=== PATIENT | female | born 1935 | race Caucasian/White ===

== ENCOUNTER → 2016-06-13 | Outpatient (CLI) | payer MEDICARE, OTHER ==
[2016-06-13 15:13] LABS: Basophils # (A) 0.1 k/uL (0-0.2); Basophils % (A) 1 %; CH 29.7; CHCM 33.7; Eosinophils # (A) 0.1 k/uL (0-0.7); Eosinophils % (A) 2 %; HCT 35.5 % (34.0-46.0); HDW 3.29; HGB 11.7 gm/dL (11.4-16.0); Luc # (Auto) 0.09; Luc % (Auto) 2; Lymphocytes # (A) 1.2 k/uL (1.0-4.8); Lymphocytes % (A) 20 %; MCH 29.1 pg (25.0-35.0); MCHC 32.9 g/dL (31.0-37.0); MCV 88.6 fL (80.0-100.0); Mean Platelet Volume 8.7; Monocytes # (A) 0.4 k/uL (0-1.0); Monocytes % (A) 6 %; Neutrophils % (A) 68 %; RBC 4.01 m/uL (3.80-5.40); RDW 15.2 % (11.5-15.5); WBC 5.9 k/uL (3.8-10.6); WBC (Perox) 6.29
== END | disposition home or self-care (01) ==
LOC: LABWHC1 14:34
PROVIDERS: ATTEND Physical Medicine & Rehabilitation
DX: M48.06 Spinal stenosis, lumbar region (principal); M51.17 Intervertebral disc disorders with radiculopathy, lumbosacral region; M47.817 Spondylosis without myelopathy or radiculopathy, lumbosacral region; M62.81 Muscle weakness (generalized); M54.5 Low back pain; E11.8 Type 2 diabetes mellitus with unspecified complications; R20.2 Paresthesia of skin; Z51.81 Encounter for therapeutic drug level monitoring; Z79.01 Long term (current) use of anticoagulants
CPT/HCPCS: 36415; 85025; 87040

== ENCOUNTER → 2016-07-01 | Outpatient (CLI) | payer MEDICARE, OTHER ==
[2016-07-01 10:41] LABS: INR 1.1 (<1.1); Partial Thromboplastin Time 25.4 sec (22.0-30.0); Prothrombin Time 11.2 sec (9.0-12.0)
[2016-07-01 10:49] LABS: ALT 25 U/L (9-52); AST 18 U/L (14-36); Cholesterol 144 mg/dL (<200); HDL Cholesterol 83 mg/dL (40-60); Triglycerides 120 mg/dL (<150)
== END | disposition home or self-care (01) ==
LOC: LABWHC1 09:42
PROVIDERS: ATTEND Internal Medicine Interventional Cardiology
DX: E87.2 Acidosis (principal); M54.5 Low back pain; E11.8 Type 2 diabetes mellitus with unspecified complications; M48.06 Spinal stenosis, lumbar region; M51.17 Intervertebral disc disorders with radiculopathy, lumbosacral region; M47.817 Spondylosis without myelopathy or radiculopathy, lumbosacral region; M62.81 Muscle weakness (generalized); R20.2 Paresthesia of skin; B96.5 Pseudomonas (aeruginosa) (mallei) (pseudomallei) as the cause of diseases classified elsewhere; Z79.01 Long term (current) use of anticoagulants
CPT/HCPCS: 36415; 80061; 84450; 84460; 85610; 85730

== ENCOUNTER → 2016-10-23 | Outpatient (CLI) | payer MEDICARE, OTHER ==
[2016-10-23 12:54] LABS: Basophils # (A) 0.1 k/uL (0-0.2); Basophils % (A) 1 %; CH 29.7; CHCM 33.5; Eosinophils # (A) 0.2 k/uL (0-0.7); Eosinophils % (A) 3 %; HCT 36.9 % (34.0-46.0); HDW 3.05; HGB 12.2 gm/dL (11.4-16.0); Luc # (Auto) 0.12; Luc % (Auto) 2; Lymphocytes # (A) 1.4 k/uL (1.0-4.8); Lymphocytes % (A) 22 %; MCH 29.5 pg (25.0-35.0); MCHC 33.1 g/dL (31.0-37.0); MCV 89.1 fL (80.0-100.0); Mean Platelet Volume 8.9; Monocytes # (A) 0.4 k/uL (0-1.0); Monocytes % (A) 6 %; Neutrophils # (A) 4.3 k/uL (1.3-7.7); Neutrophils % (A) 67 %; RBC 4.14 m/uL (3.80-5.40); WBC 6.4 k/uL (3.8-10.6); WBC (Perox) 6.48
[2016-10-23 13:02] LABS: ALT 28 U/L (9-52); AST 21 U/L (14-36); Alkaline Phosphatase 69 U/L (38-126); Anion Gap 9 mmol/L; Blood Urea Nitrogen 22 mg/dL (7-17); Calcium 9.8 mg/dL (8.4-10.2); Carbon Dioxide 29 mmol/L (22-30); Chloride 102 mmol/L (98-107); Cholesterol 172 mg/dL (<200); Glucose 88 mg/dL (74-99); HDL Cholesterol 92 mg/dL (40-60); Non-African American GFR(MDRD) >60 (>60 ml/min/1.73 sqM); Potassium 4.1 mmol/L (3.5-5.1); Sodium 140 mmol/L (137-145); Total Bilirubin 0.8 mg/dL (0.2-1.3); Total Protein 6.8 g/dL (6.3-8.2); Triglycerides 110 mg/dL (<150)
[2016-10-23 14:11] LABS: Hemoglobin A1C 5.6 % (4.2-6.1)
== END | disposition home or self-care (01) ==
LOC: LABWHC1 12:21
PROVIDERS: ATTEND Internal Medicine Critical Care Medicine
DX: I48.91 Unspecified atrial fibrillation (principal); E11.9 Type 2 diabetes mellitus without complications; Z79.899 Other long term (current) drug therapy
CPT/HCPCS: 36415; 80053; 80061; 82306; 83036; 84439; 84443; 85025

== ENCOUNTER → 2016-12-02 | Outpatient (CLI) | payer MEDICARE, OTHER ==
[2016-12-02 11:27] LABS: ALT 29 U/L (9-52); AST 20 U/L (14-36); Alkaline Phosphatase 67 U/L (38-126); Anion Gap 11 mmol/L; Blood Urea Nitrogen 20 mg/dL (7-17); Calcium 9.6 mg/dL (8.4-10.2); Carbon Dioxide 28 mmol/L (22-30); Chloride 102 mmol/L (98-107); Cholesterol 143 mg/dL (<200); Glucose 100 mg/dL (74-99); HDL Cholesterol 79 mg/dL (40-60); Non-African American GFR(MDRD) >60 (>60 ml/min/1.73 sqM); Potassium 4.1 mmol/L (3.5-5.1); Sodium 141 mmol/L (137-145); Total Bilirubin 0.8 mg/dL (0.2-1.3); Total Protein 6.7 g/dL (6.3-8.2); Triglycerides 83 mg/dL (<150)
[2016-12-02 12:02] LABS: Partial Thromboplastin Time 24.4 sec (22.0-30.0)
[2016-12-02 12:04] LABS: INR 1.1 (<1.1); Prothrombin Time 11.1 sec (9.0-12.0)
== END | disposition home or self-care (01) ==
LOC: LABMAIN 10:45
PROVIDERS: ATTEND Physical Medicine & Rehabilitation
DX: E78.2 Mixed hyperlipidemia (principal); M54.5 Low back pain; E11.8 Type 2 diabetes mellitus with unspecified complications; M48.06 Spinal stenosis, lumbar region; M51.17 Intervertebral disc disorders with radiculopathy, lumbosacral region; M47.817 Spondylosis without myelopathy or radiculopathy, lumbosacral region; M62.81 Muscle weakness (generalized); R20.2 Paresthesia of skin; Z79.01 Long term (current) use of anticoagulants
CPT/HCPCS: 36415; 80053; 80061; 85610; 85730

== ENCOUNTER 2017-11-24 14:11 | Emergency (ER) | payer MEDICARE, OTHER ==
[2017-11-24 14:22] VITALS: RESP 16
--- NOTE | 2017-11-24 15:00 | XR ---
EXAMINATION TYPE: XR ribs RT w pa chest xray DATE OF EXAM: 11/24/2017 COMPARISON: NONE HISTORY: Pain TECHNIQUE: Single view of the chest 4 views of the ribs are submitted. FINDINGS: Scattered senescent parenchymal changes are noted. No Evidence for pneumothorax. No eviden ce for focal contusion. Mediastinal structures are midline. Evaluation of the ribs fails to demonst rate evidence for displaced rib fracture or secondary sign of rib fracture. Severe degenerative quintanilla e right shoulder and to a lesser extent left shoulder. Loose bodies noted bilaterally. IMPRESSION: No evidence for pulmonary contusion, pneumothorax or displaced rib fracture.
--- NOTE | 2017-11-24 15:14 | XR ---
EXAMINATION TYPE: XR knee complete LT DATE OF EXAM: 11/24/2017 CLINICAL HISTORY: pain TECHNIQUE: Three views of the left knee are obtained. COMPARISON: None. FINDINGS: There is no acute fracture/dislocation. The tri-compartment joint spaces appear severely narrowed. The small patellar joint effusion. Overlying soft tissue appears unremarkable. IMPRESSION: There is no acute fracture or dislocation ICD 10 NO FRACTURE, INITIAL EVALUATION
--- NOTE | 2017-11-24 15:47 | ED ---
Fall HPI - General Chief Complaint: Fall Stated Complaint: fall/knee & side pain Time Seen by Provider: 11/24/17 14:27 Source: patient Mode of arrival: wheelchair - History of Present Illness Initial Comments: 82-year-old female patient presents the emergency department today for evaluation of right rib pain and left knee pain after experiencing a fall today. Patient states that around 10:30 this morning she was walking with her walker when she fell. States that she has been having some discomfort to her left knee when she bends it. States that she is having sharp pain in her right lateral ribs. States it hurts worse with taking deep breaths and with palpation of the area. She denies any shortness of breath or chest pain with this. She denies hitting her head or losing consciousness during the fall. Patient denies use of anticoagulants. Patient denies any headache, neck pain, back pain, chest pain, shortness of breath, dizziness, weakness, abdominal pain , nausea, vomiting, or difficulties with bowel movements or urination. - Related Data Home Medications Medication Instructions Recorded Confirmed Unable To Assess [Unable to Assess] 11/24/17 11/24/17 Allergies Allergy/AdvReac Type Severity Reaction Status Date / Time No Known Allergies Allergy Verified 11/24/17 14:28 Review of Systems ROS Statement: Those systems with pertinent positive or pertinent negative responses have been documented in the HPI. ROS Other: All systems not noted in ROS Statement are negative. Past Medical History Past Medical History: Atrial Fibrillation, Diabetes Mellitus, Hypertension Additional Past Medical History / Comment(s): skinny bones History of Any Multi-Drug Resistant Organisms: None Reported Past Surgical History: Cholecystectomy Additional Past Surgical History / Comment(s): knee surgery x 3 (right knee). Hammer toe Past Psychological History: No Psychological Hx Reported Smoking Status: Current every day smoker Past Alcohol Use History: None Reported, Occasional Past Drug Use History: None Reported General Exam Limitations: no limitations General appearance: alert, in no apparent distress, other (This is a well- developed, well-nourished elderly female patient in no acute distress. Vital signs upon presentation are temperature 97.4F, pulse 87, respiration 16, blood pressure 105/64, pulse ox 97% on room air.) Head exam: Present: atraumatic, normocephalic, normal inspection Eye exam: Present: normal appearance, PERRL, EOMI. Absent: scleral icterus, conjunctival injection, periorbital swelling ENT exam: Present: normal exam, mucous membranes moist Neck exam: Present: normal inspection, full ROM, other (Nontender, no step-off, no deformity to firm midline palpation of the posterior cervical spine. Full range of motion without pain or limitation.). Absent: tenderness, meningismus, lymphadenopathy Respiratory exam: Present: normal lung sounds bilaterally, chest wall tenderness (Right lateral rib tenderness over the midaxillary line. No evidence of ecchymosis or swelling. No bony step-off or bony deformity noted to palpation.), other (Respirations even and unlabored.). Absent: respiratory distress, wheezes, rales, rhonchi, stridor Cardiovascular Exam: Present: regular rate, normal rhythm, normal heart sounds. Absent: systolic murmur, diastolic murmur, rubs, gallop, clicks GI/Abdominal exam: Present: soft, normal bowel sounds. Absent: distended, tenderness, guarding, rebound, rigid Extremities exam: Present: full ROM, normal capillary refill, other (Patient has superficial abrasion noted to the left anterior knee. Some surrounding ecchymosis. Mild swelling. Patient has full range of motion but does report increased pain have full flexion. Skin to the lower extremities is pink, warm, and dry. Cap refills less than 3 seconds. Pedal and posttibial pulses are 2+ and equal bilaterally. Patient also has a linear strip of ecchymosis over the right hip. There is no hip tenderness. No pain with walking.). Absent: normal inspection, tenderness, pedal edema, joint swelling, calf tenderness Back exam: Present: normal inspection, other (Nontender, no step-off, no deformity to firm midline palpation of the thoracic and lumbar vertebrae. Full range of motion without pain or limitation.). Absent: vertebral tenderness Neurological exam: Present: alert, oriented X3, CN II-XII intact Psychiatric exam: Present: normal affect, normal mood Skin exam: Present: warm, dry, intact, normal color. Absent: rash Course Vital Signs 11/24/17 14:18 Temperature 97.4 F L Pulse Rate 87 Respiratory 16 Rate Blood Pressure 105/64 O2 Sat by Pulse 97 Oximetry Medical Decision Making - Medical Decision Making 82-year-old female patient presented to the emergency department today for evaluation of right rib pain and left knee pain after expressing a fall this morning at 10:30. Physical examination did reveal some tenderness to the right lateral ribs at the midaxillary line. Lungs are clear to auscultation with good air movement. Patient had ecchymosis noted to the right lateral hip with no hip tenderness or difficulty with ambulation. There is also evidence of left anterior knee abrasion with full range of motion and minimal bony tenderness. X-rays of the ribs and the knee showed no acute evidence of fracture. Did discuss findings with the patient. We did discuss coughing and deep breathing exercises for rib contusion. She does have tramadol at home, she is urged to take this for pain control. She is instructed to follow-up with her primary care physician for recheck in 1-2 days. Return parameters discussed in detail. She verbalizes understanding and agrees with this plan. - Radiology Data Radiology results: report reviewed, image reviewed 3 views of the left knee are obtained. There is no fracture nor dislocation. The tricompartment joint spaces appear severely narrowed. The small patellar joint effusion. Overlying soft tissue appears unremarkable. Impression by Dr. Blood shows no acute fracture dislocation noted. Single view of the chest and 4 views of the right ribs are submitted. Scattered senescent parenchymal changes are noted. No evidence for pneumothorax. No evidence for focal contusion. Mediastinal structures are midline. Evaluation of the ribs fails to demonstrate evidence for displaced rib fracture secondary sign of rib fracture. Severe degenerative change right shoulder and to a lesser extent left shoulder. Loose bodies noted bilaterally. Impression by Dr. Blood shows no evidence for pulmonary contusion, pneumothorax, or displaced rib fracture. Disposition Clinical Impression: Contusion of rib on right side, Contusion of left knee Disposition: HOME SELF-CARE Condition: Good Instructions: Fall Prevention for Older Adults (ED), Knee Pain (ED), Rib Contusion (ED) Additional Instructions: Continue taking home pain medication as needed. Perform coughing and deep breathing exercises to prevent pneumonia. Follow-up with your primary care physician for recheck in 1-2 days. Return here immediately for any new, worsening, or concerning symptoms. Is patient prescribed a controlled substance at d/c from ED?: No Referrals: George Quesada DO [Primary Care Provider] - 1-2 days Time of Disposition: 15:47
[2017-11-24 16:03] VITALS: BP 110/78; PULSE 81; TEMP 98.2
== END 2017-11-24 15:59 | disposition home or self-care (01) ==
LOC: EC 14:11
DX: S20.211A Contusion of right front wall of thorax, initial encounter (principal); S80.02XA Contusion of left knee, initial encounter; F17.200 Nicotine dependence, unspecified, uncomplicated; W19.XXXA Unspecified fall, initial encounter; Y92.009 Unspecified place in unspecified non-institutional (private) residence as the place of occurrence of the external cause
CPT/HCPCS: 99283

== ENCOUNTER → 2018-05-10 | Outpatient (CLI) | payer MEDICARE, OTHER ==
[2018-05-10 11:27] LABS: Basophils % (A) 1 %; Eosinophils # (A) 0.2 k/uL (0-0.7); Eosinophils % (A) 4 %; HCT 35.7 % (34.0-46.0); Lymphocytes # (A) 1.3 k/uL (1.0-4.8); Lymphocytes % (A) 21 %; MCH 30.5 pg (25.0-35.0); MCHC 33.7 g/dL (31.0-37.0); MCV 90.5 fL (80.0-100.0); Mean Platelet Volume 8.6; Monocytes # (A) 0.4 k/uL (0-1.0); Monocytes % (A) 7 %; Neutrophils # (A) 3.9 k/uL (1.3-7.7); Neutrophils % (A) 66 %; Platelet Count 128 k/uL (150-450); RBC 3.94 m/uL (3.80-5.40); RDW 14.7 % (11.5-15.5); WBC 5.9 k/uL (3.8-10.6)
[2018-05-10 17:20] LABS: Albumin 4.4 g/dL (3.80-4.90); Albumin/Globulin Ratio 2.44 (1.20-2.10); Anion Gap 6.1 mmol/L (4.00-12.00); Calcium 9.7 mg/dL (8.7-10.3); Carbon Dioxide 28.9 mmol/L (21.6-31.8); Globulin 1.8 g/dL (2.1-3.7); Potassium 4.2 mmol/L (3.5-5.5); Total Bilirubin 0.8 mg/dL (0.3-1.2); Total Protein 6.2 g/dL (6.2-8.2)
[2018-05-10 21:42] LABS: Hemoglobin A1C 5.3 % (4.0-6.0)
== END | disposition home or self-care (01) ==
LOC: LABWHC1 09:47
PROVIDERS: ATTEND Internal Medicine Interventional Cardiology
DX: E78.00 Pure hypercholesterolemia, unspecified (principal); G47.00 Insomnia, unspecified; I10 Essential (primary) hypertension; K21.9 Gastro-esophageal reflux disease without esophagitis; E11.9 Type 2 diabetes mellitus without complications; J44.9 Chronic obstructive pulmonary disease, unspecified; I25.10 Atherosclerotic heart disease of native coronary artery without angina pectoris; E78.2 Mixed hyperlipidemia
CPT/HCPCS: 36415; 80053; 80061; 82306; 83036; 84439; 84443; 85025

== ENCOUNTER 2018-10-10 20:17 | Emergency (ER) | payer MEDICARE, OTHER ==
[2018-10-10 20:28] VITALS: RESP 16; TEMP 98
[2018-10-10] MEDS ORDERED: DIPH,PERTUS(ACELL)TETVAC-LF 0.5 ML VIAL IM ONE (21:31)
[2018-10-10] MEDS ORDERED: LIDOCAINE 1% INJ 10MG/ML (20 ML MDV) SQ ONE (21:45)
--- NOTE | 2018-10-10 22:34 | ED ---
Wound/Laceration HPI - General Chief Complaint: Wound/Laceration Stated Complaint: Leg lac Time Seen by Provider: 10/10/18 20:43 Source: patient, family Mode of arrival: ambulatory Limitations: no limitations - History of Present Illness Initial Comments: The patient is an 83-year-old female who presents to the emergency department with complaint of laceration to her right hernandez. The patient was getting into the car when she scraped her leg against the edge of the door. She did sustain a laceration. The patient is on Eliquis for A. fib and did have significant bleeding from the site. Family did hold compression and brought the patient to the emergency room for evaluation. The patient does have chronic venous stasis of her lower extremities. She does have 4+ pitting edema which she states is chronic for her. Her PCP does recommend treatment with Lasix however the patient states she refuses to take any additional suggested amounts. she has seen her primary care physician as well as wound care. She admits that her lower extremity wounds are at their baseline and no worse than normal. No increased swelling, redness or pustular drainage. Bleeding was controlled upon arrival. She denies any other injuries. She is unsure of her last tetanus vaccination. She denies a crush injury to her lower extremity. She was able to ambulate without difficulty. There are no other alleviating, precipitating or modifying factors - Related Data Home Medications Medication Instructions Recorded Confirmed Apixaban [Eliquis] 2.5 mg PO BID 10/10/18 10/10/18 Ascorbic Acid [Vitamin C] 500 mg PO DAILY 10/10/18 10/10/18 Atorvastatin [Lipitor] 40 mg PO DAILY 10/10/18 10/10/18 Cetirizine HCl [Zyrtec] 10 mg PO DAILY 10/10/18 10/10/18 Cholecalciferol [Vitamin D3 (25 1,000 unit PO DAILY 10/10/18 10/10/18 Mcg = 1000 Iu)] Fosinopril/Hydrochlorothiazide 1 tab PO DAILY 10/10/18 10/10/18 [Monopril HCT 10-12.5 mg] Latanoprost/Pf [Latanoprost 0.005% 1 drop BOTH EYES HS 10/10/18 10/10/18 Eye Drop] Metoprolol Tartrate [Lopressor] 50 mg PO DAILY 10/10/18 10/10/18 Multivitamins, Thera [Multivitamin 1 tab PO DAILY 10/10/18 10/10/18 (formulary)] Timolol 0.5% Ophth Soln [Timoptic 1 drop LEFT EYE BID 10/10/18 10/10/18 0.5% Ophth Soln] metFORMIN HCL [metFORMIN HCL ER] 750 mg PO BID 10/10/18 10/10/18 traMADol HCL [Ultram] 50 mg PO Q6HR PRN 10/10/18 10/10/18 Allergies Allergy/AdvReac Type Severity Reaction Status Date / Time No Known Allergies Allergy Verified 10/10/18 21:00 Review of Systems ROS Statement: Those systems with pertinent positive or pertinent negative responses have been documented in the HPI. ROS Other: All systems not noted in ROS Statement are negative. Past Medical History Past Medical History: Atrial Fibrillation, Diabetes Mellitus, Hypertension Additional Past Medical History / Comment(s): skinny bones History of Any Multi-Drug Resistant Organisms: None Reported Past Surgical History: Cholecystectomy Additional Past Surgical History / Comment(s): knee surgery x 5 (right knee). Hammer toe Past Psychological History: No Psychological Hx Reported Smoking Status: Current every day smoker Past Alcohol Use History: Occasional Past Drug Use History: None Reported General Exam Limitations: no limitations Extremities exam: Present: normal inspection, normal capillary refill, pedal edema, other (The patient does have 4+ pitting edema to her bilateral lower extremities. She has chronic venous stasis with brawny edema. There is a red discoloration noted to the shins which is worse on the right hernandez. She states this is chronic for her. She has decreased extension with the right knee secondary to previous surgical repair. She states she does not have a patella on the right. She is ambulatory without difficulty.) Skin exam: Present: other (The patient has a 5 cm laceration noted over the anterior lateral aspect of her right hernandez. Bleeding is controlled at this time. Meticulous exploration in a bloodless field reveals no deep structure involvement. No tendon, vascular or nerve involvement. No underlying bony fracture or retained foreign bodies. The patient does have intact dorsalis pedis and posterior tibial pulses. Cap refill is less than 3 seconds) Course Vital Signs 10/10/18 10/10/18 20:25 22:56 Temperature 98 F Pulse Rate 84 72 Respiratory 16 16 Rate Blood Pressure 124/70 115/85 O2 Sat by Pulse 90 L 98 Oximetry Procedures - Laceration Laceration #1 Consent Obtained: verbal consent Indication: laceration Site: lower extremity Size (cm): 5 Description: linear Depth: simple, single layer Anesthetic Used: lidocaine 1%, without epi Anesthesia Technique: local infiltration Amount (mls): 15 Pre-repair: wound explored, irrigated extensively, deep structures intact Type of Sutures: nylon Size of Sutures: 4-0 Number of Sutures: 5 Technique: simple, interrupted Patient Tolerated Procedure: well, no complications Medical Decision Making - Medical Decision Making The patient was placed into room 11. I did update the patient's tetanus shot. The patient's wound was cleansed and explored. Suture repair was performed. Please see procedure note. Patient is to follow-up with her primary care physician within 2-4 days for evaluation of the wound. She must have her sutures removed in 7-10 days. If the patient has any new or worsening symptoms, she needs to return to the emergency Department immediately. She is educated on the warning signs of infection. The patient was discharged home ambulatory in stable condition - Differential Diagnosis skin laceration, blunt trauma, eliquis coagulopathy Disposition Clinical Impression: Laceration Disposition: HOME SELF-CARE Condition: Stable Instructions (If sedation given, give patient instructions): Care For Your Stitches (ED), Laceration (ED) Additional Instructions: Please follow-up with your doctor in 2-4 days for reevaluation. You will need your stitches out in 7-10 days. Return to the emergency department for any pustular drainage, increasing redness or swelling. Is patient prescribed a controlled substance at d/c from ED?: No Referrals: George Quesada DO [Primary Care Provider] - 1-2 days Time of Disposition: 22:33
[2018-10-10 22:56] VITALS: BP 115/85; PULSE 72
== END 2018-10-10 23:45 | disposition home or self-care (01) ==
LOC: EC 20:17
DX: S81.811A Laceration without foreign body, right lower leg, initial encounter (principal); I48.91 Unspecified atrial fibrillation; E11.9 Type 2 diabetes mellitus without complications; I10 Essential (primary) hypertension; F17.200 Nicotine dependence, unspecified, uncomplicated; Z23 Encounter for immunization; Z79.01 Long term (current) use of anticoagulants; Z79.84 Long term (current) use of oral hypoglycemic drugs; Z79.899 Other long term (current) drug therapy; W26.8XXA Contact with other sharp object(s), not elsewhere classified, initial encounter
CPT/HCPCS: 90715; 99282; 12002; 90471; J2001

== ENCOUNTER → 2019-07-12 | Outpatient (CLI) | payer MEDICARE, OTHER ==
[2019-07-12 13:02] LABS: Basophils % (A) 1 %; Eosinophils # (A) 0.2 k/uL (0-0.7); Eosinophils % (A) 4 %; HCT 34.1 % (34.0-46.0); HGB 10.7 gm/dL (11.4-16.0); Lymphocytes # (A) 0.9 k/uL (1.0-4.8); Lymphocytes % (A) 19 %; MCHC 31.5 g/dL (31.0-37.0); MCV 95.2 fL (80.0-100.0); Mean Platelet Volume 9.7; Monocytes # (A) 0.2 k/uL (0-1.0); Monocytes % (A) 5 %; Neutrophils # (A) 3.2 k/uL (1.3-7.7); Neutrophils % (A) 70 %; Platelet Count 114 k/uL (150-450); RBC 3.58 m/uL (3.80-5.40); RDW 13.8 % (11.5-15.5); WBC 4.6 k/uL (3.8-10.6)
[2019-07-12 18:46] LABS: African American GFR (CKD) 60.8 (60.0-200.0); Albumin 4.4 g/dL (3.80-4.90); Albumin/Globulin Ratio 2.44 (1.60-3.17); Anion Gap 5.3 mmol/L (4.00-12.00); Calcium 9.5 mg/dL (8.7-10.3); Carbon Dioxide 28.7 mmol/L (21.6-31.8); Chol/HDL Ratio 1.6; Globulin 1.8 g/dL (1.6-3.3); LDL Cholesterol,Calculated 41.4 mg/dL (0.0-131.0); Non-African American GFR(CKD) 52.4 (60.0-200.0); Potassium 4.5 mmol/L (3.5-5.5); Total Bilirubin 0.9 mg/dL (0.2-1.2); Total Protein 6.2 g/dL (6.2-8.2); VLDL Calculation 10.6 mg/dL (5.00-40.00)
[2019-07-12 18:53] LABS: T4, Free (Free Thyroxine) 1.1 ng/dL (0.80-1.80)
[2019-07-12 21:09] LABS: Hemoglobin A1C 5.4 % (4.0-6.0)
== END | disposition home or self-care (01) ==
LOC: LABWHC1 12:07
PROVIDERS: ATTEND Internal Medicine Critical Care Medicine
DX: I10 Essential (primary) hypertension (principal); H81.10 Benign paroxysmal vertigo, unspecified ear; E78.5 Hyperlipidemia, unspecified; E11.9 Type 2 diabetes mellitus without complications; I48.91 Unspecified atrial fibrillation; G47.09 Other insomnia
CPT/HCPCS: 36415; 80053; 80061; 82306; 83036; 84439; 84443; 85025

== ENCOUNTER → 2019-12-02 | Outpatient (CLI) | payer MEDICARE, OTHER ==
[2019-12-02 17:41] LABS: Albumin 4.1 g/dL (3.80-4.90); Albumin/Globulin Ratio 2.05 (1.60-3.17); Anion Gap 5.5 mmol/L (4.00-12.00); BUN/Creat Ratio 25.56 Ratio (12.00-20.00); Calcium 9.5 mg/dL (8.7-10.3); Carbon Dioxide 29.5 mmol/L (21.6-31.8); Chol/HDL Ratio 1.6; LDL Cholesterol,Calculated 36.2 mg/dL (0.0-131.0); Non-African American GFR(CKD) 59.5 (60.0-200.0); Potassium 4.3 mmol/L (3.5-5.5); Total Bilirubin 1.1 mg/dL (0.2-1.2); Total Protein 6.1 g/dL (6.2-8.2); VLDL Calculation 10.8 mg/dL (5.00-40.00)
== END | disposition home or self-care (01) ==
LOC: LABWHC1 11:07
PROVIDERS: ATTEND Internal Medicine Interventional Cardiology
DX: E78.2 Mixed hyperlipidemia (principal)
CPT/HCPCS: 36415; 80053; 80061

== ENCOUNTER → 2019-12-26 | Outpatient (CLI) | payer MEDICARE, OTHER ==
[2019-12-26 14:57] LABS: Basophils % (A) 1 %; Eosinophils # (A) 0.1 k/uL (0-0.7); Eosinophils % (A) 3 %; HCT 32.2 % (34.0-46.0); HGB 10.8 gm/dL (11.4-16.0); Lymphocytes # (A) 0.9 k/uL (1.0-4.8); Lymphocytes % (A) 18 %; MCH 30.9 pg (25.0-35.0); MCHC 33.4 g/dL (31.0-37.0); MCV 92.6 fL (80.0-100.0); Mean Platelet Volume 8.8; Monocytes # (A) 0.3 k/uL (0-1.0); Monocytes % (A) 6 %; Neutrophils # (A) 3.6 k/uL (1.3-7.7); Neutrophils % (A) 72 %; Platelet Count 100 k/uL (150-450); RBC 3.48 m/uL (3.80-5.40); RDW 14.1 % (11.5-15.5)
[2019-12-26 21:37] LABS: African American GFR (CKD) 60.8 (60.0-200.0); Albumin 4.3 g/dL (3.80-4.90); Albumin/Globulin Ratio 2.15 (1.60-3.17); Anion Gap 6.9 mmol/L (4.00-12.00); Calcium 9.4 mg/dL (8.7-10.3); Carbon Dioxide 27.1 mmol/L (21.6-31.8); Non-African American GFR(CKD) 52.4 (60.0-200.0); Potassium 4.6 mmol/L (3.5-5.5); Total Bilirubin 1.1 mg/dL (0.3-1.2); Total Protein 6.3 g/dL (6.2-8.2)
== END | disposition home or self-care (01) ==
LOC: LABWHC1 12:28
PROVIDERS: ATTEND Internal Medicine Critical Care Medicine
DX: D50.9 Iron deficiency anemia, unspecified (principal)
CPT/HCPCS: 36415; 80053; 85025

== ENCOUNTER → 2020-01-17 | Outpatient (CLI) | payer MEDICARE, OTHER ==
[2020-01-17 15:23] LABS: HCT 33.6 % (34.0-46.0); MCH 29.9 pg (25.0-35.0); MCHC 32.6 g/dL (31.0-37.0); MCV 91.5 fL (80.0-100.0); Mean Platelet Volume 9.1; Platelet Count 104 k/uL (150-450); RBC 3.67 m/uL (3.80-5.40); RDW 14.3 % (11.5-15.5); WBC 6.6 k/uL (3.8-10.6)
[2020-01-17 15:34] LABS: Potassium 4.7 mmol/L (3.5-5.1)
== END | disposition home or self-care (01) ==
LOC: LABPAT 13:53
PROVIDERS: ATTEND Internal Medicine Interventional Cardiology
DX: Z01.818 Encounter for other preprocedural examination (principal); E78.2 Mixed hyperlipidemia; I48.19 Other persistent atrial fibrillation
CPT/HCPCS: 36415; 80051; 82565; 82947; 84520; 85027

== ENCOUNTER 2020-01-24 09:28 | Day surgery (SDC) | payer MEDICARE, OTHER ==
[2020-01-17 13:08] VITALS: BMI 31.3
[~2020-01-24 09:28] MED LIST: ALPRAZolam 0.25 MG TAB PO PRN; ALPRAZolam 0.5 MG TAB PO PRN; ASPIRIN 325 MG TAB PO STA; ATORVASTATIN 80 MG TAB PO STA; NITROGLYCERIN SL TABS 0.4 MG TAB SUBLINGUAL PRN; SODIUM CHLORIDE 0.9% 1,000 ML in EMPTY BAG 1 BAG IV ONE
[2020-01-24 10:08] LABS: Glucose,Whole Blood 113 mg/dL (75-99)
[2020-01-24] MEDS ORDERED: fentaNYL (PF) 50 MCG/ML 2 ML AMP ONE ×2 (11:27)
[2020-01-24] MEDS ORDERED: BENZOCAINE SPRAY 1 CAN TOPICAL ONE ×2 (11:42→11:48)
[2020-01-24] MEDS ORDERED: MIDAZOLAM 2 MG/2 ML VIAL IV ONE (11:48)
[2020-01-24] MEDS ORDERED: fentaNYL (PF) 50 MCG/ML 2 ML AMP IV ONE (11:50)
--- NOTE | 2020-01-24 12:30 | ECHOT ---
TRANSESOPHAGEAL ECHOCARDIOGRAM TRANSESOPHAGEAL ECHOCARDIOGRAM: INDICATION: Evaluation of aortic valve. PROCEDURE: After explaining the procedure to the patient with risks and complication, blood pressure, heart rate, O2 saturation was monitored. The throat was sprayed with Cetacaine. She received 1 mg intravenous Versed, 50 mcg intravenous fentanyl the probe was introduced in the esophagus without difficulty. Images were obtained. Following that, the probe was removed. There was no immediate complication. Biatrial enlargement was noted. Left atrial appendage is normal. Left ventricular size and systolic function normal. The aortic valve is a tricuspid valve with severe fibrocalcific changes with reduced deduction of the opening. The biplanimetry valve area is between 0.5 and 0.6 cm2. The mitral anulus calcification was noted, tricuspid valve is normal. Descending thoracic aorta revealed mild to moderate atherosclerotic changes. No pericardial effusion was noted. Contrast bubble study revealed no evidence of shunting across the interatrial septum with Valsalva maneuver. Doppler pulse wave and color Doppler obtained revealed moderate mitral with moderate tricuspid regurgitation and mild to moderate aortic regurgitation. The peak gradient across the aortic valve was 75 mmHg with a mean of 51 mmHg. There was no shunting by color Doppler study. CONCLUSION: 1. Biatrial enlargement. 2. Normal appearance of left atrial appendage. 3. Normal left ventricular size and systolic function. 4. Severe aortic stenosis with a mean gradient of 51 mmHg and mild to moderate aortic regurgitation. 5. Moderate tricuspid regurgitation with mitral anulus calcification. 6. Moderate tricuspid regurgitation. 7. No pericardial effusion. 8. No shunting across the interatrial septum. MMODL / IJN: [id number] /
[2020-01-24] MEDS ORDERED: LIDOCAINE 1% INJ 10MG/ML (20 ML MDV) SQ ONE (12:38)
[2020-01-24] MEDS ORDERED: IOPAMIDOL-370 125ML BTL INJ ONE (13:02)
[2020-01-24 13:04] LABS: O2 Sat Blood Gas 99.2 %
[2020-01-24 13:06] LABS: O2 Sat Blood Gas 69.4 %
[2020-01-24] MEDS ORDERED: RX INFO: IV CONTRAST WAS GIVEN 1 EACH MISC MISCELLANE PRN (13:09)
[2020-01-24 13:11] LABS: O2 Sat Blood Gas 70.3 %
[2020-01-24] MEDS ORDERED: SODIUM CHLORIDE 0.9% 1,000 ML IV SCH (13:15)
[2020-01-24 14:16] VITALS: RESP 16; TEMP 98.1
--- NOTE | 2020-01-24 14:56 | CC ---
CARDIAC CATHETERIZATION REPORT Mrs. Miranda is an 84-year-old female with known history of aortic stenosis, history of diabetes, hypertension, who has been complaining of progressive dyspnea on exertion, was found to have severe aortic stenosis. A long discussion with her and her family regarding the options. Patient elected to proceed with further evaluation for possible TAVR. The procedures, risks, and complications were discussed with the patient, who is in full understanding and agreement. PROCEDURE: Patient was brought to labor relations consultant in a fasting semi-sedated state after receiving fentanyl and Benadryl and achieving moderate conscious sedated state. Using Xylocaine anesthesia and Seldinger technique, a 6-Cymro sheath was introduced in the right rate of right femoral artery and an 8-Cymro sheath in the right femoral vein. Right heart catheterization was performed using Willmar-Neetu catheter, multiple impressions and samples were obtained. Cardiac output by thermodilution was calculated. Following that, selective right and left coronary angiography were performed using 6- Cymro 4 bend, right and left Morris catheter,. multiple views of the coronary artery including hemiaxial views obtained. Following that, the right Morris was used to cross the aortic valve and pressures were calculated. Following that, catheter and sheath were removed. Hemostasis was obtained with compression of right groin. There was no immediate complication. Patient is returned to her room in stable condition. FINDINGS: HEMODYNAMICS: Pulmonary capillary wedge pressure of 28 with a mean of 60 mmHg, pulmonary artery systolic pressure of 40, diastolic of 16 with a mean of 25 mmHg. Right ventricle systolic pressure 42 mmHg with an end-diastolic of 10-12 mmHg, right atrial V- wave of 12 with a mean of 11 mmHg Left ventricular systolic pressure of 140 with an ascending aortic pressure of 89 with a peak gradient of 51 mmHg. Pulmonary artery saturation of 69.4 right atrium, 70% and femoral artery saturation 99%. Cardiac output by thermodilution was 5 L/minute and by Ema 4.1 L/minute. Aortic valve area 0.93 cm2. FLUOROSCOPY: Calcification of the coronary arteries was noted as well as calcification of the aortic valve. EFT MAIN: This is a large-sized vessel, bifurcating into left circumflex, left anterior descending artery. Left main coronary artery has no evidence of high- grade stenosis. LEFT ANTERIOR DESCENDING ARTERY: This is a large-sized vessel, reaching toward the apex giving rise to a large diagonal branch proximally at the takeoff of diagonal branch there is 20% to 30% plaque. The rest of the vessel has no high-grade stenosis. LEFT CIRCUMFLEX: This is a large dominant vessel giving rise to one obtuse marginal branch, distally PDA and PLV. The left circumflex has mild intimal disease in the distal segment, about 20% left circumflex. This is a codominant vessel giving rise to a right PDA. The right coronary artery has no evidence of high-grade stenosis. LEFT VENTRICULOGRAM: Left ventriculogram is not performed. CONCLUSION: 1. Calcified coronary artery with mild coronary artery disease. 2. Severe aortic stenosis. 3. Peripheral artery disease. RECOMMENDATION: In view of finding anatomy, I recommend proceeding with evaluation for aortic valve replacement. The rationale behind the procedure, its risks, as well as the findings were discussed with the patient and her family and they are in full understanding and agreement. Duration of sedation is 24 minutes. MMTANESHAL / RISHABHN: [id number] / [id number]
[2020-01-24 16:37] LABS: Glucose,Whole Blood 95 mg/dL (75-99)
[2020-01-24 17:22] VITALS: BP 112/63; PULSE 93
[2020-01-24] MEDS ORDERED: LATANOPROST 0.005% OPHTH DROPS 2.5 ML BTL RIGHT EYE SCH (21:00)
[2020-01-25] MEDS ORDERED: METOPROLOL TARTRATE 50 MG TAB PO SCH (09:00)
[2020-01-25] MEDS ORDERED: hydroCHLOROthiazide 12.5 MG CAP PO SCH (09:00)
[2020-01-25] MEDS ORDERED: lisinopriL 10 MG TAB PO SCH (09:00)
[2020-01-25] MEDS ORDERED: MULTIVITAMINS, THERA 1 EACH TAB PO SCH (09:00)
[2020-01-25] MEDS ORDERED: ASCORBIC ACID 500 MG TAB PO SCH (09:00)
[2020-01-26] MEDS ORDERED: ATORVASTATIN 40 MG TAB PO SCH (09:00)
== END 2020-01-24 19:30 | disposition home or self-care (01) ==
LOC: CATHCVL 09:28 → 3NCARDOBS 13:05 → CATHCVL 19:30
PROVIDERS: ATTEND Internal Medicine Interventional Cardiology
DX: I25.10 Atherosclerotic heart disease of native coronary artery without angina pectoris (principal); I08.3 Combined rheumatic disorders of mitral, aortic and tricuspid valves; I10 Essential (primary) hypertension; I48.19 Other persistent atrial fibrillation; I73.9 Peripheral vascular disease, unspecified; E78.2 Mixed hyperlipidemia; E11.9 Type 2 diabetes mellitus without complications; J44.9 Chronic obstructive pulmonary disease, unspecified; M19.90 Unspecified osteoarthritis, unspecified site; F17.210 Nicotine dependence, cigarettes, uncomplicated; Z79.01 Long term (current) use of anticoagulants; Z79.84 Long term (current) use of oral hypoglycemic drugs; Z79.899 Other long term (current) drug therapy; Z96.651 Presence of right artificial knee joint; Z90.49 Acquired absence of other specified parts of digestive tract
CPT/HCPCS: 93312; 93320; 93325; 93460; 85018; 82810; C1769 ×2; C1894 ×2; J2250; J2001; J3010; Q9967

== ENCOUNTER → 2020-03-08 | Outpatient (CLI) | payer MEDICARE, OTHER ==
[2020-03-08 12:05] LABS: HCT 34.1 % (34.0-46.0); HGB 11.1 gm/dL (11.4-16.0); Hypochromasia Slight; MCH 31.2 pg (25.0-35.0); MCHC 32.7 g/dL (31.0-37.0); MCV 95.5 fL (80.0-100.0); Mean Platelet Volume 8.7; Platelet Count 116 k/uL (150-450); RBC 3.57 m/uL (3.80-5.40); RDW 14.5 % (11.5-15.5); WBC 4.4 k/uL (3.8-10.6)
[2020-03-09 00:58] LABS: African American GFR (CKD) 60.3 (60.0-200.0); Albumin 4.5 g/dL (3.80-4.90); Albumin/Globulin Ratio 2.25 (1.60-3.17); Anion Gap 10.6 mmol/L (4.00-12.00); Calcium 9.6 mg/dL (8.7-10.3); Carbon Dioxide 25.4 mmol/L (21.6-31.8); Non-African American GFR(CKD) 52.1 (60.0-200.0); Potassium 4.5 mmol/L (3.5-5.5); Total Bilirubin 1.2 mg/dL (0.3-1.2); Total Protein 6.5 g/dL (6.2-8.2)
== END | disposition home or self-care (01) ==
LOC: LABWHC1 10:28
PROVIDERS: ATTEND Student in an Organized Health Care Education/Training Program
DX: I10 Essential (primary) hypertension (principal); R06.02 Shortness of breath
CPT/HCPCS: 36415; 80053; 83880; 85027

== ENCOUNTER → 2020-06-06 | Outpatient (CLI) | payer MEDICARE, OTHER ==
[2020-06-06 16:42] LABS: African American GFR (CKD) 53.8 (60.0-200.0); Albumin 4.4 g/dL (3.80-4.90); Albumin/Globulin Ratio 2.2 (1.60-3.17); Anion Gap 9.5 mmol/L (4.00-12.00); BUN/Creat Ratio 31.82 Ratio (12.00-20.00); Calcium 9.5 mg/dL (8.7-10.3); Carbon Dioxide 27.5 mmol/L (21.6-31.8); Chol/HDL Ratio 1.71; LDL Cholesterol,Calculated 43.8 mg/dL (0.0-131.0); Non-African American GFR(CKD) 46.4 (60.0-200.0); Potassium 4.3 mmol/L (3.5-5.5); Total Bilirubin 0.9 mg/dL (0.3-1.2); Total Protein 6.4 g/dL (6.2-8.2); VLDL Calculation 15.2 mg/dL (5.00-40.00)
== END | disposition home or self-care (01) ==
LOC: LABWHC1 09:58
PROVIDERS: ATTEND Internal Medicine Interventional Cardiology
DX: E78.2 Mixed hyperlipidemia (principal)
CPT/HCPCS: 36415; 80053; 80061

== ENCOUNTER → 2020-12-12 | Outpatient (CLI) | payer MEDICARE, OTHER ==
[2020-12-12 18:13] LABS: Basophils # (A) 0.05 X 10*3/uL (0.00-0.10); Basophils % (A) 0.9 %; Eosinophils # (A) 0.13 X 10*3/uL (0.04-0.35); Eosinophils % (A) 2.4 %; HCT 35.8 % (37.2-46.3); HGB 11.5 g/dL (12.0-15.0); Lymphocytes % (A) 20.6 %; MCH 29.9 pg (27.0-32.0); MCHC 32.1 g/dL (32.0-37.0); MCV 93.2 fL (80.0-97.0); Mean Platelet Volume 11.8 fL (9.5-12.2); Monocytes # (A) 0.49 X 10*3/uL (0.20-1.00); Monocytes % (A) 9.2 %; Neutrophils # (A) 3.54 X 10*3/uL (1.80-7.70); Neutrophils % (A) 66.5 %; Platelet Count 127 X 10*3/uL (140-440); RBC 3.84 X 10*6/uL (4.10-5.20); RDW 14.2 % (11.5-14.5); WBC 5.33 X 10*3/uL (4.50-10.00)
[2020-12-12 20:41] LABS: ALT 13 U/L (8-44); AST 20 U/L (13-35); African American GFR (CKD) 48.4 (60.0-200.0); Albumin/Globulin Ratio 1.83 (1.60-3.17); Alkaline Phosphatase 113 U/L (41-126); BUN/Creat Ratio 26.67 Ratio (12.00-20.00); Calcium 9.4 mg/dL (8.7-10.3); Carbon Dioxide 27.5 mmol/L (21.6-31.8); Chloride 103 mmol/L (96-109); Chol/HDL Ratio 1.77; Cholesterol 163 mg/dL (0-200); Globulin 2.4 g/dL (1.6-3.3); Glucose 85 mg/dL (70-110); LDL Cholesterol,Calculated 57.2 mg/dL (0.0-131.0); Non-African American GFR(CKD) 41.8 (60.0-200.0); Potassium 4.6 mmol/L (3.5-5.5); Sodium 138 mmol/L (135-145); Total Bilirubin 0.8 mg/dL (0.2-1.2); Total Protein 6.8 g/dL (6.2-8.2)
[2020-12-12 20:43] LABS: Hemoglobin A1C 5.5 % (4.0-6.0)
[2020-12-12 21:11] LABS: Folate, Serum >24.0 ng/mL
[2020-12-12 21:34] LABS: Vitamin B12 >4000.0 pg/mL (211-911)
== END | disposition home or self-care (01) ==
LOC: LABWHC1 12:12
PROVIDERS: ATTEND Internal Medicine Interventional Cardiology
DX: I35.0 Nonrheumatic aortic (valve) stenosis (principal); I48.91 Unspecified atrial fibrillation; I10 Essential (primary) hypertension; E11.9 Type 2 diabetes mellitus without complications; K21.9 Gastro-esophageal reflux disease without esophagitis; E78.5 Hyperlipidemia, unspecified
CPT/HCPCS: 36415; 80053; 80061; 82306; 82607; 82746; 83036; 84439; 84443; 84550; 85025

== ENCOUNTER → 2020-12-26 | Outpatient (CLI) | payer MEDICARE, OTHER ==
--- NOTE | 2020-12-26 12:46 | CT ---
EXAMINATION TYPE: CT soft tissue neck wo con DATE OF EXAM: 12/26/2020 COMPARISON: None HISTORY: Neck mass CT DLP: 287.[address] of the neck was performed from the skull base through the lung apices. The lack of cont rast limits evaluation. AIRWAY: The supraglottic, glottic, and subglottic portions of the airway appear patent and free of mass. SALIVARY GLANDS: Solid mass extending from the mid parotid gland to the extraparotid soft tissues cau dally. The mass measures approximately 5.2 cm in length by 2.5 cm in transverse dimension and may ref lect conglomerate adenopathy. Mass of other etiology or parotid origin mass is not excluded. There ar e also adjacent smaller lymph nodes identified within the left neck subcutaneously measuring 1. 3.3 c m respectively. There is a 1.4 cm soft tissue nodule overlying the lower pole of the right parotid gl and which may reflect adenopathy versus intraparotid lesion. The submandibular glands are free of mass or inflammatory process. THYROID GLAND: No nodules or masses seen. LUNG APICES: No nodule or mass is seen. OTHER: Vascular structures are patent. No significant degenerative change of the cervical spine. N o abscess seen. IMPRESSION: 1.solid mass extending from the mid parotid gland to the extraparotid soft tissues caudally. The mass measures approximately 5.2 cm in length by 2.5 cm in transverse dimension and may reflect conglomera te adenopathy. Mass of other etiology or parotid origin mass is not excluded. Additional adenopathy i s noted. Right periparotid lesion noted
== END | disposition home or self-care (01) ==
LOC: RADCTMAIN 10:31
PROVIDERS: ATTEND Internal Medicine Critical Care Medicine
DX: K11.8 Other diseases of salivary glands (principal); R59.0 Localized enlarged lymph nodes
CPT/HCPCS: 36415; 70490; 82565; 84520

== ENCOUNTER 2020-12-31 09:20 | Day surgery (SDC) | payer MEDICARE, OTHER ==
[2020-12-31 10:02] VITALS: RESP 16; TEMP 98
[2020-12-31] MEDS ORDERED: ALPRAZolam 0.25 MG TAB PO STA (10:09)
--- NOTE | 2020-12-31 11:06 | US ---
ULTRASOUND GUIDED CORE BIOPSY LEFT PAROTID MASS: CLINICAL HISTORY: Left parotid mass FINDINGS: The procedure was explained to the patient. The risks, complications, benefits and alternatives were discussed and any questions were answered. Informed consent was obtained. Patient was placed supin e on the ultrasound table and prepped and draped in the usual sterile fashion. Utilizing a 18 gauge needle, two passes were made into the requested left parotid mass. Patient was stable throughout the procedure. Pathology is pending. All elements of maximal barrier and sterile technique were utilized. IMPRESSION: 1. Successful ultrasound guided biopsy left parotid mass.
[2020-12-31 11:09] VITALS: BP 125/69; PULSE 70
== END 2020-12-31 11:40 | disposition home or self-care (01) ==
LOC: RADPROMAIN 09:20
PROVIDERS: ATTEND Internal Medicine Critical Care Medicine
DX: D11.0 Benign neoplasm of parotid gland (principal)
CPT/HCPCS: 42400; 76942; 82947; 88305

== ENCOUNTER → 2021-05-17 | Outpatient (CLI) | payer MEDICARE, OTHER ==
--- NOTE | 2021-05-18 05:19 | MR ---
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 There is a 5.6 x 2.9 x 1.8 cm mass involving the posterior aspect left parotid gland. Mass is not sig nificantly changed in size compared to old exam. Contrast images do not show any significant enhancem ent on the axial images but there is enhancement on the coronal images. There is oval-shaped 12 x 8 6 mm mass in the posterior right parotid gland is probably a lymph node. There is no evidence of phary ngeal mass. Cervical vertebra appear intact. IMPRESSION: Large left parotid mass not changed compared to old exam. Small posterior right parotid mass could be a lymph node and not changed.
== END | disposition home or self-care (01) ==
LOC: RADMRIMAIN 14:52
PROVIDERS: ATTEND Otolaryngology
DX: R22.1 Localized swelling, mass and lump, neck (principal)
CPT/HCPCS: 70543; A9585

== ENCOUNTER → 2021-05-29 | Outpatient (CLI) | payer MEDICARE, OTHER ==
[2021-05-29 19:12] LABS: ALT 12 U/L (8-44); AST 16 U/L (13-35); African American GFR (CKD) 48.1 (60.0-200.0); Albumin 4.2 g/dL (3.8-4.9); Albumin/Globulin Ratio 1.91 (1.60-3.17); Alkaline Phosphatase 78 U/L (41-126); BUN/Creat Ratio 29.58 Ratio (12.00-20.00); Blood Urea Nitrogen 35.5 mg/dL (9.0-27.0); Calcium 9.8 mg/dL (8.7-10.3); Carbon Dioxide 24.1 mmol/L (20.0-27.5); Chloride 105 mmol/L (96-109); Chol/HDL Ratio 1.65 Ratio; Globulin 2.2 g/dL (1.6-3.3); Glucose 87 mg/dL (70-110); LDL Cholesterol,Calculated 39.2 mg/dL (0.0-131.0); Non-African American GFR(CKD) 41.5 (60.0-200.0); Potassium 4.3 mmol/L (3.5-5.5); Sodium 141 mmol/L (135-145); Total Protein 6.4 g/dL (6.2-8.2); VLDL Calculation 11.38 mg/dL (5.00-40.00)
== END | disposition home or self-care (01) ==
LOC: LABWHC1 10:29
PROVIDERS: ATTEND Internal Medicine Interventional Cardiology
DX: E78.2 Mixed hyperlipidemia (principal)
CPT/HCPCS: 36415; 80053; 80061

== ENCOUNTER 2021-09-19 17:38 | Emergency (ER) | payer MEDICARE, OTHER ==
[2021-09-19 17:55] VITALS: TEMP 98.2
[2021-09-19 19:58] LABS: Basophils % (A) 1 %; Eosinophils # (A) 0.2 k/uL (0-0.7); Eosinophils % (A) 5 %; HCT 31.4 % (34.0-46.0); HGB 10.6 gm/dL (11.4-16.0); Lymphocytes % (A) 22 %; MCHC 33.7 g/dL (31.0-37.0); MCV 95.1 fL (80.0-100.0); Mean Platelet Volume 8.9; Monocytes # (A) 0.3 k/uL (0-1.0); Monocytes % (A) 6 %; Neutrophils # (A) 3.1 k/uL (1.3-7.7); Neutrophils % (A) 65 %; Platelet Count 109 k/uL (150-450); RDW 13.5 % (11.5-15.5); WBC 4.8 k/uL (3.8-10.6)
[2021-09-19 20:10] LABS: Albumin 4.2 g/dL (3.5-5.0); Calcium 9.4 mg/dL (8.4-10.2); Potassium 4.5 mmol/L (3.5-5.1); Total Bilirubin 0.6 mg/dL (0.2-1.3); Total Protein 7.1 g/dL (6.3-8.2)
--- NOTE | 2021-09-19 20:26 | ED ---
Skin/Abscess/FB HPI - General Chief complaint: Skin/Abscess/Foreign Body Stated complaint: Sore on R leg Time Seen by Provider: 09/19/21 18:44 Source: patient, RN notes reviewed Mode of arrival: ambulatory Limitations: no limitations - History of Present Illness Initial comments: This is a pleasant 86-year-old female presents with open wounds to the anterior aspect of her right lower leg. Patient states she has a history of previous surgery to the right lower leg, she has chronic edema and poor circulation. Patient states she occasionally will get blisters. However she states this time the blisters seem to break open and she inadvertently placed compression stockings over. She now notices some purulent drainage from the wounds. She denies any proms in the foot approximately. She is describing a burning sensation. No calf pain. Is able to evaluate. States she feels well otherwise. No headache, no fever or chills, no changes in vision or hearing, no sore throat or difficulty with speech, no neck pain, no chest pain or shortness of breath, no abdominal pain, no nausea or vomiting, no changes in urination or bowel movements, no numbness or tingling, - Related Data Home Medications Medication Instructions Recorded Confirmed Apixaban [Eliquis] 2.5 mg PO BID 10/10/18 12/31/20 Ascorbic Acid [Vitamin C] 1,000 mg PO DAILY 10/10/18 12/27/20 Atorvastatin [Lipitor] 40 mg PO Q48H 10/10/18 12/27/20 Cetirizine HCl [Zyrtec] 10 mg PO DAILY PRN 10/10/18 12/27/20 Cholecalciferol [Vitamin D3 (25 1,000 unit PO DAILY 10/10/18 12/27/20 Mcg = 1000 Iu)] Fosinopril/Hydrochlorothiazide 1 tab PO DAILY 10/10/18 12/27/20 [Monopril HCT 10-12.5 mg] Latanoprost/Pf [Latanoprost 0.005% 1 drop RIGHT EYE HS 10/10/18 12/27/20 Eye Drop] Metoprolol Tartrate [Lopressor] 50 mg PO DAILY 10/10/18 12/27/20 Multivitamins, Thera [Multivitamin 1 tab PO DAILY 10/10/18 12/27/20 (formulary)] metFORMIN HCL [metFORMIN HCL ER] 750 mg PO BID 10/10/18 12/27/20 traMADol HCL [Ultram] 50 mg PO Q6HR PRN 10/10/18 12/27/20 Calcium (Unknown Dose) 1 tab PO DAILY 01/17/20 12/27/20 Diphenoxylate HCl/Atropine 1 - 2 tab PO QID PRN 01/17/20 12/27/20 [Lomotil 2.5-0.025 mg Tablet] Ferrous Sulfate [Iron] 325 mg PO DAILY 01/17/20 12/27/20 Furosemide [Lasix] 20 mg PO DAILY PRN 01/17/20 12/27/20 Zolpidem [Ambien] 10 mg PO HS PRN 01/17/20 12/27/20 Donepezil [Aricept] 10 mg PO HS 12/27/20 12/27/20 Previous Rx's Medication Instructions Recorded Cephalexin [Keflex] 500 mg PO Q6HR #40 cap 09/19/21 Allergies Allergy/AdvReac Type Severity Reaction Status Date / Time Paper Tape Allergy Redness/Itc Uncoded 09/19/21 17:55 erick Review of Systems ROS Statement: Those systems with pertinent positive or pertinent negative responses have been documented in the HPI. ROS Other: All systems not noted in ROS Statement are negative. Past Medical History Past Medical History: Atrial Fibrillation, COPD, Diabetes Mellitus, Hyperlipidemia, Hypertension, Memory Impairment, Osteoarthritis (OA) Additional Past Medical History / Comment(s): possible Hiatal Hernia, left neck mass History of Any Multi-Drug Resistant Organisms: None Reported Past Surgical History: Cardiac Valve Replacement, Cholecystectomy, Orthopedic Surgery Additional Past Surgical History / Comment(s): Right knee surgery X5, Hammer Toe surgery, left knee arthroscopy Past Anesthesia/Blood Transfusion Reactions: Previous Problems w/ Anesthesia Additional Past Anesthesia/Blood Transfusion Reaction / Comment(s): Woke up during last knee surgery. Past Psychological History: No Psychological Hx Reported Smoking Status: Current every day smoker Past Alcohol Use History: Occasional Past Drug Use History: None Reported - Past Family History Father Family Medical History: Cancer Additional Family Medical History / Comment(s): Prostate Cancer. Brother(s) Additional Family Medical History / Comment(s): Blood clot from surgery. General Exam Limitations: no limitations General appearance: alert, in no apparent distress Head exam: Present: atraumatic, normocephalic, normal inspection Eye exam: Present: normal appearance, PERRL, EOMI. Absent: scleral icterus, conjunctival injection, periorbital swelling ENT exam: Present: normal exam, mucous membranes moist Neck exam: Present: normal inspection. Absent: tenderness, meningismus, lymphadenopathy Respiratory exam: Present: normal lung sounds bilaterally. Absent: respiratory distress, wheezes, rales, rhonchi, stridor Cardiovascular Exam: Present: regular rate, normal rhythm, normal heart sounds. Absent: systolic murmur, diastolic murmur, rubs, gallop, clicks GI/Abdominal exam: Present: soft, normal bowel sounds. Absent: distended, tenderness, guarding, rebound, rigid Extremities exam: Present: full ROM, normal capillary refill, other (Patient has chronic appearing skin changes to both lower extremities with chronic dustier erythema. No calor a purulent drainage noted from open ulcerations to the anterior aspect of the right lower leg. Good involvement, pulses are intact, capillary refill is less than 2 seconds.). Absent: tenderness, pedal edema, joint swelling, calf tenderness Back exam: Present: normal inspection Neurological exam: Present: alert, oriented X3, CN II-XII intact Psychiatric exam: Present: normal affect, normal mood Skin exam: Present: warm, dry, intact, normal color. Absent: rash Course Vital Signs 09/19/21 09/19/21 17:51 20:00 Temperature 98.2 F Pulse Rate 74 78 Respiratory 16 18 Rate Blood Pressure 125/53 125/61 O2 Sat by Pulse 96 98 Oximetry Medical Decision Making - Medical Decision Making We'll treat the patient with IV antibiotics and for Ancef. Initial laboratory work was ordered by the triage nurse. We'll add on a venous Doppler, however this does not appear to be classically consistent with a DVT. No evidence of arterial insufficiency. Full range of motion all joints. Does not appear to be consistent with Significant cellulitis. However early cellulitis is possible. The case was discussed in detail with ED attending physician. Presentation, findings, treatment plan discussed in detail. Dr. Holt Patient was told to return to the ER for any signs or symptoms worsen. Told to return immediately if any other problems arise. All questions answered. Treatment plan discussed. Patient in agreement Every effort has been made to ensure accuracy of this dictation. However, due to the limitations of electronic medical records and dictation devices, errors in charting still occur. - Lab Data Result diagrams: 09/19/21 19:44 09/19/21 19:44 Lab Results 09/19/21 09/19/21 09/19/21 Range/Units 19:44 19:44 19:44 WBC 4.8 (3.8-10.6) k/uL RBC 3.30 L (3.80-5.40) m/uL Hgb 10.6 L (11.4-16.0) gm/dL Hct 31.4 L (34.0-46.0) % MCV 95.1 (80.0-100.0) fL MCH 32.0 (25.0-35.0) pg MCHC 33.7 (31.0-37.0) g/dL RDW 13.5 (11.5-15.5) % Plt Count 109 L (150-450) k/uL MPV 8.9 Neutrophils % 65 % Lymphocytes % 22 % Monocytes % 6 % Eosinophils % 5 % Basophils % 1 % Neutrophils # 3.1 (1.3-7.7) k/uL Lymphocytes # 1.0 (1.0-4.8) k/uL Monocytes # 0.3 (0-1.0) k/uL Eosinophils # 0.2 (0-0.7) k/uL Basophils # 0.0 (0-0.2) k/uL Sodium 138 (137-145) mmol/L Potassium 4.5 (3.5-5.1) mmol/L Chloride 104 (98-107) mmol/L Carbon Dioxide 27 (22-30) mmol/L Anion Gap 7 mmol/L BUN 33 H (7-17) mg/dL Creatinine 1.24 H (0.52-1.04) mg/dL Est GFR (CKD-EPI)AfAm 46 (>60 ml/min/1.73 sqM) Est GFR (CKD-EPI)NonAf 40 (>60 ml/min/1.73 sqM) Glucose 119 H (74-99) mg/dL Plasma Lactic Acid Nino 1.0 (0.7-2.0) mmol/L Calcium 9.4 (8.4-10.2) mg/dL Total Bilirubin 0.6 (0.2-1.3) mg/dL AST 25 (14-36) U/L ALT 15 (4-34) U/L Alkaline Phosphatase 102 (38-126) U/L Total Protein 7.1 (6.3-8.2) g/dL Albumin 4.2 (3.5-5.0) g/dL Disposition Clinical Impression: Cellulitis of right lower extremity without foot Disposition: HOME SELF-CARE Condition: Stable Instructions (If sedation given, give patient instructions): Cellulitis (ED) Additional Instructions: Take the antibiotics as directed. Change the dressings daily. Wash with soap and water. Apply antibiotic ointment such as Neosporin or triple antibiotic ointment. Keep covered with sterile gauze. Follow-up with your regular doctor on Thursday. Follow-up with your regular physician as directed. Return to the ER immediately if any symptoms worsen, new symptoms arise, or any other problems develop. Is patient prescribed a controlled substance at d/c from ED?: No Referrals: George Quesada DO [Primary Care Provider] - 09/23/21 Time of Disposition: 21:42
--- NOTE | 2021-09-19 21:30 | US ---
EXAMINATION TYPE: US venous doppler duplex LE RT DATE OF EXAM: 09/19/2021 8:55 PM COMPARISON: NONE CLINICAL HISTORY: Right lower extremity redness/swelling. Right lower extremity blisters SIDE PERFORMED: Right TECHNIQUE: The lower extremity deep venous system is examined utilizing real time linear array sonog coco with graded compression, doppler sonography and color-flow sonography. VESSELS IMAGED: Common Femoral Vein Deep Femoral Vein Greater Saphenous Vein * Femoral Vein Popliteal Vein Small Saphenous Vein * Proximal Calf Veins (* superficial vessels) Right Leg: Negative for DVT. Edematous tissue noted. IMPRESSION: Grayscale, color doppler, spectral doppler imaging performed of the deep veins of the lo wer extremities. There is normal flow, compressibility, vascular waveforms.
[2021-09-19 21:36] VITALS: BP 125/61; PULSE 78; RESP 18
== END 2021-09-19 22:00 | disposition home or self-care (01) ==
LOC: EC 17:38
DX: M79.89 Other specified soft tissue disorders (principal); L03.115 Cellulitis of right lower limb; F17.200 Nicotine dependence, unspecified, uncomplicated; I10 Essential (primary) hypertension; I48.91 Unspecified atrial fibrillation; E11.9 Type 2 diabetes mellitus without complications; E78.5 Hyperlipidemia, unspecified; J44.9 Chronic obstructive pulmonary disease, unspecified; M19.90 Unspecified osteoarthritis, unspecified site; Z79.01 Long term (current) use of anticoagulants; Z91.09 Other allergy status, other than to drugs and biological substances; Z79.899 Other long term (current) drug therapy; Z79.84 Long term (current) use of oral hypoglycemic drugs
CPT/HCPCS: 99284 ×2; 96365 ×2; 36415; 80053; 83605; 85025; 87070; 87205; 87077; 87186; 93971; J0690

== ENCOUNTER → 2021-12-24 | Outpatient (CLI) | payer MEDICARE, OTHER ==
[2021-12-24 18:51] LABS: ALT 9 U/L (8-44); AST 18 U/L (13-35); African American GFR (CKD) 45.3 (60.0-200.0); Albumin 4.1 g/dL (3.8-4.9); Albumin/Globulin Ratio 1.48 (1.60-3.17); Alkaline Phosphatase 89 U/L (41-126); BUN/Creat Ratio 27.78 Ratio (12.00-20.00); Calcium 9.6 mg/dL (8.7-10.3); Carbon Dioxide 24.7 mmol/L (20.0-27.5); Chloride 103 mmol/L (96-109); Chol/HDL Ratio 1.99 Ratio; Globulin 2.8 g/dL (1.6-3.3); Glucose 84 mg/dL (70-110); LDL Cholesterol,Calculated 66.8 mg/dL (0.0-131.0); Non-African American GFR(CKD) 39.1 (60.0-200.0); Potassium 4.3 mmol/L (3.5-5.5); Sodium 141 mmol/L (135-145); Total Protein 6.9 g/dL (6.2-8.2); VLDL Calculation 12.76 mg/dL (5.00-40.00)
[2021-12-24 19:20] LABS: Basophils # (A) 0.04 X 10*3/uL (0.00-0.10); Basophils % (A) 0.7 %; Eosinophils # (A) 0.15 X 10*3/uL (0.04-0.35); Eosinophils % (A) 2.6 %; HGB 9.7 g/dL (12.0-15.0); Immature Grans, Automated 0.3 %; Lymphocytes # (A) 1.02 X 10*3/uL (0.90-5.00); Lymphocytes % (A) 17.6 %; MCH 29.4 pg (27.0-32.0); MCHC 31.3 g/dL (32.0-37.0); MCV 93.9 fL (80.0-97.0); Mean Platelet Volume 11.5 fL (9.5-12.2); Monocytes # (A) 0.59 X 10*3/uL (0.20-1.00); Monocytes % (A) 10.2 %; NRBC Per 100 WBC 0 /100 WBCS (0.0-0.0); Neutrophils # (A) 3.98 X 10*3/uL (1.80-7.70); Neutrophils % (A) 68.6 %; Platelet Count 115 X 10*3/uL (140-440); RDW 14.2 % (11.5-14.5)
== END | disposition home or self-care (01) ==
LOC: LABWHC1 11:01
PROVIDERS: ATTEND Internal Medicine Critical Care Medicine
DX: G47.00 Insomnia, unspecified (principal); E78.5 Hyperlipidemia, unspecified; E11.9 Type 2 diabetes mellitus without complications; R53.83 Other fatigue
CPT/HCPCS: 36415; 80053; 80061; 82306; 83036; 84439; 84443; 85025

== ENCOUNTER → 2022-02-22 | Outpatient (CLI) | payer MEDICARE, OTHER ==
--- NOTE | 2022-02-24 09:56 | MR ---
EXAMINATION TYPE: MR neck wo/w con DATE OF EXAM: 02/22/2022 COMPARISON: 05/17/2021 HISTORY: LEFT PAROTID MASS CONTRAST: Standard multiplanar, multisequence MRI departmental protocol images were obtained without contrast a nd with 9 mL intravenous Gadavist gadolinium contrast. FINDINGS: There is minimal interval enlargement of solid mass left parotid lobe posteriorly craniocaudal measur ement of 5.9 cm x 2.4 x 2.7 cm versus prior measurement of 5.6 x 2.9 x 1.8 cm. No additional left-floresita ed masses are seen. No evidence for inflammatory change. The right parotid gland demonstrates oval-shaped mass posteriorly measuring of 1.4 x 0.8 cm versus 1. 2 x 8 mm previously. And demonstrates minimal enlargement as well. This could reflect an additional m ass versus lymph node. No additional right-sided parotid lesions are seen. Submandibular gland on the left appear stable and unremarkable. Right-sided submandibular and appears to have been removed. IMPRESSION: 1. Slight enlargement and solid left-sided parotid mass. 2. Slight enlargement and solid lesion right parotid gland which could reflect a small lymph node.
== END | disposition home or self-care (01) ==
LOC: RADMRIMAIN 11:03
PROVIDERS: ATTEND Otolaryngology
DX: R22.1 Localized swelling, mass and lump, neck (principal)
CPT/HCPCS: 70543; A9585

== ENCOUNTER → 2022-04-10 | Outpatient (CLI) | payer MEDICARE, OTHER ==
[2022-04-10 22:32] LABS: Basophils # (A) 0.05 X 10*3/uL (0.00-0.10); Basophils % (A) 0.9 %; Eosinophils # (A) 0.13 X 10*3/uL (0.04-0.35); Eosinophils % (A) 2.4 %; HCT 29.4 % (37.2-46.3); HGB 9.1 g/dL (12.0-15.0); Immature Grans, Automated 0.4 %; Lymphocytes # (A) 0.97 X 10*3/uL (0.90-5.00); Lymphocytes % (A) 17.6 %; MCH 28.3 pg (27.0-32.0); MCV 91.6 fL (80.0-97.0); Mean Platelet Volume 11.3 fL (9.5-12.2); Monocytes # (A) 0.45 X 10*3/uL (0.20-1.00); Monocytes % (A) 8.2 %; NRBC Per 100 WBC 0 /100 WBCS (0.0-0.0); Neutrophils # (A) 3.88 X 10*3/uL (1.80-7.70); Neutrophils % (A) 70.5 %; Platelet Count 124 X 10*3/uL (140-440); RBC 3.21 X 10*6/uL (4.10-5.20); RDW 14.3 % (11.5-14.5)
== END | disposition home or self-care (01) ==
LOC: LABWHC1 14:54
PROVIDERS: ATTEND Internal Medicine Critical Care Medicine
DX: D64.9 Anemia, unspecified (principal)
CPT/HCPCS: 36415; 85025

== ENCOUNTER → 2022-10-02 | Outpatient (CLI) | payer MEDICARE | END | disposition home or self-care (01) | LOC: LABWHC1 15:50 | PROVIDERS: ATTEND Nurse Practitioner Family | DX: Z53.9 Procedure and treatment not carried out, unspecified reason (principal) ==

== ENCOUNTER → 2022-10-15 | Outpatient (CLI) | payer MEDICARE ==
--- NOTE | 2022-10-15 15:26 | MR ---
EXAMINATION TYPE: MR neck wo/w con DATE OF EXAM: 10/15/2022 COMPARISON: MR neck 02/22/2022, CT soft tissue neck 12/26/2020. HISTORY: LEFT PAROTID MASS CONTRAST: Standard multiplanar, multisequence MRI departmental protocol images were obtained without contrast and with 9 mL intravenous Gadavist gadolinium contrast. FINDINGS: Marginal decrease in size of solid mass within the left parotid gland posteriorly measuring 2.5 x 2.1 cm, previously 2.5 x 2.4 cm. No additional left-sided masses are seen. No evidence for inf lammatory change. The right parotid gland demonstrates oval-shaped mass posteriorly measuring 1.3 x 0.6 cm, previously 1.4 x 0.7 cm. This again could reflect an additional mass versus lymph node. No additional right-side d parotid lesions are seen. Submandibular gland on the left appear stable and unremarkable. Right-sided submandibular and appears to have been removed. IMPRESSION: 1. Marginal decrease in size of solid left-sided parotid mass from prior examination. 2. Stable to marginally decreased in size of solid lesion right parotid gland which could reflect a s mall lymph node.
== END | disposition home or self-care (01) ==
LOC: RADMRIMAIN 13:32
PROVIDERS: ATTEND Otolaryngology
DX: K11.8 Other diseases of salivary glands (principal); R59.9 Enlarged lymph nodes, unspecified
CPT/HCPCS: 70543; A9585

== ENCOUNTER → 2023-01-15 | Outpatient (CLI) | payer MEDICARE ==
[2023-01-16 02:35] LABS: ALT 9 U/L (8-44); AST 21 U/L (13-35); Albumin 4.4 d/dL (3.8-4.9); Albumin/Globulin Ratio 1.76 Ratio (1.60-3.17); Alkaline Phosphatase 80 U/L (41-126); BUN/Creat Ratio 26.73 Ratio (12.00-20.00); Blood Urea Nitrogen 40.1 mg/dL (9.0-27.0); Calcium 9.9 mg/dL (8.7-10.3); Carbon Dioxide 28.2 mmol/L (21.6-31.8); Chloride 96 mmol/L (96-109); Globulin 2.5 d/dL (1.6-3.3); Glucose 85 mg/dL (70-110); Sodium 136 mmol/L (135-145); Total Bilirubin 0.5 mg/dL (0.3-1.2); Total Protein 6.9 d/dL (6.2-8.2)
== END | disposition home or self-care (01) ==
LOC: LABWHC1 14:55
PROVIDERS: ATTEND Internal Medicine Critical Care Medicine
DX: E87.6 Hypokalemia (principal)
CPT/HCPCS: 36415; 80053

== ENCOUNTER 2023-01-23 14:59 | Inpatient (IN) | payer MEDICARE ==
[~2023-01-23 14:59] MED LIST changes: -ALPRAZolam 0.25 MG TAB PO PRN; -ALPRAZolam 0.5 MG TAB PO PRN; -ASPIRIN 325 MG TAB PO STA; -ATORVASTATIN 80 MG TAB PO STA; +HUMAN PROTHROMBIN COMPLX 500 UNIT/16 ML VIAL IV ONE; -NITROGLYCERIN SL TABS 0.4 MG TAB SUBLINGUAL PRN; -SODIUM CHLORIDE 0.9% 1,000 ML in EMPTY BAG 1 BAG IV ONE
[2023-01-23] MEDS ORDERED: MORPHINE SULFATE 2 MG/ML SYRINGE IV STA (15:12)
[2023-01-23] MEDS ORDERED: SODIUM CHLORIDE 0.9% 1,000 ML IV ONE (15:12)
[2023-01-23 16:11] LABS: Basophils % (A) 0 %; Eosinophils # (A) 0.1 k/uL (0-0.7); Eosinophils % (A) 2 %; HCT 27.8 % (34.0-46.0); HGB 9.5 gm/dL (11.4-16.0); Lymphocytes # (A) 0.9 k/uL (1.0-4.8); Lymphocytes % (A) 14 %; MCH 30.5 pg (25.0-35.0); MCHC 34.2 g/dL (31.0-37.0); MCV 89.2 fL (80.0-100.0); Mean Platelet Volume 8.9; Monocytes # (A) 0.4 k/uL (0-1.0); Monocytes % (A) 6 %; Neutrophils # (A) 4.8 k/uL (1.3-7.7); Neutrophils % (A) 77 %; Platelet Count 106 k/uL (150-450); RBC 3.12 m/uL (3.80-5.40); RDW 15.1 % (11.5-15.5); WBC 6.3 k/uL (3.8-10.6)
[2023-01-23 16:24] LABS: ALT 18 U/L (4-34); AST 28 U/L (14-36); African American GFR (CKD) 43 (>60 ml/min/1.73 sqM); Albumin 3.9 g/dL (3.5-5.0); Alkaline Phosphatase 89 U/L (38-126); Anion Gap 8 mmol/L; Blood Urea Nitrogen 41 mg/dL (7-17); Calcium 9.1 mg/dL (8.4-10.2); Carbon Dioxide 27 mmol/L (22-30); Chloride 99 mmol/L (98-107); Glucose 115 mg/dL (74-99); Non-African American GFR(CKD) 38 (>60 ml/min/1.73 sqM); Potassium 4.1 mmol/L (3.5-5.1); Sodium 134 mmol/L (137-145); Total Bilirubin 0.7 mg/dL (0.2-1.3); Total Protein 6.9 g/dL (6.3-8.2)
[2023-01-23 16:25] LABS: Partial Thromboplastin Time 24.6 sec (22.0-30.0); Prothrombin Time 10.2 sec (9.0-12.0)
--- NOTE | 2023-01-23 16:30 | CT ---
EXAMINATION TYPE: CT facial bones wo con DATE OF EXAM: 01/23/2023 COMPARISON: None HISTORY: 87-year-old female with pain after fall TECHNIQUE: Contiguous axial scanning of the facial bones without IV contrast. Coronal and sagittal re constructions performed. CT DLP: 470.4 mGycm Automated exposure control for dose reduction was used. FINDINGS: There are dilated bilateral superior ophthalmic veins. This seems to be a chronic finding present on 02/22/2022 MRI as well. However, clearly seen on 05/17/2021. Postsurgical change likely related to prior and reconstruction of the left inferior orbital rim. The mandible and TMJs as well as the zygomatic arches and pterygoid plates appear intact. No acute facial bone fracture seen. Rightward nasal septal deviation. 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 We note prior MRIs following this lesion. Ongoing surveillance can be performed. IMPRESSION: 1. POSTSURGICAL CHANGES LIKELY RELATED TO PRIOR RECONSTRUCTION OF THE LEFT INFRAORBITAL RIM. NO ACUTE FACIAL BONE FRACTURE SEEN. 2. DILATED BILATERAL SUPERIOR OPHTHALMIC VEINS. THIS APPEARS TO BE A CHRONIC FINDING PRESENT BACK TO 02/22/2022. CORRELATE CLINICALLY FOR POSSIBILITIES INCLUDING INDIRECT CAROTID CAVERNOUS FISTULA AND MACEDO PERIOR OPHTHALMIC VEIN VARIX DEPENDING ON SYMPTOMATOLOGY.
--- NOTE | 2023-01-23 16:43 | CT ---
EXAMINATION TYPE: CT CervThorLumbar spine wo con DATE OF EXAM: 01/23/2023 COMPARISON: CT neck 12/26/2020 HISTORY: 87-year-old female with pain from fall TECHNIQUE: Contiguous axial scanning of the cervical, thoracic, and lumbar spine without IV contrast. Coronal and sagittal reconstructions performed. CT DLP: 1661.8 mGycm Automated exposure control for dose reduction was used. FINDINGS: Cervical spine: Known large inferior left parotid mass measuring at least 4.5 cm can continue to be followed. No craniocervical junction unremarkable, predental space widening, or prevertebral soft tissue swelli ng. Posterior disc bulges and ligamentum flavum thickening especially C4-C7 levels may contribute to mode rate spinal canal stenosis suggests at C5-C6. Alignment is maintained. Scattered mild to moderate spo ndylotic change. No acute fracture seen of the cervical spine. Chronic inferior endplate deformity T1. Moderate to severe left and moderate right neural foraminal stenosis at C5-C6. Thoracic spine: Extensive dish mid and lower thoracic spine. No acute fracture seen. Alignment is maintained. No prevertebral or paravertebral soft tissue abnormality seen. No evident canal compromise by CT. Lumbar spine: There is advanced hypertrophic facet arthropathy throughout the lumbar spine along with Baastrup's di sease. Degenerative grade 1 anterolisthesis L3-L4 and L4-L5. Disc bulges at both of these levels may contrib asif to moderate to severe focal spinal canal stenosis, particularly at L3-L4. Moderate degenerative disc disease throughout the lumbar spine. Vertebral compression deformity of L5 with 60% overall height loss. The L5 vertebral body shows no significant surrounding soft tissue swelling. On the left, changes result in severe neuroforaminal stenosis at L2-L3 and L3-L4 and moderate at L1-L 2. On the right, changes moderate to severe neuroforaminal stenosis at L4-L5 and L3-L4. Diffuse osteopenia. IMPRESSION: 1. CERVICAL SPINE: Known inferior left parotid mass for which ongoing surveillance can be performed. [id number] spondylotic change particularly at C5-C6 with moderate spinal canal stenosis. Modera te to severe left and moderate right neural foraminal stenosis here. No acute fracture or malalignmen t. 2. 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 No vertebral compression collapse or malalignment. 3. Lumbar spine: L5 vertebral compression deformity with 60% height loss suspected to be chronic give n the lack of surrounding soft tissue swelling. Clinically correlate. Advanced hypertrophic facet art hropathy and Baastrup's disease with degenerative grade 1 anterolisthesis L3-L4 and L4-L5. Possibly m oderate to severe focal spinal canal stenosis at L3-L4. Variable neural foraminal stenoses as outline d above.
--- NOTE | 2023-01-23 16:48 | CT ---
EXAMINATION TYPE: CT pelvis wo con DATE OF EXAM: 01/23/2023 COMPARISON: None HISTORY: 87-year-old female right hip pain from fall TECHNIQUE: Contiguous axial scanning of the right hip without IV contrast. Coronal and sagittal recon structions performed. CT DLP: 727.4 mGycm Automated exposure control for dose reduction was used. FINDINGS: There is diffuse osteopenia. Lumbar spine reported separately. There appears to be a left L5 hemisacr alization. Degenerative change of the bilateral SI joints. Moderate bilateral hip degenerative change. Sigmoid diverticulosis. Mild pelvic free fluid. There are nondisplaced fractures of the right superior and inferior pubic rami with some associated a nterior extraperitoneal right pelvic hematoma. Additional intramuscular hematoma thickening the right obturator internus muscle. There is a comminuted intertrochanteric fracture of the proximal right femur. Overall nondisplaced fr acture. Surrounding soft tissue swelling and some hematoma formation at the fracture site. The IT fra cture shows no evident lateral wall disruption. IMPRESSION: 1. COMMINUTED, NONDISPLACED IT FRACTURE PROXIMAL RIGHT FEMUR. NO LATERAL WALL DISRUPTION. 2. NONDISPLACED FRACTURES RIGHT SUPERIOR AND RIGHT INFERIOR PUBIC RAMI WITH SOME ADJACENT SOFT TISSUE HEMATOMA WITHIN THE ANTERIOR PELVIS AND RIGHT PELVIC SIDEWALL. 3. UNDERLYING MODERATE BILATERAL HIP OA.
[2023-01-23] MEDS ORDERED: Kcentra PER PHARMACY 1 EACH MISC MISCELLANE PRN (16:55)
[2023-01-23] MEDS ORDERED: MORPHINE SULFATE 2 MG/ML SYRINGE IVP STA (17:09)
[2023-01-23] MEDS ORDERED: HUMAN PROTHROMBIN COMPLX IV ONE (17:15)
--- NOTE | 2023-01-23 18:06 | XR ---
EXAMINATION TYPE: XR femur RT, XR knee limited RT DATE OF EXAM: 01/23/2023 5:34 PM INDICATION: Patient age:Female; 87 years old; Reason for study: fall, pain; COMPARISON: None TECHNIQUE: The right femur was examined in Frontal and lateral projections. The right knee was evaluated in frontal and lateral images. FINDINGS: Post arthroplasty changes to the right knee. Periprosthetic lucency around the femoral benjamin m. The tibial component appears intact. No evidence of acute osseous pathology. Multiple skin calcifi c patient's are present. IMPRESSION: 1. No acute osseous pathology. 2. Post arthroplasty changes to the right knee with Periprosthetic lucency around the femoral stem c orrelate for loosening.
--- NOTE | 2023-01-23 18:10 | XR ---
EXAMINATION TYPE: XR chest 1V portable DATE OF EXAM: 01/23/2023 5:34 PM COMPARISON: Chest radiographs from 11/24/2017 TECHNIQUE: XR chest 1V portable Frontal view of the chest. CLINICAL INDICATION:Female, 87 years old with history of fall, pain; FINDINGS: Lungs/Pleura: Prominent interstitial lung markings are seen scattered throughout the lungs. No eviden ce of focal consolidation, pneumothorax or pleural effusion. Pulmonary vascularity: Unremarkable. Heart/mediastinum: Cardiomediastinal silhouette is enlarged and stable. Atherosclerotic calcificatio ns are seen in the aorta. Musculoskeletal: Degenerative changes of the shoulder joints. IMPRESSION: Chronic changes without acute pulmonary process. No significant change from prior.
--- NOTE | 2023-01-23 18:21 | CT ---
EXAMINATION TYPE: CT brain wo con CT DLP: 1163.4 mGycm, Automated exposure control for dose reduction was used. DATE OF EXAM: 01/23/2023 5:42 PM COMPARISON: None. CLINICAL INDICATION:Female, 87 years old with history of fall, fall TECHNIQUE: Brain: Axial CT images of the brain were obtained with coronal and sagittal reformats created and rev iewed. Contrast used: None. Oral contrast used: None. FINDINGS: Brain: Extra-axial spaces: No abnormal extra-axial fluid collections. Ventricular system: Dilatation in proportion to cerebral atrophy. Cerebral parenchyma: Cerebral atrophy. No acute intraparenchymal hemorrhage or mass effect. The gonzalez -white junction is well differentiated. Scattered hypoattenuating areas are seen within the white mat ter. Cerebellum: Unremarkable. Mass effect: No evidence of midline shift. Intracranial vasculature: Atherosclerotic calcifications of the intracranial vessels. Soft tissues: Suspected remote left inferior orbital wall injury with calcifications on today's exam. Calvarium/osseous structures: No depressed skull fracture. Paranasal sinuses and mastoid air cells: Mild scattered paranasal sinus disease. Visualized orbits: Bilateral aphakia IMPRESSION: 1. No acute intracranial process. 2. Nonspecific white matter changes, likely secondary to chronic small vessel ischemic disease.
--- NOTE | 2023-01-23 18:44 | ED ---
General Adult HPI - General Chief complaint: Fall Stated complaint: fall Time Seen by Provider: 01/23/23 15:04 Source: patient, EMS, RN notes reviewed, old records reviewed Mode of arrival: EMS Limitations: no limitations - History of Present Illness Initial comments: Patient is an 87-year-old female presents emergency Department complaining of a fall. Patient is a history of atrial fibrillation on Eliquis, IVs, COPD, hypertension, chronic right leg wound and right knee pain. Presents after she bent down to cleanup spilled coffee at home which she lost her balance and fell backwards onto her right side and her back. Currently complaining mostly of right hip pain. Mild low back pain. Denies any acute sensory deficits. Denies any urinary incontinence or retention. Denies any chest pain, shortness of breath. Has no acute lites at this time. Denies losing consciousness. He has been compliant with her blood thinner. Does have prior interaction with OA in the past who is on-call. - Related Data Home Medications Medication Instructions Recorded Confirmed Apixaban [Eliquis] 2.5 mg PO BID 10/10/18 12/31/20 Ascorbic Acid [Vitamin C] 1,000 mg PO DAILY 10/10/18 12/27/20 Atorvastatin [Lipitor] 40 mg PO Q48H 10/10/18 12/27/20 Cholecalciferol [Vitamin D3 (25 1,000 unit PO DAILY 10/10/18 12/27/20 Mcg = 1000 Iu)] Fosinopril/Hydrochlorothiazide 1 tab PO DAILY 10/10/18 12/27/20 [Monopril HCT 10-12.5 mg] Latanoprost/Pf [Latanoprost 0.005% 1 drop RIGHT EYE HS 10/10/18 12/27/20 Eye Drop] Metoprolol Tartrate [Lopressor] 50 mg PO DAILY 10/10/18 12/27/20 Multivitamins, Thera [Multivitamin 1 tab PO DAILY 10/10/18 12/27/20 (formulary)] metFORMIN HCL [metFORMIN HCL ER] 750 mg PO BID 10/10/18 12/27/20 traMADol HCL [Ultram] 50 mg PO Q6HR PRN 10/10/18 12/27/20 Diphenoxylate HCl/Atropine 1 - 2 tab PO QID PRN 01/17/20 12/27/20 [Lomotil 2.5-0.025 mg Tablet] Ferrous Sulfate [Iron] 325 mg PO DAILY 01/17/20 12/27/20 Furosemide [Lasix] 20 mg PO DAILY PRN 01/17/20 12/27/20 Zolpidem [Ambien] 10 mg PO HS PRN 01/17/20 12/27/20 Donepezil [Aricept] 10 mg PO HS 12/27/20 12/27/20 Calcium 1000mg 1 tab PO DAILY 01/23/23 01/23/23 Co Q-10 100mg 1 tab PO DAILY 01/23/23 01/23/23 Gabapentin 300 mg PO TID 01/23/23 01/23/23 Super Beets Heart Chews 2 tab PO W/LUNCH 01/23/23 01/23/23 Zinc Gluconate [Zinc] 50 mg PO DAILY 01/23/23 01/23/23 Allergies Allergy/AdvReac Type Severity Reaction Status Date / Time Paper Tape Allergy Redness/Itc Uncoded 01/23/23 20:39 erick Review of Systems ROS Statement: Those systems with pertinent positive or pertinent negative responses have been documented in the HPI. Review of Systems: CONST: Denies fever EYES: Denies blurry vision ENT: Denies nasal congestion C/V: Denies Chest pain RESP: Denies shortness of breath GI: Denies abdominal pain : Denies dysuria SKIN: Denies rash. MSK: Endorses joint pain NEURO: Denies headache ROS Other: All systems not noted in ROS Statement are negative. Past Medical History Past Medical History: Atrial Fibrillation, COPD, Diabetes Mellitus, Hyperlipidemia, Hypertension, Memory Impairment, Osteoarthritis (OA) Additional Past Medical History / Comment(s): possible Hiatal Hernia, left neck mass History of Any Multi-Drug Resistant Organisms: None Reported Past Surgical History: Cardiac Valve Replacement, Cholecystectomy, Orthopedic Surgery Additional Past Surgical History / Comment(s): Right knee surgery X5, Hammer Toe surgery, left knee arthroscopy Past Anesthesia/Blood Transfusion Reactions: Previous Problems w/ Anesthesia Additional Past Anesthesia/Blood Transfusion Reaction / Comment(s): Woke up during last knee surgery. Past Psychological History: No Psychological Hx Reported Smoking Status: Current every day smoker Past Alcohol Use History: Occasional Past Drug Use History: None Reported - Past Family History Father Family Medical History: Cancer Additional Family Medical History / Comment(s): Prostate Cancer. Brother(s) Additional Family Medical History / Comment(s): Blood clot from surgery. General Exam - General Exam Comments Initial Comments: General: Appears in mild distress secondary to pain. HEAD: Normal with no signs of head trauma. Patient has chronic mass over the left side of her neck which is known. Negative manzo sign. Negative raccoon eyes. EYES: PERRLA, EOMI, conjunctiva normal, no discharge. Pupils are 2 mm equal bilaterally. ENT: Hearing grossly intact, normal oropharynx. RESPIRATORY: Clear breath sounds bilaterally. No wheezes, rales, or rhonchi. C/V: Regular rate and rhythm. S1 and S2 auscultated, mild bilateral pitting edema, peripheral pulses 2+ and intact throughout ABD: Abd is soft, nontender, nondistended EXT: Decreased range of motion of the right hip and right knee. Right knee is chronic. Tenderness palpation over the right hip. No obvious deformities noted. Neurovascular intact. Mild tenderness palpation of the mid lower lumbar spine as well. No obvious step-offs or deformities. Pelvis is stable. No tenderness to palpation of the cervical or thoracic spine. SKIN: No rashes or lesions observed on exposed skin. NEURO: Alert and oriented x 4. Cranial nerves II-XII intact. No focal sensory or strength deficits. GCS of 15. Limitations: no limitations Course Vital Signs 01/23/23 01/23/23 15:02 19:39 Temperature 98.1 F 98.0 F Pulse Rate 82 58 L Respiratory 20 17 Rate Blood Pressure 120/79 146/77 O2 Sat by Pulse 96 93 L Oximetry Medical Decision Making - Medical Decision Making Was pt. sent in by a medical professional or institution (, PA, RE[employer] S[employer]TER, urgent care, hospital, or snf...) When possible be specific @ -No Did you speak to anyone other than the patient for history (EMS, parent, family, police, friend...)? What history was obtained from this source @ -No Did you review nursing and triage notes (agree or disagree)? Why? @ -I reviewed and agree with nursing and triage notes Were old charts reviewed (outside hosp., previous admission, EMS record, old EKG, old radiological studies, urgent care reports/EKG's, snf records)? Report findings @ -No old charts were reviewed Differential Diagnosis (chest pain, altered mental status, abdominal pain women, abdominal pain men, vaginal bleeding, weakness, fever, dyspnea, syncope, headache, dizziness, GI bleed, back pain, seizure, CVA, palpatations, mental health, musculoskeletal)? @ -Differential Musculoskeletal Muscular strain, contusion, ligament sprain, fracture, arthritis, septic arthritis, bursitis, cellulitis, muscle spasm, nerve compression, DVT, arterial occlusion, herpes zoster, electrolyte abnormality, tumor.... This is not meant to be in all inclusive list. Also includes intracranial injury, spine injury. EKG interpreted by me (3pts min.). @ -As above X-rays interpreted by me (1pt min.). @ -Chest x-ray reveals no obvious acute cardio pulmonary process. Right knee x-ray and right femur x-ray reveals no obvious acute traumatic injury. Radiology does note possible findings for femoral stem loosening. CT interpreted by me (1pt min.). @ -CT brain shows no obvious acute intracranial process. CT face reveals no obvious acute injury. CT cervical spine, thoracic spine reveal no obvious injuries. Possible compression fracture at L5. Extensive degenerative disc disease. 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 CT pelvis shows a comminuted nondisplaced IT fracture of the proximal right femur, as well as nondisplaced fractures of the right superior and right inferior pubic rami with adjacent hematoma. U/S interpreted by me (1pt. min.). @ -None done What testing was considered but not performed or refused? (CT, X-rays, U/S, labs)? Why? @ -None What meds were considered but not given or refused? Why? @ -None Did you discuss the management of the patient with other professionals (professionals i.e. , PA, RE[employer] S[employer]TER, lab, RT, psych nurse, social worker clinical, portable feed mill operator, teacher, sports development officer, shelter case manager)? Give summary @ -Discussed with Dr. Mejai who accepted the admission and requested cardiology as well as medicine consult which will be placed. Spoke with EBENEZER Ho who accepted the consult. Was smoking cessation discussed for >3mins.? @ -No Was critical care preformed (if so, how long)? @ -Yes, 42 minutes. Were there social determinants of health that impacted care today? How? (Homelessness, low income, unemployed, alcoholism, drug addiction, transportation, low edu. Level, literacy, decrease access to med. care, [facility], rehab)? @ -No Was there de-escalation of care discussed even if they declined (Discuss DNR or withdrawal of care, Hospice)? DNR status @ -No What co-morbidities impacted this encounter? (DM, HTN, Smoking, COPD, CAD, Cancer, CVA, ARF, Chemo, Hep., AIDS, mental health diagnosis, sleep apnea, morbid obesity)? @ -None Was patient admitted / discharged? Hospital course, mention meds given and route, prescriptions, significant lab abnormalities, going to OR and other pertinent info. @ -Based on the patient's presentation and physical exam, I'm concerned primarily for right hip injury. We will obtain CT imaging and x-rays. Basic labs also be obtained. She was in agreement this plan. Vital signs are within acceptable limits. She will receive IV fluids, as well as IV morphine for analgesia. Imaging reveals a right comminuted IT fracture of the femur as well as pubic rami fractures. No other obvious acute traumatic injury. Patient's labs reveal a chronic anemia with a hemoglobin of 9.5 which is stable. Patient also has CK D which is chronic. After the patient at this time. She will be admitted to orthopedics. She remains neurovascularly intact. I spoke with Dr. Mejia who accepted the admission. Consulted cardiology and medicine were placed. EKG showed no signs of acute ischemia. We did discuss reversing her anticoagulation which was done with Selena for the possible opportunity of performing surgery tomorrow. Patient was in agreement this plan. Undiagnosed new problem with uncertain prognosis? @ -No Drug Therapy requiring intensive monitoring for toxicity (Heparin, Nitro, Insulin, Cardizem)? @ -No Were any procedures done? @ -No Diagnosis/symptom? @ -Fall, right comminuted IT fracture of the femur,Pubic rami fractures Acute, or Chronic, or Acute on Chronic? @ -Acute Uncomplicated (without systemic symptoms) or Complicated (systemic symptoms)? @ -Complicated Side effects of treatment? @ -No Exacerbation, Progression, or Severe Exacerbation? @ -No Poses a threat to life or bodily function? How? (Chest pain, USA, ID, pneumonia, PE, COPD, DKA, ARF, appy, cholecystitis, CVA, Diverticulitis, Homicidal, Suicidal, threat to staff... and all critical care pts) @ -Possibly, yes - Lab Data Result diagrams: 01/23/23 15:40 01/23/23 15:40 Lab Results 01/23/23 01/23/23 01/23/23 Range/Units 15:40 15:40 15:40 WBC 6.3 (3.8-10.6) k/uL RBC 3.12 L (3.80-5.40) m/uL Hgb 9.5 L (11.4-16.0) gm/dL Hct 27.8 L (34.0-46.0) % MCV 89.2 (80.0-100.0) fL MCH 30.5 (25.0-35.0) pg MCHC 34.2 (31.0-37.0) g/dL RDW 15.1 (11.5-15.5) % Plt Count 106 L (150-450) k/uL MPV 8.9 Neutrophils % 77 % Lymphocytes % 14 % Monocytes % 6 % Eosinophils % 2 % Basophils % 0 % Neutrophils # 4.8 (1.3-7.7) k/uL Lymphocytes # 0.9 L (1.0-4.8) k/uL Monocytes # 0.4 (0-1.0) k/uL Eosinophils # 0.1 (0-0.7) k/uL Basophils # 0.0 (0-0.2) k/uL PT 10.2 (9.0-12.0) sec INR 1.0 (<1.2) APTT 24.6 (22.0-30.0) sec Sodium 134 L (137-145) mmol/L Potassium 4.1 (3.5-5.1) mmol/L Chloride 99 (98-107) mmol/L Carbon Dioxide 27 (22-30) mmol/L Anion Gap 8 mmol/L BUN 41 H (7-17) mg/dL Creatinine 1.30 H (0.52-1.04) mg/dL Est GFR (CKD-EPI)AfAm 43 (>60 ml/min/1.73 sqM) Est GFR (CKD-EPI)NonAf 38 (>60 ml/min/1.73 sqM) Glucose 115 H (74-99) mg/dL Calcium 9.1 (8.4-10.2) mg/dL Total Bilirubin 0.7 (0.2-1.3) mg/dL AST 28 (14-36) U/L ALT 18 (4-34) U/L Alkaline Phosphatase 89 (38-126) U/L Total Protein 6.9 (6.3-8.2) g/dL Albumin 3.9 (3.5-5.0) g/dL - EKG Data -: EKG Interpreted by Me EKG Comments: 12-lead Electrocardiogram Interpretation Note EKG was reviewed and interpreted by myself. 12-lead ECG performed at 1531 is interpreted by me as revealing atrial fibrillation at a rate of 68 beats per minute. [place] is normal. QRS duration is 92 ms, QTc is 435 ms. There were no ST or T wave abnormalities to suggest myocardial ischemia or injury. R wave progression across the precordium was satisfactory. By my interpretation this EKG is non-diagnostic for acute ischemia. Disposition Clinical Impression: Fall, Pubic ramus fracture, Intertrochanteric fracture of right femur Disposition: ADMITTED IP TO THIS HOSP Condition: Stable Time of Disposition: 18:55
[2023-01-23] MEDS ORDERED: NALOXONE 0.4 MG/ML 1 ML VIAL IV PRN (19:03)
[2023-01-23] MEDS ORDERED: ACETAMINOPHEN TAB 325 MG TAB PO PRN (19:03)
[2023-01-23] MEDS: SODIUM CHLORIDE 0.9% 1,000 ML IV SCH (19:38)
[2023-01-23 19:45] LABS: Prothrombin Time 10.4 sec (9.0-12.0)
[2023-01-23] MEDS: MORPHINE SULFATE 4 MG/ML SYRINGE IV PRN (22:30)
[2023-01-23] MEDS ORDERED: ZOLPIDEM 5 MG TAB PO PRN (23:12)
[2023-01-24 05:52] LABS: Glucose,Whole Blood 148 mg/dL (70-110)
[2023-01-24] MEDS: MORPHINE SULFATE 4 MG/ML SYRINGE IV PRN ×3 (05:54→19:37)
[2023-01-24] MEDS: METOPROLOL TARTRATE 25 MG TAB PO SCH (08:11)
[2023-01-24] MEDS: SODIUM CHLORIDE 0.9% 1,000 ML IV SCH ×2 (08:12→21:09)
[2023-01-24 08:18] LABS: Basophils % (A) 0 %; Eosinophils # (A) 0.1 k/uL (0-0.7); Eosinophils % (A) 1 %; HCT 23.6 % (34.0-46.0); Lymphocytes # (A) 0.8 k/uL (1.0-4.8); Lymphocytes % (A) 13 %; MCH 30.3 pg (25.0-35.0); MCHC 33.8 g/dL (31.0-37.0); MCV 89.7 fL (80.0-100.0); Mean Platelet Volume 9.2; Monocytes # (A) 0.4 k/uL (0-1.0); Monocytes % (A) 7 %; Neutrophils # (A) 4.7 k/uL (1.3-7.7); Neutrophils % (A) 78 %; RBC 2.63 m/uL (3.80-5.40); RDW 15.1 % (11.5-15.5); WBC 6.1 k/uL (3.8-10.6)
--- NOTE | 2023-01-24 08:30 | P.CRDCN ---
History of Present Illness Consult date: 01/24/23 History of present illness: HISTORY OF PRESENTING ILLNESS This is a pleasant 87-year-old with past medical history significant for aortic stenosis status post TAVR, chronic atrial fibrillation, mild nonobstructive coronary artery disease. She follows in the office with Dr. Crouch. Distention present to the hospital after she tripped over her right floor and had a fall. She was found to have a hip fracture for which she is being planned to go for an urgent surgery this morning. Cardiology was notified on an urgent basis due to perioperative risk assessment. Patient's atrial fibrillation is controlled. She is on Eliquis 2.5 mg twice a day and metoprolol 25 mg twice a day for this. She does not have any obstructive coronary artery disease. She has a prior TAVR procedure for severe aortic stenosis and from last office echocardiogram it has been reasonably stable with no significant paravalvular leaks. I obtained the history from patient's family over phone. Family denies any history of passing out or loss of consciousness. They deny that patient was feeling poorly lately complaining of any chest pain or shortness of breath or palpitations. They report that they're seeing her cafeteria assistant on a regular basis at six-month intervals with no recent changes to her medications or any recent exacerbations. She did not have any urgent care ER visits recently for any other reasons. Blood pressure 102/62, heart rate 90, Hemoglobin is 9.5, platelets 106, BUN 41, creatinine 1.3, sodium 134 potassium 4.1 PRIOR CARDIAC TESTING Cardiac cath from 2020 shows minimal nonobstructive coronary artery disease with severe aortic stenosis. Patient has a TAVR procedure done thereafter. REVIEW OF SYSTEMS 14 point review of system is negative except what is mentioned above in HPI. PHYSICAL EXAMINATION Vital signs reviewed. Head: Normocephalic. Eyes: Sclerae nonicteric. Neck: Brisk carotid upstroke, no jugular venous distention. Lungs: Clear to auscultation. Heart: Regular rate and rhythm, S1-S2, no S3, systolic ejection murmur audible in the aortic area. Brisk carotid upstrokes. Abdomen: Soft nontender, positive bowel sounds no organomegaly. Extremities: ASSESSMENT Right hip fracture status post mechanical fall Chronic atrial fibrillation Aortic Stenosis status post TAVR Nonobstructive coronary artery disease COPD Hypertension Chronic right lower extremity nonhealing wound PLAN Patient's RCR I score is low. She has low functional capacity and is partially dependent. Cardiac-pitts she stable with no active CHF, atrial fibrillation with RVR or active ischemia. Considering all that she is at moderate risk for a moderate colitis procedure Her hemoglobin is 9.5, platelets is 105, considering that she is at high risk for post op anemia. Surgeons may proceed with their own discretion. No obvious cardiac contraindications Obtain echocardiogram of the surgery Hold Eliquis Continue metoprolol 25 mg twice a day Past Medical History Past Medical History: Atrial Fibrillation, COPD, Diabetes Mellitus, Hyperlipidemia, Hypertension, Memory Impairment, Osteoarthritis (OA) Additional Past Medical History / Comment(s): possible Hiatal Hernia, left neck mass History of Any Multi-Drug Resistant Organisms: None Reported Past Surgical History: Cardiac Valve Replacement, Cholecystectomy, Orthopedic Surgery Additional Past Surgical History / Comment(s): Right knee surgery X5, Hammer Toe surgery, left knee arthroscopy Past Anesthesia/Blood Transfusion Reactions: Previous Problems w/ Anesthesia Additional Past Anesthesia/Blood Transfusion Reaction / Comment(s): Woke up during last knee surgery. Past Psychological History: No Psychological Hx Reported Smoking Status: Current some day smoker Past Alcohol Use History: Occasional Additional Past Alcohol Use History / Comment(s): 5-7 cigarettes daily since 17 yrs old. Past Drug Use History: None Reported - Past Family History Father Family Medical History: Cancer Additional Family Medical History / Comment(s): Prostate Cancer. Brother(s) Additional Family Medical History / Comment(s): Blood clot from surgery. Medications and Allergies Home Medications Medication Instructions Recorded Confirmed Type Apixaban [Eliquis] 2.5 mg PO BID 10/10/18 01/23/23 History Ascorbic Acid [Vitamin C] 1,000 mg PO DAILY 10/10/18 01/23/23 History Atorvastatin [Lipitor] 40 mg PO Q48H 10/10/18 01/23/23 History Cholecalciferol [Vitamin D3 (25 25 mcg PO DAILY 10/10/18 01/23/23 History Mcg = 1000 Iu)] Fosinopril/Hydrochlorothiazide 1 tab PO DAILY 10/10/18 01/23/23 History [Monopril HCT 10-12.5 mg] Latanoprost/Pf [Latanoprost 0.005% 1 drop RIGHT EYE HS 10/10/18 01/23/23 History Eye Drop] Metoprolol Tartrate [Lopressor] 25 mg PO DAILY 10/10/18 01/23/23 History Multivitamins, Thera [Multivitamin 1 tab PO DAILY 10/10/18 01/23/23 History (formulary)] metFORMIN HCL [metFORMIN HCL ER] 750 mg PO BID 10/10/18 01/23/23 History traMADol HCL [Ultram] 50 mg PO Q6HR PRN 10/10/18 01/23/23 History Diphenoxylate HCl/Atropine 1 - 2 tab PO QID PRN 01/17/20 01/23/23 History [Lomotil 2.5-0.025 mg Tablet] Ferrous Sulfate [Iron] 325 mg PO Q48H 01/17/20 01/23/23 History Furosemide [Lasix] 20 mg PO DAILY PRN 01/17/20 01/23/23 History Zolpidem [Ambien] 10 mg PO HS PRN 01/17/20 01/23/23 History Donepezil [Aricept] 10 mg PO DAILY 12/27/20 01/23/23 History Calcium 1000mg 1 tab PO DAILY 01/23/23 01/23/23 History Co Q-10 100mg 1 tab PO DAILY 01/23/23 01/23/23 History Gabapentin 300 mg PO TID 01/23/23 01/23/23 History Super Beets Heart Chews 2 tab PO W/LUNCH 01/23/23 01/23/23 History Zinc Gluconate [Zinc] 50 mg PO DAILY 01/23/23 01/23/23 History Allergies Allergy/AdvReac Type Severity Reaction Status Date / Time Paper Tape Allergy Redness/Itc Uncoded 01/23/23 20:39 erick Physical Exam Vitals: Vital Signs Temp Pulse Pulse Resp BP BP Pulse Ox 01/24/23 08:25 98 01/24/23 07:20 98.3 F 104 H 18 102/62 91 L 01/24/23 00:15 97.7 F 90 18 124/56 96 01/23/23 19:39 98.0 F 58 L 17 146/77 93 L 01/23/23 19:20 98.4 F 92 18 130/66 91 L 01/23/23 15:02 98.1 F 82 20 120/79 96 Intake and Output 08/01/24/23 01/24/23 22:59 06:59 14:59 Other: # Voids 1 Weight 70.307 kg Results 01/23/23 15:40 01/23/23 15:40 Cardiac Enzymes 01/23/23 Range/Units 15:40 AST 28 (14-36) U/L Coagulation 01/23/23 01/23/23 Range/Units 15:40 19:26 PT 10.2 10.4 (9.0-12.0) sec APTT 24.6 (22.0-30.0) sec CBC 01/23/23 Range/Units 15:40 WBC 6.3 (3.8-10.6) k/uL RBC 3.12 L (3.80-5.40) m/uL Hgb 9.5 L (11.4-16.0) gm/dL Hct 27.8 L (34.0-46.0) % Plt Count 106 L (150-450) k/uL Comprehensive Metabolic Panel 01/23/23 Range/Units 15:40 Sodium 134 L (137-145) mmol/L Potassium 4.1 (3.5-5.1) mmol/L Chloride 99 (98-107) mmol/L Carbon Dioxide 27 (22-30) mmol/L BUN 41 H (7-17) mg/dL Creatinine 1.30 H (0.52-1.04) mg/dL Glucose 115 H (74-99) mg/dL Calcium 9.1 (8.4-10.2) mg/dL AST 28 (14-36) U/L ALT 18 (4-34) U/L Alkaline Phosphatase 89 (38-126) U/L Total Protein 6.9 (6.3-8.2) g/dL Albumin 3.9 (3.5-5.0) g/dL Current Medications Generic Name Dose Route Start Last Admin Trade Name Freq PRN Reason Stop Dose Admin Acetaminophen 650 mg 01/23/23 19:03 01/23/23 19:51 Acetaminophen Tab 325 Mg Tab PO 650 mg Q6HR PRN Administration Mild Pain or Fever > 100.5 Ascorbic Acid 1,000 mg 01/24/23 09:00 Ascorbic Acid 500 Mg Tab PO DAILY [facility] Atorvastatin Calcium 40 mg 01/25/23 09:00 Atorvastatin 40 Mg Tab PO Q48H [facility] Cholecalciferol 25 mcg 01/24/23 09:00 Cholecalciferol 25 Mcg (1000 Iu) Tablet PO DAILY [facility] Donepezil HCl 10 mg 01/24/23 09:00 Donepezil 10 Mg Tab PO DAILY [facility] Sodium Chloride 1,000 mls @ 75 mls/hr 01/23/23 19:15 01/24/23 08:12 Saline 0.9% IV 75 mls/hr .[id number] [id number] Administration Latanoprost 1 drops 01/24/23 21:00 Latanoprost 0.005% Ophth Drops 2.5 Ml Btl RIGHT EYE HS [facility] Metoprolol Tartrate 25 mg 01/24/23 09:00 01/24/23 08:11 Metoprolol Tartrate 25 Mg Tab PO 25 mg DAILY [facility] Administration Morphine Sulfate 4 mg 01/23/23 19:03 01/24/23 05:54 Morphine Sulfate 4 Mg/Ml Syringe IV 4 mg Q4HR PRN Administration Severe Pain (Scale 7 to 10) Multivitamins 1 each 01/24/23 09:00 Multivitamins, Thera 1 Each Tab PO DAILY [facility] Naloxone HCl 0.2 mg 01/23/23 19:03 Naloxone 0.4 Mg/Ml 1 Ml Vial IV Q2M PRN Opioid Reversal Zinc Sulfate 220 mg 01/24/23 09:00 Zinc Sulfate 220 Mg Cap PO DAILY [facility] Zolpidem Tartrate 10 mg 01/23/23 23:12 Zolpidem 5 Mg Tab PO HS PRN Insomnia Intake and Output 01/23/23 01/24/23 01/24/23 22:59 06:59 14:59 Other: # Voids 1 Weight 70.307 kg 01/23/23 15:40 01/23/23 15:40
[2023-01-24 08:32] LABS: African American GFR (CKD) 49 (>60 ml/min/1.73 sqM); Anion Gap 5 mmol/L; Blood Urea Nitrogen 33 mg/dL (7-17); Calcium 8.3 mg/dL (8.4-10.2); Carbon Dioxide 27 mmol/L (22-30); Chloride 101 mmol/L (98-107); Glucose 113 mg/dL (74-99); Non-African American GFR(CKD) 42 (>60 ml/min/1.73 sqM); Potassium 3.8 mmol/L (3.5-5.1); Sodium 133 mmol/L (137-145)
--- NOTE | 2023-01-24 08:33 | P.HPIM ---
History of Present Illness This is a pleasant 87 years old female with multiple medical problems including atrial fibrillation, COPD, diabetes mellitus, hypertension, hyperlipidemia. Problem, osteoarthritis, history of heart valve replacement patient presents because of fall and right shoulder and right hip pain. Patient states that she was in the kitchen and she slipped her coffee, she is not sure exactly what she thinks she slipped in her coffee and fell on the floor, she hit the right side and back of her head and the right side of her body. No loss of consciousness, no chest pain or dyspnea around that time or before. No significant coughing. Patient smokes about 4 cigarettes per day and she was counseled to quit, she declines nicotine patch. No alcohol or illicit drugs. 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 She is not on oxygen at home, she got morphine in the hospital and her oxygen came down to 91% on 2 L oxygen via nasal cannula. No much wheezing on examination but she has mild prolonged expiration. No abdominal symptoms. She has mild headache after she hit the back of her head but no dizziness weakness or numbness in extremities. No diarrhea vomiting. She has some probably poor appetite lately. She follow up with the wound center for her leg wounds, she's been told that they're healing well but of the wound center prescribed her diuretic recently and symptoms then chest pain every half an hour as she states. Patient is afebrile. Rest of vitals looks stable. She is mildly tachypneic about 18 which is within the reference range. Labs reviewed hemoglobin 9.5 which is baseline. Platelet count 106 INR is 1.0. Creatinine 1.3 which is at baseline Liver enzymes not elevated and glucose control. EKG showing atrial fibrillation with rate controlled at [address]-T changes. Little alcohol voltage. CT of the brain: No acute process. Knee x-ray: No acute process pelvic x-ray: Comminuted nondisplaced intertrochanteric fracture proximal right femur Chest x-ray: Chronic changes without acute changes, similar to prior. Review of Systems GENERAL: The patient is alert and oriented x3, not in any acute distress. Well developed, well nourished. HEENT: Pupils are round and equally reacting to light. EOMI. No scleral icterus. No conjunctival pallor. Normocephalic, atraumatic. No pharyngeal erythema. No thyromegaly. CARDIOVASCULAR: S1 and S2 present. No murmurs, rubs, or gallops. PULMONARY: Chest is clear to auscultation, no wheezing , no crackles. ABDOMEN: Soft, nontender, nondistended, normoactive bowel sounds. No palpable organomegaly. MUSCULOSKELETAL: No joint swelling or deformity. EXTREMITIES: No cyanosis, clubbing, or pedal edema. NEUROLOGICAL: Gross neurological examination did not reveal any focal deficits. SKIN: No rashes. no petechiae. Past Medical History Past Medical History: Atrial Fibrillation, COPD, Diabetes Mellitus, Hyperlipidemia, Hypertension, Memory Impairment, Osteoarthritis (OA) Additional Past Medical History / Comment(s): possible Hiatal Hernia, left neck mass History of Any Multi-Drug Resistant Organisms: None Reported Past Surgical History: Cardiac Valve Replacement, Cholecystectomy, Orthopedic Surgery Additional Past Surgical History / Comment(s): Right knee surgery X5, Hammer Toe surgery, left knee arthroscopy Past Anesthesia/Blood Transfusion Reactions: Previous Problems w/ Anesthesia Additional Past Anesthesia/Blood Transfusion Reaction / Comment(s): Woke up during last knee surgery. Past Psychological History: No Psychological Hx Reported Smoking Status: Current some day smoker Past Alcohol Use History: Occasional Additional Past Alcohol Use History / Comment(s): 5-7 cigarettes daily since 17 yrs old. Past Drug Use History: None Reported - Past Family History Father Family Medical History: Cancer Additional Family Medical History / Comment(s): Prostate Cancer. Brother(s) Additional Family Medical History / Comment(s): Blood clot from surgery. Medications and Allergies Home Medications Medication Instructions Recorded Confirmed Type Apixaban [Eliquis] 2.5 mg PO BID 10/10/18 01/23/23 History Ascorbic Acid [Vitamin C] 1,000 mg PO DAILY 10/10/18 01/23/23 History Atorvastatin [Lipitor] 40 mg PO Q48H 10/10/18 01/23/23 History Cholecalciferol [Vitamin D3 (25 25 mcg PO DAILY 10/10/18 01/23/23 History Mcg = 1000 Iu)] Fosinopril/Hydrochlorothiazide 1 tab PO DAILY 10/10/18 01/23/23 History [Monopril HCT 10-12.5 mg] Latanoprost/Pf [Latanoprost 0.005% 1 drop RIGHT EYE HS 10/10/18 01/23/23 History Eye Drop] Metoprolol Tartrate [Lopressor] 25 mg PO DAILY 10/10/18 01/23/23 History Multivitamins, Thera [Multivitamin 1 tab PO DAILY 10/10/18 01/23/23 History (formulary)] metFORMIN HCL [metFORMIN HCL ER] 750 mg PO BID 10/10/18 01/23/23 History traMADol HCL [Ultram] 50 mg PO Q6HR PRN 10/10/18 01/23/23 History Diphenoxylate HCl/Atropine 1 - 2 tab PO QID PRN 01/17/20 01/23/23 History [Lomotil 2.5-0.025 mg Tablet] Ferrous Sulfate [Iron] 325 mg PO Q48H 01/17/20 01/23/23 History Furosemide [Lasix] 20 mg PO DAILY PRN 01/17/20 01/23/23 History Zolpidem [Ambien] 10 mg PO HS PRN 01/17/20 01/23/23 History Donepezil [Aricept] 10 mg PO DAILY 12/27/20 01/23/23 History Calcium 1000mg 1 tab PO DAILY 01/23/23 01/23/23 History Co Q-10 100mg 1 tab PO DAILY 01/23/23 01/23/23 History Gabapentin 300 mg PO TID 01/23/23 01/23/23 History Super Beets Heart Chews 2 tab PO W/LUNCH 01/23/23 01/23/23 History Zinc Gluconate [Zinc] 50 mg PO DAILY 01/23/23 01/23/23 History Allergies Allergy/AdvReac Type Severity Reaction Status Date / Time Paper Tape Allergy Redness/Itc Uncoded 01/23/23 20:39 erick Physical Exam Vitals: Vital Signs Temp Pulse Pulse Resp BP BP Pulse Ox 01/24/23 07:20 98.3 F 104 H 18 102/62 91 L 01/24/23 00:15 97.7 F 90 18 124/56 96 01/23/23 19:39 98.0 F 58 L 17 146/77 93 L 01/23/23 19:20 98.4 F 92 18 130/66 91 L 01/23/23 15:02 98.1 F 82 20 120/79 96 Intake and Output 01/23/23 01/24/2301/24/23 22:59 06:59 14:59 Other: # Voids 1 Weight 70.307 kg GENERAL: The patient is alert and oriented x3, not in any acute distress. Well developed, well nourished. HEENT: Pupils are round and equally reacting to light. EOMI. No scleral icterus. No conjunctival pallor. Normocephalic, atraumatic. No pharyngeal erythema. No thyromegaly. CARDIOVASCULAR: S1 and S2 present. No murmurs, rubs, or gallops. PULMONARY: Chest is clear to auscultation, no wheezing , no crackles. ABDOMEN: Soft, nontender, nondistended, normoactive bowel sounds. No palpable organomegaly. MUSCULOSKELETAL: No joint swelling or deformity. -EXTREMITIES: No cyanosis, clubbing, or pedal edema. Right hip area tenderness NEUROLOGICAL: Gross neurological examination did not reveal any focal deficits. SKIN: No rashes. no petechiae. Results CBC & Chem 7: 01/23/23 15:40 01/23/23 15:40 Labs: Abnormal Lab Results - Last 24 Hours (Table) 01/23/23 01/23/23 01/24/23 Range/Units 15:40 15:40 05:51 RBC 3.12 L (3.80-5.40) m/uL Hgb 9.5 L (11.4-16.0) gm/dL Hct 27.8 L (34.0-46.0) % Plt Count 106 L (150-450) k/uL Lymphocytes # 0.9 L (1.0-4.8) k/uL Sodium 134 L (137-145) mmol/L BUN 41 H (7-17) mg/dL Creatinine 1.30 H (0.52-1.04) mg/dL Glucose 115 H (74-99) mg/dL POC Glucose (mg/dL) 148 H (70-110) mg/dL Assessment and Plan Assessment: Right hip fracture, right intertrochanteric comminuted but not displaced fracture COPD with possible mild acute exacerbation and mild acute hypoxic respiratory failure Fall without syncope Nicotine dependence chronic kidney disease stage III Chronic bicytopenia, anemia and thrombocytopenia Plan: Check urine analysis and bladder scan Continue with pain management Continue with oxygen therapy and breathing treatment We'll consult Dr. Bolivar Cardiology already on the case and stated patient can go to surgery from their perspective. There is no contraindication for the patient to proceed with hip replacement and fixation, patient still has some risk from procedures given her medical history and age Labs and medication were reviewed.. Continue same treatment. Continue with symptomatic treatment. Resume home medication. Monitor labs and vitals. DVT and GI prophylaxis. Further recommendations as per clinical course of the patient DVT prophylaxis: Deferred to surgery team GI prophylaxis: pepcid PT/OT: Pending Prognosis is guarded Thank you for consulting us, we will follow up
--- NOTE | 2023-01-24 09:00 | P.CNPUL ---
History of Present Illness Consult date: 01/24/23 Chief complaint: hip fracture History of present illness: 87-year-old female patient being evaluated for a preoperative pulmonary clearance. The patient has a right hip fracture and the patient is going to be taken to the operating room. She is known to have COPD and currently is on oxygen 2 L. Chest x-ray shows no acute abnormalities. She follows up with us in the office. She also has mild nonobstructive coronary artery disease, previo us history of aortic stenosis and the patient has undergone a transcatheter aortic valve replacement. She has also chronic itch of fibrillation. On anticoagulation with Eliquis. Her most recent cardiac catheterization was in 2019. She has no overt signs of congestion heart failure. She is hemod ynamically stable. She is resting comfortably in bed. She is currently nothing by mouth. She is on 2 L with a pulse ox 98%. She is hemodynamically stable. She is afebrile. The white cell count at 6.4 with a hemoglobin of 8. BUN is 33 with a creatinine of 1.1 and the cognition profile is within normal. LFTs are within normal limits. CAT scan of the brain that was done at time of admission showed no acute abnormalities. She has chronic nonspecific white matter ischemic changes. CAT scan of the cervical spine and the thoracic spine in the lumbar spine was also done and it showed no acute fracture involving the C- spine. She has mild to moderate spondylitic changes and she has extensiveand a mid and lower thoracic spine and chronic L5 vertebral compression in the order of 60%. CAT scan of the pelvis showed comminuted nondisplaced fracture of the proximal right femur. She has bilateral hip OA. She also has a nondisplaced fracture of the right superior and right inferior pubic rami. The patient was given Kcaentra in the emergency department on 01/23/2023. Her pain is under adequate control. She is awake and alert. Review of Systems Constitutional: Reports as per HPI Eyes: denies as per HPI, denies blurred vision, denies bulging eye, denies decreased vision, denies diplopia, denies discharge, denies dry eye, denies irritation, denies itching, denies pain, denies photophobia, denies loss of peripheral vision, denies loss of vision, denies tunnel vision/blind spots Ears: deny: decreased hearing, ear discharge, earache, tinnitus Ears, nose, mouth and throat: Reports as per HPI Breasts: absent: as per HPI, change in shape, gynecomastia, masses, nipple discharge, pain, skin changes, swelling Cardiovascular: Reports as per HPI, Reports dyspnea on exertion Respiratory: Reports dyspnea Gastrointestinal: Reports as per HPI Genitourinary: Reports as per HPI Menstruation: Reports as per HPI Musculoskeletal: Reports fractures, Reports frequent falls Musculoskeletal: absent: ankle pain, ankle stiffness, ankle swelling Integumentary: Reports as per HPI Neurological: Reports as per HPI Psychiatric: Reports as per HPI Endocrine: Reports as per HPI Hematologic/Lymphatic: Reports as per HPI Allergic/Immunologic: Reports as per HPI Past Medical History Past Medical History: Atrial Fibrillation, COPD, Diabetes Mellitus, Hyperlipidemia, Hypertension, Memory Impairment, Osteoarthritis (OA) Additional Past Medical History / Comment(s): possible Hiatal Hernia, left neck mass History of Any Multi-Drug Resistant Organisms: None Reported Past Surgical History: Cardiac Valve Replacement, Cholecystectomy, Orthopedic Surgery Additional Past Surgical History / Comment(s): Right knee surgery X5, Hammer Toe surgery, left knee arthroscopy Past Anesthesia/Blood Transfusion Reactions: Previous Problems w/ Anesthesia Additional Past Anesthesia/Blood Transfusion Reaction / Comment(s): Woke up during last knee surgery. Past Psychological History: No Psychological Hx Reported Smoking Status: Current some day smoker Past Alcohol Use History: Occasional Additional Past Alcohol Use History / Comment(s): 5-7 cigarettes daily since 17 yrs old. Past Drug Use History: None Reported - Past Family History Father Family Medical History: Cancer Additional Family Medical History / Comment(s): Prostate Cancer. Brother(s) Additional Family Medical History / Comment(s): Blood clot from surgery. Medications and Allergies Home Medications Medication Instructions Recorded Confirmed Type Apixaban [Eliquis] 2.5 mg PO BID 10/10/18 01/23/23 History Ascorbic Acid [Vitamin C] 1,000 mg PO DAILY 10/10/18 01/23/23 History Atorvastatin [Lipitor] 40 mg PO Q48H 10/10/18 01/23/23 History Cholecalciferol [Vitamin D3 (25 25 mcg PO DAILY 10/10/18 01/23/23 History Mcg = 1000 Iu)] Fosinopril/Hydrochlorothiazide 1 tab PO DAILY 10/10/18 01/23/23 History [Monopril HCT 10-12.5 mg] Latanoprost/Pf [Latanoprost 0.005% 1 drop RIGHT EYE HS 10/10/18 01/23/23 History Eye Drop] Metoprolol Tartrate [Lopressor] 25 mg PO DAILY 10/10/18 01/23/23 History Multivitamins, Thera [Multivitamin 1 tab PO DAILY 10/10/18 01/23/23 History (formulary)] metFORMIN HCL [metFORMIN HCL ER] 750 mg PO BID 10/10/18 01/23/23 History traMADol HCL [Ultram] 50 mg PO Q6HR PRN 10/10/18 01/23/23 History Diphenoxylate HCl/Atropine 1 - 2 tab PO QID PRN 01/17/20 01/23/23 History [Lomotil 2.5-0.025 mg Tablet] Ferrous Sulfate [Iron] 325 mg PO Q48H 01/17/20 01/23/23 History Furosemide [Lasix] 20 mg PO DAILY PRN 01/17/20 01/23/23 History Zolpidem [Ambien] 10 mg PO HS PRN 01/17/20 01/23/23 History Donepezil [Aricept] 10 mg PO DAILY 12/27/20 01/23/23 History Calcium 1000mg 1 tab PO DAILY 01/23/23 01/23/23 History Co Q-10 100mg 1 tab PO DAILY 01/23/23 01/23/23 History Gabapentin 300 mg PO TID 01/23/23 01/23/23 History Super Beets Heart Chews 2 tab PO W/LUNCH 01/23/23 01/23/23 History Zinc Gluconate [Zinc] 50 mg PO DAILY 01/23/23 01/23/23 History Allergies Allergy/AdvReac Type Severity Reaction Status Date / Time Paper Tape Allergy Redness/Itc Uncoded 01/23/23 20:39 erick Physical Exam Vitals: Vital Signs Temp Pulse Pulse Resp BP BP Pulse Ox 01/24/23 08:25 98 01/24/23 07:20 98.3 F 104 H 18 102/62 91 L 01/24/23 00:15 97.7 F 90 18 124/56 96 01/23/23 19:39 98.0 F 58 L 17 146/77 93 L 01/23/23 19:20 98.4 F 92 18 130/66 91 L 01/23/23 15:02 98.1 F 82 20 120/79 96 Intake and Output 01/23/23 01/24/23 01/24/23 22:59 06:59 14:59 Other: # Voids 1 Weight 70.307 kg Gen. appearance the patient is calm and comfortable, awake and alert, currently on 2 L of O2 nasal cannula Head exam was generally normal. There was no scleral icterus or corneal arcus. Mucous membranes were moist. Neck was supple and without jugular venous distension, thyromegaly, or carotid bruits. Carotids were easily palpable bilaterally. There was no adenopathy. Lungs sounds are diminished. Otherwise, there is no wheezing no rhonchi or crackles Heart sounds are irregular, positive S1 and S2 and there is a faint grade 2/6 systolic ejection murmur Abdominal exam revealed normal bowel sounds. The abdomen was soft, non-tender, and without masses, organomegaly, or appreciable enlargement of the abdominal aorta. Extremities revealed a surgical wound over the right knee. The patient has a dry superficial wound in the right lower extremity without any active drainage or cellulitis. Right lower extremity is externally rotated. Pulses are intact. Skin shows a wound in the right lower extremity, uninfected, dry Neurologically, the patient is awake and alert and the patient does not have any focal neurological deficit. Cranial nerves are essentially intact. Results - Laboratory Findings CBC and BMP: 01/24/23 07:40 01/24/23 07:40 PT/INR, D-dimer PT 10.4 sec (9.0-12.0) 01/23/23 19: INR 1.0 (<1.2) 01/23/23 19:26 Abnormal lab findings: Abnormal Labs 01/23/23 01/23/23 01/24/23 15:40 15:40 05:51 RBC 3.12 L Hgb 9.5 L Hct 27.8 L Plt Count 106 L Lymphocytes # 0.9 L Sodium 134 L BUN 41 H Creatinine 1.30 H Glucose 115 H POC Glucose (mg/dL) 148 H Calcium 01/24/23 01/24/23 07:40 07:40 RBC 2.63 L Hgb 8.0 L D Hct 23.6 L Plt Count Lymphocytes # Sodium 133 L BUN 33 H Creatinine 1.18 H Glucose 113 H POC Glucose (mg/dL) Calcium 8.3 L - Diagnostic Findings Chest x-ray: image reviewed Assessment and Plan Plan: Right hip fracture secondary to fall, awaiting ORIF Pelvic fracture with secondary pain Chronic spondylosis involving the cervical spine in addition to a compression fracture involving the L5 spine with 60% height loss in addition to extensive DISH involving the thoracic spine Chronic atrial fibrillation, currently off in the cognition and the patient was given Kcentra History of aortic stenosis post transcatheter valve replacement Mild nonocclusive coronary artery disease COPD was currently inactive and stable Anemia of chronic disease, normocytic Acute kidney injury, improving and a creatinine of 1.1 History of right lower extremity wounds, the patient has been followed up with a 1 cm Hyperlipidemia Osteoarthritis Plan Proceed with surgery under general anesthesia. Spinal anesthesia will be possibly complicated the patient was taken and coagulation with Eliquis Cleared from a pulmonary standpoint. She carries a high risk of developing postoperative complications in general due to her age and comorbidities. The family understands. We'll take to the ICU if needed Her condition is stable Provide the patient incentive spirometer ANTICOAGULATION for now Pain control and the patient is receiving morphine for now We'll continue to follow. Cardiology evaluation is appreciated. We'll proceed with surgery today.
[2023-01-24 09:13] LABS: Platelet Count 85 k/uL (150-450)
--- NOTE | 2023-01-24 09:20 | P.HPOR ---
History of Present Illness H&P Date: 01/24/23 Chief Complaint: Right hip pain. This is an 87-year-old female who fell in her kitchen yesterday after slipping on some water on the tile floor. She had immediate pain in the right hip. She is brought to the emergency department. Family is present at bedside. She complains of mild right shoulder pain. She has no neck pain. She complains of no numbness or tingling to the upper or lower extremities. Past Medical History Past Medical History: Atrial Fibrillation, COPD, Diabetes Mellitus, Hyperlipidemia, Hypertension, Memory Impairment, Osteoarthritis (OA) Additional Past Medical History / Comment(s): possible Hiatal Hernia, left neck mass History of Any Multi-Drug Resistant Organisms: None Reported Past Surgical History: Cardiac Valve Replacement, Cholecystectomy, Orthopedic Surgery Additional Past Surgical History / Comment(s): Right knee surgery X5, Hammer Toe surgery, left knee arthroscopy Past Anesthesia/Blood Transfusion Reactions: Previous Problems w/ Anesthesia Additional Past Anesthesia/Blood Transfusion Reaction / Comment(s): Woke up during last knee surgery. Past Psychological History: No Psychological Hx Reported Smoking Status: Current some day smoker Past Alcohol Use History: Occasional Additional Past Alcohol Use History / Comment(s): 5-7 cigarettes daily since 17 yrs old. Past Drug Use History: None Reported - Past Family History Father Family Medical History: Cancer Additional Family Medical History / Comment(s): Prostate Cancer. Brother(s) Additional Family Medical History / Comment(s): Blood clot from surgery. Medications and Allergies Home Medications Medication Instructions Recorded Confirmed Type Apixaban [Eliquis] 2.5 mg PO BID 10/10/18 01/23/23 History Ascorbic Acid [Vitamin C] 1,000 mg PO DAILY 10/10/18 01/23/23 History Atorvastatin [Lipitor] 40 mg PO Q48H 10/10/18 01/23/23 History Cholecalciferol [Vitamin D3 (25 25 mcg PO DAILY 10/10/18 01/23/23 History Mcg = 1000 Iu)] Fosinopril/Hydrochlorothiazide 1 tab PO DAILY 10/10/18 01/23/23 History [Monopril HCT 10-12.5 mg] Latanoprost/Pf [Latanoprost 0.005% 1 drop RIGHT EYE HS 10/10/18 01/23/23 History Eye Drop] Metoprolol Tartrate [Lopressor] 25 mg PO DAILY 10/10/18 01/23/23 History Multivitamins, Thera [Multivitamin 1 tab PO DAILY 10/10/18 01/23/23 History (formulary)] metFORMIN HCL [metFORMIN HCL ER] 750 mg PO BID 10/10/18 01/23/23 History traMADol HCL [Ultram] 50 mg PO Q6HR PRN 10/10/18 01/23/23 History Diphenoxylate HCl/Atropine 1 - 2 tab PO QID PRN 01/17/20 01/23/23 History [Lomotil 2.5-0.025 mg Tablet] Ferrous Sulfate [Iron] 325 mg PO Q48H 01/17/20 01/23/23 History Furosemide [Lasix] 20 mg PO DAILY PRN 01/17/20 01/23/23 History Zolpidem [Ambien] 10 mg PO HS PRN 01/17/20 01/23/23 History Donepezil [Aricept] 10 mg PO DAILY 12/27/20 01/23/23 History Calcium 1000mg 1 tab PO DAILY 01/23/23 01/23/23 History Co Q-10 100mg 1 tab PO DAILY 01/23/23 01/23/23 History Gabapentin 300 mg PO TID 01/23/23 01/23/23 History Super Beets Heart Chews 2 tab PO W/LUNCH 01/23/23 01/23/23 History Zinc Gluconate [Zinc] 50 mg PO DAILY 01/23/23 01/23/23 History Allergies Allergy/AdvReac Type Severity Reaction Status Date / Time Paper Tape Allergy Redness/Itc Uncoded 01/23/23 20:39 erick Physical Examination This is an 87-year-old female in no acute distress. She is alert and oriented 3. Exam of the head neck reveal no obvious deformity. She has full cervical spine motion without difficulty or pain. There is very mild tenderness to palpation about the right paraspinal musculature. Nontender over the spinous processes. Exam the upper extremities reveals no obvious deformity. No swelling or ecchymosis. She is able to raise each arm over the head without difficulty. There is crepitus noted with range of motion of the right shoulder. Exam the lower extremities reveals shortening and external rotation to the right leg. There is a total knee scar in place which is well-healed. There are wounds noted bilateral lower extremities that are covered with dressing and compression stockinette. She has full foot ankle motion bilaterally. Neurova scular status to the lower extremites is intact. Results X-rays and computed tomography scan of the pelvis and right hip reveal a mildly comminuted, minimally displaced intertrochanteric fracture. There is also a. Inferior rami fractures on the right. There is a long stemmed total knee revision in place. No periprosthetic fractures noted. Lumbar films reveal a chronic L5 compression fracture. Head and neck CT reveals no intracranial bleed. Chronic spinal stenosis noted in the cervical spine. - Labs Labs: Abnormal Lab Results - Last 24 Hours (Table) 01/23/23 01/23/23 01/24/23 Range/Units 15:40 15:40 05:51 RBC 3.12 L (3.80-5.40) m/uL Hgb 9.5 L (11.4-16.0) gm/dL Hct 27.8 L (34.0-46.0) % Plt Count 106 L (150-450) k/uL Lymphocytes # 0.9 L (1.0-4.8) k/uL Sodium 134 L (137-145) mmol/L BUN 41 H (7-17) mg/dL Creatinine 1.30 H (0.52-1.04) mg/dL Glucose 115 H (74-99) mg/dL POC Glucose (mg/dL) 148 H (70-110) mg/dL Calcium (8.4-10.2) mg/dL 01/24/23 01/24/23 Range/Units 07:40 07:40 RBC 2.63 L (3.80-5.40) m/uL Hgb 8.0 L D (11.4-16.0) gm/dL Hct 23.6 L (34.0-46.0) % Plt Count (150-450) k/uL Lymphocytes # (1.0-4.8) k/uL Sodium 133 L (137-145) mmol/L BUN 33 H (7-17) mg/dL Creatinine 1.18 H (0.52-1.04) mg/dL Glucose 113 H (74-99) mg/dL POC Glucose (mg/dL) (70-110) mg/dL Calcium 8.3 L (8.4-10.2) mg/dL H & H 01/23/23 01/24/23 Range/Units 15:40 07:40 Hgb 9.5 L 8.0 L D (11.4-16.0) gm/dL Hct 27.8 L 23.6 L (34.0-46.0) % Coagulation 01/23/23 01/23/23 Range/Units 15:40 19:26 INR 1.0 1.0 (<1.2) Result Diagrams: 01/24/23 07:40 01/24/23 07:40 Assessment and Plan (1) Atrial fibrillation Current Visit: Yes Status: Acute Code(s): I48.91 - UNSPECIFIED ATRIAL FIBRILLATION SNOMED Code(s): 78626354 (2) Chronic obstructive pulmonary disease (COPD) Current Visit: Yes Status: Acute Code(s): J44.9 - CHRONIC OBSTRUCTIVE PULMONARY DISEASE, UNSPECIFIED SNOMED Code(s): 06047679 (3) Chronic wound of extremity Current Visit: Yes Status: Acute Code(s): OZU8337 - SNOMED Code(s): 21060427396934 (4) Fall Current Visit: Yes Status: Acute Code(s): W19.XXXA - UNSPECIFIED FALL, INITIAL ENCOUNTER SNOMED Code(s): 7558826 (5) Intertrochanteric fracture of right femur Current Visit: Yes Status: Acute Code(s): S72.141A - DISPLACED INTERTROCHANTERIC FRACTURE OF RIGHT FEMUR, INIT SNOMED Code(s): 776399114 (6) Pubic ramus fracture Current Visit: Yes Status: Acute Code(s): S32.599A - OTH FRACTURE OF UNSP PUBIS, INIT ENCNTR FOR CLOSED FRACTURE SNOMED Code(s): 41129881 Plan: The clinical and radiographic findings are discussed with the patient and her family. It is recommended she undergo closed reduction with insertion of intertrochanteric nail of the right hip with the possibility of a sideplate and screws. The procedures discussed in detail including the possible risks and outcomes of surgery. The patient has been cleared by internal medicine, cardiology and pulmonology. We anticipate surgery today. She may likely need transfer to inpatient rehab postoperatively.
[2023-01-24 09:53] LABS: Appearance,Urine Clear (Clear); Bilirubin,Urine Negative (Negative); Blood,Urine Negative (Negative); Color,Urine Yellow; Glucose,Urine (UA) Negative (Negative); Ketones,Urine Negative (Negative); Leukocyte Esterase,Urine Trace (Negative); Nitrite,Urine Negative (Negative); PH, Urine 5.5 (5.0-8.0); Protein,Urine Negative (Negative); RBC,Urine 1 /hpf (0-5); Specific Gravity,Urine 1.014 (1.001-1.035); Urobilinogen,Urine <2.0 mg/dL (<2.0); WBC,Urine 3 /hpf (0-5)
[2023-01-24] MEDS ORDERED: LIDOCAINE 2% INJ 20 MG/ML (2 ML VIAL) ONE (10:00)
[2023-01-24] MEDS ORDERED: PROPOFOL 10 MG/ML 20 ML VIAL IV ONE (10:00)
[2023-01-24] MEDS ORDERED: GLYCOPYRROLATE 0.2 MG/ML 2 ML VIAL ONE (10:00)
[2023-01-24] MEDS ORDERED: SODIUM CHLORIDE 0.9% 50 ML with ceFAZolin 2,000 MG IV ONE ×2 (10:00)
[2023-01-24] MEDS ORDERED: SUCCINYLCHOLINE CHLORIDE 200 MG/10 ML VIAL IV ONE (10:00)
[2023-01-24] MEDS ORDERED: NEOSTIGMINE 1 MG/ML 10 ML VIAL ONE (10:00)
[2023-01-24] MEDS ORDERED: fentaNYL (PF) 50 MCG/ML 2 ML AMP ONE (10:00)
[2023-01-24] MEDS ORDERED: TRANEXAMIC 1,000 MG/100ML-NACL PREMIX BAG ONE (10:00)
[2023-01-24] MEDS ORDERED: ROCURONIUM 10 MG/ML (5 ML VIAL) IV ONE (10:00)
[2023-01-24] MEDS ORDERED: LACTATED RINGERS 1,000 ML IV ONE (10:00)
[2023-01-24] MEDS ORDERED: ONDANSETRON 4 MG/2 ML VIAL ONE (10:00)
[2023-01-24] MEDS ORDERED: TRANEXAMIC 1,000 MG/100ML-NACL 1,000 MG in SALINE 1 100ML.BAG IVPB ONE ×2 (10:36→10:45)
[2023-01-24] MEDS ORDERED: ceFAZolin 1,000 MG in SODIUM CHLORIDE 0.9% 1,000 ML IRRIGATION ONE (10:58)
[2023-01-24] MEDS ORDERED: SODIUM CHLORIDE 0.9% 1,000 ML IV ONE (12:13)
--- NOTE | 2023-01-24 13:15 | FL ---
Intraoperative/procedural fluoroscopic services were provided. Total fluoroscopy time is 46 seconds w ith a total of 2 submitted images to PACS. Please see the operative/procedural note for further detai ls. DAP: 2.9288 Gycm2
[2023-01-24] MEDS: ASCORBIC ACID 500 MG TAB PO SCH (14:38)
[2023-01-24] MEDS: MULTIVITAMINS, THERA 1 EACH TAB PO SCH (14:38)
[2023-01-24] MEDS: CHOLECALCIFEROL 25 MCG (1000 IU) TABLET PO SCH (14:38)
[2023-01-24] MEDS: DONEPEZIL 10 MG TAB PO SCH (14:38)
[2023-01-24] MEDS: ZINC SULFATE 220 MG CAP PO SCH (14:38)
[2023-01-24] MEDS: HYDROcodone/APAP 5-325MG 1 EACH TAB PO PRN (16:47)
[2023-01-24] MEDS: LATANOPROST 0.005% OPHTH DROPS 2.5 ML BTL RIGHT EYE SCH (21:08)
[2023-01-25] MEDS: MORPHINE SULFATE 4 MG/ML SYRINGE IV PRN ×3 (01:07→18:07)
[2023-01-25] MEDS: METOPROLOL TARTRATE 25 MG TAB PO SCH (09:42)
[2023-01-25] MEDS: DONEPEZIL 10 MG TAB PO SCH (09:42)
[2023-01-25] MEDS: ZINC SULFATE 220 MG CAP PO SCH (09:42)
[2023-01-25] MEDS: ATORVASTATIN 40 MG TAB PO SCH (09:42)
[2023-01-25] MEDS: MULTIVITAMINS, THERA 1 EACH TAB PO SCH (09:42)
[2023-01-25] MEDS: CHOLECALCIFEROL 25 MCG (1000 IU) TABLET PO SCH (09:42)
[2023-01-25] MEDS: ASCORBIC ACID 500 MG TAB PO SCH (09:42)
[2023-01-25] MEDS: TAMSULOSIN 0.4 MG CAP.ER.24H PO SCH (09:46)
[2023-01-25] MEDS: HYDROcodone/APAP 5-325MG 1 EACH TAB PO PRN (11:12)
--- NOTE | 2023-01-25 11:56 | P.PN ---
Subjective Progress Note Date: 01/25/23 Principal diagnosis: Right intertrochanteric hip fracture. Status post close reduction with insertion of intertrochanteric nail right hip. This is an 87-year-old female who fell in her kitchen yesterday after slipping on some water on the tile floor. She had immediate pain in the right hip. She is brought to the emergency department. Family is present at bedside. She complains of mild right shoulder pain. She has no neck pain. She complains of no numbness or tingling to the upper or lower extremities. 01/25/2023: The patient is postoperative day #1 status post close reduction with insertion of intertrochanteric nail of the right hip. She is doing well from an orthopedic standpoint. She did has had some urinary retention. She has been straight cathed twice with more than 500 mL obtained each time. She is having minimal pain at this time. Vital signs and labs are stable. Objective - Vital Signs Vital signs: Vital Signs Temp 99.4 F 01/25/23 06:45 Pulse 110 H 01/25/23 06:45 Resp 18 01/25/23 06:45 BP 123/71 01/25/23 06:45 Pulse Ox 96 01/25/23 06:45 FiO2 Intake & Output 01/24/23 01/25/23 01/25/23 18:59 06:59 18:59 Intake Total 1026 Output Total 1500 1712 300 Balance -474 -1712 -300 Weight 70.307 kg Intake: IV 1026 Output: Urine 1400 1156 300 Straight 500 Post Void Residual 556 Estimated Blood Loss 100 Other: Voiding Method External Catheter External Catheter # Voids 1 - Exam This is a pleasant 87-year-old female in no acute distress. She is alert and oriented 3. Family is present at bedside. Exam of the head neck reveal no obvious deformity. She has good cervical spine motion without difficulty or pain. Exam of the upper extremities reveals full range of motion of the shoulders with minimal pain. Neurovascular status the upper extremities is intact. Exam of the lower extremities reveals that her right hip dressing is clean, dry and intact. She has full foot and ankle motion bilaterally without difficulty or pain. Homans is negative bilaterally. There is dressing intact over both lower legs. Neurovascular status to the lower extremities is intact. - Labs CBC & Chem 7: 01/24/23 07:40 01/24/23 07:40 Assessment and Plan (1) Atrial fibrillation Current Visit: Yes Status: Acute Code(s): I48.91 - UNSPECIFIED ATRIAL FIBRILLATION SNOMED Code(s): 77164722 (2) Chronic obstructive pulmonary disease (COPD) Current Visit: Yes Status: Acute Code(s): J44.9 - CHRONIC OBSTRUCTIVE PULMONARY DISEASE, UNSPECIFIED SNOMED Code(s): 50238654 (3) Chronic wound of extremity Current Visit: Yes Status: Acute Code(s): WCA7716 - SNOMED Code(s): 38589026772171 (4) Fall Current Visit: Yes Status: Acute Code(s): W19.XXXA - UNSPECIFIED FALL, INITIAL ENCOUNTER SNOMED Code(s): 4664478 (5) Intertrochanteric fracture of right femur Current Visit: Yes Status: Acute Code(s): S72.141A - DISPLACED INTERTROCHANTERIC FRACTURE OF RIGHT FEMUR, INIT SNOMED Code(s): 891616309 (6) Pubic ramus fracture Current Visit: Yes Status: Acute Code(s): S32.599A - OTH FRACTURE OF UNSP PUBIS, INIT ENCNTR FOR CLOSED FRACTURE SNOMED Code(s): 50647911 Plan: The clinical and radiographic findings are discussed with the patient and her family. I have consulted wound care for evaluation of her lower extremity wounds. She generally sees wound care weekly. She may be up with assistance. She is toe-touch weightbearing with lower extremity. Anticipate discharge to inpatient rehab when cleared medically.
--- NOTE | 2023-01-25 12:23 | P.PN ---
Subjective Progress Note Date: 01/25/23 87-year-old female patient being evaluated for a preoperative pulmonary clearance. The patient has a right hip fracture and the patient is going to be taken to the operating room. She is known to have COPD and currently is on oxygen 2 L. Chest x-ray shows no acute abnormalities. She follows up with us in the office. She also has mild nonobstructive coronary artery disease, previous history of aortic stenosis and the patient has undergone a transcatheter aortic valve replacement. She has also chronic itch of fibrillation. On anticoagulation with Eliquis. Her most recent cardiac catheterization was in 2019. She has no overt signs of congestion heart failure. She is hemodynamically stable. She is resting comfortably in bed. She is currently nothing by mouth. She is on 2 L with a pulse ox 98%. She is hemodynamically stable. She is afebrile. The white cell count at 6.4 with a hemoglobin of 8. BUN is 33 with a creatinine of 1.1 and the cognition profile is within normal. LFTs are within normal limits. CAT scan of the brain that was done at time of admission showed no acute abnormalities. She has chronic nonspecific white matter ischemic changes. CAT scan of the cervical spine and the thoracic spine in the lumbar spine was also done and it showed no acute fracture involving the C-spine. She has mild to moderate spondylitic changes and she has extensiveand a mid and lower thoracic spine and chronic L5 vertebral compression in the order of 60%. CAT scan of the pelvis showed comminuted nondisplaced fracture of the proximal right femur. She has bilateral hip OA. She also has a nondisplaced fracture of the right superior and right inferior pubic rami. The patient was given Kcaentra in the emergency department on 01/23/2023. Her pain is under adequate control. She is awake and alert. 01/26/2020, the patient is clinically and hemodynamically stable. She is using the incentive spirometer and she is pulling approximately 1000. She is postop day #1. No respiratory difficulties. She is back on anticoagulation with Eliquis 2.5 mg twice a day. No other significant events overnight. Family the bedside. She remains on normal saline at rate of 75 mL an hour. The patient is currently postop day #1 following an intertrochanteric may placement in the r ight hip. She was Twice and the patient had more than half a liter of urine output. Objective - Vital Signs Vital signs: Vital Signs Temp 99.4 F 01/25/23 06:45 Pulse 110 H 01/25/23 06:45 Resp 18 01/25/23 06:45 BP 123/71 01/25/23 06:45 Pulse Ox 96 01/25/23 06:45 FiO2 Intake & Output 01/24/23 01/25/23 01/25/23 18:59 06:59 18:59 Intake Total 1026 Output Total 1500 1712 Balance -474 -1712 Weight 70.307 kg Intake: IV 1026 Output: Urine 1400 1156 Straight 500 Post Void Residual 556 Estimated Blood Loss 100 Other: Voiding Method External Catheter External Catheter # Voids 1 - Exam Gen. appearance the patient is calm and comfortable, awake and alert, currently on 2 L of O2 nasal cannula Head exam was generally normal. There was no scleral icterus or corneal arcus. Mucous membranes were moist. Neck was supple and without jugular venous distension, thyromegaly, or carotid bruits. Carotids were easily palpable bilaterally. There was no adenopathy. Lungs sounds are diminished. Otherwise, there is no wheezing no rhonchi or crackles Heart sounds are irregular, positive S1 and S2 and there is a faint grade 2/6 systolic ejection murmur Abdominal exam revealed normal bowel sounds. The abdomen was soft, non-tender, and without masses, organomegaly, or appreciable enlargement of the abdominal aorta. Extremities revealed a surgical wound over the right knee. The patient has a dry superficial wound in the right lower extremity without any active drainage or cellulitis. Right lower extremity is externally rotated. Pulses are intact. The surgical sites over the right hip is dry clean and intact Skin shows a wound in the right lower extremity, uninfected, dry Neurologically, the patient is awake and alert and the patient does not have any focal neurological deficit. Cranial nerves are essentially intact. - Labs CBC & Chem 7: 01/24/23 07:40 01/24/23 07:40 Assessment and Plan Plan: Right hip fracture secondary to fall, awaiting ORIF, post into the trochanteric nailing and the patient is postop day #1 Pelvic fracture with secondary pain Chronic spondylosis involving the cervical spine in addition to a compression fracture involving the L5 spine with 60% height loss in addition to extensive DISH involving the thoracic spine Chronic atrial fibrillation, currently off in the cognition and the patient was given Kcentra History of aortic stenosis post transcatheter valve replacement Mild nonocclusive coronary artery disease COPD was currently inactive and stable Anemia of chronic disease, normocytic Acute kidney injury, improving and a creatinine of 1.1 History of right lower extremity wounds, the patient has been followed up with a 1 cm Hyperlipidemia Osteoarthritis Plan Currently on 2 L O2 Using incentive spirometer Back on is Her condition is stable Provide the patient incentive spirometer Pain control and the patient is receiving morphine for now, home medications have been resumed We'll continue to follow.
--- NOTE | 2023-01-25 12:51 | P.PN ---
Subjective This is a pleasant 87 years old female with multiple medical problems including atrial fibrillation, COPD, diabetes mellitus, hypertension, hyperlipidemia. Problem, osteoarthritis, history of heart valve replacement patient presents because of fall and right shoulder and right hip pain. Patient states that she was in the kitchen and she slipped her coffee, she is not sure exactly what she thinks she slipped in her coffee and fell on the floor, she hit the right side and back of her head and the right side of her body. No loss of consciousness, no chest pain or dyspnea around that time or before. No significant coughing. Patient smokes about 4 cigarettes per day and she was counseled to quit, she declines nicotine patch. No alcohol or illicit drugs. She sees Dr. Lehman her lookback coordinator every 6 months. She is not on oxygen at home, she got morphine in the hospital and her oxygen came down to 91% on 2 L oxygen via nasal cannula. No much wheezing on examination but she has mild prolonged expiration. No abdominal symptoms. She has mild headache after she hit the back of her head but no dizziness weakness or numbness in extremities. No diarrhea vomiting. She has some probably poor appetite lately. She follow up with the wound center for her leg wounds, she's been told that they're healing well but of the wound center prescribed her diuretic recently and symptoms then chest pain every half an hour as she states. Patient is afebrile. Rest of vitals looks stable. She is mildly tachypneic about 18 which is within the reference range. Labs reviewed hemoglobin 9.5 which is baseline. Platelet count 106 INR is 1.0. Creatinine 1.3 which is at baseline Liver enzymes not elevated and glucose control. EKG showing atrial fibrillation with rate controlled at [address]-T changes. Little alcohol voltage. CT of the brain: No acute process. Knee x-ray: No acute process pelvic x-ray: Comminuted nondisplaced intertrochanteric fracture proximal right femur Chest x-ray: Chronic changes without acute changes, similar to prior. 01/25/2023 Patient is awake and alert, sitting up in bed, pleasant and relaxed. Pain controlled on the right hip area. No dizziness, no chest pain or dyspnea. Patient creatinine down to 1.1. Vitals stable. Hemoglobin dropped postoperatively 9.5-8 Which Is Expected. Patient Has Minimal Pain at the Right Hip Side Where Dressing in Place and Wound Looks Healing. No Particular Rash Physical therapy evaluation Objective - Vital Signs Vital signs: Vital Signs Temp 99.4 F 01/25/23 06:45 Pulse 110 H 01/25/23 06:45 Resp 18 01/25/23 06:45 BP 123/71 01/25/23 06:45 Pulse Ox 96 01/25/23 06:45 FiO2 Intake & Output 01/24/23 01/25/23 01/25/23 18:59 06:59 18:59 Intake Total 1026 Output Total 1500 1712 Balance -474 -1712 Weight 70.307 kg Intake: IV 1026 Output: Urine 1400 1156 Straight 500 Post Void Residual 556 Estimated Blood Loss 100 Other: Voiding Method External Catheter External Catheter # Voids 1 - Exam GENERAL: The patient is alert and oriented x3, not in any acute distress. Well developed, well nourished. HEENT: Pupils are round and equally reacting to light. EOMI. No scleral icterus. No conjunctival pallor. Normocephalic, atraumatic. No pharyngeal erythema. No thyromegaly. CARDIOVASCULAR: S1 and S2 present. No murmurs, rubs, or gallops. PULMONARY: Chest is clear to auscultation, no wheezing , no crackles. ABDOMEN: Soft, nontender, nondistended, normoactive bowel sounds. No palpable organomegaly. MUSCULOSKELETAL: No joint swelling or deformity. EXTREMITIES: No cyanosis, clubbing, or pedal edema. NEUROLOGICAL: Gross neurological examination did not reveal any focal deficits. SKIN: No rashes. no petechiae. - Labs CBC & Chem 7: 01/24/23 07:40 01/24/23 07:40 Labs: Abnormal Lab Results - Last 24 Hours (Table) 01/24/23 01/24/23 Range/Units 07:40 09:22 Plt Count 85 L (150-450) k/uL Lymphocytes # 0.8 L (1.0-4.8) k/uL Ur Leukocyte Esterase Trace H (Negative) Assessment and Plan Assessment: Right hip fracture, right intertrochanteric comminuted but not displaced fracture COPD with possible mild acute exacerbation and mild acute hypoxic respiratory failure Fall without syncope Nicotine dependence chronic kidney disease stage III Chronic bicytopenia, anemia and thrombocytopenia Plan: Check urine analysis and bladder scan Continue with pain management Continue with oxygen therapy and breathing treatment We'll consult Dr. Bolivar Cardiology already on the case and stated patient can go to surgery from their perspective. There is no contraindication for the patient to proceed with hip replacement and fixation, patient still has some risk from procedures given her medical history and age Labs and medication were reviewed.. Continue same treatment. Continue with symptomatic treatment. Resume home medication. Monitor labs and vitals. DVT and GI prophylaxis. Further recommendations as per clinical course of the patient DVT prophylaxis: Deferred to surgery team GI prophylaxis: pepcid PT/OT: Pending Prognosis is guarded Thank you for consulting us, we will follow up
[2023-01-25] MEDS: SODIUM CHLORIDE 0.9% 1,000 ML IV SCH (13:30)
[2023-01-25] MEDS: LATANOPROST 0.005% OPHTH DROPS 2.5 ML BTL RIGHT EYE SCH (20:52)
[2023-01-25] MEDS ORDERED: APIXABAN 2.5 MG TABLET PO SCH (21:00)
[2023-01-26] MEDS: HYDROcodone/APAP 5-325MG 1 EACH TAB PO PRN ×3 (00:36→12:28)
[2023-01-26] MEDS: SODIUM CHLORIDE 0.9% 1,000 ML IV SCH (06:08)
--- NOTE | 2023-01-26 07:50 | P.PN ---
Subjective Progress Note Date: 01/26/23 Principal diagnosis: Right intertrochanteric hip fracture. Status post close reduction with insertion of intertrochanteric nail right hip. This is an 87-year-old female who fell in her kitchen yesterday after slipping on some water on the tile floor. She had immediate pain in the right hip. She is brought to the emergency department. Family is present at bedside. She complains of mild right shoulder pain. She has no neck pain. She complains of no numbness or tingling to the upper or lower extremities. 01/25/2023: The patient is postoperative day #1 status post close reduction with insertion of intertrochanteric nail of the right hip. She is doing well from an orthopedic standpoint. She did has had some urinary retention. She has been straight cathed twice with more than 500 mL obtained each time. She is having minimal pain at this time. Vital signs and labs are stable. A 20 01/18/2023: The patient is postoperative day #2 status post close reduction with insertion of intertrochanteric nail of the right hip. She is stable from an orthopedic standpoint. She did get up in a chair with nursing staff yesterday. She has no new complaints or concerns today. Hemoglobin is 8.0. She is hemodynamically stable. Heart rate is up slightly. Objective - Vital Signs Vital signs: Vital Signs Temp 99.1 F 01/26/23 00:15 Pulse 118 H 01/26/23 00:15 Resp 18 01/26/23 00:15 BP 108/54 01/26/23 00:15 Pulse Ox 97 01/26/23 00:15 FiO2 Intake & Output 01/25/23 01/26/23 01/26/23 18:59 06:59 18:59 Output Total 300 Balance -300 Output: Urine 300 Other: Voiding Method External Catheter # Voids 1 1 - Exam This is a pleasant 87-year-old female in no acute distress. She is alert and oriented 3. Family is present at bedside. Exam of the head neck reveal no obvious deformity. She has good cervical spine motion without difficulty or pain. Exam of the upper extremities reveals full range of motion of the shoulders with minimal pain. Neurovascular status the upper extremities is intact. Exam of the lower extremities reveals that her right hip dressing is clean, dry and intact. She has full foot and ankle motion bilaterally without difficulty or pain. Homans is negative bilaterally. There is dressing intact over both lower legs. Neurovascular status to the lower extremities is intact. - Labs CBC & Chem 7: 01/24/23 07:40 01/24/23 07:40 Assessment and Plan (1) Atrial fibrillation Current Visit: Yes Status: Acute Code(s): I48.91 - UNSPECIFIED ATRIAL FIBRILLATION SNOMED Code(s): 88594099 (2) Chronic obstructive pulmonary disease (COPD) Current Visit: Yes Status: Acute Code(s): J44.9 - CHRONIC OBSTRUCTIVE PULMONARY DISEASE, UNSPECIFIED SNOMED Code(s): 14756985 (3) Chronic wound of extremity Current Visit: Yes Status: Acute Code(s): FPQ1563 - SNOMED Code(s): 56483927053010 (4) Fall Current Visit: Yes Status: Acute Code(s): W19.XXXA - UNSPECIFIED FALL, INITIAL ENCOUNTER SNOMED Code(s): 3724909 (5) Intertrochanteric fracture of right femur Current Visit: Yes Status: Acute Code(s): S72.141A - DISPLACED INTERTROCHANTERIC FRACTURE OF RIGHT FEMUR, INIT SNOMED Code(s): 462801280 (6) Pubic ramus fracture Current Visit: Yes Status: Acute Code(s): S32.599A - OTH FRACTURE OF UNSP PUBIS, INIT ENCNTR FOR CLOSED FRACTURE SNOMED Code(s): 45158453 Plan: The clinical and radiographic findings are discussed with the patient and her family. I have consulted wound care for evaluation of her lower extremity wounds. She generally sees wound care weekly. She may be up with assistance. She is toe-touch weightbearing with lower extremity. Anticipate discharge to inpatient rehab when cleared medically.
[2023-01-26] MEDS: MULTIVITAMINS, THERA 1 EACH TAB PO SCH (08:30)
[2023-01-26] MEDS: CHOLECALCIFEROL 25 MCG (1000 IU) TABLET PO SCH (08:30)
[2023-01-26] MEDS: ASCORBIC ACID 500 MG TAB PO SCH (08:30)
[2023-01-26] MEDS: METOPROLOL TARTRATE 25 MG TAB PO SCH (08:30)
[2023-01-26] MEDS: DONEPEZIL 10 MG TAB PO SCH (08:30)
[2023-01-26] MEDS: TAMSULOSIN 0.4 MG CAP.ER.24H PO SCH (08:30)
[2023-01-26] MEDS: ZINC SULFATE 220 MG CAP PO SCH (08:30)
[2023-01-26 09:14] LABS: Basophils # (A) 0.02 X 10*3/uL (0.00-0.10); Basophils % (A) 0.3 %; Eosinophils # (A) 0.16 X 10*3/uL (0.04-0.35); Eosinophils % (A) 2.8 %; HCT 19.8 % (37.2-46.3); HGB 6.2 d/dL (12.0-15.0); Immature Platelet Fraction 6.1 % (1.1-6.1); Lymphocytes # (A) 0.87 X 10*3/uL (0.90-5.00); Lymphocytes % (A) 15.2 %; MCH 29.7 pg (27.0-32.0); MCHC 31.3 d/dL (32.0-37.0); MCV 94.7 FL (80.0-97.0); Monocytes # (A) 0.68 X 10*3/uL (0.20-1.00); Monocytes % (A) 11.8 %; NRBC Per 100 WBC 0 X 10*3/uL (0.00-0.01); Neutrophils # (A) 3.99 X 10*3/uL (1.80-7.70); Neutrophils % (A) 69.6 %; Platelet Count 66 X 10*3/uL (140-440); RBC 2.09 X 10*6/uL (4.10-5.20); RDW 15.4 % (11.5-14.5); WBC 5.74 X 10*3/uL (4.50-10.00)
[2023-01-26 09:18] LABS: BUN/Creat Ratio 23.56 Ratio (12.00-20.00); Blood Urea Nitrogen 21.2 mg/dL (9.0-27.0); Calcium 7.9 mg/dL (8.7-10.3); Carbon Dioxide 26.6 mmol/L (21.6-31.8); Chloride 104 mmol/L (96-109); Glucose 101 mg/dL (70-110); Potassium 3.7 mmol/L (3.5-5.5); Sodium 137 mmol/L (135-145)
--- NOTE | 2023-01-26 11:00 | P.PN ---
Subjective HISTORY OF PRESENT ILLNESS: This is an 87-year-old female who is status post closed reduction with insertion of intertrochanteric nail right hip. Patient examined this morning at the bedside. Patient's family is present. Patient denies chest pain or pressure. She denies shortness of breath. Hemoglobin today 6.2. Patient is slightly tachycardic. PHYSICAL EXAM: VITAL SIGNS: Reviewed. GENERAL: Well-developed in no acute distress. NECK: Supple. No JVD or thyromegaly LUNGS: Respirations even and unlabored. Lungs essentially clear to auscultation bilaterally. HEART: Irregular rate and rhythm. S1 and S2 heard. EXTREMITIES: Normal range of motion. No clubbing or cyanosis. Peripheral pulses intact. No lower extremity edema ASSESSMENT: Right hip fracture status post mechanical fall Chronic atrial fibrillation Acute anemia Sinus tachycardia, secondary to above Aortic stenosis with previous TAVR Nonobstructive coronary artery disease COPD Hypertension Chronic right lower extremity nonhealing wound PLAN: Continue current cardiac medications Patient to receive RBC transfusion today secondary to anemia. Hold anticoagulation at this time and resume when medically appropriate No further inpatient recommendations from a cardiology perspective We will sign off. Please reconsult if needed. Nurse practitioner note has been reviewed by physician. Signing provider agrees with the documented findings, assessment, and plan of care. Objective - Vital Signs Vital signs: Vital Signs Temp 98.3 F 01/26/23 07:41 Pulse 94 01/26/23 07:41 Resp 16 01/26/23 07:41 BP 108/71 01/26/23 07:41 Pulse Ox 97 01/26/23 07:41 FiO2 Intake & Output 01/25/23 01/26/23 01/26/23 18:59 06:59 18:59 Output Total 300 Balance -300 Output: Urine 300 Other: Voiding Method External Catheter External Catheter # Voids 1 1 - Labs CBC & Chem 7: 01/26/23 06:01 01/26/23 06:01 Labs: Abnormal Lab Results - Last 24 Hours (Table) 01/26/23 01/26/23 01/26/23 Range/Units 06:01 06:01 09:53 RBC 2.09 L (4.10-5.20) X 10*6/uL Hgb 6.2 H* (12.0-15.0) d/dL Hct 19.8 H* (37.2-46.3) % MCHC 31.3 L (32.0-37.0) d/dL RDW 15.4 H (11.5-14.5) % Plt Count 66 L (140-440) X 10*3/uL Lymphocytes # 0.87 L (0.90-5.00) X 10*3/uL BUN/Creatinine Ratio 23.56 H (12.00-20.00) Ratio Calcium 7.9 L (8.7-10.3) mg/dL Crossmatch See Detail
[2023-01-26] MEDS ORDERED: SENNOSIDES-DOCUSATE SODIUM 1 EACH TAB PO PRN (12:14)
[2023-01-26] MEDS: CYCLOBENZAPRINE 5 MG TAB PO PRN (12:28)
--- NOTE | 2023-01-26 12:48 | P.PN ---
Subjective Progress Note Date: 01/26/23 87-year-old female patient being evaluated for a preoperative pulmonary clearance. The patient has a right hip fracture and the patient is going to be taken to the operating room. She is known to have COPD and currently is on oxygen 2 L. Chest x-ray shows no acute abnormalities. She follows up with us in the office. She also has mild nonobstructive coronary artery disease, previous history of aortic stenosis and the patient has undergone a transcatheter aortic valve replacement. She has also chronic itch of fibrillation. On anticoagulation with Eliquis. Her most recent cardiac catheterization was in 2019. She has no overt signs of congestion heart failure. She is hemodynamically stable. She is resting comfortably in bed. She is currently nothing by mouth. She is on 2 L with a pulse ox 98%. She is hemodynamically stable. She is afebrile. The white cell count at 6.4 with a hemoglobin of 8. BUN is 33 with a creatinine of 1.1 and the cognition profile is within normal. LFTs are within normal limits. CAT scan of the brain that was done at time of admission showed no acute abnormalities. She has chronic nonspecific white matter ischemic changes. CAT scan of the cervical spine and the thoracic spine in the lumbar spine was also done and it showed no acute fracture involving the C-spine. She has mild to moderate spondylitic changes and she has extensiveand a mid and lower thoracic spine and chronic L5 vertebral compression in the order of 60%. CAT scan of the pelvis showed comminuted nondisplaced fracture of the proximal right femur. She has bilateral hip OA. She also has a nondisplaced fracture of the right superior and right inferior pubic rami. The patient was given Kcaentra in the emergency department on 01/23/2023. Her pain is under adequate control. She is awake and alert. 01/26/2020, the patient is clinically and hemodynamically stable. She is using the incentive spirometer and she is pulling approximately 1000. She is postop day #1. No respiratory difficulties. She is back on anticoagulation with Eliquis 2.5 mg twice a day. No other significant events overnight. Family the bedside. She remains on normal saline at rate of 75 mL an hour. The patient is currently postop day #1 following an intertrochanteric may placement in the [facility] hip. She was Twice and the patient had more than half a liter of urine output. The patient is seen today 01/26/2023 in follow-up on the regular medical floor. She is currently resting comfortably in bed. Awake and alert in no acute distress. Family is at the bedside. She is maintaining good O2 saturations in the mid 90s on room air. She's been afebrile. Hemodynamically stable. She did have a drop in hemoglobin is 6.2. One unit of packed red blood cells have been ordered. White count 5.7. Platelets 66,000. Sodium 137. Potassium 3.7. Bicarb 27. BUN 21. Creatinine 0.9. She's been initiated on Eliquis. Her pain is well controlled. Postoperative day #2 of her right hip fracture repair. Objective - Vital Signs Vital signs: Vital Signs Temp 98.3 F 01/26/23 07:41 Pulse 94 01/26/23 07:41 Resp 16 01/26/23 07:41 BP 108/71 01/26/23 07:41 Pulse Ox 95 01/26/23 11:02 FiO2 Intake & Output 01/25/23 01/26/23 01/26/23 18:59 06:59 18:59 Output Total 300 600 Balance -300 -600 Output: Urine 300 600 Other: Voiding Method External Catheter External Catheter # Voids 1 1 - Exam Gen. appearance an 87-year-old female, calm and comfortable, awake and alert, currently on room air Head exam was generally normal. There was no scleral icterus or corneal arcus. Mucous membranes were moist. Neck was supple and without jugular venous distension, thyromegaly, or carotid bruits. Carotids were easily palpable bilaterally. There was no adenopathy. Lungs sounds are diminished. Otherwise, there is no wheezing no rhonchi or crackles Heart sounds are irregular, positive S1 and S2 and there is a faint grade 2/6 systolic ejection murmur Abdominal exam revealed normal bowel sounds. The abdomen was soft, non-tender, and without masses, organomegaly, or appreciable enlargement of the abdominal aorta. Extremities revealed a surgical wound over the right knee. The patient has a dry superficial wound in the right lower extremity without any active drainage or cellulitis. Pulses are intact. The surgical sites over the right hip is dry clean and intact Skin shows a wound in the right lower extremity, uninfected, dry Neurologically, the patient is awake and alert and the patient does not have any focal neurological deficit. Cranial nerves are essentially intact. - Labs CBC & Chem 7: 01/26/23 06:01 01/26/23 06:01 Labs: Abnormal Lab Results - Last 24 Hours (Table) 01/26/23 01/26/23 01/26/23 Range/Units 06:01 06:01 09:53 RBC 2.09 L (4.10-5.20) X 10*6/uL Hgb 6.2 H* (12.0-15.0) d/dL Hct 19.8 H* (37.2-46.3) % MCHC 31.3 L (32.0-37.0) d/dL RDW 15.4 H (11.5-14.5) % Plt Count 66 L (140-440) X 10*3/uL Lymphocytes # 0.87 L (0.90-5.00) X 10*3/uL BUN/Creatinine Ratio 23.56 H (12.00-20.00) Ratio Calcium 7.9 L (8.7-10.3) mg/dL Crossmatch See Detail Assessment and Plan Assessment: Right hip fracture secondary to fall, awaiting ORIF, post into the trochanteric nailing and the patient is postop day #2 Anemia with a hemoglobin of 6.2, 1 unit packed red blood cells pending Chronic spondylosis involving the cervical spine in addition to a compression fracture involving the L5 spine with 60% height loss in addition to extensive DISH involving the thoracic spine Chronic atrial fibrillation, currently off anticoagulation and the patient [facility] History of aortic stenosis post transcatheter valve replacement Mild nonocclusive coronary artery disease COPD was currently inactive and stable Anemia of chronic disease, normocytic Acute kidney injury, improving and a creatinine of 0.9 History of right lower extremity wounds, the patient has been followed up at the wound Center Hyperlipidemia Osteoarthritis Plan: The patient was seen and evaluated Labs and medications reviewed Receiving 1 unit of packed red blood cells Continues to work with the incentive spirometer Stable and on room air Plan is for subacute rehab at discharge We'll continue to follow I have personally seen and examined the patient, performed the documentation and the assessment and plan as written. Number of minutes spent on the visit: 10.
--- NOTE | 2023-01-26 13:02 | P.PN ---
Subjective Progress Note Date: 01/26/23 This is a pleasant 87 years old female with multiple medical problems including atrial fibrillation, COPD, diabetes mellitus, hypertension, hyperlipidemia. Problem, osteoarthritis, history of heart valve replacement patient presents because of fall and right shoulder and right hip pain. Patient states that she was in the kitchen and she slipped her coffee, she is not sure exactly what she thinks she slipped in her coffee and fell on the floor, she hit the right side and back of her head and the right side of her body. No loss of consciousness, no chest pain or dyspnea around that time or before. No significant coughing. Patient smokes about 4 cigarettes per day and she was counseled to quit, she declines nicotine patch. No alcohol or illicit drugs. 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 She is not on oxygen at home, she got morphine in the hospital and her oxygen came down to 91% on 2 L oxygen via nasal cannula. No much wheezing on examination but she has mild prolonged expiration. No abdominal symptoms. She has mild headache after she hit the back of her head but no dizziness weakness or numbness in extremities. No diarrhea vomiting. She has some probably poor appetite lately. She follow up with the wound center for her leg wounds, she's been told that they're healing well but of the wound center prescribed her diuretic recently and symptoms then chest pain every half an hour as she states. Patient is afebrile. Rest of vitals looks stable. She is mildly tachypneic about 18 which is within the reference range. Labs reviewed hemoglobin 9.5 which is baseline. Platelet count 106 INR is 1.0. Creatinine 1.3 which is at baseline Liver enzymes not elevated and glucose control. EKG showing atrial fibrillation with rate controlled at [address]-T changes. Little alcohol voltage. CT of the brain: No acute process. Knee x-ray: No acute process pelvic x-ray: Comminuted nondisplaced intertrochanteric fracture proximal right femur Chest x-ray: Chronic changes without acute changes, similar to prior. 01/25/2023 Patient is awake and alert, sitting up in bed, pleasant and relaxed. Pain controlled on the right hip area. No dizziness, no chest pain or dyspnea. Patient creatinine down to 1.1. Vitals stable. Hemoglobin dropped postoperatively 9.5-8 Which Is Expected. Patient Has Minimal Pain at the Right Hip Side Where Dressing in Place and Wound Looks Healing. No Particular Rash Physical therapy evaluation 01/26. Patient seen and examined. Hemoglobin this morning 6.2, no obvious source of bleeding. Ordered 1 unit of packed red blood cell REVIEW OF SYSTEMS: CONSTITUTIONAL: No fever, no malaise,. CARDIOVASCULAR: No chest pain, no palpitations, no syncope. PULMONARY: No shortness of breath, no cough, GASTROINTESTINAL: No diarrhea, no nausea, no vomiting, no abdominal pain. NEUROLOGICAL: No headaches, no weakness, PHYSICAL EXAMINATION: GENERAL: The patient is alert and oriented x3, not in any acute distress. Well developed, well nourished. HEENT: Pupils are round and equally reacting to light. EOMI. No scleral icterus. No conjunctival pallor. Normocephalic, atraumatic. No pharyngeal erythema. No thyromegaly. CARDIOVASCULAR: S1 and S2 present. No murmurs, rubs, or gallops. PULMONARY: Diminished breath sounds at the bases bilaterally ABDOMEN: Soft, nontender, nondistended, normoactive bowel sounds. No palpable organomegaly. MUSCULOSKELETAL: No joint swelling or deformity. Right hip surgical incision seen EXTREMITIES: No cyanosis, clubbing, or pedal edema. NEUROLOGICAL: Gross neurological examination did not reveal any focal deficits. SKIN: No rashes. Assessment and plan Right hip fracture, right intertrochanteric comminuted but not displaced fracture COPD with possible mild acute exacerbation and acute hypoxic respiratory failure Acute blood loss anemia Fall without syncope Nicotine dependence chronic kidney disease stage III Chronic bicytopenia, anemia and thrombocytopenia Monitor vital signs Monitor CBC Monitor CMP Continue pain management per orthopedics Continue DVT prophylaxis per orthopedics Ordered 1 unit of packed red blood cell Encourage use of I-S Aggressive bronchopulmonary hygiene Pulmonology following Labs and medication were reviewed.. Continue same treatment. Continue with symptomatic treatment. Resume home medication. Monitor labs and vitals. DVT and GI prophylaxis. Further recommendations as per clinical course of the patient Dictation was produced using [employer] dictation software. please excuse any grammatical, word or spelling errors. Objective - Vital Signs Vital signs: Vital Signs Temp 98.3 F 01/26/23 07:41 Pulse 94 01/26/23 07:41 Resp 16 01/26/23 07:41 BP 108/71 01/26/23 07:41 Pulse Ox 97 01/26/23 07:41 FiO2 Intake & Output 01/25/23 01/26/23 01/26/23 18:59 06:59 18:59 Output Total 300 Balance -300 Output: Urine 300 Other: Voiding Method External Catheter External Catheter # Voids 1 1 - Labs CBC & Chem 7: 01/26/23 06:01 01/26/23 06:01 Labs: Abnormal Lab Results - Last 24 Hours (Table) 01/26/23 01/26/23 Range/Units 06:01 06:01 RBC 2.09 L (4.10-5.20) X 10*6/uL Hgb 6.2 H* (12.0-15.0) d/dL Hct 19.8 H* (37.2-46.3) % MCHC 31.3 L (32.0-37.0) d/dL RDW 15.4 H (11.5-14.5) % Plt Count 66 L (140-440) X 10*3/uL Lymphocytes # 0.87 L (0.90-5.00) X 10*3/uL BUN/Creatinine Ratio 23.56 H (12.00-20.00) Ratio Calcium 7.9 L (8.7-10.3) mg/dL
[2023-01-26] MEDS: MORPHINE SULFATE 4 MG/ML SYRINGE IV PRN (19:03)
[2023-01-26] MEDS: APIXABAN 2.5 MG TABLET PO SCH (20:47)
[2023-01-26] MEDS: LATANOPROST 0.005% OPHTH DROPS 2.5 ML BTL RIGHT EYE SCH (20:47)
[2023-01-27] MEDS: MORPHINE SULFATE 4 MG/ML SYRINGE IV PRN ×2 (01:30→21:06)
--- NOTE | 2023-01-27 07:15 | CA ---
Transthoracic Echo Report Name: Mary Miranda Age: 87 Gender: F : 1935 Exam Date: 01/26/2023 09:16 Exam Location: [facility] Ht (in): 68 Wt (lb): 155 Ordering Physician: Leonidas Castro MD ([id number]) Attending/Referring Phys: [employer]alking Supervisor Jerome Lozoya Procedure CPT: Indications: severe s/p TAVR Cardiac Hx: Technical Quality: Fair Contrast 1: Total Dose (mL): Contrast 2: Total Dose (mL): MEASUREMENTS (Male / Female) Normal Values 2D ECHO LV Diastolic Diameter PLAX 4.1 cm 4.2 - 5.9 / 3.9 - 5.3 cm LV Systolic Diameter PLAX 2.5 cm IVS Diastolic Thickness 0.9 cm 0.6 - 1.0 / 0.6 - 0.9 cm LVPW Diastolic Thickness 1.2 cm 0.6 - 1.0 / 0.6 - 0.9 cm LV Relative Wall Thickness 0.5 RV Internal Dim ED PLAX 3.9 cm LVOT Diameter 1.7 cm Aortic Root Diameter 2.3 cm LA Systolic Diameter LX 4.4 cm 3.0 - 4.0 / 2.7 - 3.8 cm LV Diastolic Volume MOD BP 44.5 cm??? 67 - 155 / 56 - 104 cm??? LV Systolic Volume MOD BP 15.7 cm??? 22 - 58 / 19 - 49 cm??? LV Ejection Fraction MOD BP 64.7 % >= 55 % LV Cardiac Index MOD BP 1500.2 cm???/min???m??? LV Diastolic Volume MOD 4C 38.1 cm??? LV Systolic Volume MOD 4C 18.5 cm??? LV Ejection Fraction MOD 4C 51.5 % LV Cardiac Index MOD 4C 1023.7 cm???/min???m??? LV Diastolic Length 4C 6.3 cm LV Systolic Length 4C 5.3 cm LV Diastolic Volume MOD 2C 49.2 cm??? LV Systolic Volume MOD 2C 12.1 cm??? LV Ejection Fraction MOD 2C 75.4 % LV Cardiac Index MOD 2C 1931.3 cm???/min???m??? LV Diastolic Length 2C 6.8 cm LV Systolic Length 2C 5.9 cm LA Volume 98.5 cm??? 18 - 58 / 22 - 52 cm??? DOPPLER AV Peak Velocity 146.8 cm/s AV Peak Gradient 8.6 mmHg LVOT Peak Velocity 107.2 cm/s LVOT Peak Gradient 4.6 mmHg AV Area Cont Eq pk 1.6 cm??? MV Peak Velocity 232.1 cm/s MV Peak Gradient 21.5 mmHg MV Mean Velocity 85.5 cm/s MV Mean Gradient 4.7 mmHg MV Velocity Time Integral 45.9 cm MR Peak Velocity 462.9 cm/s MR Peak Gradient 85.7 mmHg MV E' Velocity 8.2 cm/s TR Peak Velocity 405.9 cm/s TR Peak Gradient 65.9 mmHg Right Ventricular Systolic Press 75.9 mmHg PV Peak Velocity 162.3 cm/s PV Peak Gradient 10.5 mmHg FINDINGS Left Ventricle Normal LV size and wall thickness. Left ventricular ejection fraction is estimated at 50-55 %. Right Ventricle Normal right ventricular size. RVSP= 79mmhg. Right Atrium Right atrial dilatation. RA area= 19.2cm2 Left Atrium Left atrial dilatation. LA volue index= 54ml/m2 Mitral Valve Mild to moderate posterior MAC. Mild Mitral thickening. Moderate MR. Aortic Valve HX. TAVR. No aortic valve stenosis or regurgitation. Tricuspid Valve Structurally normal tricuspid valve. Severe TR. Pulmonic Valve Pulmonic valve not well visualized. Trace PI. Pericardium Normal pericardium. Aorta Normal size aortic root . CONCLUSIONS Normal LV systolic function. Ejection fraction is 50-55% Severe mitral annular calcification with moderate mitral regurgitation Transcatheter valve with no stenosis or regurgitation Severe pulmonary hypertension. Mildly dilated right ventricle. Severe tricuspid regurgitation Previewed by: Dr. Frandy Wilson MD (Electronically Signed) Final Date: 27 January 2023 07:15
[2023-01-27 07:27] LABS: Basophils % (A) 0 %; Eosinophils # (A) 0.2 k/uL (0-0.7); Eosinophils % (A) 3 %; HCT 22.4 % (34.0-46.0); HGB 7.6 gm/dL (11.4-16.0); Lymphocytes # (A) 0.8 k/uL (1.0-4.8); Lymphocytes % (A) 15 %; MCH 30.4 pg (25.0-35.0); MCHC 33.7 g/dL (31.0-37.0); MCV 90.1 fL (80.0-100.0); Mean Platelet Volume 9.1; Monocytes # (A) 0.5 k/uL (0-1.0); Monocytes % (A) 8 %; Neutrophils % (A) 72 %; RBC 2.49 m/uL (3.80-5.40); RDW 15.3 % (11.5-15.5); WBC 5.6 k/uL (3.8-10.6)
[2023-01-27 07:43] LABS: ALT 13 U/L (4-34); AST 20 U/L (14-36); African American GFR (CKD) 73 (>60 ml/min/1.73 sqM); Albumin 2.7 g/dL (3.5-5.0); Alkaline Phosphatase 83 U/L (38-126); Anion Gap 5 mmol/L; Blood Urea Nitrogen 20 mg/dL (7-17); Calcium 7.9 mg/dL (8.4-10.2); Carbon Dioxide 25 mmol/L (22-30); Chloride 103 mmol/L (98-107); Globulin 2.6 g/dL; Glucose 102 mg/dL (74-99); Non-African American GFR(CKD) 64 (>60 ml/min/1.73 sqM); Potassium 3.8 mmol/L (3.5-5.1); Sodium 133 mmol/L (137-145); Total Bilirubin 1.2 mg/dL (0.2-1.3); Total Protein 5.3 g/dL (6.3-8.2)
[2023-01-27] MEDS: APIXABAN 2.5 MG TABLET PO SCH ×2 (07:47→20:59)
[2023-01-27] MEDS: TAMSULOSIN 0.4 MG CAP.ER.24H PO SCH (07:47)
[2023-01-27] MEDS: DONEPEZIL 10 MG TAB PO SCH (07:48)
[2023-01-27] MEDS: ASCORBIC ACID 500 MG TAB PO SCH (07:48)
[2023-01-27] MEDS: ATORVASTATIN 40 MG TAB PO SCH (07:48)
[2023-01-27] MEDS: ZINC SULFATE 220 MG CAP PO SCH (07:48)
[2023-01-27] MEDS: METOPROLOL TARTRATE 25 MG TAB PO SCH (07:48)
[2023-01-27] MEDS: MULTIVITAMINS, THERA 1 EACH TAB PO SCH (07:48)
[2023-01-27] MEDS: CHOLECALCIFEROL 25 MCG (1000 IU) TABLET PO SCH (07:48)
[2023-01-27 08:03] LABS: Platelet Count 87 k/uL (150-450)
--- NOTE | 2023-01-27 11:33 | P.CONS ---
History of Present Illness - Reason for Consult Consult date: 01/27/23 wound care - History of Present Illness This is an 87-year-old patient known to the wound care center with a nonhealing ulceration to the right anterior lower extremity. Patient had theraskin applied to the site last Thursday. Ulceration continues to show granulation with nonviable tissue and slough present to the wound bed. The wound edges are attached to the wound base. Ulceration measures approximately 2.5 x 3 x 0.5 cm. Patient will return to the wound care center next week with a plan to reapply theraskin. Review Of Systems: Constitutional: No fever, no chills, no night sweats. No weight change. No weakness, fatigue or lethargy. No daytime sleepiness. Integumentary:reports wounds, no lesions. No rash or pruritus. No unusual bruising. No change in hair or nails. Physical exam: General Appearance: Alert, cooperative, no distress, appears stated age. Skin: See HPI all other Skin color, texture, tugor normal, no rashes or lesions. Neurologic: Alert oriented x3 Assessment: 1. Nonhealing ulceration with fat layer exposure right lower extremity other part 2. Chronic venous hypertension with ulceration and inflammation of right lower extremity Plan: 1. Apply Santyl, saline moistened gauze, dry gauze, rolled back and secured paper tape. Change daily. Patient to return to the wound care center on February 05 at 2:00 Thank you for the consultation any questions please contact the wound care center DNP note has been reviewed and discussed with Dr. Zavala and the impression and plan of care has been directed as dictated. Past Medical History Past Medical History: Atrial Fibrillation, COPD, Diabetes Mellitus, Hyperlipidemia, Hypertension, Memory Impairment, Osteoarthritis (OA) Additional Past Medical History / Comment(s): possible Hiatal Hernia, left neck mass History of Any Multi-Drug Resistant Organisms: None Reported Past Surgical History: Cardiac Valve Replacement, Cholecystectomy, Orthopedic Surgery Additional Past Surgical History / Comment(s): Right knee surgery X5, Hammer Toe surgery, left knee arthroscopy Past Anesthesia/Blood Transfusion Reactions: Previous Problems w/ Anesthesia Additional Past Anesthesia/Blood Transfusion Reaction / Comm: Woke up during last knee surgery. Past Psychological History: No Psychological Hx Reported Smoking Status: Current some day smoker Past Alcohol Use History: Occasional Additional Past Alcohol Use History / Comment(s): 5-7 cigarettes daily since 17 yrs old. Past Drug Use History: None Reported - Past Family History Father Family Medical History: Cancer Additional Family Medical History / Comment(s): Prostate Cancer. Brother(s) Additional Family Medical History / Comment(s): Blood clot from surgery. Medications and Allergies Home Medications Medication Instructions Recorded Confirmed Type Apixaban [Eliquis] 2.5 mg PO BID 10/10/18 01/23/23 History Ascorbic Acid [Vitamin C] 1,000 mg PO DAILY 10/10/18 01/23/23 History Atorvastatin [Lipitor] 40 mg PO Q48H 10/10/18 01/23/23 History Cholecalciferol [Vitamin D3 (25 25 mcg PO DAILY 10/10/18 01/23/23 History Mcg = 1000 Iu)] Fosinopril/Hydrochlorothiazide 1 tab PO DAILY 10/10/18 01/23/23 History [Monopril HCT 10-12.5 mg] Latanoprost/Pf [Latanoprost 0.005% 1 drop RIGHT EYE HS 10/10/18 01/23/23 History Eye Drop] Metoprolol Tartrate [Lopressor] 25 mg PO DAILY 10/10/18 01/23/23 History Multivitamins, Thera [Multivitamin 1 tab PO DAILY 10/10/18 01/23/23 History (formulary)] metFORMIN HCL [metFORMIN HCL ER] 750 mg PO BID 10/10/18 01/23/23 History traMADol HCL [Ultram] 50 mg PO Q6HR PRN 10/10/18 01/23/23 History Diphenoxylate HCl/Atropine 1 - 2 tab PO QID PRN 01/17/20 01/23/23 History [Lomotil 2.5-0.025 mg Tablet] Ferrous Sulfate [Iron] 325 mg PO Q48H 01/17/20 01/23/23 History Furosemide [Lasix] 20 mg PO DAILY PRN 01/17/20 01/23/23 History Zolpidem [Ambien] 10 mg PO HS PRN 01/17/20 01/23/23 History Donepezil [Aricept] 10 mg PO DAILY 12/27/20 01/23/23 History Calcium 1000mg 1 tab PO DAILY 01/23/23 01/23/23 History Co Q-10 100mg 1 tab PO DAILY 01/23/23 01/23/23 History Gabapentin 300 mg PO TID 01/23/23 01/23/23 History Super Beets Heart Chews 2 tab PO W/LUNCH 01/23/23 01/23/23 History Zinc Gluconate [Zinc] 50 mg PO DAILY 01/23/23 01/23/23 History HYDROcodone/APAP 5-325MG [[place] 1 - 2 tab PO Q6HR PRN #28 tab 01/25/23 Rx 5-325] Sennosides-Docusate Sodium 1 tab PO BID #60 tablet 01/25/23 Rx [Senokot-S] Allergies Allergy/AdvReac Type Severity Reaction Status Date / Time Paper Tape Allergy Redness/Itc Uncoded 01/23/23 20:39 erick Physical Exam Vitals: Vital Signs Temp Pulse Pulse Resp BP BP Pulse Ox 01/27/23 06:48 98.5 F 95 16 133/74 94 L 01/27/23 03:29 98.6 F 123 H 20 120/71 91 L 01/26/23 19:52 98.6 F 105 H 18 120/72 94 L 01/26/23 15:24 98.8 F 100 16 124/73 97 01/26/23 14:12 98.2 F 84 16 105/68 01/26/23 13:52 98.2 F 86 18 113/71 01/26/23 13:44 98.0 F 95 16 106/70 97 Intake and Output 01/26/23 01/27/23 01/27/23 22:59 06:59 14:59 Intake Total 1005 Balance 1005 Intake: Oral 720 Blood Product 285 Rc Pheresis As-3 Unit 285 [id number] Other: Voiding Method External Catheter # Voids 2 0 1 # Bowel Movements 1 Results CBC & Chem 7: 01/27/23 06:58 01/27/23 06:58 Labs: Abnormal Lab Results - Last 24 Hours (Table) 01/26/23 01/27/23 01/27/23 Range/Units 09:53 06:58 06:58 RBC 2.49 L (3.80-5.40) m/uL Hgb 7.6 L (11.4-16.0) gm/dL Hct 22.4 L (34.0-46.0) % Plt Count 87 L (150-450) k/uL Lymphocytes # 0.8 L (1.0-4.8) k/uL Sodium 133 L (137-145) mmol/L BUN 20 H (7-17) mg/dL Glucose 102 H (74-99) mg/dL Calcium 7.9 L (8.4-10.2) mg/dL Total Protein 5.3 L (6.3-8.2) g/dL Albumin 2.7 L (3.5-5.0) g/dL Crossmatch See Detail Assessment and Plan (1) Non-pressure chronic ulcer of other part of right lower leg with fat layer exposed Current Visit: Yes Status: Acute Code(s): L97.812 - NON-PRS CHRONIC ULCER OTH PRT R LOW LEG W FAT LAYER EXPOSED SNOMED Code(s): 43955892282324230 (2) Chronic venous hypertension (idiopathic) with ulcer and inflammation of right lower extremity Current Visit: Yes Status: Acute Code(s): I87.331 - CHRONIC VENOUS HTN W ULCER AND INFLAMMATION OF R LOW EXTREM SNOMED Code(s): 032141029462776
[2023-01-27] MEDS: COLLAGENASE 250 UNIT/GM OINTMENT 30 GM TUBE TOPICAL SCH (13:01)
--- NOTE | 2023-01-27 13:45 | P.PN ---
Subjective Progress Note Date: 01/27/23 This is an 87-year-old female who is status post closed reduction with the insertion of intertrochanteric nail right hip. This is postoperative day #3. Patient is seen and evaluated at bedside today and denies any new complaints. Patient did receive 1 unit of blood yesterday and hemoglobin is 7.6 today. Patient denies any lightheadedness or dizziness. Objective - Vital Signs Vital signs: Vital Signs Temp 98.5 F 01/27/23 06:48 Pulse 95 01/27/23 06:48 Resp 16 01/27/23 06:48 BP 133/74 01/27/23 06:48 Pulse Ox 94 L 01/27/23 06:48 FiO2 Intake & Output 01/26/23 01/27/23 01/27/23 18:59 06:59 18:59 Intake Total 1005 Output Total 600 Balance 405 Intake: Oral 720 Blood Product 285 Rc Pheresis As-3 Unit 285 [id number] Output: Urine 600 Other: Voiding Method External Catheter External Catheter # Voids 2 0 1 # Bowel Movements 1 - Exam Vital signs are stable. Patient is in no acute distress and is alert and oriented 3. Calf is soft and nontender to palpation. Dressing is clean, dry, and intact. Patient has full foot and ankle motion without pain or difficulty. Sensation intact. Neurovascular status and circulatory status are intact. - Labs CBC & Chem 7: 01/27/23 06:58 01/27/23 06:58 Labs: Abnormal Lab Results - Last 24 Hours (Table) 01/26/23 01/27/23 01/27/23 Range/Units 09:53 06:58 06:58 RBC 2.49 L (3.80-5.40) m/uL Hgb 7.6 L (11.4-16.0) gm/dL Hct 22.4 L (34.0-46.0) % Plt Count 87 L (150-450) k/uL Lymphocytes # 0.8 L (1.0-4.8) k/uL Sodium 133 L (137-145) mmol/L BUN 20 H (7-17) mg/dL Glucose 102 H (74-99) mg/dL Calcium 7.9 L (8.4-10.2) mg/dL Total Protein 5.3 L (6.3-8.2) g/dL Albumin 2.7 L (3.5-5.0) g/dL Crossmatch See Detail Assessment and Plan Assessment: Status post closed reduction and insertion of intertrochanteric nail right hip. (1) Fall Current Visit: Yes Status: Acute Code(s): W19.XXXA - UNSPECIFIED FALL, INITIAL ENCOUNTER SNOMED Code(s): 3992286 (2) Intertrochanteric fracture of right femur Current Visit: Yes Status: Acute Code(s): S72.141A - DISPLACED INTERTROCHANTERIC FRACTURE OF RIGHT FEMUR, INIT SNOMED Code(s): 318101428 Plan: Continue routine postop care and pain control. Continue anticoagulation with Eliquis. Toe-touch weightbearing with a walker. Daily dressing changes. Appreciate input from medicine. Patient is awaiting ECF placement.
--- NOTE | 2023-01-27 14:38 | P.PN ---
Subjective Progress Note Date: 01/27/23 This is a pleasant 87 years old female with multiple medical problems including atrial fibrillation, COPD, diabetes mellitus, hypertension, hyperlipidemia. Problem, osteoarthritis, history of heart valve replacement patient presents because of fall and right shoulder and right hip pain. Patient states that she was in the kitchen and she slipped her coffee, she is not sure exactly what she thinks she slipped in her coffee and fell on the floor, she hit the right side and back of her head and the right side of her body. No loss of consciousness, no chest pain or dyspnea around that time or before. No significant coughing. Patient smokes about 4 cigarettes per day and she was counseled to quit, she declines nicotine patch. No alcohol or illicit drugs. She sees Dr. Lehman her mail delivery supervisor every 6 months. She is not on oxygen at home, she got morphine in the hospital and her oxygen came down to 91% on 2 L oxygen via nasal cannula. No much wheezing on examination but she has mild prolonged expiration. No abdominal symptoms. She has mild headache after she hit the back of her head but no dizziness weakness or numbness in extremities. No diarrhea vomiting. She has some probably poor appetite lately. She follow up with the wound center for her leg wounds, she's been told that they're healing well but of the wound center prescribed her diuretic recently and symptoms then chest pain every half an hour as she states. Patient is afebrile. Rest of vitals looks stable. She is mildly tachypneic about 18 which is within the reference range. Labs reviewed hemoglobin 9.5 which is baseline. Platelet count 106 INR is 1.0. Creatinine 1.3 which is at baseline Liver enzymes not elevated and glucose control. EKG showing atrial fibrillation with rate controlled at [address]-T changes. Little alcohol voltage. CT of the brain: No acute process. Knee x-ray: No acute process pelvic x-ray: Comminuted nondisplaced intertrochanteric fracture proximal right femur Chest x-ray: Chronic changes without acute changes, similar to prior. 01/25/2023 Patient is awake and alert, sitting up in bed, pleasant and relaxed. Pain controlled on the right hip area. No dizziness, no chest pain or dyspnea. Patient creatinine down to 1.1. Vitals stable. Hemoglobin dropped postoperatively 9.5-8 Which Is Expected. Patient Has Minimal Pain at the Right Hip Side Where Dressing in Place and Wound Looks Healing. No Particular Rash Physical therapy evaluation 01/26. Patient seen and examined. Hemoglobin this morning 6.2, no obvious source of bleeding. Ordered 1 unit of packed red blood cell 01/27. Patient seen and examined. Hemoglobin remained stable after getting 1 unit of blood yesterday, currently 7.6. REVIEW OF SYSTEMS: CONSTITUTIONAL: No fever, no malaise,. CARDIOVASCULAR: No chest pain, no palpitations, no syncope. PULMONARY: No shortness of breath, no cough, GASTROINTESTINAL: No diarrhea, no nausea, no vomiting, no abdominal pain. NEUROLOGICAL: No headaches, no weakness, PHYSICAL EXAMINATION: GENERAL: The patient is alert and oriented x3, not in any acute distress. Well developed, well nourished. HEENT: Pupils are round and equally reacting to light. EOMI. No scleral icterus. No conjunctival pallor. Normocephalic, atraumatic. No pharyngeal erythema. No thyromegaly. CARDIOVASCULAR: S1 and S2 present. No murmurs, rubs, or gallops. PULMONARY: Diminished breath sounds at the bases bilaterally ABDOMEN: Soft, nontender, nondistended, normoactive bowel sounds. No palpable organomegaly. MUSCULOSKELETAL: No joint swelling or deformity. Right hip surgical incision seen EXTREMITIES: No cyanosis, clubbing, or pedal edema. NEUROLOGICAL: Gross neurological examination did not reveal any focal deficits. SKIN: No rashes. Assessment and plan Right hip fracture, right intertrochanteric comminuted but not displaced fracture COPD with possible mild acute exacerbation and acute hypoxic respiratory failure Acute blood loss anemia Fall without syncope Nicotine dependence chronic kidney disease stage III Chronic bicytopenia, anemia and thrombocytopenia Monitor vital signs Monitor CBC Monitor CMP Continue pain management per orthopedics Continue DVT prophylaxis per orthopedics Encourage use of I-S Aggressive bronchopulmonary hygiene Pulmonology following Patient is stable for discharge from medicine perspective Orthopedics on board Labs and medication were reviewed.. Continue same treatment. Continue with symptomatic treatment. Resume home medication. Monitor labs and vitals. DVT and GI prophylaxis. Further recommendations as per clinical course of the patient Dictation was produced using [facility] dictation software. please excuse any grammatical, word or spelling errors. Objective - Vital Signs Vital signs: Vital Signs Temp 98.4 F 01/27/23 14:00 Pulse 110 H 08/29/23 14:00 Resp 16 01/27/23 14:00 BP 114/59 01/27/23 14:00 Pulse Ox 98 01/27/23 14:00 FiO2 Intake & Output 01/26/23 01/27/23 01/27/23 18:59 06:59 18:59 Intake Total 1005 Output Total 600 Balance 405 Intake: Oral 720 Blood Product 285 Rc Pheresis As-3 Unit 285 [id number] Output: Urine 600 Other: Voiding Method External Catheter External Catheter Bedside Commode # Voids 2 0 1 # Bowel Movements 1 - Labs CBC & Chem 7: 01/27/23 06:58 01/27/23 06:58 Labs: Abnormal Lab Results - Last 24 Hours (Table) 01/26/23 01/27/23 01/27/23 Range/Units 09:53 06:58 06:58 RBC 2.49 L (3.80-5.40) m/uL Hgb 7.6 L (11.4-16.0) gm/dL Hct 22.4 L (34.0-46.0) % Plt Count 87 L (150-450) k/uL Lymphocytes # 0.8 L (1.0-4.8) k/uL Sodium 133 L (137-145) mmol/L BUN 20 H (7-17) mg/dL Glucose 102 H (74-99) mg/dL Calcium 7.9 L (8.4-10.2) mg/dL Total Protein 5.3 L (6.3-8.2) g/dL Albumin 2.7 L (3.5-5.0) g/dL Crossmatch See Detail
[2023-01-27] MEDS: HYDROcodone/APAP 5-325MG 1 EACH TAB PO PRN (16:18)
[2023-01-27] MEDS: CYCLOBENZAPRINE 5 MG TAB PO PRN (17:28)
[2023-01-27] MEDS: LATANOPROST 0.005% OPHTH DROPS 2.5 ML BTL RIGHT EYE SCH (20:59)
[2023-01-28] MEDS: METOPROLOL TARTRATE 25 MG TAB PO SCH (09:54)
[2023-01-28] MEDS: ZINC SULFATE 220 MG CAP PO SCH (09:54)
[2023-01-28] MEDS: APIXABAN 2.5 MG TABLET PO SCH (09:54)
[2023-01-28] MEDS: CHOLECALCIFEROL 25 MCG (1000 IU) TABLET PO SCH (09:54)
[2023-01-28] MEDS: MULTIVITAMINS, THERA 1 EACH TAB PO SCH (09:54)
[2023-01-28] MEDS: TAMSULOSIN 0.4 MG CAP.ER.24H PO SCH (09:54)
[2023-01-28] MEDS: DONEPEZIL 10 MG TAB PO SCH (09:54)
[2023-01-28] MEDS: COLLAGENASE 250 UNIT/GM OINTMENT 30 GM TUBE TOPICAL SCH (09:56)
[2023-01-28] MEDS: ASCORBIC ACID 500 MG TAB PO SCH (10:03)
--- NOTE | 2023-01-28 10:37 | P.DS ---
Providers Date of admission: 01/23/23 19:03 Expected date of discharge: 01/28/23 Attending physician: Mukund Mejia Consults: 01/23/23 19:03 Consult Physician Routine Consulting Provider: Derrell Rodriguez Consult Reason/Comments: medical managememnt Do you want consulting provider notified?: Already Contacted 01/24/23 08:25 Consult Physician Urgent Consulting Provider: Heydi Bolivar Consult Reason/Comments: CLEARANCE FOR SURGERY Do you want consulting provider notified?: Yes Primary care physician: George Quesada - [place] Diagnosis(es) (1) Atrial fibrillation Current Visit: Yes Status: Acute (2) Chronic obstructive pulmonary disease (COPD) Current Visit: Yes Status: Acute (3) Chronic wound of extremity Current Visit: Yes Status: Acute (4) Fall Current Visit: Yes Status: Acute (5) Intertrochanteric fracture of right femur Current Visit: Yes Status: Acute (6) Pubic ramus fracture Current Visit: Yes Status: Acute Hospital Course: This is an 87-year-old female who is admitted to [facility] on 01/23/2023 after falling and sustaining injury to the right hip. On exam and x- ray in the emergency department she is found to have an intertrochanteric fracture of the right hip. She is admitted to our service for surgical intervention and care. Patient is taken to surgery for close reduction and insertion of inte rtrochanteric nail of the right hip. The procedure was performed without complication or sequelae. She did have some urinary retention postoperatively. Hemoglobin dropped to 6.2 on postop day #2. She was given 1 unit of packed RBCs. Hemoglobin is pending on postoperative day #4. The patient is doing fairly well postoperatively. Vital signs and labs are stable on postoperative day #4. Patient is discharged to inpatient rehab in stable condition pending medical clearance for discharge. Please see med rec for accurate list of discharge medications. Patient Condition at Discharge: Stable Plan - Discharge Summary Discharge Rx Participant: No New Discharge Prescriptions: New Sennosides-Docusate Sodium [Senokot-S] 1 tab PO BID #60 tablet HYDROcodone/APAP 5-325MG [[place] 5-325] 1 - 2 tab PO Q6HR PRN #28 tab PRN Reason: Pain No Action metFORMIN HCL [metFORMIN HCL ER] 750 mg PO BID Latanoprost/Pf [Latanoprost 0.005% Eye Drop] 1 drop RIGHT EYE HS traMADol HCL [Ultram] 50 mg PO Q6HR PRN PRN Reason: Pain Atorvastatin [Lipitor] 40 mg PO Q48H Fosinopril/Hydrochlorothiazide [Monopril HCT 10-12.5 mg] 1 tab PO DAILY Cholecalciferol [Vitamin D3 (25 Mcg = 1000 Iu)] 25 mcg PO DAILY Ascorbic Acid [Vitamin C] 1,000 mg PO DAILY Apixaban [Eliquis] 2.5 mg PO BID Multivitamins, Thera [Multivitamin (formulary)] 1 tab PO DAILY Metoprolol Tartrate [Lopressor] 25 mg PO DAILY Ferrous Sulfate [Iron] 325 mg PO Q48H Diphenoxylate HCl/Atropine [Lomotil 2.5-0.025 mg Tablet] 1 - 2 tab PO QID PRN PRN Reason: Diarrhea Furosemide [Lasix] 20 mg PO DAILY PRN PRN Reason: Swelling Zolpidem [Ambien] 10 mg PO HS PRN PRN Reason: Insomnia Donepezil [Aricept] 10 mg PO DAILY Zinc Gluconate [Zinc] 50 mg PO DAILY Calcium 1000mg 1 tab PO DAILY Co Q-10 100mg 1 tab PO DAILY Gabapentin 300 mg PO TID Super Beets Heart Chews 2 tab PO W/LUNCH Discharge Medication List Apixaban [Eliquis] 2.5 mg PO BID 10/10/18 [History] Ascorbic Acid [Vitamin C] 1,000 mg PO DAILY 10/10/18 [History] Atorvastatin [Lipitor] 40 mg PO Q48H 10/10/18 [History] Cholecalciferol [Vitamin D3 (25 Mcg = 1000 Iu)] 25 mcg PO DAILY 10/10/18 [History] Fosinopril/Hydrochlorothiazide [Monopril HCT 10-12.5 mg] 1 tab PO DAILY 10/10/18 [History] Latanoprost/Pf [Latanoprost 0.005% Eye Drop] 1 drop RIGHT EYE HS 10/10/18 [History] Metoprolol Tartrate [Lopressor] 25 mg PO DAILY 10/10/18 [History] Multivitamins, Thera [Multivitamin (formulary)] 1 tab PO DAILY 10/10/18 [History] metFORMIN HCL [metFORMIN HCL ER] 750 mg PO BID 10/10/18 [History] traMADol HCL [Ultram] 50 mg PO Q6HR PRN 10/10/18 [History] Diphenoxylate HCl/Atropine [Lomotil 2.5-0.025 mg Tablet] 1 - 2 tab PO QID PRN 01/17/20 [History] Ferrous Sulfate [Iron] 325 mg PO Q48H 01/17/20 [History] Furosemide [Lasix] 20 mg PO DAILY PRN 01/17/20 [History] Zolpidem [Ambien] 10 mg PO HS PRN 01/17/20 [History] Donepezil [Aricept] 10 mg PO DAILY 12/27/20 [History] Calcium 1000mg 1 tab PO DAILY 01/23/23 [History] Co Q-10 100mg 1 tab PO DAILY 01/23/23 [History] Gabapentin 300 mg PO TID 01/23/23 [History] Super Beets Heart Chews 2 tab PO W/LUNCH 01/23/23 [History] Zinc Gluconate [Zinc] 50 mg PO DAILY 01/23/23 [History] HYDROcodone/APAP 5-325MG [[place] 5-325] 1 - 2 tab PO Q6HR PRN #28 tab 01/25/23 [Rx] Sennosides-Docusate Sodium [Senokot-S] 1 tab PO BID #60 tablet 01/25/23 [Rx] Follow up Appointment(s)/Referral(s): Renetta Colindres PAC [PHYSICIAN MOLDED PARTS INSPECTOR] - 3 Weeks Pablo Mantilla, [NON-STAFF] - As Needed George Quesada DO [Primary Care Provider] - 1-2 days Activity/Diet/Wound Care/Special Instructions: Toe-touch weightbearing right lower extremity with walker. May change dressing 5 days postop. May shower. May resume Eliquis. Discharge Disposition: TRANSFER TO SNF/ECF
[2023-01-28 10:57] LABS: Basophils % (A) 0 %; Eosinophils # (A) 0.1 k/uL (0-0.7); Eosinophils % (A) 3 %; HCT 23.6 % (34.0-46.0); Lymphocytes # (A) 0.6 k/uL (1.0-4.8); Lymphocytes % (A) 13 %; MCH 30.5 pg (25.0-35.0); MCV 89.5 fL (80.0-100.0); Mean Platelet Volume 8.5; Monocytes # (A) 0.4 k/uL (0-1.0); Monocytes % (A) 8 %; Neutrophils # (A) 3.8 k/uL (1.3-7.7); Neutrophils % (A) 75 %; Platelet Count 106 k/uL (150-450); RBC 2.64 m/uL (3.80-5.40); RDW 15.1 % (11.5-15.5); WBC 5.1 k/uL (3.8-10.6)
--- NOTE | 2023-01-28 13:40 | P.PN ---
Subjective Progress Note Date: 01/28/23 This is a pleasant 87 years old female with multiple medical problems including atrial fibrillation, COPD, diabetes mellitus, hypertension, hyperlipidemia. Problem, osteoarthritis, history of heart valve replacement patient presents because of fall and right shoulder and right hip pain. Patient states that she was in the kitchen and she slipped her coffee, she is not sure exactly what she thinks she slipped in her coffee and fell on the floor, she hit the right side and back of her head and the right side of her body. No loss of consciousness, no chest pain or dyspnea around that time or before. No significant coughing. Patient smokes about 4 cigarettes per day and she was counseled to quit, she declines nicotine patch. No alcohol or illicit drugs. She sees Dr. Lehman her senior reservations agent every 6 months. She is not on oxygen at home, she got morphine in the hospital and her oxygen came down to 91% on 2 L oxygen via nasal cannula. No much wheezing on examination but she has mild prolonged expiration. No abdominal symptoms. She has mild headache after she hit the back of her head but no dizziness weakness or numbness in extremities. No diarrhea vomiting. She has some probably poor appetite lately. She follow up with the wound center for her leg wounds, she's been told that they're healing well but of the wound center prescribed her diuretic recently and symptoms then chest pain every half an hour as she states. Patient is afebrile. Rest of vitals looks stable. She is mildly tachypneic about 18 which is within the reference range. Labs reviewed hemoglobin 9.5 which is baseline. Platelet count 106 INR is 1.0. Creatinine 1.3 which is at baseline Liver enzymes not elevated and glucose control. EKG showing atrial fibrillation with rate controlled at [address]-T changes. Little alcohol voltage. CT of the brain: No acute process. Knee x-ray: No acute process pelvic x-ray: Comminuted nondisplaced intertrochanteric fracture proximal right femur Chest x-ray: Chronic changes without acute changes, similar to prior. 01/25/2023 Patient is awake and alert, sitting up in bed, pleasant and relaxed. Pain controlled on the right hip area. No dizziness, no chest pain or dyspnea. Patient creatinine down to 1.1. Vitals stable. Hemoglobin dropped postoperatively 9.5-8 Which Is Expected. Patient Has Minimal Pain at the Right Hip Side Where Dressing in Place and Wound Looks Healing. No Particular Rash Physical therapy evaluation 01/26. Patient seen and examined. Hemoglobin this morning 6.2, no obvious source of bleeding. Ordered 1 unit of packed red blood cell 01/27. Patient seen and examined. Hemoglobin remained stable after getting 1 unit of blood yesterday, currently 7.6. 01/28. Patient seen and examined. Repeat hemoglobin this morning is 8. Hip pain is improved REVIEW OF SYSTEMS: CONSTITUTIONAL: No fever, no malaise,. CARDIOVASCULAR: No chest pain, no palpitations, no syncope. PULMONARY: No shortness of breath, no cough, GASTROINTESTINAL: No diarrhea, no nausea, no vomiting, no abdominal pain. NEUROLOGICAL: No headaches, no weakness, PHYSICAL EXAMINATION: GENERAL: The patient is alert and oriented x3, not in any acute distress. Well developed, well nourished. HEENT: Pupils are round and equally reacting to light. EOMI. No scleral icterus. No conjunctival pallor. Normocephalic, atraumatic. No pharyngeal erythema. No thyromegaly. CARDIOVASCULAR: S1 and S2 present. No murmurs, rubs, or gallops. PULMONARY: Diminished breath sounds at the bases bilaterally ABDOMEN: Soft, nontender, nondistended, normoactive bowel sounds. No palpable organomegaly. MUSCULOSKELETAL: No joint swelling or deformity. Right hip surgical incision seen EXTREMITIES: No cyanosis, clubbing, or pedal edema. NEUROLOGICAL: Gross neurological examination did not reveal any focal deficits. SKIN: No rashes. Assessment and plan Right hip fracture, right intertrochanteric comminuted but not displaced fra cture COPD with possible mild acute exacerbation and acute hypoxic respiratory failure Acute blood loss anemia Fall without syncope Nicotine dependence chronic kidney disease stage III Chronic bicytopenia, anemia and thrombocytopenia Monitor vital signs Monitor CBC Monitor CMP Continue pain management per orthopedics Continue DVT prophylaxis per orthopedics Encourage use of I-S Aggressive bronchopulmonary hygiene Pulmonology following Patient is stable for discharge from medicine perspective Orthopedics on board Labs and medication were reviewed.. Continue same treatment. Continue with symptomatic treatment. Resume home medication. Monitor labs and vitals. DVT and GI prophylaxis. Further recommendations as per clinical course of the patient Dictation was produced using [employer]. dictation software. please excuse any grammatical, word or spelling errors. Objective - Vital Signs Vital signs: Vital Signs Temp 98.6 F 01/28/23 07:45 Pulse 90 01/28/23 07:45 Resp 17 01/28/23 07:45 BP 115/75 01/28/23 07:45 Pulse Ox 93 L 01/28/23 07:45 FiO2 Intake & Output 01/27/23 01/28/23 01/28/23 18:59 06:59 18:59 Output Total 800 Balance -800 Output: Urine 800 Other: Voiding Method Bedside Commode External Catheter # Voids 1 1 1 # Bowel Movements 1 1 - Labs CBC & Chem 7: 01/28/23 10:32 01/27/23 06:58 Labs: Abnormal Lab Results - Last 24 Hours (Table) 01/28/23 Range/Units 10:32 RBC 2.64 L (3.80-5.40) m/uL Hgb 8.0 L (11.4-16.0) gm/dL Hct 23.6 L (34.0-46.0) % Plt Count 106 L (150-450) k/uL Lymphocytes # 0.6 L (1.0-4.8) k/uL
[2023-01-28 13:53] VITALS: BP 100/61; PULSE 91; RESP 16; TEMP 98.5
--- NOTE | 2023-02-09 13:03 | P.OP ---
Date of Procedure: 01/24/23 Procedure(s) Performed: PREOPERATIVE DIAGNOSIS: Right hip intertrochanteric fracture. POSTOPERATIVE DIAGNOSIS: Right hip intertrochanteric fracture. OPERATION: Right hip intertrochanteric fracture closed reduction and intramedullary nailing using [employer]ynthe[employer] IT nail. EQUIPMENT MAINTENANCE TECHNICIAN: None ANESTHESIA: General ESTIMATED BLOOD LOSS: 50 mL. COMPLICATIONS: None OPERATIVE FINDINGS: See dictation INDICATIONS: Mary is an 87 year old female with a history of right intertrochanteric fracture. The patient presents to the operating room today for closed reduction and intramedullary nailing. I discussed the risks of surgery in detail as being inclusive of but not limited to: Bleeding, infection, scarring, discomfort, blood vessel and/or nerve damage, need for further surgery, malunion, nonunion, gait disturbance including persistent or permanent limp, limb length inequality, arthritis, hardware failure, blood clot, pulmonary embolism, , and other risks. The consent form has been signed. PROCEDURE: After appropriate consent was obtained, the patient was taken to the operating room and placed in supine position. General anesthetic was administered and after confirmation of adequate anesthesia, the patient was carefully placed in the supine position on the operating room table in the f racture table. The patient was placed up against a well-padded peroneal post. Care was taken to make sure about that all pressure points were adequately padded. The affected leg was placed in boot traction and the unaffected leg was placed in a well leg bangura. Using gentle longitudinal distraction as well as adduction and internal rotation, the fracture was reduced as assessed by AP and lateral C-arm imaging. Once a satisfactory reduction had been obtained, the thigh was prepped and draped in the usual aseptic fashion using ChloraPrep. Ioban drape was used for the case and the patient received intravenous antibiotics prior to incision. Timeout was called, confirming patient identity, side, procedure, and administration of antibiotics and tranexamic acid (1 gram IV). The incision was then created with a #10 blade just proximal to the greater trochanter laterally. It was carried down through skin into the subcutaneous tissues and through fascia. Hemostasis was obtained using electrocautery. The tip of the greater trochanter was palpated and a guide pin was placed at the tip and directed into the femoral shaft as assessed with C-arm imaging. Once optimal pin position had been obtained, a 17 mm reamer was used over the guide pin to create a path for the IT nail. IT nail selected was assembled to the insertion jig on the back table and bushings were checked for accuracy. The nail was then inserted using gentle mallet taps until it was fully deployed. The amount of rotation of the implant was assessed based on the amount of anteversion of the femoral neck. This was rotated to match the patient's femoral neck anteversion and the helical blade guide was placed through the insertion jig and through an incision on the lateral side of the thigh more distal than the first. Once this guide was placed against the lateral cortex of the femur, a guide pin was drilled into the central region of the femoral head and neck as based on AP and lateral C-arm imaging. Once optimal pin position had been obtained, the guidewire was measured and appropriately sized helical blade was selected. The path for the helical blade was prepared using a tapered reamer. The helical blade was then inserted using gentle mallet taps along the guidewire until it was fully deployed. There was no displacement of the fracture during this step. The anti-rotation screw was locked down and the insertion apparatus for the helical blade was removed. The guide pin was then removed. Traction was then removed from the leg and the distal interlock was placed through the jig using standard technique. Finally, the insertion jig for the nail was removed and final C-arm images were taken and saved in both AP and lateral planes. The final x-rays showed satisfactory positioning of the implant and good reduction of the fracture. The top of the nail was plugged with a small quantity of bone wax and the incisions were then thoroughly irrigated with normal saline. Final hemostasis was obtained using electrocautery and closure of the fascia was performed using 0-Vicryl suture. 2-0 Vicryl suture was used in the subcutaneous tissues and eulalio were used for the skin. Sterile dressing was then applied and the patient was carefully removed from the fracture table frame and placed onto the stretcher. The patient tolerated the procedure well. There were no complications and [] of blood loss. The patient was then subsequently transferred to recovery room in stable condition. Sponge and needle counts were correct.
== END 2023-01-28 15:13 | DRG 956 ==
LOC: EC 14:59 → 4SSUR 19:03
PROVIDERS: ADMIT Orthopaedic Surgery; ATTEND Orthopaedic Surgery
PROC: 30283B1 Transfusion of Nonautologous 4-Factor Prothrombin Complex Concentrate into Vein, Percutaneous Approach (ICD-10-PCS; principal; 2023-01-23)
PROC: 0QS636Z Reposition Right Upper Femur with Intramedullary Internal Fixation Device, Percutaneous Approach (ICD-10-PCS; 2023-01-24)
PROC: 30233N1 Transfusion of Nonautologous Red Blood Cells into Peripheral Vein, Percutaneous Approach (ICD-10-PCS; 2023-01-26)
DX: S72.144A Nondisplaced intertrochanteric fracture of right femur, initial encounter for closed fracture (principal); S32.511A Fracture of superior rim of right pubis, initial encounter for closed fracture; J96.01 Acute respiratory failure with hypoxia; N17.9 Acute kidney failure, unspecified; S32.591A Other specified fracture of right pubis, initial encounter for closed fracture; I48.20 Chronic atrial fibrillation, unspecified; M48.56XA Collapsed vertebra, not elsewhere classified, lumbar region, initial encounter for fracture; J44.1 Chronic obstructive pulmonary disease with (acute) exacerbation; D62 Acute posthemorrhagic anemia; L97.812 Non-pressure chronic ulcer of other part of right lower leg with fat layer exposed; I87.331 Chronic venous hypertension (idiopathic) with ulcer and inflammation of right lower extremity; N18.30 Chronic kidney disease, stage 3 unspecified; E11.22 Type 2 diabetes mellitus with diabetic chronic kidney disease; D69.6 Thrombocytopenia, unspecified; M46.94 Unspecified inflammatory spondylopathy, thoracic region; D63.8 Anemia in other chronic diseases classified elsewhere; I12.9 Hypertensive chronic kidney disease with stage 1 through stage 4 chronic kidney disease, or unspecified chronic kidney disease; Z95.2 Presence of prosthetic heart valve; F17.210 Nicotine dependence, cigarettes, uncomplicated; E78.5 Hyperlipidemia, unspecified; M16.0 Bilateral primary osteoarthritis of hip; K11.8 Other diseases of salivary glands; R63.0 Anorexia; M48.02 Spinal stenosis, cervical region; I25.10 Atherosclerotic heart disease of native coronary artery without angina pectoris; M47.812 Spondylosis without myelopathy or radiculopathy, cervical region; M48.14 Ankylosing hyperostosis [Forestier], thoracic region; R33.9 Retention of urine, unspecified; R29.6 Repeated falls; R22.1 Localized swelling, mass and lump, neck; W01.0XXA Fall on same level from slipping, tripping and stumbling without subsequent striking against object, initial encounter; Z79.01 Long term (current) use of anticoagulants; Z79.899 Other long term (current) drug therapy; Z79.84 Long term (current) use of oral hypoglycemic drugs; Z91.048 Other nonmedicinal substance allergy status; Z91.81 History of falling; Z68.23 Body mass index [BMI] 23.0-23.9, adult
CPT/HCPCS: 36415; 70450; 70486; 71045; 72125; 72128; 72131; 72192; 73502; 80048; 80053; 81001; 85025; 85610; 85730; 86850; 86900; 86901; 86920; 93005; 93306; 94760; 96361; 96365; 96375; 96376; 99291

== ENCOUNTER → 2023-05-21 | Outpatient (CLI) | payer MEDICARE ==
[2023-05-21 18:27] LABS: ALT 12 U/L (8-44); AST 18 U/L (13-35); LDL Cholesterol,Calculated 34.5 mg/dL (0.0-131.0); VLDL Calculation 8.66 mg/dL (5.00-40.00)
== END | disposition home or self-care (01) ==
LOC: LABWHC1 13:19
PROVIDERS: ATTEND Nurse Practitioner Adult Health
DX: E78.2 Mixed hyperlipidemia (principal)
CPT/HCPCS: 36415; 80061; 84450; 84460

== ENCOUNTER 2023-07-12 19:57 | Inpatient (IN) | payer MEDICARE ==
[2023-07-12 20:33] LABS: Basophils % (A) 0 %; Eosinophils # (A) 0.1 k/uL (0-0.7); Eosinophils % (A) 1 %; HCT 30.6 % (34.0-46.0); HGB 10.5 gm/dL (11.4-16.0); Lymphocytes # (A) 0.4 k/uL (1.0-4.8); Lymphocytes % (A) 3 %; MCH 30.1 pg (25.0-35.0); MCHC 34.2 g/dL (31.0-37.0); Monocytes # (A) 0.1 k/uL (0-1.0); Monocytes % (A) 1 %; Neutrophils # (A) 12.9 k/uL (1.3-7.7); Neutrophils % (A) 94 %; Platelet Count 127 k/uL (150-450); RBC 3.48 m/uL (3.80-5.40); RDW 14.1 % (11.5-15.5); WBC 13.7 k/uL (3.8-10.6)
[2023-07-12] MEDS: ACETAMINOPHEN IV (For NPO) 1,000 MG in EMPTY BAG 1 BAG IVPB ONE (20:43)
[2023-07-12 20:45] LABS: Appearance,Urine Clear (Clear); Bilirubin,Urine Negative (Negative); Blood,Urine Negative (Negative); Color,Urine Colorless; Glucose,Urine (UA) Negative (Negative); Ketones,Urine Negative (Negative); Leukocyte Esterase,Urine Negative (Negative); Nitrite,Urine Negative (Negative); Protein,Urine Negative (Negative); Specific Gravity,Urine 1.009 (1.001-1.035); Urobilinogen,Urine <2.0 mg/dL (<2.0)
[2023-07-12 20:53] LABS: Amphetamine Screen,Urine Not Detected (NotDetected); Barbiturate Screen,Urine Not Detected (NotDetected); Benzodiazepines Screen,Urine Not Detected (NotDetected); Cocaine Screen,Urine Not Detected (NotDetected); INR 0.9 (<1.2); Methadone Screen, Urine Not Detected (NotDetected); Opiate Screen,Urine Not Detected (NotDetected); Oxycodone Screen, Urine Not Detected (NotDetected); Phencyclidine Screen,Urine Not Detected (NotDetected); Prothrombin Time 10.3 sec (10.0-12.5); Tricyclic Antidepressant,Urine Not Detected (NotDetected); Urn Cannabinoid Scrn Not Detected (NotDetected)
[2023-07-12 20:54] LABS: Partial Thromboplastin Time 21.8 sec (22.0-30.0)
[2023-07-12 20:56] LABS: ALT 18 U/L (4-34); AST 35 U/L (14-36); African American GFR (CKD) 42 (>60 ml/min/1.73 sqM); Albumin 4.6 g/dL (3.5-5.0); Alkaline Phosphatase 177 U/L (38-126); Anion Gap 11 mmol/L; Blood Urea Nitrogen 68 mg/dL (7-17); Calcium 9.7 mg/dL (8.4-10.2); Carbon Dioxide 22 mmol/L (22-30); Chloride 104 mmol/L (98-107); Glucose 116 mg/dL (74-99); Non-African American GFR(CKD) 37 (>60 ml/min/1.73 sqM); Potassium 4.5 mmol/L (3.5-5.1); Sodium 137 mmol/L (137-145); Total Bilirubin 0.9 mg/dL (0.2-1.3); Total Protein 7.8 g/dL (6.3-8.2)
--- NOTE | 2023-07-12 20:56 | ED ---
General Adult HPI - General Chief complaint: Altered Mental Status Stated complaint: Altered Mental Time Seen by Provider: 07/12/23 20:00 Source: patient, family, EMS, RN notes reviewed, old records reviewed Mode of arrival: EMS Limitations: no limitations - History of Present Illness Initial comments: 88-year-old female presenting with acute confusion, patient began having chills and became progressively more confused over the past several hours. 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 She is not currently on antibiotics. No other symptoms including no cough, no abdominal pain. History is obtained somewhat from the patient but also from the patient's family who is at bedside. - Related Data Home Medications Medication Instructions Recorded Confirmed Apixaban [Eliquis] 2.5 mg PO BID 10/10/18 07/12/23 Ascorbic Acid [Vitamin C] 1,000 mg PO DAILY 10/10/18 07/12/23 Atorvastatin [Lipitor] 40 mg PO Q48H 10/10/18 07/12/23 Cholecalciferol [Vitamin D3 (25 25 mcg PO DAILY 10/10/18 07/12/23 Mcg = 1000 Iu)] Latanoprost/Pf [Latanoprost 0.005% 1 drop RIGHT EYE HS 10/10/18 07/12/23 Eye Drop] Multivitamins, Thera [Multivitamin 1 tab PO DAILY 10/10/18 07/12/23 (formulary)] metFORMIN HCL [metFORMIN HCL ER] 750 mg PO BID 10/10/18 07/12/23 Diphenoxylate HCl/Atropine 1 - 2 tab PO QID PRN 01/17/20 07/12/23 [Lomotil 2.5-0.025 mg Tablet] Ferrous Sulfate [Iron] 325 mg PO Q48H 01/17/20 07/12/23 Furosemide [Lasix] 20 mg PO DAILY PRN 01/17/20 07/12/23 Donepezil [Aricept] 10 mg PO DAILY 12/27/20 07/12/23 Calcium 1000mg 1 tab PO DAILY 01/23/23 07/12/23 Co Q-10 100mg 1 tab PO DAILY 01/23/23 07/12/23 Super Beets Heart Chews 2 tab PO W/LUNCH 01/23/23 07/12/23 Zinc Gluconate [Zinc] 50 mg PO DAILY 01/23/23 07/12/23 Fosinopril/Hydrochlorothiazide 1 tab PO DAILY 07/12/23 07/12/23 [Monopril HCT 10-12.5 mg Tab] Gabapentin 300 mg PO TID 07/12/23 07/12/23 Metoprolol Tartrate [Lopressor] 50 mg PO DAILY 07/12/23 07/12/23 Zolpidem [Ambien] 5 mg PO HS PRN 07/12/23 07/12/23 traMADol HCL 50 mg PO BID 07/12/23 07/12/23 Previous Rx's Medication Instructions Recorded Acetaminophen Tab [Tylenol] 650 mg PO Q6HR PRN tab 01/28/23 Allergies Allergy/AdvReac Type Severity Reaction Status Date / Time Paper Tape Allergy Redness/Itc Uncoded 07/12/23 21:52 erick Review of Systems ROS Statement: Those systems with pertinent positive or pertinent negative responses have been documented in the HPI. ROS Other: All systems not noted in ROS Statement are negative. Past Medical History Past Medical History: Atrial Fibrillation, COPD, Diabetes Mellitus, Hyperlipidemia, Hypertension, Memory Impairment, Osteoarthritis (OA) Additional Past Medical History / Comment(s): possible Hiatal Hernia, left neck mass History of Any Multi-Drug Resistant Organisms: None Reported Past Surgical History: Cardiac Valve Replacement, Cholecystectomy, Orthopedic Surgery Additional Past Surgical History / Comment(s): Right knee surgery X5, Hammer Toe surgery, left knee arthroscopy Past Anesthesia/Blood Transfusion Reactions: Previous Problems w/ Anesthesia Additional Past Anesthesia/Blood Transfusion Reaction / Comment(s): Woke up during last knee surgery. Smoking Status: Current some day smoker - Past Family History Father Family Medical History: Cancer Additional Family Medical History / Comment(s): Prostate Cancer. Brother(s) Additional Family Medical History / Comment(s): Blood clot from surgery. General Exam Limitations: no limitations General appearance: lethargic, in distress Head exam: Present: atraumatic, normocephalic Eye exam: Present: normal appearance, PERRL ENT exam: Present: mucous membranes moist Neck exam: Present: normal inspection. Absent: tenderness, meningismus Respiratory exam: Absent: respiratory distress, wheezes Cardiovascular Exam: Present: tachycardia, irregular rhythm GI/Abdominal exam: Present: soft. Absent: distended, tenderness Extremities exam: Present: other (Ulceration right hernandez with purulence. There is surrounding erythema in the right lower extremity and warmth.) Neurological exam: Present: alert. Absent: oriented X3 Skin exam: Present: warm, dry, intact. Absent: cyanosis, diaphoretic Course Vital Signs 07/12/23 07/12/23 07/12/23 20:01 20:30 21:00 Temperature 102.3 F H Pulse Rate 140 H 137 H 112 H Respiratory 24 26 H 22 Rate Blood Pressure 138/94 138/94 133/58 O2 Sat by Pulse 90 L 97 97 Oximetry 07/12/23 07/12/23 07/12/23 21:30 21:59 22:00 Temperature 102.2 F H Pulse Rate 112 H 101 H Respiratory 22 20 Rate Blood Pressure 116/50 85/56 O2 Sat by Pulse 94 L 98 Oximetry 07/12/23 07/12/23 22:30 22:56 Temperature 99.3 F Pulse Rate 97 Respiratory 20 Rate Blood Pressure 101/59 88/44 O2 Sat by Pulse 97 Oximetry Medical Decision Making - Medical Decision Making Was pt. sent in by a medical professional or institution (, PA, [employer], urgent care, hospital, or intermediate...) When possible be specific @ -No Did you speak to anyone other than the patient for history (EMS, parent, family, police, friend...)? What history was obtained from this source @ -No Did you review nursing and triage notes (agree or disagree)? Why? @ -I reviewed and agree with nursing and triage notes Were old charts reviewed (outside hosp., previous admission, EMS record, old EKG, old radiological studies, urgent care reports/EKG's, intermediate records)? Report findings @ -No old charts were reviewed Differential Diagnosis (chest pain, altered mental status, abdominal pain women, abdominal pain men, vaginal bleeding, weakness, fever, dyspnea, syncope, h eadache, dizziness, GI bleed, back pain, seizure, CVA, palpatations, mental health, musculoskeletal)? @ -Differential Altered Mental Status: Hypoglycemia, DKA, hypercapnia, ETOH, overdose, CO poisoning, trauma, myxedema coma, HTN encephalopathy, infection, encephalitis, psychosis, intercranial hemorrhage, hepatic encephalopathy, meningitis, CVA, this is not meant to be an all-inclusive list EKG interpreted by me (3pts min.). @ -EKG: Atrial fibrillation rate of 121 white and QRS consistent with intraventricular conduction delay, possible ischemic changes tremor artifact. QRS duration 131, QTC 398. X-rays interpreted by me (1pt min.). @ -[Chest x-ray negative for focal pneumonia CT interpreted by me (1pt min.). @ -[CT brain negative for intracranial hemorrhage or acute findings. U/S interpreted by me (1pt. min.). @ -None done What testing was considered but not performed or refused? (CT, X-rays, U/S, labs)? Why? @ -None What meds were considered but not given or refused? Why? @ -None Did you discuss the management of the patient with other professionals (professionals i.e. , PA, [employer], lab, RT, psych nurse, social work manager, drop shipment clerk, teacher, pharmaceutical officer, case maker)? Give summary @ -Dr. Genao Was smoking cessation discussed for >3mins.? @ -No Was critical care preformed (if so, how long)? @ -No Were there social determinants of health that impacted care today? How? (Homelessness, low income, unemployed, alcoholism, drug addiction, transportation, low edu. Level, literacy, decrease access to med. care, [facility], rehab)? @ -No Was there de-escalation of care discussed even if they declined (Discuss DNR or withdrawal of care, Hospice)? DNR status @ -[DNR What co-morbidities impacted this encounter? (DM, HTN, Smoking, COPD, CAD, Cancer, CVA, ARF, Chemo, Hep., AIDS, mental health diagnosis, sleep apnea, morbid obesity)? @ -[Atrial fibrillation, chronic right leg wound Was patient admitted / discharged? Hospital course, mention meds given and route, prescriptions, significant lab abnormalities, going to OR and other pertinent info. @ -88-year-old female presenting with acute mental status changes, fever. Patient febrile with chills prior to arrival. She is in A. fib with rapid ventricular response which improves with antipyretics and fluids. She has a leukocytosis with stable chronic anemia. Elevated BUN and creatinine consistent with acute kidney injury. Urinalysis is unremarkable. Viral panel is negative. Chest x-ray is clear without focal pneumonia. Patient's likely source of infection in his right lower leg wound with cellulitis. Undiagnosed new problem with uncertain prognosis? @ -No Drug Therapy requiring intensive monitoring for toxicity (Heparin, Nitro, Insulin, Cardizem)? @ -No Were any procedures done? @ -No Diagnosis/symptom? @ -Fever, confusion, right leg wound and cellulitis Acute, or Chronic, or Acute on Chronic? @ -[acute Uncomplicated (without systemic symptoms) or Complicated (systemic symptoms)? @ -[Complicated Side effects of treatment? @ -No Exacerbation, Progression, or Severe Exacerbation? @ -No Poses a threat to life or bodily function? How? (Chest pain, [place], NH, pneumonia, PE, COPD, DKA, ARF, appy, cholecystitis, CVA, Diverticulitis, Homicidal, Suicidal, threat to staff... and all critical care pts) @ -Yes, sepsis - Lab Data Result diagrams: 07/12/23 20:18 07/12/23 20:18 Lab Results 07/12/23 07/12/23 07/12/23 Range/Units 20:18 20:18 20:18 WBC 13.7 H (3.8-10.6) k/uL RBC 3.48 L (3.80-5.40) m/uL Hgb 10.5 L (11.4-16.0) gm/dL Hct 30.6 L (34.0-46.0) % MCV 88.0 (80.0-100.0) fL MCH 30.1 (25.0-35.0) pg MCHC 34.2 (31.0-37.0) g/dL RDW 14.1 (11.5-15.5) % Plt Count 127 L (150-450) k/uL MPV 9.0 Neutrophils % 94 % Lymphocytes % 3 % Monocytes % 1 % Eosinophils % 1 % Basophils % 0 % Neutrophils # 12.9 H (1.3-7.7) k/uL Lymphocytes # 0.4 L (1.0-4.8) k/uL Monocytes # 0.1 (0-1.0) k/uL Eosinophils # 0.1 (0-0.7) k/uL Basophils # 0.0 (0-0.2) k/uL PT 10.3 (10.0-12.5) sec INR 0.9 (<1.2) APTT 21.8 L (22.0-30.0) sec Sodium (137-145) mmol/L Potassium (3.5-5.1) mmol/L Chloride (98-107) mmol/L Carbon Dioxide (22-30) mmol/L Anion Gap mmol/L BUN (7-17) mg/dL Creatinine (0.52-1.04) mg/dL Est GFR (CKD-EPI)AfAm (>60 ml/min/1.73 sqM) Est GFR (CKD-EPI)NonAf (>60 ml/min/1.73 sqM) Glucose (74-99) mg/dL Plasma Lactic Acid Nino (0.7-2.0) mmol/L Calcium (8.4-10.2) mg/dL Total Bilirubin (0.2-1.3) mg/dL AST (14-36) U/L ALT (4-34) U/L Alkaline Phosphatase (38-126) U/L Troponin I (0.000-0.034) ng/mL Total Protein (6.3-8.2) g/dL Albumin (3.5-5.0) g/dL Urine Color Colorless Urine Appearance Clear (Clear) Urine pH 5.0 (5.0-8.0) Ur Specific [place] 1.009 (1.001-1.035) Urine Protein Negative (Negative) Urine Glucose (UA) Negative (Negative) Urine Ketones Negative (Negative) Urine Blood Negative (Negative) Urine Nitrite Negative (Negative) Urine Bilirubin Negative (Negative) Urine Urobilinogen <2.0 (<2.0) mg/dL Ur Leukocyte Esterase Negative (Negative) Urine Opiates Screen Not Detected (NotDetected) Ur Oxycodone Screen Not Detected (NotDetected) Urine Methadone Screen Not Detected (NotDetected) Ur Barbiturates Screen Not Detected (NotDetected) U Tricyclic Antidepress Not Detected (NotDetected) Ur Phencyclidine Scrn Not Detected (NotDetected) Ur Amphetamines Screen Not Detected (NotDetected) U Methamphetamines Scrn Not Detected (NotDetected) U Benzodiazepines Scrn Not Detected (NotDetected) Urine Cocaine Screen Not Detected (NotDetected) U Marijuana (THC) Screen Not Detected (NotDetected) Influenza Type A (PCR) (Not Detectd) Influenza Type B (PCR) (Not Detectd) RSV (PCR) (Not Detectd) SARS-CoV-2 (PCR) (Not Detectd) 07/12/23 07/12/23 07/12/23 Range/Units 20:18 20:18 20:18 WBC (3.8-10.6) k/uL RBC (3.80-5.40) m/uL Hgb (11.4-16.0) gm/dL Hct (34.0-46.0) % MCV (80.0-100.0) fL MCH (25.0-35.0) pg MCHC (31.0-37.0) g/dL RDW (11.5-15.5) % Plt Count (150-450) k/uL MPV Neutrophils % % Lymphocytes % % Monocytes % % Eosinophils % % Basophils % % Neutrophils # (1.3-7.7) k/uL Lymphocytes # (1.0-4.8) k/uL Monocytes # (0-1.0) k/uL Eosinophils # (0-0.7) k/uL Basophils # (0-0.2) k/uL PT (10.0-12.5) sec INR (<1.2) APTT (22.0-30.0) sec Sodium 137 (137-145) mmol/L Potassium 4.5 (3.5-5.1) mmol/L Chloride 104 (98-107) mmol/L Carbon Dioxide 22 (22-30) mmol/L Anion Gap 11 mmol/L BUN 68 H (7-17) mg/dL Creatinine 1.32 H (0.52-1.04) mg/dL Est GFR (CKD-EPI)AfAm 42 (>60 ml/min/1.73 sqM) Est GFR (CKD-EPI)NonAf 37 (>60 ml/min/1.73 sqM) Glucose 116 H (74-99) mg/dL Plasma Lactic Acid Nino (0.7-2.0) mmol/L Calcium 9.7 (8.4-10.2) mg/dL Total Bilirubin 0.9 (0.2-1.3) mg/dL AST 35 (14-36) U/L ALT 18 (4-34) U/L Alkaline Phosphatase 177 H (38-126) U/L Troponin I <0.012 (0.000-0.034) ng/mL Total Protein 7.8 (6.3-8.2) g/dL Albumin 4.6 (3.5-5.0) g/dL Urine Color Urine Appearance (Clear) Urine pH (5.0-8.0) Ur Specific [place] (1.001-1.035) Urine Protein (Negative) Urine Glucose (UA) (Negative) Urine Ketones (Negative) Urine Blood (Negative) Urine Nitrite (Negative) Urine Bilirubin (Negative) Urine Urobilinogen (<2.0) mg/dL Ur Leukocyte Esterase (Negative) Urine Opiates Screen (NotDetected) Ur Oxycodone Screen (NotDetected) Urine Methadone Screen (NotDetected) Ur Barbiturates Screen (NotDetected) U Tricyclic Antidepress (NotDetected) Ur Phencyclidine Scrn (NotDetected) Ur Amphetamines Screen (NotDetected) U Methamphetamines Scrn (NotDetected) U Benzodiazepines Scrn (NotDetected) Urine Cocaine Screen (NotDetected) U Marijuana (THC) Screen (NotDetected) Influenza Type A (PCR) Not Detected (Not Detectd) Influenza Type B (PCR) Not Detected (Not Detectd) RSV (PCR) Not Detected (Not Detectd) SARS-CoV-2 (PCR) Not Detected (Not Detectd) 07/12/23 Range/Units 21:06 WBC (3.8-10.6) k/uL RBC (3.80-5.40) m/uL Hgb (11.4-16.0) gm/dL Hct (34.0-46.0) % MCV (80.0-100.0) fL MCH (25.0-35.0) pg MCHC (31.0-37.0) g/dL RDW (11.5-15.5) % Plt Count (150-450) k/uL MPV Neutrophils % % Lymphocytes % % Monocytes % % Eosinophils % % Basophils % % Neutrophils # (1.3-7.7) k/uL Lymphocytes # (1.0-4.8) k/uL Monocytes # (0-1.0) k/uL Eosinophils # (0-0.7) k/uL Basophils # (0-0.2) k/uL PT (10.0-12.5) sec INR (<1.2) APTT (22.0-30.0) sec Sodium (137-145) mmol/L Potassium (3.5-5.1) mmol/L Chloride (98-107) mmol/L Carbon Dioxide (22-30) mmol/L Anion Gap mmol/L BUN (7-17) mg/dL Creatinine (0.52-1.04) mg/dL Est GFR (CKD-EPI)AfAm (>60 ml/min/1.73 sqM) Est GFR (CKD-EPI)NonAf (>60 ml/min/1.73 sqM) Glucose (74-99) mg/dL Plasma Lactic Acid Nino 1.1 (0.7-2.0) mmol/L Calcium (8.4-10.2) mg/dL Total Bilirubin (0.2-1.3) mg/dL AST (14-36) U/L ALT (4-34) U/L Alkaline Phosphatase (38-126) U/L Troponin I (0.000-0.034) ng/mL Total Protein (6.3-8.2) g/dL Albumin (3.5-5.0) g/dL Urine Color Urine Appearance (Clear) Urine pH (5.0-8.0) Ur Specific [place] (1.001-1.035) Urine Protein (Negative) Urine Glucose (UA) (Negative) Urine Ketones (Negative) Urine Blood (Negative) Urine Nitrite (Negative) Urine Bilirubin (Negative) Urine Urobilinogen (<2.0) mg/dL Ur Leukocyte Esterase (Negative) Urine Opiates Screen (NotDetected) Ur Oxycodone Screen (NotDetected) Urine Methadone Screen (NotDetected) Ur Barbiturates Screen (NotDetected) U Tricyclic Antidepress (NotDetected) Ur Phencyclidine Scrn (NotDetected) Ur Amphetamines Screen (NotDetected) U Methamphetamines Scrn (NotDetected) U Benzodiazepines Scrn (NotDetected) Urine Cocaine Screen (NotDetected) U Marijuana (THC) Screen (NotDetected) Influenza Type A (PCR) (Not Detectd) Influenza Type B (PCR) (Not Detectd) RSV (PCR) (Not Detectd) SARS-CoV-2 (PCR) (Not Detectd) Disposition Clinical Impression: Chronic wound of extremity, Altered mental status, Delirium due to general medical condition, Cellulitis Disposition: ADMITTED IP TO THIS HOSP Condition: Serious Is patient prescribed a controlled substance at d/c from ED?: No Time of Disposition: 23:21
--- NOTE | 2023-07-12 21:12 | XR ---
EXAMINATION TYPE: XR chest 2V DATE OF EXAM: 07/12/2023 9:02 PM CLINICAL INDICATION:Female, 88 years old with history of altered mental status; [facility] COMPARISON: 01/23/2023 TECHNIQUE: XR chest 2V. Frontal and lateral views of the chest.. FINDINGS: Lines/Tubes/Devices: EKG leads overlie the chest. No indwelling lines are seen. Heart/mediastinum: Heart size is stable, appears mildly to moderately enlarged. Mediastinum is stabl e. Partially calcified aorta. Pulmonary vascularity: Not increased, Lungs/Pleura: Coarsening of interstitial lung markings redemonstrated, likely representing chronic ch anges. No focal airspace disease, pleural effusion, or pneumothorax. Musculoskeletal: No acute osseous abnormality demonstrated in the limits of the exam. Osteopenia and diffuse degenerative changes, including the shoulders and dorsal spine. Other findings: Surgical clips in the right upper abdomen likely from cholecystectomy. IMPRESSION: No acute findings, or significant interval change.
[2023-07-12] MEDS: SODIUM CHLORIDE 0.9% 500 ML 500 ML IV ONE ×3 (21:14→23:06)
--- NOTE | 2023-07-12 21:20 | CT ---
EXAMINATION TYPE: CT brain wo con CT DLP: 1183.4 mGycm, Automated exposure control for dose reduction was used. DATE OF EXAM: 07/12/2023 8:59 PM COMPARISON: CT head 01/23/2023. CLINICAL INDICATION:Female, 88 years old with history of Altered mental status; PHH, AMS. Confusion s tarting around 5pm today. Fever. TECHNIQUE: Axial CT images of the brain were obtained with coronal and sagittal reformats created and reviewed. Contrast used: None. Oral contrast used: None. FINDINGS: Extra-axial spaces: No abnormal extra-axial fluid collections. Ventricular system: Dilatation in proportion to cerebral atrophy. Cerebral parenchyma: No acute intraparenchymal hemorrhage. No loss of gonzalez-white matter distinction t o suggest acute territorial infarction. Moderate patchy hypoattenuation of the white matter, nonspeci fic but most likely chronic ischemic changes in this age group. There is moderate generalized atrophy . Cerebellum: Unremarkable. Mass effect: No evidence of midline shift. Intracranial vasculature: Atherosclerotic calcifications of the intracranial vessels. Soft tissues: Small foci of low-attenuation in the soft tissues lateral and superior to the right orb it, could be gas related to trauma, correlate clinically. Calvarium/osseous structures: No evidence of calvarial fracture. Paranasal sinuses and mastoid air cells: Clear. Mild nasal septal deviation to the right. Visualized orbits: Orbital contents are intact. Bilateral aphakia redemonstrated. MRI is more sensitive for detecting acute processes such as infarct, and may be considered if clinica lly warranted. IMPRESSION: No CT evidence of an acute intracranial abnormality. Moderate atrophy and chronic microvascular ischemic changes.
[2023-07-12] MEDS: SODIUM CHLORIDE 0.9% 1,000 ML IV SCH (21:59)
[2023-07-12] MEDS ORDERED: NALOXONE 0.4 MG/ML 1 ML VIAL IV PRN (22:17)
[2023-07-12] MEDS: COLLAGENASE 250 UNIT/GM OINTMENT 30 GM TUBE TOPICAL SCH (22:30)
[2023-07-13] MEDS ORDERED: VANCOMYCIN IV PER PHARMACY 1 EACH MISC MISCELLANE PRN (00:24)
[2023-07-13 01:14] LABS: Glucose,Whole Blood 131 mg/dL (70-110)
[2023-07-13] MEDS: VANCOMYCIN 1,500 MG in SODIUM CHLORIDE 0.9% 500 ML 500 ML IVPB STA (02:03)
--- NOTE | 2023-07-13 02:46 | P.HPIM ---
History of Present Illness H&P Date: 07/12/23 Patient is a pleasant 88-year-old female with a PMH of type II DM complicated by peripheral neuropathy and chronic right lower extremity nonhealing ulcer,, A-fib on Eliquis, COPD, hyperlipidemia, hypertension who was brought to the emergency room by her family members due to concerns for confusion and fever. As per the family at the bedside, the patient suddenly became confused at around 6 PM and subsequently began having chills. There were no additional complaints as noted by the family or the patient. Patient was confused at the time of interview, oriented only to self, reported feeling feverish with some chills but denies any additional complaints. Denied experiencing cough, headaches, visual disturbances, neck pain, abdominal discomfort, urinary complaints, lower extremity swelling, lower extremity pain. Family reports that patient has previously taken antibiotics multiple times for her RLE wound for which she has been following at the wound care clinic weekly for the past several years. A CT brain in the emergency room was unremarkable. Chest x-ray was also unremarkable. EKG revealed A-fib with RVR at 121 bpm with intraventricular conduction delay at 121 bpm as reviewed by me. Upon arrival to the ED, the patient's vitals were temperature 102.3 F, pulse 140, BP 138/94, and SpO2 90% on room air. Laboratory evaluation was remarkable for leukocytosis of 13.7, hemoglobin 10.5, BUN 68, creatinine 1.32 (baseline 0.8), lactic acid 1.1, troponin less than 0.012, UA unremarkable, urine toxicology negative, and respiratory viral panel negative. ED documentation reviewed and case discussed with ED provider. Review of systems: Pertinent positives and negatives as discussed in HPI, a complete review of systems was performed and all other systems are negative. Physical examination: Vital signs reviewed General: non toxic, no distress, appears at stated age, normal weight Derm: 6 cm circular right anterior hernandez ulcer noted with a somewhat purulent base and mild surrounding erythema, warm Head: atraumatic, normocephalic, symmetric Eyes: EOMI, no lid lag, anicteric sclera, pupils equal round reactive to light ENT: Nose and ears atraumatic Neck: No cervical lymphadenopathy, trachea midline, supple Mouth: no lip lesion, mucus membranes moist Cardiovascular: S1S2 reg, no murmur, positive dorsalis pedis pulse bilateral, no edema Lungs: CTA bilateral, no rhonchi, no rales, no accessory muscle use Abdominal: soft, nontender to palpation, no guarding Ext: muscle strength 4 out of 5 in all 4 extremities grossly, no gross muscle atrophy, no contractures, Neuro: CN II-XI grossly intact, no gross focal neuro deficits, absent nuchal rigidity Psych: Alert, oriented to person only, but answering questions appropriately and following directions Assessment: Sepsis, likely secondary to right lower extremity ulcer Altered mental status, likely toxic encephalopathy due to ongoing sepsis MAE Chronic conditions: A-fib, COPD, hypertension, hyperlipidemia, type II DM Imaging: A CT brain in the emergency room was unremarkable. Chest x-ray was also unremarkable. EKG revealed A-fib with RVR at 121 bpm with intraventricular conduction delay at 121 bpm as reviewed by me. Data Review: Laboratory evaluation was remarkable for leukocytosis of 13.7, hemoglobin 10.5, BUN 68, creatinine 1.32 (baseline 0.8), lactic acid 1.1, troponin less than 0.012, UA unremarkable, urine toxicology negative, and respiratory viral panel negative. Plan: Continue with empiric antibiotic coverage with ceftriaxone and vancomycin Infectious disease consulted Follow-up wound cultures Continue with IV fluids with normal saline 130 cc/h Cardiac monitoring Continue remaining home medications DVT prophylaxis: Eliquis The patient is admitted with an anticipated greater than 2 midnight stay for evaluation of sepsis CODE STATUS: No Code Discussed with: Patient, sons, daughters in law Anticipated discharge place: Home Past Medical History Past Medical History: Atrial Fibrillation, COPD, Diabetes Mellitus, Hyperlipidemia, Hypertension, Memory Impairment, Osteoarthritis (OA) Additional Past Medical History / Comment(s): possible Hiatal Hernia, left neck mass History of Any Multi-Drug Resistant Organisms: None Reported Past Surgical History: Cardiac Valve Replacement, Cholecystectomy, Orthopedic Surgery Additional Past Surgical History / Comment(s): Right knee surgery X5, Hammer Toe surgery, left knee arthroscopy Past Anesthesia/Blood Transfusion Reactions: Previous Problems w/ Anesthesia Additional Past Anesthesia/Blood Transfusion Reaction / Comment(s): Woke up during last knee surgery. Smoking Status: Current some day smoker - Past Family History Father Family Medical History: Cancer Additional Family Medical History / Comment(s): Prostate Cancer. Brother(s) Additional Family Medical History / Comment(s): Blood clot from surgery. Medications and Allergies Home Medications Medication Instructions Recorded Confirmed Type Apixaban [Eliquis] 2.5 mg PO BID 10/10/18 07/12/23 History Ascorbic Acid [Vitamin C] 1,000 mg PO DAILY 10/10/18 07/12/23 History Atorvastatin [Lipitor] 40 mg PO Q48H 10/10/18 07/12/23 History Cholecalciferol [Vitamin D3 (25 25 mcg PO DAILY 10/10/18 07/12/23 History Mcg = 1000 Iu)] Latanoprost/Pf [Latanoprost 0.005% 1 drop RIGHT EYE HS 10/10/18 07/12/23 History Eye Drop] Multivitamins, Thera [Multivitamin 1 tab PO DAILY 10/10/18 07/12/23 History (formulary)] metFORMIN HCL [metFORMIN HCL ER] 750 mg PO BID 10/10/18 07/12/23 History Diphenoxylate HCl/Atropine 1 - 2 tab PO QID PRN 01/17/20 07/12/23 History [Lomotil 2.5-0.025 mg Tablet] Ferrous Sulfate [Iron] 325 mg PO Q48H 01/17/20 07/12/23 History Furosemide [Lasix] 20 mg PO DAILY PRN 01/17/20 07/12/23 History Donepezil [Aricept] 10 mg PO DAILY 12/27/20 07/12/23 History Calcium 1000mg 1 tab PO DAILY 01/23/23 07/12/23 History Co Q-10 100mg 1 tab PO DAILY 01/23/23 07/12/23 History Super Beets Heart Chews 2 tab PO W/LUNCH 01/23/23 07/12/23 History Zinc Gluconate [Zinc] 50 mg PO DAILY 01/23/23 07/12/23 History Acetaminophen Tab [Tylenol] 650 mg PO Q6HR PRN tab 01/28/23 07/12/23 Rx Fosinopril/Hydrochlorothiazide 1 tab PO DAILY 07/12/23 07/12/23 History [Monopril HCT 10-12.5 mg Tab] Gabapentin 300 mg PO TID 07/12/23 07/12/23 History Metoprolol Tartrate [Lopressor] 50 mg PO DAILY 07/12/23 07/12/23 History Zolpidem [Ambien] 5 mg PO HS PRN 07/12/23 07/12/23 History traMADol HCL 50 mg PO BID 07/12/23 07/12/23 History Allergies Allergy/AdvReac Type Severity Reaction Status Date / Time Paper Tape Allergy Redness/Itc Uncoded 07/12/23 21:52 erick Physical Exam Vitals: Vital Signs Temp Pulse Resp BP Pulse Ox 07/13/23 02:00 99.3 F 07/13/23 00:00 96 20 87/47 97 07/12/23 23:45 98 18 92/43 100 07/12/23 23:30 104 H 20 99/42 100 07/12/23 23:15 98 20 127/75 100 07/12/23 23:00 102 H 20 85/52 98 07/12/23 22:56 99.3 F 88/44 07/12/23 22:30 97 20 101/59 97 07/12/23 22:00 101 H 20 85/56 98 07/12/23 21:59 102.2 F H 07/12/23 21:30 112 H 22 116/50 94 L 07/12/23 21:00 112 H 22 133/58 97 07/12/23 20:30 137 H 26 H 138/94 97 07/12/23 20:01 102.3 F H 140 H 24 138/94 90 L Intake and Output 07/12/23 07/12/23 07/13/23 14:59 22:59 06:59 Other: Weight 82.7 kg Results CBC & Chem 7: 07/12/23 20:18 07/12/23 20:18 Labs: Abnormal Lab Results - Last 24 Hours (Table) 07/12/23 07/12/23 07/12/23 Range/Units 20:18 20:18 20:18 WBC 13.7 H (3.8-10.6) k/uL RBC 3.48 L (3.80-5.40) m/uL Hgb 10.5 L (11.4-16.0) gm/dL Hct 30.6 L (34.0-46.0) % Plt Count 127 L (150-450) k/uL Neutrophils # 12.9 H (1.3-7.7) k/uL Lymphocytes # 0.4 L (1.0-4.8) k/uL APTT 21.8 L (22.0-30.0) sec BUN 68 H (7-17) mg/dL Creatinine 1.32 H (0.52-1.04) mg/dL Glucose 116 H (74-99) mg/dL POC Glucose (mg/dL) (70-110) mg/dL Alkaline Phosphatase 177 H (38-126) U/L 07/13/23 Range/Units 01:13 WBC (3.8-10.6) k/uL RBC (3.80-5.40) m/uL Hgb (11.4-16.0) gm/dL Hct (34.0-46.0) % Plt Count (150-450) k/uL Neutrophils # (1.3-7.7) k/uL Lymphocytes # (1.0-4.8) k/uL APTT (22.0-30.0) sec BUN (7-17) mg/dL Creatinine (0.52-1.04) mg/dL Glucose (74-99) mg/dL POC Glucose (mg/dL) 131 H (70-110) mg/dL Alkaline Phosphatase (38-126) U/L Thrombosis Risk Factor Assmnt - Choose All That Apply Any of the Below Risk Factors Present?: Yes Each Factor Represents 1 point: Swollen legs (current) Other Risk Factors: No Other congenital or acquired thrombophilia - If yes, enter type in comment: Yes Thrombosis Risk Factor Assessment Total Risk Factor Score: 1 Thrombosis Risk Factor Assessment Level: Low Risk
[2023-07-13 05:43] LABS: HCT 26.5 % (34.0-46.0); MCH 28.8 pg (25.0-35.0); MCHC 31.7 g/dL (31.0-37.0); MCV 90.9 fL (80.0-100.0); Mean Platelet Volume 8.9; RBC 2.92 m/uL (3.80-5.40); RDW 14.4 % (11.5-15.5); WBC 13.8 k/uL (3.8-10.6)
[2023-07-13 05:56] LABS: HGB 8.4 gm/dL (11.4-16.0)
[2023-07-13 05:58] LABS: African American GFR (CKD) 39 (>60 ml/min/1.73 sqM); Anion Gap 5 mmol/L; Blood Urea Nitrogen 66 mg/dL (7-17); Calcium 8.4 mg/dL (8.4-10.2); Carbon Dioxide 23 mmol/L (22-30); Chloride 108 mmol/L (98-107); Glucose 112 mg/dL (74-99); Non-African American GFR(CKD) 34 (>60 ml/min/1.73 sqM); Potassium 3.7 mmol/L (3.5-5.1); Sodium 136 mmol/L (137-145)
[2023-07-13 06:26] LABS: Platelet Count 87 k/uL (150-450)
[2023-07-13 07:01] LABS: Glucose,Whole Blood 119 mg/dL (70-110)
--- NOTE | 2023-07-13 07:50 | P.PN ---
Subjective Progress Note Date: 07/13/23 Patient is a 88-year-old female with diabetes mellitus type 2 with peripheral neuropathy, A-fib on Eliquis, COPD, hypertension, dyslipidemia, and chronic right lower extremity nonhealing ulcer who presented to the emergency department due to confusion and fever. On arrival to the ER here vital signs were remarkable for temperature of 102.3 and a pulse of 140. Laboratory analysis was remarkable for white blood cell count 13.7, hemoglobin 10.5, platelets 127, creatinine 1.32. Cepheid 4 Plex was negative. Drug screen was negative. Chest x-ray demonstrated no acute process CT head demonstrated moderate atrophy with microvascular ischemic changes. It was felt that her sepsis was likely s econdary to her right lower extremity ulcer. She was started on ceftriaxone and vancomycin. Infectious disease was consulted and she was started on normal saline. She became hypotensive overnight and received 1 additional unit of fluid. She again became hypotensive on the morning of 07/13 necessitating norepinephrine. Patient seen and examined at bedside. She is feeling better than yesterday. She denies any pain, shortness of breath, lightheadedness, dizziness Vital signs reviewed General: Nontoxic, no distress, appears at stated age Cardiovascular: S1S2 reg, no murmur Lungs: Decreased breath sounds bilateral, no rhonchi, no rales, no accessory muscle use Abdominal: Soft, nontender to palpation, no guarding Ext: No gross muscle atrophy, no edema b/l lower extremities, no contractures Neuro: CN II-XI grossly intact, no focal neuro deficits Psych: Alert, oriented, appropriate affect Derm: Large 6 cm area of ulceration on right anterior hernandez with exposure of muscle and fat, no purulent drainage noted, not malodorous Assessment/Plan: Infected right lower extremity ulcer with septic shock Toxic metabolic encephalopathy -Hold all home blood pressure medications -Continue with vancomycin day #1 pharmacy dosing via creatinine and trough. Monitoring creatinine and trough for toxicity -Rocephin 1 g IV piggyback every 24 hours day #1 -Await infectious disease recommendations -Pulmonary recommendations reviewed: Continue with IV fluids, antibiotics, wean levo as able. -Wean Levophed as able Acute kidney injury on chronic kidney disease stage III -Hold fosinopril hydrochlorothiazide and Lasix -IV fluids -Repeat labs in a.m. Anemia and thrombocytopenia, chronic and near baseline - no indication for transfusion - follow CBC Diabetes mellitus type 2 -Hold metformin -Sliding scale insulin -Check A1c -Follow blood sugars Imaging: None new Data Review: Labs reviewed from today include CBC and basic metabolic profile which are remarkable for white blood cell count of 13.8, hemoglobin 8.4, platelets 87, BUN 66, creatinine 1.4 DVT prophylaxis: Eliquis Anticipated discharge date: Pending Clinical Course Anticipated discharge place: Pending Clinical Course This dictation was prepared using [employer] voice recognition software. Though every attempt is made to correct errors during dictation some may still exist. Objective - Vital Signs Vital signs: Vital Signs Temp 99.2 F 07/13/23 04:30 Pulse 93 07/13/23 07:00 Resp 25 H 07/13/23 07:00 BP 103/73 07/13/23 07:00 Pulse Ox 99 07/13/23 07:00 FiO2 Intake & Output 07/12/23 07/13/23 07/13/23 18:59 06:59 18:59 Intake Total 780 Output Total 600 Balance 780 -600 Weight 83 kg Intake: IV 780 Sodium Chloride 0.9% 1, 780 000 ml @ 130 mls/hr IV . Q7H42M [facility] Rx#:[id number] Output: Urine 600 - Labs CBC & Chem 7: 07/13/23 05:12 07/13/23 05:12 Labs: Abnormal Lab Results - Last 24 Hours (Table) 07/12/23 07/12/23 07/12/23 Range/Units 20:18 20:18 20:18 WBC 13.7 H (3.8-10.6) k/uL RBC 3.48 L (3.80-5.40) m/uL Hgb 10.5 L (11.4-16.0) gm/dL Hct 30.6 L (34.0-46.0) % Plt Count 127 L (150-450) k/uL Neutrophils # 12.9 H (1.3-7.7) k/uL Lymphocytes # 0.4 L (1.0-4.8) k/uL APTT 21.8 L (22.0-30.0) sec Sodium (137-145) mmol/L Chloride (98-107) mmol/L BUN 68 H (7-17) mg/dL Creatinine 1.32 H (0.52-1.04) mg/dL Glucose 116 H (74-99) mg/dL POC Glucose (mg/dL) (70-110) mg/dL Alkaline Phosphatase 177 H (38-126) U/L 07/13/23 07/13/23 07/13/23 Range/Units 01:13 05:12 05:12 WBC 13.8 H (3.8-10.6) k/uL RBC 2.92 L (3.80-5.40) m/uL Hgb 8.4 L D (11.4-16.0) gm/dL Hct 26.5 L (34.0-46.0) % Plt Count 87 L (150-450) k/uL Neutrophils # (1.3-7.7) k/uL Lymphocytes # (1.0-4.8) k/uL APTT (22.0-30.0) sec Sodium 136 L (137-145) mmol/L Chloride 108 H (98-107) mmol/L BUN 66 H (7-17) mg/dL Creatinine 1.40 H (0.52-1.04) mg/dL Glucose 112 H (74-99) mg/dL POC Glucose (mg/dL) 131 H (70-110) mg/dL Alkaline Phosphatase (38-126) U/L 07/13/23 Range/Units 07:00 WBC (3.8-10.6) k/uL RBC (3.80-5.40) m/uL Hgb (11.4-16.0) gm/dL Hct (34.0-46.0) % Plt Count (150-450) k/uL Neutrophils # (1.3-7.7) k/uL Lymphocytes # (1.0-4.8) k/uL APTT (22.0-30.0) sec Sodium (137-145) mmol/L Chloride (98-107) mmol/L BUN (7-17) mg/dL Creatinine (0.52-1.04) mg/dL Glucose (74-99) mg/dL POC Glucose (mg/dL) 119 H (70-110) mg/dL Alkaline Phosphatase (38-126) U/L
[2023-07-13] MEDS ORDERED: lisinopriL 10 MG TAB PO SCH (09:00)
[2023-07-13] MEDS ORDERED: METOPROLOL TARTRATE 50 MG TAB PO SCH (09:00)
[2023-07-13] MEDS ORDERED: hydroCHLOROthiazide 12.5 MG CAP PO SCH (09:00)
[2023-07-13] MEDS: GABAPENTIN 300 MG CAP PO SCH (09:25)
[2023-07-13] MEDS: MULTIVITAMINS, THERA 1 EACH TAB PO SCH (09:25)
[2023-07-13] MEDS: DONEPEZIL 10 MG TAB PO SCH (09:25)
[2023-07-13] MEDS: APIXABAN 2.5 MG TABLET PO SCH (09:25)
[2023-07-13] MEDS: ASCORBIC ACID 500 MG TAB PO SCH (09:26)
[2023-07-13] MEDS: traMADol 50 MG TAB PO SCH (09:37)
[2023-07-13] MEDS: SODIUM CHLORIDE 0.9% 1,000 ML IV ONE (11:12)
[2023-07-13] MEDS: NOREPINEPHRINE 4 MG in SODIUM CHLORIDE 0.9% 250 ML IV SCH (13:16)
--- NOTE | 2023-07-13 13:39 | P.CNPUL ---
History of Present Illness Consult date: 07/13/23 Requesting physician: Vanessa Genao Reason for consult: other (Sepsis, possible septic shock) Chief complaint: Fever and confusion History of present illness: This is an 88-year-old female with history of multiple medical problems including chronic right lower extremity nonhealing ulcer, chronic atrial fibrillation, chronic anemia, dementia, dyslipidemia, history of aortic valve stenosis and previous TAVR, type 2 diabetes, essential hypertension, mild obstructive lung disease and restrictive lung disease, brought into the emergency room yesterday mostly with concern of family members about her confusion and low-grade fever. Patient developed chills and mental status change, patient had no symptoms of cough, no shortness of breath, no headache, no neck pain, no nausea, no abdominal pain, no melena, no hematemesis. Patient does have history of chronic right lower extremity ulcer, and has required antibiotics in the past for this ulcer, continues to follow-up usually with the wound care center for her ulcer. In the ER, patient had a relatively normal CT of the brain, chest x-ray was also unremarkable, patient was noted to be hypotensive, and she received fluid boluses, did not require any epinephrine initially, but today after I saw the patient and she was getting fluids at 150 cc/h, patient developed hypotension requiring norepinephrine, and I felt that the patient has sepsis and possibly septic shock. And the patient is receiving antibiotic in the form of vancomycin and Rocephin. Blood cultures are pending. WBC count is 13.8 hemoglobin is 8.4. Basic metabolic profile is normal creatinine went up from 1.32 up to 1.40 in less than 24 hours. Patient had negative drug screen, negative influenza a influenza B RSV and COVID-19 screening. Analysis was noted to be unremarkable. Lactic acid on admission was 1.1 hemoglobin this morning was 8.4, her hemoglobin on admission was 10.5, reminded patient received few liters of fluid since admission Review of Systems REVIEW OF SYSTEMS: CONSTITUTIONAL: Generalized weakness fatigue, low-grade fever EYES: Negative. ENT: Negative. CARDIAC: 3 of chronic atrial fibrillation and history of aortic valve stenosis requiring TAVR. Chest pain no orthopnea no PND PULMONARY: Has any shortness of breath cough or wheezing GI: Negative. GENITOURINARY: Negative. MUSCULOSKELETAL: Negative. SKIN: Chronic nonhealing ulcer on the right lower extremity. NEUROPSYCH: Confusion and mental status change although the patient does have baseline dementia today in the chart from Dr. Quesada's notes ENDOCRINE: Negative. HEMATOLOGIC: Anemia/chronic Past Medical History Past Medical History: Atrial Fibrillation, COPD, Diabetes Mellitus, Hyperlipidemia, Hypertension, Memory Impairment, Osteoarthritis (OA) Additional Past Medical History / Comment(s): possible Hiatal Hernia, left neck mass History of Any Multi-Drug Resistant Organisms: None Reported Past Surgical History: Cardiac Valve Replacement, Cholecystectomy, Orthopedic Surgery Additional Past Surgical History / Comment(s): Right knee surgery X5, Hammer Toe surgery, left knee arthroscopy Past Anesthesia/Blood Transfusion Reactions: Previous Problems w/ Anesthesia Additional Past Anesthesia/Blood Transfusion Reaction / Comment(s): Woke up during last knee surgery. Smoking Status: Current some day smoker - Past Family History Father Family Medical History: Cancer Additional Family Medical History / Comment(s): Prostate Cancer. Brother(s) Additional Family Medical History / Comment(s): Blood clot from surgery. Medications and Allergies Home Medications Medication Instructions Recorded Confirmed Type Apixaban [Eliquis] 2.5 mg PO BID 10/10/18 07/12/23 History Ascorbic Acid [Vitamin C] 1,000 mg PO DAILY 10/10/18 07/12/23 History Atorvastatin [Lipitor] 40 mg PO Q48H 10/10/18 07/12/23 History Cholecalciferol [Vitamin D3 (25 25 mcg PO DAILY 10/10/18 07/12/23 History Mcg = 1000 Iu)] Latanoprost/Pf [Latanoprost 0.005% 1 drop RIGHT EYE HS 10/10/18 07/12/23 History Eye Drop] Multivitamins, Thera [Multivitamin 1 tab PO DAILY 10/10/18 07/12/23 History (formulary)] metFORMIN HCL [metFORMIN HCL ER] 750 mg PO BID 10/10/18 07/12/23 History Diphenoxylate HCl/Atropine 1 - 2 tab PO QID PRN 01/17/20 07/12/23 History [Lomotil 2.5-0.025 mg Tablet] Ferrous Sulfate [Iron] 325 mg PO Q48H 01/17/20 07/12/23 History Furosemide [Lasix] 20 mg PO DAILY PRN 01/17/20 07/12/23 History Donepezil [Aricept] 10 mg PO DAILY 12/27/20 07/12/23 History Calcium 1000mg 1 tab PO DAILY 01/23/23 07/12/23 History Co Q-10 100mg 1 tab PO DAILY 01/23/23 07/12/23 History Super Beets Heart Chews 2 tab PO W/LUNCH 01/23/23 07/12/23 History Zinc Gluconate [Zinc] 50 mg PO DAILY 01/23/23 07/12/23 History Acetaminophen Tab [Tylenol] 650 mg PO Q6HR PRN tab 01/28/23 07/12/23 Rx Fosinopril/Hydrochlorothiazide 1 tab PO DAILY 07/12/23 07/12/23 History [Monopril HCT 10-12.5 mg Tab] Gabapentin 300 mg PO TID 07/12/23 07/12/23 History Metoprolol Tartrate [Lopressor] 50 mg PO DAILY 07/12/23 07/12/23 History Zolpidem [Ambien] 5 mg PO HS PRN 07/12/23 07/12/23 History traMADol HCL 50 mg PO BID 07/12/23 07/12/23 History Allergies Allergy/AdvReac Type Severity Reaction Status Date / Time Paper Tape Allergy Redness/Itc Uncoded 07/12/23 21:52 erick Physical Exam Vitals: Vital Signs Temp Pulse Pulse Resp BP BP Pulse Ox 07/13/23 13:00 86 20 77/40 96 07/13/23 12:00 87 94/62 07/13/23 10:35 89/41 07/13/23 10:32 93/41 07/13/23 10:00 87/44 07/13/23 08:00 99 F 18 107/36 100 07/13/23 07:58 97 07/13/23 07:00 93 25 H 103/73 99 07/13/23 06:30 84 20 103/43 98 07/13/23 06:00 97 24 98 07/13/23 05:30 86 16 99 07/13/23 05:00 90 18 101/49 99 07/13/23 04:30 99.2 F 84 20 97 07/13/23 04:00 98 27 H 97/49 99 07/13/23 03:30 101 H 22 100 07/13/23 03:00 93 23 98 07/13/23 02:30 92 23 97/49 98 07/13/23 02:00 99.3 F 98 17 80/69 97 07/13/23 01:30 101 H 26 H 89/49 96 07/13/23 01:00 99.3 F 100 22 87/47 97 07/13/23 00:00 96 20 87/47 97 07/12/23 23:45 98 18 92/43 100 07/12/23 23:30 104 H 20 99/42 100 07/12/23 23:15 98 20 127/75 100 07/12/23 23:00 102 H 20 85/52 98 07/12/23 22:56 99.3 F 88/44 07/12/23 22:30 97 20 101/59 97 07/12/23 22:00 101 H 20 85/56 98 07/12/23 21:59 102.2 F H 07/12/23 21:30 112 H 22 116/50 94 L 07/12/23 21:00 112 H 22 133/58 97 07/12/23 20:30 137 H 26 H 138/94 97 07/12/23 20:01 102.3 F H 140 H 24 138/94 90 L Intake and Output 07/12/23 07/13/23 07/13/23 22:59 06:59 14:59 Intake Total 780 2140 Output Total 600 Balance 780 1540 Intake: IV 780 660 Sodium Chloride 0.9% 1, 780 660 000 ml @ 100 mls/hr IV . Q10H [facility] Rx#:[id number] Intake, IV Titration 1000 Amount Sodium Chloride 0.9% 1, 1000 000 ml @ 100 mls/hr IV . Q10H [facility] Rx#:[id number] Oral 480 Output: Urine 600 Other: Weight 82.7 kg 83 kg General: The patient is lethargic, arousable, follows simple instructions, not in respiratory distress. Skin: Skin is warm and dry chronic large nonhealing ulcer noted on the distal aspect of the right lower extremity above the ankle Eye: Pupils are equal, round and reactive to light, extra-ocular movements are intact; there is normal conjunctiva bilaterally. Ears, nose, mouth and throat: There are moist mucous membranes and no oral lesions. Neck: The neck is supple, there is no tenderness or JVD. Cardiovascular: Irregular irregular rhythm, 2/6 systolic murmur throughout the precordium Respiratory: Diminished breath sound bilaterally no rhonchi no wheezes Gastrointestinal: Soft, non-distended, non-tender abdomen without masses or organomegaly noted. There is no rebound or guarding present. Bowel sounds are unremarkable. Back: There is no tenderness to palpation in the midline. There is no obvious deformity. Musculoskeletal: Normal ROM, no tenderness, There is no pedal edema. There is no calf tenderness or swelling. Neurological: Patient seems to be a bit lethargic, arousable, follows simple instructions, no gross focal neurological deficit except a bit of lethargy Psychiatric: Lethargic but arousable, flat affect, Results - Laboratory Findings CBC and BMP: 07/13/23 05:12 07/13/23 05:12 PT/INR, D-dimer PT 10.3 sec (10.0-12.5) 07/12/23 20:18 INR 0.9 (<1.2) 07/12/23 20:18 Abnormal lab findings: Abnormal Labs 07/12/23 07/12/23 07/12/23 20:18 20:18 20:18 WBC 13.7 H RBC 3.48 L Hgb 10.5 L Hct 30.6 L Plt Count 127 L Neutrophils # 12.9 H Lymphocytes # 0.4 L APTT 21.8 L Sodium Chloride BUN 68 H Creatinine 1.32 H Glucose 116 H POC Glucose (mg/dL) Alkaline Phosphatase 177 H 07/13/23 07/13/23 07/13/23 01:13 05:12 05:12 WBC 13.8 H RBC 2.92 L Hgb 8.4 L D Hct 26.5 L Plt Count 87 L Neutrophils # Lymphocytes # APTT Sodium 136 L Chloride 108 H BUN 66 H Creatinine 1.40 H Glucose 112 H POC Glucose (mg/dL) 131 H Alkaline Phosphatase 07/13/23 07:00 WBC RBC Hgb Hct Plt Count Neutrophils # Lymphocytes # APTT Sodium Chloride BUN Creatinine Glucose POC Glucose (mg/dL) 119 H Alkaline Phosphatase - Diagnostic Findings Chest x-ray: image reviewed (Chest x-ray showed no evidence of any acute findings) Assessment and Plan Assessment: Impression: Hypotension most likely secondary to sepsis, and now that she is requiring norepinephrine patient may have septic shock. Chronic infected right lower extremity ulcer is the most likely source of her infection and sepsis Chronic anemia Type 2 diabetes with diabetic nephropathy Acute on chronic kidney injury most likely secondary to sepsis/acute tubular necrosis Toxic metabolic encephalopathy History of underlying dementia History of chronic anemia History of benign positional vertigo History of underlying COPD mild to moderate History of closed fracture of neck of right femur History of aortic stenosis and previous TAVR History of GERD Benign essential hypertension Dyslipidemia Insomnia Chronic fatigue Chronic atrial fibrillation Recommendation: Continue to monitor in the ICU Continue norepinephrine Check blood cultures and address accordingly Hold metformin Continue sliding scale insulin No need for blood transfusion at this point however we will continue to monitor Continue to monitor renal status especially with her acute on chronic kidney injury Hold blood pressure medications for now. Continue to hold metforminContinue DVT prophylaxis/Eliquis Continue IV fluids Continue antibiotics Check blood cultures Will continue to follow. Prognosis is guarded for Time with Patient: Greater than 30
[2023-07-13] MEDS: LATANOPROST 0.005% OPHTH DROPS 2.5 ML BTL RIGHT EYE SCH (21:01)
[2023-07-14 04:11] LABS: HCT 25.1 % (34.0-46.0); HGB 8.1 gm/dL (11.4-16.0); Hypochromasia Slight; MCH 29.1 pg (25.0-35.0); MCHC 32.2 g/dL (31.0-37.0); MCV 90.5 fL (80.0-100.0); Mean Platelet Volume 9.6; RBC 2.77 m/uL (3.80-5.40); RDW 14.5 % (11.5-15.5)
[2023-07-14 04:16] LABS: Platelet Count 95 k/uL (150-450)
[2023-07-14 04:24] LABS: African American GFR (CKD) 43 (>60 ml/min/1.73 sqM); Anion Gap 2 mmol/L; Blood Urea Nitrogen 56 mg/dL (7-17); Calcium 7.9 mg/dL (8.4-10.2); Carbon Dioxide 22 mmol/L (22-30); Chloride 109 mmol/L (98-107); Glucose 118 mg/dL (74-99); Non-African American GFR(CKD) 37 (>60 ml/min/1.73 sqM); Potassium 3.7 mmol/L (3.5-5.1); Sodium 133 mmol/L (137-145)
[2023-07-14 06:38] LABS: Glucose,Whole Blood 134 mg/dL (70-110)
[2023-07-14] MEDS: INSULIN ASPART (NovoLOG) 100 UNIT/ML VIAL SQ SCH (06:45)
--- NOTE | 2023-07-14 07:02 | P.CONS ---
History of Present Illness - Reason for Consult Consult date: 07/13/23 - History of Present Illness Patient is a 88-year-old female with a past medical history significant for diabetes mellitus hypertension hyperlipidemia COPD atrial fibrillation patient also have a chronic nonhealing wound to the right lower extremity that has been there for more than a couple of months and does follow at wound care center for local wound care mention currently getting local treatment with Santyl patient was brought into the ER by the family concerning for confusion and fever patient symptoms started around 6 PM the day of presentation to the hospital patient suddenly started having confusion and fever with chills. Denies having any headache or URI symptoms. Denies having any chest pain or shortness of breath or cough no nausea vomiting no abdominal pain no diarrhea patient complains of some dull aching pain to the right lower extremity wound about 2-3 out of 10 and no radiation did have some associated swelling and redness however mention no foul-smelling drainage with the symptoms the patient was evaluated on presentation to the hospital patient did have a fever of 102.3 F, patient was tachycardic hypotensive requiring admission to the ICU mildly hypoxic currently on 2 L nasal cannula oxygen patient did have a white count of 13.7 but is slightly up to 13.8 today BUN and creatinine are mildly elevated liver enzymes are normal urine was negative urine drug screen was negative influenza RSV COVID testing was negative blood culture local culture has been obtained which are currently pending patient did have a chest x-ray no acute findings, patient was started on Rocephin and vancomycin infectious disease was consulted for further management of antibiotic therapy Past Medical History Past Medical History: Atrial Fibrillation, COPD, Diabetes Mellitus, Hyperlipidemia, Hypertension, Memory Impairment, Osteoarthritis (OA) Additional Past Medical History / Comment(s): possible Hiatal Hernia, left neck mass History of Any Multi-Drug Resistant Organisms: None Reported Past Surgical History: Cardiac Valve Replacement, Cholecystectomy, Orthopedic Surgery Additional Past Surgical History / Comment(s): Right knee surgery X5, Hammer Toe surgery, left knee arthroscopy Past Anesthesia/Blood Transfusion Reactions: Previous Problems w/ Anesthesia Additional Past Anesthesia/Blood Transfusion Reaction / Comm: Woke up during last knee surgery. Smoking Status: Current some day smoker - Past Family History Father Family Medical History: Cancer Additional Family Medical History / Comment(s): Prostate Cancer. Brother(s) Additional Family Medical History / Comment(s): Blood clot from surgery. Medications and Allergies Home Medications Medication Instructions Recorded Confirmed Type Apixaban [Eliquis] 2.5 mg PO BID 10/10/18 07/12/23 History Ascorbic Acid [Vitamin C] 1,000 mg PO DAILY 10/10/18 07/12/23 History Atorvastatin [Lipitor] 40 mg PO Q48H 10/10/18 07/12/23 History Cholecalciferol [Vitamin D3 (25 25 mcg PO DAILY 10/10/18 07/12/23 History Mcg = 1000 Iu)] Latanoprost/Pf [Latanoprost 0.005% 1 drop RIGHT EYE HS 10/10/18 07/12/23 History Eye Drop] Multivitamins, Thera [Multivitamin 1 tab PO DAILY 10/10/18 07/12/23 History (formulary)] metFORMIN HCL [metFORMIN HCL ER] 750 mg PO BID 10/10/18 07/12/23 History Diphenoxylate HCl/Atropine 1 - 2 tab PO QID PRN 01/17/20 07/12/23 History [Lomotil 2.5-0.025 mg Tablet] Ferrous Sulfate [Iron] 325 mg PO Q48H 01/17/20 07/12/23 History Furosemide [Lasix] 20 mg PO DAILY PRN 01/17/20 07/12/23 History Donepezil [Aricept] 10 mg PO DAILY 12/27/20 07/12/23 History Calcium 1000mg 1 tab PO DAILY 01/23/23 07/12/23 History Co Q-10 100mg 1 tab PO DAILY 01/23/23 07/12/23 History Super Beets Heart Chews 2 tab PO W/LUNCH 01/23/23 07/12/23 History Zinc Gluconate [Zinc] 50 mg PO DAILY 01/23/23 07/12/23 History Acetaminophen Tab [Tylenol] 650 mg PO Q6HR PRN tab 01/28/23 07/12/23 Rx Fosinopril/Hydrochlorothiazide 1 tab PO DAILY 07/12/23 07/12/23 History [Monopril HCT 10-12.5 mg Tab] Gabapentin 300 mg PO TID 07/12/23 07/12/23 History Metoprolol Tartrate [Lopressor] 50 mg PO DAILY 07/12/23 07/12/23 History Zolpidem [Ambien] 5 mg PO HS PRN 07/12/23 07/12/23 History traMADol HCL 50 mg PO BID 07/12/23 07/12/23 History Allergies Allergy/AdvReac Type Severity Reaction Status Date / Time Paper Tape Allergy Redness/Itc Uncoded 07/12/23 21:52 erick Physical Exam Vitals: Vital Signs Temp Pulse Resp BP BP Pulse Ox 07/13/23 08:00 99 F 18 107/36 100 07/13/23 07:58 97 07/13/23 07:00 93 25 H 103/73 99 07/13/23 06:30 84 20 103/43 98 07/13/23 06:00 97 24 98 07/13/23 05:30 86 16 99 07/13/23 05:00 90 18 101/49 99 07/13/23 04:30 99.2 F 84 20 97 07/13/23 04:00 98 27 H 97/49 99 07/13/23 03:30 101 H 22 100 07/13/23 03:00 93 23 98 07/13/23 02:30 92 23 97/49 98 07/13/23 02:00 99.3 F 98 17 80/69 97 07/13/23 01:30 101 H 26 H 89/49 96 07/13/23 01:00 99.3 F 100 22 87/47 97 07/13/23 00:00 96 20 87/47 97 07/12/23 23:45 98 18 92/43 100 07/12/23 23:30 104 H 20 99/42 100 07/12/23 23:15 98 20 127/75 100 07/12/23 23:00 102 H 20 85/52 98 07/12/23 22:56 99.3 F 88/44 07/12/23 22:30 97 20 101/59 97 07/12/23 22:00 101 H 20 85/56 98 07/12/23 21:59 102.2 F H 07/12/23 21:30 112 H 22 116/50 94 L 07/12/23 21:00 112 H 22 133/58 97 07/12/23 20:30 137 H 26 H 138/94 97 07/12/23 20:01 102.3 F H 140 H 24 138/94 90 L Intake and Output 07/12/23 07/13/23 07/13/23 22:59 06:59 14:59 Intake Total 780 Output Total 600 Balance 780 -600 Intake: IV 780 Sodium Chloride 0.9% 1, 780 000 ml @ 130 mls/hr IV . Q7H42M [facility] Rx#:[id number] Output: Urine 600 Other: Weight 82.7 kg 83 kg Results CBC & Chem 7: 07/14/23 03:41 07/14/23 03:41 Labs: Abnormal Lab Results - Last 24 Hours (Table) 07/12/23 07/12/23 07/12/23 Range/Units 20:18 20:18 20:18 WBC 13.7 H (3.8-10.6) k/uL RBC 3.48 L (3.80-5.40) m/uL Hgb 10.5 L (11.4-16.0) gm/dL Hct 30.6 L (34.0-46.0) % Plt Count 127 L (150-450) k/uL Neutrophils # 12.9 H (1.3-7.7) k/uL Lymphocytes # 0.4 L (1.0-4.8) k/uL APTT 21.8 L (22.0-30.0) sec Sodium (137-145) mmol/L Chloride (98-107) mmol/L BUN 68 H (7-17) mg/dL Creatinine 1.32 H (0.52-1.04) mg/dL Glucose 116 H (74-99) mg/dL POC Glucose (mg/dL) (70-110) mg/dL Alkaline Phosphatase 177 H (38-126) U/L 07/13/23 07/13/23 07/13/23 Range/Units 01:13 05:12 05:12 WBC 13.8 H (3.8-10.6) k/uL RBC 2.92 L (3.80-5.40) m/uL Hgb 8.4 L D (11.4-16.0) gm/dL Hct 26.5 L (34.0-46.0) % Plt Count 87 L (150-450) k/uL Neutrophils # (1.3-7.7) k/uL Lymphocytes # (1.0-4.8) k/uL APTT (22.0-30.0) sec Sodium 136 L (137-145) mmol/L Chloride 108 H (98-107) mmol/L BUN 66 H (7-17) mg/dL Creatinine 1.40 H (0.52-1.04) mg/dL Glucose 112 H (74-99) mg/dL POC Glucose (mg/dL) 131 H (70-110) mg/dL Alkaline Phosphatase (38-126) U/L 07/13/23 Range/Units 07:00 WBC (3.8-10.6) k/uL RBC (3.80-5.40) m/uL Hgb (11.4-16.0) gm/dL Hct (34.0-46.0) % Plt Count (150-450) k/uL Neutrophils # (1.3-7.7) k/uL Lymphocytes # (1.0-4.8) k/uL APTT (22.0-30.0) sec Sodium (137-145) mmol/L Chloride (98-107) mmol/L BUN (7-17) mg/dL Creatinine (0.52-1.04) mg/dL Glucose (74-99) mg/dL POC Glucose (mg/dL) 119 H (70-110) mg/dL Alkaline Phosphatase (38-126) U/L Assessment and Plan Plan: 1patient was in the hospital with sepsis in this patient who did have a fever tachycardia elevated white count source likely right lower extremity wound with secondary cellulitis as currently no other obvious focus of infection patient did not have respiratory symptoms lungs are clear to auscultation chest x-ray was negative abdominal soft urine is negative, we will likely need to cover for the gram-positive skin rodney to be the likely pathogen gram-negative infection less likely nocturnal excluded 2local wound care with Medihoney followed by moist dressing change daily 3patient to continue with the vancomycin pharmacy dosing Rocephin while waiting for the culture to finalize We will follow on clinical condition and cultures to further adjust medication if needed Thank you for this consultation we will follow the patient along with you Dictation was produced using [employer] software. please excuse any grammatical, word or spelling errors. Time with Patient: Greater than 30
[2023-07-14] MEDS: ATORVASTATIN 40 MG TAB PO SCH (09:03)
[2023-07-14] MEDS ORDERED: Potassium Replacement Protocol 1 EACH MISC MISCELLANE PRN (10:09)
--- NOTE | 2023-07-14 10:19 | P.CONS ---
History of Present Illness - Reason for Consult Consult date: 07/14/23 wound care - History of Present Illness This is an 88-year-old patient known to the wound care center being seen in ICU for nonhealing ulceration to the right lower extremity. Patient has had the ulceration for approximately 2 years. She has utilized multiple different advanced wound products including negative pressure wound VAC, TheraSkin, absorptive silver and Santyl. At this time Santyl has proven to be the most b eneficial and promoting wound healing. Patient does have calcium deposits noted within the wound bed. Ulceration shows granulation slough and nonviable tissue. At home patient utilizes compression pumps to help with edema. Approximately 8 weeks ago patient was in rehab related to a hip fracture. At that time ulceration had significant improvement. Since the patient has been home the ulceration has declined. She has been placed on multiple oral antibiotics to treat positive deep tissue cultures. Review Of Systems: Constitutional: No fever, no chills, no night sweats. No weight change. No weakness, fatigue or lethargy. No daytime sleepiness. Integumentary:reports wounds, no lesions. No rash or pruritus. No unusual bruising. No change in hair or nails. Physical exam: General Appearance: Alert, cooperative, no distress, appears stated age. Skin: See HPI all other Skin color, texture, tugor normal, no rashes or lesions. Neurologic: Alert oriented x3 Assessment: 1. 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 Chronic venous hypertension with ulcer and inflammation of right lower extremity Plan: 1. Apply Santyl, saline moist gauze, dry gauze, rolled gauze and secure with paper tape. Patient return to the wound care center on July 23 at 12:45 PM. Thank you for the consultation any questions please contact the wound care center DNP note has been reviewed and discussed with Dr. Zavala and the impression and plan of care has been directed as dictated. Past Medical History Past Medical History: Atrial Fibrillation, COPD, Diabetes Mellitus, Hyperlipidemia, Hypertension, Memory Impairment, Osteoarthritis (OA) Additional Past Medical History / Comment(s): possible Hiatal Hernia, left neck mass History of Any Multi-Drug Resistant Organisms: None Reported Past Surgical History: Cardiac Valve Replacement, Cholecystectomy, Orthopedic Surgery Additional Past Surgical History / Comment(s): Right knee surgery X5, Hammer Toe surgery, left knee arthroscopy Past Anesthesia/Blood Transfusion Reactions: Previous Problems w/ Anesthesia Additional Past Anesthesia/Blood Transfusion Reaction / Comm: Woke up during last knee surgery. Smoking Status: Current some day smoker - Past Family History Father Family Medical History: Cancer Additional Family Medical History / Comment(s): Prostate Cancer. Brother(s) Additional Family Medical History / Comment(s): Blood clot from surgery. Medications and Allergies Home Medications Medication Instructions Recorded Confirmed Type Apixaban [Eliquis] 2.5 mg PO BID 10/10/18 07/12/23 History Ascorbic Acid [Vitamin C] 1,000 mg PO DAILY 10/10/18 07/12/23 History Atorvastatin [Lipitor] 40 mg PO Q48H 10/10/18 07/12/23 History Cholecalciferol [Vitamin D3 (25 25 mcg PO DAILY 10/10/18 07/12/23 History Mcg = 1000 Iu)] Latanoprost/Pf [Latanoprost 0.005% 1 drop RIGHT EYE HS 10/10/18 07/12/23 History Eye Drop] Multivitamins, Thera [Multivitamin 1 tab PO DAILY 10/10/18 07/12/23 History (formulary)] metFORMIN HCL [metFORMIN HCL ER] 750 mg PO BID 10/10/18 07/12/23 History Diphenoxylate HCl/Atropine 1 - 2 tab PO QID PRN 01/17/20 07/12/23 History [Lomotil 2.5-0.025 mg Tablet] Ferrous Sulfate [Iron] 325 mg PO Q48H 01/17/20 07/12/23 History Furosemide [Lasix] 20 mg PO DAILY PRN 01/17/20 07/12/23 History Donepezil [Aricept] 10 mg PO DAILY 12/27/20 07/12/23 History Calcium 1000mg 1 tab PO DAILY 01/23/23 07/12/23 History Co Q-10 100mg 1 tab PO DAILY 01/23/23 07/12/23 History Super Beets Heart Chews 2 tab PO W/LUNCH 01/23/23 07/12/23 History Zinc Gluconate [Zinc] 50 mg PO DAILY 01/23/23 07/12/23 History Acetaminophen Tab [Tylenol] 650 mg PO Q6HR PRN tab 01/28/23 07/12/23 Rx Fosinopril/Hydrochlorothiazide 1 tab PO DAILY 07/12/23 07/12/23 History [Monopril HCT 10-12.5 mg Tab] Gabapentin 300 mg PO TID 07/12/23 07/12/23 History Metoprolol Tartrate [Lopressor] 50 mg PO DAILY 07/12/23 07/12/23 History Zolpidem [Ambien] 5 mg PO HS PRN 07/12/23 07/12/23 History traMADol HCL 50 mg PO BID 07/12/23 07/12/23 History Allergies Allergy/AdvReac Type Severity Reaction Status Date / Time Paper Tape Allergy Redness/Itc Uncoded 07/12/23 21:52 erick Physical Exam Vitals: Vital Signs Temp Pulse Pulse Resp BP BP Pulse Ox 07/14/23 10:00 90 19 113/53 94 L 07/14/23 09:45 82 18 106/54 94 L 07/14/23 09:30 81 19 120/81 93 L 07/14/23 09:15 86 17 106/65 96 07/14/23 09:00 84 18 99/54 96 07/14/23 08:45 75 17 118/53 95 07/14/23 08:30 87 17 100/50 96 07/14/23 08:15 98.2 F 89 18 101/51 95 07/14/23 08:00 82 18 107/51 95 07/14/23 07:45 84 19 110/53 94 L 07/14/23 07:30 96 12 117/59 96 07/14/23 07:15 100 18 112/55 96 07/14/23 07:00 83 18 107/51 95 07/14/23 06:00 87 19 105/50 95 07/14/23 05:00 91 19 107/49 94 L 07/14/23 04:00 99.4 F 84 18 107/53 94 L 07/14/23 03:00 86 20 110/50 94 L 07/14/23 02:00 92 21 104/54 95 07/14/23 01:00 86 19 115/54 07/14/23 00:00 99.5 F 91 19 95/49 95 07/13/23 23:00 89 20 115/61 96 07/13/23 22:00 82 22 121/60 97 07/13/23 21:38 77 20 97/50 97 07/13/23 21:00 89 19 108/76 94 L 07/13/23 20:00 99.7 F H 78 21 103/52 96 07/13/23 19:00 93 20 120/61 97 07/13/23 18:45 93 23 122/57 95 07/13/23 18:30 100 20 109/57 98 07/13/23 18:15 84 17 97/42 97 07/13/23 18:00 99.9 F H 86 21 99/48 96 07/13/23 17:45 84 20 84/38 98 07/13/23 17:30 79 17 92/41 96 07/13/23 17:15 84 18 88/51 97 07/13/23 17:00 93 16 96/48 98 07/13/23 16:45 92 13 91/35 97 07/13/23 16:30 84 19 93/39 97 07/13/23 16:15 88 16 86/39 98 07/13/23 16:00 88 20 92/41 97 07/13/23 15:45 81 19 92/38 97 07/13/23 15:30 81 19 100/58 97 07/13/23 15:15 87 18 97/48 98 07/13/23 15:00 81 20 85/36 100 07/13/23 14:45 90 19 84/42 98 07/13/23 14:30 82 24 78/40 98 07/13/23 14:15 87 18 93/40 99 07/13/23 14:00 96 17 70/45 98 07/13/23 13:45 89 20 79/44 96 07/13/23 13:30 79 20 88/49 98 07/13/23 13:15 80 18 77/40 96 07/13/23 13:00 86 20 77/40 96 07/13/23 12:00 87 94/62 07/13/23 10:35 89/41 07/13/23 10:32 93/41 Intake and Output 07/13/23 07/14/23 07/14/23 22:59 06:59 14:59 Intake Total 1605.200 900 818.983 Output Total 270 470 300 Balance 1335.200 430 518.983 Intake: IV 800 900 200 Sodium Chloride 0.9% 1, 800 900 200 000 ml @ 100 mls/hr IV . Q10H [facility] Rx#:[id number] Intake, IV Titration 105.200 128.983 Amount Norepinephrine 4 mg In 105.200 128.983 Sodium Chloride 0.9% 250 ml @ 0.03 MCG/KG/MIN 9. 487 mls/hr IV .Q24H [facility] Rx#:[id number] Oral 700 490 Output: Urine 270 470 300 Other: Voiding Method Indwelling Catheter Indwelling Catheter # Bowel Movements 1 Weight 87.9 kg Results CBC & Chem 7: 07/14/23 03:41 07/14/23 03:41 Labs: Abnormal Lab Results - Last 24 Hours (Table) 07/14/23 07/14/23 07/14/23 Range/Units 03:41 03:41 06:36 WBC 16.0 H (3.8-10.6) k/uL RBC 2.77 L (3.80-5.40) m/uL Hgb 8.1 L (11.4-16.0) gm/dL Hct 25.1 L (34.0-46.0) % Plt Count 95 L (150-450) k/uL Sodium 133 L (137-145) mmol/L Chloride 109 H (98-107) mmol/L BUN 56 H (7-17) mg/dL Creatinine 1.30 H (0.52-1.04) mg/dL Glucose 118 H (74-99) mg/dL POC Glucose (mg/dL) 134 H (70-110) mg/dL Calcium 7.9 L (8.4-10.2) mg/dL Microbiology - Last 24 Hours (Table) 07/12/23 20:45 Blood Culture Gram Stain - Preliminary Blood Blood Culture - Preliminary Beta Hemolytic Strep Group G 07/12/23 22:31 Gram Stain - Preliminary Leg - Right Assessment and Plan (1) Non-pressure chronic ulcer of other part of right lower leg with fat layer exposed Current Visit: No Status: Acute Code(s): L97.812 - NON-PRS CHRONIC ULCER OTH PRT R LOW LEG W FAT LAYER EXPOSED SNOMED Code(s): 23466421369033659 (2) Chronic venous hypertension (idiopathic) with ulcer and inflammation of right lower extremity Current Visit: No Status: Acute Code(s): I87.331 - CHRONIC VENOUS HTN W ULCER AND INFLAMMATION OF R LOW EXTREM SNOMED Code(s): 820312645105786
--- NOTE | 2023-07-14 12:12 | P.PN ---
Subjective Progress Note Date: 07/14/23 Principal diagnosis: Reason for follow-up is sepsis right leg wound and cellulitis Patient is a 88-year-old female with a past medical history significant for diabetes mellitus hypertension hyperlipidemia COPD atrial fibrillation patient also have a chronic nonhealing wound to the right lower extremity and presented to the hospital with fever confusion patient was noted to be septic possibly to the right lower extremity wound infection and cellulitis. On today's evaluation that is 07/14/2023, Patient is afebrile , patient is currently on room air and denies having any shortness of breath, the patient denies any chest pain or cough, the patient denies any nausea vomiting did not have any abdominal pain and no diarrhea, denies any worsening pain to the right leg wound area. The patient white count is 16,000 creatinine is 1.30 blood cultures with beta-hemolytic strep group G Objective - Vital Signs Vital signs: Vital Signs Temp 98.2 F 07/14/23 08:15 Pulse 90 07/14/23 10:00 Resp 19 07/14/23 10:00 BP 113/53 07/14/23 10:00 Pulse Ox 94 L 07/14/23 10:00 FiO2 Intake & Output 07/13/23 07/14/23 07/14/23 18:59 06:59 18:59 Intake Total 2965.017 1800 818.983 Output Total 1035 605 300 Balance 7901.796 0171 518.983 Weight 87.9 kg Intake: IV 1160 1300 200 Sodium Chloride 0.9% 1, 1160 1300 200 000 ml @ 100 mls/hr IV . Q10H [facility] Rx#:[id number] Intake, IV Titration 1125.017 128.983 Amount Norepinephrine 4 mg In 125.017 128.983 Sodium Chloride 0.9% 250 ml @ 0.03 MCG/KG/MIN 9. 487 mls/hr IV .Q24H [facility] Rx#:[id number] Sodium Chloride 0.9% 1, 1000 000 ml @ 100 mls/hr IV . Q10H [facility] Rx#:[id number] Oral 680 500 490 Output: Urine 1035 605 300 Other: Voiding Method Indwelling Catheter Indwelling Catheter # Bowel Movements 1 - Exam GENERAL DESCRIPTION: An elderly female lying in bed in no distress RESPIRATORY SYSTEM: Unlabored breathing , decreased breath sounds at bases HEART: S1 S2 regular rate and rhythm , ABDOMEN: Soft , no tenderness EXTREMITIES: Right leg wound is currently dressed no drainage on the dressing - Labs CBC & Chem 7: 07/14/23 03:41 07/14/23 03:41 Labs: Abnormal Lab Results - Last 24 Hours (Table) 07/14/23 07/14/23 07/14/23 Range/Units 03:41 03:41 06:36 WBC 16.0 H (3.8-10.6) k/uL RBC 2.77 L (3.80-5.40) m/uL Hgb 8.1 L (11.4-16.0) gm/dL Hct 25.1 L (34.0-46.0) % Plt Count 95 L (150-450) k/uL Sodium 133 L (137-145) mmol/L Chloride 109 H (98-107) mmol/L BUN 56 H (7-17) mg/dL Creatinine 1.30 H (0.52-1.04) mg/dL Glucose 118 H (74-99) mg/dL POC Glucose (mg/dL) 134 H (70-110) mg/dL Calcium 7.9 L (8.4-10.2) mg/dL Microbiology - Last 24 Hours (Table) 07/12/23 20:45 Blood Culture Gram Stain - Preliminary Blood Blood Culture - Preliminary Beta Hemolytic Strep Group G 07/12/23 22:31 Gram Stain - Preliminary Leg - Right Assessment and Plan (1) Cellulitis of right leg Current Visit: Yes Status: Acute Code(s): L03.115 - CELLULITIS OF RIGHT LOWER LIMB SNOMED Code(s): 68637962858831982 (2) Leukocytosis Current Visit: Yes Status: Acute Code(s): D72.829 - ELEVATED WHITE BLOOD CELL COUNT, UNSPECIFIED SNOMED Code(s): 049103993 (3) Bacteremia Current Visit: Yes Status: Acute Code(s): R78.81 - BACTEREMIA SNOMED Code(s): 0354527 (4) Chronic wound of extremity Current Visit: Yes Status: Acute Code(s): BKZ2623 - SNOMED Code(s): 08015450397543 Plan: 1patient was in the hospital with sepsis in this patient who did have a fever tachycardia elevated white count source likely right lower extremity wound with secondary cellulitis as currently no other obvious focus of infection patient did not have respiratory symptoms lungs are clear to auscultation chest x-ray was negative abdominal soft urine is negative, we will likely need to cover for the gram-positive skin rodney to be the likely pathogen 2patient did have group G strep bacteremia source likely right lower extremity wound and cellulitis 3blood cultures will be repeated augment clearance of bacteremia 4discontinue vancomycin and Rocephin 5start the patient on Unasyn 3 g every 6 hours Daughter at the bedside questions answered Dictation was produced using [employer] dictation software. please excuse any grammatical, word or spelling errors. Time with Patient: Greater than 30
[2023-07-14 12:28] LABS: Glucose,Whole Blood 150 mg/dL (70-110)
[2023-07-14] MEDS: POTASSIUM CHLORIDE ER 20 MEQ TAB.ER PO SCH (12:30)
--- NOTE | 2023-07-14 12:37 | P.PN ---
Subjective Progress Note Date: 07/14/23 Principal diagnosis: Sepsis, septic shock, and gram-positive bacteremia This is an 88-year-old female with history of multiple medical problems including chronic right lower extremity nonhealing ulcer, chronic atrial fibrillation, chronic anemia, dementia, dyslipidemia, history of aortic valve stenosis and previous TAVR, type 2 diabetes, essential hypertension, mild obstructive lung disease and restrictive lung disease, brought into the emergency room yesterday mostly with concern of family members about her confusion and low-grade fever. Patient developed chills and mental status change, patient had no symptoms of cough, no shortness of breath, no headache, no neck pain, no nausea, no abdominal pain, no melena, no hematemesis. Patient does have history of chronic right lower extremity ulcer, and has required antibiotics in the past for this ulcer, continues to follow-up usually with the wound care center for her ulcer. In the ER, patient had a relatively normal CT of the brain, chest x-ray was also unremarkable, patient was noted to be hypotensive, and she received fluid boluses, did not require any epinephrine initially, but today after I saw the patient and she was getting fluids at 150 cc/h, patient developed hypotension requiring norepinephrine, and I felt that the patient has sepsis and possibly septic shock. And the patient is receiving antibiotic in the form of vancomycin and Rocephin. Blood cultures are pending. WBC count is 13.8 hemoglobin is 8.4. Basic metabolic profile is normal creatinine went up from 1.32 up to 1.40 in less than 24 hours. Patient had negative drug screen, negative influenza a influenza B RSV and COVID-19 screenin g. Analysis was noted to be unremarkable. Lactic acid on admission was 1.1 hemoglobin this morning was 8.4, her hemoglobin on admission was 10.5, reminded patient received few liters of fluid since admission Patient was reevaluated today on 07/14/23, patient remains in the ICU, still requiring norepinephrine at 0.05 mcg/kg/min. Blood cultures on this patient came back positive for beta-hemolytic strep group G, her wound cultures came back positive for beta-hemolytic strep and gram-negative bacilli. Her antibiotics were transitioned to Unasyn, clinically the patient is feeling better, she is more awake today, her blood pressure seems to be stabilizing, and she is on a very minimal dose of norepinephrine which would likely be discontinued in the next few hours norepinephrine is being titrated down. WBC count today is 16 hemoglobin 8.1 basic metabolic profile is normal renal profile is improving creatinine is down to 1.30 from 1.40 yesterday. Objective - Vital Signs Vital signs: Vital Signs Temp 98.2 F 07/14/23 08:15 Pulse 90 07/14/23 10:00 Resp 19 07/14/23 10:00 BP 113/53 07/14/23 10:00 Pulse Ox 94 L 07/14/23 10:00 FiO2 Intake & Output 07/13/23 07/14/23 07/14/23 18:59 06:59 18:59 Intake Total 2965.017 1800 818.983 Output Total 1035 605 300 Balance 1283.736 0683 518.983 Weight 87.9 kg Intake: IV 1160 1300 200 Sodium Chloride 0.9% 1, 1160 1300 200 000 ml @ 100 mls/hr IV . Q10H ERIK Rx#:[id number] Intake, IV Titration 1125.017 128.983 Amount Norepinephrine 4 mg In 125.017 128.983 Sodium Chloride 0.9% 250 ml @ 0.03 MCG/KG/MIN 9. 487 mls/hr IV .Q24H ERIK Rx#:[id number] Sodium Chloride 0.9% 1, 1000 000 ml @ 100 mls/hr IV . Q10H ERIK Rx#:[id number] Oral 680 500 490 Output: Urine 1035 605 300 Other: Voiding Method Indwelling Catheter Indwelling Catheter # Bowel Movements 1 - Exam General: The patient not in respiratory distress. On room air Skin: Skin is warm and dry chronic large nonhealing ulcer noted on the distal aspect of the right lower extremity above the ankle Eye: Pupils are equal, round and reactive to light, extra-ocular movements are intact; there is normal conjunctiva bilaterally. Ears, nose, mouth and throat: There are moist mucous membranes and no oral lesions. Neck: The neck is supple, there is no tenderness or JVD. Cardiovascular: Irregular irregular rhythm, 2/6 systolic murmur throughout the precordium Respiratory: Clear bilaterally no rhonchi no wheezes Gastrointestinal: Soft, non-distended, non-tender abdomen without masses or organomegaly noted. There is no rebound or guarding present. Bowel sounds are unremarkable. Musculoskeletal: Normal ROM, no tenderness Extremities: No clubbing, no cyanosis, patient has a chronic nonhealing ulcer noted in the right lower extremity just above the right ankle. Neurological: Alert oriented x 3 no gross focal deficit Psychiatric: Normal mood and affect and normal mental status examination. - Labs CBC & Chem 7: 07/14/23 03:41 07/14/23 03:41 Labs: Abnormal Lab Results - Last 24 Hours (Table) 07/14/23 07/14/23 07/14/23 Range/Units 03:41 03:41 06:36 WBC 16.0 H (3.8-10.6) k/uL RBC 2.77 L (3.80-5.40) m/uL Hgb 8.1 L (11.4-16.0) gm/dL Hct 25.1 L (34.0-46.0) % Plt Count 95 L (150-450) k/uL Sodium 133 L (137-145) mmol/L Chloride 109 H (98-107) mmol/L BUN 56 H (7-17) mg/dL Creatinine 1.30 H (0.52-1.04) mg/dL Glucose 118 H (74-99) mg/dL POC Glucose (mg/dL) 134 H (70-110) mg/dL Calcium 7.9 L (8.4-10.2) mg/dL 07/14/23 Range/Units 12:26 WBC (3.8-10.6) k/uL RBC (3.80-5.40) m/uL Hgb (11.4-16.0) gm/dL Hct (34.0-46.0) % Plt Count (150-450) k/uL Sodium (137-145) mmol/L Chloride (98-107) mmol/L BUN (7-17) mg/dL Creatinine (0.52-1.04) mg/dL Glucose (74-99) mg/dL POC Glucose (mg/dL) 150 H (70-110) mg/dL Calcium (8.4-10.2) mg/dL Microbiology - Last 24 Hours (Table) 07/12/23 22:31 Gram Stain - Preliminary Leg - Right Wound Culture - Preliminary Beta Hemolytic Strep Group G Gram Neg Bacilli 07/12/23 20:45 Blood Culture Gram Stain - Preliminary Blood Blood Culture - Preliminary Beta Hemolytic Strep Group G Assessment and Plan Assessment: Impression: Hypotension, secondary to septic shock and gram-positive bacteremia with right lower extremity cellulitis Chronic infected right lower extremity ulcer is the most likely source of her infection and sepsis Chronic anemia Type 2 diabetes with diabetic nephropathy Acute on chronic kidney injury most likely secondary to sepsis/acute tubular necrosis Toxic metabolic encephalopathy History of underlying dementia History of chronic anemia History of benign positional vertigo History of underlying COPD mild to moderate History of closed fracture of neck of right femur History of aortic stenosis and previous TAVR History of GERD Benign essential hypertension Dyslipidemia Insomnia Chronic fatigue Chronic atrial fibrillation Recommendation: Continue to monitor in the ICU Titrate and possibly discontinue norepinephrine today. Continue sliding scale insulin Continue to monitor renal status, slightly improving today compared to yesterday. Continue to hold blood pressure medications as long as she is on norepinephrine Continue DVT prophylaxis/Eliquis Continue IV fluids Continue antibiotics, patient now is on Unasyn Will continue to follow. Time with Patient: Less than 30
[2023-07-14] MEDS: COLLAGENASE 250 UNIT/GM OINTMENT 30 GM TUBE TOPICAL SCH (14:29)
[2023-07-14] MEDS: AMPICILLIN-SULBACTAM 3 GM in SODIUM CHLORIDE 0.9% 100 ML IVPB SCH (14:29)
--- NOTE | 2023-07-14 14:31 | P.PN ---
Subjective Progress Note Date: 07/14/23 (delayed charting seen at 1015) Patient is a 88-year-old female with diabetes mellitus type 2 with peripheral neuropathy, A-fib on Eliquis, COPD, hypertension, dyslipidemia, and chronic right lower extremity nonhealing ulcer who presented to the emergency department due to confusion and fever. On arrival to the ER here vital signs were remarkable for temperature of 102.3 and a pulse of 140. Laboratory analysis was remarkable for white blood cell count 13.7, hemoglobin 10.5, platelets 127, c reatinine 1.32. Cepheid 4 Plex was negative. Drug screen was negative. Chest x-ray demonstrated no acute process CT head demonstrated moderate atrophy with microvascular ischemic changes. It was felt that her sepsis was likely secondary to her right lower extremity ulcer. She was started on ceftriaxone and vancomycin. Infectious disease was consulted and she was started on normal saline. She became hypotensive overnight and received 1 additional unit of fluid. She again became hypotensive on the morning of 07/13 necessitating norepinephrine. Her blood cultures came back positive for group B strep bacteremia. Patient seen and examined at bedside. She is feeling well. She is hoping to go home today. Explained to her that she is still requiring medications to support her blood pressure. We also discussed that she has a bacteria in her bloodstream. She denies any nausea, vomiting, diarrhea. Vital signs reviewed General: Nontoxic, no distress, appears at stated age Cardiovascular: S1S2 reg, no murmur Lungs: Decreased breath sounds bilateral, no rhonchi, no rales, no accessory muscle use Abdominal: Soft, nontender to palpation, no guarding Ext: No gross muscle atrophy, no edema b/l lower extremities, no contractures Neuro: CN II-XI grossly intact, no focal neuro deficits Psych: Alert, oriented, appropriate affect Derm: Large 6 cm area of ulceration on right anterior hernandez with exposure of muscle and fat, no purulent drainage noted, not malodorous Assessment/Plan: Polymicrobial Infected right lower extremity ulcer with septic shock Toxic metabolic encephalopathy Group B strep bacteremia -Hold all home blood pressure medications - discontinue vanco and rocephin -Unasyn 3 g IV piggyback every 12 hours day #1 -Critical care recommendations: Continue to monitor. Patient now on Unasyn. -Infectious disease recommendations: Start Unasyn, discontinue Vanco and Rocephin. -Wound care recommendations: Santyl, moist gauze, then dry gauze and roll with gauze. Return to wound care center July 23 at 12:45 PM -Wean Levophed as able Acute kidney injury on chronic kidney disease stage III -Hold fosinopril hydrochlorothiazide and Lasix -IV fluids -Repeat labs in a.m. Anemia and thrombocytopenia, chronic and near baseline - no indication for transfusion - follow CBC Diabetes mellitus type 2 -Hold metformin -Sliding scale insulin -Check A1c -Follow blood sugars Imaging: None new Data Review: Labs reviewed from today include CBC and basic metabolic profile which are remarkable for white blood cell count 16, hemoglobin 8.1, sodium 133, creatinine 1.3. -Blood cultures positive for group B strep DVT prophylaxis: Eliquis Anticipated discharge date: Pending Clinical Course Anticipated discharge place: Pending Clinical Course This dictation was prepared using [employer] voice recognition software. Though every attempt is made to correct errors during dictation some may still exist. Objective - Vital Signs Vital signs: Vital Signs Temp 98.3 F 07/14/23 12:30 Pulse 88 07/14/23 14:00 Resp 17 07/14/23 14:00 BP 95/57 07/14/23 14:00 Pulse Ox 95 07/14/23 14:00 FiO2 Intake & Output 07/13/23 07/14/23 07/14/23 18:59 06:59 18:59 Intake Total 2965.017 1800 1436.983 Output Total 1035 605 700 Balance 5869.081 0888 736.983 Weight 87.9 kg Intake: IV 1160 1300 700 Sodium Chloride 0.9% 1, 1160 1300 700 000 ml @ 100 mls/hr IV . Q10H ERIK Rx#:[id number] Intake, IV Titration 1125.017 128.983 Amount Norepinephrine 4 mg In 125.017 128.983 Sodium Chloride 0.9% 250 ml @ 0.03 MCG/KG/MIN 9. 487 mls/hr IV .Q24H ERIK Rx#:[id number] Sodium Chloride 0.9% 1, 1000 000 ml @ 100 mls/hr IV . Q10H ERIK Rx#:[id number] Oral 680 500 608 Output: Urine 1035 605 700 Other: Voiding Method Indwelling Catheter Indwelling Catheter Indwelling Catheter # Bowel Movements 1 - Labs CBC & Chem 7: 07/14/23 03:41 07/14/23 03:41 Labs: Abnormal Lab Results - Last 24 Hours (Table) 07/14/23 07/14/23 07/14/23 Range/Units 03:41 03:41 06:36 WBC 16.0 H (3.8-10.6) k/uL RBC 2.77 L (3.80-5.40) m/uL Hgb 8.1 L (11.4-16.0) gm/dL Hct 25.1 L (34.0-46.0) % Plt Count 95 L (150-450) k/uL Sodium 133 L (137-145) mmol/L Chloride 109 H (98-107) mmol/L BUN 56 H (7-17) mg/dL Creatinine 1.30 H (0.52-1.04) mg/dL Glucose 118 H (74-99) mg/dL POC Glucose (mg/dL) 134 H (70-110) mg/dL Calcium 7.9 L (8.4-10.2) mg/dL 07/14/23 Range/Units 12:26 WBC (3.8-10.6) k/uL RBC (3.80-5.40) m/uL Hgb (11.4-16.0) gm/dL Hct (34.0-46.0) % Plt Count (150-450) k/uL Sodium (137-145) mmol/L Chloride (98-107) mmol/L BUN (7-17) mg/dL Creatinine (0.52-1.04) mg/dL Glucose (74-99) mg/dL POC Glucose (mg/dL) 150 H (70-110) mg/dL Calcium (8.4-10.2) mg/dL Microbiology - Last 24 Hours (Table) 07/12/23 20:30 Blood Culture - Preliminary Blood 07/12/23 22:31 Gram Stain - Preliminary Leg - Right Wound Culture - Preliminary Beta Hemolytic Strep Group G Gram Neg Bacilli 07/12/23 20:45 Blood Culture Gram Stain - Preliminary Blood Blood Culture - Preliminary Beta Hemolytic Strep Group G
[2023-07-14] MEDS ORDERED: VANCOMYCIN 1,500 MG in SODIUM CHLORIDE 0.9% 500 ML 500 ML IVPB SCH (20:00)
[2023-07-14 20:02] LABS: Glucose,Whole Blood 155 mg/dL (70-110)
[2023-07-15] MEDS ORDERED: VANCOMYCIN 1,500 MG in SODIUM CHLORIDE 0.9% 500 ML 500 ML IVPB SCH (02:00)
[2023-07-15 06:21] LABS: HCT 23.2 % (34.0-46.0); HGB 7.5 gm/dL (11.4-16.0); Hypochromasia Slight; MCH 29.3 pg (25.0-35.0); MCHC 32.3 g/dL (31.0-37.0); MCV 90.8 fL (80.0-100.0); Mean Platelet Volume 9.1; RBC 2.55 m/uL (3.80-5.40); RDW 14.3 % (11.5-15.5); WBC 8.1 k/uL (3.8-10.6)
[2023-07-15 06:28] LABS: Glucose,Whole Blood 114 mg/dL (70-110)
[2023-07-15 06:34] LABS: African American GFR (CKD) 46 (>60 ml/min/1.73 sqM); Anion Gap 4 mmol/L; Blood Urea Nitrogen 46 mg/dL (7-17); Carbon Dioxide 20 mmol/L (22-30); Chloride 109 mmol/L (98-107); Glucose 97 mg/dL (74-99); Non-African American GFR(CKD) 40 (>60 ml/min/1.73 sqM); Potassium 3.9 mmol/L (3.5-5.1); Sodium 133 mmol/L (137-145)
[2023-07-15 06:45] LABS: Platelet Count 80 k/uL (150-450)
[2023-07-15] MEDS: POTASSIUM CHLORIDE ER 20 MEQ TAB.ER PO SCH (08:24)
--- NOTE | 2023-07-15 11:31 | P.PN ---
Subjective Progress Note Date: 07/15/23 Principal diagnosis: Sepsis, septic shock, and gram-positive bacteremia This is an 88-year-old female with history of multiple medical problems including chronic right lower extremity nonhealing ulcer, chronic atrial fibrillation, chronic anemia, dementia, dyslipidemia, history of aortic valve stenosis and previous TAVR, type 2 diabetes, essential hypertension, mild obstructive lung disease and restrictive lung disease, brought into the emergency room yesterday mostly with concern of family members about her confusion and low-grade fever. Patient developed chills and mental status change, patient had no symptoms of cough, no shortness of breath, no headache, no neck pain, no nausea, no abdominal pain, no melena, no hematemesis. Patient does have history of chronic right lower extremity ulcer, and has required antibiotics in the past for this ulcer, continues to follow-up usually with the wound care center for her ulcer. In the ER, patient had a relatively normal CT of the brain, chest x-ray was also unremarkable, patient was noted to be hypotensive, and she received fluid boluses, did not require any epinephrine initially, but today after I saw the patient and she was getting fluids at 150 cc/h, patient developed hypotension requiring norepinephrine, and I felt that the patient has sepsis and possibly septic shock. And the patient is receiving antibiotic in the form of vancomycin and Rocephin. Blood cultures are pending. WBC count is 13.8 hemoglobin is 8.4. Basic metabolic profile is normal creatinine went up from 1.32 up to 1.40 in less than 24 hours. Patient had negative drug screen, negative influenza a influenza B RSV and COVID-19 screenin g. Analysis was noted to be unremarkable. Lactic acid on admission was 1.1 hemoglobin this morning was 8.4, her hemoglobin on admission was 10.5, reminded patient received few liters of fluid since admission Patient was reevaluated today on 07/14/23, patient remains in the ICU, still requiring norepinephrine at 0.05 mcg/kg/min. Blood cultures on this patient came back positive for beta-hemolytic strep group G, her wound cultures came back positive for beta-hemolytic strep and gram-negative bacilli. Her antibiotics were transitioned to Unasyn, clinically the patient is feeling better, she is more awake today, her blood pressure seems to be stabilizing, and she is on a very minimal dose of norepinephrine which would likely be discontinued in the next few hours norepinephrine is being titrated down. WBC count today is 16 hemoglobin 8.1 basic metabolic profile is normal renal profile is improving creatinine is down to 1.30 from 1.40 yesterday. Reevaluated today on 07/15/2023, patient remains in the ICU, patient is doing well, not in any distress, she is actually on room air, she is off norepinephrine, she had good urine output, remains on antibiotics for her bacteremia and septic shock presentation, hemodynamically stable. WBC count is 8.1 hemoglobin 7.5 basic metabolic profile is normal renal profile is improving creatinine down to 1.22, patient remains on Unasyn Objective - Vital Signs Vital signs: Vital Signs Temp 98.5 F 07/15/23 08:00 Pulse 86 07/15/23 09:00 Resp 19 07/15/23 09:00 BP 98/60 07/15/23 09:00 Pulse Ox 96 07/15/23 09:00 FiO2 Intake & Output 07/14/23 07/15/23 07/15/23 18:59 06:59 18:59 Intake Total 2242.426 1203.162 800 Output Total 1040 525 65 Balance 1202.426 678.162 735 Weight 92.9 kg Intake: IV 1175 1200 300 Ampicillin-Sulbactam 3 gm 100 In Sodium Chloride 0.9% 100 ml @ 200 mls/hr IVPB Q12H ERIK Rx#:[id number] Sodium Chloride 0.9% 1, 1075 1200 300 000 ml @ 100 mls/hr IV . Q10H ERIK Rx#:[id number] Intake, IV Titration 219.426 3.162 Amount Norepinephrine 4 mg In 219.426 3.162 Sodium Chloride 0.9% 250 ml @ 0.03 MCG/KG/MIN 9. 487 mls/hr IV .Q24H ERIK Rx#:[id number] Oral 848 500 Output: Urine 1040 525 65 Other: Voiding Method Indwelling Catheter Indwelling Catheter Indwelling Catheter - Exam General: The patient not in respiratory distress. On room air Skin: Skin is warm and dry chronic large nonhealing ulcer noted on the distal aspect of the right lower extremity above the ankle Eye: Pupils are equal, round and reactive to light, extra-ocular movements are intact; there is normal conjunctiva bilaterally. Ears, nose, mouth and throat: There are moist mucous membranes and no oral lesions. Neck: The neck is supple, there is no tenderness or JVD. Cardiovascular: Irregular irregular rhythm, 2/6 systolic murmur throughout the precordium Respiratory: Clear bilaterally no rhonchi no wheezes Gastrointestinal: Soft, non-distended, non-tender abdomen without masses or organomegaly noted. There is no rebound or guarding present. Bowel sounds are unremarkable. Musculoskeletal: Normal ROM, no tenderness Extremities: No clubbing, no cyanosis, patient has a chronic nonhealing ulcer noted in the right lower extremity just above the right ankle. Neurological: Alert oriented x 3 no gross focal deficit Psychiatric: Normal mood and affect and normal mental status examination. - Labs CBC & Chem 7: 07/15/23 05:28 07/15/23 05:28 Labs: Abnormal Lab Results - Last 24 Hours (Table) 07/14/23 07/14/23 07/15/23 Range/Units 12:26 20:01 05:28 RBC (3.80-5.40) m/uL Hgb (11.4-16.0) gm/dL Hct (34.0-46.0) % Plt Count (150-450) k/uL Sodium 133 L (137-145) mmol/L Chloride 109 H (98-107) mmol/L Carbon Dioxide 20 L (22-30) mmol/L BUN 46 H (7-17) mg/dL Creatinine 1.22 H (0.52-1.04) mg/dL POC Glucose (mg/dL) 150 H 155 H (70-110) mg/dL Calcium 8.0 L (8.4-10.2) mg/dL 07/15/23 07/15/23 Range/Units 05:28 06:26 RBC 2.55 L (3.80-5.40) m/uL Hgb 7.5 L (11.4-16.0) gm/dL Hct 23.2 L (34.0-46.0) % Plt Count 80 L (150-450) k/uL Sodium (137-145) mmol/L Chloride (98-107) mmol/L Carbon Dioxide (22-30) mmol/L BUN (7-17) mg/dL Creatinine (0.52-1.04) mg/dL POC Glucose (mg/dL) 114 H (70-110) mg/dL Calcium (8.4-10.2) mg/dL Microbiology - Last 24 Hours (Table) 07/12/23 22:31 Gram Stain - Preliminary Leg - Right Wound Culture - Preliminary Beta Hemolytic Strep Group G Enterobacter cloacae Presumptive Staph aureus 07/12/23 20:30 Blood Culture - Preliminary Blood 07/12/23 20:45 Blood Culture Gram Stain - Preliminary Blood Blood Culture - Preliminary Beta Hemolytic Strep Group G Assessment and Plan Assessment: Impression: Hypotension, secondary to septic shock and gram-positive bacteremia with right lower extremity cellulitis Chronic infected right lower extremity ulcer is the most likely source of her infection and sepsis Chronic anemia Type 2 diabetes with diabetic nephropathy Acute on chronic kidney injury most likely secondary to sepsis/acute tubular necrosis Toxic metabolic encephalopathy History of underlying dementia History of chronic anemia History of benign positional vertigo History of underlying COPD mild to moderate History of closed fracture of neck of right femur History of aortic stenosis and previous TAVR History of GERD Benign essential hypertension Dyslipidemia Insomnia Chronic fatigue Chronic atrial fibrillation Recommendation: Thoracic patient out of the ICU to regular medical floor with remote telemetry Patient is now off norepinephrine and not requiring any pressors Continue sliding scale insulin Daily labs and daily renal profile to monitor renal status Continue to hold blood pressure medications for now unless the patient becomes hypertensive Continue DVT prophylaxis/Eliquis Continue IV fluids Continue antibiotics, patient now is on Unasyn Will continue to follow. Time with Patient: Less than 30
--- NOTE | 2023-07-15 12:14 | P.PN ---
Subjective Progress Note Date: 07/15/23 Principal diagnosis: Reason for follow-up is sepsis right leg wound and cellulitis Patient is a 88-year-old female with a past medical history significant for diabetes mellitus hypertension hyperlipidemia COPD atrial fibrillation patient also have a chronic nonhealing wound to the right lower extremity and presented to the hospital with fever confusion patient was noted to be septic possibly to the right lower extremity wound infection and cellulitis. On today's evaluation that is 07/15/2023,the patient denies any fever or any chills, patient is breathing comfortably on room air, the patient denies chest pain shortness of breath and no significant cough, patient denies abdominal pain, no nausea vomiting or diarrhea. Patient pain to the right lower extremity decreased in intensity. Patient white count normalized to 8.1, creatinine is 1.22 blood cultures with group B strep, local culture growing Enterobacter and group B strep Objective - Vital Signs Vital signs: Vital Signs Temp 98.5 F 07/15/23 08:00 Pulse 86 07/15/23 09:00 Resp 19 07/15/23 09:00 BP 98/60 07/15/23 09:00 Pulse Ox 96 07/15/23 09:00 FiO2 Intake & Output 07/14/23 07/15/23 07/15/23 18:59 06:59 18:59 Intake Total 2242.426 1203.162 800 Output Total 1040 525 65 Balance 1202.426 678.162 735 Weight 92.9 kg Intake: IV 1175 1200 300 Ampicillin-Sulbactam 3 gm 100 In Sodium Chloride 0.9% 100 ml @ 200 mls/hr IVPB Q12H [facility] Rx#:[id number] Sodium Chloride 0.9% 1, 1075 1200 300 000 ml @ 100 mls/hr IV . Q10H [facility] Rx#:[id number] Intake, IV Titration 219.426 3.162 Amount Norepinephrine 4 mg In 219.426 3.162 Sodium Chloride 0.9% 250 ml @ 0.03 MCG/KG/MIN 9. 487 mls/hr IV .Q24H [facility] Rx#:[id number] Oral 848 500 Output: Urine 1040 525 65 Other: Voiding Method Indwelling Catheter Indwelling Catheter Indwelling Catheter - Exam GENERAL DESCRIPTION: An elderly female lying in bed in no distress RESPIRATORY SYSTEM: Unlabored breathing , decreased breath sounds at bases HEART: S1 S2 regular rate and rhythm , ABDOMEN: Soft , no tenderness EXTREMITIES: Right leg wound is currently dressed no drainage on the dressing - Labs CBC & Chem 7: 07/15/23 05:28 07/15/23 05:28 Labs: Abnormal Lab Results - Last 24 Hours (Table) 07/14/23 07/14/23 07/15/23 Range/Units 12:26 20:01 05:28 RBC (3.80-5.40) m/uL Hgb (11.4-16.0) gm/dL Hct (34.0-46.0) % Plt Count (150-450) k/uL Sodium 133 L (137-145) mmol/L Chloride 109 H (98-107) mmol/L Carbon Dioxide 20 L (22-30) mmol/L BUN 46 H (7-17) mg/dL Creatinine 1.22 H (0.52-1.04) mg/dL POC Glucose (mg/dL) 150 H 155 H (70-110) mg/dL Calcium 8.0 L (8.4-10.2) mg/dL 07/15/23 07/15/23 Range/Units 05:28 06:26 RBC 2.55 L (3.80-5.40) m/uL Hgb 7.5 L (11.4-16.0) gm/dL Hct 23.2 L (34.0-46.0) % Plt Count 80 L (150-450) k/uL Sodium (137-145) mmol/L Chloride (98-107) mmol/L Carbon Dioxide (22-30) mmol/L BUN (7-17) mg/dL Creatinine (0.52-1.04) mg/dL POC Glucose (mg/dL) 114 H (70-110) mg/dL Calcium (8.4-10.2) mg/dL Microbiology - Last 24 Hours (Table) 07/12/23 22:31 Gram Stain - Preliminary Leg - Right Wound Culture - Preliminary Beta Hemolytic Strep Group G Enterobacter cloacae Presumptive Staph aureus 07/12/23 20:30 Blood Culture - Preliminary Blood 07/12/23 20:45 Blood Culture Gram Stain - Preliminary Blood Blood Culture - Preliminary Beta Hemolytic Strep Group G Assessment and Plan (1) Cellulitis of right leg Current Visit: Yes Status: Acute Code(s): L03.115 - CELLULITIS OF RIGHT LOWER LIMB SNOMED Code(s): 23732460202384237 (2) Leukocytosis Current Visit: Yes Status: Acute Code(s): D72.829 - ELEVATED WHITE BLOOD CELL COUNT, UNSPECIFIED SNOMED Code(s): 074220148 (3) Bacteremia Current Visit: Yes Status: Acute Code(s): R78.81 - BACTEREMIA SNOMED Code(s): 3956905 (4) Chronic wound of extremity Current Visit: Yes Status: Acute Code(s): MLC3167 - SNOMED Code(s): 89629123428167 Plan: 1patient was in the hospital with sepsis in this patient who did have a fever tachycardia elevated white count source likely right lower extremity wound with secondary cellulitis as currently no other obvious focus of infection patient did not have respiratory symptoms lungs are clear to auscultation chest x-ray was negative abdominal soft urine is negative, we will likely need to cover for the gram-positive skin rodney to be the likely pathogen 2patient did have group G strep bacteremia source likely right lower extremity wound and cellulitis 3blood cultures has been repeated augment clearance of bacteremia 4local culture growing group B strep as well as Enterobacter that is resistant to Unasyn and Staph aureus sensitivities pending 5patient to continue with the Unasyn we will add Cipro to cover for the Enterobacter antibiotic treatment course closely Dictation was produced using [employer] software. please excuse any grammatical, word or spelling errors.
--- NOTE | 2023-07-15 13:36 | P.PN ---
Subjective Progress Note Date: 07/15/23 Patient is a 88-year-old female with diabetes mellitus type 2 with peripheral neuropathy, A-fib on Eliquis, COPD, hypertension, dyslipidemia, and chronic right lower extremity nonhealing ulcer who presented to the emergency department due to confusion and fever. On arrival to the ER here vital signs were remarkable for temperature of 102.3 and a pulse of 140. Laboratory analysis was remarkable for white blood cell count 13.7, hemoglobin 10.5, platelets 127, creatinine 1.32. Cepheid 4 Plex was negative. Drug screen was negative. Chest x-ray demonstrated no acute process CT head demonstrated moderate atrophy with microvascular ischemic changes. It was felt that her sepsis was likely s econdary to her right lower extremity ulcer. She was started on ceftriaxone and vancomycin. Infectious disease was consulted and she was started on normal saline. She became hypotensive overnight and received 1 additional unit of fluid. She again became hypotensive on the morning of 07/13 necessitating norepinephrine. Her blood cultures came back positive for group B strep bacteremia. She was able to be weaned off pressors on 07/14. She continued to improve. Patient seen and examined at bedside. She is feeling well. Asking when she can go home. Denies any chest pain or shortness of breath. No nausea or vomiting. No diarrhea. Vital signs reviewed General: Nontoxic, no distress, appears at stated age Cardiovascular: S1S2 reg, no murmur Lungs: Decreased breath sounds bilateral, no rhonchi, no rales, no accessory muscle use Abdominal: Soft, nontender to palpation, no guarding Ext: No gross muscle atrophy, no edema b/l lower extremities, no contractures,3+ right lower extremity edema, Neuro: CN II-XI grossly intact, no focal neuro deficits Psych: Alert, oriented, appropriate affect Derm: Large 6 cm area of ulceration on right anterior hernandez with exposure of muscle and fat, no purulent drainage noted, not malodorous Assessment/Plan: Polymicrobial Infected right lower extremity ulcer with septic shock Toxic metabolic encephalopathy Group B strep bacteremia -Hold all home blood pressure medications - discontinue vanco and rocephin -Unasyn 3 g IV piggyback every 12 hours day #2, ciprofloxacin 500 mg oral twice daily day #1 -Await further critical care recommendations -Case discussed with Dr. Ornelas. Anticipate patient could likely be discharged h ome on oral antibiotics such as Augmentin. Currently continue Unasyn and Cipro while awaiting for final PENNY's. -Wound care recommendations: Santyl, moist gauze, then dry gauze and roll with gauze. Return to wound care center July 23 at 12:45 PM Acute kidney injury on chronic kidney disease stage III -Hold fosinopril hydrochlorothiazide and Lasix - stop IVF, patient is eating and drinking well -Repeat labs in a.m. Anemia and thrombocytopenia, chronic and near baseline - no indication for transfusion - check iron studies - follow CBC Diabetes mellitus type 2 -Hold metformin -Sliding scale insulin -A1c 5.4 -Follow blood sugars Imaging: None new Data Review: Labs reviewed from today include CBC and basic metabolic profile which are remarkable for hemoglobin 7.1, platelets 80, sodium 133, BUN 46, creatinine 1.22. Wound culture reviewed showing beta-hemolytic strep, Enterobacter, and possible Staph aureus. DVT prophylaxis: Eliquis Anticipated discharge date: Pending Clinical Course Anticipated discharge place: Pending Clinical Course This dictation was prepared using [employer] voice recognition software. Though every attempt is made to correct errors during dictation some may still exist. Objective - Vital Signs Vital signs: Vital Signs Temp 98.5 F 07/15/23 08:00 Pulse 86 07/15/23 09:00 Resp 19 07/15/23 09:00 BP 98/60 07/15/23 09:00 Pulse Ox 96 07/15/23 09:00 FiO2 Intake & Output 07/14/23 07/15/23 07/15/23 18:59 06:59 18:59 Intake Total 2242.426 1203.162 800 Output Total 1040 525 65 Balance 1202.426 678.162 735 Weight 92.9 kg Intake: IV 1175 1200 300 Ampicillin-Sulbactam 3 gm 100 In Sodium Chloride 0.9% 100 ml @ 200 mls/hr IVPB Q12H [facility] Rx#:[id number] Sodium Chloride 0.9% 1, 1075 1200 300 000 ml @ 100 mls/hr IV . Q10H [facility] Rx#:[id number] Intake, IV Titration 219.426 3.162 Amount Norepinephrine 4 mg In 219.426 3.162 Sodium Chloride 0.9% 250 ml @ 0.03 MCG/KG/MIN 9. 487 mls/hr IV .Q24H [facility] Rx#:[id number] Oral 848 500 Output: Urine 1040 525 65 Other: Voiding Method Indwelling Catheter Indwelling Catheter Indwelling Catheter - Labs CBC & Chem 7: 07/15/23 05:28 07/15/23 05:28 Labs: Abnormal Lab Results - Last 24 Hours (Table) 07/14/23 07/15/23 07/15/23 Range/Units 20:01 05:28 05:28 RBC 2.55 L (3.80-5.40) m/uL Hgb 7.5 L (11.4-16.0) gm/dL Hct 23.2 L (34.0-46.0) % Plt Count 80 L (150-450) k/uL Sodium 133 L (137-145) mmol/L Chloride 109 H (98-107) mmol/L Carbon Dioxide 20 L (22-30) mmol/L BUN 46 H (7-17) mg/dL Creatinine 1.22 H (0.52-1.04) mg/dL POC Glucose (mg/dL) 155 H (70-110) mg/dL Calcium 8.0 L (8.4-10.2) mg/dL 07/15/23 Range/Units 06:26 RBC (3.80-5.40) m/uL Hgb (11.4-16.0) gm/dL Hct (34.0-46.0) % Plt Count (150-450) k/uL Sodium (137-145) mmol/L Chloride (98-107) mmol/L Carbon Dioxide (22-30) mmol/L BUN (7-17) mg/dL Creatinine (0.52-1.04) mg/dL POC Glucose (mg/dL) 114 H (70-110) mg/dL Calcium (8.4-10.2) mg/dL Microbiology - Last 24 Hours (Table) 07/12/23 22:31 Gram Stain - Preliminary Leg - Right Wound Culture - Preliminary Beta Hemolytic Strep Group G Enterobacter cloacae Presumptive Staph aureus 07/12/23 20:30 Blood Culture - Preliminary Blood 07/12/23 20:45 Blood Culture Gram Stain - Preliminary Blood Blood Culture - Preliminary Beta Hemolytic Strep Group G
[2023-07-15 16:55] LABS: Glucose,Whole Blood 121 mg/dL (70-110)
[2023-07-15 16:56] LABS: % Iron Saturation 3.09 (12.00-45.00); Ferritin 69.9 ng/mL (10.0-291.0)
[2023-07-15] MEDS: FUROSEMIDE 10 MG/ML 4 ML VIAL IV STA (17:56)
[2023-07-15 20:35] LABS: Glucose,Whole Blood 189 mg/dL (70-110)
[2023-07-15] MEDS: CIPROFLOXACIN HCL 500 MG TAB PO SCH (21:13)
[2023-07-16] MEDS: HYDROcodone/APAP 5-325MG 1 EACH TAB PO STA (00:43)
[2023-07-16 03:02] LABS: HCT 23.5 % (34.0-46.0); HGB 7.8 gm/dL (11.4-16.0); MCH 29.4 pg (25.0-35.0); MCHC 33.4 g/dL (31.0-37.0); Mean Platelet Volume 9.7; RBC 2.67 m/uL (3.80-5.40); RDW 14.3 % (11.5-15.5); WBC 7.6 k/uL (3.8-10.6)
[2023-07-16 03:04] LABS: Platelet Count 82 k/uL (150-450)
[2023-07-16 03:43] LABS: African American GFR (CKD) 54 (>60 ml/min/1.73 sqM); Anion Gap 5 mmol/L; Blood Urea Nitrogen 42 mg/dL (7-17); Calcium 8.2 mg/dL (8.4-10.2); Carbon Dioxide 21 mmol/L (22-30); Chloride 106 mmol/L (98-107); Glucose 106 mg/dL (74-99); Non-African American GFR(CKD) 47 (>60 ml/min/1.73 sqM); Sodium 132 mmol/L (137-145)
[2023-07-16 05:52] LABS: Glucose,Whole Blood 128 mg/dL (70-110)
[2023-07-16] MEDS: AMPICILLIN-SULBACTAM 3 GM in SODIUM CHLORIDE 0.9% 100 ML IVPB SCH (10:31)
[2023-07-16 11:19] LABS: Glucose,Whole Blood 147 mg/dL (70-110)
--- NOTE | 2023-07-16 11:37 | P.PN ---
Subjective Progress Note Date: 07/16/23 Principal diagnosis: Reason for follow-up is sepsis right leg wound and cellulitis Patient is a 88-year-old female with a past medical history significant for diabetes mellitus hypertension hyperlipidemia COPD atrial fibrillation patient also have a chronic nonhealing wound to the right lower extremity and presented to the hospital with fever confusion patient was noted to be septic possibly to the right lower extremity wound infection and cellulitis. On today's evaluation that is 07/16/2023,the patient did spike a fever of 101.1 F after midnight patient is afebrile since then, patient is on room air not requiring supplemental oxygen and denies any shortness of breath no chest pain or cough.Patient denies having any nausea or vomiting, no abdominal pain and no diarrhea has been reported, also noticed to have a worsening erythema to the right lower extremity especially thigh area. Patient did have a white count of 7.6, creatinine 1.08 blood culture repeat is currently pending Objective - Vital Signs Vital signs: Vital Signs Temp 98.4 F 07/16/23 07:26 Pulse 87 07/16/23 08:30 Resp 16 07/16/23 08:30 BP 112/63 07/16/23 07:26 Pulse Ox 95 07/16/23 07:26 FiO2 Intake & Output 07/15/23 07/16/23 07/16/23 18:59 06:59 18:59 Intake Total 1036 Output Total 65 1000 Balance 971 -1000 Weight 93.5 kg Intake: IV 300 Sodium Chloride 0.9% 1, 300 000 ml @ 100 mls/hr IV . Q10H [facility] Rx#:[id number] Oral 736 Output: Urine 65 1000 Other: Voiding Method Indwelling Catheter Toilet Toilet External Catheter External Catheter # Voids 4 - Exam GENERAL DESCRIPTION: An elderly female lying in bed in no distress RESPIRATORY SYSTEM: Unlabored breathing , decreased breath sounds at bases HEART: S1 S2 regular rate and rhythm , ABDOMEN: Soft , no tenderness EXTREMITIES: Right leg wound base with some slough tissue no foul-smelling drainage noticed to have worsening erythema to the left thigh leg area - Labs CBC & Chem 7: 07/16/23 02:33 07/16/23 02:33 Labs: Abnormal Lab Results - Last 24 Hours (Table) 07/15/23 07/15/23 07/15/23 Range/Units 05:28 16:46 20:32 RBC (3.80-5.40) m/uL Hgb (11.4-16.0) gm/dL Hct (34.0-46.0) % Plt Count (150-450) k/uL Sodium (137-145) mmol/L Carbon Dioxide (22-30) mmol/L BUN (7-17) mg/dL Creatinine (0.52-1.04) mg/dL Glucose (74-99) mg/dL POC Glucose (mg/dL) 121 H 189 H (70-110) mg/dL Calcium (8.4-10.2) mg/dL Iron 9 L (50-170) UG/DL % Saturation 3.09 L (12.00-45.00) 07/16/23 07/16/23 07/16/23 Range/Units 02:33 02:33 05:47 RBC 2.67 L (3.80-5.40) m/uL Hgb 7.8 L (11.4-16.0) gm/dL Hct 23.5 L (34.0-46.0) % Plt Count 82 L (150-450) k/uL Sodium 132 L (137-145) mmol/L Carbon Dioxide 21 L (22-30) mmol/L BUN 42 H (7-17) mg/dL Creatinine 1.08 H (0.52-1.04) mg/dL Glucose 106 H (74-99) mg/dL POC Glucose (mg/dL) 128 H (70-110) mg/dL Calcium 8.2 L (8.4-10.2) mg/dL Iron (50-170) UG/DL % Saturation (12.00-45.00) 07/16/23 Range/Units 11:18 RBC (3.80-5.40) m/uL Hgb (11.4-16.0) gm/dL Hct (34.0-46.0) % Plt Count (150-450) k/uL Sodium (137-145) mmol/L Carbon Dioxide (22-30) mmol/L BUN (7-17) mg/dL Creatinine (0.52-1.04) mg/dL Glucose (74-99) mg/dL POC Glucose (mg/dL) 147 H (70-110) mg/dL Calcium (8.4-10.2) mg/dL Iron (50-170) UG/DL % Saturation (12.00-45.00) Microbiology - Last 24 Hours (Table) 07/12/23 22:31 Gram Stain - Final Leg - Right Wound Culture - Final Beta Hemolytic Strep Group G Enterobacter cloacae Staphylococcus aureus 07/14/23 08:22 Blood Culture - Preliminary Blood 07/12/23 20:45 Blood Culture Gram Stain - Final Blood Blood Culture - Final Beta Hemolytic Strep Group G 07/12/23 20:30 Blood Culture - Preliminary Blood Assessment and Plan (1) Cellulitis of right leg Current Visit: Yes Status: Acute Code(s): L03.115 - CELLULITIS OF RIGHT LOWER LIMB SNOMED Code(s): 63563769983257434 (2) Leukocytosis Current Visit: Yes Status: Acute Code(s): D72.829 - ELEVATED WHITE BLOOD CELL COUNT, UNSPECIFIED SNOMED Code(s): 581493618 (3) Bacteremia Current Visit: Yes Status: Acute Code(s): R78.81 - BACTEREMIA SNOMED Code(s): 1445551 (4) Chronic wound of extremity Current Visit: Yes Status: Acute Code(s): RVG6273 - SNOMED Code(s): 09698522238483 Plan: 1patient presented to the hospital with sepsis in this patient who did have a fever tachycardia elevated white count source likely right lower extremity wound with secondary cellulitis as currently no other obvious focus of infection patient did not have respiratory symptoms lungs are clear to auscultation chest x-ray was negative abdominal soft urine is negative, we will likely need to cov er for the gram-positive skin rodney to be the likely pathogen 2patient did have group G strep bacteremia source likely right lower extremity wound and cellulitis 3blood cultures has been repeated augment clearance of bacteremia 4local culture growing group B strep as well as Enterobacter that is resistant to Unasyn and MSSA 5patient did have worsening of her cellulitis to the right lower extremity and also spiked a fever which is slightly concerning we will repeat cultures get a consultation with vascular surgery for debridement of the wound and deep culture this was discussed with the [facility] for vascular surgery we will also obtain bone scan as the patient had this wound for more than a year and has switched antibiotic therapy to Zosyn, care has been discussed detail with the daughter at the bedside and son on the phone multiple question Answered Dictation was produced using [employer] software. please excuse any grammatical, word or spelling errors. Time with Patient: Greater than 30
--- NOTE | 2023-07-16 12:56 | US ---
EXAMINATION TYPE: US venous doppler duplex LE RT DATE OF EXAM: 07/16/2023 12:36 PM COMPARISON: None CLINICAL INDICATION: Female, 88 years old with history of right lower extremity edema; Right leg red, painful, and swollen SIDE PERFORMED: Right TECHNIQUE: The lower extremity deep venous system is examined utilizing real time linear array sonog coco with graded compression, doppler sonography and color-flow sonography. VESSELS IMAGED: Common Femoral Vein Deep Femoral Vein Greater Saphenous Vein * Femoral Vein Popliteal Vein Small Saphenous Vein * Proximal Calf Veins (* superficial vessels) Right Leg: Pt unable to tolerate compression due to pain and swelling- color and doppler flow appear negative for DVT Multiple enlarged lymph nodes within right groin. Generalized subcutaneous soft tissue swelling. IMPRESSION: 1. Generalized subcutaneous soft tissue swelling. Inguinal adenopathy which may be reactive. Correlat e for any suspicious clinical features that would warrant tissue sampling. Follow-up recommended. 2. Patient had pain which limited our ability for compression. No visualized DVT in the right lower e xtremity imaged from the groin to the upper calf.
--- NOTE | 2023-07-16 13:22 | P.PN ---
Subjective Progress Note Date: 07/16/23 Patient is a 88-year-old female with diabetes mellitus type 2 with peripheral neuropathy, A-fib on Eliquis, COPD, hypertension, dyslipidemia, and chronic right lower extremity nonhealing ulcer who presented to the emergency department due to confusion and fever. On arrival to the ER here vital signs were remarkable for temperature of 102.3 and a pulse of 140. Laboratory analysis was remarkable for white blood cell count 13.7, hemoglobin 10.5, platelets 127, creatinine 1.32. Cepheid 4 Plex was negative. Drug screen was negative. Chest x-ray demonstrated no acute process CT head demonstrated moderate atrophy with microvascular ischemic changes. It was felt that her sepsis was likely secondary to her right lower extremity ulcer. She was started on ceftriaxone and vancomycin. Infectious disease was consulted and she was started on normal saline. She became hypotensive overnight and received 1 additional unit of fluid. She again became hypotensive on the morning of 07/13 necessitating nor epinephrine. Her blood cultures came back positive for group B strep bacteremia. She was able to be weaned off pressors on 07/14. She continued to improve. However, now having worsening cellulitis, and having fevers again. Antibiotics broadened. ID following. Also consulted vascular surgery for debridement and deep cultures. Patient seen and examined at bedside. Was febrile overnight. Vital signs reviewed General: Nontoxic, no distress, appears at stated age Cardiovascular: S1S2 reg, no murmur Lungs: Decreased breath sounds bilateral, no rhonchi, no rales, no accessory muscle use Abdominal: Soft, nontender to palpation, no guarding Ext: No gross muscle atrophy, no edema b/l lower extremities, no contractures,3+ right lower extremity edema, Neuro: CN II-XI grossly intact, no focal neuro deficits Psych: Alert, oriented, appropriate affect Derm: Large 6 cm area of ulceration on right anterior hernandez with exposure of muscle and fat, no purulent drainage noted, not malodorous, worsening erythema and warmth Assessment/Plan: Polymicrobial Infected right lower extremity ulcer with septic shock Toxic metabolic encephalopathy Group B strep bacteremia -Hold all home blood pressure medications -ID note reviewed, started on IV Zosyn, vascular surgery consulted for possible debridement and deep wound cultures, also getting a bone scan. -Wound care recommendations: Santyl, moist gauze, then dry gauze and roll with gauze. Return to wound care center July 23 at 12:45 PM Acute kidney injury on chronic kidney disease stage III resolving -Hold fosinopril hydrochlorothiazide and Lasix - stop IVF, patient is eating and drinking well -She did get a dose of IV Lasix yesterday, repeat labs in the morning Anemia and thrombocytopenia, chronic and near baseline Iron deficiency anemia - no indication for transfusion -Started on oral iron, and ascorbic acid - follow CBC Diabetes mellitus type 2 -Hold metformin -Sliding scale insulin -A1c 5.4 -Follow blood sugars Imaging: None new Data Review: Wound cultures growing MSSA, Enterobacter and beta-hemolytic strep G, blood cul tures have been negative growth to date, hemoglobin 7.8, platelet 82, creatinine 1.08, sodium 132, blood sugars range between 10 6-1 89. DVT prophylaxis: Eliquis Anticipated discharge date: Pending Clinical Course Anticipated discharge place: Pending Clinical Course Objective - Vital Signs Vital signs: Vital Signs Temp 98.4 F 07/16/23 07:26 Pulse 87 07/16/23 08:30 Resp 16 07/16/23 08:30 BP 112/63 07/16/23 07:26 Pulse Ox 95 07/16/23 07:26 FiO2 Intake & Output 07/15/23 07/16/23 07/16/23 18:59 06:59 18:59 Intake Total 1036 Output Total 65 1000 Balance 971 -1000 Weight 93.5 kg Intake: IV 300 Sodium Chloride 0.9% 1, 300 000 ml @ 100 mls/hr IV . Q10H [facility] Rx#:[id number] Oral 736 Output: Urine 65 1000 Other: Voiding Method Indwelling Catheter Toilet Toilet External Catheter External Catheter # Voids 4 - Labs CBC & Chem 7: 07/16/23 02:33 07/16/23 02:33 Labs: Abnormal Lab Results - Last 24 Hours (Table) 07/15/23 07/15/23 07/15/23 Range/Units 05:28 16:46 20:32 RBC (3.80-5.40) m/uL Hgb (11.4-16.0) gm/dL Hct (34.0-46.0) % Plt Count (150-450) k/uL Sodium (137-145) mmol/L Carbon Dioxide (22-30) mmol/L BUN (7-17) mg/dL Creatinine (0.52-1.04) mg/dL Glucose (74-99) mg/dL POC Glucose (mg/dL) 121 H 189 H (70-110) mg/dL Calcium (8.4-10.2) mg/dL Iron 9 L (50-170) UG/DL % Saturation 3.09 L (12.00-45.00) 07/16/23 07/16/23 07/16/23 Range/Units 02:33 02:33 05:47 RBC 2.67 L (3.80-5.40) m/uL Hgb 7.8 L (11.4-16.0) gm/dL Hct 23.5 L (34.0-46.0) % Plt Count 82 L (150-450) k/uL Sodium 132 L (137-145) mmol/L Carbon Dioxide 21 L (22-30) mmol/L BUN 42 H (7-17) mg/dL Creatinine 1.08 H (0.52-1.04) mg/dL Glucose 106 H (74-99) mg/dL POC Glucose (mg/dL) 128 H (70-110) mg/dL Calcium 8.2 L (8.4-10.2) mg/dL Iron (50-170) UG/DL % Saturation (12.00-45.00) 07/16/23 Range/Units 11:18 RBC (3.80-5.40) m/uL Hgb (11.4-16.0) gm/dL Hct (34.0-46.0) % Plt Count (150-450) k/uL Sodium (137-145) mmol/L Carbon Dioxide (22-30) mmol/L BUN (7-17) mg/dL Creatinine (0.52-1.04) mg/dL Glucose (74-99) mg/dL POC Glucose (mg/dL) 147 H (70-110) mg/dL Calcium (8.4-10.2) mg/dL Iron (50-170) UG/DL % Saturation (12.00-45.00) Microbiology - Last 24 Hours (Table) 07/15/23 05:28 Blood Culture - Preliminary Blood 07/12/23 20:30 Blood Culture - Preliminary Blood 07/12/23 22:31 Gram Stain - Final Leg - Right Wound Culture - Final Beta Hemolytic Strep Group G Enterobacter cloacae Staphylococcus aureus 07/14/23 08:22 Blood Culture - Preliminary Blood 07/12/23 20:45 Blood Culture Gram Stain - Final Blood Blood Culture - Final Beta Hemolytic Strep Group G
--- NOTE | 2023-07-16 13:26 | P.PN ---
Subjective Progress Note Date: 07/16/23 This is an 88-year-old female with history of multiple medical problems including chronic right lower extremity nonhealing ulcer, chronic atrial fibrillation, chronic anemia, dementia, dyslipidemia, history of aortic valve stenosis and previous TAVR, type 2 diabetes, essential hypertension, mild obstructive lung disease and restrictive lung disease, brought into the emergency room yesterday mostly with concern of family members about her confusion and low-grade fever. Patient developed chills and mental status change, patient had no symptoms of cough, no shortness of breath, no headache, no neck pain, no nausea, no abdominal pain, no melena, no hematemesis. Patient does have history of chronic right lower extremity ulcer, and has required antibiotics in the past for this ulcer, continues to follow-up usually with the wound care center for her ulcer. In the ER, patient had a relatively normal CT of the brain, chest x-ray was also unremarkable, patient was noted to be hypotensive, and she received fluid boluses, did not require any epinephrine initially, but today after I saw the patient and she was getting fluids at 150 cc/h, patient developed hypotension requiring norepinephrine, and I felt that the patient has sepsis and possibly septic shock. And the patient is receiving antibiotic in the form of vancomycin and Rocephin. Blood cultures are pending. WBC count is 13.8 hemoglobin is 8.4. Basic metabolic profile is normal creatinine went up from 1.32 up to 1.40 in less than 24 hours. Patient had negative drug screen, negative influenza a influenza B RSV and COVID-19 screeni ng. Analysis was noted to be unremarkable. Lactic acid on admission was 1.1 hemoglobin this morning was 8.4, her hemoglobin on admission was 10.5, reminded patient received few liters of fluid since admission Patient was reevaluated today on 07/14/23, patient remains in the ICU, still requiring norepinephrine at 0.05 mcg/kg/min. Blood cultures on this patient came back positive for beta-hemolytic strep group G, her wound cultures came back positive for beta-hemolytic strep and gram-negative bacilli. Her antibiotics were transitioned to Unasyn, clinically the patient is feeling better, she is more awake today, her blood pressure seems to be stabilizing, and she is on a very minimal dose of norepinephrine which would likely be discontinued in the next few hours norepinephrine is being titrated down. WBC count today is 16 hemoglobin 8.1 basic metabolic profile is normal renal profile is improving creatinine is down to 1.30 from 1.40 yesterday. Reevaluated today on 07/15/2023, patient remains in the ICU, patient is doing well, not in any distress, she is actually on room air, she is off norepinephrine, she had good urine output, remains on antibiotics for her bacteremia and septic shock presentation, hemodynamically stable. WBC count is 8.1 hemoglobin 7.5 basic metabolic profile is normal renal profile is improving creatinine down to 1.22, patient remains on Unasyn The patient is seen today July 16, 2023 in follow-up on the regular medical floor. She was transferred out of the ICU yesterday. She remains awake and alert in no acute distress. Maintaining good O2 saturations in the 90s on room air. She is continued on Unasyn and Cipro for right lower extremity cellulitis. Doppler negative for DVT. Wound culture was positive for beta-hemolytic strep group G, Enterobacter [place], methicillin sensitive staphylococcus aureus. White count 7.6. Hemoglobin 7.8. Platelets 82,000. Sodium 132. Potassium 4.0. Bicarb 21. BUN 42. Creatinine 1.08. Glucose 106 Objective - Vital Signs Vital signs: Vital Signs Temp 98.4 F 07/16/23 07:26 Pulse 87 07/16/23 08:30 Resp 16 07/16/23 08:30 BP 112/63 07/16/23 07:26 Pulse Ox 95 07/16/23 07:26 FiO2 Intake & Output 07/15/23 07/16/23 07/16/23 18:59 06:59 18:59 Intake Total 1036 Output Total 65 1000 Balance 971 -1000 Weight 93.5 kg Intake: IV 300 Sodium Chloride 0.9% 1, 300 000 ml @ 100 mls/hr IV . Q10H [facility] Rx#:[id number] Oral 736 Output: Urine 65 1000 Other: Voiding Method Indwelling Catheter Toilet Toilet External Catheter External Catheter # Voids 4 - Exam General: Awake, alert 88-year-old female, resting comfortably in bed, not in respiratory distress. On room air Skin: Skin is warm and dry chronic large nonhealing ulcer noted on the distal aspect of the right lower extremity above the ankle Eye: Pupils are equal, round and reactive to light, extra-ocular movements are intact; there is normal conjunctiva bilaterally. Ears, nose, mouth and throat: There are moist mucous membranes and no oral lesions. Neck: The neck is supple, there is no tenderness or JVD. Cardiovascular: Irregular irregular rhythm, 2/6 systolic murmur throughout the precordium Respiratory: Clear bilaterally no rhonchi no wheezes Gastrointestinal: Soft, non-distended, non-tender abdomen without masses or organomegaly noted. There is no rebound or guarding present. Bowel sounds are unremarkable. Musculoskeletal: Normal ROM, no tenderness Extremities: No clubbing, no cyanosis, patient has a chronic nonhealing ulcer noted in the right lower extremity just above the right ankle. Significant cellulitis of the right lower extremity Neurological: Alert oriented x 3 no gross focal deficit Psychiatric: Normal mood and affect and normal mental status examination. - Labs CBC & Chem 7: 07/16/23 02:07/16/23 02:33 Labs: Abnormal Lab Results - Last 24 Hours (Table) 07/15/23 07/15/23 07/15/23 Range/Units 05:28 16:46 20:32 RBC (3.80-5.40) m/uL Hgb (11.4-16.0) gm/dL Hct (34.0-46.0) % Plt Count (150-450) k/uL Sodium (137-145) mmol/L Carbon Dioxide (22-30) mmol/L BUN (7-17) mg/dL Creatinine (0.52-1.04) mg/dL Glucose (74-99) mg/dL POC Glucose (mg/dL) 121 H 189 H (70-110) mg/dL Calcium (8.4-10.2) mg/dL Iron 9 L (50-170) UG/DL % Saturation 3.09 L (12.00-45.00) 07/16/23 07/16/23 07/16/23 Range/Units 02:33 02:33 05:47 RBC 2.67 L (3.80-5.40) m/uL Hgb 7.8 L (11.4-16.0) gm/dL Hct 23.5 L (34.0-46.0) % Plt Count 82 L (150-450) k/uL Sodium 132 L (137-145) mmol/L Carbon Dioxide 21 L (22-30) mmol/L BUN 42 H (7-17) mg/dL Creatinine 1.08 H (0.52-1.04) mg/dL Glucose 106 H (74-99) mg/dL POC Glucose (mg/dL) 128 H (70-110) mg/dL Calcium 8.2 L (8.4-10.2) mg/dL Iron (50-170) UG/DL % Saturation (12.00-45.00) 07/16/23 Range/Units 11:18 RBC (3.80-5.40) m/uL Hgb (11.4-16.0) gm/dL Hct (34.0-46.0) % Plt Count (150-450) k/uL Sodium (137-145) mmol/L Carbon Dioxide (22-30) mmol/L BUN (7-17) mg/dL Creatinine (0.52-1.04) mg/dL Glucose (74-99) mg/dL POC Glucose (mg/dL) 147 H (70-110) mg/dL Calcium (8.4-10.2) mg/dL Iron (50-170) UG/DL % Saturation (12.00-45.00) Microbiology - Last 24 Hours (Table) 07/15/23 05:28 Blood Culture - Preliminary Blood 07/12/23 20:30 Blood Culture - Preliminary Blood 07/12/23 22:31 Gram Stain - Final Leg - Right Wound Culture - Final Beta Hemolytic Strep Group G Enterobacter cloacae Staphylococcus aureus 07/14/23 08:22 Blood Culture - Preliminary Blood 07/12/23 20:45 Blood Culture Gram Stain - Final Blood Blood Culture - Final Beta Hemolytic Strep Group G Assessment and Plan Assessment: Hypotension, secondary to septic shock and gram-positive bacteremia with right lower extremity cellulitis. Stable and off pressors Chronic infected right lower extremity ulcer is the most likely source of her infection and sepsis Chronic anemia Type 2 diabetes with diabetic nephropathy Acute on chronic kidney injury most likely secondary to sepsis/acute tubular necrosis Toxic metabolic encephalopathy History of underlying dementia History of chronic anemia History of benign positional vertigo History of underlying COPD mild to moderate History of closed fracture of neck of right femur History of aortic stenosis and previous TAVR History of GERD Benign essential hypertension Dyslipidemia Insomnia Chronic fatigue Chronic atrial fibrillation Plan: The patient was seen and evaluated Doppler, labs and medications reviewed No DVT of the right lower extremity Continued with significant cellulitis Continued on Unasyn and Cipro Infectious disease is following Currently stable and on room air We will continue to follow I have personally seen and examined the patient, performed the documentation and the assessment and plan as written. Number of minutes spent on the visit: 10.
--- NOTE | 2023-07-16 14:54 | P.GSCN ---
History of Present Illness Consult date: 07/16/23 Reason for Consult: Thank you right lower extremity chronic woundthank you Requesting physician: Ebony Ornelas History of present illness: This is a pleasant 88-year-old female who has a right lower extremity chronic w ound for approximately 2 years duration. She is seen weekly at the wound care center. He was admitted 3 days ago for acute confusion, and chills. She was admitted for bacteremia. Blood cultures came back with beta-hemolytic strep group G. Right lower extremity wound culture was positive as well. She is currently on IV antibiotics. Right lower extremity is significantly swollen, this is chronic. However she states she has increased redness to that right lower extremity all the way up her thigh which is very tender. Denies any history of blood clots in that leg. She states that she usually wears a compression stocking to the right lower extremity when she is at home. Review of Systems A 14 point review systems was completed all pertinent positives and negatives as stated in the HPI. Past Medical History Past Medical History: Atrial Fibrillation, COPD, Diabetes Mellitus, Hyperlipidemia, Hypertension, Memory Impairment, Osteoarthritis (OA) Additional Past Medical History / Comment(s): possible Hiatal Hernia, left neck mass History of Any Multi-Drug Resistant Organisms: None Reported Past Surgical History: Cardiac Valve Replacement, Cholecystectomy, Orthopedic Surgery Additional Past Surgical History / Comment(s): Right knee surgery X5, Hammer Toe surgery, left knee arthroscopy Past Anesthesia/Blood Transfusion Reactions: Previous Problems w/ Anesthesia Additional Past Anesthesia/Blood Transfusion Reaction / Comm: Woke up during last knee surgery. Smoking Status: Current some day smoker - Past Family History Father Family Medical History: Cancer Additional Family Medical History / Comment(s): Prostate Cancer. Brother(s) Additional Family Medical History / Comment(s): Blood clot from surgery. Medications and Allergies Home Medications Medication Instructions Recorded Confirmed Type Apixaban [Eliquis] 2.5 mg PO BID 10/10/18 07/12/23 History Ascorbic Acid [Vitamin C] 1,000 mg PO DAILY 10/10/18 07/12/23 History Atorvastatin [Lipitor] 40 mg PO Q48H 10/10/18 07/12/23 History Cholecalciferol [Vitamin D3 (25 25 mcg PO DAILY 10/10/18 07/12/23 History Mcg = 1000 Iu)] Latanoprost/Pf [Latanoprost 0.005% 1 drop RIGHT EYE HS 10/10/18 07/12/23 History Eye Drop] Multivitamins, Thera [Multivitamin 1 tab PO DAILY 10/10/18 07/12/23 History (formulary)] metFORMIN HCL [metFORMIN HCL ER] 750 mg PO BID 10/10/18 07/12/23 History Diphenoxylate HCl/Atropine 1 - 2 tab PO QID PRN 01/17/20 07/12/23 History [Lomotil 2.5-0.025 mg Tablet] Ferrous Sulfate [Iron] 325 mg PO Q48H 01/17/20 07/12/23 History Furosemide [Lasix] 20 mg PO DAILY PRN 01/17/20 07/12/23 History Donepezil [Aricept] 10 mg PO DAILY 12/27/20 07/12/23 History Calcium 1000mg 1 tab PO DAILY 01/23/23 07/12/23 History Co Q-10 100mg 1 tab PO DAILY 01/23/23 07/12/23 History Super Beets Heart Chews 2 tab PO W/LUNCH 01/23/23 07/12/23 History Zinc Gluconate [Zinc] 50 mg PO DAILY 01/23/23 07/12/23 History Acetaminophen Tab [Tylenol] 650 mg PO Q6HR PRN tab 01/28/23 07/12/23 Rx Fosinopril/Hydrochlorothiazide 1 tab PO DAILY 07/12/23 07/12/23 History [Monopril HCT 10-12.5 mg Tab] Gabapentin 300 mg PO TID 07/12/23 07/12/23 History Metoprolol Tartrate [Lopressor] 50 mg PO DAILY 07/12/23 07/12/23 History Zolpidem [Ambien] 5 mg PO HS PRN 07/12/23 07/12/23 History traMADol HCL 50 mg PO BID 07/12/23 07/12/23 History Allergies Allergy/AdvReac Type Severity Reaction Status Date / Time Paper Tape Allergy Redness/Itc Uncoded 07/12/23 21:52 erick Surgical - Exam Vital Signs Temp Pulse Resp BP Pulse Ox 102.3 F H 140 H 24 138/94 90 L 07/12/23 20:01 07/12/23 20:01 07/12/23 20:01 07/12/23 20:01 07/12/23 20:01 General appearance: The patient is alert, oriented, appears in no acute distress. HET: Head is normocephalic and atraumatic. Pupils are equal and reactive. Neck: Supple. Heart: Regular. Lungs: Equal expansion, normal respiratory effort. Abdomen: Soft, nontender, nondistended. Extremities: Bilateral lower extremity edema, right greater than left. Right lower extremity venous stasis, chronic wound to the hernandez with good soft tissue, no drainage or foul odor. Erythema right lower extremity marked up to the medial aspect of thigh. Tender to palpation. Neurological: No focal deficits. Alert and oriented. Results - Labs 07/16/23 02:33 07/16/23 02:33 Abnormal Lab Results - Last 24 Hours (Table) 07/15/23 07/15/23 07/15/23 Range/Units 05:28 16:46 20:32 RBC (3.80-5.40) m/uL Hgb (11.4-16.0) gm/dL Hct (34.0-46.0) % Plt Count (150-450) k/uL Sodium (137-145) mmol/L Carbon Dioxide (22-30) mmol/L BUN (7-17) mg/dL Creatinine (0.52-1.04) mg/dL Glucose (74-99) mg/dL POC Glucose (mg/dL) 121 H 189 H (70-110) mg/dL Calcium (8.4-10.2) mg/dL Iron 9 L (50-170) UG/DL % Saturation 3.09 L (12.00-45.00) 07/16/23 07/16/23 07/16/23 Range/Units 02:33 02:33 05:47 RBC 2.67 L (3.80-5.40) m/uL Hgb 7.8 L (11.4-16.0) gm/dL Hct 23.5 L (34.0-46.0) % Plt Count 82 L (150-450) k/uL Sodium 132 L (137-145) mmol/L Carbon Dioxide 21 L (22-30) mmol/L BUN 42 H (7-17) mg/dL Creatinine 1.08 H (0.52-1.04) mg/dL Glucose 106 H (74-99) mg/dL POC Glucose (mg/dL) 128 H (70-110) mg/dL Calcium 8.2 L (8.4-10.2) mg/dL Iron (50-170) UG/DL % Saturation (12.00-45.00) 07/16/23 Range/Units 11:18 RBC (3.80-5.40) m/uL Hgb (11.4-16.0) gm/dL Hct (34.0-46.0) % Plt Count (150-450) k/uL Sodium (137-145) mmol/L Carbon Dioxide (22-30) mmol/L BUN (7-17) mg/dL Creatinine (0.52-1.04) mg/dL Glucose (74-99) mg/dL POC Glucose (mg/dL) 147 H (70-110) mg/dL Calcium (8.4-10.2) mg/dL Iron (50-170) UG/DL % Saturation (12.00-45.00) Microbiology - Last 24 Hours (Table) 07/15/23 05:28 Blood Culture - Preliminary Blood 07/12/23 20:30 Blood Culture - Preliminary Blood 07/12/23 22:31 Gram Stain - Final Leg - Right Wound Culture - Final Beta Hemolytic Strep Group G Enterobacter cloacae Staphylococcus aureus 07/14/23 08:22 Blood Culture - Preliminary Blood 07/12/23 20:45 Blood Culture Gram Stain - Final Blood Blood Culture - Final Beta Hemolytic Strep Group G Diabetes panel 07/16/23 Range/Units 02:33 Sodium 132 L (137-145) mmol/L Potassium 4.0 (3.5-5.1) mmol/L Chloride 106 (98-107) mmol/L Carbon Dioxide 21 L (22-30) mmol/L BUN 42 H (7-17) mg/dL Creatinine 1.08 H (0.52-1.04) mg/dL Glucose 106 H (74-99) mg/dL Calcium 8.2 L (8.4-10.2) mg/dL Calcium panel 07/16/23 Range/Units 02:33 Calcium 8.2 L (8.4-10.2) mg/dL Pituitary panel 07/16/23 Range/Units 02:33 Sodium 132 L (137-145) mmol/L Potassium 4.0 (3.5-5.1) mmol/L Chloride 106 (98-107) mmol/L Carbon Dioxide 21 L (22-30) mmol/L BUN 42 H (7-17) mg/dL Creatinine 1.08 H (0.52-1.04) mg/dL Glucose 106 H (74-99) mg/dL Calcium 8.2 L (8.4-10.2) mg/dL Adrenal panel 07/16/23 Range/Units 02:33 Sodium 132 L (137-145) mmol/L Potassium 4.0 (3.5-5.1) mmol/L Chloride 106 (98-107) mmol/L Carbon Dioxide 21 L (22-30) mmol/L BUN 42 H (7-17) mg/dL Creatinine 1.08 H (0.52-1.04) mg/dL Glucose 106 H (74-99) mg/dL Calcium 8.2 L (8.4-10.2) mg/dL - Imaging Comments: Venous duplex right lower extremity negative for DVT Assessment and Plan Assessment: 1. Right lower extremity nonpressure chronic wound 2. Right lower extremity swelling and cellulitis 3. Right lower extremity venous stasis 4. Bacteremia Plan: Patient was seen and examined. Wound with healthy appearing tissue does not appear infected. Would not recommend surgical excisional debridement. Continue local wound care as ordered. Continue antibiotics per recommendations from infectious disease. Recommendations were discussed with the Dr. Ornelas. Thank you for this consultation, we will sign off at this time. The impression and plan of care has been dictated as directed. I performed a history and examination of this patient, discussed the same with the dictator. I agree with the dictator's note ,documented as a scribe. Any a dditional findings or plans will be noted.
[2023-07-16] MEDS: PIPERACILLIN-TAZOBACTAM 3.375 GM in SODIUM CHLORIDE 0.9% 100 ML IVPB SCH (15:57)
[2023-07-16 16:35] LABS: Glucose,Whole Blood 156 mg/dL (70-110)
[2023-07-16] MEDS: ACETAMINOPHEN TAB 325 MG TAB PO PRN (17:43)
[2023-07-16 19:41] LABS: Glucose,Whole Blood 187 mg/dL (70-110)
[2023-07-17 05:55] LABS: Glucose,Whole Blood 146 mg/dL (70-110)
[2023-07-17 09:53] VITALS: BMI 33.7
[2023-07-17 11:06] LABS: Basophils # (A) 0.03 X 10*3/uL (0.00-0.10); Basophils % (A) 0.5 %; Eosinophils # (A) 0.12 X 10*3/uL (0.04-0.35); Eosinophils % (A) 1.8 %; HCT 24.3 % (37.2-46.3); HGB 7.6 g/dL (12.0-15.0); Lymphocytes # (A) 0.62 X 10*3/uL (0.90-5.00); Lymphocytes % (A) 9.5 %; MCH 28.1 pg (27.0-32.0); MCHC 31.3 g/dL (32.0-37.0); Mean Platelet Volume 11.2 FL (9.5-12.2); Monocytes # (A) 0.66 X 10*3/uL (0.20-1.00); Monocytes % (A) 10.2 %; NRBC Per 100 WBC 0 X 10*3/uL (0.00-0.01); Neutrophils # (A) 5.03 X 10*3/uL (1.80-7.70); Neutrophils % (A) 77.4 %; Platelet Count 94 X 10*3/uL (140-440); RDW 14.4 % (11.5-14.5)
[2023-07-17 11:12] LABS: Glucose,Whole Blood 224 mg/dL (70-110)
[2023-07-17 11:20] LABS: ALT 16 U/L (8-44); AST 17 U/L (13-35); Albumin 3.3 g/dL (3.8-4.9); Albumin/Globulin Ratio 1.38 Ratio (1.60-3.17); Alkaline Phosphatase 240 U/L (41-126); BUN/Creat Ratio 26.83 Ratio (12.00-20.00); Blood Urea Nitrogen 32.2 mg/dL (9.0-27.0); Calcium 8.6 mg/dL (8.7-10.3); Carbon Dioxide 24.7 mmol/L (21.6-31.8); Chloride 102 mmol/L (96-109); Globulin 2.4 g/dL (1.6-3.3); Glucose 104 mg/dL (70-110); Sodium 136 mmol/L (135-145); Total Bilirubin 0.8 mg/dL (0.3-1.2); Total Protein 5.7 g/dL (6.2-8.2)
[2023-07-17 11:55] LABS: Erythrocyte Sedimentation Rate 40 mm/Hr (0-30)
[2023-07-17] MEDS: FERROUS SULFATE 325 MG TAB PO SCH (12:28)
--- NOTE | 2023-07-17 13:31 | P.PN ---
Subjective Progress Note Date: 07/17/23 This is an 88-year-old female with history of multiple medical problems including chronic right lower extremity nonhealing ulcer, chronic atrial fibrillation, chronic anemia, dementia, dyslipidemia, history of aortic valve stenosis and previous TAVR, type 2 diabetes, essential hypertension, mild obstructive lung disease and restrictive lung disease, brought into the emergency room yesterday mostly with concern of family members about her confusion and low-grade fever. Patient developed chills and mental status change, patient had no symptoms of cough, no shortness of breath, no headache, no neck pain, no nausea, no abdominal pain, no melena, no hematemesis. Patient does have history of chronic right lower extremity ulcer, and has required antibiotics in the past for this ulcer, continues to follow-up usually with the wound care center for her ulcer. In the ER, patient had a relatively normal CT of the brain, chest x-ray was also unremarkable, patient was noted to be hypotensive, and she received fluid boluses, did not require any epinephrine initially, but today after I saw the patient and she was getting fluids at 150 cc/h, patient developed hypotension requiring norepinephrine, and I felt that the patient has sepsis and possibly septic shock. And the patient is receiving antibiotic in the form of vancomycin and Rocephin. Blood cultures are pending. WBC count is 13.8 hemoglobin is 8.4. Basic metabolic profile is normal creatinine went up from 1.32 up to 1.40 in less than 24 hours. Patient had negative drug screen, negative influenza a influenza B RSV and COVID-19 screeni ng. Analysis was noted to be unremarkable. Lactic acid on admission was 1.1 hemoglobin this morning was 8.4, her hemoglobin on admission was 10.5, reminded patient received few liters of fluid since admission Patient was reevaluated today on 07/14/23, patient remains in the ICU, still requiring norepinephrine at 0.05 mcg/kg/min. Blood cultures on this patient came back positive for beta-hemolytic strep group G, her wound cultures came back positive for beta-hemolytic strep and gram-negative bacilli. Her antibiotics were transitioned to Unasyn, clinically the patient is feeling better, she is more awake today, her blood pressure seems to be stabilizing, and she is on a very minimal dose of norepinephrine which would likely be discontinued in the next few hours norepinephrine is being titrated down. WBC count today is 16 hemoglobin 8.1 basic metabolic profile is normal renal profile is improving creatinine is down to 1.30 from 1.40 yesterday. Reevaluated today on 07/15/2023, patient remains in the ICU, patient is doing well, not in any distress, she is actually on room air, she is off norepinephrine, she had good urine output, remains on antibiotics for her bacteremia and septic shock presentation, hemodynamically stable. WBC count is 8.1 hemoglobin 7.5 basic metabolic profile is normal renal profile is improving creatinine down to 1.22, patient remains on Unasyn The patient is seen today July 16, 2023 in follow-up on the regular medical floor. She was transferred out of the ICU yesterday. She remains awake and alert in no acute distress. Maintaining good O2 saturations in the 90s on room air. She is continued on Unasyn and Cipro for right lower extremity cellulitis. Doppler negative for DVT. Wound culture was positive for beta-hemolytic strep group G, Enterobacter [place], methicillin sensitive staphylococcus aureus. White count 7.6. Hemoglobin 7.8. Platelets 82,000. Sodium 132. Potassium 4.0. Bicarb 21. BUN 42. Creatinine 1.08. Glucose 106 The patient is seen today July 17, 2023 in follow-up on the regular medical floor. She is currently sitting up in bed. Awake and alert in no acute distress. Family is at the bedside. She denies any worsening shortness of breath, cough or congestion. She is maintaining good O2 saturations in the 90s on room air. She is afebrile. Hemodynamically stable. No plans for surgical debridement of the right lower extremity wound. Cellulitis is unchanged. Bone scan is pending. She remains on antibiotics in the form of Zosyn. Anticoagulated with Eliquis. Follow-up blood cultures revealing no growth. White count 6.5. Hemoglobin 7.6. Platelets 94,000. Sodium 136. Potassium 4.0. Bicarb 25. BUN 32. Creatinine 1.2. C-reactive protein 12.5. Objective - Vital Signs Vital signs: Vital Signs Temp 98.4 F 07/17/23 07:26 Pulse 68 07/17/23 07:26 Resp 18 07/17/23 07:26 BP 101/62 07/17/23 07:26 Pulse Ox 93 L 07/17/23 07:26 FiO2 Intake & Output 07/16/23 07/17/23 07/17/23 18:59 06:59 18:59 Output Total 1200 500 Balance -1200 -500 Weight 92 kg 92 kg Output: Urine 1200 500 Other: Voiding Method Toilet Toilet External Catheter External Catheter # Voids 1 - Exam General: Awake, alert very pleasant 88-year-old female, not in respiratory distress. On room air. Skin: Skin is warm and dry chronic large nonhealing ulcer noted on the distal aspect of the right lower extremity above the ankle. Eye: Pupils are equal, round and reactive to light, extra-ocular movements are intact; there is normal conjunctiva bilaterally. Ears, nose, mouth and throat: There are moist mucous membranes and no oral lesions. Neck: The neck is supple, there is no tenderness or JVD. Cardiovascular: Irregular irregular rhythm, 2/6 systolic murmur throughout the precordium.. Respiratory: Clear bilaterally no rhonchi no wheezes. Gastrointestinal: Soft, non-distended, non-tender abdomen without masses or organomegaly noted. There is no rebound or guarding present. Bowel sounds are unremarkable. Musculoskeletal: Normal ROM, no tenderness. Extremities: No clubbing, no cyanosis, patient has a chronic nonhealing ulcer noted in the right lower extremity just above the right ankle. Significant cellulitis of the right lower extremity Neurological: Alert oriented x 3 no gross focal deficit. Psychiatric: Normal mood and affect and normal mental status examination. - Labs CBC & Chem 7: 07/17/23 06:56 07/17/23 06:56 Labs: Abnormal Lab Results - Last 24 Hours (Table) 07/16/23 07/16/23 07/17/23 Range/Units 16:29 19:40 05:53 RBC (4.10-5.20) X 10*6/uL Hgb (12.0-15.0) g/dL Hct (37.2-46.3) % MCHC (32.0-37.0) g/dL Plt Count (140-440) X 10*3/uL Lymphocytes # (0.90-5.00) X 10*3/uL ESR (0-30) mm/Hr BUN (9.0-27.0) mg/dL Est GFR (CKD-EPI) (>=60) BUN/Creatinine Ratio (12.00-20.00) Ratio POC Glucose (mg/dL) 156 H 187 H 146 H (70-110) mg/dL Calcium (8.7-10.3) mg/dL Alkaline Phosphatase (41-126) U/L C-Reactive Protein (0.00-0.80) mg/dL Total Protein (6.2-8.2) g/dL Albumin (3.8-4.9) g/dL Albumin/Globulin Ratio (1.60-3.17) Ratio 07/17/23 07/17/23 07/17/23 Range/Units 06:56 06:56 11:10 RBC 2.70 L (4.10-5.20) X 10*6/uL Hgb 7.6 L (12.0-15.0) g/dL Hct 24.3 L (37.2-46.3) % MCHC 31.3 L (32.0-37.0) g/dL Plt Count 94 L (140-440) X 10*3/uL Lymphocytes # 0.62 L (0.90-5.00) X 10*3/uL ESR 40 H (0-30) mm/Hr BUN 32.2 H (9.0-27.0) mg/dL Est GFR (CKD-EPI) 44 L (>=60) BUN/Creatinine Ratio 26.83 H (12.00-20.00) Ratio POC Glucose (mg/dL) 224 H (70-110) mg/dL Calcium 8.6 L (8.7-10.3) mg/dL Alkaline Phosphatase 240 H (41-126) U/L C-Reactive Protein 12.50 H (0.00-0.80) mg/dL Total Protein 5.7 L (6.2-8.2) g/dL Albumin 3.3 L (3.8-4.9) g/dL Albumin/Globulin Ratio 1.38 L (1.60-3.17) Ratio Microbiology - Last 24 Hours (Table) 07/15/23 05:28 Blood Culture - Preliminary Blood 07/14/23 08:22 Blood Culture - Preliminary Blood 07/12/23 20:30 Blood Culture - Preliminary Blood 07/12/23 22:31 Gram Stain - Final Leg - Right Wound Culture - Final Beta Hemolytic Strep Group G Enterobacter cloacae Staphylococcus aureus Assessment and Plan Assessment: Hypotension, secondary to septic shock and beta-hemolytic strep group G bacteremia with right lower extremity cellulitis. Recovered and off pressors Chronic infected right lower extremity ulcer is the most likely source of her infection and sepsis. Cultures positive for beta-hemolytic strep group G, Enterobacter cloacae, methicillin sensitive Staphylococcus aureus Chronic anemia Type 2 diabetes with diabetic nephropathy Acute on chronic kidney injury most likely secondary to sepsis/acute tubular necrosis Toxic metabolic encephalopathy History of underlying dementia History of chronic anemia History of benign positional vertigo History of underlying COPD mild to moderate History of closed fracture of neck of right femur History of aortic stenosis and previous TAVR History of GERD Benign essential hypertension Dyslipidemia Insomnia Chronic fatigue Chronic atrial fibrillation Plan: The patient was seen and evaluated Labs and medications reviewed Continued with significant cellulitis Bone scan pending Antibiotics changed to Zosyn Infectious disease is following Currently stable and on room air I have personally seen and examined the patient, performed the documentation and the assessment and plan as written. Number of minutes spent on the visit: 10.
--- NOTE | 2023-07-17 14:03 | P.PN ---
Subjective Progress Note Date: 07/17/23 Patient is a 88-year-old female with diabetes mellitus type 2 with peripheral neuropathy, A-fib on Eliquis, COPD, hypertension, dyslipidemia, and chronic right lower extremity nonhealing ulcer who presented to the emergency department due to confusion and fever. On arrival to the ER here vital signs were remarkable for temperature of 102.3 and a pulse of 140. Laboratory analysis was remarkable for white blood cell count 13.7, hemoglobin 10.5, platelets 127, creatinine 1.32. Cepheid 4 Plex was negative. Drug screen was negative. Chest x-ray demonstrated no acute process CT head demonstrated moderate atrophy with microvascular ischemic changes. It was felt that her sepsis was likely secondary to her right lower extremity ulcer. She was started on ceftriaxone and vancomycin. Infectious disease was consulted and she was started on normal saline. She became hypotensive overnight and received 1 additional unit of fluid. She again became hypotensive on the morning of 07/13 necessitating nor epinephrine. Her blood cultures came back positive for group B strep bacteremia. She was able to be weaned off pressors on 07/14. She continued to improve. However, now having worsening cellulitis, and having fevers again. Antibiotics broadened. ID following. Also consulted vascular surgery. Not recommending any further debridement. Bone scan pending. Patient seen and examined at bedside. Was febrile yesterday night. Denies any other significant complaints Vital signs reviewed General: Nontoxic, no distress, appears at stated age Cardiovascular: S1S2 reg, no murmur Lungs: Decreased breath sounds bilateral, no rhonchi, no rales, no accessory muscle use Abdominal: Soft, nontender to palpation, no guarding Ext: No gross muscle atrophy, no edema b/l lower extremities, no contractures,3+ right lower extremity edema, Neuro: CN II-XI grossly intact, no focal neuro deficits Psych: Alert, oriented, appropriate affect Derm: Large 6 cm area of ulceration on right anterior hernandez with exposure of muscle and fat, no purulent drainage noted, not malodorous, worsening erythema and warmth Assessment/Plan: Polymicrobial Infected right lower extremity ulcer, now with cellulitis Septic shock, resolved Toxic metabolic encephalopathy, resolved Group B strep bacteremia -Hold all home blood pressure medications -ID following, started on IV Zosyn, bone scan still pending -Vascular surgery does not recommend further debridement, signed off -Wound care recommendations: Santyl, moist gauze, then dry gauze and roll with gauze. Return to wound care center July 23 at 12:45 PM Acute kidney injury on chronic kidney disease stage III, resolved -Hold fosinopril hydrochlorothiazide and Lasix Anemia and thrombocytopenia, chronic and near baseline Iron deficiency anemia - no indication for transfusion -Started on oral iron, and ascorbic acid - follow CBC Diabetes mellitus type 2 -Hold metformin -Sliding scale insulin -A1c 5.4 -Follow blood sugars Imaging: None new Data Review: WBC 6.5, hemoglobin 7.6, platelet 94, creatinine 1.2, sodium 136, blood sugars range between 1 46-2 24 DVT prophylaxis: Eliquis Anticipated discharge date: Pending Clinical Course Anticipated discharge place: Pending Clinical Course Objective - Vital Signs Vital signs: Vital Signs Temp 98.4 F 07/17/23 07:26 Pulse 68 07/17/23 07:26 Resp 18 07/17/23 07:26 BP 101/62 07/17/23 07:26 Pulse Ox 93 L 07/17/23 07:26 FiO2 Intake & Output 07/16/23 07/17/23 07/17/23 18:59 06:59 18:59 Output Total 1200 500 Balance -1200 -500 Weight 92 kg 92 kg Output: Urine 1200 500 Other: Voiding Method Toilet Toilet External Catheter External Catheter # Voids 1 - Labs CBC & Chem 7: 07/17/23 06:56 07/17/23 06:56 Labs: Abnormal Lab Results - Last 24 Hours (Table) 07/16/23 07/16/23 07/17/23 Range/Units 16:29 19:40 05:53 RBC (4.10-5.20) X 10*6/uL Hgb (12.0-15.0) g/dL Hct (37.2-46.3) % MCHC (32.0-37.0) g/dL Plt Count (140-440) X 10*3/uL Lymphocytes # (0.90-5.00) X 10*3/uL ESR (0-30) mm/Hr BUN (9.0-27.0) mg/dL Est GFR (CKD-EPI) (>=60) BUN/Creatinine Ratio (12.00-20.00) Ratio POC Glucose (mg/dL) 156 H 187 H 146 H (70-110) mg/dL Calcium (8.7-10.3) mg/dL Alkaline Phosphatase (41-126) U/L C-Reactive Protein (0.00-0.80) mg/dL Total Protein (6.2-8.2) g/dL Albumin (3.8-4.9) g/dL Albumin/Globulin Ratio (1.60-3.17) Ratio 07/17/23 07/17/23 07/17/23 Range/Units 06:56 06:56 11:10 RBC 2.70 L (4.10-5.20) X 10*6/uL Hgb 7.6 L (12.0-15.0) g/dL Hct 24.3 L (37.2-46.3) % MCHC 31.3 L (32.0-37.0) g/dL Plt Count 94 L (140-440) X 10*3/uL Lymphocytes # 0.62 L (0.90-5.00) X 10*3/uL ESR 40 H (0-30) mm/Hr BUN 32.2 H (9.0-27.0) mg/dL Est GFR (CKD-EPI) 44 L (>=60) BUN/Creatinine Ratio 26.83 H (12.00-20.00) Ratio POC Glucose (mg/dL) 224 H (70-110) mg/dL Calcium 8.6 L (8.7-10.3) mg/dL Alkaline Phosphatase 240 H (41-126) U/L C-Reactive Protein 12.50 H (0.00-0.80) mg/dL Total Protein 5.7 L (6.2-8.2) g/dL Albumin 3.3 L (3.8-4.9) g/dL Albumin/Globulin Ratio 1.38 L (1.60-3.17) Ratio Microbiology - Last 24 Hours (Table) 07/15/23 05:28 Blood Culture - Preliminary Blood 07/14/23 08:22 Blood Culture - Preliminary Blood 07/12/23 20:30 Blood Culture - Preliminary Blood 07/12/23 22:31 Gram Stain - Final Leg - Right Wound Culture - Final Beta Hemolytic Strep Group G Enterobacter cloacae Staphylococcus aureus
--- NOTE | 2023-07-17 14:30 | NM ---
EXAMINATION TYPE: NM bone 3 phase DATE OF EXAM: 07/17/2023 COMPARISON: NONE CLINICAL INDICATION: Female, 88 years old with history of Right leg chronic wound; Triple phase bone scintigraphy was performed following the injection of 20.3 mCi Tc 99m MDP. Immedia te images and 5.5 hours post injection images acquired. FINDINGS: Degenerative uptake on delayed imaging within the left midfoot and left patella and medial knee. Mild increased radiotracer uptake on soft tissues within the right leg on blood pool minimally persists o n delayed imaging. There is no significant abnormal accumulation of radiotracer to suggest metastatic disease to the bone or other significant abnormality. IMPRESSION: 1. No scintigraphic evidence of osteomyelitis. 2. Cellulitis changes of the right lower leg. 3. Degenerative uptake within the left knee and left mid foot.
--- NOTE | 2023-07-17 15:02 | P.PN ---
Subjective Progress Note Date: 07/17/23 Principal diagnosis: Reason for follow-up is sepsis right leg wound and cellulitis Patient is a 88-year-old female with a past medical history significant for diabetes mellitus hypertension hyperlipidemia COPD atrial fibrillation patient also have a chronic nonhealing wound to the right lower extremity and presented to the hospital with fever confusion patient was noted to be septic possibly to the right lower extremity wound infection and cellulitis. On today's evaluation that is 07/17/2023, the patient did have another fever of 101.6 last evening the patient is afebrile since then, the patient is on room air and breathing comfortably, the Pt denies having any chest pain or cough, the patient denies having any abdominal pain no vomiting or any diarrhea has been reported by the nursing staff, the patient denies any worsening pain to the right lower extremity and right lower extremity redness slightly decreased. Patient white count 6.50 creatinine is 1.2, bone scan progress Objective - Vital Signs Vital signs: Vital Signs Temp 98.4 F 07/17/23 07:26 Pulse 68 07/17/23 07:26 Resp 18 07/17/23 07:26 BP 101/62 07/17/23 07:26 Pulse Ox 93 L 07/17/23 07:26 FiO2 Intake & Output 07/16/23 07/17/23 07/17/23 18:59 06:59 18:59 Output Total 1200 500 Balance -1200 -500 Weight 92 kg 92 kg Output: Urine 1200 500 Other: Voiding Method Toilet Toilet External Catheter External Catheter # Voids 1 - Exam GENERAL DESCRIPTION: An elderly female lying in bed in no distress RESPIRATORY SYSTEM: Unlabored breathing , decreased breath sounds at bases HEART: S1 S2 regular rate and rhythm , ABDOMEN: Soft , no tenderness EXTREMITIES: Right leg wound is currently dressed right lower extremity redness slightly decreased - Labs CBC & Chem 7: 07/17/23 06:56 07/17/23 06:56 Labs: Abnormal Lab Results - Last 24 Hours (Table) 07/16/23 07/16/23 07/16/23 Range/Units 11:18 16:29 19:40 POC Glucose (mg/dL) 147 H 156 H 187 H (70-110) mg/dL 07/17/23 Range/Units 05:53 POC Glucose (mg/dL) 146 H (70-110) mg/dL Microbiology - Last 24 Hours (Table) 07/14/23 08:22 Blood Culture - Preliminary Blood 07/15/23 05:28 Blood Culture - Preliminary Blood 07/12/23 20:30 Blood Culture - Preliminary Blood 07/12/23 22:31 Gram Stain - Final Leg - Right Wound Culture - Final Beta Hemolytic Strep Group G Enterobacter cloacae Staphylococcus aureus Assessment and Plan (1) Cellulitis of right leg Current Visit: Yes Status: Acute Code(s): L03.115 - CELLULITIS OF RIGHT LOWER LIMB SNOMED Code(s): 26353188247034994 (2) Leukocytosis Current Visit: Yes Status: Acute Code(s): D72.829 - ELEVATED WHITE BLOOD CELL COUNT, UNSPECIFIED SNOMED Code(s): 805427065 (3) Bacteremia Current Visit: Yes Status: Acute Code(s): R78.81 - BACTEREMIA SNOMED Code(s): 5236333 (4) Chronic wound of extremity Current Visit: Yes Status: Acute Code(s): LCE5832 - SNOMED Code(s): 47762950900564 Plan: 1patient presented to the hospital with sepsis in this patient who did have a fever tachycardia elevated white count source likely right lower extremity wound with secondary cellulitis as currently no other obvious focus of infection patient did not have respiratory symptoms lungs are clear to auscultation chest x-ray was negative abdominal soft urine is negative, we will likely need to cover for the gram-positive skin rodney to be the likely pathogen 2patient did have group G strep bacteremia source likely right lower extremity wound and cellulitis 3blood cultures has been repeated augment clearance of bacteremia 4local culture growing group B strep as well as Enterobacter that is resistant to Unasyn and MSSA 5patient did have worsening of her cellulitis to the right lower extremity and also spiked a fever, patient antibiotic has been adjusted to Zosyn vascular surgery was consulted for debridement and deep culture however they have evaluated patient and are recommending surgical debridement bone scan is currently in progress family at the bedside multiple questions were answered continue Zosyn Dictation was produced using [employer] dictation software. please excuse any grammatical, word or spelling errors. Time with Patient: Less than 30
[2023-07-17 16:24] LABS: Glucose,Whole Blood 210 mg/dL (70-110)
[2023-07-17 20:55] LABS: Glucose,Whole Blood 165 mg/dL (70-110)
[2023-07-18 06:02] LABS: Glucose,Whole Blood 108 mg/dL (70-110)
[2023-07-18 06:54] LABS: Basophils % (A) 0 %; Eosinophils # (A) 0.2 k/uL (0-0.7); Eosinophils % (A) 2 %; HGB 7.6 gm/dL (11.4-16.0); Lymphocytes # (A) 0.8 k/uL (1.0-4.8); Lymphocytes % (A) 12 %; MCH 29.2 pg (25.0-35.0); MCHC 32.9 g/dL (31.0-37.0); MCV 88.8 fL (80.0-100.0); Mean Platelet Volume 9.2; Monocytes # (A) 0.5 k/uL (0-1.0); Monocytes % (A) 8 %; Neutrophils # (A) 5.1 k/uL (1.3-7.7); Neutrophils % (A) 76 %; RBC 2.59 m/uL (3.80-5.40); RDW 14.2 % (11.5-15.5); WBC 6.7 k/uL (3.8-10.6)
[2023-07-18 06:59] LABS: Platelet Count 94 k/uL (150-450)
[2023-07-18 07:54] LABS: African American GFR (CKD) 47 (>60 ml/min/1.73 sqM); Anion Gap 5 mmol/L; Blood Urea Nitrogen 32 mg/dL (7-17); Calcium 8.1 mg/dL (8.4-10.2); Carbon Dioxide 23 mmol/L (22-30); Chloride 106 mmol/L (98-107); Glucose 95 mg/dL (74-99); Non-African American GFR(CKD) 41 (>60 ml/min/1.73 sqM); Potassium 3.8 mmol/L (3.5-5.1); Sodium 134 mmol/L (137-145)
[2023-07-18 11:34] LABS: Glucose,Whole Blood 142 mg/dL (70-110)
--- NOTE | 2023-07-18 11:54 | P.PN ---
Subjective Progress Note Date: 07/18/23 Hospital course: Patient is a 88-year-old female with diabetes mellitus type 2 with peripheral neuropathy, chronic A-fib on Eliquis, COPD, hypertension, dyslipidemia, and chronic right lower extremity nonhealing ulcer who presented to the emergency department due to confusion and fever. On arrival to the ER here vital signs were remarkable for temperature of 102.3 and a pulse of 140. Laboratory analysis was remarkable for white blood cell count 13.7, hemoglobin 10.5, platelets 127, creatinine 1.32. Cepheid 4 Plex was negative. Drug screen was negative. Chest x-ray demonstrated no acute process CT head demonstrated moderate atrophy with microvascular ischemic changes. It was felt that her sepsis was likely secondary to her right lower extremity ulcer. She was started on ceftriaxone and vancomycin. Infectious disease was consulted and she was st arted on normal saline. She became hypotensive overnight and received 1 additional unit of fluid. She again became hypotensive on the morning of 07/13 necessitating norepinephrine. Her blood cultures came back positive for group B strep bacteremia. She was able to be weaned off pressors on 07/14. She continued to improve. However, now having worsening cellulitis, and having fevers again. Antibiotics broadened. ID following. Also consulted vascular surgery. Not recommending any further debridement. Bone scan pending. Physical exam: Patient seen and fully evaluated at the bedside. Patient and patient's son at bedside updated on bone scan results. Patient reports overall just feeling weak and tired otherwise denies having any complaints at this time. She reports pain in her right foot is currently controlled with current pain medication regimen, states it does not take the pain away but is providing relief. Vital signs reviewed and stable. General: Nontoxic, no distress and appears stated age. Derm: Skin warm and dry, normal coloration for ethnicity. Head: Atraumatic, normocephalic and symmetric. Eyes: EOMs intact, no lid lag, and anicteric sclera Mouth: no lip lesions, mucus membranes moist Cardiovascular: regular rate and rhythm with normal S1S2, systolic murmur, positive posterior tibial pulses bilaterally, and cap refill < 2 seconds. Lungs: Respirations even, regular, and unlabored on room air. Lungs CTA bilaterally, no rhonchi, no rales, no wheezing, and no accessory muscle usage. Abdominal: soft, nontender to palpation, no guarding, no appreciable organomegaly Ext: ROM intact. No gross muscle atrophy, 1-2+ pitting lower extremity edema, no contractures, venous stasis dermatitis to bilateral lower extremities. Kerlix dressing in place right lower extremity is clean, dry, and intact. Neuro: Speech clear, face symmetrical and CN II-XII grossly intact with no noted focal neuro deficits Psych: Alert and oriented to person, place, time, and situation. Appropriate and pleasant affect. Assessment and Plan of Care: Polymicrobial Infected right lower extremity ulcer, now with surrounding cellulitis Bacteremia, group B strep Enlarged lymph nodes right groin, likely secondary to right lower extremity cellulitis resulting from infected ulcer Septic shock, secondary to above. Resolved Toxic metabolic encephalopathy, secondary to above. Resolved -Wound culture results positive for beta-hemolytic strep group G, Enterobacter cloacae, and Staphylococcus aureus. -Blood cultures positive for beta-hemolytic strep group G -Right lower extremity Doppler was negative for DVT but did reveal multiple enlarged lymph nodes within the right groin and generalized subcutaneous soft tissue swelling. -Nuclear medicine bone scan completed and report reviewed showing no skin to graphic evidence for osteomyelitis showing cellulitis changes of right lower extremity. -Blood pressures remain soft, continue to hold all home blood pressure medications at this time -Continue IV antibiotics with Zosyn 3.375 g every 8 hours -Infectious disease following, reviewed documentation in chart -Vascular surgery evaluated, clearing patient from their perspective stating right lower extremity ulcer does not require additional debridement at this time. -Wound care recommendations: Santyl, moist gauze, then dry gauze and roll with gauze. Return to wound care center July 23 at 12:45 PM Acute kidney injury on chronic kidney disease stage III, resolved -Continue to hold fosinopril/hydrochlorothiazide and Lasix Bicytopenia with anemia and thrombocytopenia. Chronic and stable at baseline. Iron deficiency anemia -Bicytopenia stable and at baseline with hemoglobin of 7.6 and platelet count of 94. No need for transfusion or further interventions at this time. -Continue ferrous sulfate 325 mg daily along with ascorbic acid 1000 mg daily. -Continue to monitor with repeat morning CBC, will transfuse as needed for hemoglobin less than 7 and/or platelet count less than 25. [id number] diabetes mellitus type 2 -Blood glucose levels stable ranging from 108-224 over the past 24 hours. -Continue to hold metformin -Continue glycemic protocol with NovoLog sliding scale to maintain tight glycemic control throughout hospitalization. -Hemoglobin A1c 5.4% Imaging reviewed: -Nuclear medicine bone scan completed and report reviewed showing no skin to [facility] evidence for osteomyelitis showing cellulitis changes of right lower extremity. Data Reviewed: -Morning labs completed and reviewed. CBC showing stable bicytopenia with hemoglobin of 7.6 and platelet count of 94. BMP revealing mild hyponatremia with sodium of 134 and stable but persistently elevated renal function with BUN of 32, creatinine 1.20. -Vital signs reviewed and stable. Blood pressure 103/56, heart rate 97, respiratory rate 20, temp 98.7 F, and SpO2 of 96% on room air. CODE STATUS: DNR/DNI DVT prophylaxis: Eliquis Anticipated discharge date: Pending Clinical Course Anticipated discharge place: Pending Clinical Course Patient was seen independently by Nurse Pracitioner. This document was prepared using [email or web address] dictation software. Please allow for errors in orthopedic cast specialist, while rare they do occur. This patient was seen independently by Vladimir MANAGER CAR. I agree with the assessment and plan done by my colleague. Objective - Vital Signs Vital signs: Vital Signs Temp 98.7 F 07/18/23 07:23 Pulse 97 07/18/23 07:23 Resp 20 07/18/23 07:23 BP 103/56 07/18/23 07:23 Pulse Ox 96 07/18/23 07:23 FiO2 Intake & Output 07/17/23 07/18/23 07/18/23 18:59 06:59 18:59 Intake Total 1100 Output Total 400 Balance 700 Weight 92 kg 92.5 kg Intake: Intake, IV Titration 100 Amount Piperacillin-Tazobactam 3 100 .375 gm In Sodium Chloride 0.9% 100 ml @ 25 mls/hr IVPB Q8HR [facility] Rx# :[id number] Oral 1000 Output: Urine 400 Other: Voiding Method Toilet External Catheter # Voids 5 1 - Labs CBC & Chem 7: 07/19/23 06:12 07/19/23 06:12 Labs: Abnormal Lab Results - Last 24 Hours (Table) 07/17/23 07/17/23 07/17/23 Range/Units 06:56 06:56 11:10 RBC 2.70 L (4.10-5.20) X 10*6/uL Hgb 7.6 L (12.0-15.0) g/dL Hct 24.3 L (37.2-46.3) % MCHC 31.3 L (32.0-37.0) g/dL Plt Count 94 L (140-440) X 10*3/uL Lymphocytes # 0.62 L (0.90-5.00) X 10*3/uL ESR 40 H (0-30) mm/Hr Sodium (137-145) mmol/L BUN 32.2 H (9.0-27.0) mg/dL Creatinine (0.52-1.04) mg/dL Est GFR (CKD-EPI) 44 L (>=60) BUN/Creatinine Ratio 26.83 H (12.00-20.00) Ratio POC Glucose (mg/dL) 224 H (70-110) mg/dL Calcium 8.6 L (8.7-10.3) mg/dL Alkaline Phosphatase 240 H (41-126) U/L C-Reactive Protein 12.50 H (0.00-0.80) mg/dL Total Protein 5.7 L (6.2-8.2) g/dL Albumin 3.3 L (3.8-4.9) g/dL Albumin/Globulin Ratio 1.38 L (1.60-3.17) Ratio 07/17/23 07/17/23 07/18/23 Range/Units 16:23 20:51 06:01 RBC 2.59 L (4.10-5.20) X 10*6/uL Hgb 7.6 L (12.0-15.0) g/dL Hct 23.0 L (37.2-46.3) % MCHC (32.0-37.0) g/dL Plt Count 94 L (140-440) X 10*3/uL Lymphocytes # 0.8 L (0.90-5.00) X 10*3/uL ESR (0-30) mm/Hr Sodium (137-145) mmol/L BUN (9.0-27.0) mg/dL Creatinine (0.52-1.04) mg/dL Est GFR (CKD-EPI) (>=60) BUN/Creatinine Ratio (12.00-20.00) Ratio POC Glucose (mg/dL) 210 H 165 H (70-110) mg/dL Calcium (8.7-10.3) mg/dL Alkaline Phosphatase (41-126) U/L C-Reactive Protein (0.00-0.80) mg/dL Total Protein (6.2-8.2) g/dL Albumin (3.8-4.9) g/dL Albumin/Globulin Ratio (1.60-3.17) Ratio 07/18/23 Range/Units 06:01 RBC (4.10-5.20) X 10*6/uL Hgb (12.0-15.0) g/dL Hct (37.2-46.3) % MCHC (32.0-37.0) g/dL Plt Count (140-440) X 10*3/uL Lymphocytes # (0.90-5.00) X 10*3/uL ESR (0-30) mm/Hr Sodium 134 L (137-145) mmol/L BUN 32 H (9.0-27.0) mg/dL Creatinine 1.20 H (0.52-1.04) mg/dL Est GFR (CKD-EPI) (>=60) BUN/Creatinine Ratio (12.00-20.00) Ratio POC Glucose (mg/dL) (70-110) mg/dL Calcium 8.1 L (8.7-10.3) mg/dL Alkaline Phosphatase (41-126) U/L C-Reactive Protein (0.00-0.80) mg/dL Total Protein (6.2-8.2) g/dL Albumin (3.8-4.9) g/dL Albumin/Globulin Ratio (1.60-3.17) Ratio Microbiology - Last 24 Hours (Table) 07/14/23 08:22 Blood Culture - Preliminary Blood 07/15/23 05:28 Blood Culture - Preliminary Blood
--- NOTE | 2023-07-18 12:05 | P.PN ---
Subjective Progress Note Date: 07/18/23 This is an 88-year-old female with history of multiple medical problems including chronic right lower extremity nonhealing ulcer, chronic atrial fibrillation, chronic anemia, dementia, dyslipidemia, history of aortic valve stenosis and previous TAVR, type 2 diabetes, essential hypertension, mild obstructive lung disease and restrictive lung disease, brought into the emergency room yesterday mostly with concern of family members about her confusion and low-grade fever. Patient developed chills and mental status change, patient had no symptoms of cough, no shortness of breath, no headache, no neck pain, no nausea, no abdominal pain, no melena, no hematemesis. Patient does have history of chronic right lower extremity ulcer, and has required antibiotics in the past for this ulcer, continues to follow-up usually with the wound care center for her ulcer. In the ER, patient had a relatively normal CT of the brain, chest x-ray was also unremarkable, patient was noted to be hypotensive, and she received fluid boluses, did not require any epinephrine initially, but today after I saw the patient and she was getting fluids at 150 cc/h, patient developed hypotension requiring norepinephrine, and I felt that the patient has sepsis and possibly septic shock. And the patient is receiving antibiotic in the form of vancomycin and Rocephin. Blood cultures are pending. WBC count is 13.8 hemoglobin is 8.4. Basic metabolic profile is normal creatinine went up from 1.32 up to 1.40 in less than 24 hours. Patient had negative drug screen, negative influenza a influenza B RSV and COVID-19 screeni ng. Analysis was noted to be unremarkable. Lactic acid on admission was 1.1 hemoglobin this morning was 8.4, her hemoglobin on admission was 10.5, reminded patient received few liters of fluid since admission Patient was reevaluated today on 07/14/23, patient remains in the ICU, still requiring norepinephrine at 0.05 mcg/kg/min. Blood cultures on this patient came back positive for beta-hemolytic strep group G, her wound cultures came back positive for beta-hemolytic strep and gram-negative bacilli. Her antibiotics were transitioned to Unasyn, clinically the patient is feeling better, she is more awake today, her blood pressure seems to be stabilizing, and she is on a very minimal dose of norepinephrine which would likely be discontinued in the next few hours norepinephrine is being titrated down. WBC count today is 16 hemoglobin 8.1 basic metabolic profile is normal renal profile is improving creatinine is down to 1.30 from 1.40 yesterday. Reevaluated today on 07/15/2023, patient remains in the ICU, patient is doing well, not in any distress, she is actually on room air, she is off norepinephrine, she had good urine output, remains on antibiotics for her bacteremia and septic shock presentation, hemodynamically stable. WBC count is 8.1 hemoglobin 7.5 basic metabolic profile is normal renal profile is improving creatinine down to 1.22, patient remains on Unasyn The patient is seen today July 16, 2023 in follow-up on the regular medical floor. She was transferred out of the ICU yesterday. She remains awake and alert in no acute distress. Maintaining good O2 saturations in the 90s on room air. She is continued on Unasyn and Cipro for right lower extremity cellulitis. Doppler negative for DVT. Wound culture was positive for beta-hemolytic strep group G, Enterobacter Spring, methicillin sensitive staphylococcus aureus. White count 7.6. Hemoglobin 7.8. Platelets 82,000. Sodium 132. Potassium 4.0. Bicarb 21. BUN 42. Creatinine 1.08. Glucose 106 The patient is seen today July 17, 2023 in follow-up on the regular medical floor. She is currently sitting up in bed. Awake and alert in no acute distress. Family is at the bedside. She denies any worsening shortness of breath, cough or congestion. She is maintaining good O2 saturations in the 90s on room air. She is afebrile. Hemodynamically stable. No plans for surgical debridement of the right lower extremity wound. Cellulitis is unchanged. Bone scan is pending. She remains on antibiotics in the form of Zosyn. Anticoagulated with Eliquis. Follow-up blood cultures revealing no growth. White count 6.5. Hemoglobin 7.6. Platelets 94,000. Sodium 136. Potassium 4.0. Bicarb 25. BUN 32. Creatinine 1.2. C-reactive protein 12.5. The patient is seen today July 18, 2023 and follow-up on the regular medical floor. She awake and alert in no acute distress. Resting comfortably in bed. Denies any worsening shortness of breath, cough or congestion. Maintaining good O2 saturations in the 90s on room air. She has been afebrile. Hemodynamically stable. Bone scan revealed no evidence of osteomyelitis of the right lower extremity. There is noted cellulitis. There is degenerative uptake in the left knee and left midfoot. Follow-up blood cultures revealed no growth. White count 6.7. Hemoglobin 7.6. Platelets 94,000. Sodium 134. Potassium 3.8. Bicarb 23. BUN 32. Creatinine 1.20. Glucose 108. She remains on antibiotics in the form of Zosyn. Objective - Vital Signs Vital signs: Vital Signs Temp 98.7 F 07/18/23 07:23 Pulse 97 07/18/23 07:23 Resp 20 07/18/23 07:23 BP 103/56 07/18/23 07:23 Pulse Ox 96 07/18/23 07:23 FiO2 Intake & Output 07/17/23 07/18/23 07/18/23 18:59 06:59 18:59 Intake Total 1100 Output Total 400 Balance 700 Weight 92 kg 92.5 kg Intake: Intake, IV Titration 100 Amount Piperacillin-Tazobactam 3 100 .375 gm In Sodium Chloride 0.9% 100 ml @ 25 mls/hr IVPB Q8HR [facility] Rx# :[id number] Oral 1000 Output: Urine 400 Other: Voiding Method Toilet External Catheter External Catheter # Voids 5 1 - Exam General: Awake, alert pleasant 88-year-old female, in no acute distress. On room air. Skin: Skin is warm and dry chronic large nonhealing ulcer noted on the distal aspect of the right lower extremity above the ankle. Eye: Pupils are equal, round and reactive to light, extra-ocular movements are intact; there is normal conjunctiva bilaterally. Ears, nose, mouth and throat: There are moist mucous membranes and no oral lesions. Neck: The neck is supple, there is no tenderness or JVD. Cardiovascular: Irregular irregular rhythm, 2/6 systolic murmur throughout the precordium.. Respiratory: Clear bilaterally no rhonchi no wheezes. Gastrointestinal: Soft, non-distended, non-tender abdomen without masses or organomegaly noted. There is no rebound or guarding present. Bowel sounds are unremarkable. Musculoskeletal: Normal ROM, no tenderness. Extremities: No clubbing, no cyanosis, patient has a chronic nonhealing ulcer noted in the right lower extremity just above the right ankle. Significant cellulitis of the right lower extremity Neurological: Alert oriented x 3 no gross focal deficit. Psychiatric: Normal mood and affect and normal mental status examination. - Labs CBC & Chem 7: 07/18/23 06:01 07/18/23 06:01 Labs: Abnormal Lab Results - Last 24 Hours (Table) 07/17/23 07/17/23 07/18/23 Range/Units 16:23 20:51 06:01 RBC 2.59 L (3.80-5.40) m/uL Hgb 7.6 L (11.4-16.0) gm/dL Hct 23.0 L (34.0-46.0) % Plt Count 94 L (150-450) k/uL Lymphocytes # 0.8 L (1.0-4.8) k/uL Sodium (137-145) mmol/L BUN (7-17) mg/dL Creatinine (0.52-1.04) mg/dL POC Glucose (mg/dL) 210 H 165 H (70-110) mg/dL Calcium (8.4-10.2) mg/dL 07/18/23 07/18/23 Range/Units 06:01 11:32 RBC (3.80-5.40) m/uL Hgb (11.4-16.0) gm/dL Hct (34.0-46.0) % Plt Count (150-450) k/uL Lymphocytes # (1.0-4.8) k/uL Sodium 134 L (137-145) mmol/L BUN 32 H (7-17) mg/dL Creatinine 1.20 H (0.52-1.04) mg/dL POC Glucose (mg/dL) 142 H (70-110) mg/dL Calcium 8.1 L (8.4-10.2) mg/dL Microbiology - Last 24 Hours (Table) 07/14/23 08:22 Blood Culture - Preliminary Blood 07/15/23 05:28 Blood Culture - Preliminary Blood Assessment and Plan Assessment: Hypotension, secondary to septic shock and beta-hemolytic strep group G bacteremia with right lower extremity cellulitis. Recovered and off pressors Chronic infected right lower extremity ulcer is the most likely source of her infection and sepsis. Cultures positive for beta-hemolytic strep group G, Enterobacter cloacae, methicillin sensitive Staphylococcus aureus. Bone scan revealed no evidence of osteomyelitis Chronic anemia Type 2 diabetes with diabetic nephropathy Acute on chronic kidney injury most likely secondary to sepsis/acute tubular necrosis Toxic metabolic encephalopathy History of underlying dementia History of chronic anemia History of benign positional vertigo History of underlying COPD mild to moderate History of closed fracture of neck of right femur History of aortic stenosis and previous TAVR History of GERD Benign essential hypertension Dyslipidemia Insomnia Chronic fatigue Chronic atrial fibrillation Plan: The patient was seen and evaluated Bone scan, labs and medications reviewed No evidence of osteomyelitis Continued on Zosyn for cellulitis Infectious disease is following Currently stable and on room air This patient was seen independently by the pulmonary nurse practitioner addressing pulmonary issues I have personally seen and examined the patient, performed the documentation and the assessment and plan as written. Number of minutes spent on the visit: 24.
--- NOTE | 2023-07-18 12:08 | P.PN ---
Subjective Progress Note Date: 07/18/23 Principal diagnosis: Reason for follow-up is sepsis right leg wound and cellulitis Patient is a 88-year-old female with a past medical history significant for diabetes mellitus hypertension hyperlipidemia COPD atrial fibrillation patient also have a chronic nonhealing wound to the right lower extremity and presented to the hospital with fever confusion patient was noted to be septic possibly to the right lower extremity wound infection and cellulitis. On today's evaluation that is 07/18/2023, Patient is afebrile patient is currently on room air and denies having any shortness of breath, the patient denies any chest pain or cough, the patient denies any nausea vomiting did not have any abdominal pain and no diarrhea, overall redness of the right leg has decreased in intensity. The patient white count is 6.7, creatinine is 1.20 blood culture repeat so far negative bone scan was negative for osteomyelitis Objective - Vital Signs Vital signs: Vital Signs Temp 98.7 F 07/18/23 07:23 Pulse 97 07/18/23 07:23 Resp 20 07/18/23 07:23 BP 103/56 07/18/23 07:23 Pulse Ox 96 07/18/23 07:23 FiO2 Intake & Output 07/17/23 07/18/23 07/18/23 18:59 06:59 18:59 Intake Total 1100 Output Total 400 Balance 700 Weight 92 kg 92.5 kg Intake: Intake, IV Titration 100 Amount Piperacillin-Tazobactam 3 100 .375 gm In Sodium Chloride 0.9% 100 ml @ 25 mls/hr IVPB Q8HR [facility] Rx# :[id number] Oral 1000 Output: Urine 400 Other: Voiding Method Toilet External Catheter # Voids 5 1 - Exam GENERAL DESCRIPTION: An elderly female lying in bed in no distress RESPIRATORY SYSTEM: Unlabored breathing , decreased breath sounds at bases HEART: S1 S2 regular rate and rhythm , ABDOMEN: Soft , no tenderness EXTREMITIES: Right leg wound is currently dressed right lower extremity redness slightly decreased in intensity - Labs CBC & Chem 7: 07/18/23 06:01 07/18/23 06:01 Labs: Abnormal Lab Results - Last 24 Hours (Table) 07/17/23 07/17/23 07/17/23 Range/Units 06:56 06:56 11:10 RBC 2.70 L (4.10-5.20) X 10*6/uL Hgb 7.6 L (12.0-15.0) g/dL Hct 24.3 L (37.2-46.3) % MCHC 31.3 L (32.0-37.0) g/dL Plt Count 94 L (140-440) X 10*3/uL Lymphocytes # 0.62 L (0.90-5.00) X 10*3/uL ESR 40 H (0-30) mm/Hr Sodium (137-145) mmol/L BUN 32.2 H (9.0-27.0) mg/dL Creatinine (0.52-1.04) mg/dL Est GFR (CKD-EPI) 44 L (>=60) BUN/Creatinine Ratio 26.83 H (12.00-20.00) Ratio POC Glucose (mg/dL) 224 H (70-110) mg/dL Calcium 8.6 L (8.7-10.3) mg/dL Alkaline Phosphatase 240 H (41-126) U/L C-Reactive Protein 12.50 H (0.00-0.80) mg/dL Total Protein 5.7 L (6.2-8.2) g/dL Albumin 3.3 L (3.8-4.9) g/dL Albumin/Globulin Ratio 1.38 L (1.60-3.17) Ratio 07/17/23 07/17/23 07/18/23 Range/Units 16:23 20:51 06:01 RBC 2.59 L (4.10-5.20) X 10*6/uL Hgb 7.6 L (12.0-15.0) g/dL Hct 23.0 L (37.2-46.3) % MCHC (32.0-37.0) g/dL Plt Count 94 L (140-440) X 10*3/uL Lymphocytes # 0.8 L (0.90-5.00) X 10*3/uL ESR (0-30) mm/Hr Sodium (137-145) mmol/L BUN (9.0-27.0) mg/dL Creatinine (0.52-1.04) mg/dL Est GFR (CKD-EPI) (>=60) BUN/Creatinine Ratio (12.00-20.00) Ratio POC Glucose (mg/dL) 210 H 165 H (70-110) mg/dL Calcium (8.7-10.3) mg/dL Alkaline Phosphatase (41-126) U/L C-Reactive Protein (0.00-0.80) mg/dL Total Protein (6.2-8.2) g/dL Albumin (3.8-4.9) g/dL Albumin/Globulin Ratio (1.60-3.17) Ratio 07/18/23 Range/Units 06:01 RBC (4.10-5.20) X 10*6/uL Hgb (12.0-15.0) g/dL Hct (37.2-46.3) % MCHC (32.0-37.0) g/dL Plt Count (140-440) X 10*3/uL Lymphocytes # (0.90-5.00) X 10*3/uL ESR (0-30) mm/Hr Sodium 134 L (137-145) mmol/L BUN 32 H (9.0-27.0) mg/dL Creatinine 1.20 H (0.52-1.04) mg/dL Est GFR (CKD-EPI) (>=60) BUN/Creatinine Ratio (12.00-20.00) Ratio POC Glucose (mg/dL) (70-110) mg/dL Calcium 8.1 L (8.7-10.3) mg/dL Alkaline Phosphatase (41-126) U/L C-Reactive Protein (0.00-0.80) mg/dL Total Protein (6.2-8.2) g/dL Albumin (3.8-4.9) g/dL Albumin/Globulin Ratio (1.60-3.17) Ratio Microbiology - Last 24 Hours (Table) 07/14/23 08:22 Blood Culture - Preliminary Blood 07/15/23 05:28 Blood Culture - Preliminary Blood Assessment and Plan (1) Cellulitis of right leg Current Visit: Yes Status: Acute Code(s): L03.115 - CELLULITIS OF RIGHT LOWER LIMB SNOMED Code(s): 49806031789441815 (2) Leukocytosis Current Visit: Yes Status: Acute Code(s): D72.829 - ELEVATED WHITE BLOOD CELL COUNT, UNSPECIFIED SNOMED Code(s): 932147771 (3) Bacteremia Current Visit: Yes Status: Acute Code(s): R78.81 - BACTEREMIA SNOMED Code(s): 5263782 (4) Chronic wound of extremity Current Visit: Yes Status: Acute Code(s): OEL6174 - SNOMED Code(s): 35920834125469 Plan: 1patient presented to the hospital with sepsis in this patient who did have a fever tachycardia elevated white count source likely right lower extremity wound with secondary cellulitis as currently no other obvious focus of infection patient did not have respiratory symptoms lungs are clear to auscultation chest x-ray was negative abdominal soft urine is negative, we will likely need to c over for the gram-positive skin rodney to be the likely pathogen 2patient did have group G strep bacteremia source likely right lower extremity wound and cellulitis 3blood cultures has been repeated and so far negative 4local culture growing group B strep as well as Enterobacter that is resistant to Unasyn and MSSA 5patient did have worsening of her cellulitis to the right lower extremity and also spiked a fever, patient antibiotic has been adjusted to Zosyn vascular surgery was consulted for debridement and deep culture however they have evaluated patient and are recommending surgical debridement bone scan is negative for osteomyelitis we will continue patient on Zosyn while inpatient fi nishing therapy with oral antibiotics Son at the bedside questions answered Dictation was produced using [employer] dictation software. please excuse any grammatical, word or spelling errors. Time with Patient: Less than 30
[2023-07-18 16:38] LABS: Glucose,Whole Blood 134 mg/dL (70-110)
[2023-07-18 20:07] LABS: Glucose,Whole Blood 263 mg/dL (70-110)
[2023-07-19 05:51] LABS: Glucose,Whole Blood 149 mg/dL (70-110)
[2023-07-19 09:58] LABS: HCT 21.6 % (37.2-46.3); HGB 6.9 g/dL (12.0-15.0); MCH 28.6 pg (27.0-32.0); MCHC 31.9 g/dL (32.0-37.0); MCV 89.6 FL (80.0-97.0); Mean Platelet Volume 11.1 FL (9.5-12.2); NRBC Per 100 WBC 0 X 10*3/uL (0.00-0.01); Platelet Count 117 X 10*3/uL (140-440); RBC 2.41 X 10*6/uL (4.10-5.20); RDW 14.2 % (11.5-14.5); WBC 5.93 X 10*3/uL (4.50-10.00)
[2023-07-19 10:07] LABS: ALT 19 U/L (8-44); AST 22 U/L (13-35); Albumin 2.9 g/dL (3.8-4.9); Albumin/Globulin Ratio 1.32 Ratio (1.60-3.17); Alkaline Phosphatase 324 U/L (41-126); BUN/Creat Ratio 22.31 Ratio (12.00-20.00); Calcium 8.3 mg/dL (8.7-10.3); Carbon Dioxide 22.2 mmol/L (21.6-31.8); Chloride 103 mmol/L (96-109); Globulin 2.2 g/dL (1.6-3.3); Glucose 109 mg/dL (70-110); Magnesium 1.9 mg/dL (1.5-2.4); Sodium 135 mmol/L (135-145); Total Bilirubin 0.6 mg/dL (0.3-1.2); Total Protein 5.1 g/dL (6.2-8.2)
[2023-07-19 11:52] LABS: Glucose,Whole Blood 113 mg/dL (70-110)
--- NOTE | 2023-07-19 12:30 | P.PN ---
Subjective Progress Note Date: 07/19/23 This is an 88-year-old female with history of multiple medical problems including chronic right lower extremity nonhealing ulcer, chronic atrial fibrillation, chronic anemia, dementia, dyslipidemia, history of aortic valve stenosis and previous TAVR, type 2 diabetes, essential hypertension, mild obstructive lung disease and restrictive lung disease, brought into the emergency room yesterday mostly with concern of family members about her confusion and low-grade fever. Patient developed chills and mental status change, patient had no symptoms of cough, no shortness of breath, no headache, no neck pain, no nausea, no abdominal pain, no melena, no hematemesis. Patient does have history of chronic right lower extremity ulcer, and has required antibiotics in the past for this ulcer, continues to follow-up usually with the wound care center for her ulcer. In the ER, patient had a relatively normal CT of the brain, chest x-ray was also unremarkable, patient was noted to be hypotensive, and she received fluid boluses, did not require any epinephrine initially, but today after I saw the patient and she was getting fluids at 150 cc/h, patient developed hypotension requiring norepinephrine, and I felt that the patient has sepsis and possibly septic shock. And the patient is receiving antibiotic in the form of vancomycin and Rocephin. Blood cultures are pending. WBC count is 13.8 hemoglobin is 8.4. Basic metabolic profile is normal creatinine went up from 1.32 up to 1.40 in less than 24 hours. Patient had negative drug screen, negative influenza a influenza B RSV and COVID-19 screeni ng. Analysis was noted to be unremarkable. Lactic acid on admission was 1.1 hemoglobin this morning was 8.4, her hemoglobin on admission was 10.5, reminded patient received few liters of fluid since admission Patient was reevaluated today on 07/14/23, patient remains in the ICU, still requiring norepinephrine at 0.05 mcg/kg/min. Blood cultures on this patient came back positive for beta-hemolytic strep group G, her wound cultures came back positive for beta-hemolytic strep and gram-negative bacilli. Her antibiotics were transitioned to Unasyn, clinically the patient is feeling better, she is more awake today, her blood pressure seems to be stabilizing, and she is on a very minimal dose of norepinephrine which would likely be discontinued in the next few hours norepinephrine is being titrated down. WBC count today is 16 hemoglobin 8.1 basic metabolic profile is normal renal profile is improving creatinine is down to 1.30 from 1.40 yesterday. Reevaluated today on 07/15/2023, patient remains in the ICU, patient is doing well, not in any distress, she is actually on room air, she is off norepinephrine, she had good urine output, remains on antibiotics for her bacteremia and septic shock presentation, hemodynamically stable. WBC count is 8.1 hemoglobin 7.5 basic metabolic profile is normal renal profile is improving creatinine down to 1.22, patient remains on Unasyn The patient is seen today July 16, 2023 in follow-up on the regular medical floor. She was transferred out of the ICU yesterday. She remains awake and alert in no acute distress. Maintaining good O2 saturations in the 90s on room air. She is continued on Unasyn and Cipro for right lower extremity cellulitis. Doppler negative for DVT. Wound culture was positive for beta-hemolytic strep group G, Enterobacter [place], methicillin sensitive staphylococcus aureus. White count 7.6. Hemoglobin 7.8. Platelets 82,000. Sodium 132. Potassium 4.0. Bicarb 21. BUN 42. Creatinine 1.08. Glucose 106 The patient is seen today July 17, 2023 in follow-up on the regular medical floor. She is currently sitting up in bed. Awake and alert in no acute distress. Family is at the bedside. She denies any worsening shortness of breath, cough or congestion. She is maintaining good O2 saturations in the 90s on room air. She is afebrile. Hemodynamically stable. No plans for surgical debridement of the right lower extremity wound. Cellulitis is unchanged. Bone scan is pending. She remains on antibiotics in the form of Zosyn. Anticoagulated with Eliquis. Follow-up blood cultures revealing no growth. White count 6.5. Hemoglobin 7.6. Platelets 94,000. Sodium 136. Potassium 4.0. Bicarb 25. BUN 32. Creatinine 1.2. C-reactive protein 12.5. The patient is seen today July 18, 2023 and follow-up on the regular medical floor. She awake and alert in no acute distress. Resting comfortably in bed. Denies any worsening shortness of breath, cough or congestion. Maintaining good O2 saturations in the 90s on room air. She has been afebrile. Hemodynamically stable. Bone scan revealed no evidence of osteomyelitis of the right lower extremity. There is noted cellulitis. There is degenerative uptake in the left knee and left midfoot. Follow-up blood cultures revealed no growth. White count 6.7. Hemoglobin 7.6. Platelets 94,000. Sodium 134. Potassium 3.8. Bicarb 23. BUN 32. Creatinine 1.20. Glucose 108. She remains on antibiotics in the form of Zosyn. The patient is seen today July 19, 2023 in follow-up on the regular medical floor. She is resting comfortably in bed. She is awake and alert in no acute distress. Maintaining good O2 saturations in the 90s on room air. Right leg cellulitis and wound culture positive for beta-hemolytic strep group G, Enterobacter [place], Staphylococcus aureus. Follow-up blood cultures revealed no growth. White count 5.9. Hemoglobin 6.9. Platelets 117. Sodium 135. Potassium 4.0. Bicarb 22. BUN 29. Creatinine 1.3. Glucose 109. 1 unit of packed red blood cells have been ordered. She remains on antibiotics in the form of Zosyn. Anticoagulated with Eliquis. Objective - Vital Signs Vital signs: Vital Signs Temp 98.3 F 07/19/23 07:42 Pulse 91 07/19/23 07:42 Resp 19 07/19/23 07:42 BP 114/64 07/19/23 07:42 Pulse Ox 97 07/19/23 07:42 FiO2 Intake & Output 07/18/23 07/19/23 07/19/23 18:59 06:59 18:59 Output Total 400 Balance -400 Weight 95 kg Output: Urine 400 Other: Voiding Method External Catheter External Catheter External Catheter - Exam General: Awake, 88-year-old female, in no acute distress. Resting comfortably i n bed. On room air. Skin: Skin is warm and dry chronic large nonhealing ulcer noted on the distal aspect of the right lower extremity above the ankle. Eye: Pupils are equal, round and reactive to light, extra-ocular movements are intact; there is normal conjunctiva bilaterally. Ears, nose, mouth and throat: There are moist mucous membranes and no oral lesions. Neck: The neck is supple, there is no tenderness or JVD. Cardiovascular: Irregular irregular rhythm, 2/6 systolic murmur throughout the precordium.. Respiratory: Clear bilaterally no rhonchi no wheezes. Gastrointestinal: Soft, non-distended, non-tender abdomen without masses or organomegaly noted. There is no rebound or guarding present. Bowel sounds are unremarkable. Musculoskeletal: Normal ROM, no tenderness. Extremities: No clubbing, no cyanosis, patient has a chronic nonhealing ulcer noted in the right lower extremity just above the right ankle. Significant cellulitis of the right lower extremity Neurological: Alert oriented x 3 no gross focal deficit. Psychiatric: Normal mood and affect and normal mental status examination. - Labs CBC & Chem 7: 07/19/23 06:12 07/19/23 06:12 Labs: Abnormal Lab Results - Last 24 Hours (Table) 07/18/23 07/18/23 07/19/23 Range/Units 16:37 20:05 05:49 RBC (4.10-5.20) X 10*6/uL Hgb (12.0-15.0) g/dL Hct (37.2-46.3) % MCHC (32.0-37.0) g/dL Plt Count (140-440) X 10*3/uL BUN (9.0-27.0) mg/dL Est GFR (CKD-EPI) (>=60) BUN/Creatinine Ratio (12.00-20.00) Ratio POC Glucose (mg/dL) 134 H 263 H 149 H (70-110) mg/dL Calcium (8.7-10.3) mg/dL Alkaline Phosphatase (41-126) U/L Total Protein (6.2-8.2) g/dL Albumin (3.8-4.9) g/dL Albumin/Globulin Ratio (1.60-3.17) Ratio Crossmatch 07/19/23 07/19/23 07/19/23 Range/Units 06:12 06:12 10:53 RBC 2.41 L (4.10-5.20) X 10*6/uL Hgb 6.9 A* (12.0-15.0) g/dL Hct 21.6 L (37.2-46.3) % MCHC 31.9 L (32.0-37.0) g/dL Plt Count 117 L (140-440) X 10*3/uL BUN 29.0 H (9.0-27.0) mg/dL Est GFR (CKD-EPI) 40 L (>=60) BUN/Creatinine Ratio 22.31 H (12.00-20.00) Ratio POC Glucose (mg/dL) (70-110) mg/dL Calcium 8.3 L (8.7-10.3) mg/dL Alkaline Phosphatase 324 H (41-126) U/L Total Protein 5.1 L (6.2-8.2) g/dL Albumin 2.9 L (3.8-4.9) g/dL Albumin/Globulin Ratio 1.32 L (1.60-3.17) Ratio Crossmatch See Detail 07/19/23 Range/Units 11:51 RBC (4.10-5.20) X 10*6/uL Hgb (12.0-15.0) g/dL Hct (37.2-46.3) % MCHC (32.0-37.0) g/dL Plt Count (140-440) X 10*3/uL BUN (9.0-27.0) mg/dL Est GFR (CKD-EPI) (>=60) BUN/Creatinine Ratio (12.00-20.00) Ratio POC Glucose (mg/dL) 113 H (70-110) mg/dL Calcium (8.7-10.3) mg/dL Alkaline Phosphatase (41-126) U/L Total Protein (6.2-8.2) g/dL Albumin (3.8-4.9) g/dL Albumin/Globulin Ratio (1.60-3.17) Ratio Crossmatch Microbiology - Last 24 Hours (Table) 07/15/23 05:28 Blood Culture - Preliminary Blood 07/12/23 20:30 Blood Culture - Final Blood Assessment and Plan Assessment: Hypotension, secondary to septic shock and beta-hemolytic strep group G bacte remia with right lower extremity cellulitis. Recovered and off pressors. Follow-up blood cultures revealed no growth Chronic infected right lower extremity ulcer is the most likely source of her in fection and sepsis. Cultures positive for beta-hemolytic strep group G, Enterobacter cloacae, methicillin sensitive Staphylococcus aureus. Bone scan revealed no evidence of osteomyelitis. She remains on Zosyn Chronic anemia and today's hemoglobin 6.9, 1 unit of packed red blood cells ordered Type 2 diabetes with diabetic nephropathy Acute on chronic kidney injury most likely secondary to sepsis/acute tubular necrosis Toxic metabolic encephalopathy History of underlying dementia History of chronic anemia History of benign positional vertigo History of underlying COPD mild to moderate History of closed fracture of neck of right femur History of aortic stenosis and previous TAVR History of GERD Benign essential hypertension Dyslipidemia Insomnia Chronic fatigue Chronic atrial fibrillation Plan: The patient was seen and evaluated Labs and medications reviewed To receive 1 unit of packed red blood cells today Continued on Zosyn for cellulitis Infectious disease is following Currently stable and on room air Plan is for home with home care at discharge This patient was seen independently by the pulmonary nurse practitioner addressing pulmonary issues I have personally seen and examined the patient, performed the documentation and the assessment and plan as written. Number of minutes spent on the visit: 22.
--- NOTE | 2023-07-19 13:34 | P.PN ---
Subjective Progress Note Date: 07/19/23 Hospital course: Patient is a 88-year-old female with diabetes mellitus type 2 with peripheral neuropathy, chronic A-fib on Eliquis, COPD, hypertension, dyslipidemia, and chronic right lower extremity nonhealing ulcer who presented to the emergency department due to confusion and fever. On arrival to the ER here vital signs were remarkable for temperature of 102.3 and a pulse of 140. Laboratory analysis was remarkable for white blood cell count 13.7, hemoglobin 10.5, platelets 127, creatinine 1.32. Cepheid 4 Plex was negative. Drug screen was negative. Chest x-ray demonstrated no acute process CT head demonstrated moderate atrophy with microvascular ischemic changes. It was felt that her sepsis was likely secondary to her right lower extremity ulcer. She was started on ceftriaxone and vancomycin. Infectious disease was consulted and she was st arted on normal saline. She became hypotensive overnight and received 1 additional unit of fluid. She again became hypotensive on the morning of 07/13 necessitating norepinephrine. Her blood cultures came back positive for group B strep bacteremia. She was able to be weaned off pressors on 07/14. She continued to improve. However, now having worsening cellulitis, and having fevers again. Antibiotics broadened. ID following. Vascular surgery following, not recommending any further debridement. Nuclear medicine bone scan completed and report reviewed showing no skin to graphic evidence for osteomyelitis showing cellulitis changes of right lower extremity. Physical exam: Patient seen and fully evaluated at the bedside. Patient seen and fully ev aluated at bedside. Family also visiting at bedside. Patient currently reports pain in right leg is controlled and denies having any needs or new complaints at this time. Patient and family updated on plan of care and patient encouraged to get up to chair with meals today. Vital signs reviewed and stable. General: Nontoxic, no distress and appears stated age. Derm: Skin warm and dry, normal coloration for ethnicity. Head: Atraumatic, normocephalic and symmetric. Eyes: EOMs intact, no lid lag, and anicteric sclera Mouth: no lip lesions, mucus membranes moist Cardiovascular: regular rate and rhythm with normal S1S2, systolic murmur, positive posterior tibial pulses bilaterally, and cap refill < 2 seconds. Lungs: Respirations even, regular, and unlabored on room air. Lungs CTA brayden aterally, no rhonchi, no rales, no wheezing, and no accessory muscle usage. Abdominal: soft, nontender to palpation, no guarding, no appreciable organomegaly Ext: ROM intact. No gross muscle atrophy, 1-2+ pitting lower extremity edema, no contractures, venous stasis dermatitis to bilateral lower extremities. Large ulcer right lower hernandez, showing new pink skin growth. Kerlix dressing changed at this time. Neuro: Speech clear, face symmetrical and CN II-XII grossly intact with no noted focal neuro deficits. Psych: Alert and oriented to person, place, time, and situation. Appropriate and pleasant affect. Assessment and Plan of Care: Polymicrobial Infected right lower extremity ulcer, now with surrounding cellulitis Bacteremia, group B strep Enlarged lymph nodes right groin, likely secondary to right lower extremity cellulitis resulting from infected ulcer Septic shock, secondary to above. Resolved Toxic metabolic encephalopathy, secondary to above. Resolved -Wound culture results positive for beta-hemolytic strep group G, Enterobacter cloacae, and Staphylococcus aureus. -Blood cultures positive for beta-hemolytic strep group G -Right lower extremity Doppler was negative for DVT but did reveal multiple enlarged lymph nodes within the right groin and generalized subcutaneous soft tissue swelling. -Nuclear medicine bone scan completed and report reviewed showing no skin to graphic evidence for osteomyelitis showing cellulitis changes of right lower extremity. -Blood pressures remain soft, continue to hold all home blood pressure medications at this time -Continue IV antibiotics with Zosyn 3.375 g every 8 hours -Infectious disease following, reviewed documentation in chart -Vascular surgery evaluated, clearing patient from their perspective stating right lower extremity ulcer does not require additional debridement at this time. -Wound care recommendations: Santyl, moist gauze, then dry gauze and roll with gauze. Return to wound care center July 23 at 12:45 PM -PT and OT consulted for evaluation. Acute on chronic anemia Bicytopenia with anemia and thrombocytopenia. Iron deficiency anemia -Hemoglobin 6.9. Orders placed for 1 unit PRBCs. -Continue ferrous sulfate 325 mg daily along with ascorbic acid 1000 mg daily. -Continue to monitor with repeat morning CBC, will transfuse as needed for hemoglobin less than 7 and/or platelet count less than 25. Acute kidney injury on chronic kidney disease stage III, resolved -Continue to hold fosinopril/hydrochlorothiazide and Lasix. [id number] diabetes mellitus type 2 -Blood glucose levels stable ranging from 95-263 over the past 24 hours. -Continue to hold metformin. -Continue glycemic protocol with NovoLog sliding scale to maintain tight glycemic control throughout hospitalization. -Hemoglobin A1c 5.4%. Imaging reviewed: -No new imaging for review. Data Reviewed: -Morning labs completed and reviewed. CBC showing bicytopenia with hemoglobin of 6.9 and platelet count of 117. BMP showing mild prerenal azotemia with BUN of 29.0. Liver profile showing elevated alkaline phosphatase of 324. Magnesium normal findings at 1.9. -Vital signs reviewed and stable. Vital signs reviewed and stable. Blood pressure 114/64, heart rate 91, respiratory rate 19, temp 98.3 F, and SpO2 of 97% on room air. CODE STATUS: DNR/DNI DVT prophylaxis: Eliquis Anticipated discharge date: Pending Clinical Course Anticipated discharge place: Patient will likely need subacute rehab on discharge Patient was seen independently by Nurse Pracitioner. This document was prepared using [employer] dictation software. Please allow for errors in stone rougher, while rare they do occur. This patient was seen independently by Vladimir HODGES. I agree with the assessment and plan done by my colleague. Objective - Vital Signs Vital signs: Vital Signs Temp 97.7 F 07/19/23 01:30 Pulse 96 07/19/23 01:30 Resp 18 07/19/23 01:30 BP 121/74 07/19/23 01:30 Pulse Ox 96 07/19/23 01:30 FiO2 Intake & Output 07/18/23 07/19/23 07/19/23 18:59 06:59 18:59 Output Total 400 Balance -400 Weight 95 kg Output: Urine 400 Other: Voiding Method External Catheter External Catheter External Catheter - Labs CBC & Chem 7: 07/19/23 06:12 07/19/23 06:12 Labs: Abnormal Lab Results - Last 24 Hours (Table) 07/18/23 07/18/23 07/18/23 Range/Units 11:32 16:37 20:05 POC Glucose (mg/dL) 142 H 134 H 263 H (70-110) mg/dL 07/19/23 Range/Units 05:49 POC Glucose (mg/dL) 149 H (70-110) mg/dL Microbiology - Last 24 Hours (Table) 07/15/23 05:28 Blood Culture - Preliminary Blood 07/12/23 20:30 Blood Culture - Final Blood
[2023-07-19 16:51] LABS: Glucose,Whole Blood 114 mg/dL (70-110)
[2023-07-19 20:30] LABS: Glucose,Whole Blood 225 mg/dL (70-110)
--- NOTE | 2023-07-19 22:45 | P.PN ---
Subjective Progress Note Date: 07/19/23 Principal diagnosis: Reason for follow-up is sepsis right leg wound and cellulitis Patient is a 88-year-old female with a past medical history significant for diabetes mellitus hypertension hyperlipidemia COPD atrial fibrillation patient also have a chronic nonhealing wound to the right lower extremity and presented to the hospital with fever confusion patient was noted to be septic possibly to the right lower extremity wound infection and cellulitis. On today's evaluation that is 07/19/2023,the patient denies any fever or any chills, patient is breathing comfortably on room air, the patient denies chest pain shortness of breath and no significant cough, patient denies abdominal pain, no nausea vomiting or diarrhea. Pain and redness to the right lower extre mity has decreased in intensity. The patient did have a white count of 5.93 creatinine is 1.3 blood culture is so far negative Objective - Vital Signs Vital signs: Vital Signs Temp 98.3 F 07/19/23 07:42 Pulse 91 07/19/23 07:42 Resp 19 07/19/23 07:42 BP 114/64 07/19/23 07:42 Pulse Ox 97 07/19/23 07:42 FiO2 Intake & Output 07/18/23 07/19/23 07/19/23 18:59 06:59 18:59 Output Total 400 Balance -400 Weight 95 kg Output: Urine 400 Other: Voiding Method External Catheter External Catheter External Catheter - Exam GENERAL DESCRIPTION: An elderly female lying in bed in no distress RESPIRATORY SYSTEM: Unlabored breathing , decreased breath sounds at bases HEART: S1 S2 regular rate and rhythm , ABDOMEN: Soft , no tenderness EXTREMITIES: Right leg wound is currently dressed right lower extremity redness slightly decreased in intensity - Labs CBC & Chem 7: 07/19/23 06:12 07/19/23 06:12 Labs: Abnormal Lab Results - Last 24 Hours (Table) 07/18/23 07/18/23 07/18/23 Range/Units 11:32 16:37 20:05 RBC (4.10-5.20) X 10*6/uL Hgb (12.0-15.0) g/dL Hct (37.2-46.3) % MCHC (32.0-37.0) g/dL Plt Count (140-440) X 10*3/uL BUN (9.0-27.0) mg/dL Est GFR (CKD-EPI) (>=60) BUN/Creatinine Ratio (12.00-20.00) Ratio POC Glucose (mg/dL) 142 H 134 H 263 H (70-110) mg/dL Calcium (8.7-10.3) mg/dL Alkaline Phosphatase (41-126) U/L Total Protein (6.2-8.2) g/dL Albumin (3.8-4.9) g/dL Albumin/Globulin Ratio (1.60-3.17) Ratio 07/19/23 07/19/23 07/19/23 Range/Units 05:49 06:12 06:12 RBC 2.41 L (4.10-5.20) X 10*6/uL Hgb 6.9 A* (12.0-15.0) g/dL Hct 21.6 L (37.2-46.3) % MCHC 31.9 L (32.0-37.0) g/dL Plt Count 117 L (140-440) X 10*3/uL BUN 29.0 H (9.0-27.0) mg/dL Est GFR (CKD-EPI) 40 L (>=60) BUN/Creatinine Ratio 22.31 H (12.00-20.00) Ratio POC Glucose (mg/dL) 149 H (70-110) mg/dL Calcium 8.3 L (8.7-10.3) mg/dL Alkaline Phosphatase 324 H (41-126) U/L Total Protein 5.1 L (6.2-8.2) g/dL Albumin 2.9 L (3.8-4.9) g/dL Albumin/Globulin Ratio 1.32 L (1.60-3.17) Ratio Microbiology - Last 24 Hours (Table) 07/15/23 05:28 Blood Culture - Preliminary Blood 07/12/23 20:30 Blood Culture - Final Blood Assessment and Plan (1) Cellulitis of right leg Current Visit: Yes Status: Acute Code(s): L03.115 - CELLULITIS OF RIGHT LOWER LIMB SNOMED Code(s): 24469212042124130 (2) Leukocytosis Current Visit: Yes Status: Acute Code(s): D72.829 - ELEVATED WHITE BLOOD CELL COUNT, UNSPECIFIED SNOMED Code(s): 024489784 (3) Bacteremia Current Visit: Yes Status: Acute Code(s): R78.81 - BACTEREMIA SNOMED Code(s): 7523308 (4) Chronic wound of extremity Current Visit: Yes Status: Acute Code(s): YRI0546 - SNOMED Code(s): 23459874619838 Plan: 1patient presented to the hospital with sepsis in this patient who did have a fever tachycardia elevated white count source likely right lower extremity wound with secondary cellulitis as currently no other obvious focus of infection patient did not have respiratory symptoms lungs are clear to auscultation chest x-ray was negative abdominal soft urine is negative, we will likely need to cover for the gram-positive skin rdoney to be the likely pathogen 2patient did have group G strep bacteremia source likely right lower extremity wound and cellulitis 3blood cultures has been repeated and so far negative 4local culture growing group B strep as well as Enterobacter that is resistant to Unasyn and MSSA 5patient bone scan was negative for osteomyelitis 6-patient did have improvement of cellulitis to right lower extremity and the [facility] is [facility] will benefit from placement of a midline and continuation of IV Zosyn for another 7 to 10 days Multiple family members at the bedside questions were answered Dictation was produced using [employer] dictation software. please excuse any grammatical, word or spelling errors. Time with Patient: Less than 30
[2023-07-20 06:03] LABS: Glucose,Whole Blood 117 mg/dL (70-110)
[2023-07-20 09:10] LABS: HCT 24.5 % (37.2-46.3); HGB 7.9 g/dL (12.0-15.0); MCH 28.4 pg (27.0-32.0); MCHC 32.2 g/dL (32.0-37.0); MCV 88.1 FL (80.0-97.0); Mean Platelet Volume 10.4 FL (9.5-12.2); NRBC Per 100 WBC 0 X 10*3/uL (0.00-0.01); Platelet Count 151 X 10*3/uL (140-440); RBC 2.78 X 10*6/uL (4.10-5.20); RDW 14.1 % (11.5-14.5); WBC 5.85 X 10*3/uL (4.50-10.00)
[2023-07-20 09:17] LABS: ALT 19 U/L (8-44); AST 20 U/L (13-35); Albumin/Globulin Ratio 1.25 Ratio (1.60-3.17); Alkaline Phosphatase 335 U/L (41-126); BUN/Creat Ratio 21.36 Ratio (12.00-20.00); Blood Urea Nitrogen 23.5 mg/dL (9.0-27.0); Calcium 8.4 mg/dL (8.7-10.3); Carbon Dioxide 22.5 mmol/L (21.6-31.8); Chloride 104 mmol/L (96-109); Globulin 2.4 g/dL (1.6-3.3); Glucose 86 mg/dL (70-110); Magnesium 1.7 mg/dL (1.5-2.4); Potassium 4.1 mmol/L (3.5-5.5); Sodium 136 mmol/L (135-145); Total Bilirubin 0.8 mg/dL (0.3-1.2); Total Protein 5.4 g/dL (6.2-8.2)
[2023-07-20 11:58] LABS: Glucose,Whole Blood 119 mg/dL (70-110)
--- NOTE | 2023-07-20 12:39 | P.PN ---
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 On today's evaluation that is07/20/2023,the patient remains to be afebrile, patient is on room air not requiring supplemental oxygen and denies any shortness of breath no chest pain or cough.Patient denies having any nausea or vomiting, no abdominal pain and no diarrhea has been reported, denies pain to the right lower extremity. Patient white count is 5.5, creatinine is 1.1 Objective - Vital Signs Vital signs: Vital Signs Temp 98.9 F 07/20/23 07:46 Pulse 91 07/20/23 07:46 Resp 18 07/20/23 07:46 BP 108/69 07/20/23 07:46 Pulse Ox 95 07/20/23 07:46 FiO2 Intake & Output 07/19/23 07/20/23 07/20/23 18:59 06:59 18:59 Intake Total 310 Output Total 300 750 Balance 10 -750 Weight 94.5 kg Intake: Blood Product 310 Rc As-1 Unit 310 [id number] Output: Urine 300 750 Other: Voiding Method External Catheter External Catheter # Bowel Movements 1 - Exam GENERAL DESCRIPTION: An elderly female lying in bed in no distress RESPIRATORY SYSTEM: Unlabored breathing , decreased breath sounds at bases HEART: S1 S2 regular rate and rhythm , ABDOMEN: Soft , no tenderness EXTREMITIES: Right leg wound is currently dressed right lower extremity redness slightly decreased in intensity - Labs CBC & Chem 7: 07/20/23 05:45 07/20/23 05:45 Labs: Abnormal Lab Results - Last 24 Hours (Table) 07/19/23 07/19/23 07/19/23 Range/Units 06:12 10:53 11:51 RBC (4.10-5.20) X 10*6/uL Hgb (12.0-15.0) g/dL Hct (37.2-46.3) % BUN 29.0 H (9.0-27.0) mg/dL Est GFR (CKD-EPI) 40 L (>=60) BUN/Creatinine Ratio 22.31 H (12.00-20.00) Ratio POC Glucose (mg/dL) 113 H (70-110) mg/dL Calcium 8.3 L (8.7-10.3) mg/dL Alkaline Phosphatase 324 H (41-126) U/L Total Protein 5.1 L (6.2-8.2) g/dL Albumin 2.9 L (3.8-4.9) g/dL Albumin/Globulin Ratio 1.32 L (1.60-3.17) Ratio Crossmatch See Detail 07/19/23 07/19/23 07/20/23 Range/Units 16:50 20:28 05:45 RBC 2.78 L (4.10-5.20) X 10*6/uL Hgb 7.9 L (12.0-15.0) g/dL Hct 24.5 L (37.2-46.3) % BUN (9.0-27.0) mg/dL Est GFR (CKD-EPI) (>=60) BUN/Creatinine Ratio (12.00-20.00) Ratio POC Glucose (mg/dL) 114 H 225 H (70-110) mg/dL Calcium (8.7-10.3) mg/dL Alkaline Phosphatase (41-126) U/L Total Protein (6.2-8.2) g/dL Albumin (3.8-4.9) g/dL Albumin/Globulin Ratio (1.60-3.17) Ratio Crossmatch 07/20/23 07/20/23 Range/Units 05:45 06:02 RBC (4.10-5.20) X 10*6/uL Hgb (12.0-15.0) g/dL Hct (37.2-46.3) % BUN (9.0-27.0) mg/dL Est GFR (CKD-EPI) 49 L (>=60) BUN/Creatinine Ratio 21.36 H (12.00-20.00) Ratio POC Glucose (mg/dL) 117 H (70-110) mg/dL Calcium 8.4 L (8.7-10.3) mg/dL Alkaline Phosphatase 335 H (41-126) U/L Total Protein 5.4 L (6.2-8.2) g/dL Albumin 3.0 L (3.8-4.9) g/dL Albumin/Globulin Ratio 1.25 L (1.60-3.17) Ratio Crossmatch Microbiology - Last 24 Hours (Table) 07/14/23 08:22 Blood Culture - Final Blood Assessment and Plan (1) Cellulitis of right leg Current Visit: Yes Status: Acute Code(s): L03.115 - CELLULITIS OF RIGHT LOWER LIMB SNOMED Code(s): 92182976842497461 (2) Leukocytosis Current Visit: Yes Status: Acute Code(s): D72.829 - ELEVATED WHITE BLOOD CELL COUNT, UNSPECIFIED SNOMED Code(s): 322305638 (3) Bacteremia Current Visit: Yes Status: Acute Code(s): R78.81 - BACTEREMIA SNOMED Code(s): 1916175 (4) Chronic wound of extremity Current Visit: Yes Status: Acute Code(s): [id number] - SNOMED Code(s): 70919540085404 Plan: 1patient presented to the hospital with sepsis in this patient who did have a fever tachycardia elevated white count source likely right lower extremity wound with secondary cellulitis as currently no other obvious focus of infection patient did not have respiratory symptoms lungs are clear to auscultation chest x-ray was negative abdominal soft urine is negative, we will likely need to cover for the gram-positive skin rodney to be the likely pathogen 2patient did have group G strep bacteremia source likely right lower extremity wound and cellulitis 3blood cultures has been repeated and so far negative 4local culture growing group B strep as well as Enterobacter that is resistant to Unasyn and MSSA 5patient bone scan was negative for osteomyelitis 6-patient did have improvement of cellulitis to right lower extremity will benefit from a short course that is 7 to 10 days of IV Zosyn on discharge. Which can be done through a midline Dictation was produced using [employer] dictation software. please excuse any grammatical, word or spelling errors. Time with Patient: Less than 30
--- NOTE | 2023-07-20 13:27 | P.PN ---
Subjective Progress Note Date: 07/20/23 This is an 88-year-old female with history of multiple medical problems including chronic right lower extremity nonhealing ulcer, chronic atrial fibrillation, chronic anemia, dementia, dyslipidemia, history of aortic valve stenosis and previous TAVR, type 2 diabetes, essential hypertension, mild obstructive lung disease and restrictive lung disease, brought into the emergency room yesterday mostly with concern of family members about her confusion and low-grade fever. Patient developed chills and mental status change, patient had no symptoms of cough, no shortness of breath, no headache, no neck pain, no nausea, no abdominal pain, no melena, no hematemesis. Patient does have history of chronic right lower extremity ulcer, and has required antibiotics in the past for this ulcer, continues to follow-up usually with the wound care center for her ulcer. In the ER, patient had a relatively normal CT of the brain, chest x-ray was also unremarkable, patient was noted to be hypotensive, and she received fluid boluses, did not require any epinephrine initially, but today after I saw the patient and she was getting fluids at 150 cc/h, patient developed hypotension requiring norepinephrine, and I felt that the patient has sepsis and possibly septic shock. And the patient is receiving antibiotic in the form of vancomycin and Rocephin. Blood cultures are pending. WBC count is 13.8 hemoglobin is 8.4. Basic metabolic profile is normal creatinine went up from 1.32 up to 1.40 in less than 24 hours. Patient had negative drug screen, negative influenza a influenza B RSV and COVID-19 screeni ng. Analysis was noted to be unremarkable. Lactic acid on admission was 1.1 hemoglobin this morning was 8.4, her hemoglobin on admission was 10.5, reminded patient received few liters of fluid since admission Patient was reevaluated today on 07/14/23, patient remains in the ICU, still requiring norepinephrine at 0.05 mcg/kg/min. Blood cultures on this patient came back positive for beta-hemolytic strep group G, her wound cultures came back positive for beta-hemolytic strep and gram-negative bacilli. Her antibiotics were transitioned to Unasyn, clinically the patient is feeling better, she is more awake today, her blood pressure seems to be stabilizing, and she is on a very minimal dose of norepinephrine which would likely be discontinued in the next few hours norepinephrine is being titrated down. WBC count today is 16 hemoglobin 8.1 basic metabolic profile is normal renal profile is improving creatinine is down to 1.30 from 1.40 yesterday. Reevaluated today on 07/15/2023, patient remains in the ICU, patient is doing well, not in any distress, she is actually on room air, she is off norepinephrine, she had good urine output, remains on antibiotics for her bacteremia and septic shock presentation, hemodynamically stable. WBC count is 8.1 hemoglobin 7.5 basic metabolic profile is normal renal profile is improving creatinine down to 1.22, patient remains on Unasyn The patient is seen today July 16, 2023 in follow-up on the regular medical floor. She was transferred out of the ICU yesterday. She remains awake and alert in no acute distress. Maintaining good O2 saturations in the 90s on room air. She is continued on Unasyn and Cipro for right lower extremity cellulitis. Doppler negative for DVT. Wound culture was positive for beta-hemolytic strep group G, Enterobacter Leslie, methicillin sensitive staphylococcus aureus. White count 7.6. Hemoglobin 7.8. Platelets 82,000. Sodium 132. Potassium 4.0. Bicarb 21. BUN 42. Creatinine 1.08. Glucose 106 The patient is seen today July 17, 2023 in follow-up on the regular medical floor. She is currently sitting up in bed. Awake and alert in no acute distress. Family is at the bedside. She denies any worsening shortness of breath, cough or congestion. She is maintaining good O2 saturations in the 90s on room air. She is afebrile. Hemodynamically stable. No plans for surgical debridement of the right lower extremity wound. Cellulitis is unchanged. Bone scan is pending. She remains on antibiotics in the form of Zosyn. Anticoagulated with Eliquis. Follow-up blood cultures revealing no growth. White count 6.5. Hemoglobin 7.6. Platelets 94,000. Sodium 136. Potassium 4.0. Bicarb 25. BUN 32. Creatinine 1.2. C-reactive protein 12.5. The patient is seen today July 18, 2023 and follow-up on the regular medical floor. She awake and alert in no acute distress. Resting comfortably in bed. Denies any worsening shortness of breath, cough or congestion. Maintaining good O2 saturations in the 90s on room air. She has been afebrile. Hemodynamically stable. Bone scan revealed no evidence of osteomyelitis of the right lower extremity. There is noted cellulitis. There is degenerative uptake in the left knee and left midfoot. Follow-up blood cultures revealed no growth. White count 6.7. Hemoglobin 7.6. Platelets 94,000. Sodium 134. Potassium 3.8. Bicarb 23. BUN 32. Creatinine 1.20. Glucose 108. She remains on antibiotics in the form of Zosyn. The patient is seen today July 19, 2023 in follow-up on the regular medical floor. She is resting comfortably in bed. She is awake and alert in no acute distress. Maintaining good O2 saturations in the 90s on room air. Right leg cellulitis and wound culture positive for beta-hemolytic strep group G, Enterobacter Leslie, Staphylococcus aureus. Follow-up blood cultures revealed no growth. White count 5.9. Hemoglobin 6.9. Platelets 117. Sodium 135. Potassium 4.0. Bicarb 22. BUN 29. Creatinine 1.3. Glucose 109. 1 unit of packed red blood cells have been ordered. She remains on antibiotics in the form of Zosyn. Anticoagulated with Eliquis. The patient is seen today July 20, 2023 in follow-up on the regular medical floor. She is currently sitting up in bed. Awake and alert in no acute distress. Maintaining good O2 saturations in the 90s on room air. She is still having some right lower extremity discomfort where her cellulitis is. She is status post 1 unit of packed red blood cells this admission. Current hemoglobin 7.9. Platelets 151. White count 5.8. Sodium 136. Potassium 4.1. Bicarb 23. BUN 24. Creatinine 1.1. Glucose 86. She is continued on antibiotics in the form of Zosyn. Anticoagulated with Eliquis. Follow-up blood cultures revealed no growth. Objective - Vital Signs Vital signs: Vital Signs Temp 98.9 F 07/20/23 07:46 Pulse 91 07/20/23 07:46 Resp 18 07/20/23 07:46 BP 108/69 07/20/23 07:46 Pulse Ox 95 07/20/23 07:46 FiO2 Intake & Output 07/19/23 07/20/23 07/20/23 18:59 06:59 18:59 Intake Total 310 100 Output Total 300 750 Balance 10 -750 100 Weight 94.5 kg Intake: Intake, IV Titration 100 Amount Piperacillin-Tazobactam 3 100 .375 gm In Sodium Chloride 0.9% 100 ml @ 25 mls/hr IVPB Q8HR [facility] Rx# :[id number] Blood Product 310 Rc As-1 Unit 310 [id number] Output: Urine 300 750 Other: Voiding Method External Catheter External Catheter # Voids 1 # Bowel Movements 1 1 - Exam General: Awake, alert, very pleasant 88-year-old female. Resting comfortably in bed. On room air. Skin: Skin is warm and dry chronic large nonhealing ulcer noted on the distal aspect of the right lower extremity above the ankle. Eye: Pupils are equal, round and reactive to light, extra-ocular movements are intact; there is normal conjunctiva bilaterally. Ears, nose, mouth and throat: There are moist mucous membranes and no oral lesions. Neck: The neck is supple, there is no tenderness or JVD. Cardiovascular: Irregular irregular rhythm, 2/6 systolic murmur throughout the precordium.. Respiratory: Clear bilaterally no rhonchi no wheezes. Gastrointestinal: Soft, non-distended, non-tender abdomen without masses or organomegaly noted. Bowel sounds are unremarkable. Musculoskeletal: Normal ROM, no tenderness. Extremities: No clubbing, no cyanosis, patient has a chronic nonhealing ulcer noted in the right lower extremity just above the right ankle. Significant cellulitis of the right lower extremity Neurological: Alert oriented x 3 no gross focal deficit. Psychiatric: Normal mood and affect and normal mental status examination. - Labs CBC & Chem 7: 07/20/23 05:45 07/20/23 05:45 Labs: Abnormal Lab Results - Last 24 Hours (Table) 07/19/23 07/19/23 07/19/23 Range/Units 10:53 16:50 20:28 RBC (4.10-5.20) X 10*6/uL Hgb (12.0-15.0) g/dL Hct (37.2-46.3) % Est GFR (CKD-EPI) (>=60) BUN/Creatinine Ratio (12.00-20.00) Ratio POC Glucose (mg/dL) 114 H 225 H (70-110) mg/dL Calcium (8.7-10.3) mg/dL Alkaline Phosphatase (41-126) U/L Total Protein (6.2-8.2) g/dL Albumin (3.8-4.9) g/dL Albumin/Globulin Ratio (1.60-3.17) Ratio Crossmatch See Detail 07/20/23 07/20/23 07/20/23 Range/Units 05:45 05:45 06:02 RBC 2.78 L (4.10-5.20) X 10*6/uL Hgb 7.9 L (12.0-15.0) g/dL Hct 24.5 L (37.2-46.3) % Est GFR (CKD-EPI) 49 L (>=60) BUN/Creatinine Ratio 21.36 H (12.00-20.00) Ratio POC Glucose (mg/dL) 117 H (70-110) mg/dL Calcium 8.4 L (8.7-10.3) mg/dL Alkaline Phosphatase 335 H (41-126) U/L Total Protein 5.4 L (6.2-8.2) g/dL Albumin 3.0 L (3.8-4.9) g/dL Albumin/Globulin Ratio 1.25 L (1.60-3.17) Ratio Crossmatch 07/20/23 Range/Units 11:57 RBC (4.10-5.20) X 10*6/uL Hgb (12.0-15.0) g/dL Hct (37.2-46.3) % Est GFR (CKD-EPI) (>=60) BUN/Creatinine Ratio (12.00-20.00) Ratio POC Glucose (mg/dL) 119 H (70-110) mg/dL Calcium (8.7-10.3) mg/dL Alkaline Phosphatase (41-126) U/L Total Protein (6.2-8.2) g/dL Albumin (3.8-4.9) g/dL Albumin/Globulin Ratio (1.60-3.17) Ratio Crossmatch Microbiology - Last 24 Hours (Table) 07/15/23 05:28 Blood Culture - Final Blood 07/14/23 08:22 Blood Culture - Final Blood Assessment and Plan Assessment: Hypotension, secondary to septic shock and beta-hemolytic strep group G bacteremia with right lower extremity cellulitis. Recovered and off pressors. Follow-up blood cultures revealed no growth Chronic infected right lower extremity ulcer is the most likely source of her infection and sepsis. Cultures positive for beta-hemolytic strep group G, Enterobacter cloacae, methicillin sensitive Staphylococcus aureus. Bone scan revealed no evidence of osteomyelitis. She remains on Zosyn Chronic anemia and today's hemoglobin 7.9, has received 1 unit of packed red blood cells this admission Type 2 diabetes with diabetic nephropathy Acute on chronic kidney injury most likely secondary to sepsis/acute tubular necrosis Toxic metabolic encephalopathy History of underlying dementia History of chronic anemia History of benign positional vertigo History of underlying COPD mild to moderate History of closed fracture of neck of right femur History of aortic stenosis and previous TAVR History of GERD Benign essential hypertension Dyslipidemia Insomnia Chronic fatigue Chronic atrial fibrillation Plan: The patient was seen and evaluated Labs and medications reviewed Continued on Zosyn for cellulitis Infectious disease is following Currently stable and on room air Plan is for home with home care at discharge I have personally seen and examined the patient, performed the documentation and the assessment and plan as written. Number of minutes spent on the visit: 10.
--- NOTE | 2023-07-20 14:49 | P.PN ---
Subjective Progress Note Date: 07/20/23 Hospital course: Patient is a 88-year-old female with diabetes mellitus type 2 with peripheral neuropathy, chronic A-fib on Eliquis, COPD, hypertension, dyslipidemia, and chronic right lower extremity nonhealing ulcer who presented to the emergency department due to confusion and fever. On arrival to the ER here vital signs were remarkable for temperature of 102.3 and a pulse of 140. Laboratory analysis was remarkable for white blood cell count 13.7, hemoglobin 10.5, platelets 127, creatinine 1.32. Cepheid 4 Plex was negative. Drug screen was negative. Chest x-ray demonstrated no acute process CT head demonstrated moderate atrophy with microvascular ischemic changes. It was felt that her sepsis was likely secondary to her right lower extremity ulcer. She was started on ceftriaxone and vancomycin. Infectious disease was consulted and she was st arted on normal saline. She became hypotensive overnight and received 1 additional unit of fluid. She again became hypotensive on the morning of 07/13 necessitating norepinephrine. Her blood cultures came back positive for group B strep bacteremia. She was able to be weaned off pressors on 07/14. She continued to improve. However, now having worsening cellulitis, and having fevers again. Antibiotics broadened. ID following. Vascular surgery following, not recommending any further debridement. Nuclear medicine bone scan completed and report reviewed showing no skin to graphic evidence for osteomyelitis showing cellulitis changes of right lower extremity. Physical exam: Patient seen and fully evaluated at the bedside. Patient seen and fully ev aluated at bedside. Family also visiting at bedside. Patient currently reports pain in right leg is controlled and denies having any needs or new complaints at this time. Patient and family updated on plan of care and patient encouraged to get up to chair with meals today. Vital signs reviewed and stable. General: Nontoxic, no distress and appears stated age. Derm: Skin warm and dry, normal coloration for ethnicity. Head: Atraumatic, normocephalic and symmetric. Eyes: EOMs intact, no lid lag, and anicteric sclera Mouth: no lip lesions, mucus membranes moist Cardiovascular: regular rate and rhythm with normal S1S2, systolic murmur, positive posterior tibial pulses bilaterally, and cap refill < 2 seconds. Lungs: Respirations even, regular, and unlabored on room air. Lungs CTA brayden aterally, no rhonchi, no rales, no wheezing, and no accessory muscle usage. Abdominal: soft, nontender to palpation, no guarding, no appreciable organomegaly Ext: ROM intact. No gross muscle atrophy, 1-2+ pitting lower extremity edema, no contractures, venous stasis dermatitis to bilateral lower extremities. Large ulcer right lower hernandez, showing new pink skin growth. Kerlix dressing changed at this time. Neuro: Speech clear, face symmetrical and CN II-XII grossly intact with no noted focal neuro deficits. Psych: Alert and oriented to person, place, time, and situation. Appropriate and pleasant affect. Assessment and Plan of Care: Polymicrobial Infected right lower extremity ulcer, now with surrounding cellulitis Bacteremia, group B strep Enlarged lymph nodes right groin, likely secondary to right lower extremity cellulitis resulting from infected ulcer Septic shock, secondary to above. Resolved Toxic metabolic encephalopathy, secondary to above. Resolved -Wound culture results positive for beta-hemolytic strep group G, Enterobacter cloacae, and Staphylococcus aureus. -Blood cultures positive for beta-hemolytic strep group G. Repeat cultures showing no growth to date. -Right lower extremity Doppler was negative for DVT but did reveal multiple enlarged lymph nodes within the right groin and generalized subcutaneous soft tissue swelling. -Nuclear medicine bone scan completed and report reviewed showing no skin to graphic evidence for osteomyelitis showing cellulitis changes of right lower extremity. -Elevating alkaline phos likely elevating secondary to PCN derivative, Zosyn -Blood pressures remain soft, continue to hold all home blood pressure medications at this time -Continue IV antibiotics with Zosyn 3.375 g every 8 hours -Infectious disease following, reviewed documentation in chart -Vascular surgery evaluated, clearing patient from their perspective stating right lower extremity ulcer does not require additional debridement at this time. -Wound care recommendations: Santyl, moist gauze, then dry gauze and roll with gauze. Return to wound care center July 23 at 12:45 PM -PT and OT consulted for evaluation, recommending inpatient rehab Acute on chronic anemia Bicytopenia with anemia and thrombocytopenia. Iron deficiency anemia -Status posttransfusion of 1 unit PRBCs hemoglobin stable at 7.9 this morning. -Continue ferrous sulfate 325 mg daily along with ascorbic acid 1000 mg daily. -Continue to monitor with repeat morning CBC, will transfuse as needed for hemoglobin less than 7 and/or platelet count less than 25. Acute kidney injury on chronic kidney disease stage III, resolved -Continue to hold fosinopril/hydrochlorothiazide and Lasix. Akz-[id number]-[id number] diabetes mellitus type 2 -Blood glucose levels stable ranging from 86-225 over the past 24 hours. -Continue to hold metformin. -Continue glycemic protocol with NovoLog sliding scale to maintain tight glycemic control throughout hospitalization. -Hemoglobin A1c 5.4%. Imaging reviewed: -No new imaging for review. Data Reviewed: -Morning labs completed and reviewed. CBC showing stable normocytic anemia with hemoglobin of 7.9. BMP unremarkable. Magnesium slightly low at 1.7 and orders placed for replacement 2 g magnesium sulfate IVPB. Liver profile showing slightly worsening alkaline phosphatase of 335. -Vital signs reviewed and stable. Blood pressure 108/69, heart rate 91, respiratory rate 18, temp 98.9 F, SpO2 of 95% room air. CODE STATUS: DNR/DNI DVT prophylaxis: Eliquis Anticipated discharge date: Pending Clinical Course Anticipated discharge place: Patient will likely need subacute rehab on discharge, consult placed for inpatient rehab Patient was seen independently by Nurse Pracitioner. This document was prepared using [employer] dictation software. Please allow for errors in director call, while rare they do occur. This patient was seen independently by my colleague Vladimir HODGES. I agree with the assessment and plan. Objective - Vital Signs Vital signs: Vital Signs Temp 98.7 F 07/20/23 01:55 Pulse 62 07/20/23 01:55 Resp 19 07/20/23 01:55 BP 119/68 07/20/23 01:55 Pulse Ox 96 07/20/23 01:55 FiO2 Intake & Output 07/19/23 07/20/23 07/20/23 18:59 06:59 18:59 Intake Total 310 Output Total 300 750 Balance 10 -750 Weight 94.5 kg Intake: Blood Product 310 Rc As-1 Unit 310 [id number] Output: Urine 300 750 Other: Voiding Method External Catheter External Catheter # Bowel Movements 1 - Labs CBC & Chem 7: 07/21/23 06:58 07/21/23 06:58 Labs: Abnormal Lab Results - Last 24 Hours (Table) 07/19/23 07/19/23 07/19/23 Range/Units 06:12 06:12 10:53 RBC 2.41 L (4.10-5.20) X 10*6/uL Hgb 6.9 A* (12.0-15.0) g/dL Hct 21.6 L (37.2-46.3) % MCHC 31.9 L (32.0-37.0) g/dL Plt Count 117 L (140-440) X 10*3/uL BUN 29.0 H (9.0-27.0) mg/dL Est GFR (CKD-EPI) 40 L (>=60) BUN/Creatinine Ratio 22.31 H (12.00-20.00) Ratio POC Glucose (mg/dL) (70-110) mg/dL Calcium 8.3 L (8.7-10.3) mg/dL Alkaline Phosphatase 324 H (41-126) U/L Total Protein 5.1 L (6.2-8.2) g/dL Albumin 2.9 L (3.8-4.9) g/dL Albumin/Globulin Ratio 1.32 L (1.60-3.17) Ratio Crossmatch See Detail 07/19/23 07/19/23 07/19/23 Range/Units 11:51 16:50 20:28 RBC (4.10-5.20) X 10*6/uL Hgb (12.0-15.0) g/dL Hct (37.2-46.3) % MCHC (32.0-37.0) g/dL Plt Count (140-440) X 10*3/uL BUN (9.0-27.0) mg/dL Est GFR (CKD-EPI) (>=60) BUN/Creatinine Ratio (12.00-20.00) Ratio POC Glucose (mg/dL) 113 H 114 H 225 H (70-110) mg/dL Calcium (8.7-10.3) mg/dL Alkaline Phosphatase (41-126) U/L Total Protein (6.2-8.2) g/dL Albumin (3.8-4.9) g/dL Albumin/Globulin Ratio (1.60-3.17) Ratio Crossmatch 07/20/23 Range/Units 06:02 RBC (4.10-5.20) X 10*6/uL Hgb (12.0-15.0) g/dL Hct (37.2-46.3) % MCHC (32.0-37.0) g/dL Plt Count (140-440) X 10*3/uL BUN (9.0-27.0) mg/dL Est GFR (CKD-EPI) (>=60) BUN/Creatinine Ratio (12.00-20.00) Ratio POC Glucose (mg/dL) 117 H (70-110) mg/dL Calcium (8.7-10.3) mg/dL Alkaline Phosphatase (41-126) U/L Total Protein (6.2-8.2) g/dL Albumin (3.8-4.9) g/dL Albumin/Globulin Ratio (1.60-3.17) Ratio Crossmatch Microbiology - Last 24 Hours (Table) 07/14/23 08:22 Blood Culture - Final Blood
[2023-07-20] MEDS: MAGNESIUM SULFATE-D5W PMX 1 GM in DEXTROSE/WATER 1 100ML.BAG IVPB SCH (14:57)
[2023-07-20 17:04] LABS: Glucose,Whole Blood 136 mg/dL (70-110)
[2023-07-20 21:34] LABS: Glucose,Whole Blood 162 mg/dL (70-110)
[2023-07-21 05:57] LABS: Glucose,Whole Blood 103 mg/dL (70-110)
--- NOTE | 2023-07-21 11:28 | P.PN ---
Subjective Progress Note Date: 07/21/23 This is an 88-year-old female with history of multiple medical problems including chronic right lower extremity nonhealing ulcer, chronic atrial fibrillation, chronic anemia, dementia, dyslipidemia, history of aortic valve stenosis and previous TAVR, type 2 diabetes, essential hypertension, mild obstructive lung disease and restrictive lung disease, brought into the emergency room yesterday mostly with concern of family members about her confusion and low-grade fever. Patient developed chills and mental status change, patient had no symptoms of cough, no shortness of breath, no headache, no neck pain, no nausea, no abdominal pain, no melena, no hematemesis. Patient does have history of chronic right lower extremity ulcer, and has required antibiotics in the past for this ulcer, continues to follow-up usually with the wound care center for her ulcer. In the ER, patient had a relatively normal CT of the brain, chest x-ray was also unremarkable, patient was noted to be hypotensive, and she received fluid boluses, did not require any epinephrine initially, but today after I saw the patient and she was getting fluids at 150 cc/h, patient developed hypotension requiring norepinephrine, and I felt that the patient has sepsis and possibly septic shock. And the patient is receiving antibiotic in the form of vancomycin and Rocephin. Blood cultures are pending. WBC count is 13.8 hemoglobin is 8.4. Basic metabolic profile is normal creatinine went up from 1.32 up to 1.40 in less than 24 hours. Patient had negative drug screen, negative influenza a influenza B RSV and COVID-19 screeni ng. Analysis was noted to be unremarkable. Lactic acid on admission was 1.1 hemoglobin this morning was 8.4, her hemoglobin on admission was 10.5, reminded patient received few liters of fluid since admission Patient was reevaluated today on 07/14/23, patient remains in the ICU, still requiring norepinephrine at 0.05 mcg/kg/min. Blood cultures on this patient came back positive for beta-hemolytic strep group G, her wound cultures came back positive for beta-hemolytic strep and gram-negative bacilli. Her antibiotics were transitioned to Unasyn, clinically the patient is feeling better, she is more awake today, her blood pressure seems to be stabilizing, and she is on a very minimal dose of norepinephrine which would likely be discontinued in the next few hours norepinephrine is being titrated down. WBC count today is 16 hemoglobin 8.1 basic metabolic profile is normal renal profile is improving creatinine is down to 1.30 from 1.40 yesterday. Reevaluated today on 07/15/2023, patient remains in the ICU, patient is doing well, not in any distress, she is actually on room air, she is off norepinephrine, she had good urine output, remains on antibiotics for her bacteremia and septic shock presentation, hemodynamically stable. WBC count is 8.1 hemoglobin 7.5 basic metabolic profile is normal renal profile is improving creatinine down to 1.22, patient remains on Unasyn The patient is seen today July 16, 2023 in follow-up on the regular medical floor. She was transferred out of the ICU yesterday. She remains awake and alert in no acute distress. Maintaining good O2 saturations in the 90s on room air. She is continued on Unasyn and Cipro for right lower extremity cellulitis. Doppler negative for DVT. Wound culture was positive for beta-hemolytic strep group G, Enterobacter [place], methicillin sensitive staphylococcus aureus. White count 7.6. Hemoglobin 7.8. Platelets 82,000. Sodium 132. Potassium 4.0. Bicarb 21. BUN 42. Creatinine 1.08. Glucose 106 The patient is seen today July 17, 2023 in follow-up on the regular medical floor. She is currently sitting up in bed. Awake and alert in no acute distress. Family is at the bedside. She denies any worsening shortness of breath, cough or congestion. She is maintaining good O2 saturations in the 90s on room air. She is afebrile. Hemodynamically stable. No plans for surgical debridement of the right lower extremity wound. Cellulitis is unchanged. Bone scan is pending. She remains on antibiotics in the form of Zosyn. Anticoagulated with Eliquis. Follow-up blood cultures revealing no growth. White count 6.5. Hemoglobin 7.6. Platelets 94,000. Sodium 136. Potassium 4.0. Bicarb 25. BUN 32. Creatinine 1.2. C-reactive protein 12.5. The patient is seen today July 18, 2023 and follow-up on the regular medical floor. She awake and alert in no acute distress. Resting comfortably in bed. Denies any worsening shortness of breath, cough or congestion. Maintaining good O2 saturations in the 90s on room air. She has been afebrile. Hemodynamically stable. Bone scan revealed no evidence of osteomyelitis of the right lower extremity. There is noted cellulitis. There is degenerative uptake in the left knee and left midfoot. Follow-up blood cultures revealed no growth. White count 6.7. Hemoglobin 7.6. Platelets 94,000. Sodium 134. Potassium 3.8. Bicarb 23. BUN 32. Creatinine 1.20. Glucose 108. She remains on antibiotics in the form of Zosyn. The patient is seen today July 19, 2023 in follow-up on the regular medical floor. She is resting comfortably in bed. She is awake and alert in no acute distress. Maintaining good O2 saturations in the 90s on room air. Right leg cellulitis and wound culture positive for beta-hemolytic strep group G, Enterobacter [place], Staphylococcus aureus. Follow-up blood cultures revealed no growth. White count 5.9. Hemoglobin 6.9. Platelets 117. Sodium 135. Potassium 4.0. Bicarb 22. BUN 29. Creatinine 1.3. Glucose 109. 1 unit of packed red blood cells have been ordered. She remains on antibiotics in the form of Zosyn. Anticoagulated with Eliquis. The patient is seen today July 20, 2023 in follow-up on the regular medical floor. She is currently sitting up in bed. Awake and alert in no acute distress. Maintaining good O2 saturations in the 90s on room air. She is still having some right lower extremity discomfort where her cellulitis is. She is status post 1 unit of packed red blood cells this admission. Current hemoglobin 7.9. Platelets 151. White count 5.8. Sodium 136. Potassium 4.1. Bicarb 23. BUN 24. Creatinine 1.1. Glucose 86. She is continued on antibiotics in the form of Zosyn. Anticoagulated with Eliquis. Follow-up blood cultures revealed no growth. The patient is seen today July 21, 2023 in follow-up on the regular medical floor. She remains awake and alert in no acute distress. Sitting up in bed. No worsening shortness of breath, cough or congestion. Right lower extremity feeling somewhat better. No worsening cellulitis. She remains on antibiotics in the form of Zosyn. ID is following. Anticoagulated with Eliquis. Follow-up blood cultures revealed no growth. Glucose 103. Objective - Vital Signs Vital signs: Vital Signs Temp 98.0 F 07/21/23 07:23 Pulse 92 07/21/23 07:23 Resp 17 07/21/23 07:23 BP 133/76 07/21/23 07:23 Pulse Ox 97 07/21/23 07:23 FiO2 Intake & Output 07/20/23 07/21/23 07/21/23 18:59 06:59 18:59 Intake Total 100 Output Total 250 700 Balance -150 -700 Weight 95 kg Intake: Intake, IV Titration 100 Amount Piperacillin-Tazobactam 3 100 .375 gm In Sodium Chloride 0.9% 100 ml @ 25 mls/hr IVPB Q8HR [facility] Rx# :[id number] Output: Urine 250 700 Other: # Voids 1 # Bowel Movements 1 - Exam General: Awake, 88-year-old female. Resting in bed. On room air. Skin: Skin is warm and dry chronic large nonhealing ulcer noted on the distal aspect of the right lower extremity above the ankle. Eye: Pupils are equal, round and reactive to light, extra-ocular movements are intact; there is normal conjunctiva bilaterally. Ears, nose, mouth and throat: There are moist mucous membranes and no oral lesions. Neck: The neck is supple, there is no tenderness or JVD. Cardiovascular: Irregular irregular rhythm, 2/6 systolic murmur throughout the precordium.. Respiratory: Clear bilaterally no rhonchi no wheezes. Gastrointestinal: Soft, non-distended, non-tender abdomen without masses or organomegaly noted. Bowel sounds are unremarkable. Musculoskeletal: Normal ROM, no tenderness. Extremities: No clubbing, no cyanosis, patient has a chronic nonhealing ulcer noted in the right lower extremity just above the right ankle. Significant cellulitis of the right lower extremity Neurological: Alert oriented x 3 no gross focal deficit. Psychiatric: Normal mood and affect and normal mental status examination. - Labs CBC & Chem 7: 07/20/23 05:45 07/20/23 05:45 Labs: Abnormal Lab Results - Last 24 Hours (Table) 07/20/23 07/20/23 07/20/23 Range/Units 11:57 17:02 21:33 POC Glucose (mg/dL) 119 H 136 H 162 H (70-110) mg/dL Microbiology - Last 24 Hours (Table) 07/15/23 05:28 Blood Culture - Final Blood Assessment and Plan Assessment: Hypotension, secondary to septic shock and beta-hemolytic strep group G bacteremia with right lower extremity cellulitis. Recovered and off pressors. Follow-up blood cultures revealed no growth Chronic infected right lower extremity ulcer is the most likely source of her infection and sepsis. Cultures positive for beta-hemolytic strep group G, Enterobacter cloacae, methicillin sensitive Staphylococcus aureus. Bone scan revealed no evidence of osteomyelitis. She remains on Zosyn Chronic anemia and today's hemoglobin 7.9, has received 1 unit of packed red blood cells this admission Type 2 diabetes with diabetic nephropathy Acute on chronic kidney injury most likely secondary to sepsis/acute tubular necrosis Toxic metabolic encephalopathy History of underlying dementia History of chronic anemia History of benign positional vertigo History of underlying COPD mild to moderate History of closed fracture of neck of right femur History of aortic stenosis and previous TAVR History of GERD Benign essential hypertension Dyslipidemia Insomnia Chronic fatigue Chronic atrial fibrillation Plan: The patient was seen and evaluated Medications reviewed Plan is for 7 to 10 days of Zosyn Plan is for subacute versus inpatient rehab postdischarge I have personally seen and examined the patient, performed the documentation and the assessment and plan as written. Number of minutes spent on the visit: 10.
--- NOTE | 2023-07-21 11:42 | P.CONS ---
History of Present Illness - Reason for Consult Consult date: 07/20/23 rehab recommendations - Chief Complaint Sepsis, debility - History of Present Illness Ms Mary Miranda is an 88 y/o right handed single female who lives with her sister in a duplex with 3 MACARENA with a threshold step into home or can use a ramp. She ambulates without an assistive device at times, but does have a standard walker, 4ww, wheelchair, and shower chair. She is able to dress herself but has stable helper for showering. Her sister is unable to physically help her. Her sister does grocery diamond picker. She does have family local that is helpful. Patient presented to the hospital on 07/12/23 with acute confusion, chills, with a chronic lower extremity wound, follows with wound care. She has a history of chronic atrial fibrillation, chronic anemia, dementia, dyslipidemia, history of aortic valve stenosis and previous TAVR, type 2 diabetes, essential hypertension, mild obstructive lung disease and restrictive lung disease, brought into the emergency room yesterday mostly with concern of family members about her confusion and low-grade fever. In the ER, CT of the brain no acute process, chest x-ray was also unremarkable, patient was noted to be hypotensive, and she received fluid boluses. She was admitted for sepsis and possibly septic shock, started on vancomycin and Rocephin. Blood cultures were ordered. WBC count is 13.8 hemoglobin is 8.4. Basic metabolic profile is normal creatinine went up from 1.32 up to 1.40 in less than 24 hours. Patient had negative drug screen, negative influenza a influenza B RSV and COVID-19 screening. Urine Analysis was noted to be unremarkable. She was admitted to the ICU. She was followed by ID. Blood cultures on this patient came back positive for beta-hemolytic strep group G, her wound cultures came back positive for beta-hemolytic strep and gram- negative bacilli. Her antibiotics were transitioned to Unasyn. Her BP improved and she was able to be transitioned out of the ICU. Doppler negative for DVT. Wound culture was positive for beta-hemolytic strep group G, Enterobacter [place], methicillin sensitive staphylococcus aureus. No plans for surgical debridement of the right lower extremity wound. Bone scan revealed no evidence of osteomyelitis of the right lower extremity. There is noted cellulitis. There is degenerative uptake in the left knee and left midfoot. Follow-up blood cultures revealed no growth. PM&R consulted for rehab recommendations. Therapy notes mod assist with bathing, UB dressing min assist, LB dressing total assist, grooming min assist, toileting total assist, gait min assist 5 feet RW, transfers min assist 07/21/23: Patient laying in bed, daughter in law at her bedside. She states she is overall feeling better but still has quite a bit of discomfort in her right leg due to the cellulitis. She states it is no longer "hot" but is tender to touch. She admits to having a difficult time getting out of bed, which is not new as she had a hip surgery in December which has made it more difficult. She denies CP, SOB, and abdominal pain. She had a BM yesterday, using a purewick. She reports numbness and tingling in her lips and a new sore that started a couple of days ago. She reports a history of cold sores. Review of Systems reviewed, negative unless stated above in Subjective Past Medical History Past Medical History: Atrial Fibrillation, COPD, Diabetes Mellitus, Hyperlipidemia, Hypertension, Memory Impairment, Osteoarthritis (OA) Additional Past Medical History / Comment(s): possible Hiatal Hernia, left neck mass History of Any Multi-Drug Resistant Organisms: None Reported Past Surgical History: Cardiac Valve Replacement, Cholecystectomy, Orthopedic Surgery Additional Past Surgical History / Comment(s): Right knee surgery X5, Hammer Toe surgery, left knee arthroscopy Past Anesthesia/Blood Transfusion Reactions: Previous Problems w/ Anesthesia Additional Past Anesthesia/Blood Transfusion Reaction / Comm: Woke up during last knee surgery. Smoking Status: Current some day smoker - Past Family History Father Family Medical History: Cancer Additional Family Medical History / Comment(s): Prostate Cancer. Brother(s) Additional Family Medical History / Comment(s): Blood clot from surgery. Medications and Allergies Home Medications Medication Instructions Recorded Confirmed Type Apixaban [Eliquis] 2.5 mg PO BID 10/10/18 07/12/23 History Ascorbic Acid [Vitamin C] 1,000 mg PO DAILY 10/10/18 07/12/23 History Atorvastatin [Lipitor] 40 mg PO Q48H 10/10/18 07/12/23 History Cholecalciferol [Vitamin D3 (25 25 mcg PO DAILY 10/10/18 07/12/23 History Mcg = 1000 Iu)] Latanoprost/Pf [Latanoprost 0.005% 1 drop RIGHT EYE HS 10/10/18 07/12/23 History Eye Drop] Multivitamins, Thera [Multivitamin 1 tab PO DAILY 10/10/18 07/12/23 History (formulary)] metFORMIN HCL [metFORMIN HCL ER] 750 mg PO BID 10/10/18 07/12/23 History Diphenoxylate HCl/Atropine 1 - 2 tab PO QID PRN 01/17/20 07/12/23 History [Lomotil 2.5-0.025 mg Tablet] Ferrous Sulfate [Iron] 325 mg PO Q48H 01/17/20 07/12/23 History Furosemide [Lasix] 20 mg PO DAILY PRN 01/17/20 07/12/23 History Donepezil [Aricept] 10 mg PO DAILY 12/27/20 07/12/23 History Calcium 1000mg 1 tab PO DAILY 01/23/23 07/12/23 History Co Q-10 100mg 1 tab PO DAILY 01/23/23 07/12/23 History Super Beets Heart Chews 2 tab PO W/LUNCH 01/23/23 07/12/23 History Zinc Gluconate [Zinc] 50 mg PO DAILY 01/23/23 07/12/23 History Acetaminophen Tab [Tylenol] 650 mg PO Q6HR PRN tab 01/28/23 07/12/23 Rx Fosinopril/Hydrochlorothiazide 1 tab PO DAILY 07/12/23 07/12/23 History [Monopril HCT 10-12.5 mg Tab] Gabapentin 300 mg PO TID 07/12/23 07/12/23 History Metoprolol Tartrate [Lopressor] 50 mg PO DAILY 07/12/23 07/12/23 History Zolpidem [Ambien] 5 mg PO HS PRN 07/12/23 07/12/23 History traMADol HCL 50 mg PO BID 07/12/23 07/12/23 History Allergies Allergy/AdvReac Type Severity Reaction Status Date / Time Paper Tape Allergy Redness/Itc Uncoded 07/12/23 21:52 erick Physical Exam Vitals: Vital Signs Temp Pulse Pulse Resp BP BP BP 07/20/23 14:13 98.3 F 82 17 133/67 07/20/23 07:46 98.9 F 91 18 108/69 07/20/23 01:55 98.7 F 62 19 119/68 07/19/23 19:09 98.3 F 94 20 117/61 07/19/23 17:48 98.9 F 82 15 112/66 Pulse Ox 07/20/23 14:13 100 07/20/23 07:46 95 07/20/23 01:55 96 07/19/23 19:09 97 07/19/23 17:48 Intake and Output 07/20/23 07/20/23 07/20/23 06:59 14:59 22:59 Intake Total 100 Output Total 750 Balance -750 100 Intake: Intake, IV Titration 100 Amount Piperacillin-Tazobactam 3 100 .375 gm In Sodium Chloride 0.9% 100 ml @ 25 mls/hr IVPB Q8HR [facility] Rx# :[id number] Output: Urine 750 Other: # Voids 1 # Bowel Movements 1 1 Weight 94.5 kg General: WDWN obese elderly female, laying in bed with HOB elevated, daughter in law at bedside, she is alert, NAD HEENT: head normocephalic, atraumatic; moist mucous membranes, external ears intact with hearing intact to conversational speech, patient noted to have small eruption along right lip border with erythema surrounding CV: no acute cardiac distress Lungs: even and non labored respirations on RA Abdomen: soft, NT, ND MSK: full ROM bilateral UE, left LE, patient declines movement of right leg due to pain from cellulitis MMT: B/L HG and EF 4+/5, B/L EE and SABD 4/5; L HF and KE 4-/5, R HF and KE 2/5 poor effort, DF 3/5 Neuro: Patient is awake, alert, oriented x 4. Speech is clear and fluent Sensation intact to light touch bilateral UE and LEs Psych: mood calm, affect appropriate Extremities: calves supple, right slightly tender,+ LE edema Skin: intact where exposed except chronic LE changes to bilateral legs, right leg with kerlix wrap distally, erythema medially up to thigh, small eruption along right lip border with erythema surrounding Results CBC & Chem 7: 07/20/23 05:45 07/20/23 05:45 Labs: Abnormal Lab Results - Last 24 Hours (Table) 07/19/23 07/19/23 07/20/23 Range/Units 10:53 20:28 05:45 RBC 2.78 L (4.10-5.20) X 10*6/uL Hgb 7.9 L (12.0-15.0) g/dL Hct 24.5 L (37.2-46.3) % Est GFR (CKD-EPI) (>=60) BUN/Creatinine Ratio (12.00-20.00) Ratio POC Glucose (mg/dL) 225 H (70-110) mg/dL Calcium (8.7-10.3) mg/dL Alkaline Phosphatase (41-126) U/L Total Protein (6.2-8.2) g/dL Albumin (3.8-4.9) g/dL Albumin/Globulin Ratio (1.60-3.17) Ratio Crossmatch See Detail 07/20/23 07/20/23 07/20/23 Range/Units 05:45 06:02 11:57 RBC (4.10-5.20) X 10*6/uL Hgb (12.0-15.0) g/dL Hct (37.2-46.3) % Est GFR (CKD-EPI) 49 L (>=60) BUN/Creatinine Ratio 21.36 H (12.00-20.00) Ratio POC Glucose (mg/dL) 117 H 119 H (70-110) mg/dL Calcium 8.4 L (8.7-10.3) mg/dL Alkaline Phosphatase 335 H (41-126) U/L Total Protein 5.4 L (6.2-8.2) g/dL Albumin 3.0 L (3.8-4.9) g/dL Albumin/Globulin Ratio 1.25 L (1.60-3.17) Ratio Crossmatch 07/20/23 Range/Units 17:02 RBC (4.10-5.20) X 10*6/uL Hgb (12.0-15.0) g/dL Hct (37.2-46.3) % Est GFR (CKD-EPI) (>=60) BUN/Creatinine Ratio (12.00-20.00) Ratio POC Glucose (mg/dL) 136 H (70-110) mg/dL Calcium (8.7-10.3) mg/dL Alkaline Phosphatase (41-126) U/L Total Protein (6.2-8.2) g/dL Albumin (3.8-4.9) g/dL Albumin/Globulin Ratio (1.60-3.17) Ratio Crossmatch Microbiology - Last 24 Hours (Table) 07/15/23 05:28 Blood Culture - Final Blood 07/14/23 08:22 Blood Culture - Final Blood Assessment and Plan Assessment: # Sepsis secondary to Bacteremia, beta-hemolytic strep group G -ID following, planning for another 7-10 days of abx -PT/OT/PROGRAM DIR #septic shock and beta-hemolytic strep group G bacteremia with right lower extremity cellulitis, beta-hemolytic strep group G, Enterobacter cloacae, methicillin sensitive Staphylococcus aureus. # Suspected Herpes Simplex -07/21/23 patient with herpes appearing eruption on her right lip border, reports tingling and numbness of the lips as well, defer to medical for antiviral treatment #Chronic anemia and today's hemoglobin 7.9, has received 1 unit of packed red blood cells this admission #Acute on chronic kidney injury most likely secondary to sepsis/acute tubular necrosis # Acute hypotension secondary to septic shock, resolved #Toxic metabolic encephalopathy, improved # AMS # Chronic lower extremity wound -right leg doppler negative for DVT # Afib -medication per JUL # Dementia # Comorbidities: COPD, DM, HLD, OA, cardiac valve replacement, cholecystectomy, Right knee surgery x 5, left knee arthroscopy, Hypotension, Type 2 diabetes with diabetic nephropathy, History of benign positional vertigo, History of GERD, Benign essential hypertension, Insomnia, Chronic fatigue Disposition: Recommending IPR for continued therapy, motivated, has good family support. She will need insurance authorization, family and case management aware. Patient seen and examined in collaboration with Dr Pace. Thank you for consulting our services.
[2023-07-21 12:08] LABS: Glucose,Whole Blood 176 mg/dL (70-110)
[2023-07-21 12:55] LABS: HCT 24.7 % (37.2-46.3); HGB 7.8 g/dL (12.0-15.0); MCH 27.7 pg (27.0-32.0); MCHC 31.6 g/dL (32.0-37.0); MCV 87.6 FL (80.0-97.0); NRBC Per 100 WBC 0 X 10*3/uL (0.00-0.01); Platelet Count 156 X 10*3/uL (140-440); RBC 2.82 X 10*6/uL (4.10-5.20); RDW 14.2 % (11.5-14.5); WBC 5.31 X 10*3/uL (4.50-10.00)
[2023-07-21 13:15] LABS: ALT 17 U/L (8-44); AST 18 U/L (13-35); Albumin 2.9 g/dL (3.8-4.9); Albumin/Globulin Ratio 1.12 Ratio (1.60-3.17); Alkaline Phosphatase 318 U/L (41-126); BUN/Creat Ratio 17.18 Ratio (12.00-20.00); Blood Urea Nitrogen 18.9 mg/dL (9.0-27.0); Calcium 8.7 mg/dL (8.7-10.3); Carbon Dioxide 23.9 mmol/L (21.6-31.8); Chloride 104 mmol/L (96-109); Globulin 2.6 g/dL (1.6-3.3); Glucose 88 mg/dL (70-110); Sodium 137 mmol/L (135-145); Total Bilirubin 0.5 mg/dL (0.3-1.2); Total Protein 5.5 g/dL (6.2-8.2)
--- NOTE | 2023-07-21 13:29 | P.PN ---
Subjective Progress Note Date: 07/21/23 Principal diagnosis: Reason for follow-up is sepsis right leg wound and cellulitis Patient is a 88-year-old female with a past medical history significant for diabetes mellitus hypertension hyperlipidemia COPD atrial fibrillation patient also have a chronic nonhealing wound to the right lower extremity and presented to the hospital with fever confusion patient was noted to be septic possibly to the right lower extremity wound infection and cellulitis. On today's evaluation that is 07/21/2023, the patient continues to be afebrile, the patient is on room air and breathing comfortably, The patient denies having any chest pain or cough, the patient denies having any abdominal pain no vomiting or any diarrhea has been reported by the nursing staff patient with a s welling to the right lower extremity slightly decreased in intensity Patient did have white count of 5.31, creatinine 1.1 Objective - Vital Signs Vital signs: Vital Signs Temp 98.0 F 07/21/23 07:23 Pulse 92 07/21/23 07:23 Resp 17 07/21/23 07:23 BP 133/76 07/21/23 07:23 Pulse Ox 97 07/21/23 07:23 FiO2 Intake & Output 07/20/23 07/21/23 07/21/23 18:59 06:59 18:59 Intake Total 100 Output Total 250 700 Balance -150 -700 Weight 95 kg Intake: Intake, IV Titration 100 Amount Piperacillin-Tazobactam 3 100 .375 gm In Sodium Chloride 0.9% 100 ml @ 25 mls/hr IVPB Q8HR [facility] Rx# :[id number] Output: Urine 250 700 Other: # Voids 1 # Bowel Movements 1 - Exam GENERAL DESCRIPTION: An elderly female lying in bed in no distress RESPIRATORY SYSTEM: Unlabored breathing , decreased breath sounds at bases HEART: S1 S2 regular rate and rhythm , ABDOMEN: Soft , no tenderness EXTREMITIES: Right leg wound is currently dressed right lower extremity redness slightly decreased in intensity - Labs CBC & Chem 7: 07/21/23 06:58 07/21/23 06:58 Labs: Abnormal Lab Results - Last 24 Hours (Table) 07/20/23 07/20/23 07/20/23 Range/Units 11:57 17:02 21:33 POC Glucose (mg/dL) 119 H 136 H 162 H (70-110) mg/dL Microbiology - Last 24 Hours (Table) 07/15/23 05:28 Blood Culture - Final Blood Assessment and Plan (1) Cellulitis of right leg Current Visit: Yes Status: Acute Code(s): L03.115 - CELLULITIS OF RIGHT LOWER LIMB SNOMED Code(s): 19320687017918688 (2) Leukocytosis Current Visit: Yes Status: Acute Code(s): D72.829 - ELEVATED WHITE BLOOD CELL COUNT, UNSPECIFIED SNOMED Code(s): 761846381 (3) Bacteremia Current Visit: Yes Status: Acute Code(s): R78.81 - BACTEREMIA SNOMED Code(s): 9477035 (4) Chronic wound of extremity Current Visit: Yes Status: Acute Code(s): NLH3587 - SNOMED Code(s): 02284442564482 Plan: 1patient presented to the hospital with sepsis in this patient who did have a fever tachycardia elevated white count source likely right lower extremity wound with secondary cellulitis as currently no other obvious focus of infection patient did not have respiratory symptoms lungs are clear to auscultation chest x-ray was negative abdominal soft urine is negative, we will likely need to cover for the gram-positive skin rodney to be the likely pathogen 2patient did have group G strep bacteremia source likely right lower extremity wound and cellulitis 3blood cultures has been repeated and so far negative 4local culture growing group B strep as well as Enterobacter that is resistant to Unasyn and MSSA 5patient bone scan was negative for osteomyelitis 6-patient did have multiple hardware to the right lower extremity keeping in mind her complicated course recommending a 10-day course of IV Zosyn on discharge Daughter at the bedside questions answered Dictation was produced using [employer] dictation software. please excuse any grammatical, word or spelling errors. Time with Patient: Less than 30
--- NOTE | 2023-07-21 16:40 | P.PN ---
Subjective Progress Note Date: 07/21/23 Hospital course: Patient is a 88-year-old female with diabetes mellitus type 2 with peripheral neuropathy, chronic A-fib on Eliquis, COPD, hypertension, dyslipidemia, and chronic right lower extremity nonhealing ulcer who presented to the emergency department due to confusion and fever. On arrival to the ER here vital signs were remarkable for temperature of 102.3 and a pulse of 140. Laboratory analysis was remarkable for white blood cell count 13.7, hemoglobin 10.5, platelets 127, creatinine 1.32. Cepheid 4 Plex was negative. Drug screen was negative. Chest x-ray demonstrated no acute process CT head demonstrated moderate atrophy with microvascular ischemic changes. It was felt that her sepsis was likely secondary to her right lower extremity ulcer. She was started on ceftriaxone and vancomycin. Infectious disease was consulted and she was st arted on normal saline. She became hypotensive overnight and received 1 additional unit of fluid. She again became hypotensive on the morning of 07/13 necessitating norepinephrine. Her blood cultures came back positive for group B strep bacteremia. She was able to be weaned off pressors on 07/14. She continued to improve. However, now having worsening cellulitis, and having fevers again. Antibiotics broadened. ID following. Vascular surgery following, not recommending any further debridement. Nuclear medicine bone scan completed and report reviewed showing no skin to graphic evidence for osteomyelitis showing cellulitis changes of right lower extremity. Physical exam: Patient seen and fully evaluated at the bedside. Patient seen and fully ev aluated at bedside. Patient's daughter at bedside visiting. Patient currently reports pain in right leg is controlled and denies having any needs or new complaints, concerns, or needs at this time. Vital signs reviewed and stable. General: Nontoxic, no distress and appears stated age. Derm: Skin warm and dry, normal coloration for ethnicity. Head: Atraumatic, normocephalic and symmetric. Eyes: EOMs intact, no lid lag, and anicteric sclera Mouth: no lip lesions, mucus membranes moist Cardiovascular: regular rate and rhythm with normal S1S2, systolic murmur, positive posterior tibial pulses bilaterally, and cap refill < 2 seconds. Lungs: Respirations even, regular, and unlabored on room air. Lungs CTA bilaterally, no rhonchi, no rales, no wheezing, and no accessory muscle usage. Abdominal: soft, nontender to palpation, no guarding, no appreciable organomegaly Ext: ROM intact. No gross muscle atrophy, 1+ pitting lower extremity edema, no contractures, venous stasis dermatitis to bilateral lower extremities. Large ulcer right lower hernandez, showing new pink skin growth. Kerlix dressing clean, dry, and intact. Neuro: Speech clear, face symmetrical and CN II-XII grossly intact with no noted focal neuro deficits. Psych: Alert and oriented to person, place, time, and situation. Appropriate and pleasant affect. Assessment and Plan of Care: Polymicrobial Infected right lower extremity ulcer, now with surrounding cellulitis Bacteremia, group B strep Enlarged lymph nodes right groin, likely secondary to right lower extremity cellulitis resulting from infected ulcer Septic shock, secondary to above. Resolved Toxic metabolic encephalopathy, secondary to above. Resolved -Wound culture results positive for beta-hemolytic strep group G, Enterobacter cloacae, and Staphylococcus aureus. -Blood cultures positive for beta-hemolytic strep group G. Repeat cultures showing no growth to date. -Right lower extremity Doppler was negative for DVT but did reveal multiple enlarged lymph nodes within the right groin and generalized subcutaneous soft tissue swelling. -Nuclear medicine bone scan completed and report reviewed showing no skin to graphic evidence for osteomyelitis showing cellulitis changes of right lower extremity. -Elevating alkaline phos likely elevating secondary to PCN derivative, Zosyn -Blood pressures remain soft, continue to hold all home blood pressure medications at this time. -Continue IV antibiotics with Zosyn 3.375 g every 8 hours. -Infectious disease following, reviewed documentation in chart -Vascular surgery evaluated, clearing patient from their perspective stating right lower extremity ulcer does not require additional debridement at this time. -Wound care recommendations: Santyl, moist gauze, then dry gauze and roll with gauze. Return to wound care center July 23 at 12:45 PM -PT and OT consulted for evaluation, recommending inpatient rehab Acute on chronic anemia Bicytopenia with anemia and thrombocytopenia. Iron deficiency anemia -Status posttransfusion of 1 unit PRBCs hemoglobin stable at 7.9 this morning. -Continue ferrous sulfate 325 mg daily along with ascorbic acid 1000 mg daily. -Continue to monitor with repeat morning CBC, will transfuse as needed for hemoglobin less than 7 and/or platelet count less than 25. Acute kidney injury on chronic kidney disease stage III, resolved -Continue to hold fosinopril/hydrochlorothiazide and Lasix. [id number] diabetes mellitus type 2 -Blood glucose levels stable ranging from 103-225 over the past 24 hours. -Continue to hold metformin. -Continue glycemic protocol with NovoLog sliding scale to maintain tight glycemic control throughout hospitalization. -Hemoglobin A1c 5.4%. Data Reviewed: -Morning labs completed and reviewed. CBC showing stable normocytic anemia with hemoglobin of 7.8. BMP unremarkable. Magnesium normal findings at 2.0. Liver profile showing slightly worsening alkaline phosphatase of 318. -Vital signs reviewed and stable. Blood pressure 133/76, heart rate 92, respiratory rate 17, temp 98.0 F, and SpO2 of 97% on room air. CODE STATUS: DNR/DNI DVT prophylaxis: Eliquis Anticipated discharge date: Awaiting insurance authorization Anticipated discharge place: Patient will likely need subacute rehab on discharge, consult placed for inpatient rehab Patient was seen independently by Nurse Pracitioner. This document was prepared using [employer] dictation software. Please allow for errors in rock breaker, while rare they do occur. Slava Gilbert NP rendered care for this patient independently, reviewed the findings and plan as documented in the note above. I did not physically speak with or examine the patient on this date. Objective - Vital Signs Vital signs: Vital Signs Temp 98.4 F 07/21/23 02:00 Pulse 89 07/21/23 02:00 Resp 14 07/20/23 19:02 BP 106/61 07/21/23 02:00 Pulse Ox 97 07/21/23 02:00 FiO2 Intake & Output 07/20/23 07/21/23 07/21/23 18:59 06:59 18:59 Intake Total 100 Output Total 250 700 Balance -150 -700 Weight 95 kg Intake: Intake, IV Titration 100 Amount Piperacillin-Tazobactam 3 100 .375 gm In Sodium Chloride 0.9% 100 ml @ 25 mls/hr IVPB Q8HR [facility] Rx# :[id number] Output: Urine 250 700 Other: # Voids 1 # Bowel Movements 1 - Labs CBC & Chem 7: 07/21/23 06:58 07/21/23 06:58 Labs: Abnormal Lab Results - Last 24 Hours (Table) 07/20/23 07/20/23 07/20/23 Range/Units 05:45 05:45 11:57 RBC 2.78 L (4.10-5.20) X 10*6/uL Hgb 7.9 L (12.0-15.0) g/dL Hct 24.5 L (37.2-46.3) % Est GFR (CKD-EPI) 49 L (>=60) BUN/Creatinine Ratio 21.36 H (12.00-20.00) Ratio POC Glucose (mg/dL) 119 H (70-110) mg/dL Calcium 8.4 L (8.7-10.3) mg/dL Alkaline Phosphatase 335 H (41-126) U/L Total Protein 5.4 L (6.2-8.2) g/dL Albumin 3.0 L (3.8-4.9) g/dL Albumin/Globulin Ratio 1.25 L (1.60-3.17) Ratio 07/20/23 07/20/23 Range/Units 17:02 21:33 RBC (4.10-5.20) X 10*6/uL Hgb (12.0-15.0) g/dL Hct (37.2-46.3) % Est GFR (CKD-EPI) (>=60) BUN/Creatinine Ratio (12.00-20.00) Ratio POC Glucose (mg/dL) 136 H 162 H (70-110) mg/dL Calcium (8.7-10.3) mg/dL Alkaline Phosphatase (41-126) U/L Total Protein (6.2-8.2) g/dL Albumin (3.8-4.9) g/dL Albumin/Globulin Ratio (1.60-3.17) Ratio Microbiology - Last 24 Hours (Table) 07/15/23 05:28 Blood Culture - Final Blood
[2023-07-21 17:04] LABS: Glucose,Whole Blood 88 mg/dL (70-110)
[2023-07-21 20:23] LABS: Glucose,Whole Blood 146 mg/dL (70-110)
[2023-07-22] MEDS ORDERED: ZINC OXIDE 20% OINT 28.4 GM TUBE TOPICAL PRN (02:56)
[2023-07-22] MEDS ORDERED: ZINC OXIDE PASTE (Z-GUARD) 1 APPLIC TOPICAL PRN (03:17)
[2023-07-22 06:01] LABS: Glucose,Whole Blood 100 mg/dL (70-110)
[2023-07-22 11:36] LABS: Glucose,Whole Blood 88 mg/dL (70-110)
--- NOTE | 2023-07-22 12:07 | P.PN ---
Subjective Progress Note Date: 07/22/23 This is an 88-year-old female with history of multiple medical problems including chronic right lower extremity nonhealing ulcer, chronic atrial fibrillation, chronic anemia, dementia, dyslipidemia, history of aortic valve stenosis and previous TAVR, type 2 diabetes, essential hypertension, mild obstructive lung disease and restrictive lung disease, brought into the emergency room yesterday mostly with concern of family members about her confusion and low-grade fever. Patient developed chills and mental status change, patient had no symptoms of cough, no shortness of breath, no headache, no neck pain, no nausea, no abdominal pain, no melena, no hematemesis. Patient does have history of chronic right lower extremity ulcer, and has required antibiotics in the past for this ulcer, continues to follow-up usually with the wound care center for her ulcer. In the ER, patient had a relatively normal CT of the brain, chest x-ray was also unremarkable, patient was noted to be hypotensive, and she received fluid boluses, did not require any epinephrine initially, but today after I saw the patient and she was getting fluids at 150 cc/h, patient developed hypotension requiring norepinephrine, and I felt that the patient has sepsis and possibly septic shock. And the patient is receiving antibiotic in the form of vancomycin and Rocephin. Blood cultures are pending. WBC count is 13.8 hemoglobin is 8.4. Basic metabolic profile is normal creatinine went up from 1.32 up to 1.40 in less than 24 hours. Patient had negative drug screen, negative influenza a influenza B RSV and COVID-19 screeni ng. Analysis was noted to be unremarkable. Lactic acid on admission was 1.1 hemoglobin this morning was 8.4, her hemoglobin on admission was 10.5, reminded patient received few liters of fluid since admission Patient was reevaluated today on 07/14/23, patient remains in the ICU, still requiring norepinephrine at 0.05 mcg/kg/min. Blood cultures on this patient came back positive for beta-hemolytic strep group G, her wound cultures came back positive for beta-hemolytic strep and gram-negative bacilli. Her antibiotics were transitioned to Unasyn, clinically the patient is feeling better, she is more awake today, her blood pressure seems to be stabilizing, and she is on a very minimal dose of norepinephrine which would likely be discontinued in the next few hours norepinephrine is being titrated down. WBC count today is 16 hemoglobin 8.1 basic metabolic profile is normal renal profile is improving creatinine is down to 1.30 from 1.40 yesterday. Reevaluated today on 07/15/2023, patient remains in the ICU, patient is doing well, not in any distress, she is actually on room air, she is off norepinephrine, she had good urine output, remains on antibiotics for her bacteremia and septic shock presentation, hemodynamically stable. WBC count is 8.1 hemoglobin 7.5 basic metabolic profile is normal renal profile is improving creatinine down to 1.22, patient remains on Unasyn The patient is seen today July 16, 2023 in follow-up on the regular medical floor. She was transferred out of the ICU yesterday. She remains awake and alert in no acute distress. Maintaining good O2 saturations in the 90s on room air. She is continued on Unasyn and Cipro for right lower extremity cellulitis. Doppler negative for DVT. Wound culture was positive for beta-hemolytic strep group G, Enterobacter [place], methicillin sensitive staphylococcus aureus. White count 7.6. Hemoglobin 7.8. Platelets 82,000. Sodium 132. Potassium 4.0. Bicarb 21. BUN 42. Creatinine 1.08. Glucose 106 The patient is seen today July 17, 2023 in follow-up on the regular medical floor. She is currently sitting up in bed. Awake and alert in no acute distress. Family is at the bedside. She denies any worsening shortness of breath, cough or congestion. She is maintaining good O2 saturations in the 90s on room air. She is afebrile. Hemodynamically stable. No plans for surgical debridement of the right lower extremity wound. Cellulitis is unchanged. Bone scan is pending. She remains on antibiotics in the form of Zosyn. Anticoagulated with Eliquis. Follow-up blood cultures revealing no growth. White count 6.5. Hemoglobin 7.6. Platelets 94,000. Sodium 136. Potassium 4.0. Bicarb 25. BUN 32. Creatinine 1.2. C-reactive protein 12.5. The patient is seen today July 18, 2023 and follow-up on the regular medical floor. She awake and alert in no acute distress. Resting comfortably in bed. Denies any worsening shortness of breath, cough or congestion. Maintaining good O2 saturations in the 90s on room air. She has been afebrile. Hemodynamically stable. Bone scan revealed no evidence of osteomyelitis of the right lower extremity. There is noted cellulitis. There is degenerative uptake in the left knee and left midfoot. Follow-up blood cultures revealed no growth. White count 6.7. Hemoglobin 7.6. Platelets 94,000. Sodium 134. Potassium 3.8. Bicarb 23. BUN 32. Creatinine 1.20. Glucose 108. She remains on antibiotics in the form of Zosyn. The patient is seen today July 19, 2023 in follow-up on the regular medical floor. She is resting comfortably in bed. She is awake and alert in no acute distress. Maintaining good O2 saturations in the 90s on room air. Right leg cellulitis and wound culture positive for beta-hemolytic strep group G, Enterobacter [place], Staphylococcus aureus. Follow-up blood cultures revealed no growth. White count 5.9. Hemoglobin 6.9. Platelets 117. Sodium 135. Potassium 4.0. Bicarb 22. BUN 29. Creatinine 1.3. Glucose 109. 1 unit of packed red blood cells have been ordered. She remains on antibiotics in the form of Zosyn. Anticoagulated with Eliquis. The patient is seen today July 20, 2023 in follow-up on the regular medical floor. She is currently sitting up in bed. Awake and alert in no acute distress. Maintaining good O2 saturations in the 90s on room air. She is still having some right lower extremity discomfort where her cellulitis is. She is status post 1 unit of packed red blood cells this admission. Current hemoglobin 7.9. Platelets 151. White count 5.8. Sodium 136. Potassium 4.1. Bicarb 23. BUN 24. Creatinine 1.1. Glucose 86. She is continued on antibiotics in the form of Zosyn. Anticoagulated with Eliquis. Follow-up blood cultures revealed no growth. The patient is seen today July 21, 2023 in follow-up on the regular medical floor. She remains awake and alert in no acute distress. Sitting up in bed. No worsening shortness of breath, cough or congestion. Right lower extremity feeling somewhat better. No worsening cellulitis. She remains on antibiotics in the form of Zosyn. ID is following. Anticoagulated with Eliquis. Follow-up blood cultures revealed no growth. Glucose 103. The patient is seen today July 22, 2023 in follow-up on the regular medical floor. She is currently sitting up in a chair at the bedside. Awake and alert in no acute distress. Maintaining O2 saturations in the 90s on room air. She is continued on antibiotics in the form of Zosyn. Eliquis for anticoagulation. Glucose 100. Awaiting placement. Objective - Vital Signs Vital signs: Vital Signs Temp 98.1 F 07/22/23 07:09 Pulse 90 07/22/23 07:09 Resp 16 07/22/23 07:09 BP 120/74 07/22/23 07:09 Pulse Ox 94 L 07/22/23 07:09 FiO2 Intake & Output 07/21/23 07/22/23 07/22/23 18:59 06:59 18:59 Output Total 1300 Balance -1300 Weight 92 kg Output: Urine 1300 Other: Voiding Method Toilet External Catheter # Voids 1 - Exam General: Awake, alert 88-year-old female. Sitting up in a chair. On room air. Skin: Skin is warm and dry chronic large nonhealing ulcer noted on the distal aspect of the right lower extremity above the ankle. Eye: Pupils are equal, round and reactive to light, extra-ocular movements are intact; there is normal conjunctiva bilaterally. Ears, nose, mouth and throat: There are moist mucous membranes and no oral lesions. Neck: The neck is supple, there is no tenderness or JVD. Cardiovascular: Irregular irregular rhythm, 2/6 systolic murmur throughout the precordium.. Respiratory: Clear bilaterally no rhonchi no wheezes. Gastrointestinal: Soft, non-distended, non-tender abdomen without masses or organomegaly noted. Bowel sounds are unremarkable. Musculoskeletal: Normal ROM, no tenderness. Extremities: No clubbing, no cyanosis, patient has a chronic nonhealing ulcer noted in the right lower extremity just above the right ankle. Significant cellulitis of the right lower extremity Neurological: Alert oriented x 3 no gross focal deficit. Psychiatric: Normal mood and affect and normal mental status examination. - Labs CBC & Chem 7: 07/21/23 06:58 07/21/23 06:58 Labs: Abnormal Lab Results - Last 24 Hours (Table) 07/21/23 07/21/23 07/21/23 Range/Units 06:58 06:58 12:06 RBC 2.82 L (4.10-5.20) X 10*6/uL Hgb 7.8 L (12.0-15.0) g/dL Hct 24.7 L (37.2-46.3) % MCHC 31.6 L (32.0-37.0) g/dL Est GFR (CKD-EPI) 49 L (>=60) POC Glucose (mg/dL) 176 H (70-110) mg/dL Alkaline Phosphatase 318 H (41-126) U/L Total Protein 5.5 L (6.2-8.2) g/dL Albumin 2.9 L (3.8-4.9) g/dL Albumin/Globulin Ratio 1.12 L (1.60-3.17) Ratio / Range/Units 20:22 RBC (4.10-5.20) X 10*6/uL Hgb (12.0-15.0) g/dL Hct (37.2-46.3) % MCHC (32.0-37.0) g/dL Est GFR (CKD-EPI) (>=60) POC Glucose (mg/dL) 146 H (70-110) mg/dL Alkaline Phosphatase (41-126) U/L Total Protein (6.2-8.2) g/dL Albumin (3.8-4.9) g/dL Albumin/Globulin Ratio (1.60-3.17) Ratio Assessment and Plan Assessment: Hypotension, secondary to septic shock and beta-hemolytic strep group G bacteremia with right lower extremity cellulitis. Recovered and off pressors. Follow-up blood cultures revealed no growth Chronic infected right lower extremity ulcer is the most likely source of her infection and sepsis. Cultures positive for beta-hemolytic strep group G, Enterobacter cloacae, methicillin sensitive Staphylococcus aureus. Bone scan revealed no evidence of osteomyelitis. She remains on Zosyn Chronic anemia and today's hemoglobin 7.9, has received 1 unit of packed red blood cells this admission Type 2 diabetes with diabetic nephropathy Acute on chronic kidney injury most likely secondary to sepsis/acute tubular necrosis Toxic metabolic encephalopathy History of underlying dementia History of chronic anemia History of benign positional vertigo History of underlying COPD mild to moderate History of closed fracture of neck of right femur History of aortic stenosis and previous TAVR History of GERD Benign essential hypertension Dyslipidemia Insomnia Chronic fatigue Chronic atrial fibrillation Plan: The patient was seen and evaluated Medications reviewed Plan is for 7 to 10 days of Zosyn Infectious disease is on the case Social work working on discharge planning Plan is for subacute versus inpatient rehab postdischarge I have personally seen and examined the patient, performed the documentation and the assessment and plan as written. Number of minutes spent on the visit: 10.
--- NOTE | 2023-07-22 12:13 | P.PN ---
Subjective Progress Note Date: 07/22/23 Principal diagnosis: Reason for follow-up is sepsis right leg wound and cellulitis Patient is a 88-year-old female with a past medical history significant for diabetes mellitus hypertension hyperlipidemia COPD atrial fibrillation patient also have a chronic nonhealing wound to the right lower extremity and presented to the hospital with fever confusion patient was noted to be septic possibly to the right lower extremity wound infection and cellulitis. On today's evaluation that is 07/22/2023, Patient is afebrile patient is currently on room air and denies having any shortness of breath, the patient denies any chest pain or cough, the patient denies any nausea vomiting did not have any abdominal pain and no diarrhea, pain to the right lower extremity has decreased in intensity no new labs obtained today blood culture to be negative Objective - Vital Signs Vital signs: Vital Signs Temp 98.1 F 07/22/23 07:09 Pulse 90 07/22/23 07:09 Resp 16 07/22/23 07:09 BP 120/74 07/22/23 07:09 Pulse Ox 94 L 07/22/23 07:09 FiO2 Intake & Output 07/21/23 07/22/23 07/22/23 18:59 06:59 18:59 Output Total 1300 Balance -1300 Weight 92 kg Output: Urine 1300 Other: Voiding Method Toilet External Catheter # Voids 1 - Exam GENERAL DESCRIPTION: An elderly female lying in bed in no distress RESPIRATORY SYSTEM: Unlabored breathing , decreased breath sounds at bases HEART: S1 S2 regular rate and rhythm , ABDOMEN: Soft , no tenderness EXTREMITIES: Right leg wound is currently dressed right lower extremity redness slightly decreased in intensity - Labs CBC & Chem 7: 07/21/23 06:58 07/21/23 06:58 Labs: Abnormal Lab Results - Last 24 Hours (Table) 07/21/23 07/21/23 07/21/23 Range/Units 06:58 06:58 12:06 RBC 2.82 L (4.10-5.20) X 10*6/uL Hgb 7.8 L (12.0-15.0) g/dL Hct 24.7 L (37.2-46.3) % MCHC 31.6 L (32.0-37.0) g/dL Est GFR (CKD-EPI) 49 L (>=60) POC Glucose (mg/dL) 176 H (70-110) mg/dL Alkaline Phosphatase 318 H (41-126) U/L Total Protein 5.5 L (6.2-8.2) g/dL Albumin 2.9 L (3.8-4.9) g/dL Albumin/Globulin Ratio 1.12 L (1.60-3.17) Ratio 07/21/23 Range/Units 20:22 RBC (4.10-5.20) X 10*6/uL Hgb (12.0-15.0) g/dL Hct (37.2-46.3) % MCHC (32.0-37.0) g/dL Est GFR (CKD-EPI) (>=60) POC Glucose (mg/dL) 146 H (70-110) mg/dL Alkaline Phosphatase (41-126) U/L Total Protein (6.2-8.2) g/dL Albumin (3.8-4.9) g/dL Albumin/Globulin Ratio (1.60-3.17) Ratio Assessment and Plan (1) Cellulitis of right leg Current Visit: Yes Status: Acute Code(s): L03.115 - CELLULITIS OF RIGHT LOWER LIMB SNOMED Code(s): 34603988447404635 (2) Leukocytosis Current Visit: Yes Status: Acute Code(s): D72.829 - ELEVATED WHITE BLOOD CELL COUNT, UNSPECIFIED SNOMED Code(s): 535985512 (3) Bacteremia Current Visit: Yes Status: Acute Code(s): R78.81 - BACTEREMIA SNOMED Code(s): 6561313 (4) Chronic wound of extremity Current Visit: Yes Status: Acute Code(s): ZLH1871 - SNOMED Code(s): 75605640256609 Plan: 1patient presented to the hospital with sepsis in this patient who did have a fever tachycardia elevated white count source likely right lower extremity wound with secondary cellulitis as currently no other obvious focus of infection patient did not have respiratory symptoms lungs are clear to auscultation chest x-ray was negative abdominal soft urine is negative, we will likely need to cover for the gram-positive skin rodney to be the likely pathogen 2patient did have group G strep bacteremia source likely right lower extremity wound and cellulitis 3blood cultures has been repeated and so far negative 4local culture growing group B strep as well as Enterobacter that is resistant to Unasyn and MSSA 5patient bone scan was negative for osteomyelitis 6-patient did have multiple hardware to the right lower extremity keeping in mind her complicated course, patient advised to continue with the Zosyn for 10 days on discharge and will monitor clinical course closely Dictation was produced using [employer] dictation software. please excuse any grammatical, word or spelling errors. Time with Patient: Less than 30
--- NOTE | 2023-07-22 15:44 | P.PN ---
Subjective Progress Note Date: 07/22/23 Hospital course: Patient is a 88-year-old female with diabetes mellitus type 2 with peripheral neuropathy, chronic A-fib on Eliquis, COPD, hypertension, dyslipidemia, and chronic right lower extremity nonhealing ulcer who presented to the emergency department due to confusion and fever. On arrival to the ER here vital signs were remarkable for temperature of 102.3 and a pulse of 140. Laboratory analysis was remarkable for white blood cell count 13.7, hemoglobin 10.5, platelets 127, creatinine 1.32. Cepheid 4 Plex was negative. Drug screen was negative. Chest x-ray demonstrated no acute process CT head demonstrated moderate atrophy with microvascular ischemic changes. It was felt that her sepsis was likely secondary to her right lower extremity ulcer. She was started on ceftriaxone and vancomycin. Infectious disease was consulted and she was st arted on normal saline. She became hypotensive overnight and received 1 additional unit of fluid. She again became hypotensive on the morning of 07/13 necessitating norepinephrine. Her blood cultures came back positive for group B strep bacteremia. She was able to be weaned off pressors on 07/14. She continued to improve. However, now having worsening cellulitis, and having fevers again. Antibiotics broadened. ID following. Vascular surgery following, not recommending any further debridement. Nuclear medicine bone scan completed and report reviewed showing no skin to graphic evidence for osteomyelitis showing cellulitis changes of right lower extremity. Patient remains on IV antibiotics. Plans to discharge to inpatient rehab. Peer to peer interview being completed by inpatient rehab MEDICAL REVIEW SPECIALIST per social media assistant. Plan is for discharge to inpatient rehab once [id number] is completed and insurance authorization is obtained. Physical exam: Patient seen and fully evaluated at the bedside. Patient was sitting up in the chair this morning and appeared to be doing well. She reports pain in right leg is improving and currently controlled. Patient denies having any needs, complaints, or concerns at this time. Vital signs reviewed and stable. General: Nontoxic, no distress and appears stated age. Derm: Skin warm and dry, normal coloration for ethnicity. Head: Atraumatic, normocephalic and symmetric. Eyes: EOMs intact, no lid lag, and anicteric sclera Mouth: no lip lesions, mucus membranes moist Cardiovascular: regular rate and rhythm with normal S1S2, systolic murmur, positive posterior tibial pulses bilaterally, and cap refill < 2 seconds. Lungs: Respirations even, regular, and unlabored on room air. Lungs CTA bilaterally, no rhonchi, no rales, no wheezing, and no accessory muscle usage. Abdominal: soft, nontender to palpation, no guarding, no appreciable organomegaly Ext: ROM intact. No gross muscle atrophy, 1+ pitting lower extremity edema, no contractures, venous stasis dermatitis to bilateral lower extremities. Large ulcer right lower hernandez, showing new pink skin growth. Kerlix dressing clean, dry, and intact. Neuro: Speech clear, face symmetrical and CN II-XII grossly intact with no noted focal neuro deficits. Psych: Alert and oriented to person, place, time, and situation. Appropriate and pleasant affect. Assessment and Plan of Care: Polymicrobial Infected right lower extremity ulcer, now with surrounding cellulitis Bacteremia, group B strep Enlarged lymph nodes right groin, likely secondary to right lower extremity cellulitis resulting from infected ulcer Septic shock, secondary to above. Resolved Toxic metabolic encephalopathy, secondary to above. Resolved -Wound culture results positive for beta-hemolytic strep group G, Enterobacter cloacae, and Staphylococcus aureus. -Blood cultures positive for beta-hemolytic strep group G. Repeat cultures showing no growth to date. -Right lower extremity Doppler was negative for DVT but did reveal multiple enlarged lymph nodes within the right groin and generalized subcutaneous soft tissue swelling. -Nuclear medicine bone scan completed and report reviewed showing no skin to graphic evidence for osteomyelitis showing cellulitis changes of right lower extremity. -Elevating alkaline phos likely elevating secondary to PCN derivative, Zosyn -Blood pressures remain soft, continue to hold all home blood pressure medications at this time. -Continue IV antibiotics with Zosyn 3.375 g every 8 hours. -Infectious disease following, reviewed documentation in chart. Infectious disease stating patient will require an additional 10 days of Zosyn after discharge. Orders placed for midline placement. -Vascular surgery evaluated, clearing patient from their perspective stating right lower extremity ulcer does not require additional debridement at this time. -Wound care recommendations: Santyl, moist gauze, then dry gauze and roll with gauze. Return to wound care center July 23 at 12:45 PM -PT and OT consulted for evaluation, recommending inpatient rehab Acute on chronic anemia Bicytopenia with anemia and thrombocytopenia. Iron deficiency anemia -Status posttransfusion of 1 unit PRBCs hemoglobin stable at 7.8. -Thrombocytopenia resolved with platelet count of 156. -Continue ferrous sulfate 325 mg daily along with ascorbic acid 1000 mg daily. -Continue to monitor with repeat morning CBC, will transfuse as needed for hemoglobin less than 7 and/or platelet count less than 25. Acute kidney injury on chronic kidney disease stage III, resolved -Continue to hold fosinopril/hydrochlorothiazide and Lasix. [id number] diabetes mellitus type 2 -Blood glucose levels stable ranging from 88-176 over the past 24 hours. -Continue to hold metformin. -Continue glycemic protocol with NovoLog sliding scale to maintain tight glycemic control throughout hospitalization. -Hemoglobin A1c 5.4%. Data Reviewed: -Morning labs pending blood glucose levels have ranged between 88 and 176 over the past 24 hours. -Vital signs reviewed and stable. Blood pressure 120/74, heart rate 90, respiratory rate 16, temp 98.1 F, and SpO2 of 94% on room air. CODE STATUS: DNR/DNI DVT prophylaxis: Eliquis Anticipated discharge date: Awaiting insurance authorization Anticipated discharge place: Patient will likely need subacute rehab on discharge, consult placed for inpatient rehab Patient was seen independently by Nurse Pracitioner. This document was prepared using [employer] dictation software. Please allow for errors in supervisor paper testing, while rare they do occur. Patient was seen independently by Vladimir HODGES. I agree with the assessment and plan done by my colleague. Objective - Vital Signs Vital signs: Vital Signs Temp 98.1 F 07/22/23 07:09 Pulse 90 07/22/23 07:09 Resp 16 07/22/23 07:09 BP 120/74 07/22/23 07:09 Pulse Ox 94 L 07/22/23 07:09 FiO2 Intake & Output 07/21/23 07/22/23 07/22/23 18:59 06:59 18:59 Output Total 1300 Balance -1300 Weight 92 kg Output: Urine 1300 Other: Voiding Method Toilet External Catheter # Voids 1 - Labs CBC & Chem 7: 07/23/23 07:31 07/23/23 07:31 Labs: Abnormal Lab Results - Last 24 Hours (Table) 07/21/23 07/21/23 07/21/23 Range/Units 06:58 06:58 12:06 RBC 2.82 L (4.10-5.20) X 10*6/uL Hgb 7.8 L (12.0-15.0) g/dL Hct 24.7 L (37.2-46.3) % MCHC 31.6 L (32.0-37.0) g/dL Est GFR (CKD-EPI) 49 L (>=60) POC Glucose (mg/dL) 176 H (70-110) mg/dL Alkaline Phosphatase 318 H (41-126) U/L Total Protein 5.5 L (6.2-8.2) g/dL Albumin 2.9 L (3.8-4.9) g/dL Albumin/Globulin Ratio 1.12 L (1.60-3.17) Ratio / Range/Units 20:22 RBC (4.10-5.20) X 10*6/uL Hgb (12.0-15.0) g/dL Hct (37.2-46.3) % MCHC (32.0-37.0) g/dL Est GFR (CKD-EPI) (>=60) POC Glucose (mg/dL) 146 H (70-110) mg/dL Alkaline Phosphatase (41-126) U/L Total Protein (6.2-8.2) g/dL Albumin (3.8-4.9) g/dL Albumin/Globulin Ratio (1.60-3.17) Ratio
[2023-07-22 17:12] LABS: Glucose,Whole Blood 114 mg/dL (70-110)
[2023-07-22 20:44] LABS: Glucose,Whole Blood 174 mg/dL (70-110)
[2023-07-23 07:31] LABS: Glucose,Whole Blood 92 mg/dL (70-110)
[2023-07-23] MEDS: METOPROLOL TARTRATE 12.5 MG TAB PO SCH (09:55)
--- NOTE | 2023-07-23 10:00 | P.DS ---
Providers Date of admission: 07/12/23 22:17 Expected date of discharge: 07/23/23 Attending physician: Vanessa Genao MD Consults: 07/12/23 22:17 Consult Physician Routine Consulting Provider: George Quesada Consult Reason/Comments: PCP, fever, AMS Do you want consulting provider notified?: Yes Consult Physician Routine Consulting Provider: Ebony Ornelas Consult Reason/Comments: Fever, AMS, leg wound Do you want consulting provider notified?: Yes 07/20/23 14:45 Consult Physician Routine Consulting Provider: Rolf Bobby Consult Reason/Comments: in pt rehab Do you want consulting provider notified?: Yes Primary care physician: George Quesada Hospital Course: Discharge Diagnosis: Polymicrobial Infected right lower extremity ulcer, now with surrounding cellulitis. Wound culture results positive for beta-hemolytic strep group G, Enterobacter cloacae, and Staphylococcus aureus. Patient completed course of IV antibiotics throughout hospitalization. Antibiotic regimen managed by infectious disease. Wound care recommendations: Santyl, moist gauze, then dry gauze and roll with gauze. Patient being discharged to [facility] for an additional 10-day course of IV antibiotics with Zosyn. Bacteremia, group B strep. Blood cultures positive for beta-hemolytic strep group G. Repeat cultures showing no growth to date. Enlarged lymph nodes right groin, likely secondary to right lower extremity cellulitis resulting from infected ulcer. Septic shock, secondary to above. Resolved. Toxic metabolic encephalopathy, secondary to above. Resolved. Acute on chronic anemia Bicytopenia with anemia and thrombocytopenia. Iron deficiency anemia. Continue ferrous sulfate 325 mg daily along with ascorbic acid 1000 mg daily. Acute kidney injury on chronic kidney disease stage III, resolved. Lasix 20 mg daily resumed. Fosinopril/hydrochlorothiazide was discontinued. Patient to have repeat BMP completed in 3 days after discharge. [id number] diabetes mellitus type 2. Hemoglobin A1c 5.4%. Resume metformin on discharge. Continue to monitor blood glucose levels daily. Chronic atrial fibrillation. Continue anticoagulation with Eliquis 2.5 mg twice daily. Patient's heart rate high 90s and blood pressures remaining slightly so ft with current pressure of 117/69, discontinued metoprolol 50 mg daily and started patient on lower dose at 12.5 mg daily, follow-up outpatient with cardiology and PCP and if needed may be titrated upwards as patient tolerates. Hypertension. Fosinopril/hydrochlorothiazide was discontinued. Blood pressures remain soft, metoprolol 50 mg daily was discontinued and patient was restarted on lower dose at 12.5 mg daily. Hospital Course: Patient is a 88-year-old female with diabetes mellitus type 2 with peripheral neuropathy, chronic A-fib on Eliquis, COPD, hypertension, dyslipidemia, and chronic right lower extremity nonhealing ulcer who presented to the emergency department due to confusion and fever. On arrival to the ER here vital signs were remarkable for temperature of 102.3 and a pulse of 140. Laboratory analysis was remarkable for white blood cell count 13.7, hemoglobin 10.5, platelets 127, creatinine 1.32. Cepheid 4 Plex was negative. Drug screen was negative. Chest x-ray demonstrated no acute process CT head demonstrated moderate atrophy with microvascular ischemic changes. It was felt that her sepsis was likely secondary to her right lower extremity ulcer. She was started on ceftriaxone and vancomycin. Infectious disease was consulted and she was started on normal saline. She became hypotensive overnight and received 1 additional unit of fluid. She again became hypotensive on the morning of 07/13 necessitating norepinephrine. Her blood cultures came back positive for group B strep bacteremia. She was able to be weaned off pressors on 07/14. She continued to improve. However, now having worsening cellulitis, and having fevers again. Antibiotics broadened. ID following. Vascular surgery following, not recommending any further debridement. Nuclear medicine bone scan completed and report reviewed showing no skin to graphic evidence for osteomyelitis showing cellulitis changes of right lower extremity. Patient remains on IV antibiotics. Plans to discharge to rehab. Patient has been accepted to [facility] and authorization has been obtained. Patient is medically stable for discharge at this time. Physical exam: Vital signs reviewed and stable. General: Nontoxic, no distress and appears stated age. Derm: Skin warm and dry, normal coloration for ethnicity. Head: Atraumatic, normocephalic and symmetric. Eyes: EOMs intact, no lid lag, and anicteric sclera Mouth: no lip lesions, mucus membranes moist Cardiovascular: regular rate and rhythm with normal S1S2, systolic murmur, positive posterior tibial pulses bilaterally, and cap refill < 2 seconds. Lungs: Respirations even, regular, and unlabored on room air. Lungs CTA bilaterally, no rhonchi, no rales, no wheezing, and no accessory muscle usage. Abdominal: soft, nontender to palpation, no guarding, no appreciable organomegaly Ext: ROM intact. No gross muscle atrophy, 1+ pitting lower extremity edema, no contractures, venous stasis dermatitis to bilateral lower extremities. Large ulcer right lower hernandez, showing new pink skin growth. Kerlix dressing clean, dry, and intact. Neuro: Speech clear, face symmetrical and CN II-XII grossly intact with no noted focal neuro deficits. Psych: Alert and oriented to person, place, time, and situation. Appropriate and pleasant affect. A total of 35 minutes of time were spent preparing this complex discharge summary. Pt was discharged on 07/23/2023 at 9:42 AM. Patient was seen independently by Nurse Practitioner. This document was prepared using [employer] dictation software. Please allow for errors in business systems administrator while rare they do occur. Slava Gilbert NP rendered care for this patient independently, reviewed the findings and plan as documented in the note above. I did not physically speak with or examine the patient on this date. Patient Condition at Discharge: Stable Plan - Discharge Summary Discharge Rx Participant: Yes New Discharge Prescriptions: New Collagenase [Santyl Ointment] 1 applic TOPICAL DAILY each Ferrous Sulfate [Iron (65 MG Elemental)] 325 mg PO W/LUNCH tab Piperacillin-Tazobactam [Zosyn] 3.375 gm IVPB Q8HR each Metoprolol Tartrate [Lopressor] 12.5 mg PO DAILY tab Continue metFORMIN HCL [metFORMIN HCL ER] 750 mg PO BID Latanoprost/Pf [Latanoprost 0.005% Eye Drop] 1 drop RIGHT EYE HS Atorvastatin [Lipitor] 40 mg PO Q48H Cholecalciferol [Vitamin D3 (25 Mcg = 1000 Iu)] 25 mcg PO DAILY Ascorbic Acid [Vitamin C] 1,000 mg PO DAILY Apixaban [Eliquis] 2.5 mg PO BID Multivitamins, Thera [Multivitamin (formulary)] 1 tab PO DAILY Donepezil [Aricept] 10 mg PO DAILY Zinc Gluconate [Zinc] 50 mg PO DAILY Calcium 1000mg 1 tab PO DAILY Acetaminophen Tab [Tylenol] 650 mg PO Q6HR PRN tab PRN Reason: Mild Pain Or Fever > 100.5 Co Q-10 100mg 1 tab PO DAILY Super Beets Heart Chews 2 tab PO W/LUNCH Gabapentin 300 mg PO TID #9 cap traMADol HCL 50 mg PO BID #6 tab Changed Furosemide [Lasix] 20 mg PO DAILY #0 Discontinued Ferrous Sulfate [Iron] 325 mg PO Q48H Diphenoxylate HCl/Atropine [Lomotil 2.5-0.025 mg Tablet] 1 - 2 tab PO QID PRN PRN Reason: Diarrhea Zolpidem [Ambien] 5 mg PO HS PRN PRN Reason: Insomnia Metoprolol Tartrate [Lopressor] 50 mg PO DAILY Fosinopril/Hydrochlorothiazide [Monopril HCT 10-12.5 mg Tab] 1 tab PO DAILY Discharge Medication List Apixaban [Eliquis] 2.5 mg PO BID 10/10/18 [History] Ascorbic Acid [Vitamin C] 1,000 mg PO DAILY 10/10/18 [History] Atorvastatin [Lipitor] 40 mg PO Q48H 10/10/18 [History] Cholecalciferol [Vitamin D3 (25 Mcg = 1000 Iu)] 25 mcg PO DAILY 10/10/18 [History] Latanoprost/Pf [Latanoprost 0.005% Eye Drop] 1 drop RIGHT EYE HS 10/10/18 [History] Multivitamins, Thera [Multivitamin (formulary)] 1 tab PO DAILY 10/10/18 [History] metFORMIN HCL [metFORMIN HCL ER] 750 mg PO BID 10/10/18 [History] Donepezil [Aricept] 10 mg PO DAILY 12/27/20 [History] Calcium 1000mg 1 tab PO DAILY 01/23/23 [History] Co Q-10 100mg 1 tab PO DAILY 01/23/23 [History] Super Beets Heart Chews 2 tab PO W/LUNCH 01/23/23 [History] Zinc Gluconate [Zinc] 50 mg PO DAILY 01/23/23 [History] Acetaminophen Tab [Tylenol] 650 mg PO Q6HR PRN tab 01/28/23 [Rx] Collagenase [Santyl Ointment] 1 applic TOPICAL DAILY each 07/23/23 [Rx] Ferrous Sulfate [Iron (65 MG Elemental)] 325 mg PO W/LUNCH tab 07/23/23 [Rx] Furosemide [Lasix] 20 mg PO DAILY #0 07/23/23 [Rx] Gabapentin 300 mg PO TID #9 cap 07/23/23 [Rx] Metoprolol Tartrate [Lopressor] 12.5 mg PO DAILY tab 07/23/23 [Rx] Piperacillin-Tazobactam [Zosyn] 3.375 gm IVPB Q8HR each 07/23/23 [Rx] traMADol HCL 50 mg PO BID #6 tab 07/23/23 [Rx] Follow up Appointment(s)/Referral(s): George Quesada DO [Primary Care Provider] - 1-2 days Ebony Ornelas MD [STAFF PHYSICIAN] - 2 Weeks Ambulatory/Diagnostic Orders: Basic Metabolic Panel [LAB.AMB] Time Frame: 3 Days, Location: None Selected Patient Instructions/Handouts: Bacteremia (DC), Chronic Wounds (DC) Activity/Diet/Wound Care/Special Instructions: Activity: As tolerated. Take breaks as needed. Diet: Heart healthy and carb consistent diet. Avoid salts, or foods with hidden salts such as canned or boxed foods and frozen dinners. Extra salt makes your heart work harder and traps the fluid in your body for longer. Special Instructions: Take all of your medications as directed and remember to keep all of your doctor's appointments and follow-up as needed. Wound care recommendations: Santyl, moist gauze, then dry gauze and roll with gauze. Continue with IV antibiotics, Zosyn for an additional 10 days with last treatment day of antibiotic therapy being 08/02/2023. Thank you for allowing us to participate in your care, it was truly a pleasure having you for our patient!!! Discharge Disposition: TRANSFER TO SNF/ECF
[2023-07-23 10:49] LABS: HGB 7.8 g/dL (12.0-15.0); MCH 28.9 pg (27.0-32.0); MCHC 32.5 g/dL (32.0-37.0); MCV 88.9 FL (80.0-97.0); Mean Platelet Volume 9.8 FL (9.5-12.2); NRBC Per 100 WBC 0 X 10*3/uL (0.00-0.01); Platelet Count 181 X 10*3/uL (140-440); RDW 14.6 % (11.5-14.5); WBC 5.75 X 10*3/uL (4.50-10.00)
[2023-07-23 11:01] LABS: ALT 13 U/L (8-44); AST 14 U/L (13-35); Albumin/Globulin Ratio 1.11 Ratio (1.60-3.17); Alkaline Phosphatase 279 U/L (41-126); BUN/Creat Ratio 15.27 Ratio (12.00-20.00); Blood Urea Nitrogen 16.8 mg/dL (9.0-27.0); Calcium 8.6 mg/dL (8.7-10.3); Carbon Dioxide 25.2 mmol/L (21.6-31.8); Chloride 103 mmol/L (96-109); Globulin 2.7 g/dL (1.6-3.3); Glucose 81 mg/dL (70-110); Magnesium 1.9 mg/dL (1.5-2.4); Potassium 4.3 mmol/L (3.5-5.5); Sodium 139 mmol/L (135-145); Total Bilirubin 0.5 mg/dL (0.3-1.2); Total Protein 5.7 g/dL (6.2-8.2)
[2023-07-23 11:12] LABS: Glucose,Whole Blood 101 mg/dL (70-110)
--- NOTE | 2023-07-23 13:11 | P.PN ---
Subjective Progress Note Date: 07/23/23 This is an 88-year-old female with history of multiple medical problems including chronic right lower extremity nonhealing ulcer, chronic atrial fibrillation, chronic anemia, dementia, dyslipidemia, history of aortic valve stenosis and previous TAVR, type 2 diabetes, essential hypertension, mild obstructive lung disease and restrictive lung disease, brought into the emergency room yesterday mostly with concern of family members about her confusion and low-grade fever. Patient developed chills and mental status change, patient had no symptoms of cough, no shortness of breath, no headache, no neck pain, no nausea, no abdominal pain, no melena, no hematemesis. Patient does have history of chronic right lower extremity ulcer, and has required antibiotics in the past for this ulcer, continues to follow-up usually with the wound care center for her ulcer. In the ER, patient had a relatively normal CT of the brain, chest x-ray was also unremarkable, patient was noted to be hypotensive, and she received fluid boluses, did not require any epinephrine initially, but today after I saw the patient and she was getting fluids at 150 cc/h, patient developed hypotension requiring norepinephrine, and I felt that the patient has sepsis and possibly septic shock. And the patient is receiving antibiotic in the form of vancomycin and Rocephin. Blood cultures are pending. WBC count is 13.8 hemoglobin is 8.4. Basic metabolic profile is normal creatinine went up from 1.32 up to 1.40 in less than 24 hours. Patient had negative drug screen, negative influenza a influenza B RSV and COVID-19 screeni ng. Analysis was noted to be unremarkable. Lactic acid on admission was 1.1 hemoglobin this morning was 8.4, her hemoglobin on admission was 10.5, reminded patient received few liters of fluid since admission Patient was reevaluated today on 07/14/23, patient remains in the ICU, still requiring norepinephrine at 0.05 mcg/kg/min. Blood cultures on this patient came back positive for beta-hemolytic strep group G, her wound cultures came back positive for beta-hemolytic strep and gram-negative bacilli. Her antibiotics were transitioned to Unasyn, clinically the patient is feeling better, she is more awake today, her blood pressure seems to be stabilizing, and she is on a very minimal dose of norepinephrine which would likely be discontinued in the next few hours norepinephrine is being titrated down. WBC count today is 16 hemoglobin 8.1 basic metabolic profile is normal renal profile is improving creatinine is down to 1.30 from 1.40 yesterday. Reevaluated today on 07/15/2023, patient remains in the ICU, patient is doing well, not in any distress, she is actually on room air, she is off norepinephrine, she had good urine output, remains on antibiotics for her bacteremia and septic shock presentation, hemodynamically stable. WBC count is 8.1 hemoglobin 7.5 basic metabolic profile is normal renal profile is improving creatinine down to 1.22, patient remains on Unasyn The patient is seen today July 16, 2023 in follow-up on the regular medical floor. She was transferred out of the ICU yesterday. She remains awake and alert in no acute distress. Maintaining good O2 saturations in the 90s on room air. She is continued on Unasyn and Cipro for right lower extremity cellulitis. Doppler negative for DVT. Wound culture was positive for beta-hemolytic strep group G, Enterobacter [place], methicillin sensitive staphylococcus aureus. White count 7.6. Hemoglobin 7.8. Platelets 82,000. Sodium 132. Potassium 4.0. Bicarb 21. BUN 42. Creatinine 1.08. Glucose 106 The patient is seen today July 17, 2023 in follow-up on the regular medical floor. She is currently sitting up in bed. Awake and alert in no acute distress. Family is at the bedside. She denies any worsening shortness of breath, cough or congestion. She is maintaining good O2 saturations in the 90s on room air. She is afebrile. Hemodynamically stable. No plans for surgical debridement of the right lower extremity wound. Cellulitis is unchanged. Bone scan is pending. She remains on antibiotics in the form of Zosyn. Anticoagulated with Eliquis. Follow-up blood cultures revealing no growth. White count 6.5. Hemoglobin 7.6. Platelets 94,000. Sodium 136. Potassium 4.0. Bicarb 25. BUN 32. Creatinine 1.2. C-reactive protein 12.5. The patient is seen today July 18, 2023 and follow-up on the regular medical floor. She awake and alert in no acute distress. Resting comfortably in bed. Denies any worsening shortness of breath, cough or congestion. Maintaining good O2 saturations in the 90s on room air. She has been afebrile. Hemodynamically stable. Bone scan revealed no evidence of osteomyelitis of the right lower extremity. There is noted cellulitis. There is degenerative uptake in the left knee and left midfoot. Follow-up blood cultures revealed no growth. White count 6.7. Hemoglobin 7.6. Platelets 94,000. Sodium 134. Potassium 3.8. Bicarb 23. BUN 32. Creatinine 1.20. Glucose 108. She remains on antibiotics in the form of Zosyn. The patient is seen today July 19, 2023 in follow-up on the regular medical floor. She is resting comfortably in bed. She is awake and alert in no acute distress. Maintaining good O2 saturations in the 90s on room air. Right leg cellulitis and wound culture positive for beta-hemolytic strep group G, Enterobacter [place], Staphylococcus aureus. Follow-up blood cultures revealed no growth. White count 5.9. Hemoglobin 6.9. Platelets 117. Sodium 135. Potassium 4.0. Bicarb 22. BUN 29. Creatinine 1.3. Glucose 109. 1 unit of packed red blood cells have been ordered. She remains on antibiotics in the form of Zosyn. Anticoagulated with Eliquis. The patient is seen today July 20, 2023 in follow-up on the regular medical floor. She is currently sitting up in bed. Awake and alert in no acute distress. Maintaining good O2 saturations in the 90s on room air. She is still having some right lower extremity discomfort where her cellulitis is. She is status post 1 unit of packed red blood cells this admission. Current hemoglobin 7.9. Platelets 151. White count 5.8. Sodium 136. Potassium 4.1. Bicarb 23. BUN 24. Creatinine 1.1. Glucose 86. She is continued on antibiotics in the form of Zosyn. Anticoagulated with Eliquis. Follow-up blood cultures revealed no growth. The patient is seen today July 21, 2023 in follow-up on the regular medical floor. She remains awake and alert in no acute distress. Sitting up in bed. No worsening shortness of breath, cough or congestion. Right lower extremity feeling somewhat better. No worsening cellulitis. She remains on antibiotics in the form of Zosyn. ID is following. Anticoagulated with Eliquis. Follow-up blood cultures revealed no growth. Glucose 103. The patient is seen today July 22, 2023 in follow-up on the regular medical floor. She is currently sitting up in a chair at the bedside. Awake and alert in no acute distress. Maintaining O2 saturations in the 90s on room air. She is continued on antibiotics in the form of Zosyn. Eliquis for anticoagulation. Glucose 100. Awaiting placement. The patient is seen today July 23, 2023 in follow-up on the regular medical floor. She is sitting up in a chair. Awake and alert in no acute distress. Continues to maintain good O2 saturations in the 90s on room air. She is status post 1 unit of packed red blood cells this admission. Current hemoglobin 7.8. Platelets 181. White count 5.7. Sodium 139. Potassium 4.3. Bicarb 25. BUN 17. Creatinine 1.1. Glucose 92. She is continued on Zosyn. Anticoagulated with Eliquis. Objective - Vital Signs Vital signs: Vital Signs Temp 98.1 F 07/23/23 06:50 Pulse 97 07/23/23 06:50 Resp 17 07/23/23 06:50 BP 117/69 07/23/23 06:50 Pulse Ox 94 L 07/23/23 06:50 FiO2 Intake & Output 07/22/23 07/23/23 07/23/23 18:59 06:59 18:59 Intake Total 920 100 Output Total 2 Balance 918 100 Weight 79 kg Intake: Oral 920 100 Output: Urine 2 Other: Voiding Method Toilet External Catheter # Voids 3 1 # Bowel Movements 1 - Exam General: Awake, very pleasant 88-year-old female. Up in a chair. On room air. Skin: Skin is warm and dry chronic large nonhealing ulcer noted on the distal aspect of the right lower extremity above the ankle. Eye: Pupils are equal, round and reactive to light, extra-ocular movements are intact; there is normal conjunctiva bilaterally. Ears, nose, mouth and throat: There are moist mucous membranes and no oral lesions. Neck: The neck is supple, there is no tenderness or JVD. Cardiovascular: Irregular irregular rhythm, 2/6 systolic murmur throughout the precordium.. Respiratory: Clear bilaterally no rhonchi no wheezes. Gastrointestinal: Soft, non-distended, non-tender abdomen without masses or organomegaly noted. Bowel sounds are unremarkable. Musculoskeletal: Normal ROM, no tenderness. Extremities: Chronic nonhealing ulcer noted in the right lower extremity just above the right ankle. Significant cellulitis of the right lower extremity Neurological: Alert oriented x 3 no gross focal deficit. Psychiatric: Normal mood and affect and normal mental status examination. - Labs CBC & Chem 7: 07/23/23 07:31 07/23/23 07:31 Labs: Abnormal Lab Results - Last 24 Hours (Table) 07/22/23 07/22/23 07/23/23 Range/Units 17:10 20:41 07:31 RBC 2.70 L (4.10-5.20) X 10*6/uL Hgb 7.8 L (12.0-15.0) g/dL Hct 24.0 L (37.2-46.3) % RDW 14.6 H (11.5-14.5) % Est GFR (CKD-EPI) (>=60) POC Glucose (mg/dL) 114 H 174 H (70-110) mg/dL Calcium (8.7-10.3) mg/dL Alkaline Phosphatase (41-126) U/L Total Protein (6.2-8.2) g/dL Albumin (3.8-4.9) g/dL Albumin/Globulin Ratio (1.60-3.17) Ratio 07/23/23 Range/Units 07:31 RBC (4.10-5.20) X 10*6/uL Hgb (12.0-15.0) g/dL Hct (37.2-46.3) % RDW (11.5-14.5) % Est GFR (CKD-EPI) 49 L (>=60) POC Glucose (mg/dL) (70-110) mg/dL Calcium 8.6 L (8.7-10.3) mg/dL Alkaline Phosphatase 279 H (41-126) U/L Total Protein 5.7 L (6.2-8.2) g/dL Albumin 3.0 L (3.8-4.9) g/dL Albumin/Globulin Ratio 1.11 L (1.60-3.17) Ratio Assessment and Plan Assessment: Hypotension, secondary to septic shock and beta-hemolytic strep group G bacteremia with right lower extremity cellulitis. Recovered and off pressors. Follow-up blood cultures revealed no growth Chronic infected right lower extremity ulcer is the most likely source of her infection and sepsis. Cultures positive for beta-hemolytic strep group G, Enterobacter cloacae, methicillin sensitive Staphylococcus aureus. Bone scan revealed no evidence of osteomyelitis. She remains on Zosyn Chronic anemia and today's hemoglobin 7.8, has received 1 unit of packed red blood cells this admission Type 2 diabetes with diabetic nephropathy Acute on chronic kidney injury most likely secondary to sepsis/acute tubular necrosis Toxic metabolic encephalopathy History of underlying dementia History of chronic anemia History of benign positional vertigo History of underlying COPD mild to moderate History of closed fracture of neck of right femur History of aortic stenosis and previous TAVR History of GERD Benign essential hypertension Dyslipidemia Insomnia Chronic fatigue Chronic atrial fibrillation Plan: The patient was seen and evaluated Medications reviewed Plan is for 7 to 10 days of Zosyn Plan is for discharge to [facility] today I have personally seen and examined the patient, performed the documentation and the assessment and plan as written. Number of minutes spent on the visit: 10.
[2023-07-23 14:21] VITALS: BP 147/76; PULSE 83; RESP 18; TEMP 97.7
--- NOTE | 2023-07-23 14:36 | P.PN ---
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 On today's evaluation that is 07/23/2023,the patient denies any fever or any chills, patient is breathing comfortably on room air, the patient denies chest pain shortness of breath and no significant cough, patient denies abdominal pain, no nausea vomiting or diarrhea. Pain to the right lower extremity has dec reased in intensity. Patient white count of 5.75, creatinine is 1.1 blood culture repeat negative Objective - Vital Signs Vital signs: Vital Signs Temp 98.1 F 07/23/23 06:50 Pulse 97 07/23/23 06:50 Resp 17 07/23/23 06:50 BP 117/69 07/23/23 06:50 Pulse Ox 94 L 07/23/23 06:50 FiO2 Intake & Output 07/22/23 07/23/23 07/23/23 18:59 06:59 18:59 Intake Total 920 100 Output Total 2 Balance 918 100 Weight 79 kg Intake: Oral 920 100 Output: Urine 2 Other: Voiding Method Toilet External Catheter # Voids 3 1 # Bowel Movements 1 - Exam GENERAL DESCRIPTION: An elderly female lying in bed in no distress RESPIRATORY SYSTEM: Unlabored breathing , decreased breath sounds at bases HEART: S1 S2 regular rate and rhythm , ABDOMEN: Soft , no tenderness EXTREMITIES: Right leg wound is currently dressed right lower extremity redness slightly decreased in intensity - Labs CBC & Chem 7: 07/23/23 07:31 07/23/23 07:31 Labs: Abnormal Lab Results - Last 24 Hours (Table) 07/22/23 07/22/23 Range/Units 17:10 20:41 POC Glucose (mg/dL) 114 H 174 H (70-110) mg/dL Assessment and Plan (1) Cellulitis of right leg Current Visit: Yes Status: Acute Code(s): L03.115 - CELLULITIS OF RIGHT LOWER LIMB SNOMED Code(s): 31526247538841539 (2) Leukocytosis Current Visit: Yes Status: Acute Code(s): D72.829 - ELEVATED WHITE BLOOD CELL COUNT, UNSPECIFIED SNOMED Code(s): 076111671 (3) Bacteremia Current Visit: Yes Status: Acute Code(s): R78.81 - BACTEREMIA SNOMED Code (s): 0165480 (4) Chronic wound of extremity Current Visit: Yes Status: Acute Code(s): GNQ7532 - SNOMED Code(s): 89686566326134 Plan: 1patient presented to the hospital with sepsis in this patient who did have a fever tachycardia elevated white count source likely right lower extremity wound with secondary cellulitis as currently no other obvious focus of infection patient did not have respiratory symptoms lungs are clear to auscultation chest x-ray was negative abdominal soft urine is negative, we will likely need to cover for the gram-positive skin rodney to be the likely pathogen 2patient did have group G strep bacteremia source likely right lower extremity wound and cellulitis 3blood cultures has been repeated and so far negative 4local culture growing group B strep as well as Enterobacter that is resistant to Unasyn and MSSA 5patient bone scan was negative for osteomyelitis 6-patient has shown improvement in her right lower extremity cellulitis, keeping in mind her complicated course, patient advised to continue with the Zosyn for 10 days on discharge and close outpatient follow-up Dictation was produced using [employer] dictation software. please excuse any grammatical, word or spelling errors. Time with Patient: Less than 30
[2023-07-23 18:35] LABS: Glucose,Whole Blood 102 mg/dL (70-110)
== END 2023-07-23 17:03 | DRG 871 ==
LOC: EC 19:57 → 4SSUR 22:17 → 2SICU 07-13 00:48 → 4SSUR 07-15 15:02
PROVIDERS: ADMIT Internal Medicine; ATTEND Internal Medicine
PROC: 3E033XZ Introduction of Vasopressor into Peripheral Vein, Percutaneous Approach (ICD-10-PCS; principal; 2023-07-13)
PROC: 30233N1 Transfusion of Nonautologous Red Blood Cells into Peripheral Vein, Percutaneous Approach (ICD-10-PCS; 2023-07-19)
PROC: 05HF33Z Insertion of Infusion Device into Left Cephalic Vein, Percutaneous Approach (ICD-10-PCS; 2023-07-22 23:35)
DX: A40.9 Streptococcal sepsis, unspecified (principal); G92.8 Other toxic encephalopathy; N17.0 Acute kidney failure with tubular necrosis; R65.21 Severe sepsis with septic shock; F05 Delirium due to known physiological condition; F03.918 Unspecified dementia, unspecified severity, with other behavioral disturbance; I48.20 Chronic atrial fibrillation, unspecified; I87.331 Chronic venous hypertension (idiopathic) with ulcer and inflammation of right lower extremity; L97.812 Non-pressure chronic ulcer of other part of right lower leg with fat layer exposed; L03.115 Cellulitis of right lower limb; D69.6 Thrombocytopenia, unspecified; E11.22 Type 2 diabetes mellitus with diabetic chronic kidney disease; E11.42 Type 2 diabetes mellitus with diabetic polyneuropathy; I12.9 Hypertensive chronic kidney disease with stage 1 through stage 4 chronic kidney disease, or unspecified chronic kidney disease; D50.9 Iron deficiency anemia, unspecified; I35.0 Nonrheumatic aortic (valve) stenosis; N18.30 Chronic kidney disease, stage 3 unspecified; Z95.2 Presence of prosthetic heart valve; J44.9 Chronic obstructive pulmonary disease, unspecified; R53.82 Chronic fatigue, unspecified; H81.10 Benign paroxysmal vertigo, unspecified ear; K21.9 Gastro-esophageal reflux disease without esophagitis; M19.90 Unspecified osteoarthritis, unspecified site; R59.9 Enlarged lymph nodes, unspecified; Z66 Do not resuscitate; I45.9 Conduction disorder, unspecified; B00.1 Herpesviral vesicular dermatitis; E78.5 Hyperlipidemia, unspecified; F17.200 Nicotine dependence, unspecified, uncomplicated; Z71.6 Tobacco abuse counseling; G47.00 Insomnia, unspecified; Z79.01 Long term (current) use of anticoagulants; Z79.84 Long term (current) use of oral hypoglycemic drugs; Z79.899 Other long term (current) drug therapy; Z86.19 Personal history of other infectious and parasitic diseases
CPT/HCPCS: 36410; 36415; 70450; 71046; 76937; 78315; 80048; 80053; 80306; 81003; 82728; 83036; 83540; 83550; 83605; 83735; 84484; 85025; 85027; 85610; 85652; 85730; 86140; 86850; 86900; 86901; 86920; 87040; 87070; 87077; 87186; 87205; 87636; 93005; 96361; 96365; 96367; 99285

== ENCOUNTER 2023-09-22 12:21 | Inpatient (IN) | payer MEDICARE ==
--- NOTE | 2023-09-22 12:29 | ED ---
General Adult HPI - General Stated complaint: DUANE Time Seen by Provider: 09/22/23 12:25 Source: patient, RN notes reviewed, old records reviewed - History of Present Illness Initial comments: This is an 88-year-old female who presents to the emergency department with difficulty breathing and elevated temperature. According to EMS the family stated that they came into the room and she was having a hard time breathing and she was slightly altered. When they did a pulse ox on her she was in the 50s. Patient states she has been coughing lately and been sick for the last 8 days but she is unable to give any further history secondary to her condition. Patient denies any chest pain. Patient denies any back pain. Patient denies any abdominal pain patient has nausea vomiting. Patient states has been ongoing for days. - Related Data Home Medications Medication Instructions Recorded Confirmed Apixaban [Eliquis] 2.5 mg PO BID 10/10/18 09/22/23 Atorvastatin [Lipitor] 40 mg PO Q48H 10/10/18 09/22/23 Latanoprost/Pf [Latanoprost 0.005% 1 drop RIGHT EYE HS 10/10/18 09/22/23 Eye Drop] Multivitamins, Thera [Multivitamin 1 tab PO DAILY 10/10/18 09/22/23 (formulary)] metFORMIN HCL [metFORMIN HCL ER] 750 mg PO BID-W/MEALS 10/10/18 09/22/23 Donepezil [Aricept] 10 mg PO DAILY 12/27/20 09/22/23 Calcium 1000mg 1 tab PO DAILY 01/23/23 09/22/23 Co Q-10 100mg 1 tab PO DAILY 01/23/23 09/22/23 Zinc Gluconate [Zinc] 50 mg PO DAILY 01/23/23 09/22/23 Ascorbic Acid [Vitamin C] 1,000 mg PO DAILY 09/22/23 09/22/23 Cholecalciferol [Vitamin D3 (25 25 mcg PO DAILY 09/22/23 09/22/23 Mcg = 1000 Iu)] Ferrous Sulfate [Iron (65 MG 325 mg PO HS 09/22/23 09/22/23 Elemental)] Fosinopril/Hydrochlorothiazide 1 tab PO DAILY 09/22/23 09/22/23 [Monopril HCT 10-12.5 mg Tab] Memantine [Namenda] 10 mg PO BID 09/22/23 09/22/23 Metoprolol Tartrate [Lopressor] 25 mg PO DAILY 09/22/23 09/22/23 Zolpidem [Ambien] 5 mg PO HS PRN 09/22/23 09/22/23 traMADol HCL 100 mg PO BID 09/22/23 09/22/23 Previous Rx's Medication Instructions Recorded Furosemide [Lasix] 20 mg PO DAILY #0 07/23/23 Gabapentin 300 mg PO TID #9 cap 07/23/23 Allergies Allergy/AdvReac Type Severity Reaction Status Date / Time Paper Tape Allergy Redness/Itc Uncoded 07/12/23 21:52 erick Review of Systems ROS Statement: Those systems with pertinent positive or pertinent negative responses have been documented in the HPI. ROS Other: All systems not noted in ROS Statement are negative. Past Medical History Past Medical History: Atrial Fibrillation, COPD, Diabetes Mellitus, Hyperlipidemia, Hypertension, Memory Impairment, Osteoarthritis (OA) Additional Past Medical History / Comment(s): possible Hiatal Hernia, left neck mass History of Any Multi-Drug Resistant Organisms: None Reported Past Surgical History: Cardiac Valve Replacement, Cholecystectomy, Orthopedic Surgery Additional Past Surgical History / Comment(s): Right knee surgery X5, Hammer Toe surgery, left knee arthroscopy Past Anesthesia/Blood Transfusion Reactions: Previous Problems w/ Anesthesia Additional Past Anesthesia/Blood Transfusion Reaction / Comment(s): Woke up during last knee surgery. Smoking Status: Current some day smoker - Past Family History Father Family Medical History: Cancer Additional Family Medical History / Comment(s): Prostate Cancer. Brother(s) Additional Family Medical History / Comment(s): Blood clot from surgery. General Exam - General Exam Comments Initial Comments: GENERAL: Patient is well-developed and well-nourished. Patient is nontoxic and well- hydrated and is in moderate distress. ENT: Neck is soft and supple. No significant lymphadenopathy is noted. Oropharynx is clear. Moist mucous membranes. Neck has full range of motion without eliciting any pain. EYES: The sclera were anicteric and conjunctiva were pink and moist. Extraocular movements were intact and pupils were equal round and reactive to light. Eyelids were unremarkable. PULMONARY: Patient is tachypneic and has crackles throughout CARDIOVASCULAR: Patient has a regular rate at about 150 beats a minute ABDOMEN: Soft and nontender with normal bowel sounds. SKIN: Skin is clear with no lesions or rashes and otherwise unremarkable. NEUROLOGIC: Patient is alert and oriented x3. Cranial nerves II through XII are grossly intact. Motor and sensory are also intact. Normal speech, volume and content. Symmetrical smile. MUSCULOSKELETAL: Normal extremities with adequate strength and full range of motion. No lower extremity swelling or edema. No calf tenderness. LYMPHATICS: No significant lymphadenopathy is noted PSYCHIATRIC: Normal psychiatric evaluation. Course Vital Signs 09/22/23 09/22/23 09/22/23 12:22 12:48 13:00 Temperature 100.3 F H Pulse Rate 163 H 131 H 137 H Respiratory 26 H 30 H 28 H Rate Blood Pressure 115/66 87/37 93/42 O2 Sat by Pulse 93 L 93 L 94 L Oximetry Fraction of Inspired Oxygen (FIO2) 09/22/23 09/22/23 09/22/23 13:25 13:45 14:00 Temperature 99.5 F Pulse Rate 120 H Respiratory 18 Rate Blood Pressure 73/39 80/43 66/33 O2 Sat by Pulse 90 L Oximetry Fraction of Inspired Oxygen (FIO2) 09/22/23 09/22/23 09/22/23 14:15 14:28 14:30 Temperature Pulse Rate 126 H 112 H Respiratory 20 24 Rate Blood Pressure 83/50 74/46 O2 Sat by Pulse 96 98 Oximetry Fraction of 50 50 Inspired Oxygen (FIO2) 09/22/23 09/22/23 09/22/23 15:14 15:33 15:49 Temperature Pulse Rate 108 H 104 H Respiratory 24 24 Rate Blood Pressure 86/56 77/42 O2 Sat by Pulse 98 96 Oximetry Fraction of 50 Inspired Oxygen (FIO2) 09/22/23 16:05 Temperature Pulse Rate 107 H Respiratory 22 Rate Blood Pressure 73/48 O2 Sat by Pulse 99 Oximetry Fraction of Inspired Oxygen (FIO2) Procedures - Sepsis Sepsis Focused Exam #1 Time Sepsis Criteria Met: 14:05 Sepsis Focused Exam Date: 09/22/23 Sepsis Focused Exam Time: 14:23 Sepsis Focused Exam Complete: Yes Vital Signs & RN Notes Reviewed: Yes Capillary Refill: < 2 Seconds: Fingers Peripheral Pulses: Weak: Radial (R) Skin Color: Normal for Patient Respiratory Exam: rales Cardiovascular Exam: tachycardia Medical Decision Making - Medical Decision Making EKG is interpreted by myself EKG shows atrial fibrillation with rapid ventricular response at 155 bpm QRS 146 QT interval is 306 QTc is 393. Patient has a left bundle branch block. Patient is unable to get a lot of fluids because she is in pulmonary edema. Repeat EKG was done because her troponin remained elevated her EKG was interpreted by myself and shows atrial fibrillation at 98 bpm QRS 144 QT interval 394 QTc is 450. Patient's EKG shows left bundle branch block. Was pt. sent in by a medical professional or institution (, PA, CNC MACHINIST, urgent care, hospital, or skilled nursing...) When possible be specific @ -No Did you speak to anyone other than the patient for history (EMS, parent, family, police, friend...)? What history was obtained from this source @ -EMS gave us all of the history upon arrival patient was in too much respi ratory distress to do so Did you review nursing and triage notes (agree or disagree)? Why? @ -I reviewed and agree with nursing and triage notes Were old charts reviewed (outside hosp., previous admission, EMS record, old EKG, old radiological studies, urgent care reports/EKG's, skilled nursing records)? Report findings @ -Patient's lab results from prior visits was compared to today's patient had a very elevated white count today compared to before. Patient's x-ray also showed pulmonary edema where it did not before. Differential Diagnosis (chest pain, altered mental status, abdominal pain women, abdominal pain men, vaginal bleeding, weakness, fever, dyspnea, syncope, headache, dizziness, GI bleed, back pain, seizure, CVA, palpatations, mental health, musculoskeletal)? @ -Differential Fever: Pneumonia, viral URI, endocarditis, myocarditis, pericarditis, otitis, sinusitis, peritonsillar Abscess, retropharyngeal Abscess, epiglottitis, peritonitis, appendicitis, [place] cystitis, diverticulitis, hepatitis, colitis, UTI, PID, TOA, pyelonephritis, prostatitis, epididymitis, meningitis, en cephalitis, pulmonary embolism, CVA, thyroid storm, pancreatitis, adrenal crisis, cavernous sinus thrombosis, this is not meant to be an all-inclusive list. Differential Dyspnea: Coronary syndrome, arrhythmia, tamponade, asthma, COPD, pulmonary embolism, pneumonia, pneumothorax, pulmonary effusion, anaphylaxis, diabetic ketoacidosis, flailed chest, pulmonary contusion, diaphragmatic rupture, anemia, neuromuscular, this is not meant to be an all-inclusive list. EKG interpreted by me (3pts min.). @ -As above X-rays interpreted by me (1pt min.). @ -Chest x-ray shows pulmonary edema CT interpreted by me (1pt min.). @ -None done U/S interpreted by me (1pt. min.). @ -None done What testing was considered but not performed or refused? (CT, X-rays, U/S, labs)? Why? @ -None What meds were considered but not given or refused? Why? @ -None Did you discuss the management of the patient with other professionals (professionals i.e. Dr., PA, CNC MACHINIST, lab, RT, psych nurse, social work specialist, dog races manager, teacher, [employer] officer, pillowcase cleaner)? Give summary @ -I spoke with Dr. Schaefer and he agreed to admit the patient I spoke with Dr. Manley and he came down to the emergency department to see the patient. Was smoking cessation discussed for >3mins.? @ -No Was critical care preformed (if so, how long)? @ -No Were there social determinants of health that impacted care today? How? (Homelessness, low income, unemployed, alcoholism, drug addiction, transportation, low edu. Level, literacy, decrease access to med. care, alf, rehab)? @ -No Was there de-escalation of care discussed even if they declined (Discuss DNR or withdrawal of care, Hospice)? DNR status @ -No What co-morbidities impacted this encounter? (DM, HTN, Smoking, COPD, CAD, Cancer, CVA, ARF, Chemo, Hep., AIDS, mental health diagnosis, sleep apnea, morbid obesity)? @ -None Was patient admitted / discharged? Hospital course, mention meds given and route, prescriptions, significant lab abnormalities, going to OR and other pertinent info. @ -Patient was started on antibiotics in the emergency department also given Tylenol Motrin bring the patient's fever down because the patient's heart rate was 160 upon arrival patient was started on Cardizem. Patient heart rate did come down to 130 but the blood pressure also dropped to the 80s and 90s systolic. So he stopped the Cardizem patient was given some small fluid boluses and because of the CHF patient was put on CPAP. Patient was feeling better heart rate was under 100 and oxygenation was 100%. Patient however still had a low blood pressure at this time and more fluid was given. Dr. Quesada and Dr. Schaefer saw the patient in the emergency department. Undiagnosed new problem with uncertain prognosis? @ -No Drug Therapy requiring intensive monitoring for toxicity (Heparin, Nitro, Insulin, Cardizem)? @ -No Were any procedures done? @ -No Diagnosis/symptom? @ -Pneumonia Acute, or Chronic, or Acute on Chronic? @ -Acute Uncomplicated (without systemic symptoms) or Complicated (systemic symptoms)? @ -Complicated Side effects of treatment? @ -No Exacerbation, Progression, or Severe Exacerbation? @ -No Poses a threat to life or bodily function? How? (Chest pain, [place], [place], pneumonia, PE, COPD, DKA, ARF, appy, cholecystitis, CVA, Diverticulitis, Homicidal, Suicidal, threat to staff... and all critical care pts) @ -Yes this can lead to sepsis and endorgan dysfunction Diagnosis/symptom? @ -A-fib with rapid ventricular response Acute, or Chronic, or Acute on Chronic? @ -Acute Uncomplicated (without systemic symptoms) or Complicated (systemic symptoms)? @ -Complicated Side effects of treatment? @ -None Exacerbation, Progression, or Severe Exacerbation] @ -No Poses a threat to life or bodily function? @ -Yes this can lead to poor perfusion and endorgan dysfunction Diagnosis/symptom? @ -Sepsis Acute, or Chronic, or Acute on Chronic? @ -Acute Uncomplicated (without systemic symptoms) or Complicated (systemic symptoms)? @ -Complicated Side effects of treatment? @ -None Exacerbation, Progression, or Severe Exacerbation] @ -No Poses a threat to life or bodily function? @ -Yes this can lead to endorgan dysfunction Diagnosis/symptom? @ -NSTEMI Acute, or Chronic, or Acute on Chronic? @ -Acute Uncomplicated (without systemic symptoms) or Complicated (systemic symptoms)? @ -Complicated Side effects of treatment? @ -None Exacerbation, Progression, or Severe Exacerbation] @ -No Poses a threat to life or bodily function? @ -Yes this can lead to an poor cardiac output and endorgan dysfunction - Lab Data Result diagrams: 09/22/23 12:30 09/22/23 12:30 Lab Results 04/23/24 04/23/24 04/23/24 Range/Units 12:30 12:30 12:30 WBC 17.8 H (3.8-10.6) k/uL RBC 3.51 L (3.80-5.40) m/uL Hgb 10.3 L (11.4-16.0) gm/dL Hct 32.8 L (34.0-46.0) % MCV 93.4 (80.0-100.0) fL MCH 29.3 (25.0-35.0) pg MCHC 31.4 (31.0-37.0) g/dL RDW 16.1 H (11.5-15.5) % Plt Count 145 L D (150-450) k/uL MPV 9.2 Neutrophils % 92 % Lymphocytes % 3 % Monocytes % 3 % Eosinophils % 1 % Basophils % 0 % Neutrophils # 16.4 H (1.3-7.7) k/uL Lymphocytes # 0.5 L (1.0-4.8) k/uL Monocytes # 0.6 (0-1.0) k/uL Eosinophils # 0.2 (0-0.7) k/uL Basophils # 0.0 (0-0.2) k/uL Hypochromasia Slight Anisocytosis Slight PT 10.6 (10.0-12.5) sec INR 1.0 (<1.2) APTT 22.3 (22.0-30.0) sec Sodium 139 (137-145) mmol/L Potassium 4.3 (3.5-5.1) mmol/L Chloride 106 (98-107) mmol/L Carbon Dioxide 20 L (22-30) mmol/L Anion Gap 13 mmol/L BUN 56 H (7-17) mg/dL Creatinine 1.31 H (0.52-1.04) mg/dL Est GFR (CKD-EPI)AfAm 43 (>60 ml/min/1.73 sqM) Est GFR (CKD-EPI)NonAf 37 (>60 ml/min/1.73 sqM) Glucose 171 H (74-99) mg/dL Lactic Ac Sepsis Rflx Plasma Lactic Acid Nino (0.7-2.0) mmol/L Calcium 9.3 (8.4-10.2) mg/dL Total Bilirubin 1.7 H (0.2-1.3) mg/dL AST 71 H (14-36) U/L ALT 38 H (4-34) U/L Alkaline Phosphatase 186 H (38-126) U/L Troponin I (0.000-0.034) ng/mL NT-Pro-B Natriuret Pep 2020 pg/mL Total Protein 7.5 (6.3-8.2) g/dL Albumin 4.2 (3.5-5.0) g/dL Urine Color Urine Appearance (Clear) Urine pH (5.0-8.0) Ur Specific [place] (1.001-1.035) Urine Protein (Negative) Urine Glucose (UA) (Negative) Urine Ketones (Negative) Urine Blood (Negative) Urine Nitrite (Negative) Urine Bilirubin (Negative) Urine Urobilinogen (<2.0) mg/dL Ur Leukocyte Esterase (Negative) Urine RBC (0-5) /hpf Urine WBC (0-5) /hpf Ur Squamous Epith Cells (0-4) /hpf Hyaline Casts (0-2) /lpf Urine Mucus (None) /hpf Influenza Type A (PCR) (Not Detectd) Influenza Type B (PCR) (Not Detectd) RSV (PCR) (Not Detectd) SARS-CoV-2 (PCR) (Not Detectd) 09/22/23 09/22/23 09/22/23 Range/Units 12:30 12:30 12:31 WBC (3.8-10.6) k/uL RBC (3.80-5.40) m/uL Hgb (11.4-16.0) gm/dL Hct (34.0-46.0) % MCV (80.0-100.0) fL MCH (25.0-35.0) pg MCHC (31.0-37.0) g/dL RDW (11.5-15.5) % Plt Count (150-450) k/uL MPV Neutrophils % % Lymphocytes % % Monocytes % % Eosinophils % % Basophils % % Neutrophils # (1.3-7.7) k/uL Lymphocytes # (1.0-4.8) k/uL Monocytes # (0-1.0) k/uL Eosinophils # (0-0.7) k/uL Basophils # (0-0.2) k/uL Hypochromasia Anisocytosis PT (10.0-12.5) sec INR (<1.2) APTT (22.0-30.0) sec Sodium (137-145) mmol/L Potassium (3.5-5.1) mmol/L Chloride (98-107) mmol/L Carbon Dioxide (22-30) mmol/L Anion Gap mmol/L BUN (7-17) mg/dL Creatinine (0.52-1.04) mg/dL Est GFR (CKD-EPI)AfAm (>60 ml/min/1.73 sqM) Est GFR (CKD-EPI)NonAf (>60 ml/min/1.73 sqM) Glucose (74-99) mg/dL Lactic Ac Sepsis Rflx Plasma Lactic Acid Nino 4.2 H* (0.7-2.0) mmol/L Calcium (8.4-10.2) mg/dL Total Bilirubin (0.2-1.3) mg/dL AST (14-36) U/L ALT (4-34) U/L Alkaline Phosphatase (38-126) U/L Troponin I 0.155 H* (0.000-0.034) ng/mL NT-Pro-B Natriuret Pep pg/mL Total Protein (6.3-8.2) g/dL Albumin (3.5-5.0) g/dL Urine Color Urine Appearance (Clear) Urine pH (5.0-8.0) Ur Specific [place] (1.001-1.035) Urine Protein (Negative) Urine Glucose (UA) (Negative) Urine Ketones (Negative) Urine Blood (Negative) Urine Nitrite (Negative) Urine Bilirubin (Negative) Urine Urobilinogen (<2.0) mg/dL Ur Leukocyte Esterase (Negative) Urine RBC (0-5) /hpf Urine WBC (0-5) /hpf Ur Squamous Epith Cells (0-4) /hpf Hyaline Casts (0-2) /lpf Urine Mucus (None) /hpf Influenza Type A (PCR) Not Detected (Not Detectd) Influenza Type B (PCR) Not Detected (Not Detectd) RSV (PCR) Not Detected (Not Detectd) SARS-CoV-2 (PCR) Not Detected (Not Detectd) 09/22/23 09/22/23 09/22/23 Range/Units 12:58 13:30 15:19 WBC (3.8-10.6) k/uL RBC (3.80-5.40) m/uL Hgb (11.4-16.0) gm/dL Hct (34.0-46.0) % MCV (80.0-100.0) fL MCH (25.0-35.0) pg MCHC (31.0-37.0) g/dL RDW (11.5-15.5) % Plt Count (150-450) k/uL MPV Neutrophils % % Lymphocytes % % Monocytes % % Eosinophils % % Basophils % % Neutrophils # (1.3-7.7) k/uL Lymphocytes # (1.0-4.8) k/uL Monocytes # (0-1.0) k/uL Eosinophils # (0-0.7) k/uL Basophils # (0-0.2) k/uL Hypochromasia Anisocytosis PT (10.0-12.5) sec INR (<1.2) APTT (22.0-30.0) sec Sodium (137-145) mmol/L Potassium (3.5-5.1) mmol/L Chloride (98-107) mmol/L Carbon Dioxide (22-30) mmol/L Anion Gap mmol/L BUN (7-17) mg/dL Creatinine (0.52-1.04) mg/dL Est GFR (CKD-EPI)AfAm (>60 ml/min/1.73 sqM) Est GFR (CKD-EPI)NonAf (>60 ml/min/1.73 sqM) Glucose (74-99) mg/dL Lactic Ac Sepsis Rflx Y Plasma Lactic Acid Nino 1.8 (0.7-2.0) mmol/L Calcium (8.4-10.2) mg/dL Total Bilirubin (0.2-1.3) mg/dL AST (14-36) U/L ALT (4-34) U/L Alkaline Phosphatase (38-126) U/L Troponin I (0.000-0.034) ng/mL NT-Pro-B Natriuret Pep pg/mL Total Protein (6.3-8.2) g/dL Albumin (3.5-5.0) g/dL Urine Color Light Yellow Urine Appearance Clear (Clear) Urine pH 5.0 (5.0-8.0) Ur Specific [place] 1.014 (1.001-1.035) Urine Protein Trace H (Negative) Urine Glucose (UA) Negative (Negative) Urine Ketones Trace H (Negative) Urine Blood Negative (Negative) Urine Nitrite Negative (Negative) Urine Bilirubin Negative (Negative) Urine Urobilinogen <2.0 (<2.0) mg/dL Ur Leukocyte Esterase Trace H (Negative) Urine RBC 2 (0-5) /hpf Urine WBC <1 (0-5) /hpf Ur Squamous Epith Cells 1 (0-4) /hpf Hyaline Casts 4 H (0-2) /lpf Urine Mucus Rare H (None) /hpf Influenza Type A (PCR) (Not Detectd) Influenza Type B (PCR) (Not Detectd) RSV (PCR) (Not Detectd) SARS-CoV-2 (PCR) (Not Detectd) 09/22/23 Range/Units 15:19 WBC (3.8-10.6) k/uL RBC (3.80-5.40) m/uL Hgb (11.4-16.0) gm/dL Hct (34.0-46.0) % MCV (80.0-100.0) fL MCH (25.0-35.0) pg MCHC (31.0-37.0) g/dL RDW (11.5-15.5) % Plt Count (150-450) k/uL MPV Neutrophils % % Lymphocytes % % Monocytes % % Eosinophils % % Basophils % % Neutrophils # (1.3-7.7) k/uL Lymphocytes # (1.0-4.8) k/uL Monocytes # (0-1.0) k/uL Eosinophils # (0-0.7) k/uL Basophils # (0-0.2) k/uL Hypochromasia Anisocytosis PT (10.0-12.5) sec INR (<1.2) APTT (22.0-30.0) sec Sodium (137-145) mmol/L Potassium (3.5-5.1) mmol/L Chloride (98-107) mmol/L Carbon Dioxide (22-30) mmol/L Anion Gap mmol/L BUN (7-17) mg/dL Creatinine (0.52-1.04) mg/dL Est GFR (CKD-EPI)AfAm (>60 ml/min/1.73 sqM) Est GFR (CKD-EPI)NonAf (>60 ml/min/1.73 sqM) Glucose (74-99) mg/dL Lactic Ac Sepsis Rflx Plasma Lactic Acid Nino (0.7-2.0) mmol/L Calcium (8.4-10.2) mg/dL Total Bilirubin (0.2-1.3) mg/dL AST (14-36) U/L ALT (4-34) U/L Alkaline Phosphatase (38-126) U/L Troponin I 1.430 H* (0.000-0.034) ng/mL NT-Pro-B Natriuret Pep pg/mL Total Protein (6.3-8.2) g/dL Albumin (3.5-5.0) g/dL Urine Color Urine Appearance (Clear) Urine pH (5.0-8.0) Ur Specific [place] (1.001-1.035) Urine Protein (Negative) Urine Glucose (UA) (Negative) Urine Ketones (Negative) Urine Blood (Negative) Urine Nitrite (Negative) Urine Bilirubin (Negative) Urine Urobilinogen (<2.0) mg/dL Ur Leukocyte Esterase (Negative) Urine RBC (0-5) /hpf Urine WBC (0-5) /hpf Ur Squamous Epith Cells (0-4) /hpf Hyaline Casts (0-2) /lpf Urine Mucus (None) /hpf Influenza Type A (PCR) (Not Detectd) Influenza Type B (PCR) (Not Detectd) RSV (PCR) (Not Detectd) SARS-CoV-2 (PCR) (Not Detectd) Critical Care Time Critical Care Time: Yes Total Critical Care Time: 35 Disposition Clinical Impression: Acute pulmonary edema, Atrial fibrillation with rapid ventricular response, Pneumonia, NSTEMI (non-ST elevated myocardial infarction), Sepsis Disposition: ADMITTED IP TO THIS HOSP Referrals: George Quesada DO [Primary Care Provider] - 1-2 days Time of Disposition: 16:13
[2023-09-22 12:36] LABS: Anisocytosis Slight; Basophils % (A) 0 %; Eosinophils # (A) 0.2 k/uL (0-0.7); Eosinophils % (A) 1 %; HCT 32.8 % (34.0-46.0); HGB 10.3 gm/dL (11.4-16.0); Hypochromasia Slight; Lymphocytes # (A) 0.5 k/uL (1.0-4.8); Lymphocytes % (A) 3 %; MCH 29.3 pg (25.0-35.0); MCHC 31.4 g/dL (31.0-37.0); MCV 93.4 fL (80.0-100.0); Mean Platelet Volume 9.2; Monocytes # (A) 0.6 k/uL (0-1.0); Monocytes % (A) 3 %; Neutrophils # (A) 16.4 k/uL (1.3-7.7); Neutrophils % (A) 92 %; RBC 3.51 m/uL (3.80-5.40); RDW 16.1 % (11.5-15.5); WBC 17.8 k/uL (3.8-10.6)
[2023-09-22] MEDS: IBUPROFEN 600 MG TAB PO STA (12:37)
[2023-09-22] MEDS: ACETAMINOPHEN TAB 500 MG TAB PO STA (12:37)
[2023-09-22 12:40] LABS: Platelet Count 145 k/uL (150-450)
[2023-09-22] MEDS: PIPERACILLIN-TAZOBACTAM 3.375 GM in SODIUM CHLORIDE 0.9% 100 ML IVPB STA (12:40)
--- NOTE | 2023-09-22 12:46 | XR ---
EXAMINATION TYPE: XR chest 1V portable DATE OF EXAM: 09/22/2023 HISTORY: Shortness of breath. COMPARISON: 07/12/2023 TECHNIQUE: Single view of the chest is submitted. FINDINGS: Demonstrated are scattered senescent parenchymal change. Cardiomegaly with pulmonary venous congestion, interstitial curly B lines and trace effusions suspici ous for underlying congestive failure. Correlate clinically. Hilar and mediastinal structures are within normal limits. Degenerative changes are seen of the dorsal spine. IMPRESSION: 1. Cardiomegaly with pulmonary venous congestion, interstitial curly B lines and trace effusions cat picious for underlying congestive failure. Correlate clinically.
[2023-09-22 12:47] LABS: ALT 38 U/L (4-34); AST 71 U/L (14-36); African American GFR (CKD) 43 (>60 ml/min/1.73 sqM); Albumin 4.2 g/dL (3.5-5.0); Alkaline Phosphatase 186 U/L (38-126); Anion Gap 13 mmol/L; Blood Urea Nitrogen 56 mg/dL (7-17); Calcium 9.3 mg/dL (8.4-10.2); Carbon Dioxide 20 mmol/L (22-30); Chloride 106 mmol/L (98-107); Glucose 171 mg/dL (74-99); Non-African American GFR(CKD) 37 (>60 ml/min/1.73 sqM); Potassium 4.3 mmol/L (3.5-5.1); Sodium 139 mmol/L (137-145); Total Bilirubin 1.7 mg/dL (0.2-1.3); Total Protein 7.5 g/dL (6.3-8.2)
[2023-09-22] MEDS: DILTIAZEM DRIP BOLUS FROM BAG 1 MG SOLN IV ONE (12:47)
[2023-09-22] MEDS: DILTIAZEM 125 MG in SODIUM CHLORIDE 0.9% 100 ML IV SCH (12:49)
[2023-09-22 12:56] LABS: NT-Pro-B-Type Natriuretic Pept 2020 pg/mL
[2023-09-22 12:59] LABS: Partial Thromboplastin Time 22.3 sec (22.0-30.0); Prothrombin Time 10.6 sec (10.0-12.5)
[2023-09-22] MEDS: SODIUM CHLORIDE 0.9% 500 ML 500 ML IV ONE ×2 (13:13→14:20)
[2023-09-22 14:06] LABS: Appearance,Urine Clear (Clear); Bilirubin,Urine Negative (Negative); Blood,Urine Negative (Negative); Color,Urine Light Yellow; Glucose,Urine (UA) Negative (Negative); Hyaline Casts,Urine 4 /lpf (0-2); Ketones,Urine Trace (Negative); Leukocyte Esterase,Urine Trace (Negative); Mucus,Urine Rare /hpf; Nitrite,Urine Negative (Negative); Protein,Urine Trace (Negative); RBC,Urine 2 /hpf (0-5); Specific Gravity,Urine 1.014 (1.001-1.035); Squamous Epithelial Cell,Urine 1 /hpf (0-4); Urobilinogen,Urine <2.0 mg/dL (<2.0); WBC,Urine <1 /hpf (0-5)
[2023-09-22] MEDS: HYDROCORTISONE SUCCINATE 100 MG/2 ML VIAL IV STA (14:25)
[2023-09-22] MEDS ORDERED: VANCOMYCIN IV PER PHARMACY 1 EACH MISC MISCELLANE PRN (15:06)
[2023-09-22] MEDS ORDERED: DOCUSATE 100 MG CAP PO PRN (15:07)
[2023-09-22] MEDS ORDERED: ONDANSETRON 4 MG/2 ML VIAL IVP PRN (15:07)
[2023-09-22] MEDS ORDERED: NALOXONE 0.4 MG/ML 1 ML VIAL IV PRN (15:07)
[2023-09-22] MEDS: VANCOMYCIN 1,500 MG in SODIUM CHLORIDE 0.9% 500 ML 500 ML IVPB STA (15:34)
[2023-09-22] MEDS: NOREPINEPHRINE 4 MG in SODIUM CHLORIDE 0.9% 250 ML IV ONE (16:03)
--- NOTE | 2023-09-22 16:21 | P.HPIM ---
History of Present Illness H&P Date: 09/22/23 88 year old F with PMH diabetes mellitus type 2 with peripheral neuropathy, chronic A-fib on Eliquis, COPD, hypertension, dyslipidemia, and chronic right lower extremity nonhealing ulcer who presented to the emergency department due to confusion, fever and hypoxia. Patient is currently on BiPAP and majority of history is obtained from the Son. Patient was at her usual state of health yesterday besides a dry cough she has been experiencing over the past week. This morning she was found incoherent, cyanotic at the lips and clammy. She was recently hospitalized for similar symptoms from 07/12-07/23 found of have septic shock from group B strep bacteremia thought to be from an infected RLE ulcer r equiring pressors. Her PCP is Dr. Quesada and her Movie Stunt Performer is Dr. Crouch. In the ED, she underwent extensive evaluation. BP 115/66, HR 163, T 100.3F, RR 26, 93% on 6L NC. CBC, Coag panel, CMP was done which showed WBC 17.8, Hg 10.3, Hct 32.8, Plt 145, bicarb 20, BUN 56, Cr 1.31, glu 171, T. bili 1.7, AST 71, ALT 38, alk phos 186. Lactic acid 4.2. Troponin 0.155, 1.43. EKG showed atrial fibrilla tion with RVR LBBB ventricular rate of 155. BNP 2020. COVID, RSV, Flu negative. UA trace ketones, trace LE, < 1 WBC. CXR showed signs of pulmonary venous congestion. She was given 2L NS bolus and given a dose of Cardizem IV. Her BP dropped as low as 66/33, she was given a dose of Hydrocortisone 100 mg IV. She was also started on BiPAP. Patient is admitted for atrial fibrillation, acute hypoxic respiratory failure and septic shock. General: non toxic, no distress, appears at stated age Derm: warm, dry Head: atraumatic, normocephalic, symmetric Eyes: EOMI, no lid lag, pale sclera Mouth: no lip lesion, mucus membranes moist Cardiovascular: S1S2 irreg, no murmur Lungs: Decreased BS bilateral, no rhonchi, + rales , no accessory muscle use Ext: no gross muscle atrophy, no edema, no contractures, RLE ulcer without erythema or drainage Neuro: moving all 4 extremities Psych: Alert, oriented, appropriate affect Based on my assessment of this patient, this patient meets a high complexity le nahun of care. Patient has an acute diagnosis of acute hypoxic respiratory failure due to COPD exacerbation and PNA that poses a threat to life or bodily function. Acute hypoxic respiratory failure Acute metabolic encephalopathy Atrial fibrillation with RVR: Cardizem drip discontinued due to hypotension. Start amiodarone drip if necessary. Check Mag level. Cardiology consulted. Pulmonary vascular congestion: Judicious use of fluid given pulmonary vascular congestion and need for BiPAP since patient is DNR/DNI. Echocardiogram ordered. Cardiology consulted. Septic shock unknown etiology: 2L NS fluid challenge in the ED. Previously admitted for group B strep bacteremia thought to be related to RLE ulcer. Start Vancomycin dosed per pharmacy and Zosyn 3.375 g IV TID. Blood culture ordered. Gallbladder US ordered given elevated transaminitis. Telemetry monitoring. Judicious use of fluid given pulmonary vascular congestion and need for BiPAP since patient is DNR/DNI. ID consulted. NSTEMI: Start low dose heparin drip. Echocardiogram ordered. Cardiology consulted. Transaminitis: Obtain gallbladder US. Diabetes mellitus: Accuchecks ACHS. COPD not in acute exacerbation: SoluMedrol 60 mg IV Q6H. DuoNeb Q4H scheduled. Pulmicort 1 mg INH BID. Pulmonary consulted. Hypertension: Hold Metoprolol and Lasix due to septic shock. Dyslipidemia: Lipitor 40 mg PO Q2D when able to PO. RLE nonhealing ulcer: Wound care consult. CODE STATUS: NO CODE. DVT Prophylaxis: Heparin drip. GI Prophylaxis: Protonix IV. Designated medical POA if patient is not able to make medical decisions for themselves: Son I have reviewed the following networks computer consultant notes: ED note I have reviewed the results of the following tests: As above I have ordered the following tests: As above I have discussed the care of this patient with the following independent historian: Son and multiple family members. RN. I have independently interpreted the following test below: CXR. I have discussed the management of this patient with the following physician: ED provider. Dr. Quesada Past Medical History Past Medical History: Atrial Fibrillation, COPD, Diabetes Mellitus, Hyperlipidemia, Hypertension, Memory Impairment, Osteoarthritis (OA) Additional Past Medical History / Comment(s): possible Hiatal Hernia, left neck mass History of Any Multi-Drug Resistant Organisms: None Reported Past Surgical History: Cardiac Valve Replacement, Cholecystectomy, Orthopedic Surgery Additional Past Surgical History / Comment(s): Right knee surgery X5, Hammer Toe surgery, left knee arthroscopy Past Anesthesia/Blood Transfusion Reactions: Previous Problems w/ Anesthesia Additional Past Anesthesia/Blood Transfusion Reaction / Comment(s): Woke up du ring last knee surgery. Smoking Status: Current some day smoker - Past Family History Father Family Medical History: Cancer Additional Family Medical History / Comment(s): Prostate Cancer. Brother(s) Additional Family Medical History / Comment(s): Blood clot from surgery. Medications and Allergies Home Medications Medication Instructions Recorded Confirmed Type Apixaban [Eliquis] 2.5 mg PO BID 10/10/18 09/22/23 History Atorvastatin [Lipitor] 40 mg PO Q48H 10/10/18 09/22/23 History Latanoprost/Pf [Latanoprost 0.005% 1 drop RIGHT EYE HS 10/10/18 09/22/23 History Eye Drop] Multivitamins, Thera [Multivitamin 1 tab PO DAILY 10/10/18 09/22/23 History (formulary)] metFORMIN HCL [metFORMIN HCL ER] 750 mg PO BID-W/MEALS 10/10/18 09/22/23 History Donepezil [Aricept] 10 mg PO DAILY 12/27/20 09/22/23 History Calcium 1000mg 1 tab PO DAILY 01/23/23 09/22/23 History Co Q-10 100mg 1 tab PO DAILY 01/23/23 09/22/23 History Zinc Gluconate [Zinc] 50 mg PO DAILY 01/23/23 09/22/23 History Furosemide [Lasix] 20 mg PO DAILY #0 07/23/23 09/22/23 Rx Gabapentin 300 mg PO TID #9 cap 07/23/23 09/22/23 Rx Ascorbic Acid [Vitamin C] 1,000 mg PO DAILY 09/22/23 09/22/23 History Cholecalciferol [Vitamin D3 (25 25 mcg PO DAILY 09/22/23 09/22/23 History Mcg = 1000 Iu)] Ferrous Sulfate [Iron (65 MG 325 mg PO HS 09/22/23 09/22/23 History Elemental)] Fosinopril/Hydrochlorothiazide 1 tab PO DAILY 09/22/23 09/22/23 History [Monopril HCT 10-12.5 mg Tab] Memantine [Namenda] 10 mg PO BID 09/22/23 09/22/23 History Metoprolol Tartrate [Lopressor] 25 mg PO DAILY 09/22/23 09/22/23 History Zolpidem [Ambien] 5 mg PO HS PRN 09/22/23 09/22/23 History traMADol HCL 100 mg PO BID 09/22/23 09/22/23 History Allergies Allergy/AdvReac Type Severity Reaction Status Date / Time Paper Tape Allergy Redness/Itc Uncoded 07/12/23 21:52 erick Physical Exam Vitals: Vital Signs Temp Pulse Resp BP Pulse Ox FiO2 09/22/23 16:05 107 H 22 73/48 99 09/22/23 15:49 104 H 24 77/42 96 09/22/23 15:33 50 09/22/23 15:14 108 H 24 86/56 98 09/22/23 14:30 112 H 24 74/46 98 09/22/23 14:28 50 09/22/23 14:15 126 H 20 83/50 96 50 09/22/23 14:00 66/33 09/22/23 13:45 80/43 09/22/23 13:25 99.5 F 120 H 18 73/39 90 L 09/22/23 13:00 137 H 28 H 93/42 94 L 09/22/23 12:48 131 H 30 H 87/37 93 L 09/22/23 12:22 100.3 F H 163 H 26 H 115/66 93 L Intake and Output 09/22/23 09/22/23 09/22/23 06:59 14:59 22:59 Intake Total 7.5 Output Total 400 Balance 7.5 -400 Intake: Intake, IV Titration 7.5 Amount Diltiazem 125 mg In 7.5 Sodium Chloride 0.9% 100 ml @ 5 MG/HR 5 mls/hr IV .Q24H [facility] Rx#:[id number] Output: Urine 400 Uretheral ([place]) 400 Other: Weight 77.111 kg Results CBC & Chem 7: 09/22/23 12:30 09/22/23 12:30 Labs: Abnormal Lab Results - Last 24 Hours (Table) 04/09/22/23 09/22/23 Range/Units 12:30 12:30 12:30 WBC 17.8 H (3.8-10.6) k/uL RBC 3.51 L (3.80-5.40) m/uL Hgb 10.3 L (11.4-16.0) gm/dL Hct 32.8 L (34.0-46.0) % RDW 16.1 H (11.5-15.5) % Plt Count 145 L D (150-450) k/uL Neutrophils # 16.4 H (1.3-7.7) k/uL Lymphocytes # 0.5 L (1.0-4.8) k/uL Carbon Dioxide 20 L (22-30) mmol/L BUN 56 H (7-17) mg/dL Creatinine 1.31 H (0.52-1.04) mg/dL Glucose 171 H (74-99) mg/dL Plasma Lactic Acid Nino 4.2 H* (0.7-2.0) mmol/L Total Bilirubin 1.7 H (0.2-1.3) mg/dL AST 71 H (14-36) U/L ALT 38 H (4-34) U/L Alkaline Phosphatase 186 H (38-126) U/L Troponin I (0.000-0.034) ng/mL Urine Protein (Negative) Urine Ketones (Negative) Ur Leukocyte Esterase (Negative) Hyaline Casts (0-2) /lpf Urine Mucus (None) /hpf 09/22/23 09/22/23 09/22/23 Range/Units 12:30 13:30 15:19 WBC (3.8-10.6) k/uL RBC (3.80-5.40) m/uL Hgb (11.4-16.0) gm/dL Hct (34.0-46.0) % RDW (11.5-15.5) % Plt Count (150-450) k/uL Neutrophils # (1.3-7.7) k/uL Lymphocytes # (1.0-4.8) k/uL Carbon Dioxide (22-30) mmol/L BUN (7-17) mg/dL Creatinine (0.52-1.04) mg/dL Glucose (74-99) mg/dL Plasma Lactic Acid Nino (0.7-2.0) mmol/L Total Bilirubin (0.2-1.3) mg/dL AST (14-36) U/L ALT (4-34) U/L Alkaline Phosphatase (38-126) U/L Troponin I 0.155 H* 1.430 H* (0.000-0.034) ng/mL Urine Protein Trace H (Negative) Urine Ketones Trace H (Negative) Ur Leukocyte Esterase Trace H (Negative) Hyaline Casts 4 H (0-2) /lpf Urine Mucus Rare H (None) /hpf
--- NOTE | 2023-09-22 16:22 | P.CNPUL ---
History of Present Illness Consult date: 09/22/23 Requesting physician: Elis Schaefer Reason for consult: dyspnea, cough, hypoxemia, pneumonia, abnormal CXR/CT, other Chief complaint: Impending respiratory failure. History of present illness: Pulmonary consult dated September 22, 2023. 88-year-old female who was seen by Dr. Terrazas in the emergency department, for difficulty breathing, and elevated temperature. According to the family, the pa vaishali was fine yesterday, but today, was noted to have a hard time breathing, had some confusion and mental status changes, had very low saturations, blue lips, and generally would just not well. Also, apparently, she has been coughing quite a bit for the last few days. The patient is seen in the emergency department, in the trauma room. A family member is at the bedside. He gives most of the history. The patient is placed on BiPAP, with settings at 10/5 and 50%. The patient did receive a liter of saline, and was on a Cardizem drip at 5 mg an hour, but that was discontinued. The patient is a DO NOT RESUSCITATE patient. The patient has a history of atrial fibrillation, COPD, diabetes, hyperlipidemia, hypertension, dementia, and osteoarthritis. The patient has had a previous transcatheter aortic valve replacement as well. Recently, the patient has been following at the wound clinic for nonhealing leg ulcerations and wounds. Current laboratory data includes a white count of 17.8, hemoglobin 10.3, hematocrit 32.8, and a platelet count of 145,000. Sodium 139, potassium 4.3, chlorides 106, CO2 20, anion gap 13, BUN 56, and creatinine 1.31. Lactic acid initially was 4.2. Repeat was 1.8. Glucose was 171. Troponin was 0.155 and 1.430. N-terminal proBNP is 2020. The patient tested negative for influenza, AMB, RSV, coronavirus. Urine had trace protein, trace ketones, trace leukocyte esterase, but no bacteria. EKG shows atrial fibrillation with a rapid ventricular response, 155 bpm. Chest x-ray shows diffuse haziness, likely consistent with fluid overload/CHF. Review of Systems REVIEW OF SYSTEMS: Fever. CONSTITUTIONAL: Weakness/fatigue. NEUROLOGIC: [ Negative.] HEENT: [ Negative.] CARDIAC: [Negative.] PULMONARY: Cough, shortness of breath. GI: [Negative.] : [Negative.] RHEUMATOLOGIC: [ Negative.] IMMUNOLOGIC: [ Negative.] ENDOCRINE: [Negative. ] DERMATOLOGIC: [Negative.] Past Medical History Past Medical History: Atrial Fibrillation, COPD, Diabetes Mellitus, Hyperlipidemia, Hypertension, Memory Impairment, Osteoarthritis (OA) Additional Past Medical History / Comment(s): possible Hiatal Hernia, left neck mass History of Any Multi-Drug Resistant Organisms: None Reported Past Surgical History: Cardiac Valve Replacement, Cholecystectomy, Orthopedic Surgery Additional Past Surgical History / Comment(s): Right knee surgery X5, Hammer Toe surgery, left knee arthroscopy Past Anesthesia/Blood Transfusion Reactions: Previous Problems w/ Anesthesia Additional Past Anesthesia/Blood Transfusion Reaction / Comment(s): Woke up duri ng last knee surgery. Smoking Status: Current some day smoker - Past Family History Father Family Medical History: Cancer Additional Family Medical History / Comment(s): Prostate Cancer. Brother(s) Additional Family Medical History / Comment(s): Blood clot from surgery. Medications and Allergies Home Medications Medication Instructions Recorded Confirmed Type Apixaban [Eliquis] 2.5 mg PO BID 10/10/18 09/22/23 History Atorvastatin [Lipitor] 40 mg PO Q48H 10/10/18 09/22/23 History Latanoprost/Pf [Latanoprost 0.005% 1 drop RIGHT EYE HS 10/10/18 09/22/23 History Eye Drop] Multivitamins, Thera [Multivitamin 1 tab PO DAILY 10/10/18 09/22/23 History (formulary)] metFORMIN HCL [metFORMIN HCL ER] 750 mg PO BID-W/MEALS 10/10/18 09/22/23 History Donepezil [Aricept] 10 mg PO DAILY 12/27/20 09/22/23 History Calcium 1000mg 1 tab PO DAILY 01/23/23 09/22/23 History Co Q-10 100mg 1 tab PO DAILY 01/23/23 09/22/23 History Zinc Gluconate [Zinc] 50 mg PO DAILY 01/23/23 09/22/23 History Furosemide [Lasix] 20 mg PO DAILY #0 07/23/23 09/22/23 Rx Gabapentin 300 mg PO TID #9 cap 07/23/23 09/22/23 Rx Ascorbic Acid [Vitamin C] 1,000 mg PO DAILY 09/22/23 09/22/23 History Cholecalciferol [Vitamin D3 (25 25 mcg PO DAILY 09/22/23 09/22/23 History Mcg = 1000 Iu)] Ferrous Sulfate [Iron (65 MG 325 mg PO HS 09/22/23 09/22/23 History Elemental)] Fosinopril/Hydrochlorothiazide 1 tab PO DAILY 09/22/23 09/22/23 History [Monopril HCT 10-12.5 mg Tab] Memantine [Namenda] 10 mg PO BID 09/22/23 09/22/23 History Metoprolol Tartrate [Lopressor] 25 mg PO DAILY 09/22/23 09/22/23 History Zolpidem [Ambien] 5 mg PO HS PRN 09/22/23 09/22/23 History traMADol HCL 100 mg PO BID 09/22/23 09/22/23 History Allergies Allergy/AdvReac Type Severity Reaction Status Date / Time Paper Tape Allergy Redness/Itc Uncoded 07/12/23 21:52 erick Physical Exam Osteopathic Statement: *. No significant issues noted on an osteopathic structural exam other than those noted in the History and Physical/Consult. Vitals: Vital Signs Temp Pulse Resp BP Pulse Ox FiO2 09/22/23 16:05 107 H 22 73/48 99 09/22/23 15:49 104 H 24 77/42 96 09/22/23 15:33 50 09/22/23 15:14 108 H 24 86/56 98 09/22/23 14:30 112 H 24 74/46 98 09/22/23 14:28 50 09/22/23 14:15 126 H 20 83/50 96 50 09/22/23 14:00 66/33 09/22/23 13:45 80/43 09/22/23 13:25 99.5 F 120 H 18 73/39 90 L 09/22/23 13:00 137 H 28 H 93/42 94 L 09/22/23 12:48 131 H 30 H 87/37 93 L 09/22/23 12:22 100.3 F H 163 H 26 H 115/66 93 L Intake and Output 09/22/23 09/22/23 09/22/23 06:59 14:59 22:59 Intake Total 7.5 Balance 7.5 Intake: Intake, IV Titration 7.5 Amount Diltiazem 125 mg In 7.5 Sodium Chloride 0.9% 100 ml @ 5 MG/HR 5 mls/hr IV .Q24H [facility] Rx#:[id number] Other: Weight 77.111 kg Patient poorly responsive, does not respond to verbal stimuli, BiPAP mask in place. HEENT examination is grossly unremarkable. Neck supple. Full range of motion. No adenopathy thyromegaly or neck vein distention. Cardiovascular examination reveals an irregular rhythm and rate. S1-S2 normal. No S3 or S4. No discernible murmur noted. Sounds distant. Heart rate 107 bpm. Lungs reveal scattered rhonchi. No wheezes. Breath sounds equal. Saturations are in the mid to high 90s on BiPAP. Abdomen soft without bowel sounds. No masses. Extremities are intact. Chronic venous stasis changes noted. No cyanosis. No clubbing. Skin reveals chronic changes. Neurologic examination reveals the patient to be poorly responsive/nonresponsive. Does not respond to verbal stimuli. Results - Laboratory Findings CBC and BMP: 09/22/23 12:30 09/22/23 12:30 PT/INR, D-dimer PT 10.6 sec (10.0-12.5) 09/22/23 12:30 INR 1.0 (<1.2) 09/22/23 12:30 Abnormal lab findings: Abnormal Labs 09/22/23 09/22/23 09/22/23 12:30 12:30 12:30 WBC 17.8 H RBC 3.51 L Hgb 10.3 L Hct 32.8 L RDW 16.1 H Plt Count 145 L D Neutrophils # 16.4 H Lymphocytes # 0.5 L Carbon Dioxide 20 L BUN 56 H Creatinine 1.31 H Glucose 171 H Plasma Lactic Acid Nino 4.2 H* Total Bilirubin 1.7 H AST 71 H ALT 38 H Alkaline Phosphatase 186 H Troponin I Urine Protein Urine Ketones Ur Leukocyte Esterase Hyaline Casts Urine Mucus 09/22/23 09/22/23 09/22/23 12:30 13:30 15:19 WBC RBC Hgb Hct RDW Plt Count Neutrophils # Lymphocytes # Carbon Dioxide BUN Creatinine Glucose Plasma Lactic Acid Nino Total Bilirubin AST ALT Alkaline Phosphatase Troponin I 0.155 H* 1.430 H* Urine Protein Trace H Urine Ketones Trace H Ur Leukocyte Esterase Trace H Hyaline Casts 4 H Urine Mucus Rare H - Diagnostic Findings Chest x-ray: image reviewed Assessment and Plan Assessment: Acute hypoxemic respiratory failure, possibly multifactorial, likely related to fluid overload, and or pneumonia. Rule out non-ST segment elevation myocardial infarction. Atrial fibrillation with RVR. Cough and fever, rule out pneumonia. Mild nonanion gap metabolic acidosis. Mild lactic acidosis. History of hyperlipidemia. Diabetes mellitus. Prior history of transcatheter aortic valve replacement. History of dementia. History of COPD. History of hyperlipidemia. History of hypertension. Chronic lower extremity wounds. Plan: Plan dated September 22, 2023. The patient is seen in the emergency department. Family members at bedside. The patient is currently on BiPAP. The patient did receive a liter of saline. The patient was on a Cardizem drip, but that has been turned off. The patient may have sustained a non-ST segment elevation myocardial infarction. She came in with atrial fibrillation with rapid ventricular response, and a chest x-ray which suggest fluid overload. BNP was somewhat elevated. The patient was placed on antibiotics in the form of vancomycin and Zosyn. A procalcitonin level was ordered. Labs, x-rays, medications are reviewed. Prognosis is poor. The patient is a DO NOT RESUSCITATE patient. That order was placed down. Time with Patient: Greater than 30
[2023-09-22] MEDS: HEPARIN SODIUM 1,000 UN/ML (10ML VL) IV ONE (16:24)
[2023-09-22] MEDS: HEPARIN SOD,PORK IN 0.45% NACL 25,000 UNIT in 0.45% NACL 1 250ML.BAG IV SCH (16:25)
[2023-09-22 16:28] LABS: Glucose,Whole Blood 159 mg/dL (70-110)
--- NOTE | 2023-09-22 17:16 | US ---
EXAMINATION TYPE: US gallbladder DATE OF EXAM: 09/22/2023 COMPARISON: NONE CLINICAL INDICATION: Female, 88 years old with history of transaminitis; gallbladder removed TECHNIQUE: Multiple sonographic images of the right upper quadrant are obtained. FINDINGS: EXAM MEASUREMENTS: Liver Length: 22.63 cm Gallbladder Wall: Surgically absent CBD: Obscured by bowel gas. Right Kidney: obscured by bowel gas. IND[employer]ER NOTES: Pancreas: Obscured by bowel gas Liver: Increased attenuation limited due to bowel gas hepatomegaly. Gallbladder: Surgically absent Evidence for sonographic Danielson's sign: No CBD: Obscured by overlying bowel gas Right Kidney: Obscured by overlying bowel gas IMPRESSION: 1. Hepatomegaly
--- NOTE | 2023-09-22 17:17 | XR ---
EXAMINATION TYPE: XR chest 1V portable DATE OF EXAM: 09/22/2023 COMPARISON: 09/22/2023 INDICATION: Pneumonia and difficulty in breathing cough TECHNIQUE: Single frontal view of the chest is obtained. Patient is rotated to the right. FINDINGS: The heart size is enlarged. The pulmonary vasculature is normal. No suspicious infiltrates are evident. Degenerative changes are at the right shoulder. IMPRESSION: 1. Cardiomegaly
[2023-09-22 17:23] LABS: Glucose,Whole Blood 160 mg/dL (70-110)
[2023-09-22] MEDS: methylPREDNISolone SOD SUCCI 125 MG/2 ML VIAL IV SCH (18:04)
[2023-09-22] MEDS: FORMOTEROL FUMARATE 20 MCG/2 ML NEBU INHALATION SCH (20:43)
[2023-09-22] MEDS: BUDESONIDE 1 MG/2 ML NEBU INHALATION SCH (20:43)
[2023-09-22] MEDS: IPRATROPIUM-ALBUTEROL 3 ML NEB INHALATION SCH (20:43)
[2023-09-22] MEDS: PIPERACILLIN-TAZOBACTAM 3.375 GM in SODIUM CHLORIDE 0.9% 100 ML IVPB SCH (20:58)
[2023-09-22 23:09] LABS: Glucose,Whole Blood 234 mg/dL (70-110)
[2023-09-23 00:29] LABS: ABG Base Excess -2.8 mmol/L; ABG HCO3 23 mmol/L (21-25); ABG Oxygen Saturation 99.8 % (94-97); ABG PCO2 45 mmHg (35-45); ABG PH 7.32 (7.35-7.45); ABG PO2 200 mmHg (83-108); ABG TCO2 25 mmol/L (19-24); Allen Test Performed? Yes
--- NOTE | 2023-09-23 01:45 | CT ---
EXAM: CT Head Without Intravenous Contrast CLINICAL HISTORY: ITS.REASON CT Reason: ams TECHNIQUE: Axial computed tomography images of the head/brain without intravenous contrast. CTDI is 49.1 mGy and DLP is 1138.4 mGy-cm. This CT exam was performed using one or more of the following dose reduction techniques: automated exposure control, adjustment of the mA and/or kV according to patient size, and/or use of iterative reconstruction technique. COMPARISON: No relevant prior studies available. FINDINGS: Brain: No hemorrhage, herniation, or mass effect. Chronic microvascular ischemic changes. Prior right basal ganglia infarct. Ventricles: No hydrocephalus. Age related cerebral volume loss. Bones/joints: Unremarkable. Soft tissues: Unremarkable. Sinuses: No air fluid levels. Mastoid air cells: Clear. IMPRESSION: No acute hemorrhage, hydrocephalus, or mass effect.
[2023-09-23 06:07] LABS: Anisocytosis Slight; Basophils % (A) 0 %; Eosinophils % (A) 0 %; HCT 32.2 % (34.0-46.0); HGB 9.8 gm/dL (11.4-16.0); Hypochromasia Slight; Lymphocytes # (A) 0.5 k/uL (1.0-4.8); Lymphocytes % (A) 3 %; MCH 28.6 pg (25.0-35.0); MCHC 30.5 g/dL (31.0-37.0); Mean Platelet Volume 9.3; Monocytes # (A) 0.2 k/uL (0-1.0); Monocytes % (A) 1 %; Neutrophils # (A) 18.8 k/uL (1.3-7.7); Neutrophils % (A) 96 %; Platelet Count 113 k/uL (150-450); RBC 3.43 m/uL (3.80-5.40); RDW 16.3 % (11.5-15.5); WBC 19.6 k/uL (3.8-10.6)
[2023-09-23 06:23] LABS: INR 1.1 (<1.2); Prothrombin Time 12.2 sec (10.0-12.5)
[2023-09-23 07:06] LABS: ALT 72 U/L (4-34); AST 108 U/L (14-36); African American GFR (CKD) 26 (>60 ml/min/1.73 sqM); Albumin 3.5 g/dL (3.5-5.0); Alkaline Phosphatase 154 U/L (38-126); Anion Gap 11 mmol/L; Blood Urea Nitrogen 65 mg/dL (7-17); Calcium 8.5 mg/dL (8.4-10.2); Carbon Dioxide 22 mmol/L (22-30); Chloride 109 mmol/L (98-107); Glucose 220 mg/dL (74-99); Non-African American GFR(CKD) 22 (>60 ml/min/1.73 sqM); Potassium 4.1 mmol/L (3.5-5.1); Sodium 142 mmol/L (137-145); Total Bilirubin 1.2 mg/dL (0.2-1.3); Total Protein 6.6 g/dL (6.3-8.2)
--- NOTE | 2023-09-23 07:31 | XR ---
EXAMINATION TYPE: XR chest 1V portable DATE OF EXAM: 09/23/2023 HISTORY: Shortness of breath. COMPARISON: 09/22/2023 TECHNIQUE: Single view of the chest is submitted. FINDINGS: Demonstrated are scattered senescent parenchymal change. There is no evidence for focal infiltrate. The heart is stable. Hilar and mediastinal structures are within normal limits. Degenerative changes are seen of the dorsal spine. IMPRESSION: 1. Chronic changes without evidence for acute pulmonary disease.
[2023-09-23 08:22] LABS: Glucose,Whole Blood 232 mg/dL (70-110)
[2023-09-23] MEDS ORDERED: ENOXAPARIN 40 MG/0.4 ML SYRINGE SQ SCH (09:00)
[2023-09-23] MEDS ORDERED: DEXTROSE 50% SYRINGE 50 ML IVP PRN ×2 (09:45)
[2023-09-23] MEDS: FUROSEMIDE 10 MG/ML 4 ML VIAL IV STA (09:52)
[2023-09-23] MEDS: PANTOPRAZOLE 40 MG/10 ML VIAL IVP SCH (09:53)
[2023-09-23] MEDS: SODIUM CHLORIDE 0.9% 1,000 ML IV SCH (09:53)
--- NOTE | 2023-09-23 09:59 | P.CONS ---
History of Present Illness - Reason for Consult Consult date: 09/23/23 wound care - History of Present Illness This is an 88-year-old patient known to the wound care center with a nonhealing ulceration to the right anterior lower extremity. Ulceration has fat layer exposure. She has been treated previously for Pseudomonas however the last few weeks the ulceration is showing improvement in size and morphology. At this time patient is in a palliative care pathway where she is seen twice a month. Prognosis for healing of the wound is guarded. Patient and family is aware of the plan of care. Utilization of Santyl to the site. Patient utilizes compression pumps at home twice a day.Original cause of wound was Gradually Appeared. The date acquired was: 09/12/2021. The wound has been in treatment 103 weeks. The wound is currently classified as a Full Thickness With Exposed Support Structures wound with etiology of Venous Leg Ulcer and is located on the Right Ankle. The wound measures 4.3cm length x 2.4cm width x 0.3cm depth; 8.105cm^2 area and 2.432cm^3 volume. There is Fat Layer (Subcutaneous Tissue) exposed. There is no tunneling or undermining noted. There is a large amount of serous drainage noted. Foul odor after cleansing was noted. The wound margin is distinct with the outline attached to the wound base. There is medium (34-66%) red granulation within the wound bed. There is a medium (34-66%) amount of necrotic tissue within the wound bed. The periwound skin appearance exhibited: Excoriation, Scarring, Dry/Scaly, Maceration, Hemosiderin Staining. The periwound skin appearance did not exhibit: Callus, Crepitus, Induration, Rash, Atrophie [place], Cyanosis, Ecchymosis, Mottled, Pallor, Rubor, Erythema. Periwound temperature was noted as No Abnormality. Review Of Systems: Constitutional: No fever, no chills, no night sweats. No weight change. No weakness, fatigue or lethargy. No daytime sleepiness. Integumentary:reports wounds, no lesions. No rash or pruritus. No unusual bruising. No change in hair or nails. Physical exam: General Appearance: Alert, cooperative, no distress, appears stated age. Skin: See HPI all other Skin color, texture, tugor normal, no rashes or lesions. Neurologic: Alert oriented x3 Assessment: 1. Chronic venous hypertension with ulcer and inflammation of right lower extremity 2. 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 Apply Santyl, saline moist gauze, dry gauze, rolled gauze and secure with paper tape. Cover with Tubigrip. Change daily. Elevate leg at least 30 minutes 3 times a day above heart.Will return to the wound care center September 30 at 1245. Thank you for the consultation any questions please contact the wound care center DNP note has been reviewed and discussed with Dr. Zavala and the impression and plan of care has been directed as dictated. Past Medical History Past Medical History: Atrial Fibrillation, COPD, Diabetes Mellitus, Hyperlipidemia, Hypertension, Memory Impairment, Osteoarthritis (OA) Additional Past Medical History / Comment(s): possible Hiatal Hernia, left neck mass History of Any Multi-Drug Resistant Organisms: None Reported Past Surgical History: Cardiac Valve Replacement, Cholecystectomy, Orthopedic Surgery Additional Past Surgical History / Comment(s): Right knee surgery X5, Hammer Toe surgery, left knee arthroscopy Past Anesthesia/Blood Transfusion Reactions: Previous Problems w/ Anesthesia Additional Past Anesthesia/Blood Transfusion Reaction / Comm: Woke up during last knee surgery. Smoking Status: Current some day smoker - Past Family History Father Family Medical History: Cancer Additional Family Medical History / Comment(s): Prostate Cancer. Brother(s) Additional Family Medical History / Comment(s): Blood clot from surgery. Medications and Allergies Home Medications Medication Instructions Recorded Confirmed Type Apixaban [Eliquis] 2.5 mg PO BID 10/10/18 09/22/23 History Atorvastatin [Lipitor] 40 mg PO Q48H 10/10/18 09/22/23 History Latanoprost/Pf [Latanoprost 0.005% 1 drop RIGHT EYE HS 10/10/18 09/22/23 History Eye Drop] Multivitamins, Thera [Multivitamin 1 tab PO DAILY 10/10/18 09/22/23 History (formulary)] metFORMIN HCL [metFORMIN HCL ER] 750 mg PO BID-W/MEALS 10/10/18 09/22/23 History Donepezil [Aricept] 10 mg PO DAILY 12/27/20 09/22/23 History Calcium 1000mg 1 tab PO DAILY 01/23/23 09/22/23 History Co Q-10 100mg 1 tab PO DAILY 01/23/23 09/22/23 History Zinc Gluconate [Zinc] 50 mg PO DAILY 01/23/23 09/22/23 History Furosemide [Lasix] 20 mg PO DAILY #0 07/23/23 09/22/23 Rx Gabapentin 300 mg PO TID #9 cap 07/23/23 09/22/23 Rx Ascorbic Acid [Vitamin C] 1,000 mg PO DAILY 09/22/23 09/22/23 History Cholecalciferol [Vitamin D3 (25 25 mcg PO DAILY 09/22/23 09/22/23 History Mcg = 1000 Iu)] Ferrous Sulfate [Iron (65 MG 325 mg PO HS 09/22/23 09/22/23 History Elemental)] Fosinopril/Hydrochlorothiazide 1 tab PO DAILY 09/22/23 09/22/23 History [Monopril HCT 10-12.5 mg Tab] Memantine [Namenda] 10 mg PO BID 09/22/23 09/22/23 History Metoprolol Tartrate [Lopressor] 25 mg PO DAILY 09/22/23 09/22/23 History Zolpidem [Ambien] 5 mg PO HS PRN 09/22/23 09/22/23 History traMADol HCL 100 mg PO BID 09/22/23 09/22/23 History Allergies Allergy/AdvReac Type Severity Reaction Status Date / Time Paper Tape Allergy Redness/Itc Uncoded 07/12/23 21:52 erick Physical Exam Vitals: Vital Signs Temp Pulse Pulse Resp BP Pulse Ox FiO2 09/23/23 09:21 96 09/23/23 09:07 95 09/23/23 08:57 96 09/23/23 07:00 89 17 94/55 98 09/23/23 06:45 86 17 94/55 98 09/23/23 06:30 84 17 95/55 98 09/23/23 06:15 78 15 98/56 100 09/23/23 06:00 84 16 85/75 99 09/23/23 05:45 87 14 90/59 100 09/23/23 05:30 92 29 H 107/60 100 09/23/23 05:15 84 16 107/65 99 09/23/23 05:00 96 16 100/57 100 09/23/23 04:52 84 09/23/23 04:45 89 19 112/59 100 09/23/23 04:41 102 H 35 09/23/23 04:30 87 17 117/71 100 09/23/23 04:15 86 15 102/60 98 09/23/23 04:00 84 91 18 100/57 100 09/23/23 03:45 99 19 102/57 100 09/23/23 03:30 97.1 F L 85 17 93/61 100 09/23/23 03:15 76 17 97/61 99 09/23/23 03:00 83 17 96/64 100 30 09/23/23 02:45 82 17 101/54 100 09/23/23 02:30 78 22 91/54 99 09/23/23 02:15 80 17 112/72 100 09/23/23 02:00 93 16 113/61 100 30 09/23/23 01:00 92 14 115/67 100 09/23/23 00:45 85 09/23/23 00:35 80 35 09/23/23 00:00 82 91 19 115/67 100 09/22/23 23:00 97.7 F 98 22 104/70 100 50 09/22/23 22:26 89 22 103/57 100 09/22/23 21:08 91 09/22/23 21:03 87 20 94/49 100 09/22/23 20:56 86 09/22/23 20:48 50 09/22/23 20:47 94 09/22/23 20:33 98 19 94/52 09/22/23 20:21 87/52 09/22/23 20:12 98.2 F 100 24 113/54 100 09/22/23 18:45 84 20 96/56 100 09/22/23 18:30 106 H 18 98/71 100 09/22/23 18:15 101 H 20 92/54 100 09/22/23 18:00 99.0 F 98 20 90/56 100 09/22/23 17:45 101 H 19 90/64 100 09/22/23 17:41 108 H 22 93/54 99 09/22/23 17:30 89 19 93/54 99 09/22/23 17:26 98.8 F 09/22/23 17:15 101 H 22 90/61 98 04/23/24 17:00 99.2 F 97 21 91/58 99 09/22/23 16:45 99 22 96/55 99 09/22/23 16:30 100 20 82/57 98 09/22/23 16:15 112 H 26 H 81/51 99 09/22/23 16:05 107 H 22 73/48 99 09/22/23 15:49 104 H 24 77/42 96 09/22/23 15:33 50 09/22/23 15:14 108 H 24 86/56 98 09/22/23 14:30 112 H 24 74/46 98 09/22/23 14:28 50 09/22/23 14:15 126 H 20 83/50 96 50 09/22/23 14:00 66/33 09/22/23 13:45 80/43 09/22/23 13:25 99.5 F 120 H 18 73/39 90 L 09/22/23 13:00 137 H 28 H 93/42 94 L 09/22/23 12:48 131 H 30 H 87/37 93 L 09/22/23 12:22 100.3 F H 163 H 26 H 115/66 93 L Intake and Output 09/22/23 09/23/23 09/23/23 22:59 06:59 14:59 Intake Total 49.408 229.565 Output Total 400 495 35 Balance -350.592 -265.435 -35 Intake: Intake, IV Titration 49.408 229.565 Amount Norepinephrine 4 mg In 49.408 129.565 Sodium Chloride 0.9% 250 ml @ 0.03 MCG/KG/MIN 8. 814 mls/hr IV .Q24H ONE Rx#:[id number] Piperacillin-Tazobactam 3 100 .375 gm In Sodium Chloride 0.9% 100 ml @ 25 mls/hr IVPB Q8H [facility] Rx#: [id number] Output: Urine 400 495 35 Uretheral ([place]) 400 Other: # Bowel Movements 1 Weight 83.6 kg 85.8 kg Results CBC & Chem 7: 09/23/23 05:46 09/23/23 05:46 Labs: Abnormal Lab Results - Last 24 Hours (Table) 09/22/23 09/22/23 09/22/23 Range/Units 12:30 12:30 12:30 WBC 17.8 H (3.8-10.6) k/uL RBC 3.51 L (3.80-5.40) m/uL Hgb 10.3 L (11.4-16.0) gm/dL Hct 32.8 L (34.0-46.0) % MCHC (31.0-37.0) g/dL RDW 16.1 H (11.5-15.5) % Plt Count 145 L D (150-450) k/uL Neutrophils # 16.4 H (1.3-7.7) k/uL Lymphocytes # 0.5 L (1.0-4.8) k/uL APTT (22.0-30.0) sec ABG pH (7.35-7.45) ABG pO2 (83-108) mmHg ABG Total CO2 (19-24) mmol/L ABG O2 Saturation (94-97) % Chloride (98-107) mmol/L Carbon Dioxide 20 L (22-30) mmol/L BUN 56 H (7-17) mg/dL Creatinine 1.31 H (0.52-1.04) mg/dL Glucose 171 H (74-99) mg/dL POC Glucose (mg/dL) (70-110) mg/dL Plasma Lactic Acid Nino 4.2 H* (0.7-2.0) mmol/L Total Bilirubin 1.7 H (0.2-1.3) mg/dL AST 71 H (14-36) U/L ALT 38 H (4-34) U/L Alkaline Phosphatase 186 H (38-126) U/L Troponin I (0.000-0.034) ng/mL Procalcitonin (0.02-0.09) ng/mL Urine Protein (Negative) Urine Ketones (Negative) Ur Leukocyte Esterase (Negative) Hyaline Casts (0-2) /lpf Urine Mucus (None) /hpf 09/22/23 09/22/23 09/22/23 Range/Units 12:30 13:30 15:19 WBC (3.8-10.6) k/uL RBC (3.80-5.40) m/uL Hgb (11.4-16.0) gm/dL Hct (34.0-46.0) % MCHC (31.0-37.0) g/dL RDW (11.5-15.5) % Plt Count (150-450) k/uL Neutrophils # (1.3-7.7) k/uL Lymphocytes # (1.0-4.8) k/uL APTT (22.0-30.0) sec ABG pH (7.35-7.45) ABG pO2 (83-108) mmHg ABG Total CO2 (19-24) mmol/L ABG O2 Saturation (94-97) % Chloride (98-107) mmol/L Carbon Dioxide (22-30) mmol/L BUN (7-17) mg/dL Creatinine (0.52-1.04) mg/dL Glucose (74-99) mg/dL POC Glucose (mg/dL) (70-110) mg/dL Plasma Lactic Acid Nino (0.7-2.0) mmol/L Total Bilirubin (0.2-1.3) mg/dL AST (14-36) U/L ALT (4-34) U/L Alkaline Phosphatase (38-126) U/L Troponin I 0.155 H* 1.430 H* (0.000-0.034) ng/mL Procalcitonin (0.02-0.09) ng/mL Urine Protein Trace H (Negative) Urine Ketones Trace H (Negative) Ur Leukocyte Esterase Trace H (Negative) Hyaline Casts 4 H (0-2) /lpf Urine Mucus Rare H (None) /hpf 09/22/23 09/22/23 09/22/23 Range/Units 16:22 16:26 17:19 WBC (3.8-10.6) k/uL RBC (3.80-5.40) m/uL Hgb (11.4-16.0) gm/dL Hct (34.0-46.0) % MCHC (31.0-37.0) g/dL RDW (11.5-15.5) % Plt Count (150-450) k/uL Neutrophils # (1.3-7.7) k/uL Lymphocytes # (1.0-4.8) k/uL APTT (22.0-30.0) sec ABG pH (7.35-7.45) ABG pO2 (83-108) mmHg ABG Total CO2 (19-24) mmol/L ABG O2 Saturation (94-97) % Chloride (98-107) mmol/L Carbon Dioxide (22-30) mmol/L BUN (7-17) mg/dL Creatinine (0.52-1.04) mg/dL Glucose (74-99) mg/dL POC Glucose (mg/dL) 159 H 160 H (70-110) mg/dL Plasma Lactic Acid Nino (0.7-2.0) mmol/L Total Bilirubin (0.2-1.3) mg/dL AST (14-36) U/L ALT (4-34) U/L Alkaline Phosphatase (38-126) U/L Troponin I (0.000-0.034) ng/mL Procalcitonin 0.54 H (0.02-0.09) ng/mL Urine Protein (Negative) Urine Ketones (Negative) Ur Leukocyte Esterase (Negative) Hyaline Casts (0-2) /lpf Urine Mucus (None) /hpf 09/22/23 09/22/23 09/22/23 Range/Units 18:29 21:34 23:08 WBC (3.8-10.6) k/uL RBC (3.80-5.40) m/uL Hgb (11.4-16.0) gm/dL Hct (34.0-46.0) % MCHC (31.0-37.0) g/dL RDW (11.5-15.5) % Plt Count (150-450) k/uL Neutrophils # (1.3-7.7) k/uL Lymphocytes # (1.0-4.8) k/uL APTT 41.2 H (22.0-30.0) sec ABG pH (7.35-7.45) ABG pO2 (83-108) mmHg ABG Total CO2 (19-24) mmol/L ABG O2 Saturation (94-97) % Chloride (98-107) mmol/L Carbon Dioxide (22-30) mmol/L BUN (7-17) mg/dL Creatinine (0.52-1.04) mg/dL Glucose (74-99) mg/dL POC Glucose (mg/dL) 234 H (70-110) mg/dL Plasma Lactic Acid Nino (0.7-2.0) mmol/L Total Bilirubin (0.2-1.3) mg/dL AST (14-36) U/L ALT (4-34) U/L Alkaline Phosphatase (38-126) U/L Troponin I 2.910 H* (0.000-0.034) ng/mL Procalcitonin (0.02-0.09) ng/mL Urine Protein (Negative) Urine Ketones (Negative) Ur Leukocyte Esterase (Negative) Hyaline Casts (0-2) /lpf Urine Mucus (None) /hpf 09/23/23 09/23/23 09/23/23 Range/Units 00:22 05:46 05:46 WBC 19.6 H (3.8-10.6) k/uL RBC 3.43 L (3.80-5.40) m/uL Hgb 9.8 L (11.4-16.0) gm/dL Hct 32.2 L (34.0-46.0) % MCHC 30.5 L (31.0-37.0) g/dL RDW 16.3 H (11.5-15.5) % Plt Count 113 L (150-450) k/uL Neutrophils # 18.8 H (1.3-7.7) k/uL Lymphocytes # 0.5 L (1.0-4.8) k/uL APTT (22.0-30.0) sec ABG pH 7.32 L (7.35-7.45) ABG pO2 200 H (83-108) mmHg ABG Total CO2 25 H (19-24) mmol/L ABG O2 Saturation 99.8 H (94-97) % Chloride 109 H (98-107) mmol/L Carbon Dioxide (22-30) mmol/L BUN 65 H (7-17) mg/dL Creatinine 1.98 H (0.52-1.04) mg/dL Glucose 220 H (74-99) mg/dL POC Glucose (mg/dL) (70-110) mg/dL Plasma Lactic Acid Nino (0.7-2.0) mmol/L Total Bilirubin (0.2-1.3) mg/dL AST 108 H (14-36) U/L ALT 72 H (4-34) U/L Alkaline Phosphatase 154 H (38-126) U/L Troponin I (0.000-0.034) ng/mL Procalcitonin (0.02-0.09) ng/mL Urine Protein (Negative) Urine Ketones (Negative) Ur Leukocyte Esterase (Negative) Hyaline Casts (0-2) /lpf Urine Mucus (None) /hpf 09/23/23 09/23/23 Range/Units 08:20 08:21 WBC (3.8-10.6) k/uL RBC (3.80-5.40) m/uL Hgb (11.4-16.0) gm/dL Hct (34.0-46.0) % MCHC (31.0-37.0) g/dL RDW (11.5-15.5) % Plt Count (150-450) k/uL Neutrophils # (1.3-7.7) k/uL Lymphocytes # (1.0-4.8) k/uL APTT 38.5 H (22.0-30.0) sec ABG pH (7.35-7.45) ABG pO2 (83-108) mmHg ABG Total CO2 (19-24) mmol/L ABG O2 Saturation (94-97) % Chloride (98-107) mmol/L Carbon Dioxide (22-30) mmol/L BUN (7-17) mg/dL Creatinine (0.52-1.04) mg/dL Glucose (74-99) mg/dL POC Glucose (mg/dL) 232 H (70-110) mg/dL Plasma Lactic Acid Nino (0.7-2.0) mmol/L Total Bilirubin (0.2-1.3) mg/dL AST (14-36) U/L ALT (4-34) U/L Alkaline Phosphatase (38-126) U/L Troponin I (0.000-0.034) ng/mL Procalcitonin (0.02-0.09) ng/mL Urine Protein (Negative) Urine Ketones (Negative) Ur Leukocyte Esterase (Negative) Hyaline Casts (0-2) /lpf Urine Mucus (None) /hpf Assessment and Plan (1) Chronic venous hypertension (idiopathic) with ulcer and inflammation of right lower extremity Current Visit: No Status: Acute Code(s): I87.331 - CHRONIC VENOUS HTN W ULCER AND INFLAMMATION OF R LOW EXTREM SNOMED Code(s): 320090890095039 (2) Non-pressure chronic ulcer of other part of right lower leg with fat layer exposed Current Visit: No Status: Acute Code(s): L97.812 - NON-PRS CHRONIC ULCER OTH PRT R LOW LEG W FAT LAYER EXPOSED SNOMED Code(s): 67607396727690345
[2023-09-23] MEDS: HEPARIN SODIUM 1,000 UN/ML (10ML VL) IV PRN (10:35)
--- NOTE | 2023-09-23 11:37 | P.PN ---
Subjective Progress Note Date: 09/23/23 88 year old F with PMH diabetes mellitus type 2 with peripheral neuropathy, chronic A-fib on Eliquis, COPD, hypertension, dyslipidemia, and chronic right lower extremity nonhealing ulcer who presented to the emergency department due to confusion, fever and hypoxia. Patient is currently on BiPAP and majority of history is obtained from the Son. Patient was at her usual state of health yesterday besides a dry cough she has been experiencing over the past week. This morning she was found incoherent, cyanotic at the lips and clammy. She was recently hospitalized for similar symptoms from 07/12-07/23 found of have septic shock from group B strep bacteremia thought to be from an infected RLE ulcer requiring pressors. Her PCP is Dr. Quesada and her Doctor Of Naturopathic Medicine is Dr. Crouch. In the ED, she underwent extensive evaluation. BP 115/66, HR 163, T 100.3F, RR 26, 93% on 6L NC. CBC, Coag panel, CMP was done which showed WBC 17.8, Hg 10.3, Hct 32.8, Plt 145, bicarb 20, BUN 56, Cr 1.31, glu 171, T. bili 1.7, AST 71, ALT 38, alk phos 186. Lactic acid 4.2. Troponin 0.155, 1.43. EKG showed atrial fibrillation with RVR LBBB ventricular rate of 155. BNP 2020. COVID, RSV, Flu negative. UA trace ketones, trace LE, < 1 WBC. CXR showed signs of pulmonary venous congestion. She was given 2L NS bolus and given a dose of Cardizem IV. Her BP dropped as low as 66/33, she was given a dose of Hydrocortisone 100 mg IV. She was also started on BiPAP. Patient is admitted for atrial fibrillation, acute hypoxic respiratory failure and septic shock. Patient was started on Levophed, Vancomycin and Zosyn. Blood and urine culture was collected. 09/22 Patient was seen and examined. Much more awake and alert. BP 110/59, HR 98, RR 19, 96% on 3L. Currently on Leveophed at 0.1 mcg/kg/min. Maintained on heparin drip at 12 units/kg/hr. Antibiotics include Vancomycin and Zosyn. CBC WBC 19.6, Hg 9.8, Hct 32.2, Plt 113. ABG pH 7.32, pCO2 45. CMP Cl 109, BUN 56, Cr 1.98, glu 220, AST 108, ALT 72, alk phos 154. Troponin 2.91. CT brain negative for acute pathology. GB and Liver US shows hepatomegaly. Repeat EKG shows A-Fib with intraventricular conduction delay. CXR done this morning shows consistent pulmonary vascular congestion. Lasix 40 mg IV x 1 is ordered today. General: non toxic, no distress, appears at stated age Derm: warm, dry Head: atraumatic, normocephalic, symmetric Eyes: EOMI, no lid lag, pale sclera Mouth: no lip lesion, mucus membranes moist Cardiovascular: S1S2 irreg, no murmur Lungs: Decreased BS bilateral, no rhonchi, + rales , no accessory muscle use Ext: no gross muscle atrophy, no edema, no contractures, RLE ulcer without erythema or drainage Neuro: moving all 4 extremities Psych: Alert, oriented, appropriate affect Based on my assessment of this patient, this patient meets a high complexity level of care. Patient has an acute diagnosis of acute hypoxic respiratory failure, AFib RVR meeting criteria for septic shock that poses a threat to life or bodily function. Acute hypoxic respiratory failure Acute metabolic encephalopathy Atrial fibrillation with RVR: Cardizem drip discontinued due to hypotension. Start amiodarone drip if necessary. Cardiology consulted. Pulmonary vascular congestion: Judicious use of fluid given pulmonary vascular congestion and need for BiPAP since patient is DNR/DNI. Echocardiogram ordered. Cardiology consulted. Septic shock unknown etiology: 2L NS fluid challenge in the ED. Previously admitted for group B strep bacteremia thought to be related to RLE ulcer. Vancomycin dosed per pharmacy and Zosyn 3.375 g IV TID (D2). Blood culture ordered. Gallbladder US shows hepatomegaly. Telemetry monitoring. Judicious use of fluid given pulmonary vascular congestion and need for BiPAP since patient is DNR/DNI. Start NS at 10 cc/hr. ID consulted. NSTEMI: Likely Type II DC. Low dose heparin drip. Echocardiogram ordered. Cardiology consulted. MAE on CKD: Likely prerenal. Patient is on Levophed. Vancomycin is toxic. IV hydration as above. Transaminitis: GB and liver US as above. Diabetes mellitus: Accuchecks ACHS. COPD not in acute exacerbation: SoluMedrol 60 mg IV Q6H. DuoNeb Q4H scheduled. Pulmicort 1 mg INH BID. Pulmonary consulted. Hypertension: Hold Metoprolol and Lasix due to septic shock. Dyslipidemia: Lipitor 40 mg PO Q2D when able to PO. RLE nonhealing ulcer: Wound care consult. CODE STATUS: NO CODE. DVT Prophylaxis: Heparin drip. GI Prophylaxis: Protonix IV. Designated medical POA if patient is not able to make medical decisions for themselves: Son I have reviewed the following publicity consultant notes: Pulmonary note. I have reviewed the results of the following tests: CBC, CMP, ABG, CT brain, Troponin, GB + Liver US. I have ordered the following tests: Pending: BCx, UCx, Echo. CBC, BMP, Mag ordered for tomorrow. I have discussed the care of this patient with the following independent historian: ABBI. Son I have independently interpreted the following test below: CXR. I have discussed the management of this patient with the following physician: Objective - Vital Signs Vital signs: Vital Signs Temp 97.1 F L 09/23/23 03:30 Pulse 89 09/23/23 07:00 Resp 17 09/23/23 07:00 BP 94/55 09/23/23 07:00 Pulse Ox 98 09/23/23 07:00 FiO2 35 09/23/23 04:41 Intake & Output 09/22/23 09/23/23 09/23/23 18:59 06:59 18:59 Intake Total 10.879 275.594 Output Total 400 495 35 Balance -389.121 -219.406 -35 Weight 83.6 kg 85.8 kg Intake: Intake, IV Titration 10.879 275.594 Amount Diltiazem 125 mg In 7.5 Sodium Chloride 0.9% 100 ml @ 5 MG/HR 5 mls/hr IV .Q24H [facility] Rx#:[id number] Norepinephrine 4 mg In 3.379 175.594 Sodium Chloride 0.9% 250 ml @ 0.03 MCG/KG/MIN 8. 814 mls/hr IV .Q24H [facility] Rx#:[id number] Piperacillin-Tazobactam 3 100 .375 gm In Sodium Chloride 0.9% 100 ml @ 25 mls/hr IVPB Q8H [facility] Rx#: [id number] Output: Urine 400 495 35 Uretheral ([place]) 400 Other: # Bowel Movements 1 - Labs CBC & Chem 7: 09/23/23 05:46 09/23/23 05:46 Labs: Abnormal Lab Results - Last 24 Hours (Table) 09/22/23 09/22/23 09/22/23 Range/Units 12:30 12:30 12:30 WBC 17.8 H (3.8-10.6) k/uL RBC 3.51 L (3.80-5.40) m/uL Hgb 10.3 L (11.4-16.0) gm/dL Hct 32.8 L (34.0-46.0) % MCHC (31.0-37.0) g/dL RDW 16.1 H (11.5-15.5) % Plt Count 145 L D (150-450) k/uL Neutrophils # 16.4 H (1.3-7.7) k/uL Lymphocytes # 0.5 L (1.0-4.8) k/uL APTT (22.0-30.0) sec ABG pH (7.35-7.45) ABG pO2 (83-108) mmHg ABG Total CO2 (19-24) mmol/L ABG O2 Saturation (94-97) % Chloride (98-107) mmol/L Carbon Dioxide 20 L (22-30) mmol/L BUN 56 H (7-17) mg/dL Creatinine 1.31 H (0.52-1.04) mg/dL Glucose 171 H (74-99) mg/dL POC Glucose (mg/dL) (70-110) mg/dL Plasma Lactic Acid Nino 4.2 H* (0.7-2.0) mmol/L Total Bilirubin 1.7 H (0.2-1.3) mg/dL AST 71 H (14-36) U/L ALT 38 H (4-34) U/L Alkaline Phosphatase 186 H (38-126) U/L Troponin I (0.000-0.034) ng/mL Procalcitonin (0.02-0.09) ng/mL Urine Protein (Negative) Urine Ketones (Negative) Ur Leukocyte Esterase (Negative) Hyaline Casts (0-2) /lpf Urine Mucus (None) /hpf 09/22/23 09/22/23 09/22/23 Range/Units 12:30 13:30 15:19 WBC (3.8-10.6) k/uL RBC (3.80-5.40) m/uL Hgb (11.4-16.0) gm/dL Hct (34.0-46.0) % MCHC (31.0-37.0) g/dL RDW (11.5-15.5) % Plt Count (150-450) k/uL Neutrophils # (1.3-7.7) k/uL Lymphocytes # (1.0-4.8) k/uL APTT (22.0-30.0) sec ABG pH (7.35-7.45) ABG pO2 (83-108) mmHg ABG Total CO2 (19-24) mmol/L ABG O2 Saturation (94-97) % Chloride (98-107) mmol/L Carbon Dioxide (22-30) mmol/L BUN (7-17) mg/dL Creatinine (0.52-1.04) mg/dL Glucose (74-99) mg/dL POC Glucose (mg/dL) (70-110) mg/dL Plasma Lactic Acid Nino (0.7-2.0) mmol/L Total Bilirubin (0.2-1.3) mg/dL AST (14-36) U/L ALT (4-34) U/L Alkaline Phosphatase (38-126) U/L Troponin I 0.155 H* 1.430 H* (0.000-0.034) ng/mL Procalcitonin (0.02-0.09) ng/mL Urine Protein Trace H (Negative) Urine Ketones Trace H (Negative) Ur Leukocyte Esterase Trace H (Negative) Hyaline Casts 4 H (0-2) /lpf Urine Mucus Rare H (None) /hpf 09/22/23 09/22/23 09/22/23 Range/Units 16:22 16:26 17:19 WBC (3.8-10.6) k/uL RBC (3.80-5.40) m/uL Hgb (11.4-16.0) gm/dL Hct (34.0-46.0) % MCHC (31.0-37.0) g/dL RDW (11.5-15.5) % Plt Count (150-450) k/uL Neutrophils # (1.3-7.7) k/uL Lymphocytes # (1.0-4.8) k/uL APTT (22.0-30.0) sec ABG pH (7.35-7.45) ABG pO2 (83-108) mmHg ABG Total CO2 (19-24) mmol/L ABG O2 Saturation (94-97) % Chloride (98-107) mmol/L Carbon Dioxide (22-30) mmol/L BUN (7-17) mg/dL Creatinine (0.52-1.04) mg/dL Glucose (74-99) mg/dL POC Glucose (mg/dL) 159 H 160 H (70-110) mg/dL Plasma Lactic Acid Nino (0.7-2.0) mmol/L Total Bilirubin (0.2-1.3) mg/dL AST (14-36) U/L ALT (4-34) U/L Alkaline Phosphatase (38-126) U/L Troponin I (0.000-0.034) ng/mL Procalcitonin 0.54 H (0.02-0.09) ng/mL Urine Protein (Negative) Urine Ketones (Negative) Ur Leukocyte Esterase (Negative) Hyaline Casts (0-2) /lpf Urine Mucus (None) /hpf 09/22/23 09/22/23 09/22/23 Range/Units 18:29 21:34 23:08 WBC (3.8-10.6) k/uL RBC (3.80-5.40) m/uL Hgb (11.4-16.0) gm/dL Hct (34.0-46.0) % MCHC (31.0-37.0) g/dL RDW (11.5-15.5) % Plt Count (150-450) k/uL Neutrophils # (1.3-7.7) k/uL Lymphocytes # (1.0-4.8) k/uL APTT 41.2 H (22.0-30.0) sec ABG pH (7.35-7.45) ABG pO2 (83-108) mmHg ABG Total CO2 (19-24) mmol/L ABG O2 Saturation (94-97) % Chloride (98-107) mmol/L Carbon Dioxide (22-30) mmol/L BUN (7-17) mg/dL Creatinine (0.52-1.04) mg/dL Glucose (74-99) mg/dL POC Glucose (mg/dL) 234 H (70-110) mg/dL Plasma Lactic Acid Nino (0.7-2.0) mmol/L Total Bilirubin (0.2-1.3) mg/dL AST (14-36) U/L ALT (4-34) U/L Alkaline Phosphatase (38-126) U/L Troponin I 2.910 H* (0.000-0.034) ng/mL Procalcitonin (0.02-0.09) ng/mL Urine Protein (Negative) Urine Ketones (Negative) Ur Leukocyte Esterase (Negative) Hyaline Casts (0-2) /lpf Urine Mucus (None) /hpf 09/23/23 09/23/23 09/23/23 Range/Units 00:22 05:46 05:46 WBC 19.6 H (3.8-10.6) k/uL RBC 3.43 L (3.80-5.40) m/uL Hgb 9.8 L (11.4-16.0) gm/dL Hct 32.2 L (34.0-46.0) % MCHC 30.5 L (31.0-37.0) g/dL RDW 16.3 H (11.5-15.5) % Plt Count 113 L (150-450) k/uL Neutrophils # 18.8 H (1.3-7.7) k/uL Lymphocytes # 0.5 L (1.0-4.8) k/uL APTT (22.0-30.0) sec ABG pH 7.32 L (7.35-7.45) ABG pO2 200 H (83-108) mmHg ABG Total CO2 25 H (19-24) mmol/L ABG O2 Saturation 99.8 H (94-97) % Chloride 109 H (98-107) mmol/L Carbon Dioxide (22-30) mmol/L BUN 65 H (7-17) mg/dL Creatinine 1.98 H (0.52-1.04) mg/dL Glucose 220 H (74-99) mg/dL POC Glucose (mg/dL) (70-110) mg/dL Plasma Lactic Acid Nino (0.7-2.0) mmol/L Total Bilirubin (0.2-1.3) mg/dL AST 108 H (14-36) U/L ALT 72 H (4-34) U/L Alkaline Phosphatase 154 H (38-126) U/L Troponin I (0.000-0.034) ng/mL Procalcitonin (0.02-0.09) ng/mL Urine Protein (Negative) Urine Ketones (Negative) Ur Leukocyte Esterase (Negative) Hyaline Casts (0-2) /lpf Urine Mucus (None) /hpf 09/23/23 Range/Units 08:20 WBC (3.8-10.6) k/uL RBC (3.80-5.40) m/uL Hgb (11.4-16.0) gm/dL Hct (34.0-46.0) % MCHC (31.0-37.0) g/dL RDW (11.5-15.5) % Plt Count (150-450) k/uL Neutrophils # (1.3-7.7) k/uL Lymphocytes # (1.0-4.8) k/uL APTT (22.0-30.0) sec ABG pH (7.35-7.45) ABG pO2 (83-108) mmHg ABG Total CO2 (19-24) mmol/L ABG O2 Saturation (94-97) % Chloride (98-107) mmol/L Carbon Dioxide (22-30) mmol/L BUN (7-17) mg/dL Creatinine (0.52-1.04) mg/dL Glucose (74-99) mg/dL POC Glucose (mg/dL) 232 H (70-110) mg/dL Plasma Lactic Acid Nino (0.7-2.0) mmol/L Total Bilirubin (0.2-1.3) mg/dL AST (14-36) U/L ALT (4-34) U/L Alkaline Phosphatase (38-126) U/L Troponin I (0.000-0.034) ng/mL Procalcitonin (0.02-0.09) ng/mL Urine Protein (Negative) Urine Ketones (Negative) Ur Leukocyte Esterase (Negative) Hyaline Casts (0-2) /lpf Urine Mucus (None) /hpf
[2023-09-23 11:42] LABS: Glucose,Whole Blood 257 mg/dL (70-110)
[2023-09-23] MEDS: INSULIN ASPART (NovoLOG) 100 UNIT/ML VIAL SQ SCH (12:05)
--- NOTE | 2023-09-23 12:57 | CA ---
Transthoracic Echo Report Name: Mary Miranda Age: 88 Gender: F : 1935 Exam Date: 09/22/2023 17:07 Exam Location: [place] [facility] Ht (in): 69 Wt (lb): 170 Ordering Physician: Elis Schaefer MD Attending/Referring Phys: Overcoiler Lu Simmons RDCS Procedure CPT: Indications: chf Cardiac Hx: Technical Quality: Fair Contrast 1: Total Dose (mL): Contrast 2: Total Dose (mL): MEASUREMENTS (Male / Female) Normal Values 2D ECHO LV Diastolic Diameter PLAX 4.6 cm 4.2 - 5.9 / 3.9 - 5.3 cm LV Systolic Diameter PLAX 4.2 cm IVS Diastolic Thickness 1.1 cm 0.6 - 1.0 / 0.6 - 0.9 cm LVPW Diastolic Thickness 1.1 cm 0.6 - 1.0 / 0.6 - 0.9 cm LV Relative Wall Thickness 0.5 RV Internal Dim ED PLAX 4.2 cm LA Systolic Diameter LX 4.8 cm 3.0 - 4.0 / 2.7 - 3.8 cm LV Diastolic Volume MOD BP 57.1 cm??? 67 - 155 / 56 - 104 cm??? LV Systolic Volume MOD BP 26.9 cm??? - 58 / 19 - 49 cm??? LV Ejection Fraction MOD BP 52.9 % >= 55 % LV Cardiac Index MOD BP 1582.2 cm???/min???m??? LV Diastolic Volume MOD 4C 65.4 cm??? LV Systolic Volume MOD 4C 41.4 cm??? LV Ejection Fraction MOD 4C 36.6 % LV Cardiac Index MOD 4C 1255.4 cm???/min???m??? LV Diastolic Length 4C 7.1 cm LV Systolic Length 4C 6.0 cm LV Diastolic Volume MOD 2C 64.4 cm??? LV Systolic Volume MOD 2C 31.8 cm??? LV Ejection Fraction MOD 2C 50.7 % LV Cardiac Index MOD 2C 1709.0 cm???/min???m??? LV Diastolic Length 2C 7.0 cm LV Systolic Length 2C 6.5 cm LA Volume 83.9 cm??? 18 - 58 / 22 - 52 cm??? LA Volume Index 43.1 cm???/m??? 16 - 28 cm???/m??? M-MODE Aortic Root Diameter MM 2.7 cm MV E Point Septal Separation 0.8 cm DOPPLER AV Peak Velocity 179.0 cm/s AV Peak Gradient 12.8 mmHg AV Mean Velocity 112.2 cm/s AV Mean Gradient 6.0 mmHg AV Velocity Time Integral 34.2 cm LVOT Peak Velocity 88.3 cm/s LVOT Peak Gradient 3.1 mmHg MV Peak Velocity 215.6 cm/s MV Peak Gradient 18.6 mmHg MV Mean Velocity 90.8 cm/s MV Mean Gradient 4.6 mmHg MV Velocity Time Integral 39.7 cm MV Area PHT 3.8 cm??? MR Peak Velocity 397.1 cm/s MR Peak Gradient 63.1 mmHg MV Deceleration Time 237.2 ms TR Peak Velocity 259.8 cm/s TR Peak Gradient 27.0 mmHg Right Ventricular Systolic Press 40.9 mmHg FINDINGS Left Ventricle Left ventricular ejection fraction is estimated at 35-40 %. Left ventricular cavity size normal. Mildly increased septal wall thickness. Mildly increased posterior wall thickness. Moderatly decreased left ventricular ejection fraction. Septum dyskinesis Right Ventricle Severe right ventricular dilatation. Reduced right ventricular global systolic function. Right Atrium Moderate right atrial dilatation. Left Atrium Severely increased left atrial diameter. Severely increased left atrial volume. Mildly increased left atrial area. Mitral Valve Mitral valve thickened. Mild mitral stenosis. Aortic Valve Normally functioning bioprosthetic aortic valve without stenosis with a peak velocity of 1.8 m/s, peak gradient 13 mmHg, mean gradient 6 mmHg. Tricuspid Valve Structurally normal tricuspid valve. Severe tricuspid regurgitation. Pulmonic Valve Structurally normal pulmonic valve. Trace pulmonic regurgitation. Pericardium No pericardial effusion. Aorta Normal size aortic root and proximal ascending aorta. CONCLUSIONS Reduced LV systolic function Severe RV enlargement with reduced systolic function, severe tricuspid regurgitation Biatrial enlargement Stable bioprosthetic valve with normal gradients Dilated IVC Previewed by: Dr. Hadley Watson MD (Electronically Signed) Final Date: 23 September 2023 12:56
--- NOTE | 2023-09-23 13:35 | P.PN ---
Subjective Progress Note Date: 09/23/23 Principal diagnosis: Respiratory failure. Pulmonary consult dated September 22, 2023. 88-year-old female who was seen by Dr. Terrazas in the emergency department, for difficulty breathing, and elevated temperature. According to the family, the patient was fine yesterday, but today, was noted to have a hard time breathing, had some confusion and mental status changes, had very low saturations, blue lips, and generally would just not well. Also, apparently, she has been coughing quite a bit for the last few days. The patient is seen in the emergency department, in the trauma room. A family member is at the bedside. He gives most of the history. The patient is placed on BiPAP, with settings at 10/5 and 50%. The patient did receive a liter of saline, and was on a Cardizem drip at 5 mg an hour, but that was discontinued. The patient is a DO NOT RESUSCITATE patient. The patient has a history of atrial fibrillation, COPD, diabetes, hyperlipidemia, hypertension, dementia, and osteoarthritis. The patient has had a previous transcatheter aortic valve replacement as well. Recently, the patient has been following at the wound clinic for nonhealing leg ulcerations and wounds. Current laboratory data includes a white count of 17.8, hemoglobin 10.3, hematocrit 32.8, and a platelet count of 145,000. Sodium 139, potassium 4.3, chlorides 106, CO2 20, anion gap 13, BUN 56, and creatinine 1.31. Lactic acid initially was 4.2. Repeat was 1.8. Glucose was 171. Troponin was 0.155 and 1.430. N-terminal proBNP is 2020. The patient tested negative for influenza, AMB, RSV, coronavirus. Urine had trace protein, trace ketones, trace leukocyte esterase, but no bacteria. EKG shows atrial fibrillation with a rapid ventricular response, 155 bpm. Chest x-ray shows diffuse haziness, likely consistent with fluid overload/CHF. Progress note dated September 23, 2023. 88-year-old female well-known to me. The patient was seen in the emergency department yesterday, with respiratory failure. She was brought in because of low saturations, fever, and, had a chest x-ray that was consistent with fluid overload/CHF. The patient was also having episodes of atrial fibrillation with RVR. She is seen today in the ICU, room 267. She had arterial blood gases which show pO2 of 200, pCO2 of 45, pH is 7.32. The patient was on BiPAP, with settings of 10/5 and 35%. Currently she is on 3 L of oxygen. The patient continues on heparin via weight-based protocol, norepinephrine at 2.5 mcg/min, and saline at 75 cc an hour, which will be converted to keep vein open IV. She also continues on Zosyn and vancomycin. She will get 1 dose of Lasix today, 40 mg IV push. Current labs include a white count 19.6, hemoglobin 9.8, hematocrit 32.2, and a platelet count of 113,000. PTT is 38.5. Sodium 142, potassium 4.1, chlorides 109, CO2 22, anion gap 11, BUN 65, and creatinine 1.98. Glucose is 257. AST is 108. ALT is 72. Procalcitonin level is elevated at 0.54. Troponin was 2.910. N-terminal proBNP was 2020. Objective - Vital Signs Vital signs: Vital Signs Temp 98.8 F 09/23/23 12:00 Pulse 99 09/23/23 12:00 Resp 22 09/23/23 12:00 BP 107/57 09/23/23 12:00 Pulse Ox 97 09/23/23 12:00 FiO2 35 09/23/23 04:41 Intake & Output 09/22/23 09/23/23 09/23/23 18:59 06:59 18:59 Intake Total 10.879 275.594 903.341 Output Total 400 495 585 Balance -389.121 -219.406 318.341 Weight 83.6 kg 85.8 kg Intake: IV 190 Invasive Line 2 20 Invasive Line 3 20 Piperacillin-Tazobactam 3 100 .375 gm In Sodium Chloride 0.9% 100 ml @ 25 mls/hr IVPB Q8H [facility] Rx#: [id number] Sodium Chloride 0.9% 1, 50 000 ml @ 10 mls/hr IV . Q24H [facility] Rx#:[id number] Intake, IV Titration 10.879 275.594 233.341 Amount Diltiazem 125 mg In 7.5 Sodium Chloride 0.9% 100 ml @ 5 MG/HR 5 mls/hr IV .Q24H [facility] Rx#:[id number] Heparin Sod,Pork in 0.45% 168.559 NaCl 25,000 unit In 0.45 % NaCl 1 250ml.bag @ 12 UNITS/KG/HR 9.253 mls/hr IV .Q24H [facility] Rx#: [id number] Norepinephrine 4 mg In 3.379 175.594 64.782 Sodium Chloride 0.9% 250 ml @ 0.03 MCG/KG/MIN 8. 814 mls/hr IV .Q24H [facility] Rx#:[id number] Piperacillin-Tazobactam 3 100 .375 gm In Sodium Chloride 0.9% 100 ml @ 25 mls/hr IVPB Q8H [facility] Rx#: [id number] Oral 480 Output: Urine 400 495 585 Uretheral ([place]) 400 Other: Voiding Method Indwelling Catheter # Bowel Movements 1 0 - Exam Patient much more awake and responsive today. Currently just on 3 L. HEENT examination is grossly unremarkable. Neck supple. Full range of motion. No adenopathy thyromegaly or neck vein distention. Cardiovascular examination reveals an irregular rhythm and rate. S1-S2 normal. No S3 or S4. No discernible murmur noted. Sounds distant. Heart rate is 95 bpm. Lungs reveal scattered rhonchi. No wheezes. Breath sounds equal. Saturations are 97% on 3 L. Abdomen soft without bowel sounds. No masses. Extremities are intact. Chronic venous stasis changes noted. No cyanosis. No clubbing. Skin reveals chronic changes. Neurologic examination reveals the patient to be much more awake and alert today. - Labs CBC & Chem 7: 09/23/23 05:46 09/23/23 05:46 Labs: Abnormal Lab Results - Last 24 Hours (Table) 09/22/23 09/22/23 09/22/23 Range/Units 13:30 15:19 16:22 WBC (3.8-10.6) k/uL RBC (3.80-5.40) m/uL Hgb (11.4-16.0) gm/dL Hct (34.0-46.0) % MCHC (31.0-37.0) g/dL RDW (11.5-15.5) % Plt Count (150-450) k/uL Neutrophils # (1.3-7.7) k/uL Lymphocytes # (1.0-4.8) k/uL APTT (22.0-30.0) sec ABG pH (7.35-7.45) ABG pO2 (83-108) mmHg ABG Total CO2 (19-24) mmol/L ABG O2 Saturation (94-97) % Chloride (98-107) mmol/L BUN (7-17) mg/dL Creatinine (0.52-1.04) mg/dL Glucose (74-99) mg/dL POC Glucose (mg/dL) (70-110) mg/dL AST (14-36) U/L ALT (4-34) U/L Alkaline Phosphatase (38-126) U/L Troponin I 1.430 H* (0.000-0.034) ng/mL Procalcitonin 0.54 H (0.02-0.09) ng/mL Urine Protein Trace H (Negative) Urine Ketones Trace H (Negative) Ur Leukocyte Esterase Trace H (Negative) Hyaline Casts 4 H (0-2) /lpf Urine Mucus Rare H (None) /hpf 09/22/23 09/22/23 09/22/23 Range/Units 16:26 17:19 18:29 WBC (3.8-10.6) k/uL RBC (3.80-5.40) m/uL Hgb (11.4-16.0) gm/dL Hct (34.0-46.0) % MCHC (31.0-37.0) g/dL RDW (11.5-15.5) % Plt Count (150-450) k/uL Neutrophils # (1.3-7.7) k/uL Lymphocytes # (1.0-4.8) k/uL APTT (22.0-30.0) sec ABG pH (7.35-7.45) ABG pO2 (83-108) mmHg ABG Total CO2 (19-24) mmol/L ABG O2 Saturation (94-97) % Chloride (98-107) mmol/L BUN (7-17) mg/dL Creatinine (0.52-1.04) mg/dL Glucose (74-99) mg/dL POC Glucose (mg/dL) 159 H 160 H (70-110) mg/dL AST (14-36) U/L ALT (4-34) U/L Alkaline Phosphatase (38-126) U/L Troponin I 2.910 H* (0.000-0.034) ng/mL Procalcitonin (0.02-0.09) ng/mL Urine Protein (Negative) Urine Ketones (Negative) Ur Leukocyte Esterase (Negative) Hyaline Casts (0-2) /lpf Urine Mucus (None) /hpf 09/22/23 09/22/23 09/23/23 Range/Units 21:34 23:08 00:22 WBC (3.8-10.6) k/uL RBC (3.80-5.40) m/uL Hgb (11.4-16.0) gm/dL Hct (34.0-46.0) % MCHC (31.0-37.0) g/dL RDW (11.5-15.5) % Plt Count (150-450) k/uL Neutrophils # (1.3-7.7) k/uL Lymphocytes # (1.0-4.8) k/uL APTT 41.2 H (22.0-30.0) sec ABG pH 7.32 L (7.35-7.45) ABG pO2 200 H (83-108) mmHg ABG Total CO2 25 H (19-24) mmol/L ABG O2 Saturation 99.8 H (94-97) % Chloride (98-107) mmol/L BUN (7-17) mg/dL Creatinine (0.52-1.04) mg/dL Glucose (74-99) mg/dL POC Glucose (mg/dL) 234 H (70-110) mg/dL AST (14-36) U/L ALT (4-34) U/L Alkaline Phosphatase (38-126) U/L Troponin I (0.000-0.034) ng/mL Procalcitonin (0.02-0.09) ng/mL Urine Protein (Negative) Urine Ketones (Negative) Ur Leukocyte Esterase (Negative) Hyaline Casts (0-2) /lpf Urine Mucus (None) /hpf 09/23/23 09/23/23 09/23/23 Range/Units 05:46 05:46 08:20 WBC 19.6 H (3.8-10.6) k/uL RBC 3.43 L (3.80-5.40) m/uL Hgb 9.8 L (11.4-16.0) gm/dL Hct 32.2 L (34.0-46.0) % MCHC 30.5 L (31.0-37.0) g/dL RDW 16.3 H (11.5-15.5) % Plt Count 113 L (150-450) k/uL Neutrophils # 18.8 H (1.3-7.7) k/uL Lymphocytes # 0.5 L (1.0-4.8) k/uL APTT (22.0-30.0) sec ABG pH (7.35-7.45) ABG pO2 (83-108) mmHg ABG Total CO2 (19-24) mmol/L ABG O2 Saturation (94-97) % Chloride 109 H (98-107) mmol/L BUN 65 H (7-17) mg/dL Creatinine 1.98 H (0.52-1.04) mg/dL Glucose 220 H (74-99) mg/dL POC Glucose (mg/dL) 232 H (70-110) mg/dL AST 108 H (14-36) U/L ALT 72 H (4-34) U/L Alkaline Phosphatase 154 H (38-126) U/L Troponin I (0.000-0.034) ng/mL Procalcitonin (0.02-0.09) ng/mL Urine Protein (Negative) Urine Ketones (Negative) Ur Leukocyte Esterase (Negative) Hyaline Casts (0-2) /lpf Urine Mucus (None) /hpf 09/23/23 09/23/23 Range/Units 08:21 11:39 WBC (3.8-10.6) k/uL RBC (3.80-5.40) m/uL Hgb (11.4-16.0) gm/dL Hct (34.0-46.0) % MCHC (31.0-37.0) g/dL RDW (11.5-15.5) % Plt Count (150-450) k/uL Neutrophils # (1.3-7.7) k/uL Lymphocytes # (1.0-4.8) k/uL APTT 38.5 H (22.0-30.0) sec ABG pH (7.35-7.45) ABG pO2 (83-108) mmHg ABG Total CO2 (19-24) mmol/L ABG O2 Saturation (94-97) % Chloride (98-107) mmol/L BUN (7-17) mg/dL Creatinine (0.52-1.04) mg/dL Glucose (74-99) mg/dL POC Glucose (mg/dL) 257 H (70-110) mg/dL AST (14-36) U/L ALT (4-34) U/L Alkaline Phosphatase (38-126) U/L Troponin I (0.000-0.034) ng/mL Procalcitonin (0.02-0.09) ng/mL Urine Protein (Negative) Urine Ketones (Negative) Ur Leukocyte Esterase (Negative) Hyaline Casts (0-2) /lpf Urine Mucus (None) /hpf Assessment and Plan Assessment: Acute hypoxemic respiratory failure, possibly multifactorial, likely related to atrial fibrillation, fluid overload, and or pneumonia. Rule out non-ST segment elevation myocardial infarction. Atrial fibrillation with RVR. Cough and fever, rule out pneumonia. Mild nonanion gap metabolic acidosis. Mild lactic acidosis. History of hyperlipidemia. Diabetes mellitus. Prior history of transcatheter aortic valve replacement. History of dementia. History of COPD. History of hyperlipidemia. History of hypertension. Chronic lower extremity wounds. Plan: Plan dated September 22, 2023. The patient is seen in the emergency department. Family members at bedside. The patient is currently on BiPAP. The patient did receive a liter of saline. The patient was on a Cardizem drip, but that has been turned off. The patient may have sustained a non-ST segment elevation myocardial infarction. She came in with atrial fibrillation with rapid ventricular response, and a chest x-ray which suggest fluid overload. BNP was somewhat elevated. The patient was placed on antibiotics in the form of vancomycin and Zosyn. A procalcitonin level was ordered. Labs, x-rays, medications are reviewed. Prognosis is poor. The patient is a DO NOT RESUSCITATE patient. That order was placed down. Plan dated September 23, 2023. Surprisingly, the patient is much more awake and alert today. She is just on 3 L. Yesterday when we saw her in the emergency department, she was poorly responsive at best. The patient continues on antibiotics. The procalcitonin level was a bit elevated. The patient also continues on a small amount of norepinephrine at 2.5 mcg/min. The patient continues on Zosyn and vancomycin. Will give her a dose of Lasix 40 mg IV push today. Her BiPAP settings are 10/5 and 35%. We will continue to follow make recommendations along the way. The patient does continue on IV heparin as well. She may have sustained a non-ST segment elevation myocardial infarction. Time with Patient: Greater than 30
[2023-09-23] MEDS: VANCOMYCIN 1,500 MG in SODIUM CHLORIDE 0.9% 500 ML 500 ML IVPB SCH (15:49)
[2023-09-23] MEDS: COLLAGENASE 250 UNIT/GM OINTMENT 30 GM TUBE TOPICAL SCH (15:50)
[2023-09-23 16:44] LABS: Glucose,Whole Blood 302 mg/dL (70-110)
[2023-09-23 20:32] LABS: Glucose,Whole Blood 179 mg/dL (70-110)
[2023-09-23] MEDS: NOREPINEPHRINE 4 MG in SODIUM CHLORIDE 0.9% 250 ML IV SCH (20:39)
--- NOTE | 2023-09-23 22:54 | P.CONS ---
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 Patient has not been brought back to the hospital yesterday afternoon after the patient has been complaining of difficulty breathing that apparently was going on for a few days, patient was noticed to be more short of breath and cyanotic per the family at the bedside patient did have a congested cough but not bring up any sputum apparently the patient also have a fever at home and the patient was noted to be hypoxic with O2 sats in the 50s and EMS patient has been brought into the hospital on arrival to the ER the patient did have a temperature 100.3 F patient was tachycardic and hypotensive requiring admission to the ICU patient was hypoxic currently on supplemental oxygen patient did have white count of 17 point 8 repeat is 19.6 creatinine is 1.98 liver enzymes mildly elevated urine has been negative influenza RSV COVID testing was negative blood urine culture pending currently pending patient did have a chest x-ray cardiomeg tariq with pulmonary vascular congestion repeat x-ray chronic change without evidence for acute pulmonary disease infectious was consulted today regarding sepsis in this patient empirically being treated with the vancomycin and Zosyn Past Medical History Past Medical History: Atrial Fibrillation, COPD, Diabetes Mellitus, Hyperlipidemia, Hypertension, Memory Impairment, Osteoarthritis (OA) Additional Past Medical History / Comment(s): possible Hiatal Hernia, left neck mass History of Any Multi-Drug Resistant Organisms: None Reported Past Surgical History: Cardiac Valve Replacement, Cholecystectomy, Orthopedic Surgery Additional Past Surgical History / Comment(s): Right knee surgery X5, Hammer Toe surgery, left knee arthroscopy Past Anesthesia/Blood Transfusion Reactions: Previous Problems w/ Anesthesia Additional Past Anesthesia/Blood Transfusion Reaction / Comm: Woke up during last knee surgery. Smoking Status: Current some day smoker - Past Family History Father Family Medical History: Cancer Additional Family Medical History / Comment(s): Prostate Cancer. Brother(s) Additional Family Medical History / Comment(s): Blood clot from surgery. Medications and Allergies Home Medications Medication Instructions Recorded Confirmed Type Apixaban [Eliquis] 2.5 mg PO BID 10/10/18 09/22/23 History Atorvastatin [Lipitor] 40 mg PO Q48H 10/10/18 09/22/23 History Latanoprost/Pf [Latanoprost 0.005% 1 drop RIGHT EYE HS 10/10/18 09/22/23 History Eye Drop] Multivitamins, Thera [Multivitamin 1 tab PO DAILY 10/10/18 09/22/23 History (formulary)] metFORMIN HCL [metFORMIN HCL ER] 750 mg PO BID-W/MEALS 10/10/18 09/22/23 History Donepezil [Aricept] 10 mg PO DAILY 12/27/20 09/22/23 History Calcium 1000mg 1 tab PO DAILY 01/23/23 09/22/23 History Co Q-10 100mg 1 tab PO DAILY 01/23/23 09/22/23 History Zinc Gluconate [Zinc] 50 mg PO DAILY 01/23/23 09/22/23 History Furosemide [Lasix] 20 mg PO DAILY #0 07/23/23 09/22/23 Rx Gabapentin 300 mg PO TID #9 cap 07/23/23 09/22/23 Rx Ascorbic Acid [Vitamin C] 1,000 mg PO DAILY 09/22/23 09/22/23 History Cholecalciferol [Vitamin D3 (25 25 mcg PO DAILY 09/22/23 09/22/23 History Mcg = 1000 Iu)] Ferrous Sulfate [Iron (65 MG 325 mg PO HS 09/22/23 09/22/23 History Elemental)] Fosinopril/Hydrochlorothiazide 1 tab PO DAILY 09/22/23 09/22/23 History [Monopril HCT 10-12.5 mg Tab] Memantine [Namenda] 10 mg PO BID 09/22/23 09/22/23 History Metoprolol Tartrate [Lopressor] 25 mg PO DAILY 09/22/23 09/22/23 History Zolpidem [Ambien] 5 mg PO HS PRN 09/22/23 09/22/23 History traMADol HCL 100 mg PO BID 09/22/23 09/22/23 History Allergies Allergy/AdvReac Type Severity Reaction Status Date / Time Paper Tape Allergy Redness/Itc Uncoded 07/12/23 21:52 erick Physical Exam Vitals: Vital Signs Temp Pulse Pulse Resp BP Pulse Ox FiO2 09/23/23 09:21 96 09/23/23 09:07 95 09/23/23 08:57 96 09/23/23 07:00 89 17 94/55 98 09/23/23 06:45 86 17 94/55 98 09/23/23 06:30 84 17 95/55 98 09/23/23 06:15 78 15 98/56 100 09/23/23 06:00 84 16 85/75 99 09/23/23 05:45 87 14 90/59 100 09/23/23 05:30 92 29 H 107/60 100 09/23/23 05:15 84 16 107/65 99 09/23/23 05:00 96 16 100/57 100 09/23/23 04:52 84 09/23/23 04:45 89 19 112/59 100 09/23/23 04:41 102 H 35 09/23/23 04:30 87 17 117/71 100 09/23/23 04:15 86 15 102/60 98 09/23/23 04:00 84 91 18 100/57 100 09/23/23 03:45 99 19 102/57 100 09/23/23 03:30 97.1 F L 85 17 93/61 100 09/23/23 03:15 76 17 97/61 99 09/23/23 03:00 83 17 96/64 100 30 09/23/23 02:45 82 17 101/54 100 09/23/23 02:30 78 22 91/54 99 09/23/23 02:15 80 17 112/72 100 09/23/23 02:00 93 16 113/61 100 30 09/23/23 01:00 92 14 115/67 100 09/23/23 00:45 85 09/23/23 00:35 80 35 09/23/23 00:00 82 91 19 115/67 100 09/22/23 23:00 97.7 F 98 22 104/70 100 50 09/22/23 22:26 89 22 103/57 100 09/22/23 21:08 91 09/22/23 21:03 87 20 94/49 100 04/23/24 20:56 86 09/22/23 20:48 50 09/22/23 20:47 94 09/22/23 20:33 98 19 94/52 09/22/23 20:21 87/52 09/22/23 20:12 98.2 F 100 24 113/54 100 09/22/23 18:45 84 20 96/56 100 09/22/23 18:30 106 H 18 98/71 100 09/22/23 18:15 101 H 20 92/54 100 09/22/23 18:00 99.0 F 98 20 90/56 100 09/22/23 17:45 101 H 19 90/64 100 09/22/23 17:41 108 H 22 93/54 99 09/22/23 17:30 89 19 93/54 99 09/22/23 17:26 98.8 F 09/22/23 17:15 101 H 22 90/61 98 09/22/23 17:00 99.2 F 97 21 91/58 99 09/22/23 16:45 99 22 96/55 99 09/22/23 16:30 100 20 82/57 98 09/22/23 16:15 112 H 26 H 81/51 99 09/22/23 16:05 107 H 22 73/48 99 09/22/23 15:49 104 H 24 77/42 96 09/22/23 15:33 50 09/22/23 15:14 108 H 24 86/56 98 09/22/23 14:30 112 H 24 74/46 98 09/22/23 14:28 50 09/22/23 14:15 126 H 20 83/50 96 50 09/22/23 14:00 66/33 09/22/23 13:45 80/43 09/22/23 13:25 99.5 F 120 H 18 73/39 90 L 09/22/23 13:00 137 H 28 H 93/42 94 L 09/22/23 12:48 131 H 30 H 87/37 93 L 09/22/23 12:22 100.3 F H 163 H 26 H 115/66 93 L Intake and Output 09/22/23 09/23/23 09/23/23 22:59 06:59 14:59 Intake Total 49.408 229.565 Output Total 400 495 35 Balance -350.592 -265.435 -35 Intake: Intake, IV Titration 49.408 229.565 Amount Norepinephrine 4 mg In 49.408 129.565 Sodium Chloride 0.9% 250 ml @ 0.03 MCG/KG/MIN 8. 814 mls/hr IV .Q24H ONE Rx#:[id number] Piperacillin-Tazobactam 3 100 .375 gm In Sodium Chloride 0.9% 100 ml @ 25 mls/hr IVPB Q8H [facility] Rx#: [id number] Output: Urine 400 495 35 Uretheral ([place]) 400 Other: # Bowel Movements 1 Weight 83.6 kg 85.8 kg Results CBC & Chem 7: 09/23/23 05:46 09/23/23 05:46 Labs: Abnormal Lab Results - Last 24 Hours (Table) 09/22/23 09/22/23 09/22/23 Range/Units 12:30 12:30 12:30 WBC 17.8 H (3.8-10.6) k/uL RBC 3.51 L (3.80-5.40) m/uL Hgb 10.3 L (11.4-16.0) gm/dL Hct 32.8 L (34.0-46.0) % MCHC (31.0-37.0) g/dL RDW 16.1 H (11.5-15.5) % Plt Count 145 L D (150-450) k/uL Neutrophils # 16.4 H (1.3-7.7) k/uL Lymphocytes # 0.5 L (1.0-4.8) k/uL APTT (22.0-30.0) sec ABG pH (7.35-7.45) ABG pO2 (83-108) mmHg ABG Total CO2 (19-24) mmol/L ABG O2 Saturation (94-97) % Chloride (98-107) mmol/L Carbon Dioxide 20 L (22-30) mmol/L BUN 56 H (7-17) mg/dL Creatinine 1.31 H (0.52-1.04) mg/dL Glucose 171 H (74-99) mg/dL POC Glucose (mg/dL) (70-110) mg/dL Plasma Lactic Acid Nino 4.2 H* (0.7-2.0) mmol/L Total Bilirubin 1.7 H (0.2-1.3) mg/dL AST 71 H (14-36) U/L ALT 38 H (4-34) U/L Alkaline Phosphatase 186 H (38-126) U/L Troponin I (0.000-0.034) ng/mL Procalcitonin (0.02-0.09) ng/mL Urine Protein (Negative) Urine Ketones (Negative) Ur Leukocyte Esterase (Negative) Hyaline Casts (0-2) /lpf Urine Mucus (None) /hpf 09/22/23 09/22/23 09/22/23 Range/Units 12:30 13:30 15:19 WBC (3.8-10.6) k/uL RBC (3.80-5.40) m/uL Hgb (11.4-16.0) gm/dL Hct (34.0-46.0) % MCHC (31.0-37.0) g/dL RDW (11.5-15.5) % Plt Count (150-450) k/uL Neutrophils # (1.3-7.7) k/uL Lymphocytes # (1.0-4.8) k/uL APTT (22.0-30.0) sec ABG pH (7.35-7.45) ABG pO2 (83-108) mmHg ABG Total CO2 (19-24) mmol/L ABG O2 Saturation (94-97) % Chloride (98-107) mmol/L Carbon Dioxide (22-30) mmol/L BUN (7-17) mg/dL Creatinine (0.52-1.04) mg/dL Glucose (74-99) mg/dL POC Glucose (mg/dL) (70-110) mg/dL Plasma Lactic Acid Nino (0.7-2.0) mmol/L Total Bilirubin (0.2-1.3) mg/dL AST (14-36) U/L ALT (4-34) U/L Alkaline Phosphatase (38-126) U/L Troponin I 0.155 H* 1.430 H* (0.000-0.034) ng/mL Procalcitonin (0.02-0.09) ng/mL Urine Protein Trace H (Negative) Urine Ketones Trace H (Negative) Ur Leukocyte Esterase Trace H (Negative) Hyaline Casts 4 H (0-2) /lpf Urine Mucus Rare H (None) /hpf 09/22/23 09/22/23 09/22/23 Range/Units 16:22 16:26 17:19 WBC (3.8-10.6) k/uL RBC (3.80-5.40) m/uL Hgb (11.4-16.0) gm/dL Hct (34.0-46.0) % MCHC (31.0-37.0) g/dL RDW (11.5-15.5) % Plt Count (150-450) k/uL Neutrophils # (1.3-7.7) k/uL Lymphocytes # (1.0-4.8) k/uL APTT (22.0-30.0) sec ABG pH (7.35-7.45) ABG pO2 (83-108) mmHg ABG Total CO2 (19-24) mmol/L ABG O2 Saturation (94-97) % Chloride (98-107) mmol/L Carbon Dioxide (22-30) mmol/L BUN (7-17) mg/dL Creatinine (0.52-1.04) mg/dL Glucose (74-99) mg/dL POC Glucose (mg/dL) 159 H 160 H (70-110) mg/dL Plasma Lactic Acid Nino (0.7-2.0) mmol/L Total Bilirubin (0.2-1.3) mg/dL AST (14-36) U/L ALT (4-34) U/L Alkaline Phosphatase (38-126) U/L Troponin I (0.000-0.034) ng/mL Procalcitonin 0.54 H (0.02-0.09) ng/mL Urine Protein (Negative) Urine Ketones (Negative) Ur Leukocyte Esterase (Negative) Hyaline Casts (0-2) /lpf Urine Mucus (None) /hpf 09/22/23 09/22/23 09/22/23 Range/Units 18:29 21:34 23:08 WBC (3.8-10.6) k/uL RBC (3.80-5.40) m/uL Hgb (11.4-16.0) gm/dL Hct (34.0-46.0) % MCHC (31.0-37.0) g/dL RDW (11.5-15.5) % Plt Count (150-450) k/uL Neutrophils # (1.3-7.7) k/uL Lymphocytes # (1.0-4.8) k/uL APTT 41.2 H (22.0-30.0) sec ABG pH (7.35-7.45) ABG pO2 (83-108) mmHg ABG Total CO2 (19-24) mmol/L ABG O2 Saturation (94-97) % Chloride (98-107) mmol/L Carbon Dioxide (22-30) mmol/L BUN (7-17) mg/dL Creatinine (0.52-1.04) mg/dL Glucose (74-99) mg/dL POC Glucose (mg/dL) 234 H (70-110) mg/dL Plasma Lactic Acid Nino (0.7-2.0) mmol/L Total Bilirubin (0.2-1.3) mg/dL AST (14-36) U/L ALT (4-34) U/L Alkaline Phosphatase (38-126) U/L Troponin I 2.910 H* (0.000-0.034) ng/mL Procalcitonin (0.02-0.09) ng/mL Urine Protein (Negative) Urine Ketones (Negative) Ur Leukocyte Esterase (Negative) Hyaline Casts (0-2) /lpf Urine Mucus (None) /hpf 09/23/23 09/23/23 09/23/23 Range/Units 00:22 05:46 05:46 WBC 19.6 H (3.8-10.6) k/uL RBC 3.43 L (3.80-5.40) m/uL Hgb 9.8 L (11.4-16.0) gm/dL Hct 32.2 L (34.0-46.0) % MCHC 30.5 L (31.0-37.0) g/dL RDW 16.3 H (11.5-15.5) % Plt Count 113 L (150-450) k/uL Neutrophils # 18.8 H (1.3-7.7) k/uL Lymphocytes # 0.5 L (1.0-4.8) k/uL APTT (22.0-30.0) sec ABG pH 7.32 L (7.35-7.45) ABG pO2 200 H (83-108) mmHg ABG Total CO2 25 H (19-24) mmol/L ABG O2 Saturation 99.8 H (94-97) % Chloride 109 H (98-107) mmol/L Carbon Dioxide (22-30) mmol/L BUN 65 H (7-17) mg/dL Creatinine 1.98 H (0.52-1.04) mg/dL Glucose 220 H (74-99) mg/dL POC Glucose (mg/dL) (70-110) mg/dL Plasma Lactic Acid Nino (0.7-2.0) mmol/L Total Bilirubin (0.2-1.3) mg/dL AST 108 H (14-36) U/L ALT 72 H (4-34) U/L Alkaline Phosphatase 154 H (38-126) U/L Troponin I (0.000-0.034) ng/mL Procalcitonin (0.02-0.09) ng/mL Urine Protein (Negative) Urine Ketones (Negative) Ur Leukocyte Esterase (Negative) Hyaline Casts (0-2) /lpf Urine Mucus (None) /hpf 09/23/23 09/23/23 Range/Units 08:20 08:21 WBC (3.8-10.6) k/uL RBC (3.80-5.40) m/uL Hgb (11.4-16.0) gm/dL Hct (34.0-46.0) % MCHC (31.0-37.0) g/dL RDW (11.5-15.5) % Plt Count (150-450) k/uL Neutrophils # (1.3-7.7) k/uL Lymphocytes # (1.0-4.8) k/uL APTT 38.5 H (22.0-30.0) sec ABG pH (7.35-7.45) ABG pO2 (83-108) mmHg ABG Total CO2 (19-24) mmol/L ABG O2 Saturation (94-97) % Chloride (98-107) mmol/L Carbon Dioxide (22-30) mmol/L BUN (7-17) mg/dL Creatinine (0.52-1.04) mg/dL Glucose (74-99) mg/dL POC Glucose (mg/dL) 232 H (70-110) mg/dL Plasma Lactic Acid Nino (0.7-2.0) mmol/L Total Bilirubin (0.2-1.3) mg/dL AST (14-36) U/L ALT (4-34) U/L Alkaline Phosphatase (38-126) U/L Troponin I (0.000-0.034) ng/mL Procalcitonin (0.02-0.09) ng/mL Urine Protein (Negative) Urine Ketones (Negative) Ur Leukocyte Esterase (Negative) Hyaline Casts (0-2) /lpf Urine Mucus (None) /hpf Assessment and Plan Plan: 1patient presented to hospital with sepsis in this patient who did have a fever tachycardia elevated white count source likely pneumonia and the patient did have some respiratory symptoms congested cough infiltrate seen on the chest x- ray patient did have a nonhealing wound to the right lower extremity however overall wound base looks clean with no slough tissue no surrounding redness or foul-smelling drainage urine was negative patient did have elevated liver enzymes possible related to hepatic congestion from CHF but other etiologies not excluded 2-patient with renal insufficiency high risk of nephrotoxicity 3-we will check ultrasound of the liver gallbladder area because of elevated liver enzymes 4-continue with the Zosyn however discontinue vancomycin to decrease risk of nephrotoxicity Son at the bedside multiple questions answered We will follow on clinical condition and cultures to further adjust medication if needed Thank you for this consultation we will follow the patient along with you Dictation was produced using [employer] dictation software. please excuse any gramm atical, word or spelling errors. Time with Patient: Greater than 30
[2023-09-24] MEDS: MELATONIN 3 MG TABLET PO PRN (00:15)
--- NOTE | 2023-09-24 01:30 | P.CRDCN ---
History of Present Illness History of present illness: HISTORY OF PRESENTING ILLNESS This is a pleasant 88-year-old with past medical history significant for aortic stenosis status post TAVR, chronic atrial fibrillation, mild nonobstructive coronary artery disease. She follows in the office with Dr. Crouch. patient is poor historian and history is obtained by chart. She apparently has been having some SOB and fever as well as worsened confusion. Per history she had a cough the last few days as well. Patient had been found by son with cyanotic lips confused and clammy. She was found to be in Afib with RVR on arrival and given Cardizem with BP dropping significantly to 66/33 and was given stress dose steroids as well as IVF bolus with improvement in BP's. EKG shows Afib with RVR with LBBB. CXray with pulmonary vascular congestion. Initially she was requiring BIPAP however this has been weaned. Echo was performed which showed EF 35-40% with normally functioning TAVR valve, severe RV dilation, severe tricuspid regurgitation. WBC 17.8, HGB 10.3, Cr 1.31, Lactic acid 4.2, Troponin 0.15, 1.4, 2.9, proBNP 2019, procalcitonin 0.54, viral panel negative, Cr increased to 1.98 today. Her pulse ox was in the 50's per EMS on presentation. PRIOR CARDIAC TESTING Cardiac cath from 2019 shows minimal nonobstructive coronary artery disease with severe aortic stenosis. Patient had a TAVR procedure done thereafter. REVIEW OF SYSTEMS 14 point review of system is negative except what is mentioned above in HPI. PHYSICAL EXAMINATION Vital signs reviewed. Head: Normocephalic. Eyes: Sclerae nonicteric. Neck: Brisk carotid upstroke, no jugular venous distention. Lungs: Clear to auscultation. Heart: Irregular rate and rhythm, S1-S2, no S3, systolic ejection murmur audible in the aortic area. Brisk carotid upstrokes. Abdomen: Soft nontender, positive bowel sounds no organomegaly. Extremities: ASSESSMENT NSTEMI likely type 2 mechanism from hypoxia pulse ox in the 50's by EMS and hypotension with BP's into the 60's Chronic atrial fibrillation initially RVR, improved Aortic Stenosis status post TAVR Mild coronary artery disease by cath 2019 Cardiomyopathy EF 35-40%, may be stress induced cardiomyopathy, sepsis or other Polyvalvular disease Severe RV enlargement Chronic systolic heart failure Septic shock COPD Hypertension Chronic right lower extremity nonhealing wound PLAN Majority of presentation appears related to sepsis with not feeling well for a week, a cough, fevers and leukocytosis, elevated procalitonin NSTEMI likely related to severe hypoxia pulse ox in the 50's and hypotension with systolics in the 60's Chest Xray with concern of vascular congestion however has had chronically abnormal CXray and responded to IVF Multiple abnormalities on Echo with polyvalvular disease, biatrial enlargement, and severe RV dilation consistent with more advanced heart failure Gentle IVF and monitor response with MAE likely related to ATN from hypoxia and hypotension Given age, dementia, relatively normal cath from 2019 and most likely explanation for NSTEMI being type 2, without chest pain would recommend conservative approach and patient not a good interventional candidate currently with MAE Continue heparin drip for another 24 hrs and likely transition back to Eliquis 09/23 Continue with current suppotive care Past Medical History Past Medical History: Atrial Fibrillation, COPD, Diabetes Mellitus, Hyperlipidem ia, Hypertension, Memory Impairment, Osteoarthritis (OA) Additional Past Medical History / Comment(s): possible Hiatal Hernia, left neck mass History of Any Multi-Drug Resistant Organisms: None Reported Past Surgical History: Cardiac Valve Replacement, Cholecystectomy, Orthopedic Surgery Additional Past Surgical History / Comment(s): Right knee surgery X5, Hammer Toe surgery, left knee arthroscopy Past Anesthesia/Blood Transfusion Reactions: Previous Problems w/ Anesthesia Additional Past Anesthesia/Blood Transfusion Reaction / Comment(s): Woke up during last knee surgery. Smoking Status: Current some day smoker - Past Family History Father Family Medical History: Cancer Additional Family Medical History / Comment(s): Prostate Cancer. Brother(s) Additional Family Medical History / Comment(s): Blood clot from surgery. Medications and Allergies Home Medications Medication Instructions Recorded Confirmed Type Apixaban [Eliquis] 2.5 mg PO BID 10/10/18 09/22/23 History Atorvastatin [Lipitor] 40 mg PO Q48H 10/10/18 09/22/23 History Latanoprost/Pf [Latanoprost 0.005% 1 drop RIGHT EYE HS 10/10/18 09/22/23 History Eye Drop] Multivitamins, Thera [Multivitamin 1 tab PO DAILY 10/10/18 09/22/23 History (formulary)] metFORMIN HCL [metFORMIN HCL ER] 750 mg PO BID-W/MEALS 10/10/18 09/22/23 History Donepezil [Aricept] 10 mg PO DAILY 12/27/20 09/22/23 History Calcium 1000mg 1 tab PO DAILY 01/23/23 09/22/23 History Co Q-10 100mg 1 tab PO DAILY 01/23/23 09/22/23 History Zinc Gluconate [Zinc] 50 mg PO DAILY 01/23/23 09/22/23 History Furosemide [Lasix] 20 mg PO DAILY #0 07/23/23 09/22/23 Rx Gabapentin 300 mg PO TID #9 cap 07/23/23 09/22/23 Rx Ascorbic Acid [Vitamin C] 1,000 mg PO DAILY 09/22/23 09/22/23 History Cholecalciferol [Vitamin D3 (25 25 mcg PO DAILY 09/22/23 09/22/23 History Mcg = 1000 Iu)] Ferrous Sulfate [Iron (65 MG 325 mg PO HS 09/22/23 09/22/23 History Elemental)] Fosinopril/Hydrochlorothiazide 1 tab PO DAILY 09/22/23 09/22/23 History [Monopril HCT 10-12.5 mg Tab] Memantine [Namenda] 10 mg PO BID 09/22/23 09/22/23 History Metoprolol Tartrate [Lopressor] 25 mg PO DAILY 09/22/23 09/22/23 History Zolpidem [Ambien] 5 mg PO HS PRN 09/22/23 09/22/23 History traMADol HCL 100 mg PO BID 09/22/23 09/22/23 History Allergies Allergy/AdvReac Type Severity Reaction Status Date / Time Paper Tape Allergy Redness/Itc Uncoded 07/12/23 21:52 erick Physical Exam Vitals: Vital Signs Temp Pulse Pulse Resp BP Pulse Ox FiO2 09/23/23 16:15 108 H 13 114/63 97 09/23/23 16:00 98.2 F 105 H 19 96/77 97 09/23/23 15:45 104 H 11 L 110/60 96 09/23/23 15:30 104 H 19 104/59 98 09/23/23 15:15 103 H 13 119/64 99 09/23/23 15:00 104 H 14 102/63 97 04/24/24 14:45 117 H 20 98/51 98 24 14:30 98 28 H 100/57 97 09/23/23 14:15 100 20 95/47 98 24 14:00 106 H 15 75/56 96 24 13:45 100 24 92/24 99 24 13:30 111 H 24 102/61 98 24 13:15 96 17 84/51 96 24 13:00 108 H 24 99/54 97 09/23/23 12:45 101 H 19 105/58 95 09/23/23 12:30 105 H 21 114/58 96 09/23/23 12:15 87 19 101/63 96 09/23/23 12:00 98.8 F 99 22 107/57 97 09/23/23 11:45 99 21 105/57 98 09/23/23 11:30 100 22 113/57 96 09/23/23 11:15 92 20 119/59 97 24 11:00 98 19 110/59 96 09/23/23 10:45 107 H 11 L 98/57 98 09/23/23 10:30 103 H 23 89/50 97 24 10:15 107 H 11 L 98/52 98 09/23/23 10:00 108 H 14 96/58 98 09/23/23 09:45 112 H 18 88/48 97 24 09:30 103 H 37 H 70/43 95 24 09:21 96 24 09:15 96 17 85/50 99 24 09:07 95 09/23/23 09:00 97.6 F 89 22 93/51 97 24 08:57 96 24 08:45 90 20 90/51 95 24 08:30 90 20 84/50 99 24 08:15 84 17 90/56 96 24 08:00 96.8 F L 91 16 92/56 98 24 07:45 90 16 97/53 97 24 07:30 86 17 96/56 99 24 07:15 93 21 88/50 99 24 07:00 89 17 94/55 98 09/23/23 06:45 86 17 94/55 98 09/23/23 06:30 84 17 95/55 98 09/23/23 06:15 78 15 98/56 100 09/23/23 06:00 84 16 85/75 99 09/23/23 05:45 87 14 90/59 100 09/23/23 05:30 92 29 H 107/60 100 09/23/23 05:15 84 16 107/65 99 09/23/23 05:00 96 16 100/57 100 09/23/23 04:52 84 09/23/23 04:45 89 19 112/59 100 09/23/23 04:41 102 H 35 09/23/23 04:30 87 17 117/71 100 09/23/23 04:15 86 15 102/60 98 09/23/23 04:00 84 91 18 100/57 100 09/23/23 03:45 99 19 102/57 100 09/23/23 03:30 97.1 F L 85 17 93/61 100 09/23/23 03:15 76 17 97/61 99 09/23/23 03:00 83 17 96/64 100 30 09/23/23 02:45 82 17 101/54 100 09/23/23 02:30 78 22 91/54 99 09/23/23 02:15 80 17 112/72 100 09/23/23 02:00 93 16 113/61 100 30 09/23/23 01:00 92 14 115/67 100 09/23/23 00:45 85 09/23/23 00:35 80 35 09/23/23 00:00 82 91 19 115/67 100 09/22/23 23:00 97.7 F 98 22 104/70 100 50 09/22/23 22:26 89 22 103/57 100 09/22/23 21:08 91 09/22/23 21:03 87 20 94/49 100 09/22/23 20:56 86 09/22/23 20:48 50 09/22/23 20:47 94 09/22/23 20:33 98 19 94/52 04 20:21 87/52 09/22/23 20:12 98.2 F 100 24 113/54 100 09/22/23 18:45 84 20 96/56 100 09/22/23 18:30 106 H 18 98/71 100 09/22/23 18:15 101 H 20 92/54 100 09/22/23 18:00 99.0 F 98 20 90/56 100 09/22/23 17:45 101 H 19 90/64 100 09/22/23 17:41 108 H 22 93/54 99 09/22/23 17:30 89 19 93/54 99 09/22/23 17:26 98.8 F Intake and Output 09/23/23 09/23/23 09/23/23 06:59 14:59 22:59 Intake Total 229.565 933.341 772.314 Output Total 495 860 150 Balance -265.435 73.341 622.314 Intake: IV 220 550 Invasive Line 2 20 Invasive Line 3 30 10 Invasive Line 4 10 Invasive Line 5 10 Piperacillin-Tazobactam 3 100 .375 gm In Sodium Chloride 0.9% 100 ml @ 25 mls/hr IVPB Q8H [facility] Rx#: [id number] Sodium Chloride 0.9% 1, 70 20 000 ml @ 10 mls/hr IV . Q24H [facility] Rx#:[id number] Vancomycin 1,500 mg In 500 Sodium Chloride 0.9% 500 ml 500 ml @ 167 mls/hr IVPB Q24H [facility] Rx#: [id number] Intake, IV Titration 229.565 233.341 222.314 Amount Heparin Sod,Pork in 0.45% 168.559 65.136 NaCl 25,000 unit In 0.45 % NaCl 1 250ml.bag @ 12 UNITS/KG/HR 9.253 mls/hr IV .Q24H [facility] Rx#: [id number] Norepinephrine 4 mg In 129.565 64.782 157.178 Sodium Chloride 0.9% 250 ml @ 0.03 MCG/KG/MIN 8. 814 mls/hr IV .Q24H [facility] Rx#:[id number] Piperacillin-Tazobactam 3 100 .375 gm In Sodium Chloride 0.9% 100 ml @ 25 mls/hr IVPB Q8H [facility] Rx#: [id number] Oral 480 Output: Urine 495 860 150 Other: Voiding Method Indwelling Catheter Indwelling Catheter # Bowel Movements 1 1 0 Weight 85.8 kg Results 09/23/23 05:46 09/23/23 05:46 Cardiac Enzymes 09/22/23 09/23/23 Range/Units 18:29 05:46 AST 108 H (14-36) U/L Troponin I 2.910 H* (0.000-0.034) ng/mL Coagulation 09/22/23 09/23/23 09/23/23 Range/Units 21:34 05:46 08:21 PT 12.2 (10.0-12.5) sec APTT 41.2 H 38.5 H (22.0-30.0) sec 09/23/23 Range/Units 16:03 PT (10.0-12.5) sec APTT 39.9 H (22.0-30.0) sec CBC 09/23/23 Range/Units 05:46 WBC 19.6 H (3.8-10.6) k/uL RBC 3.43 L (3.80-5.40) m/uL Hgb 9.8 L (11.4-16.0) gm/dL Hct 32.2 L (34.0-46.0) % Plt Count 113 L (150-450) k/uL Comprehensive Metabolic Panel 09/23/23 Range/Units 05:46 Sodium 142 (137-145) mmol/L Potassium 4.1 (3.5-5.1) mmol/L Chloride 109 H (98-107) mmol/L Carbon Dioxide 22 (22-30) mmol/L BUN 65 H (7-17) mg/dL Creatinine 1.98 H (0.52-1.04) mg/dL Glucose 220 H (74-99) mg/dL Calcium 8.5 (8.4-10.2) mg/dL AST 108 H (14-36) U/L ALT 72 H (4-34) U/L Alkaline Phosphatase 154 H (38-126) U/L Total Protein 6.6 (6.3-8.2) g/dL Albumin 3.5 (3.5-5.0) g/dL Current Medications Generic Name Dose Route Start Last Admin Trade Name Freq PRN Reason Stop Dose Admin Acetaminophen 650 mg 09/22/23 15:07 Acetaminophen Tab 325 Mg Tab PO Q6HR PRN Mild Pain or Fever > 100.5 Albuterol/Ipratropium 3 ml 09/22/23 20:00 09/23/23 16:09 Ipratropium-Albuterol 3 Ml Neb INHALATION Not Given Q4HR [facility] Budesonide 1 mg 09/22/23 20:00 09/23/23 08:57 Budesonide 1 Mg/2 Ml Nebu INHALATION 1 mg RT-BID [facility] Administration Collagenase 1 applic 09/23/23 10:00 09/23/23 15:50 Collagenase 250 Unit/Gm Ointment 30 Gm Tube TOPICAL 1 applic DAILY [facility] Administration Protocol Dextrose/Water 25 ml 09/23/23 09:45 Dextrose 50% Syringe 50 Ml IVP PER PROTOCOL PRN Hypoglycemia Protocol Dextrose/Water 50 ml 09/23/23 09:45 Dextrose 50% Syringe 50 Ml IVP PER PROTOCOL PRN Hypoglycemia Protocol Docusate Sodium 100 mg 09/22/23 15:07 Docusate 100 Mg Cap PO BID PRN Constipation Formoterol Fumarate 20 mcg 09/22/23 20:00 09/23/23 08:57 Formoterol Fumarate 20 Mcg/2 Ml Nebu INHALATION 20 mcg RT-BID [facility] Administration Heparin Sodium (Porcine) 0 unit 09/22/23 15:59 09/23/23 16:43 Heparin Sodium 1,000 Un/Ml (10ml Vl) IV 2,145 unit PER PROTOCOL PRN Administration Low PTT Protocol Vancomycin HCl 1,500 mg/ 500 mls @ 167 mls/hr 09/23/23 16:00 09/23/23 15:49 Sodium Chloride IVPB 167 mls/hr Q24H [facility] Administration Piperacillin Sod/Tazobactam 100 mls @ 25 mls/hr 09/22/23 20:00 09/23/23 12:06 Sod 3.375 gm/ Sodium Chloride IVPB 25 mls/hr Q8H [facility] Administration Protocol Heparin Sodium/Sodium Chloride 250 mls @ 9.253 mls/hr 09/22/23 16:00 09/23/23 16:40 25,000 unit/ Sodium Chloride IV 16 units/kg/hr .Q24H [facility] 12.34 mls/hr Titration Protocol 12 UNITS/KG/HR Sodium Chloride 1,000 mls @ 10 mls/hr 09/23/23 08:00 09/23/23 09:53 Saline 0.9% IV 10 mls/hr .Q24H [facility] Administration Norepinephrine Bitartrate 4 mg 254 mls @ 35.959 mls/hr 09/23/23 16:45 / Sodium Chloride IV .Q7H4M [facility] Protocol 0.11 MCG/KG/MIN Insulin Aspart 0 unit 09/23/23 12:30 09/23/23 16:44 Insulin Aspart (Novolog) 100 Unit/Ml Vial SQ 8 unit ACHS [facility] Administration Protocol Melatonin 3 mg 09/22/23 15:07 Melatonin 3 Mg Tablet PO HS PRN Insomnia Methylprednisolone Sodium Succinate 60 mg 09/22/23 18:00 09/23/23 12:05 Methylprednisolone Sod Succi 125 Mg/2 Ml Vial IV 60 mg Q6HR [facility] Administration Naloxone HCl 0.2 mg 09/22/23 15:07 Naloxone 0.4 Mg/Ml 1 Ml Vial IV Q2M PRN Opioid Reversal Ondansetron HCl 4 mg 09/22/23 15:07 Ondansetron 4 Mg/2 Ml Vial IVP Q8HR PRN Nausea And Vomiting Pantoprazole Sodium 40 mg 09/23/23 09:00 09/23/23 09:53 Pantoprazole 40 Mg/10 Ml Vial IVP 40 mg DAILY [facility] Administration Intake and Output 09/23/23 09/23/23 09/23/23 06:59 14:59 22:59 Intake Total 229.565 933.341 772.314 Output Total 495 860 150 Balance -265.435 73.341 622.314 Intake: IV 220 550 Invasive Line 2 20 Invasive Line 3 30 10 Invasive Line 4 10 Invasive Line 5 10 Piperacillin-Tazobactam 3 100 .375 gm In Sodium Chloride 0.9% 100 ml @ 25 mls/hr IVPB Q8H [facility] Rx#: [id number] Sodium Chloride 0.9% 1, 70 20 000 ml @ 10 mls/hr IV . Q24H [facility] Rx#:[id number] Vancomycin 1,500 mg In 500 Sodium Chloride 0.9% 500 ml 500 ml @ 167 mls/hr IVPB Q24H [facility] Rx#: [id number] Intake, IV Titration 229.565 233.341 222.314 Amount Heparin Sod,Pork in 0.45% 168.559 65.136 NaCl 25,000 unit In 0.45 % NaCl 1 250ml.bag @ 12 UNITS/KG/HR 9.253 mls/hr IV .Q24H [facility] Rx#: [id number] Norepinephrine 4 mg In 129.565 64.782 157.178 Sodium Chloride 0.9% 250 ml @ 0.03 MCG/KG/MIN 8. 814 mls/hr IV .Q24H [facility] Rx#:[id number] Piperacillin-Tazobactam 3 100 .375 gm In Sodium Chloride 0.9% 100 ml @ 25 mls/hr IVPB Q8H [facility] Rx#: [id number] Oral 480 Output: Urine 495 860 150 Other: Voiding Method Indwelling Catheter Indwelling Catheter # Bowel Movements 1 1 0 Weight 85.8 kg 09/23/23 05:46 09/23/23 05:46
[2023-09-24] MEDS: ACETAMINOPHEN TAB 325 MG TAB PO PRN (02:56)
[2023-09-24] MEDS: MORPHINE SULFATE 2 MG/ML SYRINGE IVP STA (04:08)
[2023-09-24 06:06] LABS: Glucose,Whole Blood 334 mg/dL (70-110)
[2023-09-24 08:08] LABS: Anisocytosis Slight; HCT 29.3 % (34.0-46.0); HGB 9.1 gm/dL (11.4-16.0); Hypochromasia Slight; MCH 29.3 pg (25.0-35.0); MCHC 31.2 g/dL (31.0-37.0); MCV 94.2 fL (80.0-100.0); Mean Platelet Volume 9.3; Platelet Count 128 k/uL (150-450); RBC 3.11 m/uL (3.80-5.40); RDW 16.4 % (11.5-15.5); WBC 18.4 k/uL (3.8-10.6)
[2023-09-24 09:44] LABS: African American GFR (CKD) 25 (>60 ml/min/1.73 sqM); Anion Gap 11 mmol/L; Blood Urea Nitrogen 75 mg/dL (7-17); C Reactive Protein 5.7 mg/dL (<1.0); Calcium 8.1 mg/dL (8.4-10.2); Carbon Dioxide 17 mmol/L (22-30); Chloride 108 mmol/L (98-107); Glucose 265 mg/dL (74-99); Magnesium 1.9 mg/dL (1.6-2.3); Non-African American GFR(CKD) 22 (>60 ml/min/1.73 sqM); Potassium 3.6 mmol/L (3.5-5.1); Sodium 136 mmol/L (137-145)
[2023-09-24 11:18] LABS: Glucose,Whole Blood 299 mg/dL (70-110)
[2023-09-24] MEDS ORDERED: Potassium Replacement Protocol 1 EACH MISC MISCELLANE PRN (11:42)
[2023-09-24] MEDS: INSULIN ASPART (NovoLOG) 100 UNIT/ML VIAL SQ SCH (11:44)
[2023-09-24] MEDS: POTASSIUM BICARBONATE/CIT AC 20 MEQ TABLET.EFF NG-TUBE SCH (11:45)
--- NOTE | 2023-09-24 11:58 | P.PN ---
Subjective Progress Note Date: 09/24/23 88 year old F with PMH diabetes mellitus type 2 with peripheral neuropathy, chronic A-fib on Eliquis, COPD, hypertension, dyslipidemia, and chronic right lower extremity nonhealing ulcer who presented to the emergency department due to confusion, fever and hypoxia. Patient is currently on BiPAP and majority of history is obtained from the Son. Patient was at her usual state of health yesterday besides a dry cough she has been experiencing over the past week. This morning she was found incoherent, cyanotic at the lips and clammy. She was recently hospitalized for similar symptoms from 07/12-07/23 found of have septic shock from group B strep bacteremia thought to be from an infected RLE ulcer requiring pressors. Her PCP is Dr. Quesada and her Press Machine Feeder is Dr. Crouch. In the ED, she underwent extensive evaluation. BP 115/66, HR 163, T 100.3F, RR 26, 93% on 6L NC. CBC, Coag panel, CMP was done which showed WBC 17.8, Hg 10.3, Hct 32.8, Plt 145, bicarb 20, BUN 56, Cr 1.31, glu 171, T. bili 1.7, AST 71, ALT 38, alk phos 186. Lactic acid 4.2. Troponin 0.155, 1.43. EKG showed atrial fibrillation with RVR LBBB ventricular rate of 155. BNP 2020. COVID, RSV, Flu negative. UA trace ketones, trace LE, < 1 WBC. CXR showed signs of pulmonary venous congestion. She was given 2L NS bolus and given a dose of Cardizem IV. Her BP dropped as low as 66/33, she was given a dose of Hydrocortisone 100 mg IV. She was also started on BiPAP. Patient is admitted for atrial fibrillation, acute hypoxic respiratory failure and septic shock. Patient was started on Levophed, Vancomycin and Zosyn. Blood and urine culture was collected. 09/22 Patient was seen and examined. Much more awake and alert. BP 110/59, HR 98, RR 19, 96% on 3L. Currently on Leveophed at 0.1 mcg/kg/min. Maintained on heparin drip at 12 units/kg/hr. Antibiotics include Vancomycin and Zosyn. CBC WBC 19.6, Hg 9.8, Hct 32.2, Plt 113. ABG pH 7.32, pCO2 45. CMP Cl 109, BUN 56, Cr 1.98, glu 220, AST 108, ALT 72, alk phos 154. Troponin 2.91. CT brain negative for acute pathology. GB and Liver US shows hepatomegaly. Repeat EKG shows A-Fib with intraventricular conduction delay. CXR done this morning shows consistent pulmonary vascular congestion. Lasix 40 mg IV x 1 is ordered today. 09/23 Patient was seen and examined. Mentation improved, no complaints. Currently on Leveophed at 0.04 mcg/kg/min. Maintained on heparin drip at 18 units/kg/hr. ID consulted, Vancomycin discontinued yesterday and continued on Zosyn. Blood culture + gram positive cocci in clusters. Patient is started on Cefzolin 1g IV TID. Cardiology consulted, likely type II [place], continue heparin drip for 24H and transition to Eliquis. POC glucose ranging from 179-334 over the past 24H. 24 units of Novolog over the sliding scale during this time. We will start Novolog 8 units TID. Echocardiogram shows EF 45-50% with septum dyskinesis, mild MS, normally functioning bioprosthetic AV, severe TR, trace IA. CBC WBC 18.4, Hg 9.1, Hct 29.3. APTT 61.2. BMP Na 136, Cl 108, bicarb 17, BUN 75, Cr 2.01, glu 265, Ca 8.1. Procal 50.6. CRP 5.7. General: non toxic, no distress, appears at stated age Derm: warm, dry Head: atraumatic, normocephalic, symmetric Eyes: EOMI, no lid lag, pale sclera Mouth: no lip lesion, mucus membranes moist Cardiovascular: S1S2 irreg, no murmur Lungs: Decreased BS bilateral, no rhonchi, + rales , no accessory muscle use Ext: no gross muscle atrophy, no edema, no contractures, RLE ulcer without erythema or drainage Neuro: moving all 4 extremities Psych: Alert, oriented, appropriate affect Based on my assessment of this patient, this patient meets a high complexity level of care. Patient has an acute diagnosis of acute hypoxic respiratory failure, AFib RVR meeting criteria for septic shock that poses a threat to life or bodily fu nction. Acute metabolic encephalopathy due to below Septic shock with gram positive bacteremia: Blood culture + gram positive cocci in clusters x 2. Zosyn and Vancomycin discontinued. Start Cefzolin 1g IV TID (09/23). Repeat blood culture ordered. Gallbladder US shows hepatomegaly. Telemetry monitoring. Judicious use of fluid given pulmonary vascular congestion and need for BiPAP since patient is DNR/DNI. NS at 10 cc/hr. ID on board. Diabetes mellitus with hyperglycemia: Add Novolog 8 units TID. Accuchecks ACHS. Hypoglycemic precautions. Atrial fibrillation with RVR: Cardizem drip discontinued due to hypotension. Start amiodarone drip if necessary. Cardiology consulted. Acute hypoxic respiratory failure due to HFrEF exacerbation: Status post Lasix 40 mg IV 09/22. Improving. Echocardiogram as above. Cardiology on board. NSTEMI: Likely Type II [place]. Low dose heparin drip. Echocardiogram as above. Cardiology on board. MAE on CKD: Likely prerenal. Patient is on Levophed. Vancomycin is toxic. IV hydration as above. Renal US ordered. Transaminitis: GB and liver US as above. COPD not in acute exacerbation: SoluMedrol 60 mg IV Q6H. DuoNeb Q4H scheduled. Pulmicort 1 mg INH BID. Pulmonary on board. Hypertension: Hold Metoprolol and Lasix due to septic shock. Dyslipidemia: Lipitor 40 mg PO Q2D when able to PO. RLE nonhealing ulcer: Wound care consult. CODE STATUS: NO CODE. DVT Prophylaxis: Heparin drip. GI Prophylaxis: Protonix IV. Designated medical POA if patient is not able to make medical decisions for themselves: Son I have reviewed the following insurance healthcare consultant notes: Pulmonary, Cardiology, ID note. I have reviewed the results of the following tests: Echo. BCx. CBC. BMP. Procal. CRP I have ordered the following tests: Pending: CBC, BMP tomorrow. Renal US I have discussed the care of this patient with the following independent historian: I have independently interpreted the following test below: I have discussed the management of this patient with the following physician: Objective - Vital Signs Vital signs: Vital Signs Temp 98.5 F 09/24/23 06:00 Pulse 110 H 09/24/23 07:30 Resp 18 09/24/23 07:30 BP 99/55 09/24/23 07:30 Pulse Ox 97 09/24/23 07:30 FiO2 35 09/23/23 04:41 Intake & Output 09/23/23 09/24/23 09/24/23 18:59 06:59 18:59 Intake Total 1995.655 767.755 32.883 Output Total 1260 1110 45 Balance 735.655 -342.245 -12.117 Weight 91 kg Intake: IV 820 310 10 Invasive Line 2 20 Invasive Line 3 50 30 Invasive Line 4 20 30 Invasive Line 5 20 30 Piperacillin-Tazobactam 3 100 100 .375 gm In Sodium Chloride 0.9% 100 ml @ 25 mls/hr IVPB Q8H [facility] Rx#: [id number] Sodium Chloride 0.9% 1, 110 120 10 000 ml @ 10 mls/hr IV . Q24H [facility] Rx#:[id number] Vancomycin 1,500 mg In 500 Sodium Chloride 0.9% 500 ml 500 ml @ 167 mls/hr IVPB Q24H [facility] Rx#: [id number] Intake, IV Titration 455.655 337.755 22.883 Amount Heparin Sod,Pork in 0.45% 233.695 111.266 NaCl 25,000 unit In 0.45 % NaCl 1 250ml.bag @ 12 UNITS/KG/HR 9.253 mls/hr IV .Q24H [facility] Rx#: [id number] Norepinephrine 4 mg In 221.960 Sodium Chloride 0.9% 250 ml @ 0.03 MCG/KG/MIN 8. 814 mls/hr IV .Q24H [facility] Rx#:[id number] Norepinephrine 4 mg In 226.489 22.883 Sodium Chloride 0.9% 250 ml @ 0.11 MCG/KG/MIN 35. 959 mls/hr IV .Q7H4M [facility] Rx#:[id number] Oral 720 120 Output: Urine 1260 1110 45 Other: Voiding Method Indwelling Catheter Indwelling Catheter # Bowel Movements 0 1 - Labs CBC & Chem 7: 09/24/23 07:48 09/24/23 07:48 Labs: Abnormal Lab Results - Last 24 Hours (Table) 09/23/23 09/23/23 09/23/23 Range/Units 08:20 08:21 11:39 APTT 38.5 H (22.0-30.0) sec POC Glucose (mg/dL) 232 H 257 H (70-110) mg/dL 09/23/23 09/23/23 09/23/23 Range/Units 16:03 16:42 20:30 APTT 39.9 H (22.0-30.0) sec POC Glucose (mg/dL) 302 H 179 H (70-110) mg/dL 09/23/23 09/24/23 Range/Units 23:54 06:03 APTT 41.1 H (22.0-30.0) sec POC Glucose (mg/dL) 334 H (70-110) mg/dL Microbiology - Last 24 Hours (Table) 09/22/23 12:47 Blood Culture Gram Stain - Preliminary Blood Blood Culture - Preliminary 09/22/23 12:31 Blood Culture Gram Stain - Preliminary Blood Blood Culture - Preliminary 09/22/23 13:30 Urine Culture - Final Urine,Voided
--- NOTE | 2023-09-24 12:41 | P.PN ---
Subjective Progress Note Date: 09/24/23 Principal diagnosis: Respiratory failure. Pulmonary consult dated September 22, 2023. 88-year-old female who was seen by Dr. Terrazas in the emergency department, for difficulty breathing, and elevated temperature. According to the family, the patient was fine yesterday, but today, was noted to have a hard time breathing, had some confusion and mental status changes, had very low saturations, blue lips, and generally would just not well. Also, apparently, she has been coughing quite a bit for the last few days. The patient is seen in the emergency department, in the trauma room. A family member is at the bedside. He gives most of the history. The patient is placed on BiPAP, with settings at 10/5 and 50%. The patient did receive a liter of saline, and was on a Cardizem drip at 5 mg an hour, but that was discontinued. The patient is a DO NOT RESUSCITATE patient. The patient has a history of atrial fibrillation, COPD, diabetes, hyperlipidemia, hypertension, dementia, and osteoarthritis. The patient has had a previous transcatheter aortic valve replacement as well. Recently, the patient has been following at the wound clinic for nonhealing leg ulcerations and wounds. Current laboratory data includes a white count of 17.8, hemoglobin 10.3, hematocrit 32.8, and a platelet count of 145,000. Sodium 139, potassium 4.3, chlorides 106, CO2 20, anion gap 13, BUN 56, and creatinine 1.31. Lactic acid initially was 4.2. Repeat was 1.8. Glucose was 171. Troponin was 0.155 and 1.430. N-terminal proBNP is 2020. The patient tested negative for influenza, AMB, RSV, coronavirus. Urine had trace protein, trace ketones, trace leukocyte esterase, but no bacteria. EKG shows atrial fibrillation with a rapid ventricular response, 155 bpm. Chest x-ray shows diffuse haziness, likely consistent with fluid overload/CHF. Progress note dated September 23, 2023. 88-year-old female well-known to me. The patient was seen in the emergency department yesterday, with respiratory failure. She was brought in because of low saturations, fever, and, had a chest x-ray that was consistent with fluid overload/CHF. The patient was also having episodes of atrial fibrillation with RVR. She is seen today in the ICU, room 267. She had arterial blood gases which show pO2 of 200, pCO2 of 45, pH is 7.32. The patient was on BiPAP, with settings of 10/5 and 35%. Currently she is on 3 L of oxygen. The patient continues on heparin via weight-based protocol, norepinephrine at 2.5 mcg/min, and saline at 75 cc an hour, which will be converted to keep vein open IV. She also continues on Zosyn and vancomycin. She will get 1 dose of Lasix today, 40 mg IV push. Current labs include a white count 19.6, hemoglobin 9.8, hematocrit 32.2, and a platelet count of 113,000. PTT is 38.5. Sodium 142, potassium 4.1, chlorides 109, CO2 22, anion gap 11, BUN 65, and creatinine 1.98. Glucose is 257. AST is 108. ALT is 72. Procalcitonin level is elevated at 0.54. Troponin was 2.910. N-terminal proBNP was 2020. Progress note dated September 24, 2023. 88-year-old female, seen in room 267. She is laying in bed, on room air. She is getting saline at 10 cc an hour, and norepinephrine at 1 mcg/min. She continues on IV heparin. She did not use the BiPAP device last night, and I have asked the nurses to discontinue the BiPAP from her room. Current laboratory data includes a white count 18.4, hemoglobin 9.1, hematocrit 29.3, platelet count 128,000. PTT is 61.2. Sodium 136, potassium 3.6, chlorides 108, CO2 17, anion gap 11, BUN 75, and creatinine 2.01. Glucose is 299. Procalcitonin level is 50.6. Thus far cultures are negative. No chest x-ray today. The patient continues on Ancef. Objective - Vital Signs Vital signs: Vital Signs Temp 97.8 F 09/24/23 12:00 Pulse 125 H 09/24/23 12:00 Resp 20 09/24/23 12:00 BP 100/61 09/24/23 12:00 Pulse Ox 81 L 09/24/23 12:00 FiO2 35 09/23/23 04:41 Intake & Output 09/23/23 09/24/23 09/24/23 18:59 06:59 18:59 Intake Total 1995.655 767.755 333.572 Output Total 1260 1110 325 Balance 735.655 -342.245 8.572 Weight 91 kg Intake: IV 820 310 170 Invasive Line 2 20 Invasive Line 3 50 30 20 Invasive Line 4 20 30 20 Invasive Line 5 20 30 20 Piperacillin-Tazobactam 3 100 100 .375 gm In Sodium Chloride 0.9% 100 ml @ 25 mls/hr IVPB Q8H [facility] Rx#: [id number] Sodium Chloride 0.9% 1, 110 120 60 000 ml @ 10 mls/hr IV . Q24H [facility] Rx#:[id number] Vancomycin 1,500 mg In 500 Sodium Chloride 0.9% 500 ml 500 ml @ 167 mls/hr IVPB Q24H [facility] Rx#: [id number] ceFAZolin 1,000 mg In 50 Sodium Chloride 0.9% 50 ml @ 100 mls/hr IVPB Q8HR [facility] Rx#:[id number] Intake, IV Titration 455.655 337.755 163.572 Amount Heparin Sod,Pork in 0.45% 233.695 111.266 101.787 NaCl 25,000 unit In 0.45 % NaCl 1 250ml.bag @ 12 UNITS/KG/HR 9.253 mls/hr IV .Q24H [facility] Rx#: [id number] Norepinephrine 4 mg In 221.960 Sodium Chloride 0.9% 250 ml @ 0.03 MCG/KG/MIN 8. 814 mls/hr IV .Q24H [facility] Rx#:[id number] Norepinephrine 4 mg In 226.489 61.785 Sodium Chloride 0.9% 250 ml @ 0.11 MCG/KG/MIN 35. 959 mls/hr IV .Q7H4M [facility] Rx#:[id number] Oral 720 120 Output: Urine 1260 1110 325 Other: Voiding Method Indwelling Catheter Indwelling Catheter Indwelling Catheter # Bowel Movements 0 1 - Exam Patient much more awake and responsive today. Currently just on room air. HEENT examination is grossly unremarkable. Neck supple. Full range of motion. No adenopathy thyromegaly or neck vein distention. Cardiovascular examination reveals an irregular rhythm and rate. S1-S2 normal. No S3 or S4. No discernible murmur noted. Sounds distant. Heart rate is 90 bpm. Lungs reveal scattered rhonchi. No wheezes. Breath sounds equal. Saturations are 94% on room air. Abdomen soft without bowel sounds. No masses. Extremities are intact. Chronic venous stasis changes noted. No cyanosis. No clubbing. Skin reveals chronic changes. Neurologic examination reveals the patient to be much more awake and alert today. - Labs CBC & Chem 7: 09/24/23 07:48 09/24/23 07:48 Labs: Abnormal Lab Results - Last 24 Hours (Table) 09/23/23 09/23/23 09/23/23 Range/Units 16:03 16:42 20:30 WBC (3.8-10.6) k/uL RBC (3.80-5.40) m/uL Hgb (11.4-16.0) gm/dL Hct (34.0-46.0) % RDW (11.5-15.5) % Plt Count (150-450) k/uL APTT 39.9 H (22.0-30.0) sec Sodium (137-145) mmol/L Chloride (98-107) mmol/L Carbon Dioxide (22-30) mmol/L BUN (7-17) mg/dL Creatinine (0.52-1.04) mg/dL Glucose (74-99) mg/dL POC Glucose (mg/dL) 302 H 179 H (70-110) mg/dL Calcium (8.4-10.2) mg/dL C-Reactive Protein (<1.0) mg/dL Procalcitonin (0.02-0.09) ng/mL 09/23/23 09/24/23 09/24/23 Range/Units 23:54 06:03 07:48 WBC 18.4 H (3.8-10.6) k/uL RBC 3.11 L (3.80-5.40) m/uL Hgb 9.1 L (11.4-16.0) gm/dL Hct 29.3 L (34.0-46.0) % RDW 16.4 H (11.5-15.5) % Plt Count 128 L (150-450) k/uL APTT 41.1 H (22.0-30.0) sec Sodium (137-145) mmol/L Chloride (98-107) mmol/L Carbon Dioxide (22-30) mmol/L BUN (7-17) mg/dL Creatinine (0.52-1.04) mg/dL Glucose (74-99) mg/dL POC Glucose (mg/dL) 334 H (70-110) mg/dL Calcium (8.4-10.2) mg/dL C-Reactive Protein (<1.0) mg/dL Procalcitonin (0.02-0.09) ng/mL 09/24/23 09/24/23 09/24/23 Range/Units 07:48 07:48 07:48 WBC (3.8-10.6) k/uL RBC (3.80-5.40) m/uL Hgb (11.4-16.0) gm/dL Hct (34.0-46.0) % RDW (11.5-15.5) % Plt Count (150-450) k/uL APTT 61.2 H (22.0-30.0) sec Sodium 136 L (137-145) mmol/L Chloride 108 H (98-107) mmol/L Carbon Dioxide 17 L (22-30) mmol/L BUN 75 H (7-17) mg/dL Creatinine 2.01 H (0.52-1.04) mg/dL Glucose 265 H (74-99) mg/dL POC Glucose (mg/dL) (70-110) mg/dL Calcium 8.1 L (8.4-10.2) mg/dL C-Reactive Protein 5.7 H (<1.0) mg/dL Procalcitonin 50.60 H (0.02-0.09) ng/mL 09/24/23 Range/Units 11:17 WBC (3.8-10.6) k/uL RBC (3.80-5.40) m/uL Hgb (11.4-16.0) gm/dL Hct (34.0-46.0) % RDW (11.5-15.5) % Plt Count (150-450) k/uL APTT (22.0-30.0) sec Sodium (137-145) mmol/L Chloride (98-107) mmol/L Carbon Dioxide (22-30) mmol/L BUN (7-17) mg/dL Creatinine (0.52-1.04) mg/dL Glucose (74-99) mg/dL POC Glucose (mg/dL) 299 H (70-110) mg/dL Calcium (8.4-10.2) mg/dL C-Reactive Protein (<1.0) mg/dL Procalcitonin (0.02-0.09) ng/mL Microbiology - Last 24 Hours (Table) 09/22/23 12:47 Blood Culture Gram Stain - Preliminary Blood Blood Culture - Preliminary 09/22/23 12:31 Blood Culture Gram Stain - Preliminary Blood Blood Culture - Preliminary 09/22/23 13:30 Urine Culture - Final Urine,Voided Assessment and Plan Assessment: Acute hypoxemic respiratory failure, possibly multifactorial, likely related to atrial fibrillation, fluid overload, and or pneumonia. Rule out non-ST segment elevation myocardial infarction. Atrial fibrillation with RVR. Cough and fever, rule out pneumonia. Mild nonanion gap metabolic acidosis. Mild lactic acidosis. History of hyperlipidemia. Diabetes mellitus. Prior history of transcatheter aortic valve replacement. History of dementia. History of COPD. History of hyperlipidemia. History of hypertension. Chronic lower extremity wounds. Plan: Plan dated September 22, 2023. The patient is seen in the emergency department. Family members at bedside. The patient is currently on BiPAP. The patient did receive a liter of saline. The patient was on a Cardizem drip, but that has been turned off. The patient may have sustained a non-ST segment elevation myocardial infarction. She came in with atrial fibrillation with rapid ventricular response, and a chest x-ray which suggest fluid overload. BNP was somewhat elevated. The patient was placed on antibiotics in the form of vancomycin and Zosyn. A procalcitonin level was ordered. Labs, x-rays, medications are reviewed. Prognosis is poor. The patient is a DO NOT RESUSCITATE patient. That order was placed down. Plan dated September 23, 2023. Surprisingly, the patient is much more awake and alert today. She is just on 3 L. Yesterday when we saw her in the emergency department, she was poorly responsive at best. The patient continues on antibiotics. The procalcitonin level was a bit elevated. The patient also continues on a small amount of norepinephrine at 2.5 mcg/min. The patient continues on Zosyn and vancomycin. Will give her a dose of Lasix 40 mg IV push today. Her BiPAP settings are 10/5 and 35%. We will continue to follow make recommendations along the way. The patient does continue on IV heparin as well. She may have sustained a non-ST segment elevation myocardial infarction. Plan dated September 24, 2023. The patient is seen in room 267, intensive care unit. The patient has been wean ed to room air. She is getting saline at 10 cc an hour. She continues on IV heparin, for possible non-ST segment elevation myocardial infarction. The patient also continues on norepinephrine at 1 mcg/min. Labs, x-rays, medications are reviewed. She is currently on Ancef. We will continue to fo llow the patient, make recommendations along the way. She did not use the BiPAP device last night it can be discontinued from the room. We will continue to follow. Patient is not yet stable enough to leave the intensive care unit. Time with Patient: Greater than 30
--- NOTE | 2023-09-24 13:23 | US ---
EXAMINATION TYPE: US renals and bladder DATE OF EXAM: 09/24/2023 Exam done portable in ICU COMPARISON: NONE CLINICAL INDICATION: Female, 88 years old with history of MAE; EXAM MEASUREMENTS: Right Kidney: 11.2 x 4.4 x 3.7 cm Left Kidney: 9.5 x 4.7 x 4.5 cm Right Kidney: 0.5cm echogenic focus inferior pole Left Kidney: visualized portions wnl, limited by overlying bowel gas Bladder: not distended, bang catheter There is no evidence for hydronephrosis at this point in time. No solid masses are identified. IMPRESSION: Limited study nonobstructing calculus lower pole right kidney.
[2023-09-24 16:06] LABS: Glucose,Whole Blood 278 mg/dL (70-110)
--- NOTE | 2023-09-24 16:29 | P.PN ---
Subjective Progress Note Date: 09/24/23 Principal diagnosis: Reason for follow-up is sepsis and bacteremia Patient is a 88-year-old female with a past medical history being for diabetes mellitus hypertension hyperlipidemia COPD atrial fibrillation patient did have a chronic nonhealing wound to the right lower extremity, presented to the hospital for evaluation of difficulty breathing patient did have a fever with concern for possible pneumonia versus abdominal source. On today's evaluation that is 09/24/2023,the patient did have resolution of her fever and is afebrile today, patient is breathing comfortably on a 2 L nasal cannula oxygen he denies having any chest pain did have occasional cough no spu evon production no abdominal pain or pain to the right lower extremity. Patient white count is down to 10.4, creatinine is 2.01 procalcitonin is 50.60 chest x-ray still showing no pneumonia, blood culture with gram-positive cocci ID sensitivities pending Objective - Vital Signs Vital signs: Vital Signs Temp 97.8 F 09/24/23 12:00 Pulse 125 H 09/24/23 12:00 Resp 20 09/24/23 12:00 BP 100/61 09/24/23 12:00 Pulse Ox 81 L 09/24/23 12:00 FiO2 35 09/23/23 04:41 Intake & Output 09/23/23 09/24/23 09/24/23 18:59 06:59 18:59 Intake Total 1995.655 767.755 333.572 Output Total 1260 1110 325 Balance 735.655 -342.245 8.572 Weight 91 kg Intake: IV 820 310 170 Invasive Line 2 20 Invasive Line 3 50 30 20 Invasive Line 4 20 30 20 Invasive Line 5 20 30 20 Piperacillin-Tazobactam 3 100 100 .375 gm In Sodium Chloride 0.9% 100 ml @ 25 mls/hr IVPB Q8H [facility] Rx#: [id number] Sodium Chloride 0.9% 1, 110 120 60 000 ml @ 10 mls/hr IV . Q24H [facility] Rx#:[id number] Vancomycin 1,500 mg In 500 Sodium Chloride 0.9% 500 ml 500 ml @ 167 mls/hr IVPB Q24H [facility] Rx#: [id number] ceFAZolin 1,000 mg In 50 Sodium Chloride 0.9% 50 ml @ 100 mls/hr IVPB Q8HR [facility] Rx#:[id number] Intake, IV Titration 455.655 337.755 163.572 Amount Heparin Sod,Pork in 0.45% 233.695 111.266 101.787 NaCl 25,000 unit In 0.45 % NaCl 1 250ml.bag @ 12 UNITS/KG/HR 9.253 mls/hr IV .Q24H [facility] Rx#: [id number] Norepinephrine 4 mg In 221.960 Sodium Chloride 0.9% 250 ml @ 0.03 MCG/KG/MIN 8. 814 mls/hr IV .Q24H [facility] Rx#:[id number] Norepinephrine 4 mg In 226.489 61.785 Sodium Chloride 0.9% 250 ml @ 0.11 MCG/KG/MIN 35. 959 mls/hr IV .Q7H4M [facility] Rx#:[id number] Oral 720 120 Output: Urine 1260 1110 325 Other: Voiding Method Indwelling Catheter Indwelling Catheter Indwelling Catheter # Bowel Movements 0 1 - Exam GENERAL DESCRIPTION: An elderly female lying in bed in no distress RESPIRATORY SYSTEM: Unlabored breathing , decreased breath sounds at bases HEART: S1 S2 regular rate and rhythm , ABDOMEN: Soft , no tenderness EXTREMITIES: Right leg wound is currently dressed - Labs CBC & Chem 7: 09/24/23 07:48 09/24/23 07:48 Labs: Abnormal Lab Results - Last 24 Hours (Table) 09/23/23 09/23/23 09/23/23 Range/Units 16:03 16:42 20:30 WBC (3.8-10.6) k/uL RBC (3.80-5.40) m/uL Hgb (11.4-16.0) gm/dL Hct (34.0-46.0) % RDW (11.5-15.5) % Plt Count (150-450) k/uL APTT 39.9 H (22.0-30.0) sec Sodium (137-145) mmol/L Chloride (98-107) mmol/L Carbon Dioxide (22-30) mmol/L BUN (7-17) mg/dL Creatinine (0.52-1.04) mg/dL Glucose (74-99) mg/dL POC Glucose (mg/dL) 302 H 179 H (70-110) mg/dL Calcium (8.4-10.2) mg/dL C-Reactive Protein (<1.0) mg/dL Procalcitonin (0.02-0.09) ng/mL 09/23/23 09/24/23 09/24/23 Range/Units 23:54 06:03 07:48 WBC 18.4 H (3.8-10.6) k/uL RBC 3.11 L (3.80-5.40) m/uL Hgb 9.1 L (11.4-16.0) gm/dL Hct 29.3 L (34.0-46.0) % RDW 16.4 H (11.5-15.5) % Plt Count 128 L (150-450) k/uL APTT 41.1 H (22.0-30.0) sec Sodium (137-145) mmol/L Chloride (98-107) mmol/L Carbon Dioxide (22-30) mmol/L BUN (7-17) mg/dL Creatinine (0.52-1.04) mg/dL Glucose (74-99) mg/dL POC Glucose (mg/dL) 334 H (70-110) mg/dL Calcium (8.4-10.2) mg/dL C-Reactive Protein (<1.0) mg/dL Procalcitonin (0.02-0.09) ng/mL 09/24/23 09/24/23 09/24/23 Range/Units 07:48 07:48 07:48 WBC (3.8-10.6) k/uL RBC (3.80-5.40) m/uL Hgb (11.4-16.0) gm/dL Hct (34.0-46.0) % RDW (11.5-15.5) % Plt Count (150-450) k/uL APTT 61.2 H (22.0-30.0) sec Sodium 136 L (137-145) mmol/L Chloride 108 H (98-107) mmol/L Carbon Dioxide 17 L (22-30) mmol/L BUN 75 H (7-17) mg/dL Creatinine 2.01 H (0.52-1.04) mg/dL Glucose 265 H (74-99) mg/dL POC Glucose (mg/dL) (70-110) mg/dL Calcium 8.1 L (8.4-10.2) mg/dL C-Reactive Protein 5.7 H (<1.0) mg/dL Procalcitonin 50.60 H (0.02-0.09) ng/mL 09/24/23 Range/Units 11:17 WBC (3.8-10.6) k/uL RBC (3.80-5.40) m/uL Hgb (11.4-16.0) gm/dL Hct (34.0-46.0) % RDW (11.5-15.5) % Plt Count (150-450) k/uL APTT (22.0-30.0) sec Sodium (137-145) mmol/L Chloride (98-107) mmol/L Carbon Dioxide (22-30) mmol/L BUN (7-17) mg/dL Creatinine (0.52-1.04) mg/dL Glucose (74-99) mg/dL POC Glucose (mg/dL) 299 H (70-110) mg/dL Calcium (8.4-10.2) mg/dL C-Reactive Protein (<1.0) mg/dL Procalcitonin (0.02-0.09) ng/mL Microbiology - Last 24 Hours (Table) 09/22/23 12:47 Blood Culture Gram Stain - Preliminary Blood Blood Culture - Preliminary 09/22/23 12:31 Blood Culture Gram Stain - Preliminary Blood Blood Culture - Preliminary 09/22/23 13:30 Urine Culture - Final Urine,Voided Assessment and Plan (1) Leg wound, right Current Visit: Yes Status: Acute Code(s): S81.801A - UNSPECIFIED OPEN WOUND, RIGHT LOWER LEG, INITIAL ENCOUNTER SNOMED Code(s): 34815102065656547 (2) Bacteremia Current Visit: No Status: Acute Code(s): R78.81 - BACTEREMIA SNOMED Code(s): 6878209 Plan: 1patient presented to hospital with sepsis in this patient who did have a fever tachycardia elevated white count source likely pneumonia and the patient did have some respiratory symptoms congested cough infiltrate seen on the chest x- ray patient did have a nonhealing wound to the right lower extremity however overall wound base looks clean with no slough tissue no surrounding redness or foul-smelling drainage urine was negative patient did have elevated liver enzymes possible related to hepatic congestion from CHF but other etiologies not excluded, ultrasound of the gallbladder was negative 2-patient did have a positive blood culture which could not be notified with a question of possible contamination versus true pathogen 3-blood cultures has been repeated document clearance 4-adjust antibiotic to Unasyn while waiting for the workup to be completed Dictation was produced using [employer] dictation software. please excuse any grammatical, word or spelling errors. Time with Patient: Less than 30
[2023-09-24] MEDS ORDERED: PIPERACILLIN-TAZOBACTAM 3.375 GM in SODIUM CHLORIDE 0.9% 100 ML IVPB SCH (16:30)
[2023-09-24] MEDS: DEXTROSE 5% IN WATER 100 ML with AMIODARONE 150 MG IV ONE (18:08)
[2023-09-24] MEDS: AMPICILLIN-SULBACTAM 3 GM in SODIUM CHLORIDE 0.9% 100 ML IVPB SCH (18:10)
[2023-09-24] MEDS: AMIODARONE 360 MG in DEXTROSE 5% IN WATER 200 ML IV ONE (18:23)
[2023-09-24 21:01] LABS: Glucose,Whole Blood 213 mg/dL (70-110)
--- NOTE | 2023-09-24 21:50 | P.PN ---
Subjective HISTORY OF PRESENTING ILLNESS This is a pleasant 88-year-old with past medical history significant for aortic stenosis status post TAVR, chronic atrial fibrillation, mild nonobstructive coronary artery disease. She follows in the office with Dr. Crouch. patient is poor historian and history is obtained by chart. She apparently has been having some SOB and fever as well as worsened confusion. Per history she had a cough the last few days as well. Patient had been found by son with cyanotic lips confused and clammy. She was found to be in Afib with RVR on arrival and given Cardizem with BP dropping significantly to 66/33 and was given stress dose steroids as well as IVF bolus with improvement in BP's. EKG shows Afib with RVR with LBBB. CXray with pulmonary vascular congestion. Initially she was requiring BIPAP however this has been weaned. Echo was performed which showed EF 35-40% with normally functioning TAVR valve, severe RV dilation, severe tricuspid regurgitation. WBC 17.8, HGB 10.3, Cr 1.31, Lactic acid 4.2, Troponin 0.15, 1.4, 2.9, proBNP 2019, procalcitonin 0.54, viral panel negative, Cr increased to 1.98 today. Her pulse ox was in the 50's per EMS on presentation. PRIOR CARDIAC TESTING Cardiac cath from 2019 shows minimal nonobstructive coronary artery disease with severe aortic stenosis. Patient had a TAVR procedure done thereafter. 09/23 Patient seen and examined. Patient denies any chest pain or pressure. Does have occasional cough. No fevers. White blood cell count 10.4, creatinine 2.0 and pro-calcitonin significantly elevated. Blood cultures with gram-positive cocci. patient remains in A. fib with heart rates elevated in the 110 to 1:30 range. PHYSICAL EXAMINATION Vital signs reviewed. Head: Normocephalic. Eyes: Sclerae nonicteric. Neck: Brisk carotid upstroke, no jugular venous distention. Lungs: Clear to auscultation. Heart: Irregular rate and rhythm, S1-S2, no S3, systolic ejection murmur audible in the aortic area. Brisk carotid upstrokes. Abdomen: Soft nontender, positive bowel sounds no organomegaly. Extremities: ASSESSMENT NSTEMI likely type 2 mechanism from hypoxia pulse ox in the 50's by EMS and hypotension with BP's into the 60's Chronic atrial fibrillation initially RVR, improved Aortic Stenosis status post TAVR Mild coronary artery disease by cath 2019 Cardiomyopathy EF 35-40%, may be stress induced cardiomyopathy, sepsis or other Polyvalvular disease Severe RV enlargement Chronic systolic heart failure Septic shock COPD Hypertension Chronic right lower extremity nonhealing wound PLAN Majority of presentation appears related to sepsis with not feeling well for a week, a cough, fevers and leukocytosis, elevated procalitonin NSTEMI likely related to severe hypoxia pulse ox in the 50's and hypotension with systolics in the 60's Chest Xray with concern of vascular congestion however has had chronically abnormal CXray and responded to IVF Multiple abnormalities on Echo with polyvalvular disease, biatrial enlargement, and severe RV dilation consistent with more advanced heart failure Gentle IVF and monitor response with MAE likely related to ATN from hypoxia and hypotension Given age, dementia, relatively normal cath from 2019 and most likely ex planation for NSTEMI being type 2, without chest pain would recommend conservative approach and patient not a good interventional candidate currently with MAE stop heparin drip and transition back to Eliquis 5mg bid. If persistent bacteremia or concern of endocarditis, consider JOHANN Objective - Vital Signs Vital signs: Vital Signs Temp 98.2 F 09/24/23 20:00 Pulse 114 H 09/24/23 21:15 Resp 21 09/24/23 21:15 BP 111/64 09/24/23 21:15 Pulse Ox 97 09/24/23 21:15 FiO2 35 09/23/23 04:41 Intake & Output 09/24/23 09/24/23 09/25/23 06:59 18:59 06:59 Intake Total 767.755 923.572 540 Output Total 1110 675 50 Balance -342.245 248.572 490 Weight 91 kg Intake: IV 310 260 40 Invasive Line 3 30 30 10 Invasive Line 4 30 30 10 Invasive Line 5 30 30 10 Piperacillin-Tazobactam 3 100 .375 gm In Sodium Chloride 0.9% 100 ml @ 25 mls/hr IVPB Q8H ERIK Rx#: [id number] Sodium Chloride 0.9% 1, 120 120 10 000 ml @ 10 mls/hr IV . Q24H ERIK Rx#:[id number] ceFAZolin 1,000 mg In 50 Sodium Chloride 0.9% 50 ml @ 100 mls/hr IVPB Q8HR ERIK Rx#:[id number] Intake, IV Titration 337.755 163.572 Amount Heparin Sod,Pork in 0.45% 111.266 101.787 NaCl 25,000 unit In 0.45 % NaCl 1 250ml.bag @ 12 UNITS/KG/HR 9.253 mls/hr IV .Q24H ERIK Rx#: [id number] Norepinephrine 4 mg In 226.489 61.785 Sodium Chloride 0.9% 250 ml @ 0.11 MCG/KG/MIN 35. 959 mls/hr IV .Q7H4M ERIK Rx#:[id number] Oral 120 500 500 Output: Urine 1110 675 50 Other: Voiding Method Indwelling Catheter Indwelling Catheter # Bowel Movements 1 - Labs CBC & Chem 7: 09/24/23 07:48 09/24/23 07:48 Labs: Abnormal Lab Results - Last 24 Hours (Table) 09/23/23 09/24/23 09/24/23 Range/Units 23:54 06:03 07:48 WBC 18.4 H (3.8-10.6) k/uL RBC 3.11 L (3.80-5.40) m/uL Hgb 9.1 L (11.4-16.0) gm/dL Hct 29.3 L (34.0-46.0) % RDW 16.4 H (11.5-15.5) % Plt Count 128 L (150-450) k/uL APTT 41.1 H (22.0-30.0) sec Sodium (137-145) mmol/L Chloride (98-107) mmol/L Carbon Dioxide (22-30) mmol/L BUN (7-17) mg/dL Creatinine (0.52-1.04) mg/dL Glucose (74-99) mg/dL POC Glucose (mg/dL) 334 H (70-110) mg/dL Calcium (8.4-10.2) mg/dL C-Reactive Protein (<1.0) mg/dL Procalcitonin (0.02-0.09) ng/mL 09/24/23 09/24/23 09/24/23 Range/Units 07:48 07:48 07:48 WBC (3.8-10.6) k/uL RBC (3.80-5.40) m/uL Hgb (11.4-16.0) gm/dL Hct (34.0-46.0) % RDW (11.5-15.5) % Plt Count (150-450) k/uL APTT 61.2 H (22.0-30.0) sec Sodium 136 L (137-145) mmol/L Chloride 108 H (98-107) mmol/L Carbon Dioxide 17 L (22-30) mmol/L BUN 75 H (7-17) mg/dL Creatinine 2.01 H (0.52-1.04) mg/dL Glucose 265 H (74-99) mg/dL POC Glucose (mg/dL) (70-110) mg/dL Calcium 8.1 L (8.4-10.2) mg/dL C-Reactive Protein 5.7 H (<1.0) mg/dL Procalcitonin 50.60 H (0.02-0.09) ng/mL 09/24/23 09/24/23 09/24/23 Range/Units 11:17 16:05 20:59 WBC (3.8-10.6) k/uL RBC (3.80-5.40) m/uL Hgb (11.4-16.0) gm/dL Hct (34.0-46.0) % RDW (11.5-15.5) % Plt Count (150-450) k/uL APTT (22.0-30.0) sec Sodium (137-145) mmol/L Chloride (98-107) mmol/L Carbon Dioxide (22-30) mmol/L BUN (7-17) mg/dL Creatinine (0.52-1.04) mg/dL Glucose (74-99) mg/dL POC Glucose (mg/dL) 299 H 278 H 213 H (70-110) mg/dL Calcium (8.4-10.2) mg/dL C-Reactive Protein (<1.0) mg/dL Procalcitonin (0.02-0.09) ng/mL Microbiology - Last 24 Hours (Table) 09/24/23 04:47 Gram Stain - Final Sputum Sputum Culture - Final 09/22/23 12:47 Blood Culture Gram Stain - Preliminary Blood Blood Culture - Preliminary 04/23/24 12:31 Blood Culture Gram Stain - Preliminary Blood Blood Culture - Preliminary 09/22/23 13:30 Urine Culture - Final Urine,Voided
[2023-09-24] MEDS: APIXABAN 2.5 MG TABLET PO SCH (22:00)
[2023-09-25] MEDS: AMIODARONE 450 MG in DEXTROSE 5% IN WATER 250 ML IV SCH (00:28)
[2023-09-25 06:14] LABS: African American GFR (CKD) 25 (>60 ml/min/1.73 sqM); Anion Gap 8 mmol/L; Blood Urea Nitrogen 72 mg/dL (7-17); Calcium 8.4 mg/dL (8.4-10.2); Carbon Dioxide 20 mmol/L (22-30); Chloride 106 mmol/L (98-107); Glucose 194 mg/dL (74-99); Non-African American GFR(CKD) 22 (>60 ml/min/1.73 sqM); Potassium 3.7 mmol/L (3.5-5.1); Sodium 134 mmol/L (137-145)
--- NOTE | 2023-09-25 07:23 | XR ---
EXAMINATION TYPE: XR chest 1V portable DATE OF EXAM: 09/25/2023 HISTORY: Shortness of breath. COMPARISON: 09/23/2023 TECHNIQUE: Single view of the chest is submitted. FINDINGS: Demonstrated are scattered senescent parenchymal change. Continued cardiomegaly with pulmonary venous congestion scattered infiltrates. Correlate for congesti ve failure. Infiltrates of other etiology not excluded. Correlate clinically. Hilar and mediastinal structures are within normal limits. Degenerative changes are seen of the dorsal spine. IMPRESSION: 1. Continued cardiomegaly with pulmonary venous congestion scattered infiltrates. Correlate for may estive failure. Infiltrates of other etiology not excluded. Correlate clinically.
[2023-09-25 07:36] LABS: Anisocytosis Slight; HCT 28.3 % (34.0-46.0); MCH 29.2 pg (25.0-35.0); MCV 91.2 fL (80.0-100.0); Mean Platelet Volume 9.2; Platelet Count 127 k/uL (150-450); RDW 16.6 % (11.5-15.5); WBC 17.7 k/uL (3.8-10.6)
[2023-09-25] MEDS: PANTOPRAZOLE 40 MG TABLET PO SCH (08:14)
[2023-09-25] MEDS: POTASSIUM BICARBONATE/CIT AC 20 MEQ TABLET.EFF NG-TUBE SCH (08:15)
[2023-09-25 11:38] LABS: Glucose,Whole Blood 210 mg/dL (70-110)
--- NOTE | 2023-09-25 11:53 | P.PN ---
Subjective Progress Note Date: 09/25/23 Principal diagnosis: Respiratory failure. Pulmonary consult dated September 22, 2023. 88-year-old female who was seen by Dr. Terrazas in the emergency department, for difficulty breathing, and elevated temperature. According to the family, the patient was fine yesterday, but today, was noted to have a hard time breathing, had some confusion and mental status changes, had very low saturations, blue lips, and generally would just not well. Also, apparently, she has been coughing quite a bit for the last few days. The patient is seen in the emergency department, in the trauma room. A family member is at the bedside. He gives most of the history. The patient is placed on BiPAP, with settings at 10/5 and 50%. The patient did receive a liter of saline, and was on a Cardizem drip at 5 mg an hour, but that was discontinued. The patient is a DO NOT RESUSCITATE patient. The patient has a history of atrial fibrillation, COPD, diabetes, hyperlipidemia, hypertension, dementia, and osteoarthritis. The patient has had a previous transcatheter aortic valve replacement as well. Recently, the patient has been following at the wound clinic for nonhealing leg ulcerations and wounds. Current laboratory data includes a white count of 17.8, hemoglobin 10.3, hematocrit 32.8, and a platelet count of 145,000. Sodium 139, potassium 4.3, chlorides 106, CO2 20, anion gap 13, BUN 56, and creatinine 1.31. Lactic acid initially was 4.2. Repeat was 1.8. Glucose was 171. Troponin was 0.155 and 1.430. N-terminal proBNP is 2020. The patient tested negative for influenza, AMB, RSV, coronavirus. Urine had trace protein, trace ketones, trace leukocyte esterase, but no bacteria. EKG shows atrial fibrillation with a rapid ventricular response, 155 bpm. Chest x-ray shows diffuse haziness, likely consistent with fluid overload/CHF. Progress note dated September 23, 2023. 88-year-old female well-known to me. The patient was seen in the emergency department yesterday, with respiratory failure. She was brought in because of low saturations, fever, and, had a chest x-ray that was consistent with fluid overload/CHF. The patient was also having episodes of atrial fibrillation with RVR. She is seen today in the ICU, room 267. She had arterial blood gases which show pO2 of 200, pCO2 of 45, pH is 7.32. The patient was on BiPAP, with settings of 10/5 and 35%. Currently she is on 3 L of oxygen. The patient continues on heparin via weight-based protocol, norepinephrine at 2.5 mcg/min, and saline at 75 cc an hour, which will be converted to keep vein open IV. She also continues on Zosyn and vancomycin. She will get 1 dose of Lasix today, 40 mg IV push. Current labs include a white count 19.6, hemoglobin 9.8, hematocrit 32.2, and a platelet count of 113,000. PTT is 38.5. Sodium 142, potassium 4.1, chlorides 109, CO2 22, anion gap 11, BUN 65, and creatinine 1.98. Glucose is 257. AST is 108. ALT is 72. Procalcitonin level is elevated at 0.54. Troponin was 2.910. N-terminal proBNP was 2020. Progress note dated September 24, 2023. 88-year-old female, seen in room 267. She is laying in bed, on room air. She is getting saline at 10 cc an hour, and norepinephrine at 1 mcg/min. She continues on IV heparin. She did not use the BiPAP device last night, and I have asked the nurses to discontinue the BiPAP from her room. Current laboratory data includes a white count 18.4, hemoglobin 9.1, hematocrit 29.3, platelet count 128,000. PTT is 61.2. Sodium 136, potassium 3.6, chlorides 108, CO2 17, anion gap 11, BUN 75, and creatinine 2.01. Glucose is 299. Procalcitonin level is 50.6. Thus far cultures are negative. No chest x-ray today. The patient continues on Ancef. Progress note dated September 25, 2023. 88-year-old female seen in room 267. The patient is currently on room air. Norepinephrine has been weaned off. She continues on amiodarone at 0.5 mg/min. Blood cultures were positive for micrococcus. Laboratory data includes a white count of 17.7, hemoglobin 9, hematocrit 28.3, and platelet count of 127,000. Sodium 134, potassium 3.7, chlorides 106, CO2 20, BUN 72, creatinine 2.05. Glucose is 210. Calcium is 8.4. Chest x-ray shows cardiomegaly, with pulmonary venous congestion. Clinically, the patient is doing much better. She had an uneventful night according to the nurses. Objective - Vital Signs Vital signs: Vital Signs Temp 98.3 F 09/25/23 08:00 Pulse 129 H 09/25/23 11:28 Resp 16 09/25/23 10:15 BP 118/66 09/25/23 11:00 Pulse Ox 97 09/25/23 11:00 FiO2 35 09/23/23 04:41 Intake & Output 09/24/23 09/25/23 09/25/23 18:59 06:59 18:59 Intake Total 923.572 902.215 396.737 Output Total 675 605 190 Balance 248.572 297.215 206.737 Weight 94.4 kg Intake: IV 260 210 60 Invasive Line 3 30 30 10 Invasive Line 4 30 30 10 Invasive Line 5 30 30 10 Sodium Chloride 0.9% 1, 120 120 30 000 ml @ 10 mls/hr IV . Q24H ERIK Rx#:[id number] ceFAZolin 1,000 mg In 50 Sodium Chloride 0.9% 50 ml @ 100 mls/hr IVPB Q8HR ERIK Rx#:[id number] Intake, IV Titration 163.572 192.215 336.737 Amount Heparin Sod,Pork in 0.45% 101.787 250 NaCl 25,000 unit In 0.45 % NaCl 1 250ml.bag @ 12 UNITS/KG/HR 9.253 mls/hr IV .Q24H ERIK Rx#: [id number] Norepinephrine 4 mg In 61.785 192.215 86.737 Sodium Chloride 0.9% 250 ml @ 0.11 MCG/KG/MIN 35. 959 mls/hr IV .Q7H4M ERIK Rx#:[id number] Oral 500 500 Output: Urine 675 605 190 Other: Voiding Method Indwelling Catheter Indwelling Catheter Indwelling Catheter - Exam Patient much more awake and responsive today. Currently just on room air. HEENT examination is grossly unremarkable. Neck supple. Full range of motion. No adenopathy thyromegaly or neck vein distention. Cardiovascular examination reveals an irregular rhythm and rate. S1-S2 normal. No S3 or S4. No discernible murmur noted. Sounds distant. Heart rate is 101 bpm. Lungs reveal scattered rhonchi. No wheezes. Breath sounds equal. Saturations are 97 % on room air. Abdomen soft without bowel sounds. No masses. Extremities are intact. Chronic venous stasis changes noted. No cyanosis. No clubbing. Skin reveals chronic changes. Neurologic examination reveals the patient to be much more awake and alert today. - Labs CBC & Chem 7: 09/25/23 05:32 09/25/23 05:32 Labs: Abnormal Lab Results - Last 24 Hours (Table) 09/24/23 09/24/23 09/25/23 Range/Units 16:05 20:59 05:32 WBC 17.7 H (3.8-10.6) k/uL RBC 3.10 L (3.80-5.40) m/uL Hgb 9.0 L (11.4-16.0) gm/dL Hct 28.3 L (34.0-46.0) % RDW 16.6 H (11.5-15.5) % Plt Count 127 L (150-450) k/uL Sodium (137-145) mmol/L Carbon Dioxide (22-30) mmol/L BUN (7-17) mg/dL Creatinine (0.52-1.04) mg/dL Glucose (74-99) mg/dL POC Glucose (mg/dL) 278 H 213 H (70-110) mg/dL 09/25/23 09/25/23 Range/Units 05:32 11:35 WBC (3.8-10.6) k/uL RBC (3.80-5.40) m/uL Hgb (11.4-16.0) gm/dL Hct (34.0-46.0) % RDW (11.5-15.5) % Plt Count (150-450) k/uL Sodium 134 L (137-145) mmol/L Carbon Dioxide 20 L (22-30) mmol/L BUN 72 H (7-17) mg/dL Creatinine 2.05 H (0.52-1.04) mg/dL Glucose 194 H (74-99) mg/dL POC Glucose (mg/dL) 210 H (70-110) mg/dL Microbiology - Last 24 Hours (Table) 09/22/23 12:31 Blood Culture Gram Stain - Final Blood Blood Culture - Final Micrococcus species 09/22/23 12:47 Blood Culture Gram Stain - Final Blood Blood Culture - Preliminary 09/24/23 04:47 Gram Stain - Final Sputum Sputum Culture - Final Assessment and Plan Assessment: Acute hypoxemic respiratory failure, possibly multifactorial, likely related to atrial fibrillation, fluid overload, and or pneumonia. Rule out non-ST segment elevation myocardial infarction. Atrial fibrillation with RVR. Cough and fever, rule out pneumonia. Mild nonanion gap metabolic acidosis. Mild lactic acidosis. History of hyperlipidemia. Diabetes mellitus. Prior history of transcatheter aortic valve replacement. History of dementia. History of COPD. History of hyperlipidemia. History of hypertension. Chronic lower extremity wounds. Plan: Plan dated September 22, 2023. The patient is seen in the emergency department. Family members at bedside. The patient is currently on BiPAP. The patient did receive a liter of saline. The patient was on a Cardizem drip, but that has been turned off. The patient may have sustained a non-ST segment elevation myocardial infarction. She came in with atrial fibrillation with rapid ventricular response, and a chest x-ray which suggest fluid overload. BNP was somewhat elevated. The patient was placed on antibiotics in the form of vancomycin and Zosyn. A procalcitonin level was ordered. Labs, x-rays, medications are reviewed. Prognosis is poor. The patient is a DO NOT RESUSCITATE patient. That order was placed down. Plan dated September 23, 2023. Surprisingly, the patient is much more awake and alert today. She is just on 3 L. Yesterday when we saw her in the emergency department, she was poorly responsive at best. The patient continues on antibiotics. The procalcitonin level was a bit elevated. The patient also continues on a small amount of norepinephrine at 2.5 mcg/min. The patient continues on Zosyn and vancomycin. Will give her a dose of Lasix 40 mg IV push today. Her BiPAP settings are 10/5 and 35%. We will continue to follow make recommendations along the way. The patient does continue on IV heparin as well. She may have sustained a non-ST segment elevation myocardial infarction. Plan dated September 24, 2023. The patient is seen in room 267, intensive care unit. The patient has been weaned to room air. She is getting saline at 10 cc an hour. She continues on IV heparin, for possible non-ST segment elevation myocardial infarction. The patient also continues on norepinephrine at 1 mcg/min. Labs, x-rays, m edications are reviewed. She is currently on Ancef. We will continue to follow the patient, make recommendations along the way. She did not use the BiPAP device last night it can be discontinued from the room. We will continue to follow. Patient is not yet stable enough to leave the intensive care unit. Plan dated September 25, 2023. The patient is seen today in room 267. She is on room air. Norepinephrine has been weaned off. She continues on amiodarone at 0.5 mg/min. Blood cultures were positive for micrococcus. The patient continues on Unasyn. We will continue to follow and make recommendations along the way. Overall prognosis remains guarded, given her age. She is a DNR. She has improved over the last 24 to 48 hours. We will continue to follow. Time with Patient: Less than 30
--- NOTE | 2023-09-25 12:44 | P.PN ---
Subjective Progress Note Date: 09/25/23 88 year old F with PMH diabetes mellitus type 2 with peripheral neuropathy, chronic A-fib on Eliquis, COPD, hypertension, dyslipidemia, and chronic right lower extremity nonhealing ulcer who presented to the emergency department due to confusion, fever and hypoxia. Patient is currently on BiPAP and majority of history is obtained from the Son. Patient was at her usual state of health yesterday besides a dry cough she has been experiencing over the past week. This morning she was found incoherent, cyanotic at the lips and clammy. She was recently hospitalized for similar symptoms from 07/12-07/23 found of have septic shock from group B strep bacteremia thought to be from an infected RLE ulcer requiring pressors. Her PCP is Dr. Quesada and her Curriculum And Instruction Specialist is Dr. Crouch. In the ED, she underwent extensive evaluation. BP 115/66, HR 163, T 100.3F, RR 26, 93% on 6L NC. CBC, Coag panel, CMP was done which showed WBC 17.8, Hg 10.3, Hct 32.8, Plt 145, bicarb 20, BUN 56, Cr 1.31, glu 171, T. bili 1.7, AST 71, ALT 38, alk phos 186. Lactic acid 4.2. Troponin 0.155, 1.43. EKG showed atrial fibrillation with RVR LBBB ventricular rate of 155. BNP 2020. COVID, RSV, Flu negative. UA trace ketones, trace LE, < 1 WBC. CXR showed signs of pulmonary venous congestion. She was given 2L NS bolus and given a dose of Cardizem IV. Her BP dropped as low as 66/33, she was given a dose of Hydrocortisone 100 mg IV. She was also started on BiPAP. Patient is admitted for atrial fibrillation, acute hypoxic respiratory failure and septic shock. Patient was started on Levophed, Vancomycin and Zosyn. Blood and urine culture was collected. 09/22 Patient was seen and examined. Much more awake and alert. BP 110/59, HR 98, RR 19, 96% on 3L. Currently on Leveophed at 0.1 mcg/kg/min. Maintained on heparin drip at 12 units/kg/hr. Antibiotics include Vancomycin and Zosyn. CBC WBC 19.6, Hg 9.8, Hct 32.2, Plt 113. ABG pH 7.32, pCO2 45. CMP Cl 109, BUN 56, Cr 1.98, glu 220, AST 108, ALT 72, alk phos 154. Troponin 2.91. CT brain negative for acute pathology. GB and Liver US shows hepatomegaly. Repeat EKG shows A-Fib with intraventricular conduction delay. CXR done this morning shows consistent pulmonary vascular congestion. Lasix 40 mg IV x 1 is ordered today. 09/23 Patient was seen and examined. Mentation improved, no complaints. Currently on Leveophed at 0.04 mcg/kg/min. Maintained on heparin drip at 18 units/kg/hr. ID consulted, Vancomycin discontinued yesterday and continued on Zosyn. Blood culture + gram positive cocci in clusters. Patient is started on Cefzolin 1g IV TID. Cardiology consulted, likely type II FL, continue heparin drip for 24H and transition to Eliquis. POC glucose ranging from 179-334 over the past 24H. 24 units of Novolog over the sliding scale during this time. We will start Novolog 8 units TID. Echocardiogram shows EF 45-50% with septum dyskinesis, mild MS, normally functioning bioprosthetic AV, severe TR, trace IL. CBC WBC 18.4, Hg 9.1, Hct 29.3. APTT 61.2. BMP Na 136, Cl 108, bicarb 17, BUN 75, Cr 2.01, glu 265, Ca 8.1. Procal 50.6. CRP 5.7. 09/24 Patient was seen and examined. Levophed weaned off this morning. Started on Amiodarone drip currently running at 0.5mg/min for A-Fib RVR. BCx growing micrococcus. ID switched Cefzolin to Unasyn 3g IV TID yesterday. UCx and Sputum Cx negative. CBC shows WBC 17.7, Hg 9, Hct 28.3, Plt 127. BMP Na 134, bicarb 20, BUN 72, Cr 2.05, glu 194. POC glucose 179-334 over the past 24H. Levemir 25 units QHS added. Renal US no hydronephrosis, non obstructing right nephrolithiasis. CXR done today appears to show pulmonary vascular congestion but may be chronic changes seen on previous CXRs. General: non toxic, no distress, appears at stated age Derm: warm, dry Head: atraumatic, normocephalic, symmetric Eyes: EOMI, no lid lag, pale sclera Mouth: no lip lesion, mucus membranes moist Cardiovascular: S1S2 irreg, no murmur Lungs: Decreased BS bilateral, no rhonchi, + rales , no accessory muscle use Ext: no gross muscle atrophy, no edema, no contractures, RLE ulcer without erythema or drainage Neuro: moving all 4 extremities Psych: Alert, oriented, appropriate affect Based on my assessment of this patient, this patient meets a high complexity level of care. Patient has an acute diagnosis of acute hypoxic respiratory failure, AFib RVR meeting criteria for septic shock that poses a threat to life or bodily function. Acute metabolic encephalopathy due to below Septic shock with gram positive bacteremia: Blood culture + gram positive cocci in clusters x 2. Zosyn and Vancomycin discontinued. Cefzolin discontinued. Start ed on Unasyn 3g IV TID on 09/23. Repeat blood culture ordered. Gallbladder US shows hepatomegaly. Telemetry monitoring. Judicious use of fluid given pulmonary vascular congestion and need for BiPAP since patient is DNR/DNI. NS at 10 cc/hr. ID on board. Diabetes mellitus with hyperglycemia: Novolog 7 units TID. Add Levemir 25 units QHS. ISS. Accuchecks ACHS. Hypoglycemic precautions. Atrial fibrillation with RVR: Cardizem drip discontinued due to hypotension. Amiodarone drip running at 0.5 mg/min. Restarted on Eliquis 2.5 mg PO BID. Cardiology consulted. Acute hypoxic respiratory failure due to HFrEF exacerbation: Status post Lasix 40 mg IV 09/22. Improving. Echocardiogram as above. Cardiology on board. NSTEMI: Likely Type II FL. Low dose heparin drip x 48 H completed. Echocardiogram as above. Cardiology on board. MAE on CKD: Likely prerenal. Patient is on Levophed. Vancomycin is toxic. IV hydration as above. Renal US as above. Transaminitis: GB and liver US as above. COPD not in acute exacerbation: SoluMedrol 60 mg IV Q6H. DuoNeb Q4H scheduled. Pulmicort 1 mg INH BID. Pulmonary on board. Hypertension: Hold Metoprolol and Lasix due to septic shock. Dyslipidemia: Lipitor 40 mg PO Q2D when able to PO. RLE nonhealing ulcer: Wound care consult. CODE STATUS: NO CODE. DVT Prophylaxis: Eliquis. GI Prophylaxis: Protonix IV. Designated medical POA if patient is not able to make medical decisions for themselves: Son I have reviewed the following public relations consultant notes: Pulmonary, Cardiology, ID note. I have reviewed the results of the following tests: CBC, BMP, Renal US. I have ordered the following tests: I have discussed the care of this patient with the following independent histor christa: I have independently interpreted the following test below: CXR I have discussed the management of this patient with the following physician: Objective - Vital Signs Vital signs: Vital Signs Temp 98.3 F 09/25/23 08:00 Pulse 101 H 09/25/23 08:26 Resp 16 09/25/23 08:15 BP 116/66 09/25/23 08:15 Pulse Ox 99 09/25/23 08:15 FiO2 35 09/23/23 04:41 Intake & Output 09/24/23 09/25/23 09/25/23 18:59 06:59 18:59 Intake Total 923.572 902.215 386.737 Output Total 675 605 150 Balance 248.572 297.215 236.737 Weight 94.4 kg Intake: IV 260 210 50 Invasive Line 3 30 30 10 Invasive Line 4 30 30 10 Invasive Line 5 30 30 10 Sodium Chloride 0.9% 1, 120 120 20 000 ml @ 10 mls/hr IV . Q24H [facility] Rx#:[id number] ceFAZolin 1,000 mg In 50 Sodium Chloride 0.9% 50 ml @ 100 mls/hr IVPB Q8HR [facility] Rx#:[id number] Intake, IV Titration 163.572 192.215 336.737 Amount Heparin Sod,Pork in 0.45% 101.787 250 NaCl 25,000 unit In 0.45 % NaCl 1 250ml.bag @ 12 UNITS/KG/HR 9.253 mls/hr IV .Q24H [facility] Rx#: [id number] Norepinephrine 4 mg In 61.785 192.215 86.737 Sodium Chloride 0.9% 250 ml @ 0.11 MCG/KG/MIN 35. 959 mls/hr IV .Q7H4M [facility] Rx#:[id number] Oral 500 500 Output: Urine 675 605 150 Other: Voiding Method Indwelling Catheter Indwelling Catheter - Labs CBC & Chem 7: 09/25/23 05:32 09/25/23 05:32 Labs: Abnormal Lab Results - Last 24 Hours (Table) 09/24/23 09/24/23 09/24/23 Range/Units 07:48 07:48 11:17 WBC (3.8-10.6) k/uL RBC (3.80-5.40) m/uL Hgb (11.4-16.0) gm/dL Hct (34.0-46.0) % RDW (11.5-15.5) % Plt Count (150-450) k/uL Sodium 136 L (137-145) mmol/L Chloride 108 H (98-107) mmol/L Carbon Dioxide 17 L (22-30) mmol/L BUN 75 H (7-17) mg/dL Creatinine 2.01 H (0.52-1.04) mg/dL Glucose 265 H (74-99) mg/dL POC Glucose (mg/dL) 299 H (70-110) mg/dL Calcium 8.1 L (8.4-10.2) mg/dL C-Reactive Protein 5.7 H (<1.0) mg/dL Procalcitonin 50.60 H (0.02-0.09) ng/mL 09/24/23 09/24/23 09/25/23 Range/Units 16:05 20:59 05:32 WBC 17.7 H (3.8-10.6) k/uL RBC 3.10 L (3.80-5.40) m/uL Hgb 9.0 L (11.4-16.0) gm/dL Hct 28.3 L (34.0-46.0) % RDW 16.6 H (11.5-15.5) % Plt Count 127 L (150-450) k/uL Sodium (137-145) mmol/L Chloride (98-107) mmol/L Carbon Dioxide (22-30) mmol/L BUN (7-17) mg/dL Creatinine (0.52-1.04) mg/dL Glucose (74-99) mg/dL POC Glucose (mg/dL) 278 H 213 H (70-110) mg/dL Calcium (8.4-10.2) mg/dL C-Reactive Protein (<1.0) mg/dL Procalcitonin (0.02-0.09) ng/mL 09/25/23 Range/Units 05:32 WBC (3.8-10.6) k/uL RBC (3.80-5.40) m/uL Hgb (11.4-16.0) gm/dL Hct (34.0-46.0) % RDW (11.5-15.5) % Plt Count (150-450) k/uL Sodium 134 L (137-145) mmol/L Chloride (98-107) mmol/L Carbon Dioxide 20 L (22-30) mmol/L BUN 72 H (7-17) mg/dL Creatinine 2.05 H (0.52-1.04) mg/dL Glucose 194 H (74-99) mg/dL POC Glucose (mg/dL) (70-110) mg/dL Calcium (8.4-10.2) mg/dL C-Reactive Protein (<1.0) mg/dL Procalcitonin (0.02-0.09) ng/mL Microbiology - Last 24 Hours (Table) 09/22/23 12:31 Blood Culture Gram Stain - Final Blood Blood Culture - Final Micrococcus species 09/22/23 12:47 Blood Culture Gram Stain - Final Blood Blood Culture - Preliminary 09/24/23 04:47 Gram Stain - Final Sputum Sputum Culture - Final
[2023-09-25] MEDS: METOPROLOL TARTRATE 25 MG TAB PO SCH (13:03)
[2023-09-25] MEDS: AMIODARONE 200 MG TAB PO SCH (13:04)
[2023-09-25 17:31] LABS: Glucose,Whole Blood 290 mg/dL (70-110)
[2023-09-25] MEDS: IPRATROPIUM-ALBUTEROL 3 ML NEB INHALATION SCH (18:45)
[2023-09-25 20:08] LABS: Glucose,Whole Blood 256 mg/dL (70-110)
[2023-09-25] MEDS: INSULIN DETEMIR (LEVEMIR) 100 UNIT/ML SYR SQ SCH (21:02)
--- NOTE | 2023-09-25 21:14 | P.PN ---
Subjective Progress Note Date: 09/25/23 Principal diagnosis: Reason for follow-up is sepsis and bacteremia Patient is a 88-year-old female with a past medical history being for diabetes mellitus hypertension hyperlipidemia COPD atrial fibrillation patient did have a chronic nonhealing wound to the right lower extremity, presented to the hospital for evaluation of difficulty breathing patient did have a fever with concern for possible pneumonia versus abdominal source. On today's evaluation that is 09/25/2023, the patient continues to be afebrile, the patient is on room air and breathing comfortably, the Pt denies having any chest pain patient did have a cough but not able to bring up any sputum, the patient denies having any abdominal pain no vomiting or any diarrhea has been reported by the nursing staff denies pain to the right lower extremity wound Has decreased in intensity Patient white count is down to 17.7 creatinine is 2.05 blood culture with micrococcus Objective - Vital Signs Vital signs: Vital Signs Temp 98.3 F 09/25/23 08:00 Pulse 129 H 09/25/23 11:28 Resp 16 09/25/23 10:15 BP 118/66 09/25/23 11:00 Pulse Ox 97 09/25/23 11:00 FiO2 35 09/23/23 04:41 Intake & Output 09/24/23 09/25/23 09/25/23 18:59 06:59 18:59 Intake Total 923.572 902.215 396.737 Output Total 675 605 190 Balance 248.572 297.215 206.737 Weight 94.4 kg Intake: IV 260 210 60 Invasive Line 3 30 30 10 Invasive Line 4 30 30 10 Invasive Line 5 30 30 10 Sodium Chloride 0.9% 1, 120 120 30 000 ml @ 10 mls/hr IV . Q24H [facility] Rx#:[id number] ceFAZolin 1,000 mg In 50 Sodium Chloride 0.9% 50 ml @ 100 mls/hr IVPB Q8HR [facility] Rx#:[id number] Intake, IV Titration 163.572 192.215 336.737 Amount Heparin Sod,Pork in 0.45% 101.787 250 NaCl 25,000 unit In 0.45 % NaCl 1 250ml.bag @ 12 UNITS/KG/HR 9.253 mls/hr IV .Q24H [facility] Rx#: [id number] Norepinephrine 4 mg In 61.785 192.215 86.737 Sodium Chloride 0.9% 250 ml @ 0.11 MCG/KG/MIN 35. 959 mls/hr IV .Q7H4M [facility] Rx#:[id number] Oral 500 500 Output: Urine 675 605 190 Other: Voiding Method Indwelling Catheter Indwelling Catheter Indwelling Catheter - Exam GENERAL DESCRIPTION: An elderly female lying in bed in no distress RESPIRATORY SYSTEM: Unlabored breathing , decreased breath sounds at bases HEART: S1 S2 regular rate and rhythm , ABDOMEN: Soft , no tenderness EXTREMITIES: Right leg wound base looks clean with no slough tissue surrounding redness - Labs CBC & Chem 7: 09/25/23 05:32 09/25/23 12:20 Labs: Abnormal Lab Results - Last 24 Hours (Table) 09/24/23 09/24/23 09/25/23 Range/Units 16:05 20:59 05:32 WBC 17.7 H (3.8-10.6) k/uL RBC 3.10 L (3.80-5.40) m/uL Hgb 9.0 L (11.4-16.0) gm/dL Hct 28.3 L (34.0-46.0) % RDW 16.6 H (11.5-15.5) % Plt Count 127 L (150-450) k/uL Sodium (137-145) mmol/L Carbon Dioxide (22-30) mmol/L BUN (7-17) mg/dL Creatinine (0.52-1.04) mg/dL Glucose (74-99) mg/dL POC Glucose (mg/dL) 278 H 213 H (70-110) mg/dL 09/25/23 09/25/23 Range/Units 05:32 11:35 WBC (3.8-10.6) k/uL RBC (3.80-5.40) m/uL Hgb (11.4-16.0) gm/dL Hct (34.0-46.0) % RDW (11.5-15.5) % Plt Count (150-450) k/uL Sodium 134 L (137-145) mmol/L Carbon Dioxide 20 L (22-30) mmol/L BUN 72 H (7-17) mg/dL Creatinine 2.05 H (0.52-1.04) mg/dL Glucose 194 H (74-99) mg/dL POC Glucose (mg/dL) 210 H (70-110) mg/dL Microbiology - Last 24 Hours (Table) 09/22/23 12:31 Blood Culture Gram Stain - Final Blood Blood Culture - Final Micrococcus species 09/22/23 12:47 Blood Culture Gram Stain - Final Blood Blood Culture - Preliminary 09/24/23 04:47 Gram Stain - Final Sputum Sputum Culture - Final Assessment and Plan (1) Leg wound, right Current Visit: Yes Status: Acute Code(s): S81.801A - UNSPECIFIED OPEN WOUND, RIGHT LOWER LEG, INITIAL ENCOUNTER SNOMED Code(s): 68110827026893783 (2) Bacteremia Current Visit: No Status: Acute Code(s): R78.81 - BACTEREMIA SNOMED Code(s): 8441163 Plan: 1patient presented to hospital with sepsis in this patient who did have a fever tachycardia elevated white count source likely pneumonia and the patient did have some respiratory symptoms congested cough infiltrate seen on the chest x- ray patient did have a nonhealing wound to the right lower extremity however overall wound base looks clean with no slough tissue no surrounding redness or foul-smelling drainage urine was negative patient did have elevated liver enzymes possible related to hepatic congestion from CHF but other etiologies not excluded, ultrasound of the gallbladder was negative 2-patient did have a positive blood culture finalized as micrococcus patient is more likely contamination than true pathogen,blood cultures has been repeated to document clearance 3-patient to continue with Unasyn while waiting for the workup to be completed Dictation was produced using [employer] dictation software. please excuse any grammatical, word or spelling errors. Time with Patient: Less than 30
--- NOTE | 2023-09-25 23:04 | CONS ---
CONSULTATION HISTORY OF PRESENT ILLNESS: An 88-year-old lady, who is in the intensive care unit because of hypotension; has history of aortic stenosis, status post TAVR; permanent atrial fibrillation and mild nonobstructive CAD. She has had episodes of hypotension and atrial fibrillation. Last night, she was started on IV amiodarone. Remains in atrial fibrillation with elevated heart rate. She is no longer on the pressors. Blood pressure had improved. I will stop the IV amiodarone. Start her on oral amiodarone. Continue the Eliquis and add Lopressor 25 t.i.d. PHYSICAL EXAMINATION: VITAL SIGNS: Heart rate is 120 beats per minute, blood pressure is 118/66, respiratory rate is 18. CHEST: Reveals diminished air entry bilaterally. HEART: Reveals first and second heart sounds. No gallop. EXTREMITIES: Reveals mild edema. Peripheral pulses are felt. ASSESSMENT: Persistent atrial fibrillation with poorly controlled ventricular rate. PLAN: I will start the patient on oral amiodarone and metoprolol for rate control. MMODL / IJN: [id number] /
[2023-09-26 06:19] LABS: Anisocytosis Slight; HCT 27.5 % (34.0-46.0); MCH 29.5 pg (25.0-35.0); MCHC 32.6 g/dL (31.0-37.0); MCV 90.5 fL (80.0-100.0); Platelet Count 100 k/uL (150-450); RBC 3.04 m/uL (3.80-5.40); RDW 16.6 % (11.5-15.5); WBC 10.2 k/uL (3.8-10.6)
[2023-09-26 06:30] LABS: African American GFR (CKD) 29 (>60 ml/min/1.73 sqM); Anion Gap 6 mmol/L; Blood Urea Nitrogen 72 mg/dL (7-17); Calcium 8.7 mg/dL (8.4-10.2); Carbon Dioxide 23 mmol/L (22-30); Chloride 105 mmol/L (98-107); Glucose 103 mg/dL (74-99); Non-African American GFR(CKD) 25 (>60 ml/min/1.73 sqM); Potassium 4.6 mmol/L (3.5-5.1); Sodium 134 mmol/L (137-145)
[2023-09-26 06:45] LABS: Glucose,Whole Blood 121 mg/dL (70-110)
[2023-09-26] MEDS: ATORVASTATIN 40 MG TAB PO SCH (09:28)
[2023-09-26] MEDS: FUROSEMIDE 20 MG TAB PO SCH (09:29)
[2023-09-26] MEDS: DONEPEZIL 10 MG TAB PO SCH (09:52)
[2023-09-26 11:24] LABS: Glucose,Whole Blood 173 mg/dL (70-110)
--- NOTE | 2023-09-26 12:52 | P.PN ---
Subjective Progress Note Date: 09/26/23 88 year old F with PMH diabetes mellitus type 2 with peripheral neuropathy, chronic A-fib on Eliquis, COPD, hypertension, dyslipidemia, and chronic right lower extremity nonhealing ulcer who presented to the emergency department due to confusion, fever and hypoxia. Patient is currently on BiPAP and majority of history is obtained from the Son. Patient was at her usual state of health yesterday besides a dry cough she has been experiencing over the past week. This morning she was found incoherent, cyanotic at the lips and clammy. She was recently hospitalized for similar symptoms from 07/12-07/23 found of have septic shock from group B strep bacteremia thought to be from an infected RLE ulcer requiring pressors. Her PCP is Dr. Quesada and her Weighter is Dr. Crouch. In the ED, she underwent extensive evaluation. BP 115/66, HR 163, T 100.3F, RR 26, 93% on 6L NC. CBC, Coag panel, CMP was done which showed WBC 17.8, Hg 10.3, Hct 32.8, Plt 145, bicarb 20, BUN 56, Cr 1.31, glu 171, T. bili 1.7, AST 71, ALT 38, alk phos 186. Lactic acid 4.2. Troponin 0.155, 1.43. EKG showed atrial fibrillation with RVR LBBB ventricular rate of 155. BNP 2020. COVID, RSV, Flu negative. UA trace ketones, trace LE, < 1 WBC. CXR showed signs of pulmonary venous congestion. She was given 2L NS bolus and given a dose of Cardizem IV. Her BP dropped as low as 66/33, she was given a dose of Hydrocortisone 100 mg IV. She was also started on BiPAP. Patient is admitted for atrial fibrillation with RVR, acute hypoxic respiratory failure and septic shock. Patient was started on Levophed, Vancomycin and Zosyn. Blood and urine culture was collected. Admitted to ICU. Cardiology consulted. Echocardiogram shows EF 45-50% with septum dyskinesis, mild MS, normally functioning bioprosthetic AV, severe TR, trace ME. Troponin elevated likely Type II [place], poor candidate for cardiac cath. Heparin drip continued for 48H and patient was placed back on Eliquis. She did go into A-Fib with RVR on 09/24 requiring initiation of Amiodarone drip which was transitioned to PO and titrated up. Blood culture came back + for micrococcus. Vancomycin and Zosyn was switched to Cefzolin and then to Unasyn 3g IV TID (D2). ID consulted, possibly a contaminant. Levophed was weaned off on 09/24. Repeat blood cultures are negative so far. Sputum culture unsatisfactory collection. Urine culture negative. Procal went from 0.54 on 09/21 to 50.6 on 09/23, repeat has been ordered for 09/26. She was given a dose of Lasix 40 mg IV on 09/22. She was weaned off BiPAP and is currently not on any supplemental oxygen. 09/25 Patient was seen and examined. Mentation is back to baseline. Heart rate in the low 100s. Amiodarone increased to 400 mg PO BID by Cardiology and continued on home medication of Metoprolol 25 mg PO QD. Antibiotics include Unasyn 3g IV BID (D2). Repeat BCx is negative so far. POC glucose 121-334 over the past 24H, likely steroid induced, currently on Levemir 25 units QHS and Novolog 7 units TID with ISS. CBC shows Hg 9, Hct 27.5, Plt 100. BMP Na 134, BUN 72, Cr 1.80, glu 103. Repeat blood culture negative so far. General: non toxic, no distress, appears at stated age Derm: warm, dry Head: atraumatic, normocephalic, symmetric Eyes: EOMI, no lid lag, pale sclera Mouth: no lip lesion, mucus membranes moist Cardiovascular: S1S2 irreg, no murmur Lungs: Decreased BS bilateral, no rhonchi, + rales , no accessory muscle use Ext: no gross muscle atrophy, no edema, no contractures, RLE ulcer without erythema or drainage Neuro: moving all 4 extremities Psych: Alert, oriented, appropriate affect Based on my assessment of this patient, this patient meets a high complexity level of care. Patient has an acute diagnosis of acute hypoxic respiratory failure, AFib RVR meeting criteria for septic shock that poses a threat to life or bodily function. Acute metabolic encephalopathy due to below Septic shock with gram positive bacteremia: Blood culture + gram positive cocci in clusters x 2 micrococcus species. Zosyn and Vancomycin discontinued. Cefzolin discontinued. Started on Unasyn 3g IV TID on 09/23. Repeat blood culture negative so far. Gallbladder US shows hepatomegaly. Telemetry monitoring. Judicious use of fluid given pulmonary vascular congestion and need for BiPAP since patient is DNR/DNI. NS at 10 cc/hr. ID on board. Diabetes mellitus with hyperglycemia: Steroid induced. Novolog 7 units TID. L evemir 25 units QHS. ISS. Accuchecks ACHS. Hypoglycemic precautions. Atrial fibrillation with RVR: Cardizem drip discontinued due to hypotension. Amiodarone drip discontinued 09/24. Amiodarone 400 mg PO BID and Metoprolol 25 mg PO QD. Restarted on Eliquis 2.5 mg PO BID. Cardiology on board. Acute hypoxic respiratory failure due to HFrEF exacerbation: Status post Lasix 40 mg IV 09/22. Improving. Echocardiogram as above. Cardiology on board. NSTEMI: Likely Type II [place]. Low dose heparin drip x 48 H completed. Echocardiogram as above. Cardiology on board. MAE on CKD: Likely prerenal. Patient is on Levophed. Vancomycin is toxic. IV hydration as above. Renal US as above. Transaminitis: GB and liver US as above. COPD not in acute exacerbation: SoluMedrol 60 mg IV Q6H. DuoNeb Q4H scheduled. Pulmicort 1 mg INH BID. Pulmonary on board. Hypertension: Metoprolol 25 mg PO QD. Lasix 20 mg PO QD restarted. Dyslipidemia: Lipitor 40 mg PO Q2D. RLE nonhealing ulcer: Wound care on board. CODE STATUS: NO CODE. DVT Prophylaxis: Eliquis. GI Prophylaxis: Protonix IV. Designated medical POA if patient is not able to make medical decisions for themselves: Son I have reviewed the following technical consultant notes: Pulmonary, Cardiology, ID note. I have reviewed the results of the following tests: CBC, BMP, repeat BCx. I have ordered the following tests: Procal. CBC and BMP ordered for tomorrow morning. Repeat BCx pending. I have discussed the care of this patient with the following independent historian: I have independently interpreted the following test below: I have discussed the management of this patient with the following physician: Objective - Vital Signs Vital signs: Vital Signs Temp 98.5 F 09/26/23 08:00 Pulse 100 09/26/23 08:09 Resp 16 09/26/23 08:00 BP 118/72 09/26/23 08:00 Pulse Ox 96 09/26/23 08:00 FiO2 35 09/23/23 04:41 Intake & Output 09/25/23 09/26/23 09/26/23 18:59 06:59 18:59 Intake Total 846.737 210 140 Output Total 1020 565 180 Balance -173.263 -355 -40 Weight 94.1 kg Intake: IV 210 210 20 Invasive Line 3 30 30 Invasive Line 4 30 30 Invasive Line 5 30 30 Sodium Chloride 0.9% 1, 120 120 20 000 ml @ 10 mls/hr IV . Q24H [facility] Rx#:[id number] Intake, IV Titration 636.737 Amount Amiodarone 360 mg In 200 Dextrose 5% in Water 200 ml @ 1 MG/MIN 33.333 mls/ hr IV .Q6H [facility] Rx#: [id number] Ampicillin-Sulbactam 3 gm 100 In Sodium Chloride 0.9% 100 ml @ 200 mls/hr IVPB Q12H [facility] Rx#:[id number] Heparin Sod,Pork in 0.45% 250 NaCl 25,000 unit In 0.45 % NaCl 1 250ml.bag @ 12 UNITS/KG/HR 9.253 mls/hr IV .Q24H [facility] Rx#: [id number] Norepinephrine 4 mg In 86.737 Sodium Chloride 0.9% 250 ml @ 0.11 MCG/KG/MIN 35. 959 mls/hr IV .Q7H4M [facility] Rx#:[id number] Oral 120 Output: Urine 1020 565 180 Other: Voiding Method Indwelling Catheter Indwelling Catheter - Labs CBC & Chem 7: 09/26/23 05:12 09/26/23 05:12 Labs: Abnormal Lab Results - Last 24 Hours (Table) 09/25/23 09/25/23 09/25/23 Range/Units 11:35 17:29 20:06 RBC (3.80-5.40) m/uL Hgb (11.4-16.0) gm/dL Hct (34.0-46.0) % RDW (11.5-15.5) % Plt Count (150-450) k/uL Sodium (137-145) mmol/L BUN (7-17) mg/dL Creatinine (0.52-1.04) mg/dL Glucose (74-99) mg/dL POC Glucose (mg/dL) 210 H 290 H 256 H (70-110) mg/dL 09/26/23 09/26/23 09/26/23 Range/Units 05:12 05:12 06:43 RBC 3.04 L (3.80-5.40) m/uL Hgb 9.0 L (11.4-16.0) gm/dL Hct 27.5 L (34.0-46.0) % RDW 16.6 H (11.5-15.5) % Plt Count 100 L (150-450) k/uL Sodium 134 L (137-145) mmol/L BUN 72 H (7-17) mg/dL Creatinine 1.80 H (0.52-1.04) mg/dL Glucose 103 H (74-99) mg/dL POC Glucose (mg/dL) 121 H (70-110) mg/dL Microbiology - Last 24 Hours (Table) 09/24/23 10:18 Blood Culture - Preliminary Blood 09/24/23 08:32 Blood Culture - Preliminary Blood
--- NOTE | 2023-09-26 14:00 | P.PN ---
Subjective Progress Note Date: 09/26/23 Principal diagnosis: Respiratory failure. Pulmonary consult dated September 22, 2023. 88-year-old female who was seen by Dr. Terrazas in the emergency department, for difficulty breathing, and elevated temperature. According to the family, the patient was fine yesterday, but today, was noted to have a hard time breathing, had some confusion and mental status changes, had very low saturations, blue lips, and generally would just not well. Also, apparently, she has been coughing quite a bit for the last few days. The patient is seen in the emergency department, in the trauma room. A family member is at the bedside. He gives most of the history. The patient is placed on BiPAP, with settings at 10/5 and 50%. The patient did receive a liter of saline, and was on a Cardizem drip at 5 mg an hour, but that was discontinued. The patient is a DO NOT RESUSCITATE patient. The patient has a history of atrial fibrillation, COPD, diabetes, hyperlipidemia, hypertension, dementia, and osteoarthritis. The patient has had a previous transcatheter aortic valve replacement as well. Recently, the patient has been following at the wound clinic for nonhealing leg ulcerations and wounds. Current laboratory data includes a white count of 17.8, hemoglobin 10.3, hematocrit 32.8, and a platelet count of 145,000. Sodium 139, potassium 4.3, chlorides 106, CO2 20, anion gap 13, BUN 56, and creatinine 1.31. Lactic acid initially was 4.2. Repeat was 1.8. Glucose was 171. Troponin was 0.155 and 1.430. N-terminal proBNP is 2020. The patient tested negative for influenza, AMB, RSV, coronavirus. Urine had trace protein, trace ketones, trace leukocyte esterase, but no bacteria. EKG shows atrial fibrillation with a rapid ventricular response, 155 bpm. Chest x-ray shows diffuse haziness, likely consistent with fluid overload/CHF. Progress note dated September 23, 2023. 88-year-old female well-known to me. The patient was seen in the emergency department yesterday, with respiratory failure. She was brought in because of low saturations, fever, and, had a chest x-ray that was consistent with fluid overload/CHF. The patient was also having episodes of atrial fibrillation with RVR. She is seen today in the ICU, room 267. She had arterial blood gases which show pO2 of 200, pCO2 of 45, pH is 7.32. The patient was on BiPAP, with settings of 10/5 and 35%. Currently she is on 3 L of oxygen. The patient continues on heparin via weight-based protocol, norepinephrine at 2.5 mcg/min, and saline at 75 cc an hour, which will be converted to keep vein open IV. She also continues on Zosyn and vancomycin. She will get 1 dose of Lasix today, 40 mg IV push. Current labs include a white count 19.6, hemoglobin 9.8, hematocrit 32.2, and a platelet count of 113,000. PTT is 38.5. Sodium 142, potassium 4.1, chlorides 109, CO2 22, anion gap 11, BUN 65, and creatinine 1.98. Glucose is 257. AST is 108. ALT is 72. Procalcitonin level is elevated at 0.54. Troponin was 2.910. N-terminal proBNP was 2020. Progress note dated September 24, 2023. 88-year-old female, seen in room 267. She is laying in bed, on room air. She is getting saline at 10 cc an hour, and norepinephrine at 1 mcg/min. She continues on IV heparin. She did not use the BiPAP device last night, and I have asked the nurses to discontinue the BiPAP from her room. Current laboratory data includes a white count 18.4, hemoglobin 9.1, hematocrit 29.3, platelet count 128,000. PTT is 61.2. Sodium 136, potassium 3.6, chlorides 108, CO2 17, anion gap 11, BUN 75, and creatinine 2.01. Glucose is 299. Procalcitonin level is 50.6. Thus far cultures are negative. No chest x-ray today. The patient continues on Ancef. Progress note dated September 25, 2023. 88-year-old female seen in room 267. The patient is currently on room air. Norepinephrine has been weaned off. She continues on amiodarone at 0.5 mg/min. Blood cultures were positive for micrococcus. Laboratory data includes a white count of 17.7, hemoglobin 9, hematocrit 28.3, and platelet count of 127,000. Sodium 134, potassium 3.7, chlorides 106, CO2 20, BUN 72, creatinine 2.05. Glucose is 210. Calcium is 8.4. Chest x-ray shows cardiomegaly, with pulmonary venous congestion. Clinically, the patient is doing much better. She had an uneventful night according to the nurses. Carcinoma dated September 26, 2023. 88-year-old female seen today in room 267. Currently, the patient is doing much better. She is currently on room air. She is getting saline at 10 cc an hour. She was stable overnight, and likely can be transferred out to the cardiac floor. Today's labs include a white count 10.2, hemoglobin 9, hematocrit 27.5, and a platelet count of 100,000. Sodium 134, potassium 4.6, chlorides 105, CO2 23, BUN 72, creatinine 1.80. Glucose 103. Calcium 8.7. Blood cultures were positive for micrococcus species. No chest x-ray today. The patient continues on Unasyn. Objective - Vital Signs Vital signs: Vital Signs Temp 98.9 F 09/26/23 12:00 Pulse 90 09/26/23 12:30 Resp 21 09/26/23 12:30 BP 110/67 09/26/23 12:15 Pulse Ox 95 09/26/23 10:45 FiO2 35 09/23/23 04:41 Intake & Output 09/25/23 09/26/23 09/26/23 18:59 06:59 18:59 Intake Total 846.737 210 200 Output Total 1020 565 665 Balance -173.263 -355 -465 Weight 94.1 kg Intake: IV 210 210 80 Invasive Line 3 30 30 20 Invasive Line 4 30 30 20 Invasive Line 5 30 30 Sodium Chloride 0.9% 1, 120 120 40 000 ml @ 10 mls/hr IV . Q24H [facility] Rx#:[id number] Intake, IV Titration 636.737 Amount Amiodarone 360 mg In 200 Dextrose 5% in Water 200 ml @ 1 MG/MIN 33.333 mls/ hr IV .Q6H [facility] Rx#: [id number] Ampicillin-Sulbactam 3 gm 100 In Sodium Chloride 0.9% 100 ml @ 200 mls/hr IVPB Q12H [facility] Rx#:[id number] Heparin Sod,Pork in 0.45% 250 NaCl 25,000 unit In 0.45 % NaCl 1 250ml.bag @ 12 UNITS/KG/HR 9.253 mls/hr IV .Q24H [facility] Rx#: [id number] Norepinephrine 4 mg In 86.737 Sodium Chloride 0.9% 250 ml @ 0.11 MCG/KG/MIN 35. 959 mls/hr IV .Q7H4M [facility] Rx#:[id number] Oral 120 Output: Urine 1020 565 665 Other: Voiding Method Indwelling Catheter Indwelling Catheter Indwelling Catheter # Bowel Movements 1 - Exam Patient much more awake and responsive today. Currently just on room air. HEENT examination is grossly unremarkable. Neck supple. Full range of motion. No adenopathy thyromegaly or neck vein distention. Cardiovascular examination reveals an irregular rhythm and rate. S1-S2 normal. No S3 or S4. No discernible murmur noted. Sounds distant. Heart rate is 101 bpm. Lungs reveal scattered rhonchi. No wheezes. Breath sounds equal. Saturations are 97 % on room air. Abdomen soft without bowel sounds. No masses. Extremities are intact. Chronic venous stasis changes noted. No cyanosis. No clubbing. Skin reveals chronic changes. Neurologic examination reveals the patient to be much more awake and alert today. - Labs CBC & Chem 7: 09/26/23 05:12 09/26/23 05:12 Labs: Abnormal Lab Results - Last 24 Hours (Table) 09/25/23 09/25/23 09/26/23 Range/Units 17:29 20:06 05:12 RBC 3.04 L (3.80-5.40) m/uL Hgb 9.0 L (11.4-16.0) gm/dL Hct 27.5 L (34.0-46.0) % RDW 16.6 H (11.5-15.5) % Plt Count 100 L (150-450) k/uL Sodium (137-145) mmol/L BUN (7-17) mg/dL Creatinine (0.52-1.04) mg/dL Glucose (74-99) mg/dL POC Glucose (mg/dL) 290 H 256 H (70-110) mg/dL 09/26/23 09/26/23 09/26/23 Range/Units 05:12 06:43 11:22 RBC (3.80-5.40) m/uL Hgb (11.4-16.0) gm/dL Hct (34.0-46.0) % RDW (11.5-15.5) % Plt Count (150-450) k/uL Sodium 134 L (137-145) mmol/L BUN 72 H (7-17) mg/dL Creatinine 1.80 H (0.52-1.04) mg/dL Glucose 103 H (74-99) mg/dL POC Glucose (mg/dL) 121 H 173 H (70-110) mg/dL Microbiology - Last 24 Hours (Table) 09/24/23 10:18 Blood Culture - Preliminary Blood 09/24/23 08:32 Blood Culture - Preliminary Blood Assessment and Plan Assessment: Acute hypoxemic respiratory failure, possibly multifactorial, likely related to atrial fibrillation, fluid overload, and or pneumonia. Rule out non-ST segment elevation myocardial infarction. Bacteremia, secondary to micrococcus species. Atrial fibrillation with RVR. Cough and fever, rule out pneumonia. Mild nonanion gap metabolic acidosis. Mild lactic acidosis. History of hyperlipidemia. Diabetes mellitus. Prior history of transcatheter aortic valve replacement. History of dementia. History of COPD. History of hyperlipidemia. History of hypertension. Chronic lower extremity wounds. Plan: Plan dated September 22, 2023. The patient is seen in the emergency department. Family members at bedside. The patient is currently on BiPAP. The patient did receive a liter of saline. The patient was on a Cardizem drip, but that has been turned off. The patient may have sustained a non-ST segment elevation myocardial infarction. She came in with atrial fibrillation with rapid ventricular response, and a chest x-ray which suggest fluid overload. BNP was somewhat elevated. The patient was placed on antibiotics in the form of vancomycin and Zosyn. A procalcitonin level was ordered. Labs, x-rays, medications are reviewed. Prognosis is poor. The patient is a DO NOT RESUSCITATE patient. That order was placed down. Plan dated September 23, 2023. Surprisingly, the patient is much more awake and alert today. She is just on 3 L. Yesterday when we saw her in the emergency department, she was poorly responsive at best. The patient continues on antibiotics. The procalcitonin level was a bit elevated. The patient also continues on a small amount of norepinephrine at 2.5 mcg/min. The patient continues on Zosyn and vancomycin. Will give her a dose of Lasix 40 mg IV push today. Her BiPAP settings are 10/5 and 35%. We will continue to follow make recommendations along the way. The patient does continue on IV heparin as well. She may have sustained a non-ST segment elevation myocardial infarction. Plan dated September 24, 2023. The patient is seen in room 267, intensive care unit. The patient has been weaned to room air. She is getting saline at 10 cc an hour. She continues on IV heparin, for possible non-ST segment elevation myocardial infarction. The patient also continues on norepinephrine at 1 mcg/min. Labs, x-rays, medications are reviewed. She is currently on Ancef. We will continue to follow the patient, make recommendations along the way. She did not use the BiPAP device last night it can be discontinued from the room. We will continue to follow. Patient is not yet stable enough to leave the intensive care unit. Plan dated September 25, 2023. The patient is seen today in room 267. She is on room air. Norepinephrine has been weaned off. She continues on amiodarone at 0.5 mg/min. Blood cultures were positive for micrococcus. The patient continues on Unasyn. We will continue to follow and make recommendations along the way. Overall prognosis remains guarded, given her age. She is a DNR. She has improved over the last 24 to 48 hours. We will continue to follow. Plan dated September 26, 2023. The patient appears to be doing relatively well. The patient is only on a couple liters of oxygen. The patient continues on Unasyn. Labs, x-rays, and medications are reviewed. The patient can likely be transferred out to the cardiology floor. We will continue to follow the patient, make recommendations along the way. Prognosis is certainly guarded. The patient is a DO NOT RESUSCITATE patient. Labs, x-rays, and all medications are reviewed. Time with Patient: Less than 30
[2023-09-26 18:11] LABS: Glucose,Whole Blood 325 mg/dL (70-110)
[2023-09-26 20:20] LABS: Glucose,Whole Blood 230 mg/dL (70-110)
[2023-09-26] MEDS: FERROUS SULFATE 325 MG TAB PO SCH (20:54)
--- NOTE | 2023-09-26 21:51 | P.PN ---
Subjective Progress Note Date: 09/26/23 Principal diagnosis: Reason for follow-up is sepsis and bacteremia Patient is a 88-year-old female with a past medical history being for diabetes mellitus hypertension hyperlipidemia COPD atrial fibrillation patient did have a chronic nonhealing wound to the right lower extremity, presented to the hospital for evaluation of difficulty breathing patient did have a fever with concern for possible pneumonia versus abdominal source. On today's evaluation that is 09/26/2023, Patient is afebrile patient is currently on room air and denies having any shortness of breath, the patient denies any chest pain patient did have a cough but not bring up any sputum, the patient denies any nausea vomiting did not have any abdominal pain and no diarrhea, denies pain to the right lower extremity wound. The patient white count normalized to 10.2, creatinine is 1.80 blood culture repeat has been negative so far Objective - Vital Signs Vital signs: Vital Signs Temp 98.9 F 09/26/23 12:00 Pulse 88 09/26/23 15:55 Resp 19 09/26/23 13:15 BP 108/68 09/26/23 13:15 Pulse Ox 95 09/26/23 10:45 FiO2 35 09/23/23 04:41 Intake & Output 09/25/23 09/26/23 09/26/23 18:59 06:59 18:59 Intake Total 846.737 210 200 Output Total 1020 565 665 Balance -173.263 -355 -465 Weight 94.1 kg Intake: IV 210 210 80 Invasive Line 3 30 30 20 Invasive Line 4 30 30 20 Invasive Line 5 30 30 Sodium Chloride 0.9% 1, 120 120 40 000 ml @ 10 mls/hr IV . Q24H [facility] Rx#:[id number] Intake, IV Titration 636.737 Amount Amiodarone 360 mg In 200 Dextrose 5% in Water 200 ml @ 1 MG/MIN 33.333 mls/ hr IV .Q6H [facility] Rx#: [id number] Ampicillin-Sulbactam 3 gm 100 In Sodium Chloride 0.9% 100 ml @ 200 mls/hr IVPB Q12H [facility] Rx#:[id number] Heparin Sod,Pork in 0.45% 250 NaCl 25,000 unit In 0.45 % NaCl 1 250ml.bag @ 12 UNITS/KG/HR 9.253 mls/hr IV .Q24H [facility] Rx#: [id number] Norepinephrine 4 mg In 86.737 Sodium Chloride 0.9% 250 ml @ 0.11 MCG/KG/MIN 35. 959 mls/hr IV .Q7H4M [facility] Rx#:[id number] Oral 120 Output: Urine 1020 565 665 Other: Voiding Method Indwelling Catheter Indwelling Catheter Indwelling Catheter # Bowel Movements 1 - Exam GENERAL DESCRIPTION: An elderly female lying in bed in no distress RESPIRATORY SYSTEM: Unlabored breathing , decreased breath sounds at bases HEART: S1 S2 regular rate and rhythm , ABDOMEN: Soft , no tenderness EXTREMITIES: Right leg wound base looks clean with no slough tissue surrounding redness - Labs CBC & Chem 7: 09/26/23 05:12 09/26/23 05:12 Labs: Abnormal Lab Results - Last 24 Hours (Table) 09/25/23 09/25/23 09/26/23 Range/Units 17:29 20:06 05:12 RBC 3.04 L (3.80-5.40) m/uL Hgb 9.0 L (11.4-16.0) gm/dL Hct 27.5 L (34.0-46.0) % RDW 16.6 H (11.5-15.5) % Plt Count 100 L (150-450) k/uL Sodium (137-145) mmol/L BUN (7-17) mg/dL Creatinine (0.52-1.04) mg/dL Glucose (74-99) mg/dL POC Glucose (mg/dL) 290 H 256 H (70-110) mg/dL 09/26/23 09/26/23 09/26/23 Range/Units 05:12 06:43 11:22 RBC (3.80-5.40) m/uL Hgb (11.4-16.0) gm/dL Hct (34.0-46.0) % RDW (11.5-15.5) % Plt Count (150-450) k/uL Sodium 134 L (137-145) mmol/L BUN 72 H (7-17) mg/dL Creatinine 1.80 H (0.52-1.04) mg/dL Glucose 103 H (74-99) mg/dL POC Glucose (mg/dL) 121 H 173 H (70-110) mg/dL Microbiology - Last 24 Hours (Table) 09/22/23 12:47 Blood Culture Gram Stain - Final Blood Blood Culture - Preliminary 09/24/23 10:18 Blood Culture - Preliminary Blood 09/24/23 08:32 Blood Culture - Preliminary Blood Assessment and Plan (1) Leg wound, right Current Visit: Yes Status: Acute Code(s): S81.801A - UNSPECIFIED OPEN WOUND, RIGHT LOWER LEG, INITIAL ENCOUNTER SNOMED Code(s): 68508508335466205 (2) Bacteremia Current Visit: No Status: Acute Code(s): R78.81 - BACTEREMIA SNOMED Code(s): 1290244 Plan: 1patient presented to hospital with sepsis in this patient who did have a fever tachycardia elevated white count source likely pneumonia and the patient did have some respiratory symptoms congested cough infiltrate seen on the chest x- ray patient did have a nonhealing wound to the right lower extremity however overall wound base looks clean with no slough tissue no surrounding redness or foul-smelling drainage urine was negative patient did have elevated liver enzymes possible related to hepatic congestion from CHF but other etiologies not excluded, ultrasound of the gallbladder was negative 2-patient did have a positive blood culture finalized as micrococcus patient is more likely contamination than true pathogen,blood cultures has been repeated to document clearance 3-patient is afebrile and the patient white count has normalized, patient to continue with Unasyn while inpatient and finishing therapy with oral antibiotics Dictation was produced using [employer] dictation software. please excuse any grammatical, word or spelling errors. Time with Patient: Less than 30
--- NOTE | 2023-09-26 22:13 | PN ---
PROGRESS NOTE SUBJECTIVE: This is an 88-year-old lady, whom we were asked to see in consultation yesterday because of atrial fibrillation. She has history of aortic stenosis, for which she underwent TAVR and recent permanent atrial fibrillation with mild nonobstructive CAD. At the time of my evaluation this morning, she remains in atrial fibrillation with fairly controlled ventricular rate. She is on Lopressor 25 three times a day along with amiodarone that I started yesterday. She denies chest pain or difficulty in breathing. OBJECTIVE: VITAL SIGNS: Heart rate is around 90 beats per minute, blood pressure is 100/60, respiratory rate 18. CHEST: Reveals diminished air entry with occasional rhonchi bilaterally. HEART: Reveals first and second heart sounds. Irregular rhythm. Systolic murmur at the left lower sternal border. EXTREMITIES: Did not reveal any edema. ASSESSMENT: 1. Permanent atrial fibrillation. 2. Pneumonia. 3. Pulmonary embolism. PLAN: I will continue her on her current medications. MMODL / IJN: [id number] /
[2023-09-27 06:19] LABS: Glucose,Whole Blood 163 mg/dL (70-110)
[2023-09-27] MEDS: AMIODARONE 200 MG TAB PO SCH (08:44)
[2023-09-27 10:01] LABS: Anisocytosis Slight; HCT 30.2 % (34.0-46.0); HGB 9.7 gm/dL (11.4-16.0); MCH 28.8 pg (25.0-35.0); MCHC 32.1 g/dL (31.0-37.0); Mean Platelet Volume 8.9; Platelet Count 115 k/uL (150-450); RBC 3.35 m/uL (3.80-5.40); RDW 16.4 % (11.5-15.5); WBC 7.3 k/uL (3.8-10.6)
[2023-09-27 10:22] LABS: African American GFR (CKD) 28 (>60 ml/min/1.73 sqM); Anion Gap 9 mmol/L; Blood Urea Nitrogen 76 mg/dL (7-17); Carbon Dioxide 23 mmol/L (22-30); Chloride 105 mmol/L (98-107); Glucose 108 mg/dL (74-99); Non-African American GFR(CKD) 24 (>60 ml/min/1.73 sqM); Potassium 4.4 mmol/L (3.5-5.1); Sodium 137 mmol/L (137-145)
--- NOTE | 2023-09-27 10:38 | P.PN ---
Subjective Progress Note Date: 09/27/23 HISTORY OF PRESENTING ILLNESS This is an 88-year-old with past medical history significant for aortic stenosis status post TAVR, chronic atrial fibrillation, mild nonobstructive coronary artery disease. She follows in the office with Dr. Cruoch. patient is poor historian and history is obtained by chart. She apparently has been having some SOB and fever as well as worsened confusion. Per history she had a cough the last few days as well. Patient had been found by son with cyanotic lips confused and clammy. She was found to be in Afib with RVR on arrival and given Cardizem with BP dropping significantly to 66/33 and was given stress dose steroids as well as IVF bolus with improvement in BP's. EKG shows Afib with RVR with LBBB. CXray with pulmonary vascular congestion. Initially she was req uiring BIPAP however this has been weaned. Echo was performed which showed EF 35-40% with normally functioning TAVR valve, severe RV dilation, severe tricuspid regurgitation. WBC 17.8, HGB 10.3, Cr 1.31, Lactic acid 4.2, Troponin 0.15, 1.4, 2.9, proBNP 2019, procalcitonin 0.54, viral panel negative, Cr increased to 1.98 today. Her pulse ox was in the 50's per EMS on presentation. PRIOR CARDIAC TESTING Cardiac cath from 2019 shows minimal nonobstructive coronary artery disease with severe aortic stenosis. Patient had a TAVR procedure done thereafter. 09/23 Patient seen and examined. Patient denies any chest pain or pressure. Does have occasional cough. No fevers. White blood cell count 10.4, creatinine 2.0 and pro-calcitonin significantly elevated. Blood cultures with gram-positive cocci. patient remains in A. fib with heart rates elevated in the 110 to 1:30 range. 09/26 Patient has been in the intensive care unit with hypotension and atrial fibrillation. Patient required vasopressors which have been discontinued and also has been on amiodarone drip which has been discontinued and transition to oral. Patient has been transferred to the cardiac stepdown unit. She remains in atrial fibrillation heart rate running in the 80s and 90s, blood pressure 126/64, pulse ox 97% on room air. PHYSICAL EXAMINATION Vital signs reviewed. Head: Normocephalic. Eyes: Sclerae nonicteric. Neck: Brisk carotid upstroke, no jugular venous distention. Lungs: Clear to auscultation. Heart: Irregular rate and rhythm, S1-S2, no S3, systolic ejection murmur audible in the aortic area. Brisk carotid upstrokes. Abdomen: Soft nontender, positive bowel sounds no organomegaly. Extremities: Chronic stasis changes to the right lower extremity with ulcer ASSESSMENT NSTEMI likely type 2 mechanism from hypoxia pulse ox in the 50's by EMS and hypotension with BP's into the 60's Chronic atrial fibrillation initially RVR, now rate controlled Aortic Stenosis status post TAVR Mild coronary artery disease by cath 2020 Cardiomyopathy EF 35-40%, may be stress induced cardiomyopathy, sepsis or other Polyvalvular disease Severe RV enlargement Chronic systolic heart failure Septic shock and possible pneumonia COPD Hypertension Chronic right lower extremity nonhealing wound Positive blood culture most likely contamination PLAN Continue patient on Eliquis 2.5 mg twice daily, atorvastatin, Lasix 20 mg daily oral, Lopressor 25 mg 3 times daily Decrease amiodarone to 200 mg twice daily Continue treatment for other conditions No plan for ischemic cardiac workup at this time due to multiple comorbidities. Nurse practitioner note has been reviewed, I agree with documented findings and plan of care. Patient was seen and examined. Objective - Vital Signs Vital signs: Vital Signs Temp 97.8 F 09/27/23 08:11 Pulse 93 09/27/23 08:11 Resp 18 09/27/23 08:11 BP 126/64 09/27/23 08:11 Pulse Ox 97 09/27/23 08:11 FiO2 35 09/23/23 04:41 Intake & Output 09/26/23 09/27/23 09/27/23 18:59 06:59 18:59 Intake Total 220 50 10 Output Total 665 Balance -445 50 10 Weight 96.5 kg Intake: IV 100 50 10 Invasive Line 3 30 30 Invasive Line 4 30 Invasive Line 5 20 10 Sodium Chloride 0.9% 1, 40 000 ml @ 10 mls/hr IV . Q24H [facility] Rx#:[id number] Oral 120 Output: Urine 665 Other: Voiding Method Indwelling Catheter Bedside Commode # Voids 1 # Bowel Movements 1 1 - Labs CBC & Chem 7: 09/27/23 09:05 09/27/23 09:05 Labs: Abnormal Lab Results - Last 24 Hours (Table) 09/26/23 09/26/23 09/26/23 Range/Units 11:22 18:08 20:18 POC Glucose (mg/dL) 173 H 325 H 230 H (70-110) mg/dL 09/27/23 Range/Units 06:17 POC Glucose (mg/dL) 163 H (70-110) mg/dL Microbiology - Last 24 Hours (Table) 09/24/23 10:18 Blood Culture - Preliminary Blood 09/24/23 08:32 Blood Culture - Preliminary Blood 09/22/23 12:47 Blood Culture Gram Stain - Final Blood Blood Culture - Preliminary
[2023-09-27 11:27] LABS: Glucose,Whole Blood 159 mg/dL (70-110)
--- NOTE | 2023-09-27 12:51 | P.PN ---
Subjective Progress Note Date: 09/27/23 Principal diagnosis: Respiratory failure. Pulmonary consult dated September 22, 2023. 88-year-old female who was seen by Dr. Terrazas in the emergency department, for difficulty breathing, and elevated temperature. According to the family, the patient was fine yesterday, but today, was noted to have a hard time breathing, had some confusion and mental status changes, had very low saturations, blue lips, and generally would just not well. Also, apparently, she has been coughing quite a bit for the last few days. The patient is seen in the emergency department, in the trauma room. A family member is at the bedside. He gives most of the history. The patient is placed on BiPAP, with settings at 10/5 and 50%. The patient did receive a liter of saline, and was on a Cardizem drip at 5 mg an hour, but that was discontinued. The patient is a DO NOT RESUSCITATE patient. The patient has a history of atrial fibrillation, COPD, diabetes, hyperlipidemia, hypertension, dementia, and osteoarthritis. The patient has had a previous transcatheter aortic valve replacement as well. Recently, the patient has been following at the wound clinic for nonhealing leg ulcerations and wounds. Current laboratory data includes a white count of 17.8, hemoglobin 10.3, hematocrit 32.8, and a platelet count of 145,000. Sodium 139, potassium 4.3, chlorides 106, CO2 20, anion gap 13, BUN 56, and creatinine 1.31. Lactic acid initially was 4.2. Repeat was 1.8. Glucose was 171. Troponin was 0.155 and 1.430. N-terminal proBNP is 2020. The patient tested negative for influenza, AMB, RSV, coronavirus. Urine had trace protein, trace ketones, trace leukocyte esterase, but no bacteria. EKG shows atrial fibrillation with a rapid ventricular response, 155 bpm. Chest x-ray shows diffuse haziness, likely consistent with fluid overload/CHF. Progress note dated September 23, 2023. 88-year-old female well-known to me. The patient was seen in the emergency department yesterday, with respiratory failure. She was brought in because of low saturations, fever, and, had a chest x-ray that was consistent with fluid overload/CHF. The patient was also having episodes of atrial fibrillation with RVR. She is seen today in the ICU, room 267. She had arterial blood gases which show pO2 of 200, pCO2 of 45, pH is 7.32. The patient was on BiPAP, with settings of 10/5 and 35%. Currently she is on 3 L of oxygen. The patient continues on heparin via weight-based protocol, norepinephrine at 2.5 mcg/min, and saline at 75 cc an hour, which will be converted to keep vein open IV. She also continues on Zosyn and vancomycin. She will get 1 dose of Lasix today, 40 mg IV push. Current labs include a white count 19.6, hemoglobin 9.8, hematocrit 32.2, and a platelet count of 113,000. PTT is 38.5. Sodium 142, potassium 4.1, chlorides 109, CO2 22, anion gap 11, BUN 65, and creatinine 1.98. Glucose is 257. AST is 108. ALT is 72. Procalcitonin level is elevated at 0.54. Troponin was 2.910. N-terminal proBNP was 2020. Progress note dated September 24, 2023. 88-year-old female, seen in room 267. She is laying in bed, on room air. She is getting saline at 10 cc an hour, and norepinephrine at 1 mcg/min. She continues on IV heparin. She did not use the BiPAP device last night, and I have asked the nurses to discontinue the BiPAP from her room. Current laboratory data includes a white count 18.4, hemoglobin 9.1, hematocrit 29.3, platelet count 128,000. PTT is 61.2. Sodium 136, potassium 3.6, chlorides 108, CO2 17, anion gap 11, BUN 75, and creatinine 2.01. Glucose is 299. Procalcitonin level is 50.6. Thus far cultures are negative. No chest x-ray today. The patient continues on Ancef. Progress note dated September 25, 2023. 88-year-old female seen in room 267. The patient is currently on room air. Norepinephrine has been weaned off. She continues on amiodarone at 0.5 mg/min. Blood cultures were positive for micrococcus. Laboratory data includes a white count of 17.7, hemoglobin 9, hematocrit 28.3, and platelet count of 127,000. Sodium 134, potassium 3.7, chlorides 106, CO2 20, BUN 72, creatinine 2.05. Glucose is 210. Calcium is 8.4. Chest x-ray shows cardiomegaly, with pulmonary venous congestion. Clinically, the patient is doing much better. She had an uneventful night according to the nurses. Progress note dated September 26, 2023. 88-year-old female seen today in room 267. Currently, the patient is doing much better. She is currently on room air. She is getting saline at 10 cc an hour. She was stable overnight, and likely can be transferred out to the cardiac floor. Today's labs include a white count 10.2, hemoglobin 9, hematocrit 27.5, and a platelet count of 100,000. Sodium 134, potassium 4.6, chlorides 105, CO2 23, BUN 72, creatinine 1.80. Glucose 103. Calcium 8.7. Blood cultures were positive for micrococcus species. No chest x-ray today. The patient continues on Unasyn. Progress note dated September 27, 2023. 88-year-old female seen today in room 360. The patient is currently on room air. She is receiving Unasyn. She is getting saline at 10 cc an hour. Family members are at the bedside. Current laboratory data includes a white count 7.3, hemoglobin 9.7, hematocrit 30.2, and a platelet count of 115,000. Sodium 137, potassium 4.4, chlorides 105, CO2 23, BUN 76, and creatinine 1.88. Glucose is 159. Calcium is 9.0. Blood cultures from September 21 were positive for micrococcus species. Objective - Vital Signs Vital signs: Vital Signs Temp 97.8 F 09/27/23 08:11 Pulse 92 09/27/23 12:03 Resp 18 09/27/23 08:11 BP 126/64 09/27/23 08:11 Pulse Ox 97 09/27/23 08:11 FiO2 35 09/23/23 04:41 Intake & Output 09/26/23 09/27/23 09/27/23 18:59 06:59 18:59 Intake Total 220 50 10 Output Total 665 Balance -445 50 10 Weight 96.5 kg Intake: IV 100 50 10 Invasive Line 3 30 30 Invasive Line 4 30 Invasive Line 5 20 10 Sodium Chloride 0.9% 1, 40 000 ml @ 10 mls/hr IV . Q24H [facility], [facility]–1983 Rx#:[id number] Oral 120 Output: Urine 665 Other: Voiding Method Indwelling Catheter Bedside Commode Bedside Commode # Voids 1 # Bowel Movements 1 1 - Exam Patient much more awake and responsive today. Currently just on room air. HEENT examination is grossly unremarkable. Neck supple. Full range of motion. No adenopathy thyromegaly or neck vein distention. Cardiovascular examination reveals an irregular rhythm and rate. S1-S2 normal. No S3 or S4. No discernible murmur noted. Sounds distant. Heart rate is 89 bpm. Lungs reveal scattered rhonchi. No wheezes. Breath sounds equal. Saturations are 96 % on room air. Abdomen soft without bowel sounds. No masses. Extremities are intact. Chronic venous stasis changes noted. No cyanosis. No clubbing. Skin reveals chronic changes. Neurologic examination is brief but nonfocal. The patient appears to be back to baseline. - Labs CBC & Chem 7: 09/27/23 09:05 09/27/23 09:05 Labs: Abnormal Lab Results - Last 24 Hours (Table) 09/26/23 09/26/23 09/27/23 Range/Units 18:08 20:18 06:17 RBC (3.80-5.40) m/uL Hgb (11.4-16.0) gm/dL Hct (34.0-46.0) % RDW (11.5-15.5) % Plt Count (150-450) k/uL BUN (7-17) mg/dL Creatinine (0.52-1.04) mg/dL Glucose (74-99) mg/dL POC Glucose (mg/dL) 325 H 230 H 163 H (70-110) mg/dL 09/27/23 09/27/23 09/27/23 Range/Units 09:05 09:05 11:24 RBC 3.35 L (3.80-5.40) m/uL Hgb 9.7 L (11.4-16.0) gm/dL Hct 30.2 L (34.0-46.0) % RDW 16.4 H (11.5-15.5) % Plt Count 115 L (150-450) k/uL BUN 76 H (7-17) mg/dL Creatinine 1.88 H (0.52-1.04) mg/dL Glucose 108 H (74-99) mg/dL POC Glucose (mg/dL) 159 H (70-110) mg/dL Microbiology - Last 24 Hours (Table) 09/24/23 10:18 Blood Culture - Preliminary Blood 09/24/23 08:32 Blood Culture - Preliminary Blood 09/22/23 12:47 Blood Culture Gram Stain - Final Blood Blood Culture - Preliminary Assessment and Plan Assessment: Acute hypoxemic respiratory failure, possibly multifactorial, likely related to atrial fibrillation, fluid overload, and or pneumonia. Rule out non-ST segment elevation myocardial infarction. Bacteremia, secondary to micrococcus species. Atrial fibrillation with RVR. Cough and fever, rule out pneumonia. Mild nonanion gap metabolic acidosis. Mild lactic acidosis. History of hyperlipidemia. Diabetes mellitus. Prior history of transcatheter aortic valve replacement. History of dementia. History of COPD. History of hyperlipidemia. History of hypertension. Chronic lower extremity wounds. Plan: Plan dated September 22, 2023. The patient is seen in the emergency department. Family members at bedside. The patient is currently on BiPAP. The patient did receive a liter of saline. The patient was on a Cardizem drip, but that has been turned off. The patient may have sustained a non-ST segment elevation myocardial infarction. She came in with atrial fibrillation with rapid ventricular response, and a chest x-ray which suggest fluid overload. BNP was somewhat elevated. The patient was placed on antibiotics in the form of vancomycin and Zosyn. A procalcitonin level was ordered. Labs, x-rays, medications are reviewed. Prognosis is poor. The patient is a DO NOT RESUSCITATE patient. That order was placed down. Plan dated September 23, 2023. Surprisingly, the patient is much more awake and alert today. She is just on 3 L. Yesterday when we saw her in the emergency department, she was poorly responsive at best. The patient continues on antibiotics. The procalcitonin level was a bit elevated. The patient also continues on a small amount of norepinephrine at 2.5 mcg/min. The patient continues on Zosyn and vancomycin. Will give her a dose of Lasix 40 mg IV push today. Her BiPAP settings are 10/5 and 35%. We will continue to follow make recommendations along the way. The patient does continue on IV heparin as well. She may have sustained a non-ST segment elevation myocardial infarction. Plan dated September 24, 2023. The patient is seen in room 267, intensive care unit. The patient has been weaned to room air. She is getting saline at 10 cc an hour. She continues on IV heparin, for possible non-ST segment elevation myocardial infarction. The patient also continues on norepinephrine at 1 mcg/min. Labs, x-rays, medications are reviewed. She is currently on Ancef. We will continue to follow the patient, make recommendations along the way. She did not use the BiPAP device last night it can be discontinued from the room. We will continue to follow. Patient is not yet stable enough to leave the intensive care unit. Plan dated September 25, 2023. The patient is seen today in room 267. She is on room air. Norepinephrine has been weaned off. She continues on amiodarone at 0.5 mg/min. Blood cultures were positive for micrococcus. The patient continues on Unasyn. We will continue to follow and make recommendations along the way. Overall prognosis remains guarded, given her age. She is a DNR. She has improved over the last 24 to 48 hours. We will continue to follow. Plan dated September 26, 2023. The patient appears to be doing relatively well. The patient is only on a couple liters of oxygen. The patient continues on Unasyn. Labs, x-rays, and medications are reviewed. The patient can likely be transferred out to the cardiology floor. We will continue to follow the patient, make recommendations along the way. Prognosis is certainly guarded. The patient is a DO NOT RESUSCITATE patient. Labs, x-rays, and all medications are reviewed. Plan dated September 27, 2023. The patient appears to be doing relatively well. She appears that she is back to baseline. She continues on Unasyn for the positive blood culture. The patient is receiving saline at 10 cc an hour. The patient continues in atrial fibrillation, but the rate is controlled. The patient is not requiring any supplemental oxygen. The patient is a DO NOT RESUSCITATE patient. Labs, x- rays, and medications are reviewed. We will continue to follow the patient, and make recommendations along the way. Time with Patient: Less than 30
[2023-09-27 16:25] LABS: Glucose,Whole Blood 235 mg/dL (70-110)
--- NOTE | 2023-09-27 18:33 | P.PN ---
Subjective Progress Note Date: 09/27/23 (delayed charting seen at approx 1145) Patient is a 88-year-old female diabetes mellitus type 2 with peripheral neuropathy, chronic A-fib on Eliquis, COPD, hypertension, dyslipidemia, and chronic right lower extremity nonhealing ulcer who presented to the emergency department due to confusion, fever and hypoxia. In the emergency department she underwent extensive evaluation. Initial vital signs showed a T temperature of 100.3 and hypoxia with an O2 sat of 93% on 6 L. Initial laboratory analysis was remarkable for WBC 17.8, Hg 10.3, Hct 32.8, Plt 145, bicarb 20, BUN 56, Cr 1.31, glu 171, T. bili 1.7, AST 71, ALT 38, alk phos 186. Lactic acid 4.2. Troponin 0.155, 1.43. EKG done in the emergency department demonstrated atrial fibrillation with rapid ventricular response. Influenza A/B/RSV/COVID 19 testing was negative. Chest x-ray demonstrated pulmonary vascular congestion with trace pleural effusions. She was given 2 L of normal saline was started on IV Cardizem and her blood pressure became labile down to 66/33. She was also started on hydrocortisone 100 mg IV push x 1. She was then started on BiPAP. She was admitted to the ICU due to A-fib with RVR, acute hypoxic respiratory failure, and possible septic shock. She was initiated on Levophed, Vanco, and Zosyn. Blood and urine cultures were collected. Cardiology was consulted and she underwent echocardiogram which showed an ejection fraction of 35 to 40%. Her troponins elevated with a max at 2.91. Cardiology felt that she was a poor candidate for cardiac catheterization and recommended continuing heparin drip for 48 hours. Once this was completed she was transitioned back to Eliquis. She was started on Lasix on 09/22 and was able to be weaned off of BiPAP. She again went into A-fib with RVR on 09/24 requiring initiation of amiodarone drip which was subsequently transition to oral. She did have 2 out of 2 blood cultures come back +1 for micrococcus and 1 where the species would not continue to grow for speciation. Infectious disease was subsequently consulted. Vanco and Zosyn were discontinued and the patient was switched to cefazolin and then ultimately to Unasyn. She was able to come off of Levophed by 09/24. It was felt that her blood cultures were likely due to contamination. Urine culture was negative. Sputum cultures were negative. Procalcitonin initially was 0.54 and maxed at 50 now down to 6.9. She was also followed by pulmonary during her hospital stay. Patient seen and examined at bedside. She denies any chest pain, shortness of breath, nausea, vomiting. She overall feels fatigued. She feels slightly confused. [id number] present at bedside. Sister who the patient lives with contacted over the phone. We discussed her diagnosis of systolic congestive heart f ailure. The importance of daily weights, strict outtake, and monitoring sodium intake. Vital signs reviewed General: Nontoxic, no distress, appears at stated age Cardiovascular: S1S2 reg, no murmur Lungs: CTA bilateral, no rhonchi, no rales, no accessory muscle use Abdominal: Soft, nontender to palpation, no guarding Ext: No gross muscle atrophy, 1+ edema b/l lower extremities, no contractures, dressing over right lower extremity wound Neuro: CN II-XI grossly intact, no focal neuro deficits Psych: Alert, oriented, appropriate affect Assessment/Plan: Newly discovered systolic congestive heart failure with ejection fraction 35 to 40% Non-ST segment elevated myocardial infarction likely multifactorial Atrial fibrillation with rapid ventricular response Acute hypoxic respiratory failure due to above -Cardiology recommendations reviewed: Continue with Eliquis 2.5 mg twice daily, atorvastatin, Lasix, and Lopressor, decrease amiodarone to 200 mg twice daily, no plans for ischemic workup -Lipitor 40 mg daily, Eliquis 2.5 mg daily, Lipitor 40 mg daily, amiodarone 200 mg twice daily, Lasix 20 mg daily, Lopressor 25 mg 3 times daily -Will start Farxiga 10 mg oral daily. Still appears fluid overloaded but adding farxiga so will not increase diuretic at this time. - Ideally should also have ARB and mineralocorticoid ordered ordered however unable to do so secondary to acute kidney injury Acute kidney injury on chronic kidney disease stage IIIa -Improving -Likely component of cardio renal syndrome -No [place] inhibitor due to MAE -Repeat basic metabolic profile in a.m. Diabetes mellitus type 2 with hyperglycemia -Metformin on hold -Continue with NovoLog 7 units 3 times daily, sliding scale insulin, Decrease levemir to 10 untis at night given disconitnue of IV steroids and initiation of farxiga 10 mg daily. -Suspect hyperglycemia is likely secondary to steroid use -A1c 5.5 Chronic right lower extremity wound -Being followed by infectious disease. Case discussed with Dr. Ornelas and feels that micrococcus is likely contaminant. Continue Unasyn for now and then transition to oral antibiotics upon discharge. Anemia and thrombocytopenia -Undetermined etiology -Baseline -Follow-up as outpatient Toxic metabolic encephalopathy, resolved Bacteremia, contaminant Septic shock, resolved Imaging: None new Hospital course imaging: Echocardiogram: Ejection fraction 35 to 40%, septum dyskinesis, severe right ventricular dilatation with globally reduced systolic function, moderate right atrial dilatation, normally functioning bioprosthetic aortic valve Head CT: No acute hemorrhage Gallbladder ultrasound: Hepatomegaly gallbladder surgically absent Renal ultrasound: Nonobstructing calculus lower right pole Data Review: Labs reviewed from today include CBC and basic metabolic profile as well as procalcitonin which are remarkable for hemoglobin 9.7, platelets 115 DVT prophylaxis: Eliquis Anticipated discharge date: In 2 to [address]: Home with home health This dictation was prepared using [employer] voice recognition software. Though every attempt is made to correct errors during dictation some may still exist. Objective - Vital Signs Vital signs: Vital Signs Temp 98 F 09/27/23 12:15 Pulse 88 09/27/23 16:27 Resp 16 09/27/23 16:00 BP 112/65 09/27/23 16:00 Pulse Ox 100 09/27/23 16:00 FiO2 35 09/23/23 04:41 Intake & Output 09/26/23 09/27/23 09/27/23 18:59 06:59 18:59 Intake Total 220 50 368 Output Total 665 Balance -445 50 368 Weight 96.5 kg Intake: IV 100 50 10 Invasive Line 3 30 30 Invasive Line 4 30 Invasive Line 5 20 10 Sodium Chloride 0.9% 1, 40 000 ml @ 10 mls/hr IV . Q24H [facility] Rx#:[id number] Oral 120 358 Output: Urine 665 Other: Voiding Method Indwelling Catheter Bedside Commode Bedside Commode # Voids 1 1 # Bowel Movements 1 1 - Labs CBC & Chem 7: 09/27/23 09:05 09/27/23 09:05 Labs: Abnormal Lab Results - Last 24 Hours (Table) 09/26/23 09/27/23 09/27/23 Range/Units 20:18 06:17 06:34 RBC (3.80-5.40) m/uL Hgb (11.4-16.0) gm/dL Hct (34.0-46.0) % RDW (11.5-15.5) % Plt Count (150-450) k/uL BUN (7-17) mg/dL Creatinine (0.52-1.04) mg/dL Glucose (74-99) mg/dL POC Glucose (mg/dL) 230 H 163 H (70-110) mg/dL Procalcitonin 6.90 H (0.02-0.09) ng/mL 09/27/23 09/27/23 09/27/23 Range/Units 09:05 09:05 11:24 RBC 3.35 L (3.80-5.40) m/uL Hgb 9.7 L (11.4-16.0) gm/dL Hct 30.2 L (34.0-46.0) % RDW 16.4 H (11.5-15.5) % Plt Count 115 L (150-450) k/uL BUN 76 H (7-17) mg/dL Creatinine 1.88 H (0.52-1.04) mg/dL Glucose 108 H (74-99) mg/dL POC Glucose (mg/dL) 159 H (70-110) mg/dL Procalcitonin (0.02-0.09) ng/mL 09/27/23 Range/Units 16:22 RBC (3.80-5.40) m/uL Hgb (11.4-16.0) gm/dL Hct (34.0-46.0) % RDW (11.5-15.5) % Plt Count (150-450) k/uL BUN (7-17) mg/dL Creatinine (0.52-1.04) mg/dL Glucose (74-99) mg/dL POC Glucose (mg/dL) 235 H (70-110) mg/dL Procalcitonin (0.02-0.09) ng/mL Microbiology - Last 24 Hours (Table) 09/24/23 10:18 Blood Culture - Preliminary Blood 09/24/23 08:32 Blood Culture - Preliminary Blood 09/22/23 12:47 Blood Culture Gram Stain - Final Blood Blood Culture - Preliminary
[2023-09-27 20:46] LABS: Glucose,Whole Blood 252 mg/dL (70-110)
[2023-09-27] MEDS: INSULIN DETEMIR (LEVEMIR) 100 UNIT/ML SYR SQ SCH (20:57)
[2023-09-28 06:20] LABS: Glucose,Whole Blood 210 mg/dL (70-110)
--- NOTE | 2023-09-28 08:38 | P.PN ---
Subjective Progress Note Date: 09/27/23 Principal diagnosis: Reason for follow-up is sepsis and bacteremia Patient is a 88-year-old female with a past medical history being for diabetes mellitus hypertension hyperlipidemia COPD atrial fibrillation patient did have a chronic nonhealing wound to the right lower extremity, presented to the hospital for evaluation of difficulty breathing patient did have a fever with concern for possible pneumonia versus abdominal source. On today's evaluation that is 09/27/2023, patient has been afebrile, patient is breathing comfortably and is currently on 2 L nasal cannula oxygen, patient denies having any worsening cough or sputum production, no chest pain shortness of breath, patient denies nausea vomiting or diarrhea and no abdominal pain. Patient white count normal at 7.3, creatinine is 1.88 blood culture repeat has been negative sputum negative Objective - Vital Signs Vital signs: Vital Signs Temp 98 F 09/27/23 12:15 Pulse 97 09/27/23 12:15 Resp 18 09/27/23 12:15 BP 125/71 09/27/23 12:15 Pulse Ox 95 09/27/23 12:15 FiO2 35 09/23/23 04:41 Intake & Output 09/26/23 09/27/23 09/27/23 18:59 06:59 18:59 Intake Total 220 50 250 Output Total 665 Balance -445 50 250 Weight 96.5 kg Intake: IV 100 50 10 Invasive Line 3 30 30 Invasive Line 4 30 Invasive Line 5 20 10 Sodium Chloride 0.9% 1, 40 000 ml @ 10 mls/hr IV . Q24H [facility] Rx#:[id number] Oral 120 240 Output: Urine 665 Other: Voiding Method Indwelling Catheter Bedside Commode Bedside Commode # Voids 1 1 # Bowel Movements 1 1 - Exam GENERAL DESCRIPTION: An elderly female lying in bed in no distress RESPIRATORY SYSTEM: Unlabored breathing , decreased breath sounds at bases HEART: S1 S2 regular rate and rhythm , ABDOMEN: Soft , no tenderness EXTREMITIES: Right leg wound base looks clean with no slough tissue surrounding redness - Labs CBC & Chem 7: 09/27/23 09:05 09/27/23 09:05 Labs: Abnormal Lab Results - Last 24 Hours (Table) 09/26/23 09/26/23 09/27/23 Range/Units 18:08 20:18 06:17 RBC (3.80-5.40) m/uL Hgb (11.4-16.0) gm/dL Hct (34.0-46.0) % RDW (11.5-15.5) % Plt Count (150-450) k/uL BUN (7-17) mg/dL Creatinine (0.52-1.04) mg/dL Glucose (74-99) mg/dL POC Glucose (mg/dL) 325 H 230 H 163 H (70-110) mg/dL Procalcitonin (0.02-0.09) ng/mL 09/27/23 09/27/23 09/27/23 Range/Units 06:34 09:05 09:05 RBC 3.35 L (3.80-5.40) m/uL Hgb 9.7 L (11.4-16.0) gm/dL Hct 30.2 L (34.0-46.0) % RDW 16.4 H (11.5-15.5) % Plt Count 115 L (150-450) k/uL BUN 76 H (7-17) mg/dL Creatinine 1.88 H (0.52-1.04) mg/dL Glucose 108 H (74-99) mg/dL POC Glucose (mg/dL) (70-110) mg/dL Procalcitonin 6.90 H (0.02-0.09) ng/mL 09/27/23 Range/Units 11:24 RBC (3.80-5.40) m/uL Hgb (11.4-16.0) gm/dL Hct (34.0-46.0) % RDW (11.5-15.5) % Plt Count (150-450) k/uL BUN (7-17) mg/dL Creatinine (0.52-1.04) mg/dL Glucose (74-99) mg/dL POC Glucose (mg/dL) 159 H (70-110) mg/dL Procalcitonin (0.02-0.09) ng/mL Microbiology - Last 24 Hours (Table) 09/24/23 10:18 Blood Culture - Preliminary Blood 09/24/23 08:32 Blood Culture - Preliminary Blood 09/22/23 12:47 Blood Culture Gram Stain - Final Blood Blood Culture - Preliminary Assessment and Plan (1) Leg wound, right Current Visit: Yes Status: Acute Code(s): S81.801A - UNSPECIFIED OPEN WOUND, RIGHT LOWER LEG, INITIAL ENCOUNTER SNOMED Code(s): 18840134469424842 (2) Bacteremia Current Visit: No Status: Acute Code(s): R78.81 - BACTEREMIA SNOMED Code(s): 3753707 Plan: 1patient presented to hospital with sepsis in this patient who did have a fever tachycardia elevated white count source likely pneumonia and the patient did have some respiratory symptoms congested cough infiltrate seen on the chest x- ray patient did have a nonhealing wound to the right lower extremity however overall wound base looks clean with no slough tissue no surrounding redness or foul-smelling drainage urine was negative patient did have elevated liver enzymes possible related to hepatic congestion from CHF but other etiologies not excluded, ultrasound of the gallbladder was negative 2-patient did have a positive blood culture finalized as micrococcus patient is more likely contamination than true pathogen,blood cultures has been repeated to document clearance 3-patient is afebrile and the patient white count has normalized, patient c urrently being treated with Unasyn to continue while inpatient will be able to finish therapy with oral Augmentin on discharge Dictation was produced using Mingly dictation software. please excuse any grammatical, word or spelling errors. Time with Patient: Less than 30
[2023-09-28] MEDS: DAPAGLIFLOZIN PROPANEDIOL 10 MG TABLET PO SCH (08:53)
[2023-09-28 11:31] LABS: Glucose,Whole Blood 153 mg/dL (70-110)
[2023-09-28 13:12] LABS: Anisocytosis Slight; HGB 9.1 gm/dL (11.4-16.0); Hypochromasia Slight; MCH 28.3 pg (25.0-35.0); MCHC 31.2 g/dL (31.0-37.0); MCV 90.7 fL (80.0-100.0); Mean Platelet Volume 9.6; Platelet Count 120 k/uL (150-450); RDW 16.4 % (11.5-15.5)
[2023-09-28 13:23] LABS: African American GFR (CKD) 25 (>60 ml/min/1.73 sqM); Anion Gap 9 mmol/L; Blood Urea Nitrogen 77 mg/dL (7-17); Calcium 8.6 mg/dL (8.4-10.2); Carbon Dioxide 24 mmol/L (22-30); Chloride 102 mmol/L (98-107); Glucose 154 mg/dL (74-99); Non-African American GFR(CKD) 22 (>60 ml/min/1.73 sqM); Potassium 4.1 mmol/L (3.5-5.1); Sodium 135 mmol/L (137-145)
--- NOTE | 2023-09-28 13:41 | P.PN ---
Subjective HISTORY OF PRESENT ILLNESS: This is an 88-year-old with past medical history significant for aortic stenosis status post TAVR, chronic atrial fibrillation, mild nonobstructive coronary artery disease. She follows in the office with Dr. Crouch. patient is poor historian and history is obtained by chart. She apparently has been having some SOB and fever as well as worsened confusion. Per history she had a cough the last few days as well. Patient had been found by son with cyanotic lips confused and clammy. She was found to be in Afib with RVR on arrival and given Cardizem with BP dropping significantly to 66/33 and was given stress dose steroids as well as IVF bolus with improvement in BP's. EKG shows Afib with RVR with LBBB. CXray with pulmonary vascular congestion. Initially she was requiring BIPAP however this has been weaned. Echo was performed which showed EF 35-40% with normally functioning TAVR valve, severe RV dilation, severe tricuspid regurgitation. WBC 17.8, HGB 10.3, Cr 1.31, Lactic acid 4.2, Troponin 0.15, 1.4, 2.9, proBNP 2019, procalcitonin 0.54, viral panel negative, Cr increased to 1.98 today. Her pulse ox was in the 50's per EMS on presentation. PRIOR CARDIAC TESTING Cardiac cath from 2019 shows minimal nonobstructive coronary artery disease with severe aortic stenosis. Patient had a TAVR procedure done thereafter. 09/23 Patient seen and examined. Patient denies any chest pain or pressure. Does have occasional cough. No fevers. White blood cell count 10.4, creatinine 2.0 and pro-calcitonin significantly elevated. Blood cultures with gram-positive cocci. patient remains in A. fib with heart rates elevated in the 110 to 1:30 range. 09/26 Patient has been in the intensive care unit with hypotension and atrial fibrillation. Patient required vasopressors which have been discontinued and also has been on amiodarone drip which has been discontinued and transition to oral. Patient has been transferred to the cardiac stepdown unit. She remains in atrial fibrillation heart rate running in the 80s and 90s, blood pressure 126/64, pulse ox 97% on room air. 09/28/2023 Patient examined this morning at the bedside. Patient denies chest pain or pressure. Patient denies shortness of breath. Vital signs are stable. Remote telemetry reveals atrial fibrillation with controlled ventricular rate. Patient is anticoagulated with Eliquis. PHYSICAL EXAM: VITAL SIGNS: Reviewed. GENERAL: Well-developed in no acute distress. NECK: Supple. No JVD or thyromegaly LUNGS: Respirations even and unlabored. Lungs essentially clear to auscultation bilaterally. HEART: Irregular rate and rhythm. S1 and S2 heard. Systolic murmur noted. EXTREMITIES: Normal range of motion. No clubbing or cyanosis. Peripheral pulses intact. No lower extremity edema ASSESSMENT: NSTEMI likely type 2 mechanism from hypoxia pulse ox in the 50's by EMS and hypotension with BP's into the 60's Chronic atrial fibrillation initially RVR, now rate controlled Aortic Stenosis status post TAVR Mild coronary artery disease by cath 2020 Cardiomyopathy EF 35-40%, may be stress induced cardiomyopathy, sepsis or other Polyvalvular disease Severe RV enlargement Chronic systolic heart failure Septic shock and possible pneumonia COPD Hypertension Chronic right lower extremity nonhealing wound Positive blood culture most likely contamination PLAN: Continue current cardiac medications Continue telemetry monitoring Patient is currently stable from a cardiac standpoint Further recommendations pending patient course Patient to follow-up postdischarge with Dr. Crouch Nurse practitioner note has been reviewed by physician. Signing provider agrees with the documented findings, assessment, and plan of care documented by P[employer] SUPER[employer]OR as a scribe. Objective - Vital Signs Vital signs: Vital Signs Temp 98.2 F 09/28/23 11:34 Pulse 90 09/28/23 13:21 Resp 20 09/28/23 11:34 BP 104/62 09/28/23 11:34 Pulse Ox 97 09/28/23 13:21 FiO2 35 09/23/23 04:41 Intake & Output 09/27/23 09/28/23 09/28/23 18:59 06:59 18:59 Intake Total 368 128 Balance 368 128 Weight 95.5 kg Intake: IV 10 10 Invasive Line 4 10 Invasive Line 5 10 Oral 358 118 Other: Voiding Method Bedside Commode Bedside Commode Bedside Commode # Voids 1 1 # Bowel Movements 0 - Labs CBC & Chem 7: 09/28/23 12:32 09/28/23 12:32 Labs: Abnormal Lab Results - Last 24 Hours (Table) 09/27/23 09/27/23 09/27/23 Range/Units 06:34 16:22 20:40 RBC (3.80-5.40) m/uL Hgb (11.4-16.0) gm/dL Hct (34.0-46.0) % RDW (11.5-15.5) % Plt Count (150-450) k/uL Sodium (137-145) mmol/L BUN (7-17) mg/dL Creatinine (0.52-1.04) mg/dL Glucose (74-99) mg/dL POC Glucose (mg/dL) 235 H 252 H (70-110) mg/dL Procalcitonin 6.90 H (0.02-0.09) ng/mL 09/28/23 09/28/23 09/28/23 Range/Units 06:12 11:29 12:32 RBC 3.20 L (3.80-5.40) m/uL Hgb 9.1 L (11.4-16.0) gm/dL Hct 29.0 L (34.0-46.0) % RDW 16.4 H (11.5-15.5) % Plt Count 120 L (150-450) k/uL Sodium (137-145) mmol/L BUN (7-17) mg/dL Creatinine (0.52-1.04) mg/dL Glucose (74-99) mg/dL POC Glucose (mg/dL) 210 H 153 H (70-110) mg/dL Procalcitonin (0.02-0.09) ng/mL 09/28/23 Range/Units 12:32 RBC (3.80-5.40) m/uL Hgb (11.4-16.0) gm/dL Hct (34.0-46.0) % RDW (11.5-15.5) % Plt Count (150-450) k/uL Sodium 135 L (137-145) mmol/L BUN 77 H (7-17) mg/dL Creatinine 2.01 H (0.52-1.04) mg/dL Glucose 154 H (74-99) mg/dL POC Glucose (mg/dL) (70-110) mg/dL Procalcitonin (0.02-0.09) ng/mL Microbiology - Last 24 Hours (Table) 09/24/23 10:18 Blood Culture - Preliminary Blood 09/24/23 08:32 Blood Culture - Preliminary Blood
[2023-09-28 15:20] VITALS: BMI 31.1
--- NOTE | 2023-09-28 15:20 | P.PN ---
Subjective Progress Note Date: 09/28/23 88-year-old female who was seen by Dr. Terrazas in the emergency department, for difficulty breathing, and elevated temperature. According to the family, the patient was fine yesterday, but today, was noted to have a hard time breathing, had some confusion and mental status changes, had very low saturations, blue lips, and generally would just not well. Also, apparently, she has been coughing quite a bit for the last few days. The patient is seen in the emergency department, in the trauma room. A family member is at the bedside. He gives most of the history. The patient is placed on BiPAP, with settings at 10/5 and 50%. The patient did receive a liter of saline, and was on a Cardizem drip at 5 mg an hour, but that was discontinued. The patient is a DO NOT RESUSCITATE patient. The patient has a history of atrial fibrillation, COPD, diabetes, hyperlipidemia, hypertension, dementia, and osteoarthritis. The patient has had a previous transcatheter aortic valve replacement as well. Recently, the patient has been following at the wound clinic for nonhealing leg ulcerations and wounds. Current laboratory data includes a white count of 17.8, hemoglobin 10.3, hematocrit 32.8, and a platelet count of 145,000. Sodium 139, potassium 4.3, chlorides 106, CO2 20, anion gap 13, BUN 56, and creatinine 1.31. Lactic acid initially was 4.2. Repeat was 1.8. Glucose was 171. Troponin was 0.155 and 1.430. N-terminal proBNP is 2020. The patient tested negative for influenza, AMB, RSV, coronavirus. Urine had trace protein, trace ketones, trace leukocyte esterase, but no bacteria. EKG shows atrial fibrillation with a rapid ventricular response, 155 bpm. Chest x-ray shows diffuse haziness, likely consistent with fluid overload/CHF. Progress note dated September 23, 2023. 88-year-old female well-known to me. The patient was seen in the emergency department yesterday, with respiratory failure. She was brought in because of low saturations, fever, and, had a chest x-ray that was consistent with fluid overload/CHF. The patient was also having episodes of atrial fibrillation with RVR. She is seen today in the ICU, room 267. She had arterial blood gases which show pO2 of 200, pCO2 of 45, pH is 7.32. The patient was on BiPAP, with settings of 10/5 and 35%. Currently she is on 3 L of oxygen. The patient continues on heparin via weight-based protocol, norepinephrine at 2.5 mcg/min, and saline at 75 cc an hour, which will be converted to keep vein open IV. She also continues on Zosyn and vancomycin. She will get 1 dose of Lasix today, 40 mg IV push. Current labs include a white count 19.6, hemoglobin 9.8, hematocrit 32.2, and a platelet count of 113,000. PTT is 38.5. Sodium 142, potassium 4.1, chlorides 109, CO2 22, anion gap 11, BUN 65, and creatinine 1.98. Glucose is 257. AST is 108. ALT is 72. Procalcitonin level is elevated at 0.54. Troponin was 2.910. N-terminal proBNP was 2020. Progress note dated September 24, 2023. 88-year-old female, seen in room 267. She is laying in bed, on room air. She is getting saline at 10 cc an hour, and norepinephrine at 1 mcg/min. She continues on IV heparin. She did not use the BiPAP device last night, and I sewell ve asked the nurses to discontinue the BiPAP from her room. Current laboratory data includes a white count 18.4, hemoglobin 9.1, hematocrit 29.3, platelet count 128,000. PTT is 61.2. Sodium 136, potassium 3.6, chlorides 108, CO2 17, anion gap 11, BUN 75, and creatinine 2.01. Glucose is 299. Procalcitonin level is 50.6. Thus far cultures are negative. No chest x-ray today. The patient continues on Ancef. Progress note dated September 25, 2023. 88-year-old female seen in room 267. The patient is currently on room air. Norepinephrine has been weaned off. She continues on amiodarone at 0.5 mg/min. Blood cultures were positive for micrococcus. Laboratory data includes a white count of 17.7, hemoglobin 9, hematocrit 28.3, and platelet count of 127,000. Sodium 134, potassium 3.7, chlorides 106, CO2 20, BUN 72, creatinine 2.05. Glucose is 210. Calcium is 8.4. Chest x-ray shows cardiomegaly, with pulmonary venous congestion. Clinically, the patient is doing much better. She had an uneventful night according to the nurses. Progress note dated September 26, 2023. 88-year-old female seen today in room 267. Currently, the patient is doing much better. She is currently on room air. She is getting saline at 10 cc an hour. She was stable overnight, and likely can be transferred out to the cardiac floor. Today's labs include a white count 10.2, hemoglobin 9, hematocrit 27.5, and a platelet count of 100,000. Sodium 134, potassium 4.6, chlorides 105, CO2 23, BUN 72, creatinine 1.80. Glucose 103. Calcium 8.7. Blood cultures were positive for micrococcus species. No chest x-ray today. The patient continues on Unasyn. Progress note dated September 27, 2023. 88-year-old female seen today in room 360. The patient is currently on room air. She is receiving Unasyn. She is getting saline at 10 cc an hour. Family members are at the bedside. Current laboratory data includes a white count 7.3, hemoglobin 9.7, hematocrit 30.2, and a platelet count of 115,000. Sodium 137, potassium 4.4, chlorides 105, CO2 23, BUN 76, and creatinine 1.88. Glucose is 159. Calcium is 9.0. Blood cultures from September 21 were positive for micrococcus species. On today's evaluation of 09/28/2023, the patient is doing well. She is awake and alert and communicating. She denies having any specific complaints. No chest pain. She is completing her course of antibiotics and the patient is currently on IV Unasyn. She remains on anticoagulation with Eliquis 2.5 mg twice a day. She is on Lasix 20 mg p.o. daily. She is also on Levemir insulin 10 units along with NovoLog 7 units with meals. IV fluids are at KVO. No significant respite distress at this point in time. Her atrial fibrillation is under adequate control and the patient is currently on a combination of metoprolol 25 mg 3 times daily and amiodarone 200 mg p.o. twice daily. Blood work from today shows a WBC count of 10 with a hemoglobin 9.1 and a platelet count of 120, BUN is at 77 with a creatinine of 2.01 and the creatinine has been essentially stable with a sodium level of 135. Procalcitonin level has dropped significantly is currently down to 6.9. Objective - Vital Signs Vital signs: Vital Signs Temp 98.0 F 09/28/23 08:32 Pulse 116 H 09/28/23 08:32 Resp 20 09/28/23 08:32 BP 147/77 09/28/23 08:32 Pulse Ox 98 09/28/23 08:32 FiO2 35 09/23/23 04:41 Intake & Output 09/27/23 09/28/23 09/28/23 18:59 06:59 18:59 Intake Total 368 128 Balance 368 128 Weight 95.5 kg Intake: IV 10 10 Invasive Line 4 10 Invasive Line 5 10 Oral 358 118 Other: Voiding Method Bedside Commode Bedside Commode Bedside Commode # Voids 1 # Bowel Movements 0 - Exam Patient much more awake and responsive today. Currently just on room air. Calm and comfortable. HEENT examination is grossly unremarkable. Neck supple. Full range of motion. No adenopathy thyromegaly or neck vein distention. Cardiovascular examination reveals an irregular rhythm and rate. S1-S2 normal. No S3 or S4. No discernible murmur noted. Sounds distant. Lungs reveal scattered rhonchi. No wheezes. Breath sounds equal. Abdomen soft without bowel sounds. No masses. Extremities are intact. Chronic venous stasis changes noted. No cyanosis. No clubbing. Skin reveals chronic changes. Neurologic examination is brief but nonfocal. The patient appears to be back to baseline. - Labs CBC & Chem 7: 09/28/23 12:32 09/28/23 12:32 Labs: Abnormal Lab Results - Last 24 Hours (Table) 09/27/23 09/27/23 09/27/23 Range/Units 06:34 11:24 16:22 POC Glucose (mg/dL) 159 H 235 H (70-110) mg/dL Procalcitonin 6.90 H (0.02-0.09) ng/mL 09/27/23 09/28/23 Range/Units 20:40 06:12 POC Glucose (mg/dL) 252 H 210 H (70-110) mg/dL Procalcitonin (0.02-0.09) ng/mL Microbiology - Last 24 Hours (Table) 09/24/23 10:18 Blood Culture - Preliminary Blood 09/24/23 08:32 Blood Culture - Preliminary Blood Assessment and Plan Plan: Acute hypoxemic respiratory failure, possibly multifactorial, likely related to atrial fibrillation, fluid overload, and or pneumonia. The patient is currently on room air oxygen. No significant signs of respiratory distress at this point in time. Sepsis with bacteremia, secondary to micrococcus species. the procalcitonin level has dropped significantly and currently down to 6 and the patient continues to be on IV Unasyn Atrial fibrillation with RVR. The rate is controlled at this point in time and the patient is on a combination with Toprol 25 mg 3 times daily, amiodarone 5 mg p.o. twice daily and anticoagulation with Eliquis Cough and fever, rule out pneumonia, improved Mild nonanion gap metabolic acidosis, improved Chronic stage stage III kidney disease History of hyperlipidemia. Diabetes mellitus. Prior history of transcatheter aortic valve replacement. History of dementia. History of COPD. History of hyperlipidemia. History of hypertension. Chronic lower extremity wounds.. Plan: Clinically stable Patient is currently on room air oxygen Hemodynamically stable and the patient is on no pressors Remains in atrial fibrillation at the rate is controlled and the patient is currently on a combination of metoprolol and amiodarone and anticoagulation with Eliquis Continue IV Unasyn Procalcitonin level is dropped No signs of any active septicemia at this point in time DNR/DNI CODE STATUS
[2023-09-28 16:32] LABS: Glucose,Whole Blood 162 mg/dL (70-110)
--- NOTE | 2023-09-28 17:26 | P.PN ---
Subjective Progress Note Date: 09/28/23 (Delayed charting seen at 1110) Patient is a 88-year-old female diabetes mellitus type 2 with peripheral neuropathy, chronic A-fib on Eliquis, COPD, hypertension, dyslipidemia, and chronic right lower extremity nonhealing ulcer who presented to the emergency department due to confusion, fever and hypoxia. In the emergency department she underwent extensive evaluation. Initial vital signs showed a T temperature of 100.3 and hypoxia with an O2 sat of 93% on 6 L. Initial laboratory analysis was remarkable for WBC 17.8, Hg 10.3, Hct 32.8, Plt 145, bicarb 20, BUN 56, Cr 1.31, glu 171, T. bili 1.7, AST 71, ALT 38, alk phos 186. Lactic acid 4.2. Troponin 0.155, 1.43. EKG done in the emergency department demonstrated atrial fibrillation with rapid ventricular response. Influenza A/B/RSV/COVID 19 testing was negative. Chest x-ray demonstrated pulmonary vascular congestion with trace pleural effusions. She was given 2 L of normal saline was started on IV Cardizem and her blood pressure became labile down to 66/33. She was also started on hydrocortisone 100 mg IV push x 1. She was then started on BiPAP. She was admitted to the ICU due to A-fib with RVR, acute hypoxic respiratory failure, and possible septic shock. She was initiated on Levophed, Vanco, and Zosyn. Blood and urine cultures were collected. Cardiology was consulted and she underwent echocardiogram which showed an ejection fraction of 35 to 40%. Her troponins elevated with a max at 2.91. Cardiology felt that she was a poor candidate for cardiac catheterization and recommended continuing heparin drip for 48 hours. Once this was completed she was transitioned back to Eliquis. She was started on Lasix on 09/22 and was able to be weaned off of BiPAP. She again went into A-fib with RVR on 09/24 requiring initiation of amiodarone drip which was subsequently transition to oral. She did have 2 out of 2 blood cultures come back +1 for micrococcus and 1 where the species would not continue to grow for speciation. Infectious disease was subsequently consulted. Vanco and Zosyn were discontinued and the patient was switched to cefazolin and then ultimately to Unasyn. She was able to come off of Levophed by 09/24. It was felt that her blood cultures were likely due to contamination. Urine culture was negative. Sputum cultures were negative. Procalcitonin initially was 0.54 and maxed at 50 now down to 6.9. She was also followed by pulmonary during her hospital stay. Patient seen and examined at bedside. She has no complaints. Feeling better than yesterday. Having more energy. No shortness of breath. No chest pain. No other complaints at this time. Vital signs reviewed General: Nontoxic, no distress, appears at stated age Cardiovascular: S1S2 reg, no murmur Lungs: CTA bilateral, no rhonchi, no rales, no accessory muscle use Abdominal: Soft, nontender to palpation, no guarding Ext: No gross muscle atrophy, 1+ edema b/l lower extremities, no contractures, dressing over right lower extremity wound Neuro: CN II-XI grossly intact, no focal neuro deficits Psych: Alert, oriented, appropriate affect Assessment/Plan: Newly discovered systolic congestive heart failure with ejection fraction 35 to 40% Non-ST segment elevated myocardial infarction likely multifactorial Atrial fibrillation with rapid ventricular response Acute hypoxic respiratory failure due to above -Cardiology note reviewed: Follow-up post discharge with Dr. Crouch. -Lipitor 40 mg daily, Eliquis 2.5 mg daily, Lipitor 40 mg daily, amiodarone 200 mg twice daily, Lasix 20 mg daily, Lopressor 25 mg 3 times daily - Farxiga 10 mg oral daily. Still appears fluid overloaded but adding farxiga so will not increase diuretic at this time. - Ideally should also have ARB and mineralocorticoid ordered ordered however unable to do so secondary to acute kidney injury -Pulmonary note reviewed: Continue with Unasyn. Acute kidney injury on chronic kidney disease stage IIIa -stable -Likely component of cardio renal syndrome - consult nephrology -No [place] inhibitor due to MAE -Repeat basic metabolic profile in a.m. Diabetes mellitus type 2 with hyperglycemia -Metformin on hold -h NovoLog 4 units 3 times daily, sliding scale insulin, levemir to 8 units at night, farxiga 10 mg daily. -Suspect hyperglycemia is likely secondary to steroid use -A1c 5.5 - Jardiance cost prohibitive will check farxiga pricing for discharge. Chronic right lower extremity wound -Infectious disease note reviewed: Augmentin on discharge. Anemia and thrombocytopenia -Undetermined etiology -Baseline -Follow-up as outpatient Toxic metabolic encephalopathy, resolved Bacteremia, contaminant Septic shock, resolved Imaging: None new Hospital course imaging: Echocardiogram: Ejection fraction 35 to 40%, septum dyskinesis, severe right ventricular dilatation with globally reduced systolic function, moderate right atrial dilatation, normally functioning bioprosthetic aortic valve Head CT: No acute hemorrhage Gallbladder ultrasound: Hepatomegaly gallbladder surgically absent Renal ultrasound: Nonobstructing calculus lower right pole Data Review: Labs reviewed from today include CBC and basic metabolic profile which are remarkable for hemoglobin 9.1, platelets 120, sodium 135, BUN 77, creatinine 2.01. DVT prophylaxis: Eliquis Anticipated discharge date: In 2 to [address]: Home with home health This dictation was prepared using [employer] voice recognition software. Though every attempt is made to correct errors during dictation some may still exist. Objective - Vital Signs Vital signs: Vital Signs Temp 98.0 F 09/28/23 16:49 Pulse 97 09/28/23 16:49 Resp 20 09/28/23 16:49 BP 114/66 09/28/23 16:49 Pulse Ox 96 09/28/23 16:49 FiO2 35 09/23/23 04:41 Intake & Output 09/27/23 09/28/23 09/28/23 18:59 06:59 18:59 Intake Total 368 286 Balance 368 286 Weight 95.5 kg 95.5 kg Intake: IV 10 50 Invasive Line 4 30 Invasive Line 5 10 20 Oral 358 236 Other: Voiding Method Bedside Commode Bedside Commode Bedside Commode # Voids 1 1 # Bowel Movements 0 - Labs CBC & Chem 7: 09/28/23 12:32 09/28/23 12:32 Labs: Abnormal Lab Results - Last 24 Hours (Table) 09/27/23 09/28/23 09/28/23 Range/Units 20:40 06:12 11:29 RBC (3.80-5.40) m/uL Hgb (11.4-16.0) gm/dL Hct (34.0-46.0) % RDW (11.5-15.5) % Plt Count (150-450) k/uL Sodium (137-145) mmol/L BUN (7-17) mg/dL Creatinine (0.52-1.04) mg/dL Glucose (74-99) mg/dL POC Glucose (mg/dL) 252 H 210 H 153 H (70-110) mg/dL 09/28/23 09/28/23 09/28/23 Range/Units 12:32 12:32 16:31 RBC 3.20 L (3.80-5.40) m/uL Hgb 9.1 L (11.4-16.0) gm/dL Hct 29.0 L (34.0-46.0) % RDW 16.4 H (11.5-15.5) % Plt Count 120 L (150-450) k/uL Sodium 135 L (137-145) mmol/L BUN 77 H (7-17) mg/dL Creatinine 2.01 H (0.52-1.04) mg/dL Glucose 154 H (74-99) mg/dL POC Glucose (mg/dL) 162 H (70-110) mg/dL Microbiology - Last 24 Hours (Table) 09/24/23 10:18 Blood Culture - Preliminary Blood 09/24/23 08:32 Blood Culture - Preliminary Blood
[2023-09-28] MEDS: INSULIN ASPART (NovoLOG) 100 UNIT/ML VIAL SQ SCH (17:51)
[2023-09-28 20:19] LABS: Glucose,Whole Blood 155 mg/dL (70-110)
[2023-09-28] MEDS: INSULIN DETEMIR (LEVEMIR) 100 UNIT/ML SYR SQ SCH (21:35)
[2023-09-29 06:00] LABS: Glucose,Whole Blood 103 mg/dL (70-110)
--- NOTE | 2023-09-29 08:13 | P.PN ---
Subjective Progress Note Date: 09/28/23 Principal diagnosis: Reason for follow-up is sepsis and bacteremia Patient is a 88-year-old female with a past medical history being for diabetes mellitus hypertension hyperlipidemia COPD atrial fibrillation patient did have a chronic nonhealing wound to the right lower extremity, presented to the hospital for evaluation of difficulty breathing patient did have a fever with concern for possible pneumonia versus abdominal source. On today's evaluation that is 09/28/2023,the patient denies any fever or any chills, patient is breathing comfortably on room air, the patient denies chest pain shortness of breath and cough has decreased in intensity, patient denies a bdominal pain, no nausea vomiting or diarrhea, Denies pain to the right lower extremity wound area. Patient white count is normal at 10,000, creatinine is 2.01 blood culture repeat has been negative sputum is negative Objective - Vital Signs Vital signs: Vital Signs Temp 98.2 F 09/28/23 11:34 Pulse 90 09/28/23 16:11 Resp 20 09/28/23 11:34 BP 104/62 09/28/23 11:34 Pulse Ox 97 09/28/23 13:21 FiO2 35 09/23/23 04:41 Intake & Output 09/27/23 09/28/23 09/28/23 18:59 06:59 18:59 Intake Total 368 276 Balance 368 276 Weight 95.5 kg 95.5 kg Intake: IV 10 40 Invasive Line 4 20 Invasive Line 5 10 20 Oral 358 236 Other: Voiding Method Bedside Commode Bedside Commode Bedside Commode # Voids 1 1 # Bowel Movements 0 - Exam GENERAL DESCRIPTION: An elderly female lying in bed in no distress RESPIRATORY SYSTEM: Unlabored breathing , decreased breath sounds at bases HEART: S1 S2 regular rate and rhythm , ABDOMEN: Soft , no tenderness EXTREMITIES: Right leg wound base looks clean with no slough tissue surrounding redness - Labs CBC & Chem 7: 09/28/23 12:32 09/28/23 12:32 Labs: Abnormal Lab Results - Last 24 Hours (Table) 09/27/23 09/28/23 09/28/23 Range/Units 20:40 06:12 11:29 RBC (3.80-5.40) m/uL Hgb (11.4-16.0) gm/dL Hct (34.0-46.0) % RDW (11.5-15.5) % Plt Count (150-450) k/uL Sodium (137-145) mmol/L BUN (7-17) mg/dL Creatinine (0.52-1.04) mg/dL Glucose (74-99) mg/dL POC Glucose (mg/dL) 252 H 210 H 153 H (70-110) mg/dL 09/28/23 09/28/23 09/28/23 Range/Units 12:32 12:32 16:31 RBC 3.20 L (3.80-5.40) m/uL Hgb 9.1 L (11.4-16.0) gm/dL Hct 29.0 L (34.0-46.0) % RDW 16.4 H (11.5-15.5) % Plt Count 120 L (150-450) k/uL Sodium 135 L (137-145) mmol/L BUN 77 H (7-17) mg/dL Creatinine 2.01 H (0.52-1.04) mg/dL Glucose 154 H (74-99) mg/dL POC Glucose (mg/dL) 162 H (70-110) mg/dL Microbiology - Last 24 Hours (Table) 09/24/23 10:18 Blood Culture - Preliminary Blood 09/24/23 08:32 Blood Culture - Preliminary Blood Assessment and Plan (1) Leg wound, right Current Visit: Yes Status: Acute Code(s): S81.801A - UNSPECIFIED OPEN WOUND, RIGHT LOWER LEG, INITIAL ENCOUNTER SNOMED Code(s): 94262408230179147 (2) Bacteremia Current Visit: No Status: Acute Code(s): R78.81 - BACTEREMIA SNOMED Code(s): 7573684 Plan: 1patient presented to hospital with sepsis in this patient who did have a fever tachycardia elevated white count source likely pneumonia and the patient did have some respiratory symptoms congested cough infiltrate seen on the chest x- ray patient did have a nonhealing wound to the right lower extremity however overall wound base looks clean with no slough tissue no surrounding redness or foul-smelling drainage urine was negative patient did have elevated liver enzymes possible related to hepatic congestion from CHF but other etiologies not excluded, ultrasound of the gallbladder was negative 2-patient did have a positive blood culture finalized as micrococcus patient is more likely contamination than true pathogen,blood cultures has been repeated to document clearance 3-patient is afebrile and the patient white count has normalized, 4-patient will be treated with Unasyn while inpatient and will transition to oral Augmentin on discharge Son at the bedside questions were answered Dictation was produced using [employer] dictation software. please excuse any grammatical, word or spelling errors. Time with Patient: Less than 30
[2023-09-29 09:31] LABS: Anisocytosis Slight; HCT 25.2 % (34.0-46.0); HGB 8.4 gm/dL (11.4-16.0); MCH 30.1 pg (25.0-35.0); MCHC 33.5 g/dL (31.0-37.0); MCV 89.8 fL (80.0-100.0); Mean Platelet Volume 9.1; Platelet Count 128 k/uL (150-450); RDW 16.3 % (11.5-15.5); WBC 10.8 k/uL (3.8-10.6)
[2023-09-29 09:34] VITALS: RESP 18
[2023-09-29 09:46] LABS: African American GFR (CKD) 29 (>60 ml/min/1.73 sqM); Anion Gap 5 mmol/L; Blood Urea Nitrogen 74 mg/dL (7-17); Calcium 8.3 mg/dL (8.4-10.2); Carbon Dioxide 26 mmol/L (22-30); Chloride 106 mmol/L (98-107); Non-African American GFR(CKD) 25 (>60 ml/min/1.73 sqM); Potassium 3.6 mmol/L (3.5-5.1); Sodium 137 mmol/L (137-145)
[2023-09-29 09:53] LABS: Glucose 44 mg/dL (74-99)
[2023-09-29 09:59] LABS: Glucose,Whole Blood 61 mg/dL (70-110)
[2023-09-29 10:17] LABS: Glucose,Whole Blood 78 mg/dL (70-110)
--- NOTE | 2023-09-29 10:54 | P.PN ---
Subjective HISTORY OF PRESENT ILLNESS: This is an 88-year-old with past medical history significant for aortic stenosis status post TAVR, chronic atrial fibrillation, mild nonobstructive coronary artery disease. She follows in the office with Dr. Crouch. patient is poor historian and history is obtained by chart. She apparently has been having some SOB and fever as well as worsened confusion. Per history she had a cough the last few days as well. Patient had been found by son with cyanotic lips confused and clammy. She was found to be in Afib with RVR on arrival and given Cardizem with BP dropping significantly to 66/33 and was given stress dose steroids as well as IVF bolus with improvement in BP's. EKG shows Afib with RVR with LBBB. CXray with pulmonary vascular congestion. Initially she was requiring BIPAP however this has been weaned. Echo was performed which showed EF 35-40% with normally functioning TAVR valve, severe RV dilation, severe tricuspid regurgitation. WBC 17.8, HGB 10.3, Cr 1.31, Lactic acid 4.2, Troponin 0.15, 1.4, 2.9, proBNP 2019, procalcitonin 0.54, viral panel negative, Cr increased to 1.98 today. Her pulse ox was in the 50's per EMS on presentation. PRIOR CARDIAC TESTING Cardiac cath from 2019 shows minimal nonobstructive coronary artery disease with severe aortic stenosis. Patient had a TAVR procedure done thereafter. 09/23 Patient seen and examined. Patient denies any chest pain or pressure. Does have occasional cough. No fevers. White blood cell count 10.4, creatinine 2.0 and pro-calcitonin significantly elevated. Blood cultures with gram-positive cocci. patient remains in A. fib with heart rates elevated in the 110 to 1:30 range. 09/26 Patient has been in the intensive care unit with hypotension and atrial fibrillation. Patient required vasopressors which have been discontinued and also has been on amiodarone drip which has been discontinued and transition to oral. Patient has been transferred to the cardiac stepdown unit. She remains in atrial fibrillation heart rate running in the 80s and 90s, blood pressure 126/64, pulse ox 97% on room air. 09/28/2023 Patient examined this morning at the bedside. Patient denies chest pain or pressure. Patient denies shortness of breath. Vital signs are stable. Remote telemetry reveals atrial fibrillation with controlled ventricular rate. Patient is anticoagulated with Eliquis. 09/29/2023 Patient examined this morning at bedside. Patient states that she had a bad night last night as she was having difficulty sleeping. She denies any chest pain or pressure this morning. She denies any shortness of breath. Vital signs are stable. PHYSICAL EXAM: VITAL SIGNS: Reviewed. GENERAL: Well-developed in no acute distress. NECK: Supple. No JVD or thyromegaly LUNGS: Respirations even and unlabored. Lungs essentially clear to auscultation bilaterally. HEART: Irregular rate and rhythm. S1 and S2 heard. Systolic murmur noted. EXTREMITIES: Normal range of motion. No clubbing or cyanosis. Peripheral pulses intact. Trace bilateral lower extremity edema ASSESSMENT: NSTEMI likely type 2 mechanism from hypoxia pulse ox in the 50's by EMS and hypotension with BP's into the 60's Chronic atrial fibrillation initially RVR, now rate controlled Aortic Stenosis status post TAVR Mild coronary artery disease by cath 2020 Cardiomyopathy EF 35-40%, may be stress induced cardiomyopathy, sepsis or other Polyvalvular disease Severe RV enlargement Chronic systolic heart failure Septic shock and possible pneumonia COPD Hypertension Chronic right lower extremity nonhealing wound Positive blood culture most likely contamination PLAN: Continue current cardiac medications Continue telemetry monitoring Patient is currently stable for discharge from a cardiac standpoint Further recommendations pending patient course Patient to follow-up postdischarge with Dr. Crouch Nurse practitioner note has been reviewed by physician. Signing provider agrees with the documented findings, assessment, and plan of care documented by VISUAL EDUCATION DIRECTOR as a scribe. Objective - Vital Signs Vital signs: Vital Signs Temp 98.0 F 09/29/23 07:53 Pulse 90 09/29/23 10:08 Resp 18 09/29/23 07:53 BP 128/74 09/29/23 07:53 Pulse Ox 99 09/29/23 07:53 FiO2 35 09/23/23 04:41 Intake & Output 09/28/23 09/29/23 09/29/23 18:59 06:59 18:59 Intake Total 404 10 Output Total 400 Balance 404 -400 10 Weight 95.5 kg Intake: IV 50 10 Invasive Line 4 30 10 Invasive Line 5 20 Oral 354 Output: Urine 400 Other: Voiding Method Bedside Commode Bedside Commode Toilet # Voids 1 2 - Labs CBC & Chem 7: 09/29/23 08:40 09/29/23 08:40 Labs: Abnormal Lab Results - Last 24 Hours (Table) 09/28/23 09/28/23 09/28/23 Range/Units 11:29 12:32 12:32 WBC (3.8-10.6) k/uL RBC 3.20 L (3.80-5.40) m/uL Hgb 9.1 L (11.4-16.0) gm/dL Hct 29.0 L (34.0-46.0) % RDW 16.4 H (11.5-15.5) % Plt Count 120 L (150-450) k/uL Sodium 135 L (137-145) mmol/L BUN 77 H (7-17) mg/dL Creatinine 2.01 H (0.52-1.04) mg/dL Glucose 154 H (74-99) mg/dL POC Glucose (mg/dL) 153 H (70-110) mg/dL Calcium (8.4-10.2) mg/dL 09/28/23 09/28/23 09/29/23 Range/Units 16:31 20:06 08:40 WBC 10.8 H (3.8-10.6) k/uL RBC 2.80 L (3.80-5.40) m/uL Hgb 8.4 L (11.4-16.0) gm/dL Hct 25.2 L (34.0-46.0) % RDW 16.3 H (11.5-15.5) % Plt Count 128 L (150-450) k/uL Sodium (137-145) mmol/L BUN (7-17) mg/dL Creatinine (0.52-1.04) mg/dL Glucose (74-99) mg/dL POC Glucose (mg/dL) 162 H 155 H (70-110) mg/dL Calcium (8.4-10.2) mg/dL 09/29/23 09/29/23 Range/Units 08:40 09:57 WBC (3.8-10.6) k/uL RBC (3.80-5.40) m/uL Hgb (11.4-16.0) gm/dL Hct (34.0-46.0) % RDW (11.5-15.5) % Plt Count (150-450) k/uL Sodium (137-145) mmol/L BUN 74 H (7-17) mg/dL Creatinine 1.81 H (0.52-1.04) mg/dL Glucose 44 L* (74-99) mg/dL POC Glucose (mg/dL) 61 L (70-110) mg/dL Calcium 8.3 L (8.4-10.2) mg/dL
[2023-09-29 11:25] LABS: Glucose,Whole Blood 140 mg/dL (70-110)
--- NOTE | 2023-09-29 11:37 | P.NPCON ---
History of Present Illness - Reason for Consult acute renal failure - History of Present Illness patient is an 88-year-old female with history of type 2 diabetes chronic A. fib, hypertension, right lower leg chronic wound. Patient presented to the hospital with mental status changes fever and decreased O2 sats. Patient was also noted to be in A. fib with RVR on initial presentation. No previous history of kidney disease. serum creatinine was 1.9 on initial admission and increased to 2.0. It is 1.8 t clay[place]. chest x-ray shows evidence of CHF and patient is currently being diuresed. she is maintained on low-dose oral Lasix. Overall patient states she is feeling much better. blood pressure was low with systolic noted in the 90s. Patient was maintained on FESTUS inhibitor's which are currently on hold. started on farxiga this admission. ejection fraction at 35-40%. Review of Systems as per HPI Past Medical History Past Medical History: Atrial Fibrillation, COPD, Diabetes Mellitus, Hyperlipidemia, Hypertension, Memory Impairment, Osteoarthritis (OA) Additional Past Medical History / Comment(s): possible Hiatal Hernia, left neck mass History of Any Multi-Drug Resistant Organisms: None Reported Past Surgical History: Cardiac Valve Replacement, Cholecystectomy, Orthopedic Surgery Additional Past Surgical History / Comment(s): Right knee surgery X5, Hammer Toe surgery, left knee arthroscopy Past Anesthesia/Blood Transfusion Reactions: Previous Problems w/ Anesthesia Additional Past Anesthesia/Blood Transfusion Reaction / Comment(s): Woke up during last knee surgery. Smoking Status: Current some day smoker - Past Family History Father Family Medical History: Cancer Additional Family Medical History / Comment(s): Prostate Cancer. Brother(s) Additional Family Medical History / Comment(s): Blood clot from surgery. Medications and Allergies Home Medications Medication Instructions Recorded Confirmed Type Apixaban [Eliquis] 2.5 mg PO BID 10/10/18 09/22/23 History Atorvastatin [Lipitor] 40 mg PO Q48H 10/10/18 09/22/23 History Latanoprost/Pf [Latanoprost 0.005% 1 drop RIGHT EYE HS 10/10/18 09/22/23 History Eye Drop] Multivitamins, Thera [Multivitamin 1 tab PO DAILY 10/10/18 09/22/23 History (formulary)] metFORMIN HCL [metFORMIN HCL ER] 750 mg PO BID-W/MEALS 10/10/18 09/22/23 History Donepezil [Aricept] 10 mg PO DAILY 12/27/20 09/22/23 History Calcium 1000mg 1 tab PO DAILY 01/23/23 09/22/23 History Co Q-10 100mg 1 tab PO DAILY 01/23/23 09/22/23 History Zinc Gluconate [Zinc] 50 mg PO DAILY 01/23/23 09/22/23 History Furosemide [Lasix] 20 mg PO DAILY #0 07/23/23 09/22/23 Rx Gabapentin 300 mg PO TID #9 cap 07/23/23 09/22/23 Rx Ascorbic Acid [Vitamin C] 1,000 mg PO DAILY 09/22/23 09/22/23 History Cholecalciferol [Vitamin D3 (25 25 mcg PO DAILY 09/22/23 09/22/23 History Mcg = 1000 Iu)] Ferrous Sulfate [Iron (65 MG 325 mg PO HS 09/22/23 09/22/23 History Elemental)] Fosinopril/Hydrochlorothiazide 1 tab PO DAILY 09/22/23 09/22/23 History [Monopril HCT 10-12.5 mg Tab] Memantine [Namenda] 10 mg PO BID 09/22/23 09/22/23 History Metoprolol Tartrate [Lopressor] 25 mg PO DAILY 09/22/23 09/22/23 History Zolpidem [Ambien] 5 mg PO HS PRN 09/22/23 09/22/23 History traMADol HCL 100 mg PO BID 09/22/23 09/22/23 History Dapagliflozin Propanediol [Farxiga] 10 mg PO DAILY #30 tablet 09/28/23 Rx Allergies Allergy/AdvReac Type Severity Reaction Status Date / Time Paper Tape Allergy Redness/Itc Uncoded 07/12/23 21:52 erick Physical Exam Vitals: Vital Signs Temp Pulse Pulse Resp BP Pulse Ox 09/29/23 10:08 90 09/29/23 09:58 88 09/29/23 09:57 88 09/29/23 09:44 85 09/29/23 07:53 98.0 F 85 18 128/74 99 09/29/23 04:00 98.1 F 74 19 110/59 96 09/29/23 00:00 98.2 F 97 19 117/53 96 09/28/23 21:59 88 09/28/23 21:50 90 09/28/23 21:35 94 09/28/23 20:00 98.2 F 90 19 100/53 96 09/28/23 16:49 98.0 F 97 20 114/66 96 09/28/23 16:11 90 09/28/23 15:58 88 09/28/23 13:21 90 97 09/28/23 13:08 92 09/28/23 11:34 98.2 F 87 20 104/62 95 Intake and Output 09/28/23 09/29/23 09/29/23 22:59 06:59 14:59 Intake Total 128 10 Output Total 400 Balance -272 10 Intake: IV 10 10 Invasive Line 4 10 10 Oral 118 Output: Urine 400 Other: Voiding Method Bedside Commode Bedside Commode Toilet # Voids 2 2 Weight 95.5 kg patient is awake, comfortable, no acute distress Examination of the heart S1 and S2 Examination of the lungs bilateral breath sounds are heard Examination of the lower extremities shows right lower leg is wrapped. 1+ edema left leg BLIND ESCORT exam is grossly intact Results - Lab Results Most recent lab results ABG pH 7.32 (7.35-7.45) L 09/23/23 00:22 ABG pCO2 45 mmHg (35-45) 09/23/23 00:22 ABG pO2 200 mmHg (83-108) H 09/23/23 00:22 ABG HCO3 23 mmol/L (21-25) 09/23/23 00:22 ABG O2 Saturation 99.8 % (94-97) H 09/23/23 00:22 Calcium 8.3 mg/dL (8.4-10.2) L 09/29/23 08:40 Magnesium 1.9 mg/dL (1.6-2.3) 09/24/23 07:48 09/29/23 08:40 09/29/23 08:40 Assessment and Plan Assessment: 1. Acute kidney injury, ATN secondary to hypotension and element of cardiorenal syndrome. Renal function currently stable with creatinine fluctuating between 1.8-2 mg/dL. previous creatinine 1.2-1.1 in July 2023. UA shows trace protein 2. CHF systolic acute on chronic, improved. Ejection fraction 35-40% with severe right ventricular enlargement. Started on Farxiga this admission. 3. Volume overload, improved 4. Micrococcus species bacteremia with repeat blood cultures the gated thus far. Status post antibiotics 5. Acute hypoxic respiratory failure secondary to CHF exacerbation, currently improved 6. A. fib with RVR status post Cardizem drip. Maintained on oral amiodarone Plan: Increase lasix dose to 40 mg twice a day for 3-4 days and then 40 mg daily Continue Farxiga Check ultrasound of the kidneys prior to discharge. F/u as out patient in 1-2 weeks. Will try to resume Festus inhibitors as outpatient. thank you for the consultation. We will continue to follow the patient with you.
[2023-09-29 13:17] VITALS: BP 113/66; PULSE 87; TEMP 97.9
--- NOTE | 2023-09-29 15:02 | P.PN ---
Subjective Progress Note Date: 09/29/23 88-year-old female who was seen by Dr. Terrazas in the emergency department, for difficulty breathing, and elevated temperature. According to the family, the patient was fine yesterday, but today, was noted to have a hard time breathing, had some confusion and mental status changes, had very low saturations, blue lips, and generally would just not well. Also, apparently, she has been coughing quite a bit for the last few days. The patient is seen in the emergency department, in the trauma room. A family member is at the bedside. He gives most of the history. The patient is placed on BiPAP, with settings at 10/5 and 50%. The patient did receive a liter of saline, and was on a Cardizem drip at 5 mg an hour, but that was discontinued. The patient is a DO NOT RESUSCITATE patient. The patient has a history of atrial fibrillation, COPD, diabetes, hyperlipidemia, hypertension, dementia, and osteoarthritis. The patient has had a previous transcatheter aortic valve replacement as well. Recently, the patient has been following at the wound clinic for nonhealing leg ulcerations and wounds. Current laboratory data includes a white count of 17.8, hemoglobin 10.3, hematocrit 32.8, and a platelet count of 145,000. Sodium 139, potassium 4.3, chlorides 106, CO2 20, anion gap 13, BUN 56, and creatinine 1.31. Lactic acid initially was 4.2. Repeat was 1.8. Glucose was 171. Troponin was 0.155 and 1.430. N-terminal proBNP is 2020. The patient tested negative for influenza, AMB, RSV, coronavirus. Urine had trace protein, trace ketones, trace leukocyte esterase, but no bacteria. EKG shows atrial fibrillation with a rapid ventricular response, 155 bpm. Chest x-ray shows diffuse haziness, likely consistent with fluid overload/CHF. Progress note dated September 23, 2023. 88-year-old female well-known to me. The patient was seen in the emergency department yesterday, with respiratory failure. She was brought in because of low saturations, fever, and, had a chest x-ray that was consistent with fluid overload/CHF. The patient was also having episodes of atrial fibrillation with RVR. She is seen today in the ICU, room 267. She had arterial blood gases which show pO2 of 200, pCO2 of 45, pH is 7.32. The patient was on BiPAP, with settings of 10/5 and 35%. Currently she is on 3 L of oxygen. The patient continues on heparin via weight-based protocol, norepinephrine at 2.5 mcg/min, and saline at 75 cc an hour, which will be converted to keep vein open IV. She also continues on Zosyn and vancomycin. She will get 1 dose of Lasix today, 40 mg IV push. Current labs include a white count 19.6, hemoglobin 9.8, hematocrit 32.2, and a platelet count of 113,000. PTT is 38.5. Sodium 142, potassium 4.1, chlorides 109, CO2 22, anion gap 11, BUN 65, and creatinine 1.98. Glucose is 257. AST is 108. ALT is 72. Procalcitonin level is elevated at 0.54. Troponin was 2.910. N-terminal proBNP was 2020. Progress note dated September 24, 2023. 88-year-old female, seen in room 267. She is laying in bed, on room air. She is getting saline at 10 cc an hour, and norepinephrine at 1 mcg/min. She continues on IV heparin. She did not use the BiPAP device last night, and I sewell ve asked the nurses to discontinue the BiPAP from her room. Current laboratory data includes a white count 18.4, hemoglobin 9.1, hematocrit 29.3, platelet count 128,000. PTT is 61.2. Sodium 136, potassium 3.6, chlorides 108, CO2 17, anion gap 11, BUN 75, and creatinine 2.01. Glucose is 299. Procalcitonin level is 50.6. Thus far cultures are negative. No chest x-ray today. The patient continues on Ancef. Progress note dated September 25, 2023. 88-year-old female seen in room 267. The patient is currently on room air. Norepinephrine has been weaned off. She continues on amiodarone at 0.5 mg/min. Blood cultures were positive for micrococcus. Laboratory data includes a white count of 17.7, hemoglobin 9, hematocrit 28.3, and platelet count of 127,000. Sodium 134, potassium 3.7, chlorides 106, CO2 20, BUN 72, creatinine 2.05. Glucose is 210. Calcium is 8.4. Chest x-ray shows cardiomegaly, with pulmonary venous congestion. Clinically, the patient is doing much better. She had an uneventful night according to the nurses. Progress note dated September 26, 2023. 88-year-old female seen today in room 267. Currently, the patient is doing much better. She is currently on room air. She is getting saline at 10 cc an hour. She was stable overnight, and likely can be transferred out to the cardiac floor. Today's labs include a white count 10.2, hemoglobin 9, hematocrit 27.5, and a platelet count of 100,000. Sodium 134, potassium 4.6, chlorides 105, CO2 23, BUN 72, creatinine 1.80. Glucose 103. Calcium 8.7. Blood cultures were positive for micrococcus species. No chest x-ray today. The patient continues on Unasyn. Progress note dated September 27, 2023. 88-year-old female seen today in room 360. The patient is currently on room air. She is receiving Unasyn. She is getting saline at 10 cc an hour. Family members are at the bedside. Current laboratory data includes a white count 7.3, hemoglobin 9.7, hematocrit 30.2, and a platelet count of 115,000. Sodium 137, potassium 4.4, chlorides 105, CO2 23, BUN 76, and creatinine 1.88. Glucose is 159. Calcium is 9.0. Blood cultures from September 21 were positive for micrococcus species. On today's evaluation of 09/28/2023, the patient is doing well. She is awake and alert and communicating. She denies having any specific complaints. No chest pain. She is completing her course of antibiotics and the patient is currently on IV Unasyn. She remains on anticoagulation with Eliquis 2.5 mg twice a day. She is on Lasix 20 mg p.o. daily. She is also on Levemir insulin 10 units along with NovoLog 7 units with meals. IV fluids are at KVO. No significant respite distress at this point in time. Her atrial fibrillation is under adequate control and the patient is currently on a combination of metoprolol 25 mg 3 times daily and amiodarone 200 mg p.o. twice daily. Blood work from today shows a WBC count of 10 with a hemoglobin 9.1 and a platelet count of 120, BUN is at 77 with a creatinine of 2.01 and the creatinine has been essentially stable with a sodium level of 135. Procalcitonin level has dropped significantly is currently down to 6.9. On today's evaluation of 09/29/2023, seen the patient for a follow-up. Patient is essentially stable at this point in time. No significant respiratory issues the patient remains on room air oxygen with a pulse ox of 99%. Limited congested cough no significant sputum production. Remains on antibiotics and the patient has been switched to oral Augmentin. Creatinine is stable at 1.8 with a sodium level of 137. The risk is at 10.8 with a hemoglobin of 8.4. No other significant events overnight. The plan is to transfer this patient to [facility]. Objective - Vital Signs Vital signs: Vital Signs Temp 98.0 F 09/29/23 07:53 Pulse 90 09/29/23 10:08 Resp 18 09/29/23 07:53 BP 128/74 09/29/23 07:53 Pulse Ox 99 09/29/23 07:53 FiO2 35 09/23/23 04:41 Intake & Output 09/28/23 09/29/23 09/29/23 18:59 06:59 18:59 Intake Total 404 10 Output Total 400 Balance 404 -400 10 Weight 95.5 kg Intake: IV 50 10 Invasive Line 4 30 10 Invasive Line 5 20 Oral 354 Output: Urine 400 Other: Voiding Method Bedside Commode Bedside Commode Toilet # Voids 1 2 - Exam Patient much more awake and responsive today. Currently just on room air. Calm and comfortable. HEENT examination is grossly unremarkable. Neck supple. Full range of motion. No adenopathy thyromegaly or neck vein distention. Cardiovascular examination reveals an irregular rhythm and rate. S1-S2 normal. No S3 or S4. No discernible murmur noted. Sounds distant. Lungs reveal scattered rhonchi. No wheezes. Breath sounds equal. Abdomen soft without bowel sounds. No masses. Extremities are intact. Chronic venous stasis changes noted. No cyanosis. No clubbing. Skin reveals chronic changes. Neurologic examination is brief but nonfocal. The patient appears to be back to baseline. - Labs CBC & Chem 7: 09/29/23 08:40 09/29/23 08:40 Labs: Abnormal Lab Results - Last 24 Hours (Table) 04/09/28/23 09/28/23 Range/Units 12:32 12:32 16:31 WBC (3.8-10.6) k/uL RBC 3.20 L (3.80-5.40) m/uL Hgb 9.1 L (11.4-16.0) gm/dL Hct 29.0 L (34.0-46.0) % RDW 16.4 H (11.5-15.5) % Plt Count 120 L (150-450) k/uL Sodium 135 L (137-145) mmol/L BUN 77 H (7-17) mg/dL Creatinine 2.01 H (0.52-1.04) mg/dL Glucose 154 H (74-99) mg/dL POC Glucose (mg/dL) 162 H (70-110) mg/dL Calcium (8.4-10.2) mg/dL 09/28/23 09/29/23 09/29/23 Range/Units 20:06 08:40 08:40 WBC 10.8 H (3.8-10.6) k/uL RBC 2.80 L (3.80-5.40) m/uL Hgb 8.4 L (11.4-16.0) gm/dL Hct 25.2 L (34.0-46.0) % RDW 16.3 H (11.5-15.5) % Plt Count 128 L (150-450) k/uL Sodium (137-145) mmol/L BUN 74 H (7-17) mg/dL Creatinine 1.81 H (0.52-1.04) mg/dL Glucose 44 L* (74-99) mg/dL POC Glucose (mg/dL) 155 H (70-110) mg/dL Calcium 8.3 L (8.4-10.2) mg/dL 09/29/23 09/29/23 Range/Units 09:57 11:23 WBC (3.8-10.6) k/uL RBC (3.80-5.40) m/uL Hgb (11.4-16.0) gm/dL Hct (34.0-46.0) % RDW (11.5-15.5) % Plt Count (150-450) k/uL Sodium (137-145) mmol/L BUN (7-17) mg/dL Creatinine (0.52-1.04) mg/dL Glucose (74-99) mg/dL POC Glucose (mg/dL) 61 L 140 H (70-110) mg/dL Calcium (8.4-10.2) mg/dL Assessment and Plan Plan: Acute hypoxemic respiratory failure, possibly multifactorial, likely related to atrial fibrillation, fluid overload, and or pneumonia. The patient is currently on room air oxygen. No significant signs of respiratory distress at this point in time. The patient oxygen. Sepsis with bacteremia, secondary to micrococcus species. the procalcitonin level has dropped significantly and currently down to 6 and the patient continues to be on IV Unasyn Atrial fibrillation with RVR. The rate is controlled at this point in time and the patient is on a combination with Toprol 25 mg 3 times daily, amiodarone 5 mg p.o. twice daily and anticoagulation with Eliquis Cough and fever, rule out pneumonia, improved Mild nonanion gap metabolic acidosis, improved Chronic stage stage III kidney disease History of hyperlipidemia. Diabetes mellitus. Prior history of transcatheter aortic valve replacement. History of dementia. History of COPD. History of hyperlipidemia. History of hypertension. Chronic lower extremity wounds.. Plan: Clinically stable Patient is currently on room air oxygen Hemodynamically stable and the patient is on no pressors Remains in atrial fibrillation at the rate is controlled and the patient is currently on a combination of metoprolol and amiodarone and anticoagulation with Eliquis The patient will be switched to oral Augmentin. Procalcitonin level is dropped No signs of any active septicemia at this point in time DNR/DNI CODE STATUS Possible discharge today.
--- NOTE | 2023-09-29 15:12 | P.DS ---
Providers Date of admission: 09/22/23 15:08 Expected date of discharge: 09/29/23 Attending physician: Elis Schaefer MD Consults: 09/22/23 15:56 Consult Physician Routine Consulting Provider: Trung Rosenbaum Consult Reason/Comments: afib rvr Do you want consulting provider notified?: Yes Consult Physician Stat Consulting Provider: George Quesada Consult Reason/Comments: shock Do you want consulting provider notified?: Yes Consult Physician Urgent Consulting Provider: Ebony Ornelas Consult Reason/Comments: sepsis Do you want consulting provider notified?: Yes 09/28/23 17:26 Consult Physician Routine Consulting Provider: Sharmila Collins Consult Reason/Comments: MAE Do you want consulting provider notified?: Yes Primary care physician: George Quesada Hospital Course: Discharge Diagnosis: Newly discovered systolic congestive heart failure with ejection fraction 35 to 40% Non-ST segment elevated myocardial infarction likely multifactorial Atrial fibrillation with rapid ventricular response Acute hypoxic respiratory failure due to above Acute kidney injury on chronic kidney disease stage IIIa Diabetes mellitus type 2 with hyperglycemia Chronic right lower extremity wound Anemia and thrombocytopenia Toxic metabolic encephalopathy, resolved Bacteremia, contaminant Septic shock, resolved Hospital Course: Patient is a 88-year-old female diabetes mellitus type 2 with peripheral neuropathy, chronic A-fib on Eliquis, COPD, hypertension, dyslipidemia, and chronic right lower extremity nonhealing ulcer who presented to the emergency department due to confusion, fever and hypoxia. In the emergency department she underwent extensive evaluation. Initial vital signs showed a T temperature of 100.3 and hypoxia with an O2 sat of 93% on 6 L. Initial laboratory analysis was remarkable for WBC 17.8, Hg 10.3, Hct 32.8, Plt 145, bicarb 20, BUN 56, Cr 1.31, glu 171, T. bili 1.7, AST 71, ALT 38, alk phos 186. Lactic acid 4.2. Troponin 0.155, 1.43. EKG done in the emergency department demonstrated atrial fibrillation with rapid ventricular response. Influenza A/B/RSV/COVID 19 testing was negative. Chest x-ray demonstrated pulmonary vascular congestion with trace pleural effusions. She was given 2 L of normal saline was started on IV Cardizem and her blood pressure became labile down to 66/33. She was also started on hydrocortisone 100 mg IV push x 1. She was then started on BiPAP. She was admitted to the ICU due to A-fib with RVR, acute hypoxic respiratory failure, and possible septic shock. She was initiated on Levophed, Vanco, and Zosyn. Blood and urine cultures were collected. Cardiology was consulted and she underwent echocardiogram which showed an ejection fraction of 35 to 40%. Her troponins elevated with a max at 2.91. Cardiology felt that she was a poor candidate for cardiac catheterization and recommended continuing heparin drip for 48 hours. Once this was completed she was transitioned back to Eliquis. She was started on Lasix on 09/22 and was able to be weaned off of BiPAP. She again went into A-fib with RVR on 09/24 requiring initiation of amiodarone drip which was subsequently transition to oral. She did have 2 out of 2 blood cultures come back +1 for micrococcus and 1 where the species would not continue to grow for speciation. Infectious disease was subsequently consulted. Vanco and Zosyn were discontinued and the patient was switched to cefazolin and then ultimately to Unasyn. She was able to come off of Levophed by 09/24. It was felt that her blood cultures were likely due to contamination. Urine culture was negative. Sputum cultures were negative. Procalcitonin initially was 0.54 and maxed at 50 now down to 6.9. She was also followed by pulmonary during her hospital stay. She conitnued to do well. She was cleared by nephrology. She did have one episode of hypoglycemia due to insulin and this was discharonitnued. Follow-up: New medications include Farxiga, and Amiodarone. Her metoprool was changed to 25 mg TID. She ideally should be on an ARB and aldactone but will need to follow with nephrology first to ensure stable renal function. Her Lasix was increased to 40 mg to take BID for 3 days and then daily. She will have a repeat BMP in 3 days with results to Dr. Collins. She will follow with Dr. Quesada and Dr. Crouch. She will complete another 7 days of antibiotics, augmentin. She also will continue to follow with wound care. Patient seen and examined at bedside. Doing well. No complaints was to go home. She did not feel her sugar drop and states that she feels great. Vital signs reviewed and stable. General: Nontoxic, no distress, appears at stated age Cardiovascular: S1S2 reg, no murmur, positive posterior tibial pulse bilateral, Lungs: Course breath sounds bilateral, no rhonchi, no rales, no accessory muscle use Abdominal: Soft, nontender to palpation, no guarding, no appreciable organomegaly Ext: No gross muscle atrophy, no edema b/l lower extremities, no contractures, dressing in place over right wound Neuro: CN II-XI grossly intact, no focal neuro deficits Psych: Alert, oriented, appropriate affect A total of 43 minutes of time were spent preparing this complex discharge summary. Patient was discharged on 09/29/23. This dictation was prepared using [employer]kip[employer] voice recognition software. Maik logan every attempt is made to correct errors during dictation some may still exist. Plan - Discharge Summary Discharge Rx Participant: No New Discharge Prescriptions: New Amiodarone [Cordarone] 200 mg PO BID #60 tab Dapagliflozin Propanediol [Farxiga] 10 mg PO DAILY #30 tablet Furosemide [Lasix] 40 mg PO DAILY #33 tablet Metoprolol Tartrate [Lopressor] 25 mg PO TID #90 tab Amoxic-Pot Clav 500-125 mg [Augmentin 500-125 mg] 1 tab PO Q12HR #14 tab Continue Latanoprost/Pf [Latanoprost 0.005% Eye Drop] 1 drop RIGHT EYE HS Atorvastatin [Lipitor] 40 mg PO Q48H Apixaban [Eliquis] 2.5 mg PO BID Donepezil [Aricept] 10 mg PO DAILY Zinc Gluconate [Zinc] 50 mg PO DAILY Memantine [Namenda] 10 mg PO BID traMADol HCL 100 mg PO BID Ferrous Sulfate [Iron (65 MG Elemental)] 325 mg PO HS Changed Gabapentin 300 mg PO BID #9 cap Discontinued metFORMIN HCL [metFORMIN HCL ER] 750 mg PO BID-W/MEALS Calcium 1000mg 1 tab PO DAILY Furosemide [Lasix] 20 mg PO DAILY #0 Zolpidem [Ambien] 5 mg PO HS PRN PRN Reason: Insomnia Co Q-10 100mg 1 tab PO DAILY Metoprolol Tartrate [Lopressor] 25 mg PO DAILY Fosinopril/Hydrochlorothiazide [Monopril HCT 10-12.5 mg Tab] 1 tab PO DAILY No Action Multivitamins, Thera [Multivitamin (formulary)] 1 tab PO DAILY Cholecalciferol [Vitamin D3 (25 Mcg = 1000 Iu)] 25 mcg PO DAILY Ascorbic Acid [Vitamin C] 1,000 mg PO DAILY Discharge Medication List Apixaban [Eliquis] 2.5 mg PO BID 10/10/18 [History] Atorvastatin [Lipitor] 40 mg PO Q48H 10/10/18 [History] Latanoprost/Pf [Latanoprost 0.005% Eye Drop] 1 drop RIGHT EYE HS 10/10/18 [History] Multivitamins, Thera [Multivitamin (formulary)] 1 tab PO DAILY 10/10/18 [History] Donepezil [Aricept] 10 mg PO DAILY 12/27/20 [History] Zinc Gluconate [Zinc] 50 mg PO DAILY 01/23/23 [History] Ascorbic Acid [Vitamin C] 1,000 mg PO DAILY 09/22/23 [History] Cholecalciferol [Vitamin D3 (25 Mcg = 1000 Iu)] 25 mcg PO DAILY 09/22/23 [History] Ferrous Sulfate [Iron (65 MG Elemental)] 325 mg PO HS 09/22/23 [History] Memantine [Namenda] 10 mg PO BID 09/22/23 [History] traMADol HCL 100 mg PO BID 09/22/23 [History] Dapagliflozin Propanediol [Farxiga] 10 mg PO DAILY #30 tablet 09/28/23 [Rx] Amiodarone [Cordarone] 200 mg PO BID #60 tab 09/29/23 [Rx] Amoxic-Pot Clav 500-125 mg [Augmentin 500-125 mg] 1 tab PO Q12HR #14 tab 09/29/23 [Rx] Furosemide [Lasix] 40 mg PO DAILY #33 tablet 09/29/23 [Rx] Gabapentin 300 mg PO BID #9 cap 09/29/23 [Rx] Metoprolol Tartrate [Lopressor] 25 mg PO TID #90 tab 09/29/23 [Rx] Follow up Appointment(s)/Referral(s): Sharmila Collins MD [STAFF PHYSICIAN] - 1 Week (office will to schedule appointment ) [facility], [NON-STAFF] - As Needed ([facility] will call you to schedule your in home nursing, physical therapy, and occupational therapy visits. 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 Discharge Disposition: HOME WITH HOME HEALTH SERVICES
== END 2023-09-29 14:49 | disposition home health service (06) | DRG 871 ==
LOC: EC 12:21 → 2SICU 15:08 → 3SCARD 09-26 14:37
PROVIDERS: ADMIT Family Medicine; ATTEND Family Medicine
PROC: 5A09357 Assistance with Respiratory Ventilation, Less than 24 Consecutive Hours, Continuous Positive Airway Pressure (ICD-10-PCS; principal; 2023-09-22)
PROC: 3E043XZ Introduction of Vasopressor into Central Vein, Percutaneous Approach (ICD-10-PCS; 2023-09-22)
DX: A40.1 Sepsis due to streptococcus, group B (principal); G92.8 Other toxic encephalopathy; G92.9 Unspecified toxic encephalopathy; J18.9 Pneumonia, unspecified organism; R65.21 Severe sepsis with septic shock; J96.01 Acute respiratory failure with hypoxia; N17.0 Acute kidney failure with tubular necrosis; G93.41 Metabolic encephalopathy; I21.A1 Myocardial infarction type 2; I50.23 Acute on chronic systolic (congestive) heart failure; I26.99 Other pulmonary embolism without acute cor pulmonale; I13.0 Hypertensive heart and chronic kidney disease with heart failure and stage 1 through stage 4 chronic kidney disease, or unspecified chronic kidney disease; I48.21 Permanent atrial fibrillation; I87.331 Chronic venous hypertension (idiopathic) with ulcer and inflammation of right lower extremity; J44.0 Chronic obstructive pulmonary disease with (acute) lower respiratory infection; J44.1 Chronic obstructive pulmonary disease with (acute) exacerbation; L97.812 Non-pressure chronic ulcer of other part of right lower leg with fat layer exposed; I42.8 Other cardiomyopathies; Z66 Do not resuscitate; E11.649 Type 2 diabetes mellitus with hypoglycemia without coma; N18.31 Chronic kidney disease, stage 3a; D63.1 Anemia in chronic kidney disease; E11.42 Type 2 diabetes mellitus with diabetic polyneuropathy; D69.6 Thrombocytopenia, unspecified; I08.2 Rheumatic disorders of both aortic and tricuspid valves; F03.90 Unspecified dementia, unspecified severity, without behavioral disturbance, psychotic disturbance, mood disturbance, and anxiety; E11.22 Type 2 diabetes mellitus with diabetic chronic kidney disease; Z95.3 Presence of xenogenic heart valve; E11.65 Type 2 diabetes mellitus with hyperglycemia; B95.61 Methicillin susceptible Staphylococcus aureus infection as the cause of diseases classified elsewhere; T38.3X5A Adverse effect of insulin and oral hypoglycemic [antidiabetic] drugs, initial encounter; T38.0X5A Adverse effect of glucocorticoids and synthetic analogues, initial encounter; M19.90 Unspecified osteoarthritis, unspecified site; F17.200 Nicotine dependence, unspecified, uncomplicated; E78.5 Hyperlipidemia, unspecified; I25.10 Atherosclerotic heart disease of native coronary artery without angina pectoris; I44.7 Left bundle-branch block, unspecified; Z71.3 Dietary counseling and surveillance; Z51.5 Encounter for palliative care; Z79.4 Long term (current) use of insulin; Z79.01 Long term (current) use of anticoagulants; Z79.84 Long term (current) use of oral hypoglycemic drugs; Z79.899 Other long term (current) drug therapy; Z11.52 Encounter for screening for COVID-19
CPT/HCPCS: 36415; 36600; 51702; 70450; 71045; 76705; 76770; 80048; 80053; 81001; 82805; 83036; 83605; 83735; 83880; 84132; 84145; 84484; 85025; 85027; 85610; 85730; 86140; 87040; 87070; 87086; 87205; 87636; 93005; 93306; 94640; 94660; 96365; 96366; 96367; 96368; 96375; 99291

== ENCOUNTER 2023-10-16 15:56 | Emergency (ER) | payer MEDICARE ==
--- NOTE | 2023-10-16 16:58 | ED ---
General Adult HPI <Leland Lange - Last Filed: 10/16/23 17:00> - General Source: patient, RN notes reviewed, old records reviewed <Matthew Aden - Last Filed: 10/16/23 22:18> - General Stated complaint: R leg swelling Time Seen by Provider: 10/16/23 16:50 - History of Present Illness Initial comments: Quick note 88-year-old female with past medical history significant for diabetes, A-fib on Eliquis, and chronic wound of right lower extremity presenting to the ED with a chief complaint of right lower extremity swelling. Patient has a chronic wound to her right lower leg. Sees wound care for this. Per family, reportedly is improving in nature. However, over the last few days has noticed increasing redness and swelling of her right leg especially at the knee. No fever or chills. (Leland Lange) Originally seen as a quick note. Presents with family for concern for right lower extremity wound. Slightly more edema on the right leg today than typically. He has a history of chronic edema of the right lower extremity. Patient is already on Eliquis for atrial fibrillation. Has chronic wound and is seeing wound care. They called wound care who recommended they come here for DVT ultrasound despite patient being on Eliquis already. Wound appears well, no current antibiotics. No fevers, chills, erythema, concern for infection at this time. Presents with family members. (Matthew Aden) - Related Data Home Medications Medication Instructions Recorded Confirmed Apixaban [Eliquis] 2.5 mg PO BID 10/10/18 09/22/23 Atorvastatin [Lipitor] 40 mg PO Q48H 10/10/18 09/22/23 Latanoprost/Pf [Latanoprost 0.005% 1 drop RIGHT EYE HS 10/10/18 09/22/23 Eye Drop] Multivitamins, Thera [Multivitamin 1 tab PO DAILY 10/10/18 09/22/23 (formulary)] Donepezil [Aricept] 10 mg PO DAILY 12/27/20 09/22/23 Zinc Gluconate [Zinc] 50 mg PO DAILY 01/23/23 09/22/23 Ascorbic Acid [Vitamin C] 1,000 mg PO DAILY 09/22/23 09/22/23 Cholecalciferol [Vitamin D3 (25 25 mcg PO DAILY 09/22/23 09/22/23 Mcg = 1000 Iu)] Ferrous Sulfate [Iron (65 MG 325 mg PO HS 09/22/23 09/22/23 Elemental)] Memantine [Namenda] 10 mg PO BID 09/22/23 09/22/23 traMADol HCL 100 mg PO BID 09/22/23 09/22/23 Previous Rx's Medication Instructions Recorded Dapagliflozin Propanediol [Farxiga] 10 mg PO DAILY #30 tablet 09/28/23 Amiodarone [Cordarone] 200 mg PO BID #60 tab 09/29/23 Amoxic-Pot Clav 500-125 mg 1 tab PO Q12HR #14 tab 09/29/23 [Augmentin 500-125 mg] Furosemide [Lasix] 40 mg PO DAILY #33 tablet 09/29/23 Gabapentin 300 mg PO BID #9 cap 09/29/23 Metoprolol Tartrate [Lopressor] 25 mg PO TID #90 tab 09/29/23 Allergies Allergy/AdvReac Type Severity Reaction Status Date / Time Paper Tape Allergy Redness/Itc Uncoded 10/16/23 17:15 erick Review of Systems ROS Other: All systems not noted in ROS Statement are negative. <Leland Lange - Last Filed: 10/16/23 17:00> <Matthew Aden - Last Filed: 10/16/23 22:18> ROS Statement: Those systems with pertinent positive or pertinent negative responses have been documented in the HPI. Review of Systems: CONST: Denies fever EYES: Denies blurry vision ENT: Denies nasal congestion C/V: Denies Chest pain RESP: Denies shortness of breath GI: Denies abdominal pain : Denies dysuria SKIN: Endorses chronic right lower extremity wound MSK: Endorses right lower extremity edema NEURO: Denies headache (Matthew Aden) Past Medical History Past Medical History: Atrial Fibrillation, COPD, Diabetes Mellitus, Hyperlipidemia, Hypertension, Memory Impairment, Osteoarthritis (OA) Additional Past Medical History / Comment(s): possible Hiatal Hernia, left neck mass History of Any Multi-Drug Resistant Organisms: None Reported Past Surgical History: Cardiac Valve Replacement, Cholecystectomy, Orthopedic Surgery Additional Past Surgical History / Comment(s): Right knee surgery X5, Hammer Toe surgery, left knee arthroscopy Past Anesthesia/Blood Transfusion Reactions: Previous Problems w/ Anesthesia Additional Past Anesthesia/Blood Transfusion Reaction / Comment(s): Woke up during last knee surgery. Smoking Status: Current some day smoker - Past Family History Father Family Medical History: Cancer Additional Family Medical History / Comment(s): Prostate Cancer. Brother(s) Additional Family Medical History / Comment(s): Blood clot from surgery. <Leland Lange - Last Filed: 10/16/23 17:00> General Exam <Leland Lange - Last Filed: 10/16/23 17:00> <Matthew Aden - Last Filed: 10/16/23 22:18> - General Exam Comments Initial Comments: Visual Physical Exam Vital signs reviewed General: Well-appearing, nontoxic, no acute distress. Head: Normocephalic, atraumatic Eyes: PERRLA, EOMI ENT: Airway patent Chest: Nonlabored breathing Skin: No visual rash, normal skin tone Neuro: Alert and oriented 3 (Leland Lange) General: Appears in no acute distress. HEAD: Normal with no signs of head trauma. EYES: PERRLA, EOMI ENT: Hearing grossly intact RESPIRATORY: Clear breath sounds bilaterally. No wheezes, rales, or rhonchi. C/V: Regular rate and rhythm. S1 and S2 auscultated, with worsening edema in the right leg compared to the left which is somewhat chronic for the patient. Peripheral pulses 2+ and intact throughout ABD: Abd is soft, nontender, nondistended EXT: Normal range of motion, no obvious deformity SKIN: Patient has chronic wound over the anterior right hernandez. Appears uncomplicated. No obvious purulent drainage. Clear margins. No erythema. Worse edema in the right leg which intermittently is chronic for the patient. NEURO: Alert and oriented x 4. (Matthew Aden) Course Vital Signs 10/16/23 17:13 Temperature 98.7 F Pulse Rate 58 L Respiratory 18 Rate Blood Pressure 107/63 O2 Sat by Pulse 96 Oximetry Medical Decision Making <Leland Lange - Last Filed: 10/16/23 17:00> - Lab Data Result diagrams: 10/16/23 17:54 10/16/23 17:54 <Matthew Aden - Last Filed: 10/16/23 22:18> - Medical Decision Making Quicknote portion performed. Signed Leland Lange PA-C (Leland Lange) Was pt. sent in by a medical professional or institution ([facility] [facility], ACTUARIAL TECHNICIAN, urgent care, hospital, or intermediate...) When possible be specific @ -Sent by wound care over concern for possible DVT in the right lower extremity despite being on Eliquis. Did you speak to anyone other than the patient for history (EMS, parent, family, police, friend...)? What history was obtained from this source @ -No Did you review nursing and triage notes (agree or disagree)? Why? @ -I reviewed and agree with nursing and triage notes Were old charts reviewed (outside hosp., previous admission, EMS record, old EKG, old radiological studies, urgent care reports/EKG's, intermediate records)? Report findings @ -No old charts were reviewed Differential Diagnosis (chest pain, altered mental status, abdominal pain women, abdominal pain men, vaginal bleeding, weakness, fever, dyspnea, syncope, headache, dizziness, GI bleed, back pain, seizure, CVA, palpatations, mental health, musculoskeletal)? @ -DVT, chronic edema, cellulitis, chronic wound. This list is not all inclusive. EKG interpreted by me (3pts min.). @ -None done X-rays interpreted by me (1pt min.). @ -None done CT interpreted by me (1pt min.). @ -None done U/S interpreted by me (1pt. min.). @ -Ultrasound of the right lower extremity revealed no evidence of DVT. What testing was considered but not performed or refused? (CT, X-rays, U/S, labs)? Why? @ -None What meds were considered but not given or refused? Why? @ -None Did you discuss the management of the patient with other professionals (professionals i.e. [facility] [facility], ACTUARIAL TECHNICIAN, lab, RT, psych nurse, social services analyst, joint cleaning machine operator, teacher, surface to air weapons officer, manager of case)? Give summary @ -No Was smoking cessation discussed for >3mins.? @ -No Was critical care preformed (if so, how long)? @ -No Were there social determinants of health that impacted care today? How? (Homelessness, low income, unemployed, alcoholism, drug addiction, transportation, low edu. Level, literacy, decrease access to med. care, custodial, rehab)? @ -No Was there de-escalation of care discussed even if they declined (Discuss DNR or withdrawal of care, Hospice)? DNR status @ -No What co-morbidities impacted this encounter? (DM, HTN, Smoking, COPD, CAD, Cancer, CVA, ARF, Chemo, Hep., AIDS, mental health diagnosis, sleep apnea, morbid obesity)? @ -Chronic right lower extremity wound. Patient on Eliquis. Was patient admitted / discharged? Hospital course, mention meds given and route, prescriptions, significant lab abnormalities, going to OR and other pertinent info. @ -Based on the patient's presentation and physical exam, presents emergency department complaining of acute on chronic right lower extremity edema. Has a chronic wound on that leg as well. Wound appears uncomplicated. We will obtain basic labs as well as DVT ultrasound at this time. Vital signs are within acceptable limits. Family and patient were in agreement this plan. Ultrasound negative for DVT. Labs are all within acceptable limits for the patient. CKD present but at baseline. I updated the patient. She will be discharged home at this time. It is likely her chronic edema. They expressed understanding. Recommend follow-up with wound care. No indication for initiation of antibiotics at this time. They were in agreement this plan. I instructed the patient to follow up with their PCP in the next 1-3 days. I explained that the patient should return to the emergency department if they experience any worsening symptoms. Strict return precautions were discussed with the patient. The patient expressed understanding of these instructions. I answered all questions that the patient had. The patient was discharged home in good condition with their prescriptions and follow up information. Undiagnosed new problem with uncertain prognosis? @ -No Drug Therapy requiring intensive monitoring for toxicity (Heparin, Nitro, In sulin, Cardizem)? @ -No Were any procedures done? @ -No Diagnosis/symptom? @ -Right lower extremity leg edema, chronic ulcer of leg Acute, or Chronic, or Acute on Chronic? @ -Acute chronic Uncomplicated (without systemic symptoms) or Complicated (systemic symptoms)? @ -Uncomplicated Side effects of treatment? @ -No Exacerbation, Progression, or Severe Exacerbation? @ -No Poses a threat to life or bodily function? How? (Chest pain, USA, ID, pneumonia, PE, COPD, DKA, ARF, appy, cholecystitis, CVA, Diverticulitis, Homicidal, Suicidal, threat to staff... and all critical care pts) @ -No (Matthew Aden) - Lab Data Lab Results 10/16/23 10/16/23 10/16/23 Range/Units 17:54 17:54 17:54 WBC 4.0 (3.8-10.6) k/uL RBC 3.34 L (3.80-5.40) m/uL Hgb 10.1 L (11.4-16.0) gm/dL Hct 31.4 L (34.0-46.0) % MCV 94.0 (80.0-100.0) fL MCH 30.3 (25.0-35.0) pg MCHC 32.3 (31.0-37.0) g/dL RDW 18.4 H (11.5-15.5) % Plt Count 94 L (150-450) k/uL MPV 9.0 Neutrophils % 63 % Lymphocytes % 25 % Monocytes % 6 % Eosinophils % 4 % Basophils % 1 % Neutrophils # 2.5 (1.3-7.7) k/uL Lymphocytes # 1.0 (1.0-4.8) k/uL Monocytes # 0.2 (0-1.0) k/uL Eosinophils # 0.2 (0-0.7) k/uL Basophils # 0.0 (0-0.2) k/uL Manual Slide Review Performed Anisocytosis Slight Macrocytosis Slight PT 10.5 (10.0-12.5) sec INR 0.9 (<1.2) APTT 25.2 (22.0-30.0) sec Sodium 135 L (137-145) mmol/L Potassium 3.8 (3.5-5.1) mmol/L Chloride 97 L (98-107) mmol/L Carbon Dioxide 34 H (22-30) mmol/L Anion Gap 4 mmol/L BUN 33 H (7-17) mg/dL Creatinine 1.70 H (0.52-1.04) mg/dL Est GFR (CKD-EPI)AfAm 31 (>60 ml/min/1.73 sqM) Est GFR (CKD-EPI)NonAf 27 (>60 ml/min/1.73 sqM) Glucose 128 H (74-99) mg/dL Calcium 8.7 (8.4-10.2) mg/dL Total Bilirubin 1.0 (0.2-1.3) mg/dL AST 34 (14-36) U/L ALT 23 (4-34) U/L Alkaline Phosphatase 143 H (38-126) U/L Total Protein 6.7 (6.3-8.2) g/dL Albumin 3.7 (3.5-5.0) g/dL Disposition <Leland Lange - Last Filed: 10/16/23 17:00> Is patient prescribed a controlled substance at d/c from ED?: No Time of Disposition: 19:36 <Matthew Aden - Last Filed: 10/16/23 22:18> Clinical Impression: Leg edema, right, Chronic ulcer of leg Disposition: HOME SELF-CARE Condition: Good Referrals: George Quesada DO [Primary Care Provider] - 1-2 days
[2023-10-16 17:43] VITALS: BP 107/63; PULSE 58; RESP 18; TEMP 98.7
[2023-10-16 18:21] LABS: Anisocytosis Slight; Basophils % (A) 1 %; Eosinophils # (A) 0.2 k/uL (0-0.7); Eosinophils % (A) 4 %; HCT 31.4 % (34.0-46.0); HGB 10.1 gm/dL (11.4-16.0); Lymphocytes % (A) 25 %; MCH 30.3 pg (25.0-35.0); MCHC 32.3 g/dL (31.0-37.0); Macrocytosis Slight; Monocytes # (A) 0.2 k/uL (0-1.0); Monocytes % (A) 6 %; Neutrophils # (A) 2.5 k/uL (1.3-7.7); Neutrophils % (A) 63 %; RBC 3.34 m/uL (3.80-5.40); RDW 18.4 % (11.5-15.5)
[2023-10-16 18:31] LABS: INR 0.9 (<1.2); Partial Thromboplastin Time 25.2 sec (22.0-30.0); Prothrombin Time 10.5 sec (10.0-12.5)
[2023-10-16 18:48] LABS: Platelet Count 94 k/uL (150-450)
[2023-10-16 19:14] LABS: ALT 23 U/L (4-34); AST 34 U/L (14-36); African American GFR (CKD) 31 (>60 ml/min/1.73 sqM); Albumin 3.7 g/dL (3.5-5.0); Alkaline Phosphatase 143 U/L (38-126); Anion Gap 4 mmol/L; Blood Urea Nitrogen 33 mg/dL (7-17); Calcium 8.7 mg/dL (8.4-10.2); Carbon Dioxide 34 mmol/L (22-30); Chloride 97 mmol/L (98-107); Glucose 128 mg/dL (74-99); Non-African American GFR(CKD) 27 (>60 ml/min/1.73 sqM); Potassium 3.8 mmol/L (3.5-5.1); Sodium 135 mmol/L (137-145); Total Protein 6.7 g/dL (6.3-8.2)
--- NOTE | 2023-10-16 19:16 | US ---
EXAMINATION TYPE: US venous doppler duplex LE RT DATE OF EXAM: 10/16/2023 5:00 PM COMPARISON: 07/16/2023. CLINICAL INDICATION: Female, 88 years old with history of r/o dvt; Rt lower leg non healing wound SIDE PERFORMED: Right TECHNIQUE: The lower extremity deep venous system is examined utilizing real time linear array sonog coco with graded compression, doppler sonography and color-flow sonography. VESSELS IMAGED: Common Femoral Vein Deep Femoral Vein Greater Saphenous Vein * Femoral Vein Popliteal Vein Small Saphenous Vein * Proximal Calf Veins (* superficial vessels) Right Leg: Negative for DVT edema noted at pop fossa IMPRESSION: Grayscale, color doppler, spectral doppler imaging performed of the deep veins of the lo wer extremities. There is normal flow, compressibility, vascular waveforms.
== END 2023-10-16 20:30 | disposition home or self-care (01) ==
LOC: EC 15:56
DX: L97.919 Non-pressure chronic ulcer of unspecified part of right lower leg with unspecified severity (principal); F17.200 Nicotine dependence, unspecified, uncomplicated; Z91.09 Other allergy status, other than to drugs and biological substances
CPT/HCPCS: 36415; 80053; 85025; 85610; 85730; 99284

== ENCOUNTER → 2023-12-29 | Outpatient (CLI) | payer MEDICARE ==
[2023-12-29 16:00] LABS: HCT 36.8 % (37.2-46.3); HGB 11.7 g/dL (12.0-15.0); MCH 30.6 pg (27.0-32.0); MCHC 31.8 g/dL (32.0-37.0); MCV 96.3 FL (80.0-97.0); Mean Platelet Volume 11.5 FL (9.5-12.2); NRBC Per 100 WBC 0 X 10*3/uL (0.00-0.01); Platelet Count 98 X 10*3/uL (140-440); RBC 3.82 X 10*6/uL (4.10-5.20); RDW 13.9 % (11.5-14.5); WBC 4.54 X 10*3/uL (4.50-10.00)
[2023-12-29 16:38] LABS: NT-Pro-B-Type Natriuretic Pept 715 pg/mL (0-450)
[2023-12-29 16:45] LABS: % Iron Saturation 18.16 (12.00-45.00); ALT 14 U/L (8-44); AST 23 U/L (13-35); Albumin 4.2 g/dL (3.8-4.9); Albumin/Globulin Ratio 1.75 Ratio (1.60-3.17); Alkaline Phosphatase 131 U/L (41-126); BUN/Creat Ratio 28.92 Ratio (12.00-20.00); Blood Urea Nitrogen 37.6 mg/dL (9.0-27.0); Calcium 9.3 mg/dL (8.7-10.3); Carbon Dioxide 27.8 mmol/L (21.6-31.8); Chloride 99 mmol/L (96-109); Globulin 2.4 g/dL (1.6-3.3); Glucose 95 mg/dL (70-110); Iron 65 UG/DL (50-170); Sodium 140 mmol/L (135-145); Total Bilirubin 0.7 mg/dL (0.3-1.2); Total Iron Binding Capacity 358 UG/DL (228-460); Total Protein 6.6 g/dL (6.2-8.2)
[2023-12-29 16:46] LABS: Appearance,Urine Clear (Clear); Bilirubin,Urine Negative (Negative); Blood,Urine Negative (Negative); Color,Urine Yellow (Yellow); Ketones,Urine Negative (Negative); Nitrite,Urine Negative (Negative); Specific Gravity,Urine 1.021 (1.001-1.030)
[2023-12-29 18:28] LABS: Bacteria,Urine None Seen (None Seen)
[2023-12-29 19:42] LABS: Urine Creatinine 81.2 mg/dL (28.0-217.0)
== END | disposition home or self-care (01) ==
LOC: LABWHC1 11:14
PROVIDERS: ATTEND Internal Medicine Interventional Cardiology
DX: I13.0 Hypertensive heart and chronic kidney disease with heart failure and stage 1 through stage 4 chronic kidney disease, or unspecified chronic kidney disease (principal); I50.22 Chronic systolic (congestive) heart failure; E78.2 Mixed hyperlipidemia; N17.9 Acute kidney failure, unspecified; N18.9 Chronic kidney disease, unspecified
CPT/HCPCS: 36415; 80053; 81001; 82043; 82306; 82570; 82728; 83540; 83550; 83735; 83880; 83970; 84100; 85027

== ENCOUNTER 2024-03-21 21:07 | Inpatient (IN) | payer MEDICARE ==
[2024-03-21 21:13] LABS: Glucose,Whole Blood 143 mg/dL (70-110)
--- NOTE | 2024-03-21 21:30 | ED ---
Abdominal Pain HPI - General Chief Complaint: Altered Mental Status Stated Complaint: AMS Time Seen by Provider: 03/21/24 21:16 Source: EMS Mode of arrival: EMS - History of Present Illness Initial Comments: Patient is an 89-year-old woman who was brought here by EMS to have evaluation for altered mental status. She reportedly had eaten dinner with her sister and then was less active and seemed. I reviewed the patient, she is complaining of diffuse abdominal pain and a cramp in her left leg. She is able to answer most questions though she is not really volunteering much information. MD Complaint: abdominal pain -: hour(s) Location: diffuse Severity: severe Consistency: constant Improves With: nothing Worsens With: nothing Associated Symptoms: nausea - Related Data Home Medications Medication Instructions Recorded Confirmed Apixaban [Eliquis] 2.5 mg PO BID 10/10/18 09/22/23 Atorvastatin [Lipitor] 40 mg PO Q48H 10/10/18 09/22/23 Latanoprost/Pf [Latanoprost 0.005% 1 drop RIGHT EYE HS 10/10/18 09/22/23 Eye Drop] Multivitamins, Thera [Multivitamin 1 tab PO DAILY 10/10/18 09/22/23 (formulary)] Donepezil [Aricept] 10 mg PO DAILY 12/27/20 09/22/23 Zinc Gluconate [Zinc] 50 mg PO DAILY 01/23/23 09/22/23 Ascorbic Acid [Vitamin C] 1,000 mg PO DAILY 09/22/23 09/22/23 Cholecalciferol [Vitamin D3 (25 25 mcg PO DAILY 09/22/23 09/22/23 Mcg = 1000 Iu)] Ferrous Sulfate [Iron (65 MG 325 mg PO HS 09/22/23 09/22/23 Elemental)] Memantine [Namenda] 10 mg PO BID 09/22/23 09/22/23 traMADol HCL 100 mg PO BID 09/22/23 09/22/23 Previous Rx's Medication Instructions Recorded Dapagliflozin Propanediol [Farxiga] 10 mg PO DAILY #30 tablet 09/28/23 Amiodarone [Cordarone] 200 mg PO BID #60 tab 09/29/23 Amoxic-Pot Clav 500-125 mg 1 tab PO Q12HR #14 tab 09/29/23 [Augmentin 500-125 mg] Furosemide [Lasix] 40 mg PO DAILY #33 tablet 09/29/23 Gabapentin 300 mg PO BID #9 cap 09/29/23 Metoprolol Tartrate [Lopressor] 25 mg PO TID #90 tab 09/29/23 Allergies Allergy/AdvReac Type Severity Reaction Status Date / Time Paper Tape Allergy Redness/Itc Uncoded 03/21/24 21:19 erick Review of Systems ROS Statement: Those systems with pertinent positive or pertinent negative responses have been documented in the HPI. ROS Other: All systems not noted in ROS Statement are negative. Limitations: ROS unobtainable due to patients medical condition Constitutional: Reports: weakness Respiratory: Denies: cough, dyspnea Cardiovascular: Denies: chest pain, palpitations, syncope Gastrointestinal: Reports: abdominal pain, nausea. Denies: vomiting, diarrhea, melena, hematochezia Genitourinary: Denies: dysuria, hematuria Musculoskeletal: Denies: back pain Skin: Denies: rash Neurological: Denies: headache Past Medical History Past Medical History: Atrial Fibrillation, COPD, Diabetes Mellitus, Hyperlip idemia, Hypertension, Memory Impairment, Osteoarthritis (OA) Additional Past Medical History / Comment(s): possible Hiatal Hernia, left neck mass History of Any Multi-Drug Resistant Organisms: None Reported Past Surgical History: Cardiac Valve Replacement, Cholecystectomy, Orthopedic Surgery Additional Past Surgical History / Comment(s): Right knee surgery X5, Hammer Toe surgery, left knee arthroscopy Past Anesthesia/Blood Transfusion Reactions: Previous Problems w/ Anesthesia Additional Past Anesthesia/Blood Transfusion Reaction / Comment(s): Woke up during last knee surgery. Past Psychological History: No Psychological Hx Reported Smoking Status: Current some day smoker - Past Family History Father Family Medical History: Cancer Additional Family Medical History / Comment(s): Prostate Cancer. Brother(s) Additional Family Medical History / Comment(s): Blood clot from surgery. General Exam General appearance: alert Head exam: Present: atraumatic, normocephalic Eye exam: Present: normal appearance, PERRL, EOMI. Absent: scleral icterus, conjunctival injection ENT exam: Present: mucous membranes dry Neck exam: Present: normal inspection, full ROM. Absent: tenderness, meningismus Respiratory exam: Present: normal lung sounds bilaterally, respiratory distress (Tachypnea). Absent: wheezes, rales, rhonchi, stridor, accessory muscle use Cardiovascular Exam: Present: tachycardia, irregular rhythm, systolic murmur. Absent: diastolic murmur, rubs, gallop GI/Abdominal exam: Present: soft, tenderness. Absent: distended, guarding, rebound, rigid, mass, pulsatile mass, hernia Extremities exam: Present: normal inspection, normal capillary refill. Absent: pedal edema, calf tenderness Back exam: Present: normal inspection. Absent: CVA tenderness (R), CVA tenderness (L) Neurological exam: Present: alert Skin exam: Present: warm, dry, intact, normal color. Absent: rash Course Vital Signs 03/21/24 21:11 Temperature 98.9 F Pulse Rate 113 H Respiratory 22 Rate Blood Pressure 139/89 O2 Sat by Pulse 94 L Oximetry Medical Decision Making - Medical Decision Making The patient had CT scan of the brain that I interpreted as negative for acute bony injury, intracranial hemorrhage, mass effect. The patient had CT scan of the abdomen and pelvis that I interpreted as negative for free air, obstruction, or other acute surgical condition. - Lab Data Result diagrams: 03/21/24 21:26 03/21/24 21:26 Lab Results 03/21/24 03/21/24 03/21/24 Range/Units 21:12 21:26 21:26 WBC 18.6 H (3.8-10.6) k/uL RBC 4.11 (3.80-5.40) m/uL Hgb 12.6 (11.4-16.0) gm/dL Hct 39.3 (34.0-46.0) % MCV 95.7 (80.0-100.0) fL MCH 30.6 (25.0-35.0) pg MCHC 32.0 (31.0-37.0) g/dL RDW 14.5 (11.5-15.5) % Plt Count 121 L (150-450) k/uL MPV 7.9 Neutrophils % 93 % Lymphocytes % 3 % Monocytes % 3 % Eosinophils % 1 % Basophils % 0 % Neutrophils # 17.4 H (1.3-7.7) k/uL Lymphocytes # 0.5 L (1.0-4.8) k/uL Monocytes # 0.5 (0-1.0) k/uL Eosinophils # 0.1 (0-0.7) k/uL Basophils # 0.0 (0-0.2) k/uL PT 10.4 (10.0-12.5) sec INR 0.9 (<1.2) APTT 21.1 L (22.0-30.0) sec Sodium (137-145) mmol/L Potassium (3.5-5.1) mmol/L Chloride (98-107) mmol/L Carbon Dioxide (22-30) mmol/L Anion Gap mmol/L BUN (7-17) mg/dL Creatinine (0.52-1.04) mg/dL Est GFR (CKD-EPI)AfAm (>60 ml/min/1.73 sqM) Est GFR (CKD-EPI)NonAf (>60 ml/min/1.73 sqM) Glucose (74-99) mg/dL POC Glucose (mg/dL) 143 H (70-110) mg/dL POC Glu Professional Wrestler ID Cazares Jessi Plasma Lactic Acid Nino (0.7-2.0) mmol/L Calcium (8.4-10.2) mg/dL Total Bilirubin (0.2-1.3) mg/dL AST (14-36) U/L ALT (4-34) U/L Alkaline Phosphatase (38-126) U/L Troponin I (0.000-0.034) ng/mL C-Reactive Protein (<1.0) mg/dL Total Protein (6.3-8.2) g/dL Albumin (3.5-5.0) g/dL 03/21/24 03/21/24 03/21/24 Range/Units 21:26 21:26 21:26 WBC (3.8-10.6) k/uL RBC (3.80-5.40) m/uL Hgb (11.4-16.0) gm/dL Hct (34.0-46.0) % MCV (80.0-100.0) fL MCH (25.0-35.0) pg MCHC (31.0-37.0) g/dL RDW (11.5-15.5) % Plt Count (150-450) k/uL MPV Neutrophils % % Lymphocytes % % Monocytes % % Eosinophils % % Basophils % % Neutrophils # (1.3-7.7) k/uL Lymphocytes # (1.0-4.8) k/uL Monocytes # (0-1.0) k/uL Eosinophils # (0-0.7) k/uL Basophils # (0-0.2) k/uL PT (10.0-12.5) sec INR (<1.2) APTT (22.0-30.0) sec Sodium 139 (137-145) mmol/L Potassium 3.9 (3.5-5.1) mmol/L Chloride 99 (98-107) mmol/L Carbon Dioxide 31 H (22-30) mmol/L Anion Gap 9 mmol/L BUN 39 H (7-17) mg/dL Creatinine 1.21 H (0.52-1.04) mg/dL Est GFR (CKD-EPI)AfAm 47 (>60 ml/min/1.73 sqM) Est GFR (CKD-EPI)NonAf 41 (>60 ml/min/1.73 sqM) Glucose 142 H (74-99) mg/dL POC Glucose (mg/dL) (70-110) mg/dL POC Glu Professional Wrestler ID Plasma Lactic Acid Nino 1.7 (0.7-2.0) mmol/L Calcium 9.6 (8.4-10.2) mg/dL Total Bilirubin 1.3 (0.2-1.3) mg/dL AST 31 (14-36) U/L ALT 16 (4-34) U/L Alkaline Phosphatase 139 H (38-126) U/L Troponin I 0.018 (0.000-0.034) ng/mL C-Reactive Protein 0.6 (<1.0) mg/dL Total Protein 7.6 (6.3-8.2) g/dL Albumin 4.6 (3.5-5.0) g/dL - EKG Data -: EKG Interpreted by De EKG shows normal: axis (This deviation), intervals (QRS duration 142 ms, consistent with left bundle branch block. QTc 398 ms, normal), QRS complexes (Left bundle branch block, distinct) Rate: tachycardia (120) Interpretation: other (-year-old fibrillation) Disposition Referrals: George Quesada DO [Primary Care Provider] - 1-2 days
[2024-03-21 21:39] LABS: Basophils % (A) 0 %; Eosinophils # (A) 0.1 k/uL (0-0.7); Eosinophils % (A) 1 %; HCT 39.3 % (34.0-46.0); HGB 12.6 gm/dL (11.4-16.0); Lymphocytes # (A) 0.5 k/uL (1.0-4.8); Lymphocytes % (A) 3 %; MCH 30.6 pg (25.0-35.0); MCV 95.7 fL (80.0-100.0); Mean Platelet Volume 7.9; Monocytes # (A) 0.5 k/uL (0-1.0); Monocytes % (A) 3 %; Neutrophils # (A) 17.4 k/uL (1.3-7.7); Neutrophils % (A) 93 %; Platelet Count 121 k/uL (150-450); RBC 4.11 m/uL (3.80-5.40); RDW 14.5 % (11.5-15.5); WBC 18.6 k/uL (3.8-10.6)
[2024-03-21 21:53] LABS: ALT 16 U/L (4-34); AST 31 U/L (14-36); African American GFR (CKD) 47 (>60 ml/min/1.73 sqM); Albumin 4.6 g/dL (3.5-5.0); Alkaline Phosphatase 139 U/L (38-126); Anion Gap 9 mmol/L; Blood Urea Nitrogen 39 mg/dL (7-17); Calcium 9.6 mg/dL (8.4-10.2); Carbon Dioxide 31 mmol/L (22-30); Chloride 99 mmol/L (98-107); Glucose 142 mg/dL (74-99); Non-African American GFR(CKD) 41 (>60 ml/min/1.73 sqM); Potassium 3.9 mmol/L (3.5-5.1); Sodium 139 mmol/L (137-145); Total Bilirubin 1.3 mg/dL (0.2-1.3); Total Protein 7.6 g/dL (6.3-8.2)
--- NOTE | 2024-03-21 21:54 | XR ---
EXAMINATION TYPE: XR chest 2V DATE OF EXAM: 03/21/2024 COMPARISON: 09/25/2023 HISTORY: 89-year-old female confusion, altered mental status TECHNIQUE: AP and lateral views FINDINGS: Heart mild enlarged. Diffuse interstitial and vascular density. No sizable pleural effusion. Endovasc ular aortic valve replacement. Cholecystectomy clips. Advanced degenerative change of both shoulders. IMPRESSION: Cardiomegaly and diffuse interstitial and vascular opacity. Correlate for CHF with pulmonary vascular congestion. Interstitial pneumonitis or atypical pneumonias would be an alternative consideration. [facility], , 03/21/2024 9:51 PM
[2024-03-21] MEDS: MORPHINE SULFATE 4 MG/ML SYRINGE IV STA (21:55)
[2024-03-21 22:00] LABS: INR 0.9 (<1.2); Partial Thromboplastin Time 21.1 sec (22.0-30.0); Prothrombin Time 10.4 sec (10.0-12.5)
[2024-03-21 22:06] LABS: C Reactive Protein 0.6 mg/dL (<1.0)
--- NOTE | 2024-03-21 22:13 | CT ---
EXAMINATION TYPE: CT abdomen pelvis wo con DATE OF EXAM: 03/21/2024 COMPARISON: CT pelvis 01/23/2023 HISTORY: 89-year-old female confusion, Pt coming in for AMS. Pts last known normal was 1730. Pt ate d inner with sister whom she lives with. Pt was not acting like herself around 1800. CT DLP: 916.6 mGycm. Automated exposure control for dose reduction was used. TECHNIQUE: Contiguous axial scanning of the abdomen and pelvis without IV contrast. Coronal and sagit melissa reconstructions performed. FINDINGS: The heart is borderline enlarged. Endovascular aortic valve placement. Coronary artery calcifications . There is asymmetric soft tissue thickening and calcification lateral aspect of the left breast whic h should be correlated clinically. Strandy and hazy atelectasis or scarring at the lower lungs. No pl eural effusion. Tiny hiatal hernia. Noncontrast appearance of the liver, adrenal glands, left kidney, spleen, and atrophic pancreas show no gross abnormal. Nonobstructive 4 mm right lower pole renal stone. No hydronephrosis on either side. Moderate atherosclerotic calcifications infrarenal abdominal aorta and common iliac arteries. No dilated bowel, free fluid, or free air. No mesenteric or retroperitoneal adenopathy identified slim ng for noncontrast technique. Mild stool burden. Sigmoid diverticulosis. No pericolonic inflammatory change. Bladder urine distended. Suspect a small postmenopausal uterus. Right ovary visualized. Left ovary no t clearly delineated. No abnormal fluid collection of pelvis. There appear to be asymmetrically enlarged right inguinal lymph nodes measuring up to 2.7 cm particul clary along the upper right femoral chain. Antegrade intramedullary nail and hip screw fixation proximal right femur. Old healed fracture deform ities right pubic rami. Chronic-appearing vertebral compression deformity of L5. There is additional vertebral compression fr acture at T12 with a well-defined horizontal cleft and mild paravertebral soft tissue swelling. Some air is noted within the cleft. No edinson retropulsion into the ventral spinal canal. Approximately 50% overall height loss. Advanced hypertrophic facet arthropathy throughout with grade 1 anterolisthesis L3-L4. Moderate degenerative disc disease throughout. IMPRESSION: 1. Vertebral compression collapse of T12 with 50% height loss. There is a prominent horizontal cleft that contains a few foci of air. Given some paravertebral soft tissue swelling, correlate for acute to subacute fracture and/or Kummel's disease. 2. Asymmetric trabecular thickening and calcification lateral left breast. Recommend further clinic al assessment to exclude underlying breast cancer. Recommend further mammographic workup. 3. Asymmetrically enlarged right inguinal and upper right femoral chain lymph nodes measuring up to 2.7 cm. Possibly reactive to some type of upstream inflammation/infection. Correlate with physical ex am findings. Tissue sampling if suspicious features or concern for metastatic disease. 4. Sigmoid diverticulosis without acute diverticulitis. Tiny hiatal hernia. 4 mm nonobstructive righ t renal stone. [facility], , 03/21/2024 10:11 PM
--- NOTE | 2024-03-21 22:15 | CT ---
EXAMINATION TYPE: CT brain wo con DATE OF EXAM: 03/21/2024 COMPARISON: 09/23/2023 HISTORY: 89-year-old female confusion, Pt coming in for AMS. Pt's last known normal was 1730. Pt ate dinner with sister whom she lies with. Pt was not acting like herself around 1800. TECHNIQUE: Examination was done in axial plane without intravenous contrast. Coronal and sagittal r econstructions performed. CT DLP: 1184.4 mGycm Automated exposure control for dose reduction was used. FINDINGS: There is no evidence of acute intracranial hemorrhage, acute ischemic changes, mass, mass-effect, or extra-axial fluid collection. There is no effacement of cerebral sulci or basal subarachnoid cister ns. There is no midline shift. Garcia-white matter distinction is preserved. Mild to moderate generalized supratentorial volume loss. Secondary mild prominence to the ventricular system is unchanged. Moderate patchy white matter hypodensities in both cerebral hemispheres. Trace mucosal thickening right maxillary sinus and bilateral ethmoid air cells. There appears to be p revious reconstruction along the left inferior orbital rim. Mastoid air cells well pneumatized. Scatt ered periodontal disease especially right maxilla. IMPRESSION: Mild to moderate generalized cerebral atrophy and moderate patchy burden of chronic small vessel isch emic disease. No acute intracranial abnormality seen. [facility], , 03/21/2024 10:13 PM
[2024-03-21] MEDS: SODIUM CHLORIDE 0.9% 1,400 ML IV ONE (22:43)
[2024-03-22] MEDS ORDERED: NALOXONE 0.4 MG/ML 1 ML VIAL IV PRN (00:23)
[2024-03-22] MEDS: SODIUM CHLORIDE 0.9% 1,000 ML IV STA (00:24)
[2024-03-22] MEDS: ACETAMINOPHEN TAB 325 MG TAB PO PRN (02:51)
[2024-03-22] MEDS ORDERED: VANCOMYCIN IV PER PHARMACY 1 EACH MISC MISCELLANE PRN (03:58)
[2024-03-22] MEDS: IBUPROFEN 600 MG TAB PO STA (04:05)
[2024-03-22] MEDS: VANCOMYCIN 1,000 MG in SODIUM CHLORIDE 0.9% 250 ML IVPB ONE (05:02)
[2024-03-22] MEDS: FAMOTIDINE 20 MG TAB PO SCH (09:41)
[2024-03-22] MEDS: METOPROLOL TARTRATE 50 MG TAB PO SCH (12:54)
[2024-03-22] MEDS: CEFEPIME 2 GM in SODIUM CHLORIDE 0.9% 100 ML IVPB SCH (13:35)
--- NOTE | 2024-03-22 13:46 | P.CNPUL ---
History of Present Illness Consult date: 03/22/24 Requesting physician: Derrell Rodriguez Reason for consult: abnormal CXR/CT Chief complaint: Altered mental status History of present illness: This is an 89-year-old female patient who follows with Dr. Quesada as her primary care provider. She has a history of chronic obstructive pulmonary disease, atrial fibrillation anticoagulated with Eliquis, diabetes mellitus, hyperlipidemia, hypertension, dementia, osteoarthritis, previous transcatheter aortic valve replacement. She also has a nonhealing leg ulceration on the lower extremity on the right. She follows at the wound care clinic. She resides with her sister. Today she was noted to have altered mental status, generalized weakness, poor appetite brought here to the emergency room. Chest x-ray shows cardiomegaly and diffuse interstitial and vascular opacity. Abdominal CT scan revealed vertebral compression collapse at T12 with 50% height loss. Asymmetrical enlarged right inguinal and upper right femoral chain lymph nodes measuring 2.7. Suspect inflammation/infection. Sigmoid diverticulosis without acute diverticulitis. CT scan of the brain revealed mild to moderate generalized cerebral atrophy and moderate patchy burden of chronic small vessel ischemic disease. No acute intracranial abnormalities seen. White count 18.6. Hemoglobin 12.6. Platelets 121. Sodium 139. Potassium 3.9. Bicarb 31. BUN 39. Creatinine 1.21. Glucose 142. Troponin 0.018, 0.047, 0.045. proBNP 850. Viral screen negative. She did have a Tmax of 102.8 early this morning. She is seen today in consultation in the emergency department. She is currently awake and alert. Confused at times. Her family is at the bedside provides most of the information. Review of Systems REVIEW OF SYSTEMS: CONSTITUTIONAL: Denies any recent significant weight loss or weight gain. EYES: Denies change in vision. EARS, NOSE, MOUTH, THROAT: Denies headaches, denies sore throat. CARDIOVASCULAR: Denies chest pain, palpitations or syncopal episodes. RESPIRATORY: Denies shortness of breath, cough, congestion or hemoptysis. GASTROINTESTINAL: Positive for poor appetite, denies abdominal pain GENITOURINARY: Denies hematuria, denies infections. MUSKULOSKELETAL: Denies pain, denies swelling. INTEGUMENTARY: Denies rash, denies eczema. NEUROLOGICAL: Positive for altered mental status, no recent seizure activity. PSYCHIATRIC: Denies anxiety, denies depression. HEMATOLOGIC/LYMPHATIC: Denies anemia, denies enlarged lymph nodes. Past Medical History Past Medical History: Atrial Fibrillation, COPD, Diabetes Mellitus, Hyperlipidemia, Hypertension, Memory Impairment, Osteoarthritis (OA) Additional Past Medical History / Comment(s): possible Hiatal Hernia, left neck mass History of Any Multi-Drug Resistant Organisms: None Reported Past Surgical History: Cardiac Valve Replacement, Cholecystectomy, Orthopedic Surgery Additional Past Surgical History / Comment(s): Right knee surgery X5, Hammer Toe surgery, left knee arthroscopy Past Anesthesia/Blood Transfusion Reactions: Previous Problems w/ Anesthesia Additional Past Anesthesia/Blood Transfusion Reaction / Comment(s): Woke up during last knee surgery. Past Psychological History: No Psychological Hx Reported Smoking Status: Current some day smoker - Past Family History Father Family Medical History: Cancer Additional Family Medical History / Comment(s): Prostate Cancer. Brother(s) Additional Family Medical History / Comment(s): Blood clot from surgery. Medications and Allergies Home Medications Medication Instructions Recorded Confirmed Type Apixaban [Eliquis] 2.5 mg PO BID 10/10/18 03/22/24 History Atorvastatin [Lipitor] 40 mg PO Q2D@2100 10/10/18 03/22/24 History Latanoprost/Pf [Latanoprost 0.005% 1 drop BOTH EYES HS 10/10/18 03/22/24 History Eye Drop] Multivitamins, Thera [Multivitamin 1 tab PO DAILY 10/10/18 03/22/24 History (formulary)] Donepezil [Aricept] 10 mg PO DAILY 12/27/20 03/22/24 History Ferrous Sulfate [Iron (65 MG 325 mg PO HS 09/22/23 03/22/24 History Elemental)] Memantine [Namenda] 10 mg PO BID 09/22/23 03/22/24 History traMADol HCL 50 mg PO BID 09/22/23 03/22/24 History Dapagliflozin Propanediol [Farxiga] 10 mg PO DAILY #30 tablet 09/28/23 03/22/24 Rx Furosemide [Lasix] 40 mg PO DAILY #33 tablet 09/29/23 03/22/24 Rx Gabapentin 300 mg PO BID #9 cap 09/29/23 03/22/24 Rx Metoprolol Tartrate [Lopressor] 50 mg PO BID 03/22/24 03/22/24 History Allergies Allergy/AdvReac Type Severity Reaction Status Date / Time Paper Tape Allergy Redness/Itc Uncoded 03/22/24 07:54 erick Physical Exam Vitals: Vital Signs Temp Pulse Resp BP Pulse Ox 03/22/24 12:00 73 106/49 98 03/22/24 10:28 98.1 F 03/22/24 10:00 74 17 104/65 96 03/22/24 09:00 89 112/55 98 03/22/24 08:02 87 105/52 95 03/22/24 05:04 99.5 F 105 H 16 98/50 93 L 03/22/24 03:54 102.6 F H 03/22/24 03:26 101.5 F H 03/22/24 02:54 102.8 F H 121 H 26 H 105/48 93 L 03/22/24 00:42 105 H 17 120/61 94 L 03/21/24 21:11 98.9 F 113 H 22 139/89 94 L Intake and Output 03/21/24 03/22/24 03/22/24 22:59 06:59 14:59 Other: Weight 65.771 kg GENERAL EXAM: Alert, confused 89-year-old female, on 2 L nasal cannula, comfortable in no apparent distress. HEAD: Normocephalic. EYES: Normal reaction of pupils, equal size. NOSE: Clear with pink turbinates. THROAT: No erythema or exudates. NECK: No masses, no JVD. CHEST: No chest wall deformity. LUNGS: Equal air entry with no crackles, wheeze, rhonchi or dullness. CVS: S1 and S2 normal with no audible murmur, regular rhythm. ABDOMEN: No hepatosplenomegaly, normal bowel sounds, no guarding or rigidity. SPINE: No scoliosis or deformity SKIN: No rashes CENTRAL NERVOUS SYSTEM: No focal deficits, tone is normal in all 4 extremities. EXTREMITIES: There is no peripheral edema. No clubbing, no cyanosis. Peripheral pulses are intact. Results - Laboratory Findings CBC and BMP: 03/21/24 21:26 03/21/24 21: PT/INR, D-dimer PT 10.4 sec (10.0-12.5) 03/21/24: INR 0.9 (<1.2) 10/21/24 21:26 Abnormal lab findings: Abnormal Labs 03/21/24 03/21/24 03/21/24 21:12 21:26 21:26 WBC 18.6 H Plt Count 121 L Neutrophils # 17.4 H Lymphocytes # 0.5 L APTT 21.1 L Carbon Dioxide BUN Creatinine Glucose POC Glucose (mg/dL) 143 H Alkaline Phosphatase Troponin I 03/21/24 03/22/24 03/22/24 21:26 07:09 09:23 WBC Plt Count Neutrophils # Lymphocytes # APTT Carbon Dioxide 31 H BUN 39 H Creatinine 1.21 H Glucose 142 H POC Glucose (mg/dL) Alkaline Phosphatase 139 H Troponin I 0.047 H* 0.045 H* - Diagnostic Findings Chest x-ray: image reviewed Assessment and Plan Assessment: Altered mental status is unclear etiology Febrile illness of unclear etiology possibly related to right lower extremity infection Acute kidney injury Leukocytosis Troponin leak Wound culture from right leg dated 03/10/2024 positive for Enterobacter cloacae, Enterobacter aerogenes, corynebacterium stratum, beta-hemolytic strep group G 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 Chronic obstructive pulmonary disease, inactive and stable Chronic tobacco dependence Atrial fibrillation, anticoagulated with Eliquis History of dementia Diabetes mellitus Hypertension Hyperlipidemia Osteoarthritis Plan: The patient was seen and evaluated Imaging, labs and medications reviewed Continue cefepime and vancomycin Consult infectious disease Anticoagulated with Eliquis Pepcid for GI prophylaxis DNR CODE STATUS We will continue to follow and make further recommendations based on her clinical status I have personally seen and examined the patient, performed the documentation and the assessment and plan as written. Number of minutes spent on the visit: 20 Dictation was produced using [employer] dictation software. Please excuse any grammatical, word or spelling errors.
[2024-03-22] MEDS: CEFEPIME 1 GM in SODIUM CHLORIDE 0.9% 50 ML IVPB SCH (14:20)
[2024-03-22 14:35] LABS: Appearance,Urine Clear (Clear); Bilirubin,Urine Negative (Negative); Blood,Urine Negative (Negative); Color,Urine Yellow; Glucose,Urine (UA) 4+ (Negative); Ketones,Urine Negative (Negative); Leukocyte Esterase,Urine Negative (Negative); Nitrite,Urine Negative (Negative); PH, Urine 5.5 (5.0-8.0); Protein,Urine Negative (Negative); Specific Gravity,Urine 1.012 (1.001-1.035); Urobilinogen,Urine <2.0 mg/dL (<2.0)
[2024-03-22 14:50] LABS: Cocaine Screen,Urine Not Detected (NotDetected); Phencyclidine Screen,Urine Not Detected (NotDetected); Urn Cannabinoid Scrn Not Detected (NotDetected)
[2024-03-22 14:51] LABS: Amphetamine Screen,Urine Not Detected (NotDetected); Barbiturate Screen,Urine Not Detected (NotDetected); Benzodiazepines Screen,Urine Not Detected (NotDetected); Methadone Screen, Urine Not Detected (NotDetected); Opiate Screen,Urine Detected (NotDetected); Oxycodone Screen, Urine Not Detected (NotDetected); Tricyclic Antidepressant,Urine Not Detected (NotDetected)
[2024-03-22] MEDS: traMADol 50 MG TAB PO PRN (20:39)
[2024-03-22] MEDS: APIXABAN 2.5 MG TABLET PO SCH (22:22)
[2024-03-22] MEDS: ATORVASTATIN 40 MG TAB PO SCH (22:22)
--- NOTE | 2024-03-22 22:23 | P.HPIM ---
History of Present Illness H&P Date: 03/22/24 Chief Complaint: Altered mental status Patient is a 89-year-old female with a known history of atrial fibrillation on anticoagulation with Eliquis, history of valve replacement, hypertension, hyperlipidemia, diabetes type 2, memory impairment/dementia, osteoarthritis and chronic right lower extremity wound. Patient was brought to ER by her family due to altered mental status. Patient has been lethargic and less active and has not eating well for the past couple days. She was also complaining of lower abdominal pain and lower extremity cramps. Patient also developed fever at home. Otherwise patient could not provide much history due to altered mental status and underlying dementia. Patient's son is at bedside was able to provide history. Per patient does not have any nausea vomiting or diarrhea. No cough or sputum production. No headache or dizziness as per family. Patient was tachycardic and tachypneic and also febrile with Tmax 102.8 on admission. Chest x-ray on admission showed cardiomegaly and diffuse interstitial and vascular opacity. Correlate for CHF with pulmonary vascular congestion. Interstitial pneumonitis or atypical pneumonias would be an alternative consideration. EKG showed atrial fibrillation with rapid ventricular response. CT of the abdomen pelvis showed vertebral compression collapse of T12 with 50% height loss. Asymmetric trabecular thickening and calcification lateral left breast recommend further mammographic workup. Asymmetrically enlarged right inguinal and upper right femoral chain lymph nodes measuring up to 2.7 cm probably reactive to some type of upstream inflammation/infection. Sigmoid diverticulosis without acute diverticulitis. CT head showed mild to moderate generalized cerebral atrophy and moderate patchy burden of chronic small vessel ischemic disease. No acute intracranial abnormality seen. Laboratory data showed WBC 18.6, hemoglobin 12.6 and platelets 121 sodium 139 potassium 3.9 chloride 99 bicarb is 31 BUN 39 and creatinine 1.21 and blood sugar 142 alk phos 139 troponin 0.018, 0.047 and 0.045 proBNP 850 Influenza A B RSV and COVID-19 PCR not detected. Review of Systems ROS unobtainable: due to mental status Past Medical History Past Medical History: Atrial Fibrillation, COPD, Diabetes Mellitus, Hyperlipide roselia, Hypertension, Memory Impairment, Osteoarthritis (OA) Additional Past Medical History / Comment(s): possible Hiatal Hernia, left neck mass History of Any Multi-Drug Resistant Organisms: None Reported Past Surgical History: Cardiac Valve Replacement, Cholecystectomy, Orthopedic Surgery Additional Past Surgical History / Comment(s): Right knee surgery X5, Hammer Toe surgery, left knee arthroscopy Past Anesthesia/Blood Transfusion Reactions: Previous Problems w/ Anesthesia Additional Past Anesthesia/Blood Transfusion Reaction / Comment(s): Woke up during last knee surgery. Past Psychological History: No Psychological Hx Reported Smoking Status: Current some day smoker - Past Family History Father Family Medical History: Cancer Additional Family Medical History / Comment(s): Prostate Cancer. Brother(s) Additional Family Medical History / Comment(s): Blood clot from surgery. Medications and Allergies Home Medications Medication Instructions Recorded Confirmed Type Apixaban [Eliquis] 2.5 mg PO BID 10/10/18 03/22/24 History Atorvastatin [Lipitor] 40 mg PO Q2D@2100 10/10/18 03/22/24 History Latanoprost/Pf [Latanoprost 0.005% 1 drop BOTH EYES HS 10/10/18 03/22/24 History Eye Drop] Multivitamins, Thera [Multivitamin 1 tab PO DAILY 10/10/18 03/22/24 History (formulary)] Donepezil [Aricept] 10 mg PO DAILY 12/27/20 03/22/24 History Ferrous Sulfate [Iron (65 MG 325 mg PO HS 09/22/23 03/22/24 History Elemental)] Memantine [Namenda] 10 mg PO BID 09/22/23 03/22/24 History traMADol HCL 50 mg PO BID 09/22/23 03/22/24 History Dapagliflozin Propanediol [Farxiga] 10 mg PO DAILY #30 tablet 09/28/23 03/22/24 Rx Furosemide [Lasix] 40 mg PO DAILY #33 tablet 09/29/23 03/22/24 Rx Gabapentin 300 mg PO BID #9 cap 09/29/23 03/22/24 Rx Metoprolol Tartrate [Lopressor] 50 mg PO BID 03/22/24 03/22/24 History Allergies Allergy/AdvReac Type Severity Reaction Status Date / Time Paper Tape Allergy Redness/Itc Uncoded 03/22/24 07:54 erick Physical Exam Vitals: Vital Signs Temp Pulse Resp BP Pulse Ox 03/22/24 10:28 98.1 F 03/22/24 10:00 74 17 104/65 96 03/22/24 09:00 89 112/55 98 10/22/24 08:02 87 105/52 95 03/22/24 05:04 99.5 F 105 H 16 98/50 93 L 03/22/24 03:54 102.6 F H 03/22/24 03:26 101.5 F H 03/22/24 02:54 102.8 F H 121 H 26 H 105/48 93 L 03/22/24 00:42 105 H 17 120/61 94 L 03/21/24 21:11 98.9 F 113 H 22 139/89 94 L Intake and Output 03/21/24 03/22/24 03/22/24 22:59 06:59 14:59 Other: Weight 65.771 kg PHYSICAL EXAMINATION: Patient is lying in the bed. No acute distress., awake alert and oriented x 1- 2.. HEENT: Normocephalic. Neck is supple. Pupils reactive. Nostrils clear. Oral cavity is moist. Neck reveals no JVD, carotid bruits, or thyromegaly. CHEST EXAMINATION: Trachea is central. Symmetrical expansion. Lung lovett clear to auscultation and percussion. CARDIAC: Normal S1, S2 with no gallops. No murmurs ABDOMEN: Soft. Bowel sounds normal. No organomegaly. No abdominal bruits. Extremities: Right lower extremity wound at the hernandez region is wrapped.. No clubbing or cyanosis Neurologically awake, alert, oriented x 1-2. Patient is able to move all e xtremities while in bed. No gross focal neurological deficit. Psychiatric: Coperative. Could not be assessed completely Musculoskeletal: No joint swelling or deformity. Results CBC & Chem 7: 03/21/24 21:26 03/21/24 21:26 Labs: Abnormal Lab Results - Last 24 Hours (Table) 03/21/24 03/21/24 03/21/24 Range/Units 21:12 21:26 21:26 WBC 18.6 H (3.8-10.6) k/uL Plt Count 121 L (150-450) k/uL Neutrophils # 17.4 H (1.3-7.7) k/uL Lymphocytes # 0.5 L (1.0-4.8) k/uL APTT 21.1 L (22.0-30.0) sec Carbon Dioxide (22-30) mmol/L BUN (7-17) mg/dL Creatinine (0.52-1.04) mg/dL Glucose (74-99) mg/dL POC Glucose (mg/dL) 143 H (70-110) mg/dL Alkaline Phosphatase (38-126) U/L Troponin I (0.000-0.034) ng/mL 03/21/24 03/22/24 03/22/24 Range/Units 21:26 07:09 09:23 WBC (3.8-10.6) k/uL Plt Count (150-450) k/uL Neutrophils # (1.3-7.7) k/uL Lymphocytes # (1.0-4.8) k/uL APTT (22.0-30.0) sec Carbon Dioxide 31 H (22-30) mmol/L BUN 39 H (7-17) mg/dL Creatinine 1.21 H (0.52-1.04) mg/dL Glucose 142 H (74-99) mg/dL POC Glucose (mg/dL) (70-110) mg/dL Alkaline Phosphatase 139 H (38-126) U/L Troponin I 0.047 H* 0.045 H* (0.000-0.034) ng/mL Thrombosis Risk Factor Assmnt - DVT/VTE Prophylaxis DVT/VTE Prophylaxis: Pharmacologic Prophylaxis ordered Assessment and Plan Assessment: Acute altered mental status possible metabolic e encephalopathy due to infection Right lower extremity wound infection with recent cultures growing Enterobacter, Corynebacterium and beta-hemolytic Streptococcus group G Severe sepsis secondary to above Asymmetrically enlarged right inguinal and upper right femoral chain lymph nodes measuring up to 2 point centimeter probably reactive to some type of upstream inflammation/infection. Chronic nonhealing right lower extremity wound Atrial fibrillation with rapid response on admission Troponin elevation possible demand ischemia. COPD not in exacerbation Acute kidney injury likely prerenal Chronic atrial fibrillation on anticoagulation with Eliquis Dementia Diabetes type 2 Hypertension Hypokalemia Osteoarthritis Current someday smoker DVT prophylaxis patient is already on Eliquis Plan: Patient was given IV hydration. Continue with antibiotics vancomycin and cefepime and wound cultures were sent. Follow-up blood cultures and wound care and ID consult. Continue with home medications and pain management. Continue to follow closely. Discussed with charge son at bedside. Prognosis is guarded at this time. Time with Patient: Greater than 30
--- NOTE | 2024-03-22 22:27 | P.CONS ---
History of Present Illness - Reason for Consult Consult date: 03/22/24 Right leg wound infection Requesting physician: Coty Viera - Chief Complaint Fever mental status changes x 1 day - History of Present Illness Patient is a 89-year-old female past medical history significant for diabetes mellitus hypertension hyperlipidemia memory impairment COPD atrial fibrillation patient also have a chronic nonhealing wound to the right lower extremity for the patient to follow at [facility] [place] patient presented to [facility] ER for evaluation of mental status changes apparently she has eaten dinner with her sister and then become less active seem to be confused she was complaining some abdominal discomfort as well as pain to the right lower extremity and did have some chills patient has been brought to the hospital on arrival to the ER the patient was initially afebrile subsequently she spiked a fever of 102.8 degrees Fahrenheit patient was tachycardic but not hypotensive or hypoxic patient did have a white count of 18.6 with a left shift BUN/creatinine has been mildly elevated liver enzymes are normal urine has been negative urinalysis was positive for opiate influenza RSV COVID testing was negative patient did have a chest x-ray cardiomegaly and diffuse interstitial and vascular opacity correlate for CHF with pulmonary vascular congestion abdominal pelvis CT for TAVR compression collapse of T12 with 50% height loss asymmetric trabecular thickening and calcification left lateral breast asymmetric enlarged right inguinal and upper right femoral chain lymph nodes but no acute intra-abdominal pathology patient was started on vancomycin infectious was consulted concerning for wound infection Review of Systems Positive point and negatives has been mentioned in the HPI, complete review of systems was performed and all other systems are negative Past Medical History Past Medical History: Atrial Fibrillation, COPD, Diabetes Mellitus, Hyperlipidemia, Hypertension, Memory Impairment, Osteoarthritis (OA) Additional Past Medical History / Comment(s): possible Hiatal Hernia, left neck mass History of Any Multi-Drug Resistant Organisms: None Reported Past Surgical History: Cardiac Valve Replacement, Cholecystectomy, Orthopedic Surgery Additional Past Surgical History / Comment(s): Right knee surgery X5, Hammer Toe surgery, left knee arthroscopy Past Anesthesia/Blood Transfusion Reactions: Previous Problems w/ Anesthesia Additional Past Anesthesia/Blood Transfusion Reaction / Comm: Woke up during last knee surgery. Past Psychological History: No Psychological Hx Reported Smoking Status: Current some day smoker - Past Family History Father Family Medical History: Cancer Additional Family Medical History / Comment(s): Prostate Cancer. Brother(s) Additional Family Medical History / Comment(s): Blood clot from surgery. Medications and Allergies Home Medications Medication Instructions Recorded Confirmed Type Apixaban [Eliquis] 2.5 mg PO BID 10/10/18 03/22/24 History Atorvastatin [Lipitor] 40 mg PO Q2D@2100 10/10/18 03/22/24 History Latanoprost/Pf [Latanoprost 0.005% 1 drop BOTH EYES HS 10/10/18 03/22/24 History Eye Drop] Multivitamins, Thera [Multivitamin 1 tab PO DAILY 10/10/18 03/22/24 History (formulary)] Donepezil [Aricept] 10 mg PO DAILY 12/27/20 03/22/24 History Ferrous Sulfate [Iron (65 MG 325 mg PO HS 09/22/23 03/22/24 History Elemental)] Memantine [Namenda] 10 mg PO BID 09/22/23 03/22/24 History traMADol HCL 50 mg PO BID 09/22/23 03/22/24 History Dapagliflozin Propanediol [Farxiga] 10 mg PO DAILY #30 tablet 09/28/23 03/22/24 Rx Furosemide [Lasix] 40 mg PO DAILY #33 tablet 09/29/23 03/22/24 Rx Gabapentin 300 mg PO BID #9 cap 09/29/23 03/22/24 Rx Metoprolol Tartrate [Lopressor] 50 mg PO BID 03/22/24 03/22/24 History Allergies Allergy/AdvReac Type Severity Reaction Status Date / Time Paper Tape Allergy Redness/Itc Uncoded 03/22/24 07:54 erick Physical Exam Vitals: Vital Signs Temp Pulse Resp BP Pulse Ox 03/22/24 10:28 98.1 F 03/22/24 10:00 74 17 104/65 96 03/22/24 09:00 89 112/55 98 03/22/24 08:02 87 105/52 95 03/22/24 05:04 99.5 F 105 H 16 98/50 93 L 03/22/24 03:54 102.6 F H 03/22/24 03:26 101.5 F H 03/22/24 02:54 102.8 F H 121 H 26 H 105/48 93 L 03/22/24 00:42 105 H 17 120/61 94 L 03/21/24 21:11 98.9 F 113 H 22 139/89 94 L Intake and Output 03/21/24 03/22/24 03/22/24 22:59 06:59 14:59 Other: Weight 65.771 kg GENERAL DESCRIPTION: Elderly female lying in bed, no distress. No tachypnea or accessory muscle of respiration use. HEENT: Shows Pallor , no scleral icterus. Oral mucous membrane is dry. No pharyngeal erythema or thrush NECK: Trachea central, no thyromegaly. LUNGS: Unlabored breathing. Clear to auscultation anteriorly. No wheeze or crackle. HEART: S1, S2, regular rate and rhythm. No loud murmur ABDOMEN: Soft, no tenderness , guarding or rigidity, no organomegaly EXTREMITIES: Right leg wound with slough tissue with some surrounding swelling minimal redness SKIN: No rash, no masses palpable. NEUROLOGICAL: The patient is awake, alert, oriented x3, mood and affect normal. Results CBC & Chem 7: 03/21/24 21:26 03/21/24 21:26 Labs: Abnormal Lab Results - Last 24 Hours (Table) 03/21/24 03/21/24 03/21/24 Range/Units 21:12 21:26 21:26 WBC 18.6 H (3.8-10.6) k/uL Plt Count 121 L (150-450) k/uL Neutrophils # 17.4 H (1.3-7.7) k/uL Lymphocytes # 0.5 L (1.0-4.8) k/uL APTT 21.1 L (22.0-30.0) sec Carbon Dioxide (22-30) mmol/L BUN (7-17) mg/dL Creatinine (0.52-1.04) mg/dL Glucose (74-99) mg/dL POC Glucose (mg/dL) 143 H (70-110) mg/dL Alkaline Phosphatase (38-126) U/L Troponin I (0.000-0.034) ng/mL 03/21/24 03/22/24 03/22/24 Range/Units 21:26 07:09 09:23 WBC (3.8-10.6) k/uL Plt Count (150-450) k/uL Neutrophils # (1.3-7.7) k/uL Lymphocytes # (1.0-4.8) k/uL APTT (22.0-30.0) sec Carbon Dioxide 31 H (22-30) mmol/L BUN 39 H (7-17) mg/dL Creatinine 1.21 H (0.52-1.04) mg/dL Glucose 142 H (74-99) mg/dL POC Glucose (mg/dL) (70-110) mg/dL Alkaline Phosphatase 139 H (38-126) U/L Troponin I 0.047 H* 0.045 H* (0.000-0.034) ng/mL Assessment and Plan (1) Cellulitis of right leg Current Visit: No Status: Acute Code(s): L03.115 - CELLULITIS OF RIGHT LOWER LIMB SNOMED Code(s): 84992065158099130 (2) Leg wound, right Current Visit: No Status: Acute Code(s): S81.801A - UNSPECIFIED OPEN WOUND, RIGHT LOWER LEG, INITIAL ENCOUNTER SNOMED Code(s): 48069158216558961 (3) Sepsis Current Visit: No Status: Acute Code(s): A41.9 - SEPSIS, UNSPECIFIED [facility] SNOMED Code(s): 33509293 Plan: 1patient presented to hospital with sepsis in this patient did have fever tachycardia elevated white count source is likely right leg wound infection with secondary cellulitis and there is also evidence of enlarged right inguinal lymph node on the CT patient recently did have a outpatient culture done on 03/10/2024 and they did grew strep group G and Enterobacter however is not very clear if the patient has severe and antibiotic for the same and more likely dealing with those pathogen. 2local culture has been pending will guide further antibiotic therapy. 3we will start the patient on cefepime to cover for the Enterobacter while waiting for the culture to finalize. 4local wound care with the Santyl followed by moist dressing change daily. Family at the bedside multiple question concern answered We will follow on clinical condition and cultures to further adjust medication if needed Thank you for this consultation we will follow the patient along with you Dictation was produced using [employer] dictation software. please excuse any grammatical, word or spelling errors. Time with Patient: Greater than 30
[2024-03-22] MEDS: LATANOPROST 0.005% OPHTH DROPS 2.5 ML BTL BOTH EYES SCH (23:12)
[2024-03-23] MEDS: VANCOMYCIN 1,250 MG in SODIUM CHLORIDE 0.9% 250 ML IVPB ONE (06:45)
[2024-03-23 07:30] LABS: African American GFR (CKD) 41 (>60 ml/min/1.73 sqM); Anion Gap 6 mmol/L; Blood Urea Nitrogen 42 mg/dL (7-17); Calcium 8.4 mg/dL (8.4-10.2); Carbon Dioxide 28 mmol/L (22-30); Chloride 103 mmol/L (98-107); Glucose 118 mg/dL (74-99); Non-African American GFR(CKD) 36 (>60 ml/min/1.73 sqM); Potassium 3.3 mmol/L (3.5-5.1); Sodium 137 mmol/L (137-145)
[2024-03-23] MEDS: FAMOTIDINE 20 MG TAB PO SCH (09:34)
[2024-03-23 11:50] LABS: Basophils # (A) 0.03 X 10*3/uL (0.00-0.10); Basophils % (A) 0.2 %; Eosinophils # (A) 0.03 X 10*3/uL (0.04-0.35); Eosinophils % (A) 0.2 %; HCT 30.7 % (37.2-46.3); HGB 9.7 g/dL (12.0-15.0); Immature Platelet Fraction 5.2 % (1.1-6.1); Lymphocytes # (A) 0.55 X 10*3/uL (0.90-5.00); Lymphocytes % (A) 4.3 %; MCH 30.9 pg (27.0-32.0); MCHC 31.6 g/dL (32.0-37.0); MCV 97.8 FL (80.0-97.0); Mean Platelet Volume 11.8 FL (9.5-12.2); Monocytes # (A) 0.63 X 10*3/uL (0.20-1.00); Monocytes % (A) 4.9 %; NRBC Per 100 WBC 0 X 10*3/uL (0.00-0.01); Neutrophils # (A) 11.48 X 10*3/uL (1.80-7.70); Neutrophils % (A) 89.6 %; Platelet Count 74 X 10*3/uL (140-440); RBC 3.14 X 10*6/uL (4.10-5.20); RBC Morphology Normal (Normal); RDW 15.3 % (11.5-14.5); WBC 12.82 X 10*3/uL (4.50-10.00)
--- NOTE | 2024-03-23 13:05 | P.PN ---
Subjective Progress Note Date: 03/23/24 This is an 89-year-old female patient who follows with Dr. Quesada as her primary care provider. She has a history of chronic obstructive pulmonary disease, atrial fibrillation anticoagulated with Eliquis, diabetes mellitus, hyperlipidemia, hypertension, dementia, osteoarthritis, previous transcatheter aortic valve replacement. She also has a nonhealing leg ulceration on the lower extremity on the right. She follows at the wound care clinic. She resides with her sister. Today she was noted to have altered mental status, generalized weakness, poor appetite brought here to the emergency room. Chest x-ray shows cardiomegaly and diffuse interstitial and vascular opacity. Abdominal CT scan revealed vertebral compression collapse at T12 with 50% height loss. Asymmetrical enlarged right inguinal and upper right femoral chain lymph nodes measuring 2.7. Suspect inflammation/infection. Sigmoid diverticulosis without acute diverticulitis. CT scan of the brain revealed mild to moderate generali zed cerebral atrophy and moderate patchy burden of chronic small vessel ischemic disease. No acute intracranial abnormalities seen. White count 18.6. Hemoglobin 12.6. Platelets 121. Sodium 139. Potassium 3.9. Bicarb 31. BUN 39. Creatinine 1.21. Glucose 142. Troponin 0.018, 0.047, 0.045. proBNP 850. Viral screen negative. She did have a Tmax of 102.8 early this morning. She is seen today in consultation in the emergency department. She is currently awake and alert. Confused at times. Her family is at the bedside provides most of the information. The patient is seen today March 23, 2024 in follow-up on the regular medical floor. She is resting comfortably in bed. Awake and alert in no acute distress. Less confused today compared to yesterday. She is maintaining good O2 saturation in the 90s on 2 L/min per nasal cannula. She remains on vancomycin and cefepime. Right leg cultures are showing beta-hemolytic strep group G, gram-negative bacilli. Count 12.8. Hemoglobin 9.7. Platelets 74,000. Sodium 137. Potassium 3.3. Bicarb 28. BUN 42. Creatinine 1.34. Glucose 118. Anticoagulated with Eliquis. Objective - Vital Signs Vital signs: Vital Signs Temp 98.2 F 03/23/24 07:45 Pulse 58 L 03/23/24 07:45 Resp 16 03/23/24 07:45 BP 90/51 03/23/24 07:45 Pulse Ox 98 03/23/24 07:45 FiO2 Intake & Output 03/22/24 03/23/24 03/23/24 18:59 06:59 18:59 Intake Total 480 Output Total 150 Balance -150 480 Intake: Oral 480 Output: Urine 150 Other: # Voids 3 - Exam GENERAL EXAM: Alert, 89-year-old female, on 2 L nasal cannula, in no apparent distress. HEAD: Normocephalic. EYES: Normal reaction of pupils, equal size. NOSE: Clear with pink turbinates. THROAT: No erythema or exudates. NECK: No masses, no JVD. CHEST: No chest wall deformity. LUNGS: Equal air entry with no crackles, wheeze, rhonchi or dullness. CVS: S1 and S2 normal with no audible murmur, regular rhythm. ABDOMEN: No hepatosplenomegaly, normal bowel sounds, no guarding or rigidity. SPINE: No scoliosis or deformity SKIN: No rashes CENTRAL NERVOUS SYSTEM: No focal deficits, tone is normal in all 4 extremities. EXTREMITIES: Right lower extremity wound with slough tissue and surrounding edema with minimal redness. Peripheral pulses are intact. - Labs CBC & Chem 7: 03/23/24 06:31 03/23/24 06:31 Labs: Abnormal Lab Results - Last 24 Hours (Table) 03/22/24 03/22/24 03/23/24 Range/Units 14:13 14:18 06:31 WBC 12.82 H (4.50-10.00) X 10*3/uL RBC 3.14 L (4.10-5.20) X 10*6/uL Hgb 9.7 L (12.0-15.0) g/dL Hct 30.7 L (37.2-46.3) % MCV 97.8 H (80.0-97.0) FL MCHC 31.6 L (32.0-37.0) g/dL RDW 15.3 H (11.5-14.5) % Plt Count 74 L (140-440) X 10*3/uL Immature Gran # 0.10 H (0.00-0.04) X 10*3/uL Neutrophils # 11.48 H (1.80-7.70) X 10*3/uL Lymphocytes # 0.55 L (0.90-5.00) X 10*3/uL Eosinophils # 0.03 L (0.04-0.35) X 10*3/uL Potassium (3.5-5.1) mmol/L BUN (7-17) mg/dL Creatinine (0.52-1.04) mg/dL Glucose (74-99) mg/dL Urine Glucose (UA) 4+ H (Negative) Urine Opiates Screen Detected H (NotDetected) 03/23/24 Range/Units 06:31 WBC (4.50-10.00) X 10*3/uL RBC (4.10-5.20) X 10*6/uL Hgb (12.0-15.0) g/dL Hct (37.2-46.3) % MCV (80.0-97.0) FL MCHC (32.0-37.0) g/dL RDW (11.5-14.5) % Plt Count (140-440) X 10*3/uL Immature Gran # (0.00-0.04) X 10*3/uL Neutrophils # (1.80-7.70) X 10*3/uL Lymphocytes # (0.90-5.00) X 10*3/uL Eosinophils # (0.04-0.35) X 10*3/uL Potassium 3.3 L (3.5-5.1) mmol/L BUN 42 H (7-17) mg/dL Creatinine 1.34 H (0.52-1.04) mg/dL Glucose 118 H (74-99) mg/dL Urine Glucose (UA) (Negative) Urine Opiates Screen (NotDetected) Microbiology - Last 24 Hours (Table) 03/22/24 14:00 Gram Stain - Preliminary Foot - Right Wound Culture - Preliminary Beta Hemolytic Strep Group G Gram Neg Bacilli Assessment and Plan Assessment: Febrile illness possibly related to right lower extremity infection. 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 Number of minutes spent on the visit: 10 Dictation was produced using [employer] dictation software. Please excuse any grammatical, word or spelling errors.
[2024-03-23] MEDS: POTASSIUM CHLORIDE ER 20 MEQ TAB.ER PO SCH (20:38)
[2024-03-24] MEDS: TEMAZEPAM 7.5 MG CAP PO PRN (02:23)
--- NOTE | 2024-03-24 05:38 | P.PN ---
Subjective Progress Note Date: 03/23/24 Patient is a 89-year-old female with a known history of atrial fibrillation on anticoagulation with Eliquis, history of valve replacement, hypertension, hyperlipidemia, diabetes type 2, memory impairment/dementia, osteoarthritis and chronic right lower extremity wound. Patient was brought to ER by her family due to altered mental status. Patient has been lethargic and less active and has not eating well for the past couple days. She was also complaining of lower abdominal pain and lower extremity cramps. Patient also developed fever at home. Otherwise patient could not provide much history due to altered mental status and underlying dementia. Patient's son is at bedside was able to provide history. Per patient does not have any nausea vomiting or diarrhea. No cough or sputum production. No headache or dizziness as per family. Patient was tachycardic and tachypneic and also febrile with Tmax 102.8 on admission. Chest x-ray on admission showed cardiomegaly and diffuse interstitial and vascular opacity. Correlate for CHF with pulmonary vascular congestion. Interstitial pneumonitis or atypical pneumonias would be an alternative consideration. EKG showed atrial fibrillation with rapid ventricular response. CT of the abdomen pelvis showed vertebral compression collapse of T12 with 50% height loss. Asymmetric trabecular thickening and calcification lateral left breast recommend further mammographic workup. Asymmetrically enlarged right inguinal and upper right femoral chain lymph nodes measuring up to 2.7 cm probably reactive to some type of upstream inflammation/infection. Sigmoid diverticulosis without acute diverticulitis. CT head showed mild to moderate generalized cerebral atrophy and moderate patchy burden of chronic small vessel ischemic disease. No acute intracranial abnormality seen. Laboratory data showed WBC 18.6, hemoglobin 12.6 and platelets 121 sodium 139 potassium 3.9 chloride 99 bicarb is 31 BUN 39 and creatinine 1.21 and blood sugar 142 alk phos 139 troponin 0.018, 0.047 and 0.045 proBNP 850 Influenza A B RSV and COVID-19 PCR not detected. 03/23/2024 Patient is seen and evaluated in follow-up with son at the bedside currently sitting up in the chair reports to feeling improved and mentation is improved. Patient is maintained on IV antibiotics with infectious disease following and right lower extremity is elevated. Continue with local wound care and have consulted wound care nurse as she had a scheduled appointment in the clinic on 03/24/2024. Patient follows at the wound care center every 2 weeks and reports having done so for the last year and a half. Awaiting repeat cultures to determine appropriate discharge antibiotics. Unsure if patient will require IV versus oral on discharge at this time. Patient is afebrile with no reports of chest pain or shortness of breath. Review of systems: Constitutional: No reports of fatigue, fever, or chills Cardiovascular: No reports of chest pain or palpitations Respiratory: No reports of shortness of breath or cough GI: No reports of nausea, vomiting, or diarrhea : No reports of dysuria or retention Neurovascular: reports of generalized weakness and continued right leg discomf ort All medications have been reviewed PHYSICAL EXAMINATION: Patient is sitting up in the chair. No acute distress., awake alert and oriented x 1-2.. Elderly appearing HEENT: Normocephalic. Neck is supple. Pupils reactive. Nostrils clear. Oral cavity is moist. Neck reveals no JVD, carotid bruits, or thyromegaly. CHEST EXAMINATION: Trachea is central. Symmetrical expansion. Lung lovett clear to auscultation and percussion. CARDIAC: Normal S1, S2 with no gallops. No murmurs ABDOMEN: Soft. Bowel sounds normal. No organomegaly. No abdominal bruits. Extremities: Right lower extremity wound at the hernandez region is wrapped.. With continued swelling although slightly improved. No clubbing or cyanosis Neurologically awake, alert, oriented x 1-2. Patient is able to move all extremities. No gross focal neurological deficit. Diffusely weak Psychiatric: Cooperative. Alert and calm, mentation is improved and baseline per son at the bedside Musculoskeletal: No joint swelling or deformity. Assessment: Acute altered mental status likely metabolic encephalopathy due to right lower extremity infection, present on admission, improved Right lower extremity wound infection with recent cultures growing Enterobacter, Corynebacterium and beta-hemolytic Streptococcus group G Severe sepsis secondary to above Asymmetrically enlarged right inguinal and upper right femoral chain lymph nodes measuring up to 2 point centimeter probably reactive to some type of upstream inflammation/infection. Chronic nonhealing right lower extremity wound follows at the wound care center every 2 weeks in the outpatient setting Atrial fibrillation with rapid ventricular response on admission, currently rate controlled Troponin elevation possible demand ischemia. COPD not in exacerbation Acute kidney injury likely prerenal Chronic atrial fibrillation on anticoagulation with Eliquis Dementia Diabetes type 2 Hypertension Hypokalemia Osteoarthritis Current someday smoker DVT prophylaxis patient is already on Eliquis GI prophylaxis No code Plan: Patient was given IV hydration. Continue with antibiotics in the form of vancomycin and cefepime and wound cultures were sent. Follow-up blood cultures and wound care and ID following and currently awaiting finalized cultures to determine discharge antibiotics. Will consult wound care nurse as patient had a scheduled appointment on 03/24/2024 and appreciate input and recommendations Continue to elevate lower extremities while at rest PT/OT therapy evaluation Continue with home medications and pain management. Continue to follow closely. Discussed with son at bedside. Prognosis is guarded at this time. The impression and plan of care has been dictated by Georgia Iyer, Nurse Practitioner as directed. Dr. Fabienne MD I have performed a history and examination and MDM of this patient, discussed the same with the dictator, and agree with the dictator's assessment and plan as written ,documented as a scribe. Based on total visit time, I have performed more than 50% of the visit. Objective - Vital Signs Vital signs: Vital Signs Temp 98.2 F 03/23/24 07:45 Pulse 58 L 03/23/24 07:45 Resp 16 03/23/24 07:45 BP 90/51 03/23/24 07:45 Pulse Ox 98 03/23/24 07:45 FiO2 Intake & Output 03/22/24 03/23/24 03/23/24 18:59 06:59 18:59 Intake Total 480 Output Total 150 Balance -150 480 Intake: Oral 480 Output: Urine 150 Other: # Voids 3 - Labs CBC & Chem 7: 03/23/24 06:31 03/23/24 06:31 Labs: Abnormal Lab Results - Last 24 Hours (Table) 03/22/24 03/22/24 03/22/24 Range/Units 09:23 14:13 14:18 Potassium (3.5-5.1) mmol/L BUN (7-17) mg/dL Creatinine (0.52-1.04) mg/dL Glucose (74-99) mg/dL Troponin I 0.045 H* (0.000-0.034) ng/mL Urine Glucose (UA) 4+ H (Negative) Urine Opiates Screen Detected H (NotDetected) 03/23/24 Range/Units 06:31 Potassium 3.3 L (3.5-5.1) mmol/L BUN 42 H (7-17) mg/dL Creatinine 1.34 H (0.52-1.04) mg/dL Glucose 118 H (74-99) mg/dL Troponin I (0.000-0.034) ng/mL Urine Glucose (UA) (Negative) Urine Opiates Screen (NotDetected) Microbiology - Last 24 Hours (Table) 03/22/24 14:00 Gram Stain - Preliminary Foot - Right Wound Culture - Preliminary Beta Hemolytic Strep Group G Gram Neg Bacilli
[2024-03-24 06:50] LABS: African American GFR (CKD) 56 (>60 ml/min/1.73 sqM); Anion Gap 0 mmol/L; Blood Urea Nitrogen 37 mg/dL (7-17); Calcium 8.7 mg/dL (8.4-10.2); Carbon Dioxide 23 mmol/L (22-30); Chloride 107 mmol/L (98-107); Glucose 101 mg/dL (74-99); Magnesium 1.9 mg/dL (1.6-2.3); Non-African American GFR(CKD) 49 (>60 ml/min/1.73 sqM); Potassium 3.6 mmol/L (3.5-5.1); Sodium 130 mmol/L (137-145)
[2024-03-24 06:55] LABS: Vancomycin,Random 9.1 ug/mL
[2024-03-24 08:31] LABS: Basophils # (A) 0.05 X 10*3/uL (0.00-0.10); Basophils % (A) 0.7 %; Eosinophils % (A) 1.4 %; HCT 30.7 % (37.2-46.3); HGB 9.9 g/dL (12.0-15.0); Immature Platelet Fraction 5.2 % (1.1-6.1); Lymphocytes # (A) 0.81 X 10*3/uL (0.90-5.00); Lymphocytes % (A) 11.2 %; MCH 31.3 pg (27.0-32.0); MCHC 32.2 g/dL (32.0-37.0); MCV 97.2 FL (80.0-97.0); Mean Platelet Volume 12.1 FL (9.5-12.2); Monocytes # (A) 0.61 X 10*3/uL (0.20-1.00); Monocytes % (A) 8.4 %; NRBC Per 100 WBC 0 X 10*3/uL (0.00-0.01); Neutrophils # (A) 5.63 X 10*3/uL (1.80-7.70); Platelet Count 78 X 10*3/uL (140-440); RBC 3.16 X 10*6/uL (4.10-5.20); RDW 14.8 % (11.5-14.5); WBC 7.22 X 10*3/uL (4.50-10.00)
--- NOTE | 2024-03-24 09:23 | P.PN ---
Subjective Progress Note Date: 03/23/24 Principal diagnosis: Reason for follow-up is right lower extremity wound infection Patient is a 89-year-old female past medical history significant for diabetes mellitus hypertension hyperlipidemia memory impairment COPD atrial fibrillation patient also have a chronic nonhealing wound to the right lower extremity for the patient to follow at [facility] wound care center patient presented to [facility] ER for evaluation of mental status changes and fever concern was for right leg wound infection probably this consultation. On today's evaluation that is 03/23/2024, Patient did have resolution of her fever and is afebrile this morning patient denies having any chest pain shortness of breath or cough, the patient is currently on room air, patient denies any abdominal pain no diarrhea no nausea no vomiting, denies any worsening pain to the right leg wound. Patient white count is down to 12.82 creatinine is 1.34 cultures currently growing gram-negative bacilli and group B strep Objective - Vital Signs Vital signs: Vital Signs Temp 98.2 F 03/23/24 07:45 Pulse 58 L 03/23/24 07:45 Resp 16 03/23/24 07:45 BP 90/51 03/23/24 07:45 Pulse Ox 98 03/23/24 07:45 FiO2 Intake & Output 03/22/24 03/23/24 03/23/24 18:59 06:59 18:59 Intake Total 480 Output Total 150 Balance -150 480 Intake: Oral 480 Output: Urine 150 Other: # Voids 3 - Exam GENERAL DESCRIPTION: An elderly female up in the chair in no distress RESPIRATORY SYSTEM: Unlabored breathing , decreased breath sounds at bases HEART: S1 S2 regular rate and rhythm , ABDOMEN: Soft , no tenderness EXTREMITIES: Right leg wound is currently dressed - Labs CBC & Chem 7: 03/24/24 05:46 03/24/24 05:46 Labs: Abnormal Lab Results - Last 24 Hours (Table) 03/22/24 03/22/24 03/23/24 Range/Units 14:13 14:18 06:31 WBC 12.82 H (4.50-10.00) X 10*3/uL RBC 3.14 L (4.10-5.20) X 10*6/uL Hgb 9.7 L (12.0-15.0) g/dL Hct 30.7 L (37.2-46.3) % MCV 97.8 H (80.0-97.0) FL MCHC 31.6 L (32.0-37.0) g/dL RDW 15.3 H (11.5-14.5) % Plt Count 74 L (140-440) X 10*3/uL Immature Gran # 0.10 H (0.00-0.04) X 10*3/uL Neutrophils # 11.48 H (1.80-7.70) X 10*3/uL Lymphocytes # 0.55 L (0.90-5.00) X 10*3/uL Eosinophils # 0.03 L (0.04-0.35) X 10*3/uL Potassium (3.5-5.1) mmol/L BUN (7-17) mg/dL Creatinine (0.52-1.04) mg/dL Glucose (74-99) mg/dL Urine Glucose (UA) 4+ H (Negative) Urine Opiates Screen Detected H (NotDetected) 03/23/24 Range/Units 06:31 WBC (4.50-10.00) X 10*3/uL RBC (4.10-5.20) X 10*6/uL Hgb (12.0-15.0) g/dL Hct (37.2-46.3) % MCV (80.0-97.0) FL MCHC (32.0-37.0) g/dL RDW (11.5-14.5) % Plt Count (140-440) X 10*3/uL Immature Gran # (0.00-0.04) X 10*3/uL Neutrophils # (1.80-7.70) X 10*3/uL Lymphocytes # (0.90-5.00) X 10*3/uL Eosinophils # (0.04-0.35) X 10*3/uL Potassium 3.3 L (3.5-5.1) mmol/L BUN 42 H (7-17) mg/dL Creatinine 1.34 H (0.52-1.04) mg/dL Glucose 118 H (74-99) mg/dL Urine Glucose (UA) (Negative) Urine Opiates Screen (NotDetected) Microbiology - Last 24 Hours (Table) 03/22/24 14:00 Gram Stain - Preliminary Foot - Right Wound Culture - Preliminary Beta Hemolytic Strep Group G Gram Neg Bacilli Assessment and Plan (1) Cellulitis of right leg Current Visit: No Status: Acute Code(s): L03.115 - CELLULITIS OF RIGHT LOWER LIMB SNOMED Code(s): 58710728396075085 (2) Leg wound, right Current Visit: No Status: Acute Code(s): S81.801A - UNSPECIFIED OPEN WOUND, RIGHT LOWER LEG, INITIAL ENCOUNTER SNOMED Code(s): 38001078000099725 (3) Sepsis Current Visit: No Status: Acute Code(s): A41.9 - SEPSIS, UNSPECIFIED ORGAN ISM SNOMED Code(s): 32691171 Plan: 1patient presented to hospital with sepsis in this patient did have fever tachycardia elevated white count source is likely right leg wound infection with secondary cellulitis and there is also evidence of enlarged right inguinal lymph node on the CT patient recently did have a outpatient culture done on 03/10/2024 and they did grew strep group G and Enterobacter however is not very clear if the patient has severe and antibiotic for the same and more likely dealing with those pathogen. 2local culture has been obtained which are currently growing strep and Gram are negative 3patient is currently covered with cefepime and local wound care with the Santyl followed by moist dressing discharge antibiotic on the basis of final culture Son at the bedside multiple question concern answered Dictation was produced using [employer] dictation software. please excuse any grammatical, word or spelling errors. Time with Patient: Less than 30
[2024-03-24] MEDS ORDERED: ZINC OXIDE PASTE (Z-GUARD) 1 APPLIC TOPICAL PRN (10:39)
--- NOTE | 2024-03-24 11:26 | P.PN ---
Subjective Progress Note Date: 03/24/24 This is an 89-year-old female patient who follows with Dr. Quesada as her primary care provider. She has a history of chronic obstructive pulmonary disease, atrial fibrillation anticoagulated with Eliquis, diabetes mellitus, hyperlipidemia, hypertension, dementia, osteoarthritis, previous transcatheter aortic valve replacement. She also has a nonhealing leg ulceration on the lower extremity on the right. She follows at the wound care clinic. She resides with her sister. Today she was noted to have altered mental status, generalized weakness, poor appetite brought here to the emergency room. Chest x-ray shows cardiomegaly and diffuse interstitial and vascular opacity. Abdominal CT scan revealed vertebral compression collapse at T12 with 50% height loss. Asymmetrical enlarged right inguinal and upper right femoral chain lymph nodes measuring 2.7. Suspect inflammation/infection. Sigmoid diverticulosis without acute diverticulitis. CT scan of the brain revealed mild to moderate generali zed cerebral atrophy and moderate patchy burden of chronic small vessel ischemic disease. No acute intracranial abnormalities seen. White count 18.6. Hemoglobin 12.6. Platelets 121. Sodium 139. Potassium 3.9. Bicarb 31. BUN 39. Creatinine 1.21. Glucose 142. Troponin 0.018, 0.047, 0.045. proBNP 850. Viral screen negative. She did have a Tmax of 102.8 early this morning. She is seen today in consultation in the emergency department. She is currently awake and alert. Confused at times. Her family is at the bedside provides most of the information. The patient is seen today March 23, 2024 in follow-up on the regular medical floor. She is resting comfortably in bed. Awake and alert in no acute distress. Less confused today compared to yesterday. She is maintaining good O2 saturation in the 90s on 2 L/min per nasal cannula. She remains on vancomycin and cefepime. Right leg cultures are showing beta-hemolytic strep group G, gram-negative bacilli. Count 12.8. Hemoglobin 9.7. Platelets 74,000. Sodium 137. Potassium 3.3. Bicarb 28. BUN 42. Creatinine 1.34. Glucose 118. Anticoagulated with Eliquis. The patient is seen today March 24, 2024 in follow-up on the regular medical floor. She is awake and alert in no acute distress. Sitting up in bed. She denies any shortness of breath, cough or congestion. She is maintaining good O2 saturations in the 90s on room air. She is afebrile. Hemodynamically stable. Right leg wound infection is positive for beta-hemolytic strep group G, gram- negative bacilli. White count 7.2. Hemoglobin 9.9. Platelets 78,000. Sodium 130. Potassium 3.6. Bicarb 23. BUN 37. Creatinine 1.04. Glucose 101. She is continued on vancomycin and cefepime. Anticoagulated with Eliquis. Objective - Vital Signs Vital signs: Vital Signs Temp 98.5 F 03/24/24 07:01 Pulse 75 03/24/24 07:01 Resp 16 03/24/24 07:01 BP 115/67 03/24/24 07:01 Pulse Ox 95 03/24/24 08:51 FiO2 Intake & Output 03/23/24 03/24/24 03/24/24 18:59 06:59 18:59 Intake Total 1020 Output Total 400 350 Balance 620 -350 Weight 65.771 kg Intake: Oral 1020 Output: Urine 400 350 Other: Voiding Method Diaper Diaper External Catheter External Catheter - Exam GENERAL EXAM: Alert, very pleasant 89-year-old female, on room air, in no apparent distress. HEAD: Normocephalic. EYES: Normal reaction of pupils, equal size. NOSE: Clear with pink turbinates. THROAT: No erythema or exudates. NECK: No masses, no JVD. CHEST: No chest wall deformity. LUNGS: Equal air entry with no crackles, wheeze, rhonchi or dullness. CVS: S1 and S2 normal with no audible murmur, regular rhythm. ABDOMEN: No hepatosplenomegaly, normal bowel sounds, no guarding or rigidity. SPINE: No scoliosis or deformity SKIN: No rashes CENTRAL NERVOUS SYSTEM: No focal deficits, tone is normal in all 4 extremities. EXTREMITIES: Right lower extremity wound with slough tissue and surrounding edema with minimal redness. Peripheral pulses are intact. - Labs CBC & Chem 7: 03/24/24 05:46 03/24/24 05:46 Labs: Abnormal Lab Results - Last 24 Hours (Table) 03/23/24 03/24/24 03/24/24 Range/Units 06:31 05:46 05:46 WBC 12.82 H (4.50-10.00) X 10*3/uL RBC 3.14 L 3.16 L (4.10-5.20) X 10*6/uL Hgb 9.7 L 9.9 L (12.0-15.0) g/dL Hct 30.7 L 30.7 L (37.2-46.3) % MCV 97.8 H 97.2 H (80.0-97.0) FL MCHC 31.6 L (32.0-37.0) g/dL RDW 15.3 H 14.8 H (11.5-14.5) % Plt Count 74 L 78 L (140-440) X 10*3/uL Immature Gran # 0.10 H (0.00-0.04) X 10*3/uL Neutrophils # 11.48 H (1.80-7.70) X 10*3/uL Lymphocytes # 0.55 L 0.81 L (0.90-5.00) X 10*3/uL Eosinophils # 0.03 L (0.04-0.35) X 10*3/uL Sodium 130 L (137-145) mmol/L BUN 37 H (7-17) mg/dL Glucose 101 H (74-99) mg/dL Microbiology - Last 24 Hours (Table) 03/22/24 14:18 Urine Culture - Final Urine,Clean Catch 03/21/24 22:42 Blood Culture - Preliminary Blood 03/22/24 14:00 Gram Stain - Preliminary Foot - Right Wound Culture - Preliminary Beta Hemolytic Strep Group G Gram Neg Bacilli Assessment and Plan Assessment: Febrile illness possibly related to right lower extremity infection. 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 Chronic obstructive pulmonary disease, inactive and stable Chronic tobacco dependence Atrial fibrillation, anticoagulated with Eliquis History of dementia Diabetes mellitus Hypertension Hyperlipidemia Osteoarthritis Plan: The patient was seen and evaluated Labs and medications reviewed Continue cefepime and vancomycin Anticoagulated with Eliquis More awake and alert Stable and on room air DNR CODE STATUS Patient was seen independently by the pulmonary nurse practitioner addressing pulmonary issues I have personally seen and examined the patient, performed the documentation and the assessment and plan as written. Number of minutes spent on the visit: 24 Dictation was produced using [employer] dictation software. Please excuse any grammatical, word or spelling errors.
[2024-03-24] MEDS ORDERED: VANCOMYCIN 1,250 MG in SODIUM CHLORIDE 0.9% 250 ML IVPB ONE (11:45)
[2024-03-24] MEDS: TIMOLOL 0.5% OPHTH DROPS 5 ML BTL LEFT EYE SCH (12:17)
[2024-03-24] MEDS: VANCOMYCIN 1,250 MG in SODIUM CHLORIDE 0.9% 250 ML IVPB ONE (12:18)
--- NOTE | 2024-03-24 14:45 | P.PN ---
Subjective Progress Note Date: 03/24/24 Patient is a 89-year-old female with a known history of atrial fibrillation on anticoagulation with Eliquis, history of valve replacement, hypertension, hyperlipidemia, diabetes type 2, memory impairment/dementia, osteoarthritis and chronic right lower extremity wound. Patient was brought to ER by her family due to altered mental status. Patient has been lethargic and less active and has not eating well for the past couple days. She was also complaining of lower abdominal pain and lower extremity cramps. Patient also developed fever at home. Otherwise patient could not provide much history due to altered mental status and underlying dementia. Patient's son is at bedside was able to provide history. Per patient does not have any nausea vomiting or diarrhea. No cough or sputum production. No headache or dizziness as per family. Patient was tachycardic and tachypneic and also febrile with Tmax 102.8 on admission. Chest x-ray on admission showed cardiomegaly and diffuse interstitial and vascular opacity. Correlate for CHF with pulmonary vascular congestion. Interstitial pneumonitis or atypical pneumonias would be an alternative consideration. EKG showed atrial fibrillation with rapid ventricular response. CT of the abdomen pelvis showed vertebral compression collapse of T12 with 50% height loss. Asymmetric trabecular thickening and calcification lateral left breast recommend further mammographic workup. Asymmetrically enlarged right inguinal and upper right femoral chain lymph nodes measuring up to 2.7 cm probably reactive to some type of upstream inflammation/infection. Sigmoid diverticulosis without acute diverticulitis. CT head showed mild to moderate generalized cerebral atrophy and moderate patchy burden of chronic small vessel ischemic disease. No acute intracranial abnormality seen. Laboratory data showed WBC 18.6, hemoglobin 12.6 and platelets 121 sodium 139 potassium 3.9 chloride 99 bicarb is 31 BUN 39 and creatinine 1.21 and blood sugar 142 alk phos 139 troponin 0.018, 0.047 and 0.045 proBNP 850 Influenza A B RSV and COVID-19 PCR not detected. 03/23/2024 Patient is seen and evaluated in follow-up with son at the bedside currently sitting up in the chair reports to feeling improved and mentation is improved. Patient is maintained on IV antibiotics with infectious disease following and right lower extremity is elevated. Continue with local wound care and have consulted wound care nurse as she had a scheduled appointment in the clinic on 03/24/2024. Patient follows at the wound care center every 2 weeks and reports having done so for the last year and a half. Awaiting repeat cultures to determine appropriate discharge antibiotics. Unsure if patient will require IV versus oral on discharge at this time. Patient is afebrile with no reports of chest pain or shortness of breath. 03/24/2024 Patient is seen and evaluated in follow-up today with no acute overnight issues noted. Patient continues with local wound care with infectious disease following maintained on antibiotics while awaiting for cultures to finalize. Urine cultures finalized and was negative. Patient denies having any pain, frequency with urination. Awaiting right lower extremity wound cultures. Also awaiting wound care nurse for evaluation. Patient is afebrile and denies any chest pain. Patient does report a cough and there is some noted expiratory whe ezing on exam. Will obtain a chest x-ray and follow-up for further evaluation. Patient reports she did have a bowel movement and is urinating with no difficulties. Review of systems: Constitutional: No reports of fatigue, fever, or chills Cardiovascular: No reports of chest pain or palpitations Respiratory: No reports of shortness of breath reports occasional cough GI: No reports of nausea, vomiting, or diarrhea : No reports of dysuria or retention Neurovascular: reports of generalized weakness and continued right leg discomfort All medications have been reviewed PHYSICAL EXAMINATION: Patient is lying in bed. No acute distress., awake alert and oriented x 1-2.. Elderly appearing HEENT: Normocephalic. Neck is supple. Pupils reactive. Nostrils clear. Oral cavity is moist. Neck reveals no JVD, carotid bruits, or thyromegaly. CHEST EXAMINATION: Trachea is central. Symmetrical expansion. Diminished breath sounds bilaterally with some faint expiratory wheezing noted CARDIAC: Normal S1, S2 with no gallops. No murmurs ABDOMEN: Soft. Bowel sounds normal. No organomegaly. No abdominal bruits. Extremities: Right lower extremity wound at the hernandez region is wrapped.. With continued swelling although slightly improved. No clubbing or cyanosis Neurologically awake, alert, oriented x 1-2. Patient is able to move all extremities. No gross focal neurological deficit. Diffusely weak Psychiatric: Cooperative. Alert and calm, mentation is improved and baseline per son at the bedside Musculoskeletal: No joint swelling or deformity. Assessment: Acute altered mental status likely metabolic encephalopathy due to right lower extremity infection, present on admission, improved Right lower extremity wound infection with recent cultures growing Enterobacter, Corynebacterium and beta-hemolytic Streptococcus group G Severe sepsis secondary to above Asymmetrically enlarged right inguinal and upper right femoral chain lymph nodes measuring up to 2 centimeter probably reactive to some type of upstream inflammation/infection. Chronic nonhealing right lower extremity wound follows at the wound care center every 2 weeks in the outpatient setting Atrial fibrillation with rapid ventricular response on admission, currently rate controlled Troponin elevation possible demand ischemia. COPD not in exacerbation Acute kidney injury likely prerenal Chronic atrial fibrillation on anticoagulation with Eliquis Dementia Diabetes type 2 Hypertension Hypokalemia Osteoarthritis Current someday smoker DVT prophylaxis patient is already on Eliquis GI prophylaxis No code Plan: Patient was given IV hydration. Continue with antibiotics in the form of v ancomycin and cefepime and wound cultures were sent. Follow-up blood cultures are negative and urine culture is negative. wound care and ID following and currently awaiting finalized cultures to determine discharge antibiotics. Will consult wound care nurse as patient had a scheduled appointment for today and appreciate input and recommendations Continue to elevate lower extremities while at rest Patient was having a cough and reports to feeling some congestion. Will discontinue IV fluids and obtain a chest x-ray. PT/OT therapy evaluation although patient and family reports she will be ret urning home. Continue with home medications and pain management. Continue to follow closely. Prognosis is guarded at this time. The impression and plan of care has been dictated by Georgia Iyer, Nurse Practitioner as directed. Dr. Fabienne MD I have performed a history and examination and MDM of this patient, discussed the same with the dictator, and agree with the dictator's assessment and plan as written ,documented as a scribe. Based on total visit time, I have performed more than 50% of the visit. Objective - Vital Signs Vital signs: Vital Signs Temp 98.5 F 03/24/24 07:01 Pulse 75 03/24/24 07:01 Resp 16 03/24/24 07:01 BP 115/67 03/24/24 07:01 Pulse Ox 95 03/24/24 08:51 FiO2 Intake & Output 03/23/24 03/24/24 03/24/24 18:59 06:59 18:59 Intake Total 1020 Output Total 400 350 Balance 620 -350 Weight 65.771 kg Intake: Oral 1020 Output: Urine 400 350 Other: Voiding Method Diaper Diaper External Catheter External Catheter - Labs CBC & Chem 7: 03/24/24 05:46 03/24/24 05:46 Labs: Abnormal Lab Results - Last 24 Hours (Table) 03/23/24 03/24/24 03/24/24 Range/Units 06:31 05:46 05:46 WBC 12.82 H (4.50-10.00) X 10*3/uL RBC 3.14 L 3.16 L (4.10-5.20) X 10*6/uL Hgb 9.7 L 9.9 L (12.0-15.0) g/dL Hct 30.7 L 30.7 L (37.2-46.3) % MCV 97.8 H 97.2 H (80.0-97.0) FL MCHC 31.6 L (32.0-37.0) g/dL RDW 15.3 H 14.8 H (11.5-14.5) % Plt Count 74 L 78 L (140-440) X 10*3/uL Immature Gran # 0.10 H (0.00-0.04) X 10*3/uL Neutrophils # 11.48 H (1.80-7.70) X 10*3/uL Lymphocytes # 0.55 L 0.81 L (0.90-5.00) X 10*3/uL Eosinophils # 0.03 L (0.04-0.35) X 10*3/uL Sodium 130 L (137-145) mmol/L BUN 37 H (7-17) mg/dL Glucose 101 H (74-99) mg/dL Microbiology - Last 24 Hours (Table) 03/22/24 14:18 Urine Culture - Final Urine,Clean Catch 03/21/24 22:42 Blood Culture - Preliminary Blood 03/22/24 14:00 Gram Stain - Preliminary Foot - Right Wound Culture - Preliminary Beta Hemolytic Strep Group G Gram Neg Bacilli
--- NOTE | 2024-03-24 15:01 | XR ---
EXAMINATION TYPE: XR chest 1V portable DATE OF EXAM: 03/24/2024 Comparison: 03/21/2024 Clinical History: 89 year-old female shortness of breath Findings: Heart mildly enlarged. Hyperinflation. Diffuse interstitial/vascular density is present though improv ed from prior. Severe degenerative change of the shoulders. No sizable pleural effusion. Endovascular aortic valve replacement. Impression: COPD and residual mild CHF with pulmonary vascular congestion, considerably improved from 03/21/2024. [facility], , 03/24/2024 2:58 PM
--- NOTE | 2024-03-24 23:28 | P.PN ---
Subjective Progress Note Date: 03/24/24 Principal diagnosis: Reason for follow-up is right lower extremity wound infection Patient is a 89-year-old female past medical history significant for diabetes mellitus hypertension hyperlipidemia memory impairment COPD atrial fibrillation patient also have a chronic nonhealing wound to the right lower extremity for the patient to follow at [facility] wound care center patient presented to [facility] ER for evaluation of mental status changes and fever concern was for right leg wound infection probably this consultation. On today's evaluation that is 03/24/2024,the patient denies any fever or any chills, patient is breathing comfortably on room air, the patient denies chest pain shortness of breath and no significant cough, patient denies abdominal quynh n, no nausea vomiting or diarrhea. Patient denies pain to the right lower extremity wound. Patient white normalized to 7.22 creatinine 1.04 local culture finalized with Enterobacter and beta-hemolytic strep Objective - Vital Signs Vital signs: Vital Signs Temp 98.1 F 03/24/24 13:20 Pulse 73 03/24/24 13:20 Resp 18 03/24/24 13:20 BP 123/66 03/24/24 13:20 Pulse Ox 98 03/24/24 13:20 FiO2 Intake & Output 03/23/24 03/24/24 03/24/24 18:59 06:59 18:59 Intake Total 1020 Output Total 400 350 Balance 620 -350 Weight 65.771 kg Intake: Oral 1020 Output: Urine 400 350 Other: Voiding Method Diaper Diaper External Catheter External Catheter - Exam GENERAL DESCRIPTION: An elderly female up in the chair in no distress RESPIRATORY SYSTEM: Unlabored breathing , decreased breath sounds at bases HEART: S1 S2 regular rate and rhythm , ABDOMEN: Soft , no tenderness EXTREMITIES: Right leg wound is currently dressed - Labs CBC & Chem 7: 03/24/24 05:46 03/24/24 05:46 Labs: Abnormal Lab Results - Last 24 Hours (Table) 03/24/24 03/24/24 Range/Units 05:46 05:46 RBC 3.16 L (4.10-5.20) X 10*6/uL Hgb 9.9 L (12.0-15.0) g/dL Hct 30.7 L (37.2-46.3) % MCV 97.2 H (80.0-97.0) FL RDW 14.8 H (11.5-14.5) % Plt Count 78 L (140-440) X 10*3/uL Lymphocytes # 0.81 L (0.90-5.00) X 10*3/uL Sodium 130 L (137-145) mmol/L BUN 37 H (7-17) mg/dL Glucose 101 H (74-99) mg/dL Microbiology - Last 24 Hours (Table) 03/21/24 22:42 Blood Culture - Preliminary Blood 03/22/24 14:00 Gram Stain - Preliminary Foot - Right Wound Culture - Preliminary Beta Hemolytic Strep Group G Enterobacter cloacae 03/22/24 14:18 Urine Culture - Final Urine,Clean Catch Assessment and Plan (1) Cellulitis of right leg Current Visit: No Status: Acute Code(s): L03.115 - CELLULITIS OF RIGHT LOWER LIMB SNOMED Code(s): 09083442005735661 (2) Leg wound, right Current Visit: No Status: Acute Code(s): S81.801A - UNSPECIFIED OPEN WOUND, RIGHT LOWER LEG, INITIAL ENCOUNTER SNOMED Code(s): 55290307593825283 (3) Sepsis Current Visit: No Status: Acute Code(s): A41.9 - SEPSIS, UNSPECIFIED ORGANISM SNOMED Code(s): 48005539 Plan: 1patient presented to hospital with sepsis in this patient did have fever tachycardia elevated white count source is likely right leg wound infection with secondary cellulitis and there is also evidence of enlarged right inguinal lymph node on the CT patient recently did have a outpatient culture done on 03/10/2024 and they did grew strep group G and Enterobacter however is not very clear if the patient has severe and antibiotic for the same and more likely dealing with those pathogen. 2local culture has been obtained which are currently growing strep and Enterobacter 3patient to continue with the cefepime however patient will be able to finish therapy with oral Cipro and Keflex x 2 weeks on discharge and close outpatient follow-up Dictation was produced using [employer] software. please excuse any grammatical, word or spelling errors. Time with Patient: Less than 30
[2024-03-25] MEDS: FUROSEMIDE 10 MG/ML 2 ML VIAL IV ONE (08:28)
--- NOTE | 2024-03-25 12:13 | P.PN ---
Subjective Progress Note Date: 03/25/24 This is an 89-year-old female patient who follows with Dr. Quesada as her primary care provider. She has a history of chronic obstructive pulmonary disease, atrial fibrillation anticoagulated with Eliquis, diabetes mellitus, hyperlipidemia, hypertension, dementia, osteoarthritis, previous transcatheter aortic valve replacement. She also has a nonhealing leg ulceration on the lower extremity on the right. She follows at the wound care clinic. She resides with her sister. Today she was noted to have altered mental status, generalized weakness, poor appetite brought here to the emergency room. Chest x-ray shows cardiomegaly and diffuse interstitial and vascular opacity. Abdominal CT scan revealed vertebral compression collapse at T12 with 50% height loss. Asymmetrical enlarged right inguinal and upper right femoral chain lymph nodes measuring 2.7. Suspect inflammation/infection. Sigmoid diverticulosis without acute diverticulitis. CT scan of the brain revealed mild to moderate generali zed cerebral atrophy and moderate patchy burden of chronic small vessel ischemic disease. No acute intracranial abnormalities seen. White count 18.6. Hemoglobin 12.6. Platelets 121. Sodium 139. Potassium 3.9. Bicarb 31. BUN 39. Creatinine 1.21. Glucose 142. Troponin 0.018, 0.047, 0.045. proBNP 850. Viral screen negative. She did have a Tmax of 102.8 early this morning. She is seen today in consultation in the emergency department. She is currently awake and alert. Confused at times. Her family is at the bedside provides most of the information. The patient is seen today March 23, 2024 in follow-up on the regular medical floor. She is resting comfortably in bed. Awake and alert in no acute distress. Less confused today compared to yesterday. She is maintaining good O2 saturation in the 90s on 2 L/min per nasal cannula. She remains on vancomycin and cefepime. Right leg cultures are showing beta-hemolytic strep group G, gram-negative bacilli. Count 12.8. Hemoglobin 9.7. Platelets 74,000. Sodium 137. Potassium 3.3. Bicarb 28. BUN 42. Creatinine 1.34. Glucose 118. Anticoagulated with Eliquis. The patient is seen today March 24, 2024 in follow-up on the regular medical floor. She is awake and alert in no acute distress. Sitting up in bed. She denies any shortness of breath, cough or congestion. She is maintaining good O2 saturations in the 90s on room air. She is afebrile. Hemodynamically stable. Right leg wound infection is positive for beta-hemolytic strep group G, gram- negative bacilli. White count 7.2. Hemoglobin 9.9. Platelets 78,000. Sodium 130. Potassium 3.6. Bicarb 23. BUN 37. Creatinine 1.04. Glucose 101. She is continued on vancomycin and cefepime. Anticoagulated with Eliquis. The patient is seen today March 25, 2024 in follow-up on the regular medical floor. She is currently resting in bed. Awake and alert in no acute distress. Denies any worsening shortness of breath, cough or congestion. She remains on vancomycin and cefepime. Anticoagulated with Eliquis. Continues to receive Lasix. Right leg wound culture positive for beta-hemolytic strep group G, Enterobacter cloacae, Enterobacter aerogenes. Random vancomycin level 10.9. Objective - Vital Signs Vital signs: Vital Signs Temp 97.9 F 03/25/24 07:00 Pulse 93 03/25/24 07:00 Resp 16 03/25/24 07:00 BP 151/78 03/25/24 07:00 Pulse Ox 97 03/25/24 07:00 FiO2 Intake & Output 03/24/24 03/25/24 03/25/24 18:59 06:59 18:59 Intake Total 540 480 Output Total 300 Balance 540 -300 480 Intake: Oral 540 480 Output: Urine 300 Other: Voiding Method Toilet Toilet Toilet Diaper Diaper Diaper External Catheter # Voids 1 # Bowel Movements 1 - Exam GENERAL EXAM: Alert, 89-year-old female, sitting up in bed, on room air, in no apparent distress. HEAD: Normocephalic. EYES: Normal reaction of pupils, equal size. NOSE: Clear with pink turbinates. THROAT: No erythema or exudates. NECK: No masses, no JVD. CHEST: No chest wall deformity. LUNGS: Equal air entry with no crackles, wheeze, rhonchi or dullness. CVS: S1 and S2 normal with no audible murmur, regular rhythm. ABDOMEN: No hepatosplenomegaly, normal bowel sounds, no guarding or rigidity. SPINE: No scoliosis or deformity SKIN: No rashes CENTRAL NERVOUS SYSTEM: No focal deficits, tone is normal in all 4 extremities. EXTREMITIES: Right lower extremity with dressing in place. Peripheral pulses are intact. - Labs CBC & Chem 7: 03/24/24 05:46 03/24/24 05:46 Labs: Microbiology - Last 24 Hours (Table) 03/22/24 14:00 Gram Stain - Final Foot - Right Wound Culture - Final Beta Hemolytic Strep Group G Enterobacter cloacae Enterobacter aerogenes 03/21/24 22:42 Blood Culture - Preliminary Blood Assessment and Plan Assessment: Febrile illness possibly related to right lower extremity infection. 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 Number of minutes spent on the visit: 22 Dictation was produced using [employer] dictation software. Please excuse any gramm atical, word or spelling errors.
--- NOTE | 2024-03-25 16:00 | P.PN ---
Subjective Progress Note Date: 03/25/24 Principal diagnosis: Reason for follow-up is right lower extremity wound infection Patient is a 89-year-old female past medical history significant for diabetes mellitus hypertension hyperlipidemia memory impairment COPD atrial fibrillation patient also have a chronic nonhealing wound to the right lower extremity for the patient to follow at [facility] wound care center patient presented to [facility] ER for evaluation of mental status changes and fever concern was for right leg wound infection probably this consultation. On today's evaluation that is 03/25/2024,the patient remains to be afebrile, patient is on room air not requiring supplemental oxygen and denies any shortness of breath no chest pain or cough.Patient denies having any nausea or vomiting, no abdominal pain and no diarrhea has been reported, denies any worsening pain to the right leg wound. No new lab has been obtained today local culture positive for group B strep Enterobacter Objective - Vital Signs Vital signs: Vital Signs Temp 97.9 F 03/25/24 07:00 Pulse 93 03/25/24 07:00 Resp 16 03/25/24 07:00 BP 151/78 03/25/24 07:00 Pulse Ox 97 03/25/24 07:00 FiO2 Intake & Output 03/24/24 03/25/24 03/25/24 18:59 06:59 18:59 Intake Total 540 480 Output Total 300 Balance 540 -300 480 Intake: Oral 540 480 Output: Urine 300 Other: Voiding Method Toilet Toilet Toilet Diaper Diaper Diaper External Catheter # Voids 1 # Bowel Movements 1 - Exam GENERAL DESCRIPTION: An elderly female up in the chair in no distress RESPIRATORY SYSTEM: Unlabored breathing , decreased breath sounds at bases HEART: S1 S2 regular rate and rhythm , ABDOMEN: Soft , no tenderness EXTREMITIES: Right leg wound base looks clean surrounding redness has decreased - Labs CBC & Chem 7: 03/24/24 05:46 03/24/24 05:46 Labs: Microbiology - Last 24 Hours (Table) 03/21/24 22:42 Blood Culture - Preliminary Blood 03/22/24 14:00 Gram Stain - Preliminary Foot - Right Wound Culture - Preliminary Beta Hemolytic Strep Group G Enterobacter cloacae Assessment and Plan (1) Cellulitis of right leg Current Visit: No Status: Acute Code(s): L03.115 - CELLULITIS OF RIGHT LOWER LIMB SNOMED Code(s): 79681244350282468 (2) Leg wound, right Current Visit: No Status: Acute Code(s): S81.801A - UNSPECIFIED OPEN WOUND, RIGHT LOWER LEG, INITIAL ENCOUNTER SNOMED Code(s): 11001773619816216 (3) Sepsis Current Visit: No Status: Acute Code(s): A41.9 - SEPSIS, UNSPECIFIED ORGANISM SNOMED Code(s): 01423564 Plan: 1patient presented to hospital with sepsis in this patient did have fever tachycardia elevated white count source is likely right leg wound infection with secondary cellulitis and there is also evidence of enlarged right inguinal lymph node on the CT patient recently did have a outpatient culture done on 03/10/2024 and they did grew strep group G and Enterobacter however is not very clear if the patient has severe and antibiotic for the same and more likely dealing with those pathogen. 2local culture has been obtained which are currently growing strep and Enterobacter 3patient to continue with the cefepime while inpatient however patient will be able to finish therapy with oral Cipro and Keflex x 2 weeks on discharge this was discussed with [employer] for admitting team as well as with the family local wound care with the [facility] and follow-up with the wound care center. Discussed with the family at the bedside Dictation was produced using [employer] dictation software. please excuse any grammatical, word or spelling errors. Time with Patient: Less than 30
[2024-03-25] MEDS: COLLAGENASE 250 UNIT/GM OINTMENT 30 GM TUBE TOPICAL SCH (18:22)
--- NOTE | 2024-03-26 00:47 | P.PN ---
Subjective Progress Note Date: 03/25/24 Patient is a 89-year-old female with a known history of atrial fibrillation on anticoagulation with Eliquis, history of valve replacement, hypertension, hyperlipidemia, diabetes type 2, memory impairment/dementia, osteoarthritis and chronic right lower extremity wound. Patient was brought to ER by her family due to altered mental status. Patient has been lethargic and less active and has not eating well for the past couple days. She was also complaining of lower abdominal pain and lower extremity cramps. Patient also developed fever at home. Otherwise patient could not provide much history due to altered mental status and underlying dementia. Patient's son is at bedside was able to provide history. Per patient does not have any nausea vomiting or diarrhea. No cough or sputum production. No headache or dizziness as per family. Patient was tachycardic and tachypneic and also febrile with Tmax 102.8 on admission. Chest x-ray on admission showed cardiomegaly and diffuse interstitial and vascular opacity. Correlate for CHF with pulmonary vascular congestion. Interstitial pneumonitis or atypical pneumonias would be an alternative consideration. EKG showed atrial fibrillation with rapid ventricular response. CT of the abdomen pelvis showed vertebral compression collapse of T12 with 50% height loss. Asymmetric trabecular thickening and calcification lateral left breast recommend further mammographic workup. Asymmetrically enlarged right inguinal and upper right femoral chain lymph nodes measuring up to 2.7 cm probably reactive to some type of upstream inflammation/infection. Sigmoid diverticulosis without acute diverticulitis. CT head showed mild to moderate generalized cerebral atrophy and moderate patchy burden of chronic small vessel ischemic disease. No acute intracranial abnormality seen. Laboratory data showed WBC 18.6, hemoglobin 12.6 and platelets 121 sodium 139 potassium 3.9 chloride 99 bicarb is 31 BUN 39 and creatinine 1.21 and blood sugar 142 alk phos 139 troponin 0.018, 0.047 and 0.045 proBNP 850 Influenza A B RSV and COVID-19 PCR not detected. 03/23/2024 Patient is seen and evaluated in follow-up with son at the bedside currently sitting up in the chair reports to feeling improved and mentation is improved. Patient is maintained on IV antibiotics with infectious disease following and right lower extremity is elevated. Continue with local wound care and have consulted wound care nurse as she had a scheduled appointment in the clinic on 03/24/2024. Patient follows at the wound care center every 2 weeks and reports having done so for the last year and a half. Awaiting repeat cultures to determine appropriate discharge antibiotics. Unsure if patient will require IV versus oral on discharge at this time. Patient is afebrile with no reports of chest pain or shortness of breath. 03/24/2024 Patient is seen and evaluated in follow-up today with no acute overnight issues noted. Patient continues with local wound care with infectious disease following maintained on antibiotics while awaiting for cultures to finalize. Urine cultures finalized and was negative. Patient denies having any pain, frequency with urination. Awaiting right lower extremity wound cultures. Also awaiting wound care nurse for evaluation. Patient is afebrile and denies any chest pain. Patient does report a cough and there is some noted expiratory whe ezing on exam. Will obtain a chest x-ray and follow-up for further evaluation. Patient reports she did have a bowel movement and is urinating with no difficulties. 03/25/2024 Patient is seen in follow-up today reporting she feels improved and inquiring about going home. Patient's cultures have finalized and patient will be going on Cipro and Keflex on discharge for 2-week course per ID recommendations. Awaiting wound care consult evaluation and will continue with Medihoney/Santyl to the right lower extremity with a nonadherent gauze and Kerlix with daily dressing changes. Patient has been instructed to continue to elevate lower extremity while at rest and will continue this regimen. Patient to follow-up with the wound care center in the outpatient setting on discharge. Patient rikki luated by physical therapy recommending rehab and family would like her to go to [facility]. Insurance authorization was submitted and pending at this time. Review of systems: Constitutional: No reports of fatigue, fever, or chills Cardiovascular: No reports of chest pain or palpitations Respiratory: No reports of shortness of breath reports occasional cough GI: No reports of nausea, vomiting, or diarrhea : No reports of dysuria or retention Neurovascular: reports of generalized weakness and continued right leg discomfort All medications have been reviewed PHYSICAL EXAMINATION: Patient is lying in bed. No acute distress., awake alert and oriented x 1-2.. Elderly appearing HEENT: Normocephalic. Neck is supple. Pupils reactive. Nostrils clear. Oral cavity is moist. Neck reveals no JVD, carotid bruits, or thyromegaly. CHEST EXAMINATION: Trachea is central. Symmetrical expansion. Diminished breath sounds bilaterally with some faint expiratory wheezing noted CARDIAC: Normal S1, S2 with no gallops. No murmurs ABDOMEN: Soft. Bowel sounds normal. No organomegaly. No abdominal bruits. Extremities: Right lower extremity wound at the hernandez region is wrapped.. With continued swelling although slightly improved. No clubbing or cyanosis Neurologically awake, alert, oriented x 1-2. Patient is able to move all extremities. No gross focal neurological deficit. Diffusely weak Psychiatric: Cooperative. Alert and calm, mentation is improved and baseline per son at the bedside Musculoskeletal: No joint swelling or deformity. Assessment: Acute altered mental status likely metabolic encephalopathy due to right lower extremity infection, present on admission, improved Right lower extremity wound infection with recent cultures growing Enterobacter, Corynebacterium and beta-hemolytic Streptococcus group G Severe sepsis secondary to above Asymmetrically enlarged right inguinal and upper right femoral chain lymph nodes measuring up to 2 centimeter probably reactive to some type of upstream inflammation/infection. Chronic nonhealing right lower extremity wound follows at the wound care center every 2 weeks in the outpatient setting Atrial fibrillation with rapid ventricular response on admission, currently rate controlled Troponin elevation possible demand ischemia. COPD not in exacerbation Acute kidney injury likely prerenal Chronic atrial fibrillation on anticoagulation with Eliquis Dementia Diabetes type 2 Hypertension Hypokalemia Osteoarthritis Current someday smoker DVT prophylaxis patient is already on Eliquis GI prophylaxis No code Plan: Patient was given IV hydration. Continue with antibiotics in the form of vancomycin and cefepime and wound cultures were sent and finalized as Enterobacter. Follow-up blood cultures are negative and urine culture is negative. wound care and ID following and will continue Keflex and Cipro on discharge for 2-week course per ID recommendations.. Awaiting wound care nurse evaluation. If not available patient to follow-up with the wound care center outpatient and continue with Medihoney/Santyl to the right lower extremity with a nonadherent gauze and Kerlix per ID recommendations. Continue to elevate lower extremities while at rest PT/OT therapy has evaluated the patient recommending rehab and initially family were reluctant although would like her to go to [facility] for some strength and mobility prior to returning home. Case management following and has submitted for insurance authorization which is currently pending. Patient is able to be accepted at [facility] on Thursday if insurance authorization is obtained. Possible discharge planning in the next 24 hours The impression and plan of care has been dictated by Georgia Iyer, Nurse Practitioner as directed. Dr. Fabienne MD I have performed a history and examination and MDM of this patient, discussed the same with the dictator, and agree with the dictator's assessment and plan as written ,documented as a scribe. Based on total visit time, I have performed more than 50% of the visit. Objective - Vital Signs Vital signs: Vital Signs Temp 97.9 F 03/25/24 07:00 Pulse 93 03/25/24 07:00 Resp 16 03/25/24 07:00 BP 151/78 03/25/24 07:00 Pulse Ox 97 03/25/24 07:00 FiO2 Intake & Output 03/24/24 03/25/24 03/25/24 18:59 06:59 18:59 Intake Total 540 480 Output Total 300 Balance 540 -300 480 Intake: Oral 540 480 Output: Urine 300 Other: Voiding Method Toilet Toilet Toilet Diaper Diaper Diaper External Catheter # Voids 1 # Bowel Movements 1 - Labs CBC & Chem 7: 03/24/24 05:46 03/24/24 05:46 Labs: Microbiology - Last 24 Hours (Table) 03/21/24 22:42 Blood Culture - Preliminary Blood 03/22/24 14:00 Gram Stain - Preliminary Foot - Right Wound Culture - Preliminary Beta Hemolytic Strep Group G Enterobacter cloacae
[2024-03-26 07:43] VITALS: BP 141/71; PULSE 94; RESP 16; TEMP 98
--- NOTE | 2024-03-26 10:33 | P.DS ---
Providers Date of admission: 03/22/24 00:23 a Expected date of discharge: 03/25/24 Attending physician: Cheryle Ramos Consults: 03/22/24 08:44 Consult Physician Routine Consulting Provider: Ebony Ornelas Consult Reason/Comments: Wound infection right leg Do you want consulting provider notified?: Yes 03/22/24 11:30 Consult Physician Routine Consulting Provider: George Quesada Consult Reason/Comments: Wound infection / known to patient Do you want consulting provider notified?: Yes Primary care physician: George Quesada Hospital Course: Final diagnosis Acute altered mental status likely metabolic encephalopathy due to right lower extremity infection, present on admission, improved Right lower extremity wound infection with recent cultures growing Enterobacter, Corynebacterium and beta-hemolytic Streptococcus group G, cultures have finalized with Enterobacter Severe sepsis secondary to above Asymmetrically enlarged right inguinal and upper right femoral chain lymph nodes measuring up to 2 centimeter probably reactive to some type of upstream inflammation/infection. Chronic nonhealing right lower extremity wound follows at the wound care center every 2 weeks in the outpatient setting Atrial fibrillation with rapid ventricular response on admission, currently rate controlled Troponin elevation likely demand ischemia. COPD not in exacerbation Acute kidney injury likely prerenal Chronic atrial fibrillation on anticoagulation with Eliquis History of dementia Diabetes type 2 Hypertension Hypokalemia, improved Osteoarthritis Current someday smoker DVT prophylaxis patient is already on Eliquis GI prophylaxis No code Discharge disposition Patient is being discharged in a stable condition with guarded prognosis to [facility]. Patient will follow-up with Dr. Quesada in the outpatient setting upon discharge. Patient is to continue with oral Cipro and Keflex per ID recommendations for the next 2 weeks. Patient to follow-up with the wound care center as scheduled. Total time taken is greater than 35 minutes. Hospital course This is a 89 year-old female who was recently admitted with altered mentation likely metabolic encephalopathy secondary to a lower extremity cellulitis with failure of outpatient treatment. Patient has chronic right lower extremity wound and follows at the wound care center every 2 weeks and has been receiving treatment for over a year and a half. Patient having increasing redness and swelling with concerns of cellulitis to the right lower extremity along with a chronic nonhealing wound. Patient maintained on Santyl and per ID recommendations to continue with Medihoney/Santyl and outpatient follow-up with the wound care center. Cultures initially in the clinic showing Enterobacter and at that time was not placed on antibiotics. Patient presented to the hospital concerns of sepsis related to this right lower extremity cellulitis and infection and repeat cultures continue to show Enterobacter. Patient was maintained on IV antibiotics showing clinical improvement and will continue on oral Cipro and Keflex per ID recommendations. Continue with local wound care and close outpatient follow-up with the wound care center. Patient has been instructed to elevate lower extremities while at rest. Patient with generalized weakness evaluated by physical therapy recommending rehab and family would like her to go to [facility] for some strength and mobility prior to returning home. Her caregiver and roommate is her 80-year-old sister. Please refer to other consultation notes for further HPI. Patient has been cleared to go to [facility] and insurance authorization has been obtained. Currently no reports of chest pain, shortness of breath, or palpitations. Patient is afebrile. No reports of nausea or vomiting and patient is tolerating diet. Patient will be going to [facility] today. CODE STATUS was addressed and patient is no code. Guarded prognosis given significant comorbidities. Physical exam: Gen: This is a 89-year-old female who is awake, alert and oriented x 2, well- developed, elderly appearing HEENT: Head is atraumatic, normocephalic. Pupils equal, round. Sclerae is anicte aleida. NECK: Supple. No JVD. No lymphadenopathy. No thyromegaly. LUNGS: Diminished breath sounds bilaterally otherwise clear to auscultation. No wheezes or rhonchi. No intercostal retractions. HEART: S1, S2 muffled, irregular ABDOMEN: Soft. Bowel sounds are present. No masses. No tenderness. EXTREMITIES: Right pedal edema noted, 1+ pitting. Bilateral lower extremity swelling, worse on the right. Dressing is currently dry and intact. No calf tenderness. NEUROLOGICAL: Patient is awake, alert and oriented x 2, baseline. Cranial nerves 2 through 12 are grossly intact. Diffusely weak Please refer to medication reconciliation sheet for a list of medications. The impression and plan of care has been dictated by Georgia Iyer, Nurse Practitioner as directed. Dr. Fabienne MD I have performed a history and examination and MDM of this patient, discussed the same with the dictator, and agree with the dictator's assessment and plan as written ,documented as a scribe. Based on total visit time, I have performed more than 50% of the visit. Patient Condition at Discharge: Stable Plan - Discharge Summary New Discharge Prescriptions: New Temazepam [Restoril] 7.5 mg PO HS PRN 3 Days #3 cap PRN Reason: Insomnia Ciprofloxacin HCl [Cipro] 500 mg PO BID 14 Days #28 tab Cephalexin [Keflex] 500 mg PO Q6HR 14 Days #56 cap Continue Latanoprost/Pf [Latanoprost 0.005% Eye Drop] 1 drop BOTH EYES HS Atorvastatin [Lipitor] 40 mg PO Q2D@2100 Apixaban [Eliquis] 2.5 mg PO BID Multivitamins, Thera [Multivitamin (formulary)] 1 tab PO DAILY Donepezil [Aricept] 10 mg PO DAILY Memantine [Namenda] 10 mg PO BID Metoprolol Tartrate [Lopressor] 50 mg PO BID Ferrous Sulfate [Iron (65 MG Elemental)] 325 mg PO HS Dapagliflozin Propanediol [Farxiga] 10 mg PO DAILY #30 tablet Furosemide [Lasix] 40 mg PO DAILY #33 tablet Gabapentin 300 mg PO BID #9 cap traMADol HCL 50 mg PO BID #6 tab Discharge Medication List Apixaban [Eliquis] 2.5 mg PO BID 10/10/18 [History] Atorvastatin [Lipitor] 40 mg PO Q2D@2100 10/10/18 [History] Latanoprost/Pf [Latanoprost 0.005% Eye Drop] 1 drop BOTH EYES HS 10/10/18 [History] Multivitamins, Thera [Multivitamin (formulary)] 1 tab PO DAILY 10/10/18 [History] Donepezil [Aricept] 10 mg PO DAILY 12/27/20 [History] Ferrous Sulfate [Iron (65 MG Elemental)] 325 mg PO HS 09/22/23 [History] Memantine [Namenda] 10 mg PO BID 09/22/23 [History] Dapagliflozin Propanediol [Farxiga] 10 mg PO DAILY #30 tablet 09/28/23 [Rx] Furosemide [Lasix] 40 mg PO DAILY #33 tablet 09/29/23 [Rx] Gabapentin 300 mg PO BID #9 cap 09/29/23 [Rx] Metoprolol Tartrate [Lopressor] 50 mg PO BID 03/22/24 [History] Temazepam [Restoril] 7.5 mg PO HS PRN 3 Days #3 cap 03/25/24 [Rx] traMADol HCL 50 mg PO BID #6 tab 03/25/24 [Rx] Cephalexin [Keflex] 500 mg PO Q6HR 14 Days #56 cap 03/26/24 [Rx] Ciprofloxacin HCl [Cipro] 500 mg PO BID 14 Days #28 tab 03/26/24 [Rx] Follow up Appointment(s)/Referral(s): [facility], [NON-STAFF] - 1 Week Aylin Sutherland NPC [Nurse Practitioner] - 1 Week George Quesada DO [Primary Care Provider] - 1-2 days Activity/Diet/Wound Care/Special Instructions: Will be going to [facility] Activity as tolerated Continue to elevate lower extremities while at rest Continue local wound care by applying Medihoney/santyl daily to the right lower extremity calf area daily and if becoming soiled, apply a nonadherent dressing and Kerlix to the right lower extremity Follow up at the wound care center with Aylin 1 week Continue Cipro and Keflex as directed for 2 weeks Follow-up infectious disease outpatient in the clinic Discharge/Stand Alone Forms: [employer] Pamphlet, Who Do I Call?, Assisted Living Facilities, Community Resources, Help In The Home, Personal Student Teacher Discharge Disposition: TRANSFER TO SNF/ECF
--- NOTE | 2024-03-26 11:40 | P.PN ---
Subjective Progress Note Date: 03/26/24 This is an 89-year-old female patient who follows with Dr. Quesada as her primary care provider. She has a history of chronic obstructive pulmonary disease, atrial fibrillation anticoagulated with Eliquis, diabetes mellitus, hyperlipidemia, hypertension, dementia, osteoarthritis, previous transcatheter aortic valve replacement. She also has a nonhealing leg ulceration on the lower extremity on the right. She follows at the wound care clinic. She resides with her sister. Today she was noted to have altered mental status, generalized weakness, poor appetite brought here to the emergency room. Chest x-ray shows cardiomegaly and diffuse interstitial and vascular opacity. Abdominal CT scan revealed vertebral compression collapse at T12 with 50% height loss. Asymmetrical enlarged right inguinal and upper right femoral chain lymph nodes measuring 2.7. Suspect inflammation/infection. Sigmoid diverticulosis without acute diverticulitis. CT scan of the brain revealed mild to moderate generali zed cerebral atrophy and moderate patchy burden of chronic small vessel ischemic disease. No acute intracranial abnormalities seen. White count 18.6. Hemoglobin 12.6. Platelets 121. Sodium 139. Potassium 3.9. Bicarb 31. BUN 39. Creatinine 1.21. Glucose 142. Troponin 0.018, 0.047, 0.045. proBNP 850. Viral screen negative. She did have a Tmax of 102.8 early this morning. She is seen today in consultation in the emergency department. She is currently awake and alert. Confused at times. Her family is at the bedside provides most of the information. The patient is seen today March 23, 2024 in follow-up on the regular medical floor. She is resting comfortably in bed. Awake and alert in no acute distress. Less confused today compared to yesterday. She is maintaining good O2 saturation in the 90s on 2 L/min per nasal cannula. She remains on vancomycin and cefepime. Right leg cultures are showing beta-hemolytic strep group G, gram-negative bacilli. Count 12.8. Hemoglobin 9.7. Platelets 74,000. Sodium 137. Potassium 3.3. Bicarb 28. BUN 42. Creatinine 1.34. Glucose 118. Anticoagulated with Eliquis. The patient is seen today March 24, 2024 in follow-up on the regular medical floor. She is awake and alert in no acute distress. Sitting up in bed. She denies any shortness of breath, cough or congestion. She is maintaining good O2 saturations in the 90s on room air. She is afebrile. Hemodynamically stable. Right leg wound infection is positive for beta-hemolytic strep group G, gram- negative bacilli. White count 7.2. Hemoglobin 9.9. Platelets 78,000. Sodium 130. Potassium 3.6. Bicarb 23. BUN 37. Creatinine 1.04. Glucose 101. She is continued on vancomycin and cefepime. Anticoagulated with Eliquis. The patient is seen today March 25, 2024 in follow-up on the regular medical floor. She is currently resting in bed. Awake and alert in no acute distress. Denies any worsening shortness of breath, cough or congestion. She remains on vancomycin and cefepime. Anticoagulated with Eliquis. Continues to receive Lasix. Right leg wound culture positive for beta-hemolytic strep group G, Enterobacter cloacae, Enterobacter aerogenes. Random vancomycin level 10.9. The patient is seen today March 26, 2024 in follow-up on the regular medical floor. She is awake and alert in no acute distress. Maintaining good O2 saturation 90s on room air. She denies any worsening shortness of breath, cough or congestion. She is continued on cefepime for her right leg wound. She is anticoagulated with Eliquis. Objective - Vital Signs Vital signs: Vital Signs Temp 98.0 F 03/26/24 07:02 Pulse 94 03/26/24 07:02 Resp 16 03/26/24 07:02 BP 141/71 03/26/24 07:02 Pulse Ox 96 03/26/24 07:02 FiO2 Intake & Output 03/25/24 03/26/24 03/26/24 18:59 06:59 18:59 Intake Total 2760 100 Balance 2760 100 Intake: Intake, IV Titration 100 Amount Cefepime 1 gm In Sodium 100 Chloride 0.9% 50 ml @ 12. 5 mls/hr IVPB Q12H PENDING SALE TO [facility] Rx #:[id number] Oral 2760 Other: Voiding Method Toilet Toilet Toilet External Catheter Diaper Diaper # Voids 5 1 # Bowel Movements 2 - Exam GENERAL EXAM: Alert, very pleasant 89-year-old female, resting comfortably in bed, on room air, in no apparent distress. HEAD: Normocephalic. EYES: Normal reaction of pupils, equal size. NOSE: Clear with pink turbinates. THROAT: No erythema or exudates. NECK: No masses, no JVD. CHEST: No chest wall deformity. LUNGS: Equal air entry with no crackles, wheeze, rhonchi or dullness. CVS: S1 and S2 normal with no audible murmur, regular rhythm. ABDOMEN: No hepatosplenomegaly, normal bowel sounds, no guarding or rigidity. SPINE: No scoliosis or deformity SKIN: No rashes CENTRAL NERVOUS SYSTEM: No focal deficits, tone is normal in all 4 extremities. EXTREMITIES: Right lower extremity with dressing in place. Peripheral pulses are intact. - Labs CBC & Chem 7: 03/24/24 05:46 03/24/24 05:46 Labs: Microbiology - Last 24 Hours (Table) 03/21/24 22:42 Blood Culture - Preliminary Blood 03/22/24 14:00 Gram Stain - Final Foot - Right Wound Culture - Final Beta Hemolytic Strep Group G Enterobacter cloacae Enterobacter aerogenes Assessment and Plan Assessment: Febrile illness possibly related to right lower extremity infection. Wound culture showing beta-hemolytic strep group G, Enterobacter cloacae, Enterobacter aerogenes Altered mental status secondary to above, improved Acute kidney injury improving Leukocytosis, improved Troponin leak Wound culture from right leg dated 03/10/2024 positive for Enterobacter cloacae, Enterobacter aerogenes, corynebacterium stratum, beta-hemolytic strep group G 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 Chronic obstructive pulmonary disease, inactive and stable Chronic tobacco dependence Atrial fibrillation, anticoagulated with Eliquis History of dementia Diabetes mellitus Hypertension Hyperlipidemia Osteoarthritis Plan: The patient was seen and evaluated Medications reviewed Stable and on room air Transitioned to Cipro and Keflex Follow-up with Dr. Quesada in our office in 1 week Patient was seen independently by the pulmonary nurse practitioner addressing pulmonary issues I have personally seen and examined the patient, performed the documentation and the assessment and plan as written. Number of minutes spent on the visit: 23 Dictation was produced using [employer] dictation software. Please excuse any grammatical, word or spelling errors.
== END 2024-03-26 11:54 | DRG 871 ==
LOC: EC 21:07 → 5NMEDONC 03-22 00:23
PROVIDERS: ADMIT Internal Medicine; ATTEND Internal Medicine
DX: A40.9 Streptococcal sepsis, unspecified (principal); G93.41 Metabolic encephalopathy; N17.9 Acute kidney failure, unspecified; I48.20 Chronic atrial fibrillation, unspecified; L03.115 Cellulitis of right lower limb; Z11.52 Encounter for screening for COVID-19; A41.59 Other Gram-negative sepsis; I24.89 Other forms of acute ischemic heart disease; L97.918 Non-pressure chronic ulcer of unspecified part of right lower leg with other specified severity; M48.54XA Collapsed vertebra, not elsewhere classified, thoracic region, initial encounter for fracture; Z79.01 Long term (current) use of anticoagulants; R65.20 Severe sepsis without septic shock; F03.90 Unspecified dementia, unspecified severity, without behavioral disturbance, psychotic disturbance, mood disturbance, and anxiety; E11.9 Type 2 diabetes mellitus without complications; M19.90 Unspecified osteoarthritis, unspecified site; R79.89 Other specified abnormal findings of blood chemistry; E87.6 Hypokalemia; I44.7 Left bundle-branch block, unspecified; F17.210 Nicotine dependence, cigarettes, uncomplicated; E78.5 Hyperlipidemia, unspecified; J44.9 Chronic obstructive pulmonary disease, unspecified; K57.30 Diverticulosis of large intestine without perforation or abscess without bleeding; Z79.84 Long term (current) use of oral hypoglycemic drugs; Z79.899 Other long term (current) drug therapy; Z95.2 Presence of prosthetic heart valve; Z91.048 Other nonmedicinal substance allergy status; Z87.19 Personal history of other diseases of the digestive system; Z90.49 Acquired absence of other specified parts of digestive tract
CPT/HCPCS: 36415; 51798; 70450; 71045; 71046; 74176; 80048; 80053; 80202; 80306; 81003; 83605; 83735; 83880; 84145; 84484; 85025; 85610; 85730; 86140; 87040; 87070; 87075; 87077; 87086; 87186; 87205; 87636; 93005; 94760; 96365; 96366; 96367; 96368; 96375; 99285